=== PATIENT | male | born 1950 | race Caucasian/White ===

== ENCOUNTER 2020-04-06 07:57 | Outpatient (CLI) | payer MEDICARE, OTHER, SELFPAY ==
[2020-04-06 08:41] LABS: Add Urine Microscopic? NO
[2020-04-06 08:52] LABS: Bilirubin Urine Neg (NEGATIVE); Blood Urine Neg (Negative); Glucose Urine UA Norm (Normal); Ketones Urine Negative (Negative); Leukocyte Esterase Urine Negative (Negative); Nitrate Urine Negative (Negative); Protein Urine Neg (Negative); Specific Gravity, Urine 1.015 (1.005-1.030); Urine Appearance Clear (CLEAR); Urine Color Yellow (Yellow); Urobilinogen Urine Norm (Negative)
[2020-04-06 09:04] LABS: Alanine Aminotransferase 20 U/L (0-41); Albumin Level 4.5 g/dL (3.5-5.2); Alkaline Phosphatase 104 IU/L (40-130); Anion Gap 17.5 (5-19); Aspartate Amino Transferase 22 U/L (0-40); Blood Urea Nitrogen 53 mg/dL (8-23); Calcium 9.1 mg/dL (8.5-10.5); Carbon Dioxide 24 mmol/L (22-29); Chloride 107 mmol/L (98-107); Globulin 2.9 g/dL (1.3-4.6); Glucose 94 mg/dL (65-115); Osmolality Calculated 296 mOsm/kg (285-295); Potassium 4.5 mmol/L (3.5-5.1); Sodium 144 mmol/L (136-145); Total Bilirubin 0.4 mg/dL (0.15-1.2); Total Protein 7.4 g/dL (6.6-8.7)
== END 2020-04-06 07:58 | disposition home or self-care (01) ==
LOC: LAB 08:00
PROVIDERS: PCP Internal Medicine; Visit Provider Orthopaedic Surgery
DX: E11.9 Type 2 diabetes mellitus without complications (principal)
CPT/HCPCS: 36415; 80053; 81003

== ENCOUNTER 2020-08-10 07:50 | Outpatient (CLI) | payer MEDICARE, OTHER, SELFPAY ==
[2020-08-10 08:25] LABS: Alanine Aminotransferase 18 U/L (0-41); Albumin Level 4.5 g/dL (3.5-5.2); Alkaline Phosphatase 81 IU/L (40-130); Anion Gap 18.2 (5-19); Aspartate Amino Transferase 17 U/L (0-40); Blood Urea Nitrogen 57 mg/dL (8-23); Calcium 10.1 mg/dL (8.5-10.5); Carbon Dioxide 26 mmol/L (22-29); Chloride 102 mmol/L (98-107); Globulin 2.5 g/dL (1.3-4.6); Glucose 120 mg/dL (65-115); Osmolality Calculated 311 mOsm/kg (285-295); Potassium 4.2 mmol/L (3.5-5.1); Sodium 142 mmol/L (136-145); Total Bilirubin 0.4 mg/dL (0.15-1.2)
== END 2020-08-10 07:51 | disposition home or self-care (01) ==
LOC: LAB 07:54
PROVIDERS: PCP Internal Medicine; Visit Provider Orthopaedic Surgery
DX: E11.9 Type 2 diabetes mellitus without complications (principal)
CPT/HCPCS: 36415; 80053

== ENCOUNTER → 2021-09-13 10:51 | Outpatient (BNVA) | payer MEDICARE, SELFPAY | PROVIDERS: PCP Internal Medicine; Visit Provider Surgery | DX: Z01.818 Encounter for other preprocedural examination (principal); Z20.822 Contact with and (suspected) exposure to COVID-19 | CPT/HCPCS: 87635 ==

== ENCOUNTER 2021-09-16 05:44 | Day surgery (SDC) | payer MEDICARE, OTHER, SELFPAY ==
[2021-09-13 13:59] VITALS: BMI 29.0
--- NOTE | 2021-09-16 06:01 | P.HP_ITS ---
Same Day Surgery H&P Indication for Procedure/HPI DATE OF PROCEDURE: September 16, 2021 CHIEF COMPLAINT/INDICATIONFOR SURGICAL PROCEDURE: Colon polyps PREOP DIAGNOSIS: History of colon polyps PLANNED PROCEDRUE: Operation Date: 09/16/21 07:00 Proposed Procedures p Colonoscopy 27315 Z12.11(Not Applicable) - Sid Dimas MD 08/12/21 This is a pleasant 72 years old gentleman comes today escorted by his as he is referred to me for surveillance colonoscopy in preparation for kidney transplantation due to his chronic renal disease. Patient is getting dialysis Monday and Monday through a distal left forearm AV fistula. Patient denies any other symptoms. Patient did undergo colonoscopy back in 2018 by me and was found to have colon polyps. Interim history 09/16/2021 Patient comes today for surveillance colonoscopy ROS All systems have been reviewed negative except as for the above or per problem list Medications/Allergies* Home Medications Medication Instructions Recorded Confirmed Type allopurinol 100 mg tablet 200 mg PO DAILY tab 08/12/21 09/13/21 History ascorbic acid (vitamin C) 500 mg 500 mg PO DAILY 08/12/21 09/13/21 History tablet aspirin 81 mg tablet,delayed 81 mg PO DAILY 08/12/21 09/13/21 History release cholecalciferol (vitamin D3) 50 50 mcg PO DAILY 08/12/21 09/13/21 History mcg (2,000 unit) capsule citalopram 40 mg tablet 20 mg PO DAILY 08/12/21 09/13/21 History colchicine 0.6 mg tablet 0.3 mg PO DAILY 08/12/21 09/13/21 History insulin glargine 100 unit/mL (3 16 unit SUBCUT .qpm ml 08/12/21 09/13/21 History mL) subcutaneous pen insulin lispro 100 unit/mL 12 unit SUBCUT TID 08/12/21 09/13/21 History subcutaneous pen cdchdm-xukcsdkm-irogpvg 1 cap PO TID 08/12/21 09/13/21 History 12,000-38,000-60,000 unit capsule,delayed rel midodrine 5 mg tablet 5 mg PO DAILY 08/12/21 09/13/21 History omega 2-pvl-vyz-fish oil 1,000 mg 1 cap PO BID 08/12/21 09/13/21 History (120 mg-180 mg) capsule omeprazole 20 mg capsule,delayed 20 mg PO DAILY 08/12/21 09/13/21 History release simvastatin 80 mg tablet 80 mg PO DAILY 08/12/21 09/13/21 History tamsulosin 0.4 mg capsule 0.4 mg PO DAILY 08/12/21 09/13/21 History tolterodine 2 mg tablet 2 mg PO DAILY 08/12/21 09/13/21 History Allergies/Adverse Reactions Allergy/AdvReac Type Severity Reaction Status Date / Time No Known Allergies Allergy Unverified 08/14/21 14:09 Pertinent History/Comorbid Conditions* Family History (Updated 08/12/21 @ 08:43 by Melissa Adame MA) Diabetes CAD (coronary artery disease) Chronic kidney disease (CKD) Lung disease Cancer Social History Smoking and tobacco status: former smoker Pertinent Exam Findings alert, oriented x 3, regular rate & rhythm and procedure specific exam findings (Abdominal examination nontender nondistended soft) Recommendations Surgery/Procedure today (Colonoscopy) Other Plans: Plan of care; After thorough history and physical examination and reviewing the chart, plan to perform surveillance colonoscopy. I discussed with the patient in details the risks,benefits,alternatives and indications.The risk of aspiration, bleeding, soft tissue injury, perforation of the colon and other potential concomitant complications were explained to the patient in details,also the potential need for Laproscoy/Laparotomy to repair any related complications including but not limited to colectomy and or Closotomy.The patient understood this well and did agree to proceed. Rationale was carefully and clearly discussed with the patient.Appropriate informed consent have been reviewed and signed All questions have been answered and all concerns have been addressed to patient's satisfaction. Verbal and written Instructions were given to the patient for colonoscopy prep Coding Level of Care Code Acute Offal Icer Poultry for Joseph Manriquez
[2021-09-16 06:11] VITALS: BP 143/67; PULSE 84; RESP 18; TEMP 36.1; O2SAT 95
[2021-09-16] MEDS: sodium chloride 0.9% 1,000 ML 30 ML IV (06:25)
--- NOTE | 2021-09-16 06:41 | ANES.PREANE2 ---
Pre-Anesthetic Assessment Pre-Anesthetic Assessment: Height/Weight: Height 1.7 m Weight 83.915 kg Temp Pulse Resp BP Pulse Ox 97 F L 84 18 143/67 95 09/16/21 06:11 09/16/21 06:11 09/16/21 06:11 09/16/21 06:11 09/16/21 06:11 Preop Diagnosis: History of colon polyps Proposed Procedure: Operation Date: 09/16/21 07:00 Proposed Procedures p Colonoscopy 07951 Z12.11(Not Applicable) - Sid Dimas MD Last intake: Intake Last Liquid Date 09/15/21 Last Liquid Time 22:00 Last Solid Date 09/14/21 Last Solid Time 18:00 Social: Comment: hx smoking quit 10 months ago Exam: Pre-Anes Outpt Exam: alert, oriented x 3, clear to auscultation bilaterally and regular rate & rhythm Airway: Submandibular: WNL Cervical ROM: WNL MP: 3 Pulmonary: Pulmonary: None reported CV/HEM: CV/HEM: None reported : : Chronic renal failure Comments: dialysis since Hepatic: Hepatic: None reported GI: GI: None reported Metabolic: Metabolic: DM Musc/skel: Musc/skel: None reported Neuropsych: Neuropsych: Anxiety, CVA and Depression Anesthetic Plan: ASA status: 3 Anesthesia: Anesthesia Evaluation and MAC Risk of > 500 ml blood loss (7ml/kg in children): No Medications/Allergies Current Medications: Current Medications Generic Name Dose Route Start Last Admin Trade Name Freq PRN Reason Stop Dose Admin Sodium Chloride 1,000 mls @ 30 ml s/hr 09/16/21 06:00 09/16/21 06:25 Sodium Chloride 0.9% IV 30 mls/hr .Q24H CONTRERAS Administration PFSH Anesthesia PFSH: Family History Other CAD (coronary artery disease) Cancer Chronic kidney disease (CKD) Diabetes Lung disease Social History Smoking and tobacco status: former smoker Data Anesthesia Cardiac Studies: No Data to Display
[2021-09-16 07:32] VITALS: BP 90/44; PULSE 79; RESP 18; TEMP 36.5; O2SAT 93
[2021-09-16 07:48] VITALS: BP 98/52; PULSE 72; RESP 20; O2SAT 97
--- NOTE | 2021-09-16 10:03 | ANE.PACU2 ---
Inpatient post-anesthesia follow up: Airway intact: Yes Vital signs: Temperature 97.7 F Pulse Rate 72 Respiratory Rate 20 Blood Pressure 98/52 Pulse Oximetry 97 Oxygen Delivery Me thod Room Air Oxygen Flow Rate Fraction of Inspir ed Oxygen Hydration adequate: Yes Nausea and vomiting: No Pain level: 1 Mental status: Baseline
== END 2021-09-16 08:08 | disposition home or self-care (01) ==
PROVIDERS: PCP Family Medicine; Visit Provider Surgery
PROC: 0DJD8ZZ Inspection of Lower Intestinal Tract, Via Natural or Artificial Opening Endoscopic (ICD-10-PCS; CPT 45378; principal; 2021-09-16 07:00)
DX: Z12.11 Encounter for screening for malignant neoplasm of colon (principal); Z86.010 Personal history of colon polyps; D12.2 Benign neoplasm of ascending colon; D12.4 Benign neoplasm of descending colon; Z83.3 Family history of diabetes mellitus; Z82.49 Family history of ischemic heart disease and other diseases of the circulatory system; Z87.891 Personal history of nicotine dependence; N18.9 Chronic kidney disease, unspecified; Z99.2 Dependence on renal dialysis; E11.9 Type 2 diabetes mellitus without complications; Z79.4 Long term (current) use of insulin
CPT/HCPCS: 45380; 45385; 88305; J2704; J7030

== ENCOUNTER 2022-05-10 08:19 | Outpatient (RCR) | payer OTHER, MEDICARE, SELFPAY | END 2022-06-03 23:59 | disposition home or self-care (01) | LOC: SPT 08:19 | PROVIDERS: PCP Family Medicine; Visit Provider Family Medicine | DX: M62.81 Muscle weakness (generalized) (principal) | CPT/HCPCS: 97110; 97112; 97162 ==

== ENCOUNTER 2022-06-04 06:00 | Outpatient (RCR) | payer OTHER, SELFPAY | END 2022-07-04 23:59 | disposition home or self-care (01) | LOC: SPT 06:00 | PROVIDERS: PCP Family Medicine; Visit Provider Family Medicine | DX: M62.81 Muscle weakness (generalized) (principal) | CPT/HCPCS: 97110; 97112 ==

== ENCOUNTER 2022-07-07 06:11 | Outpatient (CLI) | payer OTHER, SELFPAY ==
--- NOTE | 2022-07-07 | USR_ITS ---
PROCEDURE INFORMATION: Exam: US Abdomen; Limited Exam date and time: 07/07/2022 6:39 AM Age: 72 years old Clinical indication: Screening exam; Other: Aaa screening TECHNIQUE: Imaging protocol: Real time ultrasound of the abdomen with image documentation. Limited exam focused on the region of clinical interest. COMPARISON: No relevant prior studies available. FINDINGS: Aorta: There is fusiform aneurysmal dilatation of the distal infrarenal abdominal aorta measuring up to 3.6 x 2.8 x 7.2 cm (AP x transverse x length). There is linear echogenic material within the lumen of the aneurysm, suspicious for dissection. Proximal abdominal aorta at 2.6 x 2.7 cm. Mid abdominal aorta 2.0 x 2.1 cm. Common iliac arteries: Left common iliac artery 0.9 x 0.9 cm. Right common iliac artery 1.0 x 0.8 cm. US/[place] [id number] IMPRESSION: Fusiform aneurysmal dilatation of the distal abdominal aorta, with linear echogenic material within the lumen, suspicious for dissection.
== END 2022-07-07 06:12 | disposition home or self-care (01) ==
LOC: RAD 06:11
PROVIDERS: PCP Family Medicine; Visit Provider Family Medicine
DX: Z13.6 Encounter for screening for cardiovascular disorders (principal); I77.811 Abdominal aortic ectasia
CPT/HCPCS: 76706

== ENCOUNTER 2022-07-07 07:36 | Emergency (ER) | payer OTHER, SELFPAY ==
--- NOTE | 2022-07-07 07:39 | XRR_ITS ---
PROCEDURE INFORMATION: Exam: XR Chest Exam date and time: 07/07/2022 7:46 AM Age: 72 years old Clinical indication: Cough and dyspnea; Patient HX: Abnormal aorta on US; Additional info: Dyspnea/cough TECHNIQUE: Imaging protocol: Radiologic exam of the chest. Views: 1 view. COMPARISON: CR XR shoulder RT min 2V* [id number] 10/08/2016 9:48 AM FINDINGS: Lungs: Unremarkable. No consolidation. Pleural spaces: Unremarkable. No pleural effusion. No pneumothorax. Heart/Mediastinum: Unremarkable. No cardiomegaly. Bones/joints: Unremarkable. XR/XR chest 1V portable [id number] IMPRESSION: No acute findings.
--- NOTE | 2022-07-07 07:39 | CT_ITS ---
WS: [id number] CT ANGIOGRAPHY OF THE ABDOMINAL AORTA WITH RUNOFF TO THE ANKLES HISTORY: dissection seen on US TECHNIQUE: Arterial injection is performed during imaging to evaluate the aorta and runoff vessels to the ankles. MIP and volume rendering imaging has also been performed. All images are reviewed. All C T scans at [facility] use at least one of these dose optimization techniques: automated exposu re control; mA and/or kV adjustment per patient size (includes targeted exams where dose is matched t o clinical indication); or iterative reconstruction. Contrast: Omnipaque 350; 100 mL IV. DLP: 646.10 mGy.cm COMPARISON: Prior CT 10/11/2012. Ultrasound 07/07/2022. Abdominal aorta: Extensive atherosclerotic plaque within the abdominal aorta. There is plaque which b ecomes nearly circumferential distally with narrowing of the lumen. Heavy calcification continues int o the iliac arteries bilaterally. Moderate stenosis involving the origins of the celiac axis and SMA. Calcified and noncalcified plaque in the mid to distal SMA. No aortic dissection is identified. There is no periaortic hematoma. Calcified plaque continues into the iliac arteries and femoral arteries bilaterally. RIGHT lower extremity runoff: Moderate plaque in the iliac artery through the internal and external i liac arteries and femoral artery. Focal areas of stenosis. Distal internal iliac artery is occluded. Multifocal areas of stenosis approaching 50% of the femoral artery. Mixed plaque with stenosis at 60% involving the proximal superficial femoral artery. Additional atherosclerotic plaque to the poplitea l artery. Intermittently visualized anterior tibial artery. Limited small vessel runoff to the ankle. LEFT lower extremity arterial system: Moderate plaque throughout the LEFT common iliac artery through the internal and external iliacs. 70% stenosis proximal and mid external iliac artery. Continued mul tifocal areas of stenosis throughout the superficial femoral artery to the popliteal artery. There is heavy calcified plaque. Plaque continues into the popliteal artery with no occlusions. Intermittentl y visualized calcification below the knee. Three-vessel runoff to the ankle and appears more robust t [place] on the RIGHT. Lung bases are clear. Normal size heart. Small hiatal hernia. Prior cholecystectomy. Pancreatic atrop hy. Calcifications through the visualized atrophic pancreas. No adrenal mass. No ischemic changes in the GI tract obstruction. Absent LEFT kidney. Small atrophied RIGHT kidney with acquired cysts. No solid mass identified. Diffu se bladder wall thickening due to underdistention and chronic outlet obstruction. Prostate gland is m ildly enlarged. Appendix has been removed. L4 anterolisthesis by 2 mm. Cystic changes developing in t he RIGHT femoral head. CT/CT angio abd aorta runof [id number] IMPRESSION: 1. No evidence for an aortic dissection or aneurysm. 2. Moderate to severe atherosclerotic disease throughout the aorta, mesenteric arteries and lower extremity arteries. There are areas of stenosis but no occl usions. 3. At least 60% stenosis proximal RIGHT superficial femoral artery. 4. Multifocal areas of 70% stenosis LEFT external iliac artery with additional moderate stenoses throughout the superficial femoral artery. 5. Slightly greater robust runoff to the LEFT ankle is compared to the RIGHT. RIGHT anterior tibial artery is only intermittently visualized. 6. Prior LEFT nephrectomy. 7. Prior appendectomy and cholecystectomy. 8. Atrophic RIGHT kidney with acquired cysts.
[2022-07-07 07:51] VITALS: BP 157/83; PULSE 81; RESP 18; TEMP 36.4; O2SAT 99; BMI 29.2
--- NOTE | 2022-07-07 07:57 | ECG_ITS ---
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 Measurements Intervals [place] Rate: 80 P: 84 LA: 160 QRS: 32 QRSD: 94 T: 65 QT: 394 QTc: 455 Interpretive Statements SINUS RHYTHM WITH SINUS ARRHYTHMIA Compared to ECG 04/18/2019 03:48:59 Sinus bradycardia no longer present Electronically Signed On 07-07-2022 15:03:27 CDT by Lras Dunn M.D. [email or web address] system [id number]
[2022-07-07 08:00] VITALS: BP 149/83; PULSE 79; RESP 18; O2SAT 99
[2022-07-07 08:02] LABS: Basophils # 0.1 10^3/uL (0.0-0.1); Basophils % 0.9 %; Eosinophils # 0.2 10^3/uL (0.0-0.8); Eosinophils % 2.8 %; Hematocrit 36.3 % (42.0-52.0); Hemoglobin 11.4 g/dL (11.7-16.6); Lymphocytes # 1.4 10^3/uL (0.8-4.8); Lymphocytes % 16.9 %; Mean Corpuscular HGB Conc 31.4 g/dL (30.0-36.0); Mean Corpuscular Hemoglobin 31.1 pg (28.0-34.0); Mean Corpuscular Volume 99.2 fl (80-94); Mean Platelet Volume 9.9 fL (7.4-10.4); Monocytes # 0.8 10^3/uL (0.2-0.9); Monocytes % 9.6 %; Neutrophils # 5.55 10^3/uL (1.8-7.7); Neutrophils % 69.3 %; Nucleated Red Blood Cells % 0 %; Platelet Count 183 10^3/cmm (130-400); Red Blood Count 3.66 10^6/uL (4.1-5.3); Red Cell Distribution Width 13.3 % (12.1-15.1)
[2022-07-07 08:15] VITALS: BP 155/80; PULSE 86; O2SAT 99
[2022-07-07 08:16] LABS: INR 0.99 (0.8-1.2); Partial Thromboplastin Time 26.6 SECONDS (23.9-36.7)
[2022-07-07] MEDS: iohexol 350 mg/mL 500 mL Btl (per mL) IV (08:28)
--- NOTE | 2022-07-07 08:32 | W.ED.GENADLT ---
HPI - General Adult General: Chief complaint: General Medical Stated complaint: Sent here after aorta scan Time Seen by Provider: 07/07/22 07:39 Source: patient Mode of arrival: wheelchair History of Present Illness: Ghipyoc-wtoe-nry male is in the x-ray department today getting ultrasound screening for abdominal aortic aneurysm the initial read came back for review read as having a dissection. He is brought emergently to the ER. He is having no symptoms at all. He does have a history of end-stage renal disease and is on dialysis Monday he did receive all his regular dialysis runs this week. He states he otherwise feels fine he is. He has not had any abdominal pain has not had any chest pain he is not had any discomfort with his bowels. No lightheadedness dizziness. Review of systems completely negative. Patient is nondiabetic he has previously had a stroke he has not had any coronary disease to date. Relieving factors: none Exacerbating factors: none Associated symptoms: Deny chest pain, confusion, cough, diaphoresis, decreased appetite, dyspnea, fevers/chills, headache(s), malaise, nausea, rash, palpitations, seizures, short of breath, syncope, vomiting or weakness Review of Systems Const: Denies: fever(s), chills, fatigue, malaise or diaphoresis ENMT: Denies: throat pain, ear or mastoid pain, nasal discharge or nasal congestion Card: Denies: chest pain, palpitations or syncope Resp: Denies: dyspnea GI: Denies: abdominal pain, nausea or vomiting : Denies: flank pain, difficulty urinating, dysuria, urinary frequency or urinary urgency Musc: Denies: back pain Skin/Breast: Denies: rash Neuro: Denies: headache(s) or confusion PFSH ED PFSH: Medical History Diabetes mellitus GERD (gastroesophageal reflux disease) History of bladder cancer History of colon polyps History of stroke 2009 Surgical History History of appendectomy History of cholecystectomy History of colonoscopy History of kidney removal left side Family History Other CAD (coronary artery disease) Cancer Chronic kidney disease (CKD) Diabetes Lung disease Social History Smoking and tobacco status: former smoker Physical Exam Const: GENERAL APPEARANCE: cooperative and comfortable ORIENTATION/CONSCIOUSNESS: Yes awake, Yes oriented to person, Yes oriented to place and Yes oriented to time Resp: COMMON NORMALS: normal respiratory effort, No retractions, No use of accessory muscles and clear to auscultation bilaterally AUSCULTATION: clear to auscultation bilaterally Cardio: COMMON NORMALS: regular rate, regular rhythm and No murmurs present (Cardio) RATE: regular rate RHYTHM: regular rhythm GI: COMMON NORMALS: Soft to palpation and No hepatosplenomegaly present AUSCULTATION: Yes normoactive bowel sounds PALPATION: Yes Soft to palpation, No Tenderness to palpation present (GI), No Guarding due to palpation present (GI) and Yes No hepatosplenomegaly present Extremity: COMMON NORMALS: normal to inspection, capillary refill normal, no clubbing, cyanosis or edema, no calf tenderness and no pedal edema Neuro: SENSORIUM/ORIENTATION: Yes oriented to person, Yes oriented to place and Yes oriented to time Skin: COMMON NORMALS: no rashes or lesions noted GENERAL SKIN EXAM: no rashes or lesions noted Course Vital Signs: Vital signs: Vital Signs Temperature 97.6 F 07/07/22 07:51 Pulse Rate 77 07/07/22 09:38 Respiratory Rate 18 07/07/22 08:00 Blood Pressure 140/84 07/07/22 09:38 Pulse Oximetry 97 07/07/22 09:38 Oxygen Delivery Me thod 07/07/22 08:00 [facility] - General Adult Medical Decision Making CT abdominal aorta does not show any aneurysm or dissection significant arteriosclerosis and significant amount of stenosis in the iliac bilaterally patient is sick has pretty noticeable intermittent claudication particularly of the left leg which correlates to the CT findings. At this point I think he can be discharged home and there is no evidence of aortic dissection or critical stenosis however he does have potentially limb threatening stenosis distally he is fine while at rest and has had intermittent claudication with activity this is been an ongoing issue. Encouraged him to follow-up with his primary care doctor for referral for further vascular evaluation and consideration of intervention. Medical Records I reviewed the patient's medical records. Lab Data I reviewed the patient's lab results. : 07/07/22 07:55 Radiology Impressions Aorta w/Runoff CTA 07/07/22 07:39 IMPRESSION: 1. No evidence for an aortic dissection or aneurysm. 2. Moderate to severe atherosclerotic disease throughout the aorta, mesenteric arteries and lower extremity arteries. There are areas of stenosis but no occlusions. 3. At least 60% stenosis proximal RIGHT superficial femoral artery. 4. Multifocal areas of 70% stenosis LEFT external iliac artery with additional moderate stenoses throughout the superficial femoral artery. 5. Slightly greater robust runoff to the LEFT ankle is compared to the RIGHT. RIGHT anterior tibial artery is only intermittently visualized. 6. Prior LEFT nephrectomy. 7. Prior appendectomy and cholecystectomy. 8. Atrophic RIGHT kidney with acquired cysts. Chest X-Ray 07/07/22 07:39 IMPRESSION: No acute findings. Laboratory Results WBC 8.0 10^3/uL (4.0-10.0) 07/07/22 07:55 RBC 3.66 10^6/uL (4.1-5.3) L 07/07/22 07:55 Hgb 11.4 g/dL (11.7-16.6) L 07/07/22 07:55 Hct 36.3 % (42.0-52.0) L 07/07/22 07:55 MCV 99.2 fl (80-94) H 07/07/22 07:55 MCH 31.1 pg (28.0-34.0) 07/07/22 07:55 MCHC 31.4 g/dL (30.0-36.0) 07/07/22 07:55 RDW 13.3 % (12.1-15.1) 07/07/22 07:55 Plt Count 183 10^3/cmm (130-400) 07/07/22 07:55 MPV 9.9 fL (7.4-10.4) 07/07/22 07:55 Neut % (Auto) 69.3 % 07/07/22 07:55 Lymph % (Auto) 16.9 % 07/07/22 07:55 [place] % (Auto) 9.6 % 07/07/22 07:55 Eos % (Auto) 2.8 % 07/07/22 07:55 Baso % (Auto) 0.9 % 07/07/22 07:55 Neut # (Auto) 5.55 10^3/uL (1.8-7.7) 07/07/22 07:55 Lymph # (Auto) 1.4 10^3/uL (0.8-4.8) 07/07/22 07:55 [place] # (Auto) 0.8 10^3/uL (0.2-0.9) 07/07/22 07:55 Eos # (Auto) 0.2 10^3/uL (0.0-0.8) 07/07/22 07:55 Baso # (Auto) 0.1 10^3/uL (0.0-0.1) 07/07/22 07:55 Nucleated RBC % (auto) 0 % 07/07/22 07:55 Nucleated RBCs # 0.0 /100WBC 07/07/22 07:55 PT 13.40 SECONDS (12.1-14.9) 07/07/22 07:55 INR 0.99 (0.8-1.2) 07/07/22 07:55 APTT 26.6 SECONDS (23.9-36.7) 07/07/22 07:55 Blood Type B Positive 07/07/22 08:21 Rho(D) Type Positive 07/07/22 08:21 Antibody Screen Negative 07/07/22 08:21 Discharge Plan Discharge Patient Disposition: Home Clinical Impression: Arteriosclerosis of abdominal aorta, Claudication, intermittent, Iliac artery stenosis, left Condition: Stable Prescriptions: No Action Lantus Solostar U-100 Insulin 100 unit/mL (3 mL) insulin pen 16 unit SUBCUT BEDTIME Label Comments: bedtime omega 2-uwp-uxw-fish oil [Fish Oil] 1,000 mg (120 mg-180 mg) capsule 1 cap PO BID cholecalciferol (vitamin D3) 50 mcg (2,000 unit) capsule 50 mcg PO QPM midodrine 5 mg tablet 5 mg PO TID Rx Instructions: do not give last dose of day after 6PM or within 4 hrs of bedtime omeprazole 20 mg capsule,delayed release(DR/EC) 20 mg PO DAILY citalopram 40 mg tablet 20 mg PO DAILY colchicine [Colcrys] 0.6 mg tablet See Rx Instructions .ROUTE .COMPLEX Rx Instructions: 0.3 mg orally TWO TIMES A WEEK- MONDAY AND MONDAY aspirin 81 mg tablet,delayed release (DR/EC) 81 mg PO DAILY Hold Instructions: Resume on 09/21/21. tolterodine [Detrol] 2 mg tablet 2 mg PO DAILY ascorbic acid (vitamin C) 500 mg tablet 1,000 mg PO BID allopurinol 100 mg tablet 200 mg PO DAILY simvastatin 80 mg tablet 40 mg PO QPM tamsulosin 0.4 mg capsule 0.4 mg PO DAILY Creon 12,000-38,000 -60,000 unit capsule,delayed release(DR/EC) 3 cap PO TID Rx Instructions: administer with meals and/or snacks bupropion HCl 150 mg tablet extended release 24 hr 150 mg PO QAM insulin lispro [Humalog KwikPen Insulin] 100 unit/mL insulin pen See Rx Instructions .ROUTE .COMPLEX Rx Instructions: SLIDING SCALE oxybutynin chloride 5 mg tablet 5 mg PO TID vit B comp no.9-mzsaf-M-biotin 1-60-300 mg-mg-mcg tablet 1 tab PO DAILY sevelamer HCl 800 mg tablet 800 mg PO TID Rx Instructions: must administer with a meal/food sodium bicarbonate 650 mg tablet 650 mg PO TID lanthanum 750 mg Tablet,Chewable 750 mg PO TID Rx Instructions: administer with food; chew thoroughly before swallowing Daily-Oliva Tablet 1 tab PO QAM Discharge Orders: Discharge ED (Routine); Ordered 07/07/22 Ordered By: Gomez Acuna Referrals: Annmarie Jacobson MD [Primary Care Provider] - Discharge Diet: Usual diet Discharge Activity: Increase activity as tolerated Patient Instructions: Opioid Safety, Pain Management Activity Restrictions/Additional Instructions: Follow-up with your primary care provider regarding the stenosis to the arteries in the legs for further evaluation and consideration of possible intervention. Coding Level of Care Code ED Turbine Engineer for Manfredg Fwd Exam Detailed
[2022-07-07 09:00] VITALS: BP 151/100; PULSE 77; O2SAT 99
[2022-07-07 09:38] VITALS: BP 140/84; PULSE 77; O2SAT 97
[2022-07-07 10:30] LABS: Adenovirus Not Detected (NOT DETECT); Chlamydia Pneumoniae Not Detected (NOT DETECT); Coronavirus 229E,HKU1,NL63,OC4 Not Detected (NOT DETECT); Human Metapneumovirus Not Detected (NOT DETECT); Human Rhinovirus/Enterovirus Not Detected (NOT DETECT); Influenza A Not Detected (NOT DETECT); Influenza A H1 Not Detected (NOT DETECT); Influenza A H1-2009 Not Detected (NOT DETECT); Influenza A H3 Not Detected (NOT DETECT); Influenza B Not Detected (NOT DETECT); Mycoplasma Pneumoniae Not Detected (NOT DETECT); Parainfluenza Virus Type 1 Not Detected (NOT DETECT); Parainfluenza Virus Type 2 Not Detected (NOT DETECT); Parainfluenza Virus Type 3 Not Detected (NOT DETECT); Parainfluenza Virus Type 4 Not Detected (NOT DETECT); Respiratory Syncytial Virus A Not Detected (NOT DETECT); Respiratory Syncytial Virus B Not Detected (NOT DETECT); SARS-COV-2 Not Detected (NOT DETECT)
== END 2022-07-07 09:40 | disposition home or self-care (01) ==
PROVIDERS: Emergency Provider Family Medicine; PCP Family Medicine
DX: I70.0 Atherosclerosis of aorta (principal); I70.212 Atherosclerosis of native arteries of extremities with intermittent claudication, left leg; Z79.82 Long term (current) use of aspirin; Z79.4 Long term (current) use of insulin; E11.9 Type 2 diabetes mellitus without complications; Z85.51 Personal history of malignant neoplasm of bladder; Z86.73 Personal history of transient ischemic attack (TIA), and cerebral infarction without residual deficits; Z90.5 Acquired absence of kidney; Z87.891 Personal history of nicotine dependence; Z20.822 Contact with and (suspected) exposure to COVID-19
CPT/HCPCS: 71045; 75635; 85025; 85610; 85730; 86850; 86900; 87635; 93005; 99285; Q9967

== ENCOUNTER 2022-07-29 10:50 | Inpatient (IN) | payer OTHER, SELFPAY ==
[2022-07-29 11:18] VITALS: PULSE 107; RESP 16; TEMP 37.9; O2SAT 97
[2022-07-29 12:47] LABS: Basophils % 0.3 %; Eosinophils % 0.3 %; Hematocrit 32.4 % (42.0-52.0); Hemoglobin 10.3 g/dL (11.7-16.6); Lymphocytes # 0.7 10^3/uL (0.8-4.8); Lymphocytes % 6.2 %; Mean Corpuscular HGB Conc 31.8 g/dL (30.0-36.0); Mean Corpuscular Hemoglobin 30.8 pg (28.0-34.0); Mean Platelet Volume 9.7 fL (7.4-10.4); Monocytes # 1.2 10^3/uL (0.2-0.9); Monocytes % 9.8 %; Neutrophils # 9.86 10^3/uL (1.8-7.7); Neutrophils % 83.1 %; Nucleated Red Blood Cells % 0 %; Platelet Count 174 10^3/cmm (130-400); Red Blood Count 3.34 10^6/uL (4.1-5.3); Red Cell Distribution Width 14.4 % (12.1-15.1); White Blood Count 11.9 10^3/uL (4.0-10.0)
--- NOTE | 2022-07-29 13:03 | ECG_ITS ---
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 Measurements Intervals [place] Rate: 104 P: 58 AK: 156 QRS: 7 QRSD: 99 T: 96 QT: 382 QTc: 503 Interpretive Statements SINUS TACHYCARDIA NONSPECIFIC T-WAVE ABNORMALITY Compared to ECG 07/07/2022 07:57:38 T-wave abnormality now present Sinus rhythm no longer present Sinus arrhythmia no longer present Electronically Signed On 07-30-2022 11:02:13 FIELD RING ASSEMBLER by Ross Campbell M.D. [email or web address] [email or web address] health [email or web address] hospital.[email or web address]/store/[id number]
[2022-07-29 13:05] LABS: Alanine Aminotransferase 14 U/L (0-41); Albumin Level 4.5 g/dL (3.5-5.2); Alkaline Phosphatase 91 U/L (40-130); Anion Gap 13.6 (5-19); Aspartate Amino Transferase 12 U/L (0-40); Blood Urea Nitrogen 16 mg/dL (8-23); Carbon Dioxide 37 mmol/L (22-29); Chloride 93 mmol/L (98-107); Globulin 2.9 g/dL (1.3-4.6); Glucose 77 mg/dL (65-115); Osmolality Calculated 290 mOsm/kg (285-295); Potassium 3.6 mmol/L (3.5-5.1); Sodium 140 mmol/L (136-145); Total Bilirubin 0.7 mg/dL (0.15-1.2); Total Protein 7.4 g/dL (6.6-8.7)
[2022-07-29 13:08] LABS: Glucose Point of Care 85 mg/dL (70-110)
--- NOTE | 2022-07-29 13:18 | PC.NURSE ---
PT PLACED ON CONTINUOUS NIBP, SPO2, AND CM
[2022-07-29 13:20] VITALS: BP 101/60; PULSE 102; RESP 16; O2SAT 96
[2022-07-29 13:22] LABS: Lactic Sepsis W/Reflex 1.6 mmol/L (0.5-2.2)
--- NOTE | 2022-07-29 13:25 | ED_ITS ---
HPI - Fever General: Chief Complaint: Fever Stated Complaint: Weakness, bump on rearend Time Seen by Provider: 07/29/22 13:00 Source: patient Mode of arrival: ambulatory History of Present Illness: 72-year-old male who presents emergency room with complaint of weakness describes a lump in the gluteal cleft area. He has had a low-grade fever as well. Is been red and irritated and inflamed. He had a full course of dialysis today he has been a little bit confused at times he is slightly tachycardic. No drainage from the wound. No vomiting no dysuria urgency or frequency he does still does have urine production. MD elicited complaint: fever, malaise and weakness Pertinent past history: other (End-stage renal disease) Exacerbating factors: nothing Relieving factors: nothing Associated symptoms: Reports chills and confusion; Deny abdominal pain, flank pain, chest pain, cough, diarrhea, dysuria, extremity pain, headache(s), myalgias, nasal congestion, nausea, night sweats, rash, rhinorrhea, short of breath, sinus pain, stiffness, sore throat, vomiting or weight loss Treatments prior to arrival fever: none Review of Systems Const: Reports: fever(s), chills, fatigue and malaise; Denies: night sweats ENMT: Denies: nasal congestion or sinus pain Card: Denies: chest pain, palpitations or irregular heart rhythm Resp: Denies: dyspnea, productive cough or non-productive cough GI: Denies: abdominal pain, nausea, vomiting or diarrhea : Denies: flank pain or dysuria Musc: Denies: extremity pain Skin/Breast: Reports: erythema, skin tenderness and skin swelling Neuro: Reports: confusion; Denies: headache(s) PFSH ED PFSH: Medical History Acute metabolic encephalopathy Anxiety BPH (benign prostatic hyperplasia) Depression Diabetes mellitus ESRD (end stage renal disease) ESRD on dialysis GERD (gastroesophageal reflux disease) Gout History of bladder cancer History of colon polyps History of stroke 2010 Flor-rectal abscess Surgical History History of appendectomy History of cholecystectomy History of colonoscopy History of kidney removal left side Family History Other CAD (coronary artery disease) Cancer Chronic kidney disease (CKD) Diabetes Lung disease Social History Smoking and tobacco status: former smoker Alcohol intake: never Physical Exam Const: GENERAL APPEARANCE: cooperative and comfortable ORIENTATION/CONSCIOUSNESS: Yes awake HENMT: COMMON NORMALS: normocephalic, atraumatic and hearing grossly normal bilaterally HEAD & SCALP: normocephalic and atraumatic Lymph: LYMPHATIC: no lymphadenopathy noted and no lymphedema noted Resp: COMMON NORMALS: normal respiratory effort, No retractions, No use of accessory muscles and clear to auscultation bilaterally AUSCULTATION: clear to auscultation bilaterally Cardio: COMMON NORMALS: regular rate, regular rhythm and No murmurs present (Cardio) RATE: regular rate RHYTHM: regular rhythm GI: COMMON NORMALS: Soft to palpation and No hepatosplenomegaly present AUSCULTATION: Yes normoactive bowel sounds PALPATION: Yes Soft to palpation, No Tenderness to palpation present (GI), No Guarding due to palpation present (GI) and Yes No hepatosplenomegaly present Extremity: COMMON NORMALS: normal to inspection, capillary refill normal, no clubbing, cyanosis or edema, no calf tenderness and no pedal edema Skin: OTHER: Large indurated pilonidal cyst at the left side of the gluteal cleft. Consistent with on findings on CT. Course Vital Signs: Vital signs: Vital Signs Temperature 97.9 F 08/02/22 14:45 Pulse Rate 69 08/02/22 14:45 Respiratory Rate 17 08/02/22 14:45 Blood Pressure 139/71 08/02/22 14:45 Pulse Oximetry 97 08/02/22 14:45 Oxygen Delivery Me thod 08/01/22 23:33 MDM - Fever Medical Decision Making Large pilonidal cyst on CT Will need surgical incision and drainage will admit to the hospitalist for care of his multiple medical comorbidities consult surgery for incision and drainage discussed with surgery on-call anticipate incision and drainage in the morning. Medical Records I reviewed the patient's medical records. Lab Data I reviewed the patient's lab results. 07/29/22 12:34 07/29/22 12:[address] 07/29/22 13:25 IMPRESSION: 1. New LEFT perianal abscess measures 2.3 x 3.6 cm. There is a small tract that does extend to the LEFT lateral anus from the perineum. 2. Foreign body like object in the ascending colon measuring 18 x 3 mm. Was also present on the study of 11/03/2021. If this is a foreign body there is potent ial for colon perforation. Laboratory Results WBC 11.9 10^3/uL (4.0-10.0) H 07/29/22 12:34 RBC 3.34 10^6/uL (4.1-5.3) L 07/29/22 12:34 Hgb 10.3 g/dL (11.7-16.6) L 07/29/22 12:34 Hct 32.4 % (42.0-52.0) L 07/29/22 12:34 MCV 97.0 fl (80-94) H 07/29/22 12:34 MCH 30.8 pg (28.0-34.0) 07/29/22 12:34 MCHC 31.8 g/dL (30.0-36.0) 07/29/22 12:34 RDW 14.4 % (12.1-15.1) 07/29/22 12:34 Plt Count 174 10^3/cmm (130-400) 07/29/22 12:34 MPV 9.7 fL (7.4-10.4) 07/29/22 12:34 Neut % (Auto) 83.1 % 07/29/22 12:34 Lymph % (Auto) 6.2 % 07/29/22 12:34 Kimball % (Auto) 9.8 % 07/29/22 12:34 Eos % (Auto) 0.3 % 07/29/22 12:34 Baso % (Auto) 0.3 % 07/29/22 12:34 Neut # (Auto) 9.86 10^3/uL (1.8-7.7) H 07/29/22 12:34 Lymph # (Auto) 0.7 10^3/uL (0.8-4.8) L 07/29/22 12:34 Kimball # (Auto) 1.2 10^3/uL (0.2-0.9) H 07/29/22 12:34 Eos # (Auto) 0.0 10^3/uL (0.0-0.8) 07/29/22 12:34 Baso # (Auto) 0.0 10^3/uL (0.0-0.1) 07/29/22 12:34 Nucleated RBC % (auto) 0 % 07/29/22 12:34 Nucleated RBCs # 0.0 /100WBC 07/29/22 12:34 Sodium 140 mmol/L (136-145) 07/29/22 12:34 Potassium 3.6 mmol/L (3.5-5.1) 07/29/22 12:34 Chloride 93 mmol/L (98-107) L 07/29/22 12:34 Carbon Dioxide 37 mmol/L (22-29) H 07/29/22 12:34 Anion Gap 13.6 (5-19) 07/29/22 12:34 BUN 16 mg/dL (8-23) 07/29/22 12:34 Creatinine 3.0 mg/dL (0.7-1.2) H 07/29/22 12:34 GFR Calculation Not Reportable 07/29/22 12:34 Glucose 77 mg/dL (65-115) 07/29/22 12:34 POC Glucose 85 mg/dL (70-110) 07/29/22 13:05 Calculated Osmolality 290 mOsm/kg (285-295) 07/29/22 12:34 Lactic Acid 1.6 mmol/L (0.5-2.2) 07/29/22 12:34 Calcium 10.0 mg/dL (8.5-10.5) 07/29/22 12:34 Total Bilirubin 0.7 mg/dL (0.15-1.2) 07/29/22 12:34 AST 12 U/L (0-40) 07/29/22 12:34 ALT 14 U/L (0-41) 07/29/22 12:34 Alkaline Phosphatase 91 U/L (40-130) 07/29/22 12:34 Total Protein 7.4 g/dL (6.6-8.7) 07/29/22 12:34 Albumin 4.5 g/dL (3.5-5.2) 07/29/22 12:34 Globulin 2.9 g/dL (1.3-4.6) 07/29/22 12:34 Discharge Plan Discharge Patient Disposition: Placed in Observation Admit Provider: Red Granados Clinical Impression: Flor-rectal abscess, ESRD on dialysis Coding Level of Care Code ED Agricultural Economics Teacher for Joseph Manriquez
--- NOTE | 2022-07-29 13:25 | CT_ITS ---
WS: [id number] CT PELVIS WITH CONTRAST. HISTORY: perirectal abscess TECHNIQUE: Contiguous imaging is performed of the pelvis with contrast. Coronal and sagittal reformat s are reviewed. All CT scans at [facility] use at least one of these dose optimization techni ques: automated exposure control; mA and/or kV adjustment per patient size (includes targeted exams w here dose is matched to clinical indication); or iterative reconstruction. DLP: 407.21 mGy.cm Contrast: Omnipaque 350; 100 mL IV. COMPARISON: 07/07/2022 New LEFT perianal abscess with enhancing wall and adjacent soft tissue inflammation is now identified . The abscess cavity measures 2.3 x 3.6 cm. Moderate amount of soft tissue inflammation extends into the LEFT perineum and along the posterior gluteal cleft. There is a small tract that does extend ante riorly towards the very LEFT lateral anus. Extensive calcification in the distal aorta and iliac arteries. There is no free fluid or adenopathy within the pelvis. Urinary bladder is normal. Mild prostate gland enlargement. Linear hyperdense stru cture is noted within the RIGHT colon. This measures 18 x 3 mm and was also present on the recent CT although slightly different angle on today's examination. This could represent a foreign body within the colon and the patient may be a risk for perforation. May be something the patient ingested. Soft tissue thickening over the RIGHT lateral pelvis may be an area of hematoma or focal edema. CT/CT pelvis w con* [id number] IMPRESSION: 1. New LEFT perianal abscess measures 2.3 x 3.6 cm. There is a small tract tayler t does extend to the LEFT lateral anus from the perineum. 2. Foreign body like object in the ascending colon measuring 18 x 3 mm. Was al so present on the study of 11/03/2021. If this is a foreign body there is potenti al for colon perforation.
[2022-07-29] MEDS: ondansetron 2 mg/ML SDV 2 mL 4 MG IVP (13:33)
[2022-07-29] MEDS: sodium chloride 0.9% 1,000 ML 999 ML IV (13:33)
[2022-07-29] MEDS: iohexol 350 mg/mL 500 mL Btl (per mL) IV (13:43)
[2022-07-29 14:00] VITALS: BP 124/58; PULSE 102; RESP 24; O2SAT 94
[2022-07-29 14:30] VITALS: BP 135/67; PULSE 103; RESP 23; O2SAT 93
--- NOTE | 2022-07-29 15:03 | PM.HP ---
Providers/Chief Complaint Admitting Physician: Red Granados MD Primary Care Provider: Annmarie Jacobson MD Chief Complaint: Weakness, bump on rearend History of Present Illness Alonso Delgado is a 72 year old male with a past medical history significant for type 2 diabetes mellitus, GERD, bladder cancer, stroke, and ESRD on hemodialysis who presents to the emergency department with fever and gluteal pain x3 days. Patient endorses intermittent fevers for the past three days. Reports growing gluteal cleft mass which has been progressively growing he first noticed three days ago. Describes the mass as painful. Spouse is present and states he has had intermittent confusion, worse than his baseline confusion from his stroke several years ago. She states the worsening in his confusion happened about three days ago. In the ED, patient was found to have perianal abscess on exam. CT imaging revealed a left-sided perianal abscess measuring 2.3 x 3.6 cm with a small tract extending lateral to the anus from the perineum. There was also redemonstration of a incidental radiographic foreign body measuring 18 x 3 mm. Patient denies chest pain, shortness of breath, nausea, or emesis. Review of Systems Narrative: A complete review of systems was obtained and is negative except as stated in HPI. Medications/Allergies Home Medications Medication Instructions Recorded Confirmed Last Taken Type allopurinol 100 mg tablet 200 mg PO DAILY 08/12/21 07/29/22 07/29/22 History ascorbic acid (vitamin C) 500 mg 1,000 mg PO BID 08/12/21 07/07/22 07/29/22 History tablet aspirin 81 mg tablet,delayed 81 mg PO DAILY 08/12/21 07/07/22 07/29/22 History release cholecalciferol (vitamin D3) 50 50 mcg PO QPM 08/12/21 07/07/22 07/29/22 History mcg (2,000 unit) capsule citalopram 40 mg tablet 20 mg PO DAILY 08/12/21 07/07/22 07/29/22 History colchicine 0.6 mg tablet (Colcrys) See Rx Instructions .Route .COMPLEX 08/12/21 07/07/22 07/29/22 History insulin glargine 100 unit/mL (3 16 unit SUBCUT BEDTIME 08/12/21 07/07/22 07/28/22 History mL) subcutaneous pen (Lantus Solostar U-100 Insulin) [id number] 3 cap PO TID 08/12/21 07/07/22 07/29/22 History 12,000-38,000-60,000 unit capsule,delayed rel (Creon) midodrine 5 mg tablet 5 mg PO TID 08/12/21 07/07/22 07/29/22 History omega 4-bcy-tvz-fish oil 1,000 mg 1 cap PO BID 08/12/21 07/07/22 07/29/22 History (120 mg-180 mg) capsule (Fish Oil) omeprazole 20 mg capsule,delayed 20 mg PO DAILY 08/12/21 07/07/22 07/29/22 History release simvastatin 80 mg tablet 40 mg PO QPM 08/12/21 07/07/22 07/29/22 History tamsulosin 0.4 mg capsule 0.4 mg PO DAILY 08/12/21 07/07/22 07/29/22 History tolterodine 2 mg tablet (Detrol) 2 mg PO DAILY 08/12/21 07/07/22 07/29/22 History bupropion HCl 150 mg 24 hr tablet, 150 mg PO QAM 01/03/22 07/07/22 07/29/22 History extended release insulin lispro 100 unit/mL See Rx Instructions .Route .COMPLEX 01/03/22 07/07/22 07/29/22 History subcutaneous pen (Humalog KwikPen (U-100) Insulin) oxybutynin chloride 5 mg tablet 5 mg PO TID 01/03/22 07/07/22 07/29/22 History vitamin B comp no.3-folic acid 1 1 tab PO DAILY 01/03/22 07/07/22 07/06/22 History mg-vit C 60 mg-biotin 300 mcg tablet sevelamer HCl 800 mg tablet 800 mg PO TID 06/14/22 07/07/22 07/29/22 History sodium bicarbonate 650 mg tablet 650 mg PO TID 06/14/22 07/07/22 07/29/22 History multivitamin (Daily-Oliva tablet) 1 tab PO QAM 07/07/22 07/07/22 07/29/22 History Allergies Allergy/AdvReac Type Severity Reaction Status Date / Time No Known Allergies Allergy Verified 07/29/22 15:22 PFSH Acute PFSH: Medical History (Updated 07/29/22 @ 15:44 by Red Granados MD) Diabetes mellitus ESRD (end stage renal disease) GERD (gastroesophageal reflux disease) History of bladder cancer History of colon polyps History of stroke 2009 Surgical History History of appendectomy History of cholecystectomy History of colonoscopy History of kidney removal left side Family History Other CAD (coronary artery disease) Cancer Chronic kidney disease (CKD) Diabetes Lung disease Social History (Updated 07/29/22 @ 15:06 by Red Granados MD) Smoking and tobacco status: former smoker Alcohol intake: never Substance/Drug Use: never Vitals/I&O/Wt Last Vital Signs Temp 100.2 F H 07/29/22 11:18 Pulse 102 H 07/29/22 13:20 Resp 16 07/29/22 13:20 BP 101/60 07/29/22 13:20 Pulse Ox 96 07/29/22 13:20 Weight last 48 hrs Weight 82.1 kg Physical Exam Narrative: General: Patient is awake. Head: Normocephalic. Atraumatic. EOM intact. Neck: No JVD. Cardiovascular: No gallops. No murmurs. Tachycardic. Lower extremity edema bilaterally. Lungs: Clear to auscultation, no use of accessory muscles, no crackles or wheezes. Skin: No jaundice. No rashes. Abdomen: Normal bowel sounds, abdomen soft and nontender. Genito Urinary: Genital exam not performed since complaints not related. Rectal: There is palpable mass on left gluteal cleft that is red and tender to palpation. Extremities: No cyanosis or clubbing. Musculoskeletal: No swollen or erythematous joints. Neurological: Moves all 4 extremities. No myoclonus. Data 07/29/22 12:34 07/29/22 12:34 Micro: Microbiology 07/29/22 13:24 Blood Culture - Preliminary Blood SPECIMEN COLLECTED 07/29/22 13:18 Blood Culture - Preliminary Blood SPECIMEN COLLECTED A&P Assessment and plan (1) Flor-rectal abscess: General surgery consulted Start Zosyn Wound care (2) Acute metabolic encephalopathy: Secondary to infection Treat underlying infection Frequent reorientation (3) ESRD on dialysis: Will need nephro consult if he stays through weekend Continue Sevelamer Continue Na bicarb Continue midodrine Renally dose medications Avoid nephrotoxins (4) Anxiety: Continue Wellbutrin (5) Depression: Continue Celexa (6) Gout: Continue allopurinol (7) BPH (benign prostatic hyperplasia): Continue Flomax Plan DVT ppx: SCD Code status: Full Code Attestations Medical Necessity Statement*: Patient presents with fevers and altered mental status, found to have left-sided gluteal abscess requiring admission for IV antibiotics and general surgery evaluation with expected hospitalization not to cross two midnights. Coding Level of Care Code Acute Motorcycle Mechanic for g Fwd Diagnoses Flor-rectal abscess K61.1 Acute metabolic encephalopathy G93.41 ESRD on dialysis N18.6; Z99.2 Anxiety F41.9 Depression F32.A Gout M10.9 BPH (benign prostatic hyperplasia) N40.0
[2022-07-29 16:41] LABS: Blood Urine Neg (Negative); Glucose Urine UA 1+ (Normal); Ketones Urine 1+ (Negative); Protein Urine 1+ (Negative); Urine Appearance Clear (CLEAR); Urine Color Yellow (Yellow); pH Urine 9 (5-7)
[2022-07-29 16:42] LABS: Add Urine Microscopic? YES; Bilirubin Urine Neg (Negative); Leukocyte Esterase Urine Negative (Negative); Nitrate Urine Negative (Negative); Sulfosalicylic Acid Urine Positive (Negative); Urobilinogen Urine Norm (Negative)
[2022-07-29 16:48] LABS: Add Urine Culture? No; Bacteria Urine TRACE /hpf; RBC Urine 0-4 /hpf (0-2); Squamous Epithelial Cell Urine 0-4 /hpf (0-5)
[2022-07-29 16:49] LABS: Glucose Point of Care 96 mg/dL (70-110)
[2022-07-29 16:51] VITALS: BMI 28.3
[2022-07-29] MEDS: vancomycin 1,000 MG in sodium chloride 0.9% 250 ML 250 MG IV (17:13)
[2022-07-29] MEDS: atorvastatin 40 mg Tablet PO (17:14)
[2022-07-29] MEDS: sevelamer 800 mg Tablet PO (18:18)
[2022-07-29] MEDS: piperacillin-tazobactam 2.25 GM in sodium chloride 0.9% (plus) 50 ML IV (18:19)
[2022-07-29 20:00] VITALS: BP 112/67; PULSE 102; RESP 18; TEMP 36.8; O2SAT 91
[2022-07-29 20:54] LABS: Glucose Point of Care 206 mg/dL (70-110)
[2022-07-29] MEDS: sodium bicarbonate 650 mg Tablet PO (21:29)
[2022-07-29] MEDS: oxybutynin 5 mg Tablet PO (21:29)
[2022-07-29] MEDS: insulin lispro 100 unit/1 mL SUBCUT (21:29)
[2022-07-29] MEDS: midodrine 5 mg TABLET PO (21:29)
[2022-07-29] MEDS: insulin glargine 100 units/1 mL 16 UNIT SUBCUT (21:29)
[2022-07-30] VITALS: BP 114/64; PULSE 93; RESP 17; TEMP 37.1; O2SAT 92
[2022-07-30] MEDS: piperacillin-tazobactam 3.375 GM in sodium chloride 0.9% (plus) 50 ML IV ×3 (01:18→17:36)
[2022-07-30 04:00] VITALS: BP 124/60; PULSE 87; RESP 16; TEMP 36.7; O2SAT 90
[2022-07-30 05:02] LABS: Basophils # 0.1 10^3/uL (0.0-0.1); Basophils % 0.7 %; Eosinophils # 0.1 10^3/uL (0.0-0.8); Eosinophils % 0.7 %; Hematocrit 28.7 % (42.0-52.0); Hemoglobin 9.1 g/dL (11.7-16.6); Lymphocytes # 0.7 10^3/uL (0.8-4.8); Lymphocytes % 8.7 %; Mean Corpuscular HGB Conc 31.7 g/dL (30.0-36.0); Mean Corpuscular Hemoglobin 31.3 pg (28.0-34.0); Mean Corpuscular Volume 98.6 fl (80-94); Mean Platelet Volume 10.2 fL (7.4-10.4); Monocytes # 0.8 10^3/uL (0.2-0.9); Monocytes % 9.3 %; Neutrophils # 6.43 10^3/uL (1.8-7.7); Neutrophils % 80.2 %; Nucleated Red Blood Cells % 0 %; Platelet Count 145 10^3/cmm (130-400); Red Blood Count 2.91 10^6/uL (4.1-5.3); Red Cell Distribution Width 14.6 % (12.1-15.1)
[2022-07-30 05:32] LABS: Anion Gap 11.8 (5-19); Blood Urea Nitrogen 25 mg/dL (8-23); Calcium 9.2 mg/dL (8.5-10.5); Carbon Dioxide 30 mmol/L (22-29); Chloride 94 mmol/L (98-107); Glucose 72 mg/dL (65-115); Magnesium 1.7 mg/dL (1.7-2.3); Osmolality Calculated 277 mOsm/kg (285-295); Phosphorus 2.4 mg/dL (2.5-4.5); Potassium 3.8 mmol/L (3.5-5.1); Sodium 132 mmol/L (136-145)
--- NOTE | 2022-07-30 06:04 | PM.CONSULT ---
Providers/Reason For Consult Consulting Physician/Specialty*: Dr. Edvin Nelson, DO/General surgery Reason for Consult*: Perirectal abscess Attending Physician: Red Granados MD Primary Care Provider: Annmarie Jacobson MD History of Present Illness History of Present Illness Alonso Delgado is a 72 year old male who presented to the hospital with a 3-day history of left buttock pain. According the notes family reported that he was more confused than normal. This morning he is not confused at all. Awake alert and oriented x3. He has a left buttock abscess that is open and easily draining. He reports left perirectal pain for the last 3 days. Denies any fever or chills. Pain does not radiate. Pain is sharp. Palpation makes pain worse. Nothing seems to make the pain better. He is a dialysis patient and last got dialysis yesterday. Review of Systems General: Reports: 10 or more systems reviewed and unremarkable except in HPI and below Medications/Allergies Home Medications Medication Instructions Recorded Confirmed Last Taken Type allopurinol 100 mg tablet 200 mg PO DAILY 08/12/21 07/29/22 07/29/22 History ascorbic acid (vitamin C) 500 mg 1,000 mg PO BID 08/12/21 07/29/22 07/29/22 History tablet aspirin 81 mg tablet,delayed 81 mg PO DAILY 08/12/21 07/29/22 07/29/22 History release cholecalciferol (vitamin D3) 50 50 mcg PO QPM 08/12/21 07/29/22 07/29/22 History mcg (2,000 unit) capsule citalopram 40 mg tablet 20 mg PO DAILY 08/12/21 07/29/22 07/29/22 History colchicine 0.6 mg tablet (Colcrys) See Rx Instructions .Route .COMPLEX 08/12/21 07/29/22 07/29/22 History insulin glargine 100 unit/mL (3 16 unit SUBCUT BEDTIME 08/12/21 07/29/22 07/28/22 History mL) subcutaneous pen (Lantus Solostar U-100 Insulin) [id number] 3 cap PO TID 08/12/21 07/29/22 07/29/22 History 12,000-38,000-60,000 unit capsule,delayed rel (Creon) midodrine 5 mg tablet 5 mg PO TID 08/12/21 07/29/22 07/29/22 History omega 2-psn-rkv-fish oil 1,000 mg 1 cap PO BID 08/12/21 07/29/22 07/29/22 History (120 mg-180 mg) capsule (Fish Oil) omeprazole 20 mg capsule,delayed 20 mg PO DAILY 08/12/21 07/29/22 07/29/22 History release simvastatin 80 mg tablet 40 mg PO QPM 08/12/21 07/29/22 07/29/22 History tamsulosin 0.4 mg capsule 0.4 mg PO DAILY 08/12/21 07/29/22 07/29/22 History tolterodine 2 mg tablet (Detrol) 2 mg PO DAILY 08/12/21 07/29/22 07/29/22 History bupropion HCl 150 mg 24 hr tablet, 150 mg PO QAM 01/03/22 07/29/22 07/29/22 History extended release insulin lispro 100 unit/mL See Rx Instructions .Route .COMPLEX 01/03/22 07/29/22 07/29/22 History subcutaneous pen (Humalog KwikPen (U-100) Insulin) oxybutynin chloride 5 mg tablet 5 mg PO TID 01/03/22 07/29/22 07/29/22 History vitamin B comp no.3-folic acid 1 1 tab PO DAILY 01/03/22 07/29/22 07/29/22 History mg-vit C 60 mg-biotin 300 mcg tablet sevelamer HCl 800 mg tablet 800 mg PO TID 06/14/22 07/29/22 07/29/22 History sodium bicarbonate 650 mg tablet 650 mg PO TID 06/14/22 07/29/22 07/29/22 History multivitamin (Daily-Oliva tablet) 1 tab PO QAM 07/07/22 07/29/22 07/29/22 History Allergies Allergy/AdvReac Type Severity Reaction Status Date / Time No Known Allergies Allergy Verified 07/29/22 15:22 Current Medications Generic Name Dose Route Start Last Admin Trade Name Freq PRN Reason Stop Dose Admin Atorvastatin Calcium 40 mg 07/29/22 18:00 07/29/22 17:14 Atorvastatin 40 Mg Tablet PO 40 mg QPM CONTRERAS Administration Piperacillin Sod/Tazobactam 50 mls @ 12.5 mls/hr 07/30/22 01:00 07/30/22 05:32 Sod 3.375 gm/ Sodium Chloride IV Infused Q8H CONTRERAS Infusion Insulin Glargine 16 unit 07/29/22 21:00 07/29/22 21:29 Insulin Glargine 100 Units/1 Ml SUBCUT 16 unit BEDTIME CONTRERAS Administration Insulin Human Lispro 0 unit 07/29/22 18:00 07/29/22 21:29 Insulin Lispro 100 Unit/1 Ml SUBCUT 6 unit WM&BEDTIME CONTRERAS Administration Protocol Midodrine 5 mg 07/29/22 21:00 07/29/22 21:29 Midodrine 5 Mg Tablet PO 5 mg TID CONTRERAS Administration Non-Formulary Medication 3 cap 07/29/22 21:00 07/29/22 21:30 [id number]-[id number]-[id number] [Creon] PO 3 cap TID CONTRERAS Administration Oxybutynin Chloride 5 mg 07/29/22 21:00 07/29/22 21:29 Oxybutynin 5 Mg Tablet PO 5 mg TID CONTRERAS Administration Sevelamer Carbonate 800 mg 07/29/22 17:30 07/29/22 18:18 Sevelamer 800 Mg Tablet PO 800 mg AC CONTRERAS Administration Sodium Bicarbonate 650 mg 07/29/22 21:00 07/29/22 21:29 Sodium Bicarbonate 650 Mg Tablet PO 650 mg TID CONTRERAS Administration PFSH Acute PFSH: Medical History Diabetes mellitus ESRD (end stage renal disease) GERD (gastroesophageal reflux disease) History of bladder cancer History of colon polyps History of stroke 2009 Surgical History History of appendectomy History of cholecystectomy History of colonoscopy History of kidney removal left side Family History Other CAD (coronary artery disease) Cancer Chronic kidney disease (CKD) Diabetes Lung disease Social History Smoking and tobacco status: former smoker Alcohol intake: never Substance/Drug Use: never Vitals/I&O/Wt Last Vital Signs Temp 98.1 F 07/30/22 04:00 Pulse 87 07/30/22 04:00 Resp 16 07/30/22 04:00 BP 124/60 07/30/22 04:00 Pulse Ox 90 07/30/22 04:00 O2 Del Method 07/29/22 16:51 07/29/22 07/29/22 07/30/22 14:59 22:59 06:59 Intake Total 1480 / 1480 50 / 1530 Output Total 400 / 401 Balance 1479 / 1479 -350 / 1129 Weight last 48 hrs Weight 181 lb Weight 181 lb Physical Exam Narrative: General : Patient is well developed , no acute distress, oriented x3 Head : Normal cephalic, a-traumatic. Ears : Pinnae and external canal are normal. Hearing is normal. Eyes : PERRLA, Sclera and injection are normal. No conjunctival discharge. Nose : Mucous membranes are without erythema. Throat : buccal mucosa is normal, gums are without significant recession or hypertrophy. Lungs : Equal chest rise bilaterally, no use of accessory muscles, trachea is midline. Cor : Rate and rhythm are normal. Abdomen : Soft, ND, NT, no g/r/m Skin: Purulent drainage from a left perirectal abscess which is minimally tender. Extremities : No edema, no cyanosis or clubbing, dorsalis pedis pulses are present bilaterally, non-tender to palpation of calves. Upper extremities are normal bilaterally. Data 07/30/22 04:31 07/30/22 04:31 Micro: Microbiology 07/29/22 13:24 Blood Culture - Preliminary Blood SPECIMEN COLLECTED 07/29/22 13:18 Blood Culture - Preliminary Blood SPECIMEN COLLECTED A&P Assessment and plan (1) Flor-rectal abscess: Plan N.p.o. after midnight To the OR tomorrow for incision and drainage of left perirectal abscess Risk and benefits of procedure, including but not limited to, bleeding, infection, damage surrounding structures, scar, numbness, pain, recurrence, need for further surgery because of fistula, or explained to the patient. He is understand the risks and wishes to proceed. Coding Level of Care Code Acute Green Chain Offbearer for Joseph Manriquez Diagnoses Flor-rectal abscess K61.1
[2022-07-30 06:18] LABS: Glucose Point of Care 107 mg/dL (70-110)
[2022-07-30 08:00] VITALS: BP 109/66; PULSE 91; RESP 16; TEMP 37.2; O2SAT 90
--- NOTE | 2022-07-30 08:03 | PC.NURSE ---
Fistula to left forearm, bruit ascultated and thrill palpated.
--- NOTE | 2022-07-30 08:13 | PM.PN ---
Subjective Subjective: Patient states improvement in his gluteal pain. Wound is now spontaneously draining. Endorses subjective fevers overnight. Reports good appetite. Denies nausea, emesis, chest pain or shortness of breath. Spouse is bedside and updated on plan of care. Medications: Reviewed: Yes Vitals/I&O/Wt Last Vital Signs Temp 98.1 F 07/30/22 04:00 Pulse 87 07/30/22 04:00 Resp 16 07/30/22 04:00 BP 124/60 07/30/22 04:00 Pulse Ox 90 07/30/22 04:00 O2 Del Method 07/29/22 16:51 07/29/22 07/30/22 07/30/22 22:59 06:59 14:59 Intake Total 1480 / 1480 50 / 1530 Output Total 400 / 401 Balance 1479 / 1479 -350 / 1129 Weight last 48 hrs Weight 89.222 kg Weight 82.1 kg Weight 82.1 kg Physical Exam Narrative: General: Patient is awake. Alert. Head: Normocephalic. Atraumatic. EOMI. Neck: No JVD. Cardiovascular: No gallops. No murmurs. Lower extremity edema bilaterally similar to prior exam. Lungs: Clear to auscultation, no use of accessory muscles, no crackles or wheezes. Skin: No jaundice. No rashes. Abdomen: Normal bowel sounds, abdomen soft and nontender. Genito Urinary: Genital exam not performed since complaints not related. Rectal: Left gluteal cleft abscess is draining. Extremities: No cyanosis or clubbing. Musculoskeletal: No swollen or erythematous joints. Neurological: Moves all 4 extremities. No myoclonus. Data 07/30/22 04:31 07/30/22 04:31 Micro: Microbiology 07/29/22 13:24 Blood Culture - Preliminary Blood SPECIMEN COLLECTED 07/29/22 13:18 Blood Culture - Preliminary Blood SPECIMEN COLLECTED A&P Assessment and plan (1) Flor-rectal abscess: General surgery following, anticipating surgical intervention on 07/31 NPO after midnight Continue Zosyn (07/29-p) Wound care Multimodal pain control (2) Acute metabolic encephalopathy: Mentation is improving Secondary to infection Treat underlying infection Frequent reorientation as needed Encourage family participation in care, spouse is bedside (3) ESRD on dialysis: Will need nephro consult if he stays through weekend, will plan on 07/31 Continue Sevelamer Continue Na bicarb Continue midodrine Renally dose medications Avoid nephrotoxins (4) Anxiety: Continue Wellbutrin (5) Depression: Continue Celexa (6) Gout: Continue allopurinol (7) BPH (benign prostatic hyperplasia): Continue Flomax Plan DVT ppx: SCD Code status: Full Code Attestations Medical Necessity Statement*: Patient requires ongoing hospitalization for surgical intervention on 07/31, IV antibiotics, wound care, and supportive care with expected hospitalization now expected to cross 2 midnights. Coding Level of Care Code Acute Measurement Specialist for Chg Fwd Diagnoses Flor-rectal abscess K61.1 Acute metabolic encephalopathy G93.41 ESRD on dialysis N18.6; Z99.2 Anxiety F41.9 Depression F32.A Gout M10.9 BPH (benign prostatic hyperplasia) N40.0
[2022-07-30] MEDS: tamsulosin 0.4 mg Capsule PO (09:09)
[2022-07-30] MEDS: tolterodine 2 mg Tablet PO (09:09)
[2022-07-30] MEDS: allopurinol 100 mg Tablet 200 MG PO (09:09)
[2022-07-30] MEDS: oxybutynin 5 mg Tablet PO ×3 (09:09→21:07)
[2022-07-30] MEDS: pantoprazole DR 40 mg Tablet PO (09:09)
[2022-07-30] MEDS: aspirin 81 mg EC Tablet PO (09:09)
[2022-07-30] MEDS: sodium bicarbonate 650 mg Tablet PO ×3 (09:09→21:07)
[2022-07-30] MEDS: midodrine 5 mg TABLET PO ×3 (09:09→21:07)
[2022-07-30] MEDS: citalopram 20 mg Tablet PO (09:10)
[2022-07-30] MEDS: sevelamer 800 mg Tablet PO ×3 (09:13→17:38)
[2022-07-30] MEDS: buPROPion XL (24 HR) 150 mg Tablet PO (09:13)
[2022-07-30] MEDS: insulin lispro 100 unit/1 mL SUBCUT ×3 (11:15→21:07)
[2022-07-30 11:18] VITALS: BP 115/66; PULSE 89; RESP 16; TEMP 36.8; O2SAT 91
[2022-07-30 11:18] LABS: Glucose Point of Care 379 mg/dL (70-110)
[2022-07-30 15:25] VITALS: BP 121/69; PULSE 86; RESP 16; TEMP 36.4; O2SAT 93
[2022-07-30 17:00] LABS: Glucose Point of Care 266 mg/dL (70-110)
[2022-07-30] MEDS: atorvastatin 40 mg Tablet PO (17:38)
[2022-07-30 20:00] VITALS: BP 121/61; PULSE 85; RESP 17; TEMP 37.4; O2SAT 91
[2022-07-30 20:34] LABS: Glucose Point of Care 301 mg/dL (70-110)
[2022-07-30] MEDS: insulin glargine 100 units/1 mL 16 UNIT SUBCUT (21:07)
--- NOTE | 2022-07-30 21:22 | PC.NURSE ---
Perirectal abcess is draining rodriguez colored drainage with a slight odor to it. Wound is open to air and patient is wearing briefs that are being changed as needed.
[2022-07-31] VITALS (10 sets, daily range): BP systolic 104–145; BP diastolic 55–74; PULSE 63–82; RESP 16–18; TEMP 36.1–36.9; O2SAT 87–96
[2022-07-31] MEDS: piperacillin-tazobactam 3.375 GM in sodium chloride 0.9% (plus) 50 ML IV ×2 (00:28→14:01)
[2022-07-31 05:36] LABS: Basophils % 0.7 %; Eosinophils # 0.2 10^3/uL (0.0-0.8); Eosinophils % 3.8 %; Hematocrit 30.3 % (42.0-52.0); Hemoglobin 9.5 g/dL (11.7-16.6); Lymphocytes # 0.7 10^3/uL (0.8-4.8); Lymphocytes % 13.1 %; Mean Corpuscular HGB Conc 31.4 g/dL (30.0-36.0); Mean Corpuscular Hemoglobin 31.3 pg (28.0-34.0); Mean Corpuscular Volume 99.7 fl (80-94); Mean Platelet Volume 10.3 fL (7.4-10.4); Monocytes # 0.8 10^3/uL (0.2-0.9); Neutrophils # 3.73 10^3/uL (1.8-7.7); Nucleated Red Blood Cells % 0 %; Platelet Count 145 10^3/cmm (130-400); Red Blood Count 3.04 10^6/uL (4.1-5.3); Red Cell Distribution Width 14.5 % (12.1-15.1); White Blood Count 5.5 10^3/uL (4.0-10.0)
[2022-07-31 05:56] LABS: Albumin Level 3.4 g/dL (3.5-5.2); Anion Gap 14.8 (5-19); Blood Urea Nitrogen 44 mg/dL (8-23); Calcium 9.6 mg/dL (8.5-10.5); Carbon Dioxide 26 mmol/L (22-29); Chloride 93 mmol/L (98-107); Glucose 54 mg/dL (65-115); Potassium 3.8 mmol/L (3.5-5.1); Sodium 130 mmol/L (136-145)
[2022-07-31 06:21] LABS: Glucose Point of Care 138 mg/dL (70-110)
[2022-07-31 06:42] LABS: Glucose Point of Care 118 mg/dL (70-110)
--- NOTE | 2022-07-31 07:58 | W.PM.OPSUD ---
Surgery/Procedure H&P Update DATE OF PROCEDURE: July 31, 2022 DATE H&P PERFORMED: 09/16/21 PREOP DIAGNOSIS: PERIRECTAL ASCESS PLANNED PROCEDURE: Operation Date: 07/31/22 08:10 Proposed Procedures p Incision And Drainage(Not Applicable) - Edvin Nelson DO
--- NOTE | 2022-07-31 08:01 | ANES.PREANE2 ---
Pre-Anesthetic Assessment Height/Weight: Height 1.7 m Weight 88.541 kg Temp Pulse Resp BP Pulse Ox O2 Del Method 97.1 F L 72 16 139/68 93 07/31/22 07:31 07/31/22 07:31 07/31/22 07:31 07/31/22 07:31 07/31/22 07:31 07/31/22 07:31 Preop Diagnosis: PERIRECTAL ASCESS Operation Date: 07/31/22 08:10 Proposed Procedures p Incision And Drainage(Not Applicable) - Edvin Nelson DO Familial anesthetic complications: none Was Beta Delia taken within 24 hours: N/A Was Clonidine taken within 24 hours: N/A Last intake: Intake Last Liquid Date 07/30/22 Last Liquid Time 22:00 Last Solid Date 07/30/22 Last Solid Time 20:00 Social No alcohol and No tobacco (h/o smoking) Exam alert, oriented x 3, clear to auscultation bilaterally and regular rate & rhythm Airway Submandibular: within normal limits Cervical ROM: within normal limits Mallampati: Class II Dentition: full Pulmonary Chronic Obstructive Pulmonary Disease CV/HEM Anemia and Hypertension Chronic Renal Failure GI Gastroesophageal Reflux Disease Metabolic Diabetes Mellitus, Hyperlipidemia and Morbid Obesity Neuropsych Anxiety and Depression Anesthetic Plan ASA status: 3 Anesthesia: Choice Medications/Allergies Home Medications Medication Instructions Recorded Confirmed Last Taken Type allopurinol 100 mg tablet 200 mg PO DAILY 08/12/21 07/29/22 07/29/22 History ascorbic acid (vitamin C) 500 mg 1,000 mg PO BID 08/12/21 07/29/22 07/29/22 History tablet aspirin 81 mg tablet,delayed 81 mg PO DAILY 08/12/21 07/29/22 07/29/22 History release cholecalciferol (vitamin D3) 50 50 mcg PO QPM 08/12/21 07/29/22 07/29/22 History mcg (2,000 unit) capsule citalopram 40 mg tablet 20 mg PO DAILY 08/12/21 07/29/22 07/29/22 History colchicine 0.6 mg tablet (Colcrys) See Rx Instructions .Route .COMPLEX 08/12/21 07/29/22 07/29/22 History insulin glargine 100 unit/mL (3 16 unit SUBCUT BEDTIME 08/12/21 07/29/22 07/28/22 History mL) subcutaneous pen (Lantus Solostar U-100 Insulin) [id number]-[id number]-[id number] 3 cap PO TID 08/12/21 07/29/22 07/29/22 History 12,000-38,000-60,000 unit capsule,delayed rel (Creon) midodrine 5 mg tablet 5 mg PO TID 08/12/21 07/29/22 07/29/22 History omega 4-ejr-por-fish oil 1,000 mg 1 cap PO BID 08/12/21 07/29/22 07/29/22 History (120 mg-180 mg) capsule (Fish Oil) omeprazole 20 mg capsule,delayed 20 mg PO DAILY 08/12/21 07/29/22 07/29/22 History release simvastatin 80 mg tablet 40 mg PO QPM 08/12/21 07/29/22 07/29/22 History tamsulosin 0.4 mg capsule 0.4 mg PO DAILY 08/12/21 07/29/22 07/29/22 History tolterodine 2 mg tablet (Detrol) 2 mg PO DAILY 08/12/21 07/29/22 07/29/22 History bupropion HCl 150 mg 24 hr tablet, 150 mg PO QAM 01/03/22 07/29/22 07/29/22 History extended release insulin lispro 100 unit/mL See Rx Instructions .Route .COMPLEX 01/03/22 07/29/22 07/29/22 History subcutaneous pen (Humalog KwikPen (U-100) Insulin) oxybutynin chloride 5 mg tablet 5 mg PO TID 01/03/22 07/29/22 07/29/22 History vitamin B comp no.3-folic acid 1 1 tab PO DAILY 01/03/22 07/29/22 07/29/22 History mg-vit C 60 mg-biotin 300 mcg tablet sevelamer HCl 800 mg tablet 800 mg PO TID 06/14/22 07/29/22 07/29/22 History sodium bicarbonate 650 mg tablet 650 mg PO TID 06/14/22 07/29/22 07/29/22 History multivitamin (Daily-Oliva tablet) 1 tab PO QAM 07/07/22 07/29/22 07/29/22 History Allergies Allergy/AdvReac Type Severity Reaction Status Date / Time No Known Allergies Allergy Verified 07/29/22 15:22 Current Medications Generic Name Dose Route Start Last Admin Trade Name Peewee GILL Reason Stop Dose Admin Allopurinol 200 mg 07/30/22 09:00 07/30/22 09:09 Allopurinol 100 Mg Tablet PO 200 mg DAILY CONTRERAS Administration Aspirin 81 mg 07/30/22 09:00 07/30/22 09:09 Aspirin 81 Mg Ec Tablet PO 81 mg DAILY CONTRERAS Administration Atorvastatin Calcium 40 mg 07/29/22 18:00 07/30/22 17:38 Atorvastatin 40 Mg Tablet PO 40 mg QPM CONTRERAS Administration Bupropion HCl 150 mg 07/30/22 06:00 07/30/22 09:13 Bupropion Xl (24 Hr) 150 Mg Tablet PO 150 mg QAM CONTRERAS Administration Citalopram Hydrobromide 20 mg 07/30/22 09:00 07/30/22 09:10 Citalopram 20 Mg Tablet PO 20 mg DAILY CONTRERAS Administration Insulin Glargine 16 unit 07/29/22 21:00 07/30/22 21:07 Insulin Glargine 100 Units/1 Ml SUBCUT 16 unit BEDTIME CONTRERAS Administration Insulin Human Lispro 0 unit 07/29/22 18:00 07/31/22 07:20 Insulin Lispro 100 Unit/1 Ml SUBCUT Not Given WM&BEDTIME CONTRERAS Protocol Midodrine 5 mg 07/29/22 21:00 07/30/22 21:07 Midodrine 5 Mg Tablet PO 5 mg TID CONTRERAS Administration Non-Formulary Medication 3 cap 07/29/22 21:00 07/30/22 17:40 Ckbbgo-Ruxymrhy-Mkqplaa [Creon] PO 3 cap TID CONTRERAS Administration Oxybutynin Chloride 5 mg 07/29/22 21:00 07/30/22 21:07 Oxybutynin 5 Mg Tablet PO 5 mg TID CONTRERAS Administration Pantoprazole Sodium 40 mg 07/30/22 09:00 07/30/22 09:[address] 40 Mg Tablet PO 40 mg DAILY CONTRERAS Administration Sevelamer Carbonate 800 mg 07/29/22 17:30 07/30/22 17:38 Sevelamer 800 Mg Tablet PO 800 mg AC CONTRERAS Administration Sodium Bicarbonate 650 mg 07/29/22 21:00 07/30/22 21:07 Sodium Bicarbonate 650 Mg Tablet PO 650 mg TID CONTRERAS Administration Tamsulosin HCl 0.4 mg 07/30/22 09:00 07/30/22 09:09 Tamsulosin 0.4 Mg Capsule PO 0.4 mg DAILY CONTRERAS Administration Tolterodine Tartrate 2 mg 07/30/22 09:00 07/30/22 09:09 Tolterodine 2 Mg Tablet PO 2 mg DAILY CONTRERAS Administration [facility] Anesthesia Medical History Diabetes mellitus ESRD (end stage renal disease) GERD (gastroesophageal reflux disease) History of bladder cancer History of colon polyps History of stroke 2009 Surgical History History of appendectomy History of cholecystectomy History of colonoscopy History of kidney removal left side Family History Other CAD (coronary artery disease) Cancer Chronic kidney disease (CKD) Diabetes Lung disease Social History Smoking and tobacco status: former smoker Alcohol intake: never Substance/Drug Use: never Data Anesthesia 07/31/22 04:35 07/31/22 04:35 Short CBC 07/29/22 07/30/22 07/31/22 Range/Units 12:34 04:31 04:35 WBC 11.9 H 8.0 5.5 (4.0-10.0) 10^3/uL Hgb 10.3 L 9.1 L 9.5 L (11.7-16.6) g/dL Hct 32.4 L 28.7 L 30.3 L (42.0-52.0) % MCV 97.0 H 98.6 H 99.7 H (80-94) fl Plt Count 174 145 145 (130-400) 10^3/cmm Neut % (Auto) 83.1 80.2 68.0 % Neut # (Auto) 9.86 H 6.43 3.73 (1.8-7.7) 10^3/uL BMP 07/29/22 07/30/22 07/31/22 12:34 04:31 04:35 Sodium 140 132 L 130 L Potassium 3.6 3.8 3.8 Chloride 93 L 94 L 93 L Carbon Dioxide 37 H 30 H 26 BUN 16 25 H 44 H Creatinine 3.0 H 4.3 H 5.8 H* Glucose 77 72 54 L Calcium 10.0 9.2 9.6 Liver Function 07/29/22 07/31/22 Range/Units 12:34 04:35 Total Bilirubin 0.7 (0.15-1.2) mg/dL AST 12 (0-40) U/L ALT 14 (0-41) U/L Alkaline Phosphatase 91 (40-130) U/L Albumin 4.5 3.4 L (3.5-5.2) g/dL Urine 07/29/22 Range/Units 15:56 Urine Color Yellow (Yellow) Urine Appearance Clear (CLEAR) Urine pH 9 H (5-7) Ur Specific [place] 1.010 (1.005-1.030) Urine Protein 1+ H (Negative) Urine Glucose (UA) 1+ H (Normal) Urine Ketones 1+ H (Negative) Urine Nitrate Negative (Negative) Urine Bilirubin Neg (Negative) Ur Leukocyte Esterase Negative (Negative) Urine RBC 0-4 H (0-2) /hpf Urine WBC 10-15 H (0-5) /hpf Microbiology 07/29/22 13:24 Blood Culture - Preliminary Blood NEGATIVE TO DATE 07/29/22 13:18 Blood Culture - Preliminary Blood NEGATIVE TO DATE Cardiac Studies: No Data to Display
--- NOTE | 2022-07-31 08:02 | P.PN_ITS ---
Subjective Subjective: Patient reports he feels better. Endorses being NPO for I&D of abscess today. Reports continued drainage from gluteal abscess site. Denies fevers, chills, chest pain or shortness of breath. Medications: Reviewed: Yes Vitals/I&O/Wt Last Vital Signs Temp 97.1 F L 07/31/22 07:31 Pulse 72 07/31/22 07:31 Resp 16 07/31/22 07:31 BP 139/68 07/31/22 07:31 Pulse Ox 93 07/31/22 07:31 O2 Del Method 07/31/22 07:31 07/30/22 07/31/22 07/31/22 22:59 06:59 14:59 Intake Total 530 / 1180 50 / 1230 Output Total 950 / 950 Balance 530 / 1180 -900 / 280 Weight last 48 hrs Weight 88.541 kg Weight 89.222 kg Weight 82.1 kg Weight 82.1 kg Physical Exam Narrative: General: Patient is awake and alert. Pleasant. Head: Normocephalic. Atraumatic. EOMI. Neck: No JVD. Cardiovascular: No gallops. No murmurs. 1+ lower extremity edema bilaterally. Lungs: Clear to auscultation, no use of accessory muscles, no crackles or wheezes. Skin: No jaundice. No rashes. Abdomen: Normal bowel sounds, abdomen soft and nontender. Genito Urinary: Genital exam not performed since complaints not related. Rectal: Left gluteal cleft abscess present. Extremities: No cyanosis or clubbing. Musculoskeletal: No swollen or erythematous joints. Neurological: Moves all 4 extremities. No myoclonus. Data 07/31/22 04:35 07/31/22 04:35 Micro: Microbiology 07/29/22 13:24 Blood Culture - Preliminary Blood NEGATIVE TO DATE 07/29/22 13:18 Blood Culture - Preliminary Blood NEGATIVE TO DATE A&P Assessment and plan (1) Flor-rectal abscess: General surgery following Plan for I&D 07/31 NPO for procedure Continue Zosyn (07/29-p) Wound care, will likely need home health for ongoing wound care ([facility]) Multimodal pain control (2) Acute metabolic encephalopathy: Mentation appears to be close to baseline Secondary to infection Treat underlying infection Frequent reorientation as needed Encourage family participation in care (3) ESRD on dialysis: Usual HD scheduled is MWF Continue Sevelamer Continue Na bicarb Continue midodrine Renally dose medications Avoid nephrotoxins Nephrology consulted (4) Anxiety: Continue Wellbutrin (5) Depression: Continue Celexa (6) Gout: Continue allopurinol (7) BPH (benign prostatic hyperplasia): Continue Flomax Plan DVT ppx: SCD Code status: Full Code Attestations Medical Necessity Statement*: Patient requires ongoing hospitalization for surgical intervention on 07/31, IV antibiotics, wound care, dialysis, and supportive care. Coding Level of Care Code Acute Academic Coordinator for Chg Fwd Diagnoses Flor-rectal abscess K61.1 Acute metabolic encephalopathy G93.41 ESRD on dialysis N18.6; Z99.2 Anxiety F41.9 Depression F32.A Gout M10.9 BPH (benign prostatic hyperplasia) N40.0
--- NOTE | 2022-07-31 08:27 | PM.OP ---
Operative Report Date of procedure: July 31, 2022 Pre-op diagnosis: Preop Diagnosis PERIRECTAL ASCESS Post-op diagnosis: same Procedure done: Incision and drainage of perirectal abscess Specimens removed/disposition: Cultures Surgeon: Dr. Edvin Nelson DO Anesthesia: MAC Estimated blood loss (mL): 5 Complications: None apparent Brief History: This is a very pleasant 72-year-old gentleman who came in with a perirectal abscess. Incision and drainage was indicated. The risks and benefits were explained and documented. Procedure: The buttocks was inspected prepped and draped in usual sterile fashion. A timeout was performed all present were in agreement. 1% lidocaine with epinephrine was used to anesthetize the area of induration over the left buttocks. A 10 blade scalpel was then used to make a 1.5 cm incision. Minimal purulence was expelled. Abscess cavities were probed with hemostats. Cultures were taken. The wound was then irrigated with normal saline. Wound was packed with half-inch iodoform. Sterile dressing was applied. Patient tolerated procedure well.
--- NOTE | 2022-07-31 08:39 | ANE.PACU2 ---
Inpatient post-anesthesia follow up: Airway intact: Yes Vital signs: Temperature 97.0 F Pulse Rate 72 Respiratory Rate 16 Blood Pressure 104/56 Pulse Oximetry 88 Oxygen Delivery Me thod Room Air Oxygen Flow Rate Fraction of Inspir ed Oxygen Hydration adequate: Yes Nausea and vomiting: No Pain level: 3 Additional Comments: sedate
[2022-07-31] MEDS: sodium chloride 0.9% 1,000 ML 100 ML IV ×2 (09:33→17:25)
[2022-07-31] MEDS: sevelamer 800 mg Tablet PO ×2 (09:51→17:22)
[2022-07-31 11:58] LABS: Glucose Point of Care 350 mg/dL (70-110)
[2022-07-31] MEDS: insulin lispro 100 unit/1 mL SUBCUT ×3 (12:54→21:21)
[2022-07-31] MEDS: sodium bicarbonate 650 mg Tablet PO ×2 (14:59→21:22)
[2022-07-31] MEDS: oxybutynin 5 mg Tablet PO ×2 (14:59→21:22)
[2022-07-31] MEDS: midodrine 5 mg TABLET PO ×2 (14:59→21:22)
[2022-07-31 17:06] LABS: Glucose Point of Care 372 mg/dL (70-110)
[2022-07-31] MEDS: atorvastatin 40 mg Tablet PO (17:22)
[2022-07-31 20:58] LABS: Glucose Point of Care 286 mg/dL (70-110)
--- NOTE | 2022-07-31 21:13 | PM.CONSULT ---
Providers/Reason For Consult Consulting Physician/Specialty*: CECILIA KLINE /NEPHROLOGY Reason for Consult*: ESRD Requesting Physician: ER Attending Physician: Red Granados MD Primary Care Provider: Annmarie Jacobson MD History of Present Illness History of Present Illness Patient is a 72-year-old male with past medical history of hypertension, diabetes, gastroesophageal reflux disease, bladder cancer, prior CVA, end-stage renal disease on hemodialysis per Monday schedule as outpatient presented to the emergency department complaining of fever and pain in the gluteal area for about 3 days. In the emergency department CT scan has revealed a left-sided perianal abscess. General surgery has seen patient and he underwent I&D. Patient having his last dialysis on Monday. Currently he is on room air and denies any complaints. Review of Systems Narrative: 12 POINT ROS NEGATIVE Medications/Allergies Home Medications Medication Instructions Recorded Confirmed Last Taken Type allopurinol 100 mg tablet 200 mg PO DAILY 08/12/21 07/29/22 07/29/22 History ascorbic acid (vitamin C) 500 mg 1,000 mg PO BID 08/12/21 07/29/22 07/29/22 History tablet aspirin 81 mg tablet,delayed 81 mg PO DAILY 08/12/21 07/29/22 07/29/22 History release cholecalciferol (vitamin D3) 50 50 mcg PO QPM 08/12/21 07/29/22 07/29/22 History mcg (2,000 unit) capsule citalopram 40 mg tablet 20 mg PO DAILY 08/12/21 07/29/22 07/29/22 History colchicine 0.6 mg tablet (Colcrys) See Rx Instructions .Route .COMPLEX 08/12/21 07/29/22 07/29/22 History insulin glargine 100 unit/mL (3 16 unit SUBCUT BEDTIME 08/12/21 07/29/22 07/28/22 History mL) subcutaneous pen (Lantus Solostar U-100 Insulin) jkdwwl-uhnbkrsx-bjwhuxl 3 cap PO TID 08/12/21 07/29/22 07/29/22 History 12,000-38,000-60,000 unit capsule,delayed rel (Creon) midodrine 5 mg tablet 5 mg PO TID 08/12/21 07/29/22 07/29/22 History omega 3-esu-knm-fish oil 1,000 mg 1 cap PO BID 08/12/21 07/29/22 07/29/22 History (120 mg-180 mg) capsule (Fish Oil) omeprazole 20 mg capsule,delayed 20 mg PO DAILY 08/12/21 07/29/22 07/29/22 History release simvastatin 80 mg tablet 40 mg PO QPM 08/12/21 07/29/22 07/29/22 History tamsulosin 0.4 mg capsule 0.4 mg PO DAILY 08/12/21 07/29/22 07/29/22 History tolterodine 2 mg tablet (Detrol) 2 mg PO DAILY 08/12/21 07/29/22 07/29/22 History bupropion HCl 150 mg 24 hr tablet, 150 mg PO QAM 01/03/22 07/29/22 07/29/22 History extended release insulin lispro 100 unit/mL See Rx Instructions .Route .COMPLEX 01/03/22 07/29/22 07/29/22 History subcutaneous pen (Humalog KwikPen (U-100) Insulin) oxybutynin chloride 5 mg tablet 5 mg PO TID 01/03/22 07/29/22 07/29/22 History vitamin B comp no.3-folic acid 1 1 tab PO DAILY 01/03/22 07/29/22 07/29/22 History mg-vit C 60 mg-biotin 300 mcg tablet sevelamer HCl 800 mg tablet 800 mg PO TID 06/14/22 07/29/22 07/29/22 History sodium bicarbonate 650 mg tablet 650 mg PO TID 06/14/22 07/29/22 07/29/22 History multivitamin (Daily-Oliva tablet) 1 tab PO QAM 07/07/22 07/29/22 07/29/22 History Allergies Allergy/AdvReac Type Severity Reaction Status Date / Time No Known Allergies Allergy Verified 07/29/22 15:22 Current Medications Generic Name Dose Route Start Last Admin Trade Name Peewee PRN Reason Stop Dose Admin Allopurinol 200 mg 07/30/22 09:00 07/30/22 09:09 Allopurinol 100 Mg Tablet PO 200 mg DAILY CONTRERAS Administration Aspirin 81 mg 07/30/22 09:00 07/30/22 09:09 Aspirin 81 Mg Ec Tablet PO 81 mg DAILY CONTRERAS Administration Atorvastatin Calcium 40 mg 07/29/22 18:00 07/31/22 17:22 Atorvastatin 40 Mg Tablet PO 40 mg QPM CONTRERAS Administration Bupropion HCl 150 mg 07/30/22 06:00 07/30/22 09:13 Bupropion Xl (24 Hr) 150 Mg Tablet PO 150 mg QAM CONTRERAS Administration Citalopram Hydrobromide 20 mg 07/30/22 09:00 07/30/22 09:10 Citalopram 20 Mg Tablet PO 20 mg DAILY CONTRERAS Administration Sodium Chloride 1,000 mls @ 100 mls/hr 07/31/22 08:00 07/31/22 17:25 Sodium Chloride 0.9% IV 08/01/22 07:59 100 mls/hr .Q10H CONTRERAS Administration Sodium Chloride 1,000 mls @ 30 mls/hr 07/31/22 08:00 07/31/22 09:06 Sodium Chloride 0.9% IV 08/01/22 07:59 Not Given .Q24H CONTRERAS Piperacillin Sod/Tazobactam 50 mls @ 12.5 mls/hr 07/31/22 13:30 07/31/22 14:02 Sod 3.375 gm/ Sodium Chloride IV Not Given Q12H CONTRERAS Insulin Glargine 16 unit 07/29/22 21:00 07/30/22 21:07 Insulin Glargine 100 Units/1 Ml SUBCUT 16 unit BEDTIME CONTRERAS Administration Insulin Human Lispro 0 unit 07/29/22 18:00 07/31/22 17:23 Insulin Lispro 100 Unit/1 Ml SUBCUT 14 unit WM&BEDTIME CONTRERAS Administration Protocol Midodrine 5 mg 07/29/22 21:00 07/31/22 14:59 Midodrine 5 Mg Tablet PO 5 mg TID CONTRERAS Administration Non-Formulary Medication 3 cap 07/31/22 18:00 07/31/22 17:25 Dryjox-Itowmesq-Caglbkm [Creon] PO Not Given TIDWM CONTRERAS Oxybutynin Chloride 5 mg 07/29/22 21:00 07/31/22 14:59 Oxybutynin 5 Mg Tablet PO 5 mg TID CONTRERAS Administration Pantoprazole Sodium 40 mg 07/30/22 09:00 07/30/22 09:[address] 40 Mg Tablet PO 40 mg DAILY CONTRERAS Administration Sevelamer Carbonate 800 mg 07/29/22 17:30 07/31/22 17:22 Sevelamer 800 Mg Tablet PO 800 mg AC CONTRERAS Administration Sodium Bicarbonate 650 mg 07/29/22 21:00 07/31/22 14:59 Sodium Bicarbonate 650 Mg Tablet PO 650 mg TID CONTRERAS Administration Tamsulosin HCl 0.4 mg 07/30/22 09:00 07/30/22 09:09 Tamsulosin 0.4 Mg Capsule PO 0.4 mg DAILY CONTRERAS Administration Tolterodine Tartrate 2 mg 07/30/22 09:00 07/30/22 09:09 Tolterodine 2 Mg Tablet PO 2 mg DAILY CONTRERAS Administration PFSH Acute PFSH: Medical History Diabetes mellitus ESRD (end stage renal disease) GERD (gastroesophageal reflux disease) History of bladder cancer History of colon polyps History of stroke 2010 Surgical History History of appendectomy History of cholecystectomy History of colonoscopy History of kidney removal left side Family History Other CAD (coronary artery disease) Cancer Chronic kidney disease (CKD) Diabetes Lung disease Social History Smoking and tobacco status: former smoker Alcohol intake: never Substance/Drug Use: never Vitals/I&O/Wt Last Vital Signs Temp 97.7 F 07/31/22 20:00 Pulse 73 07/31/22 20:00 Resp 17 07/31/22 20:00 BP 119/58 07/31/22 20:00 Pulse Ox 96 07/31/22 20:00 O2 Del Method 07/31/22 12:22 07/31/22 07/31/22 07/31/22 06:59 14:59 22:59 Intake Total 50 / 1230 480 / 480 1316.667 / 1796.667 Output Total 950 / 950 602 / 602 Balance -900 / 280 -122 / -122 1316.667 / 1194.667 Weight last 48 hrs Weight 88.541 kg Weight 89.222 kg Physical Exam Narrative: General: Patient is awake and alert. Pleasant. Head: Normocephalic. Atraumatic. EOMI. Neck: No JVD. Cardiovascular: No gallops. No murmurs. 1+ lower extremity edema bilaterally.- PER REPORT Lungs: Clear to auscultation, no use of accessory muscles, no crackles or wheezes.- PER REPORT Skin: No jaundice. No rashes. . Data 07/31/22 04:35 07/31/22 04:35 Micro: Microbiology 07/31/22 09:13 Gram Stain - Final Other Source A&P Assessment and plan (1) ESRD on dialysis: Plan 1. End-stage renal disease: On hemodialysis per Monday schedule as outpatient, plan for hemodialysis in a.m. 2. Hypertension: Restart all home medications, blood pressure control 3. Gluteal abscess: Status post I&D by general surgery 4. Anemia: Continue to monitor hemoglobin, transfuse if hemoglobin less than 7 Patient evaluated using audiovisual cart. Time spent 35 minutes Consult Attestations Medical Necessity Statement: NEEDS INPT STAY Coding Level of Care Code Acute Calender Machine Operator for Manfredg Fwd Diagnoses ESRD on dialysis N18.6; Z99.2
[2022-07-31] MEDS: insulin glargine 100 units/1 mL 16 UNIT SUBCUT (21:22)
[2022-08-01] VITALS (9 sets, daily range): BP systolic 125–161; BP diastolic 57–79; PULSE 64–81; RESP 16–18; TEMP 36.4–37.1; O2SAT 94–97
[2022-08-01] MEDS: piperacillin-tazobactam 3.375 GM in sodium chloride 0.9% (plus) 50 ML IV ×2 (01:52→13:10)
[2022-08-01] MEDS: sodium chloride 0.9% 1,000 ML 100 ML IV (05:53)
[2022-08-01] MEDS: buPROPion XL (24 HR) 150 mg Tablet PO (05:55)
[2022-08-01] MEDS: sevelamer 800 mg Tablet PO ×3 (05:56→17:15)
[2022-08-01 06:34] LABS: Glucose Point of Care 63 mg/dL (70-110)
[2022-08-01 08:22] LABS: Glucose Point of Care 124 mg/dL (70-110)
[2022-08-01 08:52] LABS: Basophils # 0.1 10^3/uL (0.0-0.1); Basophils % 0.9 %; Eosinophils # 0.3 10^3/uL (0.0-0.8); Eosinophils % 4.2 %; Hematocrit 30.6 % (42.0-52.0); Hemoglobin 9.8 g/dL (11.7-16.6); Lymphocytes % 15.1 %; Mean Corpuscular Hemoglobin 30.8 pg (28.0-34.0); Mean Corpuscular Volume 96.2 fl (80-94); Mean Platelet Volume 9.9 fL (7.4-10.4); Monocytes # 0.8 10^3/uL (0.2-0.9); Neutrophils # 4.73 10^3/uL (1.8-7.7); Neutrophils % 68.4 %; Nucleated Red Blood Cells % 0 %; Platelet Count 176 10^3/cmm (130-400); Red Blood Count 3.18 10^6/uL (4.1-5.3); Red Cell Distribution Width 14.4 % (12.1-15.1); White Blood Count 6.9 10^3/uL (4.0-10.0)
[2022-08-01 09:08] LABS: Anion Gap 17.5 (5-19); Blood Urea Nitrogen 50 mg/dL (8-23); Calcium 9.3 mg/dL (8.5-10.5); Carbon Dioxide 22 mmol/L (22-29); Chloride 104 mmol/L (98-107); Glucose 116 mg/dL (65-115); Osmolality Calculated 302 mOsm/kg (285-295); Potassium 4.5 mmol/L (3.5-5.1); Sodium 139 mmol/L (136-145)
[2022-08-01] MEDS: citalopram 20 mg Tablet PO (10:42)
[2022-08-01] MEDS: aspirin 81 mg EC Tablet PO (10:42)
[2022-08-01] MEDS: tolterodine 2 mg Tablet PO (10:42)
[2022-08-01] MEDS: allopurinol 100 mg Tablet 200 MG PO (10:42)
[2022-08-01] MEDS: tamsulosin 0.4 mg Capsule PO (10:43)
[2022-08-01] MEDS: sodium bicarbonate 650 mg Tablet PO ×2 (10:43→21:30)
[2022-08-01] MEDS: pantoprazole DR 40 mg Tablet PO (10:43)
[2022-08-01] MEDS: oxybutynin 5 mg Tablet PO ×2 (10:43→21:30)
[2022-08-01] MEDS: midodrine 5 mg TABLET PO ×2 (10:43→21:30)
--- NOTE | 2022-08-01 10:55 | PC.SOCIAL ---
IMM Update pg 2 of IMM updated and reviewed w/ patient. Copy provided and Copy dated, initialed and placed in chart.
--- NOTE | 2022-08-01 11:06 | PM.PN ---
Subjective Subjective: Patient reports minimal perirectal pain. He is due to have dialysis this more Vitals/I&O/Wt Last Vital Signs Temp 98.1 F 08/01/22 08:00 Pulse 81 08/01/22 08:00 Resp 18 08/01/22 08:00 BP 136/57 08/01/22 08:00 Pulse Ox 96 08/01/22 08:00 O2 Del Method 08/01/22 08:00 07/31/22 08/01/22 08/01/22 22:59 06:59 14:59 Intake Total 2036.667 / 2516.667 938.333 / 3455.000 240 / 240 Output Total 200 / 802 350 / 1152 Balance 1836.667 / 1714.667 588.333 / 2303.000 240 / 240 Weight last 48 hrs Weight 191 lb 9.6 oz Weight 195 lb 3.2 oz Physical Exam Narrative: General: No acute distress, awake alert and oriented x3 Skin: Some amount of induration left of the anus with minimal exudate. Data 08/01/22 08:39 08/01/22 08:39 Micro: Microbiology 07/31/22 09:13 Gram Stain - Final Other Source Wound Culture - Preliminary Gram Negative Rods A&P Assessment and plan (1) Flor-rectal abscess: Plan Postoperative day #1 status post incision and drainage of left perirectal abscess Daily dressing changes with plain packing gauze Complete course of antibiotics as an outpatient Follow-up in my office in 2 weeks Surgically stable for discharge Attestations Medical Necessity Statement*: Further hospitalization per hospitalist Coding Level of Care Code Acute Policy Loan Calculator for Joseph Manriquez Diagnoses Flor-rectal abscess K61.1
--- NOTE | 2022-08-01 11:34 | PM.PN ---
Subjective Subjective: no new complaints Medications: Reviewed: Yes Vitals/I&O/Wt Last Vital Signs Temp 98.1 F 08/01/22 08:00 Pulse 81 08/01/22 08:00 Resp 18 08/01/22 08:00 BP 136/57 08/01/22 08:00 Pulse Ox 96 08/01/22 08:00 O2 Del Method 08/01/22 08:00 07/31/22 08/01/22 08/01/22 22:59 06:59 14:59 Intake Total 2036.667 / 2516.667 938.333 / 3455.000 240 / 240 Output Total 200 / 802 350 / 1152 Balance 1836.667 / 1714.667 588.333 / 2303.000 240 / 240 Weight last 48 hrs Weight 86.908 kg Weight 88.541 kg Physical Exam Const: COMMON NORMALS: no acute distress, alert and well nourished HENMT: COMMON NORMALS: normocephalic and oropharynx normal HEAD & SCALP: normocephalic Eye: COMMON NORMALS: Equal, round and reactive pupils present and EOMs intact bilaterally PUPIL: Yes Equal, round and reactive pupils present Neck/C-Spine: COMMON NORMALS: full ROM Chest: COMMONS NORMALS: normal inspection of the chest Resp: COMMON NORMALS: normal respiratory effort Extremity: COMMON NORMALS: normal to inspection, full ROM and no pedal edema Neuro: SENSORIUM/ORIENTATION: Yes alert Data 08/01/22 08:39 08/01/22 08:39 Micro: Microbiology 07/31/22 09:13 Gram Stain - Final Other Source Wound Culture - Preliminary Gram Negative Rods A&P Assessment and plan (1) ESRD on dialysis: [place] [address] Consult Note Signed Patient: Alonso Delgado MR#: [id number] : 1950 Age/Sex: 72 / M ADM Date: 07/29/22 Loc: [facility]? Room/Bed: [facility] Encounter Date: 07/31/[address]: Red Granados MD Report Number: [id number] Providers/Reason For Consult Consulting Physician/Specialty*:?? CECILIA KLINE /NEPHROLOGY Reason for Consult*:?? ESRD Requesting Physician:?? ER Attending Physician:?? Red Granados MD ? Primary Care Provider:?? Annmarie Jacobson MD ? History of Present Illness History of Present Illness ?Patient is a 72-year-old male with past medical history of hypertension, diabetes, gastroesophageal reflux disease, bladder cancer, prior CVA, end-stage renal disease on hemodialysis per Monday schedule as outpatient presented to the emergency department complaining of fever and pain in the gluteal area for about 3 days.? In the emergency department CT scan has revealed a left-sided perianal abscess.? General surgery has seen patient and he underwent I&D.? Patient having his last dialysis on Monday.? Currently he is on room air and denies any complaints. Review of Systems Narrative:?? 12 POINT ROS NEGATIVE Medications/Allergies Home Medications ?Medication ?Instructions ?Recorded ?Confirmed ?Last Taken ?Type allopurinol 100 mg tablet 200 mg PO DAILY 08/12/21 07/29/22 07/29/22 History ascorbic acid (vitamin C) 500 mg 1,000 mg PO BID 08/12/21 07/29/22 07/29/22 History tablet ? aspirin 81 mg tablet,delayed 81 mg PO DAILY 08/12/21 07/29/22 07/29/22 History release ? cholecalciferol (vitamin D3) 50 50 mcg PO QPM 08/12/21 07/29/22 07/29/22 History mcg (2,000 unit) capsule ? citalopram 40 mg tablet 20 mg PO DAILY 08/12/21 07/29/22 07/29/22 History colchicine 0.6 mg tablet (Colcrys) See Rx Instructions .Route .COMPLEX 08/12/21 07/29/22 07/29/22 History insulin glargine 100 unit/mL (3 16 unit SUBCUT BEDTIME 08/12/21 07/29/22 07/28/22 History mL) subcutaneous pen (Lantus ? Solostar U-100 Insulin) ? theelt-pjopfrwy-lasmjzl 3 cap PO TID 08/12/21 07/29/22 07/29/22 History 12,000-38,000-60,000 unit ? capsule,delayed rel (Creon) ? midodrine 5 mg tablet 5 mg PO TID 08/12/21 07/29/22 07/29/22 History omega 0-zdq-mal-fish oil 1,000 mg 1 cap PO BID 08/12/21 07/29/22 07/29/22 History (120 mg-180 mg) capsule (Fish Oil) ? omeprazole 20 mg capsule,delayed 20 mg PO DAILY 08/12/21 07/29/22 07/29/22 History release ? simvastatin 80 mg tablet 40 mg PO QPM 08/12/21 07/29/22 07/29/22 History tamsulosin 0.4 mg capsule 0.4 mg PO DAILY 08/12/21 07/29/22 07/29/22 History tolterodine 2 mg tablet (Detrol) 2 mg PO DAILY 08/12/21 07/29/22 07/29/22 History bupropion HCl 150 mg 24 hr tablet, 150 mg PO QAM 01/03/22 07/29/22 07/29/22 History extended release ? insulin lispro 100 unit/mL See Rx Instructions .Route .COMPLEX 01/03/22 07/29/22 07/29/22 History subcutaneous pen (Humalog KwikPen ? (U-100) Insulin) ? oxybutynin chloride 5 mg tablet 5 mg PO TID 01/03/22 07/29/22 07/29/22 History vitamin B comp no.3-folic acid 1 1 tab PO DAILY 01/03/22 07/29/22 07/29/22 History mg-vit C 60 mg-biotin 300 mcg ? tablet ? sevelamer HCl 800 mg tablet 800 mg PO TID 06/14/22 07/29/22 07/29/22 History sodium bicarbonate 650 mg tablet 650 mg PO TID 06/14/22 07/29/22 07/29/22 History multivitamin (Daily-Oliva tablet) 1 tab PO QAM 07/07/22 07/29/22 07/29/22 History Allergies Allergy/AdvReac Type Severity Reaction Status Date / Time No Known Allergies Allergy ? ? Verified 07/29/22 15:22 Current Medications Generic Name Dose Route Start Last Admin ? Trade Name Freq? PRN Reason Stop Dose Admin Allopurinol ?200 mg ?07/30/22 09:00 ?07/30/22 09:09 ? Allopurinol 100 Mg Tablet ?PO ? ?200 mg ? ?DAILY CONTRERAS ? ?Administration Aspirin ?81 mg ?07/30/22 09:00 ?07/30/22 09:09 ? Aspirin 81 Mg Ec Tablet ?PO ? ?81 mg ? ?DAILY CONTRERAS ? ?Administration Atorvastatin Calcium ?40 mg ?07/29/22 18:00 ?07/31/22 17:22 ? Atorvastatin 40 Mg Tablet ?PO ? ?40 mg ? ?QPM CONTRERAS ? ?Administration Bupropion HCl ?150 mg ?07/30/22 06:00 ?07/30/22 09:13 ? Bupropion Xl (24 Hr) 150 Mg Tablet ?PO ? ?150 mg ? ?QAM CONTRERAS ? ?Administration Citalopram Hydrobromide ?20 mg ?07/30/22 09:00 ?07/30/22 09:10 ? Citalopram 20 Mg Tablet ?PO ? ?20 mg ? ?DAILY CONTRERAS ? ?Administration Sodium Chloride ?1,000 mls @ 100 mls/hr ?07/31/22 08:00 ?07/31/22 17:25 ? Sodium Chloride 0.9% ?IV ?08/01/22 07:59 ?100 mls/hr ? ?.Q10H CONTRERAS ? ?Administration Sodium Chloride ?1,000 mls @ 30 mls/hr ?07/31/22 08:00 ?07/31/22 09:06 ? Sodium Chloride 0.9% ?IV ?08/01/22 07:59 ?Not Given ? ?.Q24H CONTRERAS ? ? Piperacillin Sod/Tazobactam ?50 mls @ 12.5 mls/hr ?07/31/22 13:30 ?07/31/22 14:02 ? Sod 3.375 gm/ Sodium Chloride ?IV ? ?Not Given ? ?Q12H CONTRERAS ? ? Insulin Glargine ?16 unit ?07/29/22 21:00 ?07/30/22 21:07 ? Insulin Glargine 100 Units/1 Ml ?SUBCUT ? ?16 unit ? ?BEDTIME CONTRERAS ? ?Administration Insulin Human Lispro ?0 unit ?07/29/22 18:00 ?07/31/22 17:23 ? Insulin Lispro 100 Unit/1 Ml ?SUBCUT ? ?14 unit ? ?WM&BEDTIME CONTRERAS ? ?Administration ? ?Protocol ? ? Midodrine ?5 mg ?07/29/22 21:00 ?07/31/22 14:59 ? Midodrine 5 Mg Tablet ?PO ? ?5 mg ? ?TID CONTRERAS ? ?Administration Non-Formulary Medication ?3 cap ?07/31/22 18:00 ?07/31/22 17:25 ? Jsrsfb-Ncnagbzs-Lpfvucc [Creon] ?PO ? ?Not Given ? ?TIDWM CONTRERAS ? ? Oxybutynin Chloride ?5 mg ?07/29/22 21:00 ?07/31/22 14:59 ? Oxybutynin 5 Mg Tablet ?PO ? ?5 mg ? ?TID CONTRERAS ? ?Administration Pantoprazole Sodium ?40 mg ?07/30/22 09:00 ?07/30/22 09:09 ? Pantoprazole Dr 40 Mg Tablet ?PO ? ?40 mg ? ?DAILY CONTRERAS ? ?Administration Sevelamer Carbonate ?800 mg ?07/29/22 17:30 ?07/31/22 17:22 ? Sevelamer 800 Mg Tablet ?PO ? ?800 mg ? ?AC CONTRERAS ? ?Administration Sodium Bicarbonate ?650 mg ?07/29/22 21:00 ?07/31/22 14:59 ? Sodium Bicarbonate 650 Mg Tablet ?PO ? ?650 mg ? ?TID CONTRERAS ? ?Administration Tamsulosin HCl ?0.4 mg ?07/30/22 09:00 ?07/30/22 09:09 ? Tamsulosin 0.4 Mg Capsule ?PO ? ?0.4 mg ? ?DAILY CONTRERAS ? ?Administration Tolterodine Tartrate ?2 mg ?07/30/22 09:00 ?07/30/22 09:09 ? Tolterodine 2 Mg Tablet ?PO ? ?2 mg ? ?DAILY CONTRERSA ? ?Administration PFSH Acute PFSH:?? Medical History? Diabetes mellitus ESRD (end stage renal disease) GERD (gastroesophageal reflux disease) History of bladder cancer History of colon polyps History of stroke 2009 ??Surgical History? History of appendectomy History of cholecystectomy History of colonoscopy History of kidney removal left side ??Family History? Other CAD (coronary artery disease)CancerChronic kidney disease (CKD)DiabetesLung disease ? Social History? Smoking and tobacco status:? former smoker Alcohol intake:? never Substance/Drug Use:? never ? Vitals/I&O/Wt Last Vital Signs Temp ?97.7 F ?07/31/22 20:00 Pulse ?73 ?07/31/22 20:00 Resp ?17 ?07/31/22 20:00 BP ?119/58 ?07/31/22 20:00 Pulse Ox ?96 ?07/31/22 20:00 O2 Del Method ? ?07/31/22 12:22 ? 07/31/22 07/31/22 07/31/22 ? 06:59 14:59 22:59 Intake Total 50 / 1230 480 / 480 1316.667 / 1796.667 Output Total 950 / 950 602 / 602 ? Balance -900 / 280 -122 / -122 1316.667 / 1194.667 Weight last 48 hrs Weight? 88.541 kg ? Weight? 89.222 kg ? Physical Exam Narrative:?? General: Patient is awake and alert.? Pleasant. Head:? Normocephalic. Atraumatic. EOMI. Neck: No JVD. Cardiovascular: No gallops. No murmurs. 1+ lower extremity edema bilaterally.- PER REPORT Lungs: Clear to auscultation, no use of accessory muscles, no crackles or wheezes.- PER REPORT Skin: No jaundice. No rashes. . Data 07/31/22 04:35? 07/31/22 04:35? Micro: Microbiology ?07/31/22 09:13 Gram Stain - Final ?Other Source ? A&P Assessment and plan (1) ESRD on dialysis: Plan 1.? End-stage renal disease: On hemodialysis per Monday schedule as outpatient, plan for hemodialysis today 2.? Hypertension: Restart all home medications, blood pressure control 3.? Gluteal abscess: Status post I&D by general surgery 4.? Anemia: Continue to monitor hemoglobin, transfuse if hemoglobin less than 7 Patient evaluated using audiovisual cart.? 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
[2022-08-01 12:08] LABS: Glucose Point of Care 283 mg/dL (70-110)
[2022-08-01] MEDS: insulin lispro 100 unit/1 mL SUBCUT ×2 (13:09→21:30)
--- NOTE | 2022-08-01 14:12 | P.PN_ITS ---
Subjective Subjective: Patient was seen and examined this morning has been afebrile, overall doing better. Medications: Reviewed: Yes Medication Review Details: Generic Name Dose Route Start Last Admin Trade Name Peewee GILL Reason Stop Dose Admin Allopurinol 200 mg 07/30/22 09:00 08/01/22 10:42 Allopurinol 100 Mg Tablet PO 200 mg DAILY CONTRERAS Administration Aspirin 81 mg 07/30/22 09:00 08/01/22 10:42 Aspirin 81 Mg Ec Tablet PO 81 mg DAILY CONTRERAS Administration Atorvastatin Calci um 40 mg 07/29/22 18:00 07/31/22 17:22 Atorvastatin 40 Mg Tablet PO 40 mg QPM CONTRERAS Administration Bupropion HCl 150 mg 07/30/22 06:00 08/01/22 05:55 Bupropion Xl (24 Hr) 150 Mg Tablet PO 150 mg QAM CONTRERAS Administration Citalopram Hydrobr omide 20 mg 07/30/22 09:00 08/01/22 10:42 Citalopram 20 Mg Tablet PO 20 mg DAILY CONTRERAS Administration Piperacillin Sod/T azobactam 50 mls @ 12.5 mls /hr 07/31/22 13:30 08/01/22 13:10 Sod 3.375 gm/ So dium Chloride IV 12.5 mls/hr Q12H CONTRERAS Administration Insulin Glargine 16 unit 07/29/22 21:00 07/31/22 21:22 Insulin Glargine 100 Units/1 Ml SUBCUT 16 unit BEDTIME CONTRERAS Administration Insulin Human Lisp ro 0 unit 07/29/22 18:00 08/01/22 13:09 Insulin Lispro 1 00 Unit/1 Ml SUBCUT 10 unit WM&BEDTIME CONTRERAS Administration Protocol Midodrine 5 mg 07/29/22 21:00 08/01/22 10:43 Midodrine 5 Mg T ablet PO 5 mg TID CONTRERAS Administration Non-Formulary Medi cation 3 cap 07/31/22 18:00 08/01/22 13:10 Lipase-Protease- Amylase [Creon] PO 3 cap TIDWM CONTRERAS Administration Oxybutynin Chlorid e 5 mg 07/29/22 21:00 08/01/22 10:43 Oxybutynin 5 Mg Tablet PO 5 mg TID CONTRERAS Administration Pantoprazole Sodiu m 40 mg 07/30/22 09:00 08/01/22 10:[address] 40 Mg Tablet PO 40 mg DAILY CONTRERAS Administration Sevelamer Carbonat e 800 mg 07/29/22 17:30 08/01/22 10:51 Sevelamer 800 Mg Tablet PO 800 mg AC CONTRERAS Administration Sodium Bicarbonate 650 mg 07/29/22 21:00 08/01/22 10:43 Sodium Bicarbona te 650 Mg Tablet PO 650 mg TID CONTRERAS Administration Tamsulosin HCl 0.4 mg 07/30/22 09:00 08/01/22 10:43 Tamsulosin 0.4 M g Capsule PO 0.4 mg DAILY CONTRERAS Administration Tolterodine Tartra te 2 mg 07/30/22 09:00 08/01/22 10:42 Tolterodine 2 Mg Tablet PO 2 mg DAILY CONTRERAS Administration Vitals/I&O/Wt Last Vital Signs Temp 97.7 F 08/01/22 12:00 Pulse 73 08/01/22 12:00 Resp 16 08/01/22 12:00 BP 161/71 08/01/22 12:00 Pulse Ox 97 08/01/22 12:00 O2 Del Method 08/01/22 12:00 07/31/22 08/01/22 08/01/22 22:59 06:59 14:59 Intake Total 2036.667 / 2516.667 938.333 / 3455.000 540 / 540 Output Total 200 / 802 350 / 1152 900 / 900 Balance 1836.667 / 1714.667 588.333 / 2303.000 -360 / -360 Weight last 48 hrs Weight 86.908 kg Weight 88.541 kg Physical Exam Resp: COMMON NORMALS: normal respiratory effort, No retractions, No use of accessory muscles and clear to auscultation bilaterally EFFORT & INSPECTION: Yes symmetric chest movement AUSCULTATION: clear to auscultation bilaterally Cardio: COMMON NORMALS: regular rate, regular rhythm, S1 normal heart sound present, S2 normal heart sound present, No gallops present (Cardio), No murmurs present (Cardio), No rub (Cardio) and Peripheral pulses 2+ throughout RATE: regular rate RHYTHM: regular rhythm HEART SOUNDS: S1 normal heart sound present and S2 normal heart sound present PERIPHERAL PULSES: Peripheral pulses 2+ throughout GI: COMMON NORMALS: Normal to inspection, nondistended, normoactive bowel sounds present, Soft to palpation, non-tender, No hepatosplenomegaly present and no masses AUSCULTATION: Yes normoactive bowel sounds PALPATION: Yes Soft to palpation and Yes No hepatosplenomegaly present RECTAL EXAM: Yes deferred Extremity: COMMON NORMALS: no clubbing, cyanosis or edema and no pedal edema Data 08/01/22 08:39 08/01/22 08:39 Micro: Microbiology 07/31/22 09:13 Gram Stain - Final Other Source Anaerobic Culture - Preliminary Wound Culture - Preliminary Gram Negative Rods A&P Assessment and plan (1) Flor-rectal abscess: General surgery following s/p I&D 07/31 On Zosyn (07/29-p) Wound care, will likely need home health for ongoing wound care ([facility] patient) pain control (2) Acute metabolic encephalopathy: Mentation appears to be close to baseline Secondary to infection Treat underlying infection Frequent reorientation as needed Encourage family participation in care (3) ESRD on dialysis: Usual HD scheduled is MWF Continue Sevelamer Continue Na bicarb Continue midodrine Renally dose medications Avoid nephrotoxins Nephrology consulted (4) Anxiety: Continue Wellbutrin (5) Depression: Continue Celexa (6) Gout: Continue allopurinol (7) BPH (benign prostatic hyperplasia): Continue Flomax Plan DVT ppx: SCD Code status: Full Code Attestations Medical Necessity Statement*: Patient is to be in hospital for management of perirectal abscess, need for IV antibiotics. Coding Level of Care Code Acute Developmental Specialist for [facility] Fwd Diagnoses Flor-rectal abscess K61.1 Acute metabolic encephalopathy G93.41 ESRD on dialysis N18.6; Z99.2 Anxiety F41.9 Depression F32.A Gout M10.9 BPH (benign prostatic hyperplasia) N40.0
[2022-08-01] MEDS: atorvastatin 40 mg Tablet PO (17:15)
[2022-08-01 17:22] LABS: Glucose Point of Care 120 mg/dL (70-110)
--- NOTE | 2022-08-01 18:06 | PC.NURSE ---
Patient resting in bed, returned from dialysis, at bedside, VSS during time on floor, dressing changed twice during shift. AAOx4, minimal c/o pain, OOBTC, good UOP, tolerating diet, no new events, no needs at this time. Room clean and clutter free with call light in reach. All questions and concerns addressed throughout shift.
[2022-08-01] MEDS: heparin, porcine 1,000 unit/mL INJ 10 mL HE (18:29)
[2022-08-01 20:25] LABS: Glucose Point of Care 297 mg/dL (70-110)
[2022-08-01] MEDS: insulin glargine 100 units/1 mL 16 UNIT SUBCUT (21:30)
[2022-08-01 21:52] LABS: Hepatitis A Antibody IgM Non-Reactive (Nonreactive); Hepatitis B Core AB, Total Non-Reactive (Nonreactive); Hepatitis B Surface AB 105.4 (11.5-1000); Hepatitis B Surface Antigen Non-Reactive (Nonreactive); Hepatitis C Virus Antibody Non-Reactive (Nonreactive)
[2022-08-02] MEDS: piperacillin-tazobactam 3.375 GM in sodium chloride 0.9% (plus) 50 ML IV (02:25)
[2022-08-02 04:00] VITALS: BP 161/68; PULSE 71; RESP 17; TEMP 36.5; O2SAT 95
[2022-08-02 05:35] LABS: Basophils # 0.1 10^3/uL (0.0-0.1); Basophils % 1.1 %; Eosinophils # 0.2 10^3/uL (0.0-0.8); Eosinophils % 4.2 %; Hematocrit 28.1 % (42.0-52.0); Hemoglobin 8.9 g/dL (11.7-16.6); Lymphocytes # 1.3 10^3/uL (0.8-4.8); Lymphocytes % 23.4 %; Mean Corpuscular HGB Conc 31.7 g/dL (30.0-36.0); Mean Corpuscular Hemoglobin 30.9 pg (28.0-34.0); Mean Corpuscular Volume 97.6 fl (80-94); Mean Platelet Volume 10.2 fL (7.4-10.4); Monocytes # 0.8 10^3/uL (0.2-0.9); Monocytes % 13.7 %; Neutrophils # 3.12 10^3/uL (1.8-7.7); Neutrophils % 57.2 %; Nucleated Red Blood Cells % 0 %; Platelet Count 182 10^3/cmm (130-400); Red Blood Count 2.88 10^6/uL (4.1-5.3); Red Cell Distribution Width 14.2 % (12.1-15.1); White Blood Count 5.5 10^3/uL (4.0-10.0)
[2022-08-02 06:00] VITALS: PULSE 76
[2022-08-02 06:18] LABS: Anion Gap 15.1 (5-19); Blood Urea Nitrogen 31 mg/dL (8-23); Calcium 9.5 mg/dL (8.5-10.5); Carbon Dioxide 26 mmol/L (22-29); Chloride 106 mmol/L (98-107); Glucose 53 mg/dL (65-115); Osmolality Calculated 300 mOsm/kg (285-295); Potassium 4.1 mmol/L (3.5-5.1); Sodium 143 mmol/L (136-145)
[2022-08-02] MEDS: sevelamer 800 mg Tablet PO ×2 (06:22→12:53)
[2022-08-02] MEDS: buPROPion XL (24 HR) 150 mg Tablet PO (06:22)
[2022-08-02 06:33] LABS: Glucose Point of Care 49 mg/dL (70-110)
[2022-08-02 08:00] VITALS: BP 162/96; PULSE 81; RESP 17; TEMP 36.6; O2SAT 99
[2022-08-02] MEDS: tolterodine 2 mg Tablet PO (08:55)
[2022-08-02] MEDS: tamsulosin 0.4 mg Capsule PO (08:56)
[2022-08-02] MEDS: sodium bicarbonate 650 mg Tablet PO (08:56)
[2022-08-02] MEDS: pantoprazole DR 40 mg Tablet PO (08:56)
[2022-08-02] MEDS: aspirin 81 mg EC Tablet PO (08:56)
[2022-08-02] MEDS: allopurinol 100 mg Tablet 200 MG PO (08:56)
[2022-08-02] MEDS: midodrine 5 mg TABLET PO (08:57)
[2022-08-02] MEDS: citalopram 20 mg Tablet PO (08:57)
[2022-08-02] MEDS: oxybutynin 5 mg Tablet PO (08:57)
--- NOTE | 2022-08-02 11:18 | P.DS_ITS ---
Discharge Providers Date of Admission: 07/29/22 15:50 Date of Discharge: August 02, 2022 Attending Provider at Admission: Red Granados MD Attending Provider at Discharge: Rolo Tinoco MD Primary Care Provider: Annmarie Jacobson MD Diagnoses at Discharge Discharge Diagnosis (1) Flor-rectal abscess: Status: Acute (2) Acute metabolic encephalopathy: Status: Acute (3) ESRD on dialysis: Status: Acute (4) Anxiety: Status: Acute (5) Depression: Status: Acute (6) Gout: Status: Acute (7) BPH (benign prostatic hyperplasia): Status: Acute Reason for Visit Reason for Visit: Weakness, bump on rearend Hospital Course Hospital Course Alonso Deglado is a 72 year old male with a past medical history significant for type 2 diabetes mellitus, GERD, bladder cancer, stroke, and ESRD on hemodialysis who presents to the emergency department with fever and gluteal pain x3 days. Admitted for the management of perirectal abscess, underwent incision and drainage, was kept on broad-spectrum antibiotics, wound dressing was done, surgery was on board. He was discharged on p.o. Augmentin for 14 days as well as doxycycline for 10 days, he was continued on routine hemodialysis. Blood culture was negative, wound culture was growing gram-negative rods. Patient responded well to above medical management and was discharged in stable condition to home. Patient will follow surgery as outpatient. Physical Exam Resp: COMMON NORMALS: normal respiratory effort, No retractions, No use of accessory muscles and clear to auscultation bilaterally EFFORT & INSPECTION: Yes symmetric chest movement AUSCULTATION: clear to auscultation bilaterally Cardio: COMMON NORMALS: regular rate, regular rhythm, S1 normal heart sound present, S2 normal heart sound present, No gallops present (Cardio), No murmurs present (Cardio), No rub (Cardio) and Peripheral pulses 2+ throughout RATE: regular rate RHYTHM: regular rhythm HEART SOUNDS: S1 normal heart sound present and S2 normal heart sound present PERIPHERAL PULSES: Peripheral pulses 2+ throughout GI: COMMON NORMALS: Normal to inspection, nondistended, normoactive bowel sounds present, Soft to palpation, non-tender, No hepatosplenomegaly present and no masses AUSCULTATION: Yes normoactive bowel sounds PALPATION: Yes Soft to palpation and Yes No hepatosplenomegaly present RECTAL EXAM: Yes deferred Extremity: COMMON NORMALS: no clubbing, cyanosis or edema and no pedal edema Discharge Data Studies Completed and Pending Completed Studies During Hospitalization Category Date Time Status CT pelvis w con* [id number] Stat Cat Scan 07/29/22 13:25 Completed Pending at discharge Category Date Time Status Anaerobic Culture Routine Lab 07/31/22 09:13 Results BMP [Basic Metabolic Panel] AM LABS Lab 08/03/22 04:00 Ordered BMP [Basic Metabolic Panel] AM LABS Lab 08/04/22 04:00 Ordered Blood Culture Stat Lab 07/29/22 13:24 Results CBC Auto Diff [Complete Blood Count w/Auto] AM LABS Lab 08/03/22 04:00 Ordered CBC Auto Diff [Complete Blood Count w/Auto] AM LABS Lab 08/04/22 04:00 Ordered Wound Culture and Gram Stain Routine Lab 07/31/22 09:13 Results Radiology Impressions Pelvis CT 07/29/22 13:25 IMPRESSION: 1. New LEFT perianal abscess measures 2.3 x 3.6 cm. There is a small tract that does extend to the LEFT lateral anus from the perineum. 2. Foreign body like object in the ascending colon measuring 18 x 3 mm. Was also present on the study of 11/03/2021. If this is a foreign body there is potential for colon perforation. Laboratory Results WBC 5.5 10^3/uL (4.0-10.0) 08/02/22 04:25 RBC 2.88 10^6/uL (4.1-5.3) L 08/02/22 04:25 Hgb 8.9 g/dL (11.7-16.6) L 08/02/22 04:25 Hct 28.1 % (42.0-52.0) L 08/02/22 04:25 MCV 97.6 fl (80-94) H 08/02/22 04:25 MCH 30.9 pg (28.0-34.0) 08/02/22 04:25 MCHC 31.7 g/dL (30.0-36.0) 08/02/22 04:25 RDW 14.2 % (12.1-15.1) 08/02/22 04:25 Plt Count 182 10^3/cmm (130-400) 08/02/22 04:25 MPV 10.2 fL (7.4-10.4) 08/02/22 04:25 Neut % (Auto) 57.2 % 08/02/22 04:25 Lymph % (Auto) 23.4 % 08/02/22 04:25 [place] % (Auto) 13.7 % 08/02/22 04:25 Eos % (Auto) 4.2 % 08/02/22 04:25 Baso % (Auto) 1.1 % 08/02/22 04:25 Neut # (Auto) 3.12 10^3/uL (1.8-7.7) 08/02/22 04:25 Lymph # (Auto) 1.3 10^3/uL (0.8-4.8) 08/02/22 04:25 [place] # (Auto) 0.8 10^3/uL (0.2-0.9) 08/02/22 04:25 Eos # (Auto) 0.2 10^3/uL (0.0-0.8) 08/02/22 04:25 Baso # (Auto) 0.1 10^3/uL (0.0-0.1) 08/02/22 04:25 Nucleated RBC % (auto) 0 % 08/02/22 04:25 Nucleated RBCs # 0.0 /100WBC 08/02/22 04:25 Sodium 143 mmol/L (136-145) 08/02/22 04:25 Potassium 4.1 mmol/L (3.5-5.1) 08/02/22 04:25 Chloride 106 mmol/L (98-107) 08/02/22 04:25 Carbon Dioxide 26 mmol/L (22-29) 08/02/22 04:25 Anion Gap 15.1 (5-19) 08/02/22 04:25 BUN 31 mg/dL (8-23) H 08/02/22 04:25 Creatinine 4.3 mg/dL (0.7-1.2) H 08/02/22 04:25 GFR Calculation Not Reportable 08/02/22 04:25 Glucose 53 mg/dL (65-115) L 08/02/22 04:25 POC Glucose 49 mg/dL (70-110) L 08/02/22 06:30 Calculated Osmolality 300 mOsm/kg (285-295) H 08/02/22 04:25 Lactic Acid 1.6 mmol/L (0.5-2.2) 07/29/22 12:34 Calcium 9.5 mg/dL (8.5-10.5) 08/02/22 04:25 Phosphorus 3.0 mg/dL (2.5-4.5) 07/31/22 04:35 Magnesium 1.7 mg/dL (1.7-2.3) 07/30/22 04:31 Total Bilirubin 0.7 mg/dL (0.15-1.2) 07/29/22 12:34 AST 12 U/L (0-40) 07/29/22 12:34 ALT 14 U/L (0-41) 07/29/22 12:34 Alkaline Phosphatase 91 U/L (40-130) 07/29/22 12:34 Total Protein 7.4 g/dL (6.6-8.7) 07/29/22 12:34 Albumin 3.4 g/dL (3.5-5.2) L 07/31/22 04:35 Globulin 2.9 g/dL (1.3-4.6) 07/29/22 12:34 Urine Color Yellow (Yellow) 07/29/22 15:56 Urine Appearance Clear (CLEAR) 07/29/22 15:56 Urine pH 9 (5-7) H 07/29/22 15:56 Ur Specific [place] 1.010 (1.005-1.030) 07/29/22 15:56 Urine Protein 1+ (Negative) H 07/29/22 15:56 Urine Glucose (UA) 1+ (Normal) H 07/29/22 15:56 Urine Ketones 1+ (Negative) H 07/29/22 15:56 Urine Blood Neg (Negative) 07/29/22 15:56 Urine Nitrate Negative (Negative) 07/29/22 15:56 Urine Bilirubin Neg (Negative) 07/29/22 15:56 Prot Sulfosalicylic Acd Positive (Negative) 07/29/22 15:56 Urine Urobilinogen Norm mg/dL (Negative) 07/29/22 15:56 Ur Leukocyte Esterase Negative (Negative) 07/29/22 15:56 Urine RBC 0-4 /hpf (0-2) H 07/29/22 15:56 Urine WBC 10-15 /hpf (0-5) H 07/29/22 15:56 Ur Squamous Epith Cells 0-4 /hpf (0-5) H 07/29/22 15:56 Amorphous Sediment Not Reportable 07/29/22 15:56 Urine Bacteria Trace /hpf (NONE) 07/29/22 15:56 Hepatitis A IgM Ab Non-reactive (Nonreactive) 08/01/22 20:04 Hep Bs Antigen Non-reactive (Nonreactive) 08/01/22 20:04 Hep Bs Antibody 105.4 (11.5-1000) 08/01/22 20:04 Hep B Core Total Ab Non-reactive (Nonreactive) 08/01/22 20:04 Hepatitis C Antibody Non-reactive (Nonreactive) 08/01/22 20:04 Vitals Last Vital Signs Temp 98 F 08/02/22 08:00 Pulse 81 08/02/22 08:00 Resp 17 08/02/22 08:00 BP 162/96 08/02/22 08:00 Pulse Ox 99 08/02/22 08:00 O2 Del Method 08/01/22 23:33 Discharge Plan Discharge Patient Disposition: Home Condition: Stable Prescriptions: New Augmentin 500-125 mg tablet 1 tab PO .on dialysis day 14 Days Qty: 7 0RF Rx Instructions: On Dialysis Day after Dialysis doxycycline monohydrate 100 mg capsule 100 mg PO BID 10 Days Qty: 20 0RF Continued Lantus Solostar U-100 Insulin 100 unit/mL (3 mL) insulin pen 16 unit SUBCUT BEDTIME omega 1-jza-uyx-fish oil [Fish Oil] 1,000 mg (120 mg-180 mg) capsule 1 cap PO BID cholecalciferol (vitamin D3) 50 mcg (2,000 unit) capsule 50 mcg PO QPM midodrine 5 mg tablet 5 mg PO TID Rx Instructions: do not give last dose of day after 6PM or within 4 hrs of bedtime omeprazole 20 mg capsule,delayed release(DR/EC) 20 mg PO DAILY citalopram 40 mg tablet 20 mg PO DAILY colchicine [Colcrys] 0.6 mg tablet See Rx Instructions .ROUTE .COMPLEX Rx Instructions: 0.3 mg orally TWO TIMES A WEEK- MONDAY AND MONDAY aspirin 81 mg tablet,delayed release (DR/EC) 81 mg PO DAILY Hold Instructions: Resume on 09/21/21. tolterodine [Detrol] 2 mg tablet 2 mg PO DAILY ascorbic acid (vitamin C) 500 mg tablet 1,000 mg PO BID allopurinol 100 mg tablet 200 mg PO DAILY simvastatin 80 mg tablet 40 mg PO QPM tamsulosin 0.4 mg capsule 0.4 mg PO DAILY Creon 12,000-38,000 -60,000 unit capsule,delayed release(DR/EC) 3 cap PO TID Rx Instructions: administer with meals and/or snacks bupropion HCl 150 mg tablet extended release 24 hr 150 mg PO QAM insulin lispro [Humalog KwikPen Insulin] 100 unit/mL insulin pen See Rx Instructions .ROUTE .COMPLEX Rx Instructions: SLIDING SCALE oxybutynin chloride 5 mg tablet 5 mg PO TID vit B comp no.9-tyigs-N-biotin 1-60-300 mg-mg-mcg tablet 1 tab PO DAILY sevelamer HCl 800 mg tablet 800 mg PO TID Rx Instructions: must administer with a meal/food sodium bicarbonate 650 mg tablet 650 mg PO TID multivitamin [Daily-Oliva] Tablet 1 tab PO QAM Discharge Orders: Discharge Order (Routine); Ordered 08/02/22 Ordered By: Rolo Tinoco Referrals: Edvin Nelson DO [Physician] - 08/16/22 9:30 am Annmarie Jacobson MD [Primary Care Provider] - 1 week (Please call and schedule your appointment with Dr. Jacobson.) Patient Instructions: Rectal Abscess (DC), Incision and Drainage (DC), Opioid Safety Discharge Attestations Time Spent in Discharge Care*: less than 30 min Quality Metrics Clinical Quality Measures [ No reported AMI, CVA or VTE this stay] Coding Level of Care Code Acute Chg FW DC note Diagnoses Flor-rectal abscess K61.1 Acute metabolic encephalopathy G93.41 ESRD on dialysis N18.6; Z99.2 Anxiety F41.9 Depression F32.A Gout M10.9 BPH (benign prostatic hyperplasia) N40.0
[2022-08-02 12:00] VITALS: BP 139/71; PULSE 69; RESP 17; TEMP 36.6; O2SAT 97
[2022-08-02 12:26] LABS: Glucose Point of Care 293 mg/dL (70-110)
[2022-08-02 12:26] LABS: Glucose Point of Care 250 mg/dL (70-110)
--- NOTE | 2022-08-02 12:41 | P.PN_ITS ---
Subjective Subjective: no new complaints Medications: Reviewed: Yes Vitals/I&O/Wt Last Vital Signs Temp 97.9 F 08/02/22 12:00 Pulse 69 08/02/22 12:00 Resp 17 08/02/22 12:00 BP 139/71 08/02/22 12:00 Pulse Ox 97 08/02/22 12:00 O2 Del Method 08/01/22 23:33 08/01/22 08/02/22 08/02/22 22:59 06:59 14:59 Intake Total 707.083 / 1247.083 50 / 1297.083 240 / 240 Output Total 300 / 1200 200 / 1400 Balance 407.083 / 47.083 -150 / -102.917 240 / 240 Weight last 48 hrs Weight 86.908 kg Weight 86.908 kg Physical Exam Resp: COMMON NORMALS: normal respiratory effort, No retractions, No use of accessory muscles and clear to auscultation bilaterally EFFORT & INSPECTION: Yes symmetric chest movement AUSCULTATION: clear to auscultation bilaterally Extremity: COMMON NORMALS: no pedal edema Data 08/02/22 04:25 08/02/22 04:25 Micro: Microbiology 07/31/22 09:13 Gram Stain - Final Other Source Anaerobic Culture - Preliminary Wound Culture - Preliminary Gram Negative Rods A&P Assessment and plan (1) ESRD on dialysis: Plan 1.? End-stage renal disease: On hemodialysis per Monday schedule as outpatient, plan for hemodialysis tomorrow 2.? Hypertension: Restart all home medications, blood pressure control 3.? Gluteal abscess: Status post I&D by general surgery 4.? Anemia: Continue to monitor hemoglobin, transfuse if hemoglobin less than 7 Patient evaluated using audiovisual cart. Attestations Medical Necessity Statement*: Patient is to be in hospital for management of perirectal abscess, need for IV antibiotics. Coding Level of Care Code Acute Dental Officer for [facility] Fwd Diagnoses ESRD on dialysis N18.6; Z99.2
[2022-08-02] MEDS: insulin lispro 100 unit/1 mL SUBCUT (12:54)
--- NOTE | 2022-08-02 13:17 | PC.CHAP ---
Pastoral Care Encounter/Spiritual Assessment Type of Contact [] Declined district leader visit [] Patient/Family/Request visit [] Outpatient visit [] Follow-up visit [] Physician referral [] Code/Alert [x] Routine visit [] Staff referral [] Actively dying [] Patient sleeping [] Family support [] [] Out of room [] Palliative care [] [] Receiving care in room [] Pre-surgical visit [] Trauma [] Long length of stay [] ICU visit [] Other: Relational/Emotional Strength [x] Patient feels connected with others/family/visitors/staff [] Distress [] Loneliness/isolation [] Abandonment Spirituality of Patient [x] Person of Charis [x] Attends Hoahaoism of their Charis [x] Believes in Prayer [x]x Reads Bible or Church materials [] There are Spiritual issues to be addressed Plumbing Foreman Interventions [x] Prayer [x] Active listening [x] Non-anxious presence [] Spiritual/emotional support [] Crisis/trauma care [] Spiritual counseling [] Bereavement support [] Provided bereavement packet [] Provided Bible/devotional materials [] Provided toy/stuffed animal, coloring book to patient or family member [] Provided Communion [] Anointing/Bono [] Salvation [x] Completed spiritual assessment [] Other: Impact on Illness or Injury [] Angry [] Fearful [] Anxious [] Often cries [] Exhaustion [] Unable to work [] Unable to attend baptism [] Unable to walk/stand [] Unable to read [] Unable to drive [] Unable to eat/drink [] Unable to sleep [] Unable to be with family [] Patient intubated [] Other: Summary Time spent with patient 10 min
--- NOTE | 2022-08-02 14:14 | P.PN_ITS ---
Subjective Subjective: Patient reports minimal perirectal pain. Vitals/I&O/Wt Last Vital Signs Temp 97.9 F 08/02/22 12:00 Pulse 69 08/02/22 12:00 Resp 17 08/02/22 12:00 BP 139/71 08/02/22 12:00 Pulse Ox 97 08/02/22 12:00 O2 Del Method 08/01/22 23:33 08/01/22 08/02/22 08/02/22 22:59 06:59 14:59 Intake Total 707.083 / 1247.083 50 / 1297.083 240 / 240 Output Total 300 / 1200 200 / 1400 Balance 407.083 / 47.083 -150 / -102.917 240 / 240 Weight last 48 hrs Weight 191 lb 9.6 oz Weight 191 lb 9.6 oz Physical Exam 2 Narrative: General: No acute distress, awake alert and oriented x3 Skin: Some amount of induration left of the anus with minimal exudate. Data 08/02/22 04:25 08/02/22 04:25 Micro: Microbiology 07/31/22 09:13 Gram Stain - Final Other Source Anaerobic Culture - Preliminary Wound Culture - Final Escherichia coli A&P Assessment and plan (1) Flor-rectal abscess: Plan Postoperative day #2 status post incision and drainage of left perirectal abscess Daily dressing changes with plain packing gauze Complete course of antibiotics as an outpatient Follow-up in my office in 2 weeks Surgically stable for discharge Attestations Medical Necessity Statement*: Further hospitalization per hospitalist Coding Level of Care Code Acute Customer Success Representative for [facility] Fwd Diagnoses Flor-rectal abscess K61.1
[2022-08-02 14:45] VITALS: BP 139/71; PULSE 69; RESP 17; TEMP 36.6; O2SAT 97
--- NOTE | 2022-08-02 14:47 | PC.NURSE ---
8844 discharge instructions given to patient. Patient voiced understanding. Patient waiting on for ride
--- NOTE | 2022-08-02 14:48 | PC.NURSE ---
1230 wound care demonstrated for who stated she understood concept but refused to perform actual wound care at this time.
== END 2022-08-02 14:20 | disposition home health service (06) | DRG 344 ==
LOC: ER 14:45 → MEDSURG 15:50
PROVIDERS: Hospitalist; Physician Assistant; Surgery; Admitting Provider Internal Medicine; Emergency Provider Family Medicine; PCP Family Medicine; Visit Provider Internal Medicine
PROC: 0D9P0ZX Drainage of Rectum, Open Approach, Diagnostic (ICD-10-PCS; principal; 2022-07-31 08:00)
DX: K61.1 Rectal abscess (principal); G93.41 Metabolic encephalopathy; N18.6 End stage renal disease; E11.22 Type 2 diabetes mellitus with diabetic chronic kidney disease; F41.9 Anxiety disorder, unspecified; F32.A Depression, unspecified; M10.9 Gout, unspecified; N40.0 Benign prostatic hyperplasia without lower urinary tract symptoms; K21.9 Gastro-esophageal reflux disease without esophagitis; J44.9 Chronic obstructive pulmonary disease, unspecified; D63.1 Anemia in chronic kidney disease; I10 Essential (primary) hypertension; E78.5 Hyperlipidemia, unspecified; E66.01 Morbid (severe) obesity due to excess calories; Z68.30 Body mass index [BMI] 30.0-30.9, adult; Z99.2 Dependence on renal dialysis; Z79.4 Long term (current) use of insulin; Z85.51 Personal history of malignant neoplasm of bladder; Z86.73 Personal history of transient ischemic attack (TIA), and cerebral infarction without residual deficits; Z90.5 Acquired absence of kidney
CPT/HCPCS: 12345; 36415; 36416; 72193; 80048; 80053; 80069; 81001; 82962; 83605; 83735; 84100; 85025; 86705; 86706; 86709; 86803; 87040; 87070; 87075; 87077; 87186; 87205; 87340; 90935; 93005; 96361; 96372; 96374; 99285; J1100; J1644; J1815; J2405; J2543; J2704; J3010; J3370; J7030; J7050; Q3014; Q9967

== ENCOUNTER 2022-08-04 10:00 | Outpatient (CLI) | payer OTHER, SELFPAY ==
--- NOTE | 2022-08-04 10:15 | US_ITS ---
WS: [id number] INDICATION: Abscess TECHNIQUE: Ultrasound soft tissue area of concern FINDINGS: Ultrasound soft tissue area of concern rectal abscess. Rectal abscess reportedly has been e vacuated compared to July 29, 2022. This is decreased in size compared to previous with a small r esidual fluid collection measuring 11.5 x 3.0 x 2.1 mm. Associated soft tissue edema. Associated skin thickening. No other suspicious findings. US/US soft tissue head neck [id number] IMPRESSION: Improved rectal abscess compared to July 29, 2022
== END 2022-08-04 10:01 | disposition home or self-care (01) ==
PROVIDERS: PCP Family Medicine; Visit Provider Nurse Practitioner Family
DX: K61.1 Rectal abscess (principal); I96 Gangrene, not elsewhere classified; L98.412 Non-pressure chronic ulcer of buttock with fat layer exposed
CPT/HCPCS: 11042; 76536; 99213

== ENCOUNTER → 2022-08-08 15:10 | Outpatient (BNVA) | payer MEDICARE, OTHER, SELFPAY | PROVIDERS: PCP Family Medicine; Visit Provider Nurse Practitioner Family | DX: I96 Gangrene, not elsewhere classified (principal); L98.422 Non-pressure chronic ulcer of back with fat layer exposed | CPT/HCPCS: 11042; A6212 ==

== ENCOUNTER → 2022-08-15 13:53 | Outpatient (BNVA) | payer MEDICARE, OTHER, SELFPAY | PROVIDERS: PCP Family Medicine; Visit Provider Nurse Practitioner Family | DX: L02.31 Cutaneous abscess of buttock (principal) | CPT/HCPCS: 99213 ==

== ENCOUNTER → 2022-08-16 08:53 | Outpatient (BNVA) | payer MEDICARE, OTHER, SELFPAY | PROVIDERS: PCP Family Medicine; Visit Provider Surgery | DX: K61.1 Rectal abscess (principal) | CPT/HCPCS: 99213 ==

== ENCOUNTER → 2022-08-22 14:46 | Outpatient (BNVA) | payer MEDICARE, OTHER, SELFPAY | PROVIDERS: PCP Family Medicine; Visit Provider Thoracic Surgery (Cardiothoracic Vascular Surgery) | DX: Z09 Encounter for follow-up examination after completed treatment for conditions other than malignant neoplasm (principal) | CPT/HCPCS: 99212 ==

== ENCOUNTER 2022-11-07 15:03 | Emergency (ER) | payer OTHER, SELFPAY ==
[2022-11-07 15:24] VITALS: BP 116/84; PULSE 75; RESP 15; TEMP 36.3; O2SAT 98; BMI 29.0
--- NOTE | 2022-11-07 15:44 | ED_ITS ---
HPI - Fall General: Chief Complaint: Fall Stated Complaint: fall/head injury Time Seen by Provider: 11/07/22 15:31 Source: patient Mode of arrival: ambulatory Limitations: no limitations History of Present Illness: Patient is a very nice 72-year-old male who presents to ED today along with his after he was sent to the [place] for CT head imaging. According to patient he has problems with his equilibrium ever since a stroke back in 2009. He states because of which she falls often. He states he fell yesterday and struck his frontal region. No LOC. Patient is on Plavix. He does not complain of a headache. No neck pain. No other injuries related to the fall. Tetanus UTD. complaint: fall Onset (ago): day(s) Fall from: standing Fall witnessed: yes, by family Place fall occurred: home Loss of consciousness: None Prolonged down time: no Symptoms prior to fall: lightheadedness Location of injury: head Associated symptoms-after fall: Reports no associated symptoms; Denies chest pain, confusion, headache(s), neck pain or vertigo Review of Systems Eyes: Denies: change in vision, blurry vision, floaters or seeing flashes Card: Denies: chest pain, palpitations, syncope or pre-syncope GI: Denies: nausea or vomiting Musc: Denies: neck pain, back pain, extremity pain or joint pain Skin/Breast: Reports: other (forehead abrasion) Neuro: Denies: headache(s), numbness in extremities, weakness in extremities, sensory changes, vertigo, confusion, behavioral changes, difficulty commun icating thoughts or seizure-like activity [facility] ED PFSH: Medical History Acute metabolic encephalopathy Anxiety BPH (benign prostatic hyperplasia) Depression Diabetes mellitus ESRD (end stage renal disease) ESRD on dialysis GERD (gastroesophageal reflux disease) Gout History of bladder cancer History of colon polyps History of stroke 2010 Flor-rectal abscess Surgical History History of appendectomy History of cholecystectomy History of colonoscopy History of kidney removal left side Family History Other CAD (coronary artery disease) Cancer Chronic kidney disease (CKD) Diabetes Lung disease Social History Smoking and tobacco status: former smoker Alcohol intake: never Physical Exam Const: COMMON NORMALS: no acute distress, average body habitus, patient oriented x3, no limitations, healthy appearing, alert and well nourished ORIENTATION/CONSCIOUSNESS: Yes awake, Yes oriented to person, Yes oriented to place and Yes oriented to time HENMT: COMMON NORMALS: normocephalic HEAD & SCALP: normal to inspection, normocephalic and other (central forehead abrasion; no hematoma) FACE & SINUS: normal facial exam Eye: GENERAL EYE: appearance normal, both eyes and all related structures Neck/C-Spine: COMMON NORMALS: full ROM GENERAL: Yes normal visual inspection CERVICAL SPINE: No pain with cervical ROM, No Cervical spine tenderness and No step off deformity Resp: COMMON NORMALS: normal respiratory effort Cardio: COMMON NORMALS: regular rate and regular rhythm RATE: regular rate RHYTHM: regular rhythm Back/Pelvis: COMMON NORMALS: thoracic and lumbar spine normal to inspection, no thoracic nor lumbar tenderness and thoraco-lumbar ROM normal Extremity: GENERAL: Yes normal exam except as noted Neuro: ELISABET COMA SCALE: document GCS findings Elisabet coma scale eye opening: Spontaneous Elisabet coma scale verbal response: Orientated Elisabet coma scale motor response: Obey commands Baker coma scale total score: 15 COMMON NORMALS: patient oriented x3, CN's II-XII intact bilaterally, moves all extremities, no focal motor deficits and no sensory deficits noted SENSORIUM/ORIENTATION: Yes alert, Yes oriented to person, Yes oriented to place and Yes oriented to time Skin: NARRATIVE SKIN EXAM: forehead abrasion?otherwise normal skin exam Course Vital Signs: Vital signs: Vital Signs Temperature 97.4 F L 11/07/22 15:24 Pulse Rate 75 11/07/22 15:24 Respiratory Rate 15 11/07/22 15:24 Blood Pressure 116/84 11/07/22 15:24 Pulse Oximetry 98 11/07/22 15:24 Oxygen Delivery Me thod 11/07/22 15:24 MDM - Fall Medical Decision Making CT head negative. He will be allowed discharge. Return to ED precautions given. Lab Data Radiology Impressions Head CT 11/07/22 15:47 IMPRESSION: 1. No acute intracranial abnormalities. 2. Multiple old infarcts left cerebral hemisphere and diffuse chronic white matter microvascular changes. Discharge Plan Discharge Patient Disposition: Home Clinical Impression: Fall Qualifiers: Encounter type: initial encounter Qualified Code(s): W19.XXXA - Unspecified fall, initial encounter Forehead contusion Qualifiers: Encounter type: initial encounter Qualified Code(s): S00.83XA - Contusion of other part of head, initial encounter Condition: Stable Prescriptions: No Action Lantus Solostar U-100 Insulin 100 unit/mL (3 mL) insulin pen 16 unit SUBCUT BEDTIME omega 8-skf-bmy-fish oil [Fish Oil] 1,000 mg (120 mg-180 mg) capsule 1 cap PO BID cholecalciferol (vitamin D3) 50 mcg (2,000 unit) capsule 50 mcg PO QPM midodrine 5 mg tablet 5 mg PO TID Rx Instructions: do not give last dose of day after 6PM or within 4 hrs of bedtime omeprazole 20 mg capsule,delayed release(DR/EC) 20 mg PO DAILY citalopram 40 mg tablet 20 mg PO DAILY colchicine [Colcrys] 0.6 mg tablet See Rx Instructions .ROUTE .COMPLEX Rx Instructions: 0.3 mg orally TWO TIMES A WEEK- MONDAY AND MONDAY tolterodine [Detrol] 2 mg tablet 2 mg PO DAILY ascorbic acid (vitamin C) 500 mg tablet 1,000 mg PO BID allopurinol 100 mg tablet 200 mg PO DAILY simvastatin 80 mg tablet 40 mg PO QPM tamsulosin 0.4 mg capsule 0.4 mg PO DAILY Creon 12,000-38,000 -60,000 unit capsule,delayed release(DR/EC) 3 cap PO TID Rx Instructions: administer with meals and/or snacks bupropion HCl 150 mg tablet extended release 24 hr 150 mg PO QAM insulin lispro [Humalog KwikPen Insulin] 100 unit/mL insulin pen See Rx Instructions .ROUTE .COMPLEX Rx Instructions: SLIDING SCALE oxybutynin chloride 5 mg tablet 5 mg PO TID vit B comp no.2-daiav-O-biotin 1-60-300 mg-mg-mcg tablet 1 tab PO DAILY sevelamer HCl 800 mg tablet 800 mg PO TID Rx Instructions: must administer with a meal/food sodium bicarbonate 650 mg tablet 650 mg PO TID clopidogrel [Plavix] 75 mg tablet 75 mg PO DAILY multivitamin [Daily-Oliva] Tablet 1 tab PO QAM Discharge Orders: Discharge ED (Routine); Ordered 11/07/22 Ordered By: Yaona Redd Referrals: Annmarie Jacobson MD [Primary Care Provider] - Coding Level of Care Code ED Bar Tacker Sewing Machine for [facility]
--- NOTE | 2022-11-07 15:47 | CTR_ITS ---
PROCEDURE INFORMATION: Exam: CT Head Without Contrast Exam date and time: 11/07/2022 3:57 PM Age: 72 years old Clinical indication: Injury or trauma; Fall; Blunt trauma (contusions or hematomas); Without loss of consciousness; Injury date: 11/07/2022; Injury details: Blunt trauma to frontal bone today; Additional info: Fall/injury TECHNIQUE: Imaging protocol: Computed tomography of the head without contrast. Radiation optimization: All CT scans at this facility use at least one of these dose optimization techniques: automated exposure control; mA and/or kV adjustment per patient size (includes targeted exams where dose is matched to clinical indication); or iterative reconstruction. REPORTING DATA: Count of CT and Cardiac NM exams in prior 12 months: This patient has received 2 known CTs and 0 known cardiac nuclear medicine studies in the 12 months prior to the current study. COMPARISON: US soft tissue head neck [id number] 08/04/2022 10:42 AM RADIATION DOSE METRICS: Total DLP (mGy-cm): 1140.18 FINDINGS: Brain: There is no evidence of intracranial hemorrhage. There are multiple infarct old infarcts involving the left frontal, parietal and occipital lobes. There is also focal area of atrophy and cystic encephalomalacia along the anterior inferior aspect of the left temporal lobe likely secondary to old infarct. No evidence of acute infarct. There are diffuse vague areas of decreased attenuation throughout the periventricular white matter attributed to chronic microvascular changes. Cerebral ventricles: Unremarkable for age. Paranasal sinuses: Visualized sinuses are unremarkable. No fluid levels. Mastoid air cells: Visualized mastoid air cells are well aerated. Bones/joints: Unremarkable. No acute fracture. Soft tissues: Unremarkable. CT/CT head wo con* [id number] IMPRESSION: 1. No acute intracranial abnormalities. 2. Multiple old infarcts left cerebral hemisphere and diffuse chronic white matter microvascular changes.
== END 2022-11-07 16:29 | disposition home or self-care (01) ==
PROVIDERS: Emergency Provider Physician Assistant; PCP Family Medicine
DX: S00.83XA Contusion of other part of head, initial encounter (principal); Z79.02 Long term (current) use of antithrombotics/antiplatelets; Z79.4 Long term (current) use of insulin; W19.XXXA Unspecified fall, initial encounter
CPT/HCPCS: 70450; 96361; 96374; 99284; 99285

== ENCOUNTER 2023-01-02 13:19 | Outpatient (RCR) | payer OTHER, SELFPAY | END 2023-02-01 23:59 | disposition home or self-care (01) | LOC: CR 13:19 | PROVIDERS: PCP Family Medicine; Referring Provider Family Medicine; Visit Provider Family Medicine | DX: Z95.1 Presence of aortocoronary bypass graft (principal) | CPT/HCPCS: 93798 ==

== ENCOUNTER 2023-02-03 10:31 | Outpatient (RCR) | payer OTHER, SELFPAY | END 2023-03-03 23:59 | disposition home or self-care (01) | LOC: CR 10:31 | PROVIDERS: PCP Family Medicine; Referring Provider Family Medicine; Visit Provider Family Medicine | DX: Z95.1 Presence of aortocoronary bypass graft (principal) | CPT/HCPCS: 93798 ==

== ENCOUNTER → 2023-02-16 09:18 | Outpatient (BNVA) | payer MEDICARE, OTHER, SELFPAY | PROVIDERS: PCP Family Medicine; Visit Provider Nurse Practitioner Family | DX: L57.0 Actinic keratosis (principal); D69.2 Other nonthrombocytopenic purpura; L81.4 Other melanin hyperpigmentation; D22.5 Melanocytic nevi of trunk; L57.8 Other skin changes due to chronic exposure to nonionizing radiation; L85.3 Xerosis cutis; Z71.89 Other specified counseling; Z85.828 Personal history of other malignant neoplasm of skin; Z87.891 Personal history of nicotine dependence | CPT/HCPCS: 17004; 99213 ==

== ENCOUNTER 2023-03-08 20:00 | Outpatient (CLI) | payer OTHER, SELFPAY | END 2023-03-08 20:01 | disposition home or self-care (01) | LOC: SLEEP 03-09 06:26 | PROVIDERS: PCP Family Medicine; Visit Provider Family Medicine | DX: G47.33 Obstructive sleep apnea (adult) (pediatric) (principal); G47.31 Primary central sleep apnea | CPT/HCPCS: 95811 ==

== ENCOUNTER 2023-03-10 14:47 | Outpatient (RCR) | payer OTHER, SELFPAY | END 2023-04-03 23:59 | disposition home or self-care (01) | LOC: CR 14:47 | PROVIDERS: PCP Family Medicine; Referring Provider Family Medicine; Visit Provider Family Medicine | DX: Z95.1 Presence of aortocoronary bypass graft (principal) | CPT/HCPCS: 93798 ==

== ENCOUNTER 2023-04-04 12:36 | Outpatient (RCR) | payer OTHER, SELFPAY | END 2023-05-04 23:59 | disposition home or self-care (01) | LOC: CR 12:36 | PROVIDERS: PCP Family Medicine; Referring Provider Family Medicine; Visit Provider Family Medicine | DX: Z95.1 Presence of aortocoronary bypass graft (principal) | CPT/HCPCS: 93798 ==

== ENCOUNTER 2023-04-24 15:07 | Outpatient (CLI) | payer OTHER, SELFPAY ==
[2023-04-24 18:13] LABS: Hematocrit 31.3 % (42.0-52.0); Hemoglobin 10.3 g/dL (11.7-16.6); Mean Corpuscular HGB Conc 32.9 g/dL (30.0-36.0); Mean Corpuscular Hemoglobin 30.7 pg (28.0-34.0); Mean Corpuscular Volume 93.4 fl (80-94); Mean Platelet Volume 10.3 fL (7.4-10.4); Platelet Count 157 10^3/cmm (130-400); Red Blood Count 3.35 10^6/uL (4.1-5.3); Red Cell Distribution Width 15.7 % (12.1-15.1); White Blood Count 8.5 10^3/uL (4.0-10.0)
[2023-04-24 18:21] LABS: Absolute Eosinophils 0.4 10^3/cmm (0.0-0.7); Absolute Segmented Neutrophil 6.5 10/cmm (1.6-7.1); Band Neutrophils Absolute 0.2 10^3/cmm (0.0-1.2); Eosinophils 5 %; Lymphocytes 13 %; Monocytes Absolute 0.3 10^3/cmm (0.1-0.6); Segmented Neutrophils 76 %; Total Cells Counted 100 (0-100)
[2023-04-24 18:22] LABS: Absolute Neutrophil 6.6 10^3/cmm (1.4-6.5); Anisocytosis Trace; Platelet Estimate Normal (Normal)
[2023-04-24 18:23] LABS: Lymphocytes Absolute 1.1 10^3/cmm (1.2-3.4)
[2023-04-25 19:34] LABS: Alanine Aminotransferase 12 U/L (0-41); Alkaline Phosphatase 82 U/L (40-130); Anion Gap 18.3 (5-19); Aspartate Amino Transferase 13 U/L (0-40); Blood Urea Nitrogen 26 mg/dL (8-23); Calcium 8.9 mg/dL (8.5-10.5); Carbon Dioxide 31 mmol/L (22-29); Chloride 97 mmol/L (98-107); Globulin 2.1 g/dL (1.3-4.6); Glucose 119 mg/dL (65-115); Osmolality Calculated 298 mOsm/kg (285-295); Potassium 5.3 mmol/L (3.5-5.1); Sodium 141 mmol/L (136-145); Total Bilirubin 0.3 mg/dL (0.15-1.2); Total Protein 6.1 g/dL (6.6-8.7)
== END 2023-04-24 15:08 | disposition home or self-care (01) ==
LOC: LAB 15:11
PROVIDERS: PCP Family Medicine; Visit Provider Family Medicine
DX: N30.00 Acute cystitis without hematuria (principal)
CPT/HCPCS: 80053; 85007; 85027

== ENCOUNTER 2023-05-02 13:21 | Outpatient (CLI) | payer OTHER, SELFPAY ==
[2023-05-02 13:37] LABS: Basophils # 0.1 10^3/uL (0.0-0.1); Basophils % 1.1 %; Eosinophils # 0.4 10^3/uL (0.0-0.8); Eosinophils % 4.4 %; Hematocrit 31.2 % (37-53); Lymphocytes # 1.1 10^3/uL (0.8-4.8); Lymphocytes % 13.9 %; Mean Corpuscular HGB Conc 32.4 g/dL (30-55); Mean Corpuscular Hemoglobin 29.9 pg (27-33); Mean Corpuscular Volume 92.3 fl (82-101); Mean Platelet Volume 10.3 fL (7.4-10.4); Monocytes # 0.7 10^3/uL (0.2-0.9); Monocytes % 9.2 %; Neutrophils # 5.62 10^3/uL (1.8-7.7); Nucleated Red Blood Cells % 0 %; Platelet Count 210 10^3/cmm (157-399); Red Blood Count 3.38 10^6/uL (3.85-5.65); Red Cell Distribution Width 15.2 % (12.1-15.1); White Blood Count 7.92 10^3/uL (3.29-11.43)
[2023-05-02 13:45] LABS: Add Urine Microscopic? YES; Bilirubin Urine Neg (Negative); Blood Urine Neg (Negative); Glucose Urine UA 1+ (Normal); Ketones Urine Negative (Negative); Leukocyte Esterase Urine Negative (Negative); Nitrate Urine Negative (Negative); Protein Urine 1+ (Negative); Sulfosalicylic Acid Urine Negative (Negative); Urine Appearance Clear (CLEAR); Urine Color Straw (Yellow); Urobilinogen Urine Norm (Negative); pH Urine 9 (5-7)
[2023-05-02 13:47] LABS: Add Urine Culture? No; RBC Urine 0-4 /hpf (0-2); Squamous Epithelial Cell Urine 0-4 /hpf (0-5); WBC Urine 0-4 /hpf (0-5)
[2023-05-02 13:56] LABS: Alanine Aminotransferase 19 U/L (0-41); Albumin Level 3.9 g/dL (3.5-5.2); Alkaline Phosphatase 91 U/L (40-130); Anion Gap 16.4 (5-19); Aspartate Amino Transferase 22 U/L (0-40); Blood Urea Nitrogen 22 mg/dL (8-23); Calcium 9.3 mg/dL (8.5-10.5); Carbon Dioxide 31 mmol/L (22-29); Chloride 97 mmol/L (98-107); Globulin 2.1 g/dL (1.3-4.6); Glucose 186 mg/dL (65-115); Osmolality Calculated 298 mOsm/kg (285-295); Potassium 4.4 mmol/L (3.5-5.1); Sodium 140 mmol/L (136-145); Total Bilirubin 0.4 mg/dL (0.15-1.2)
== END 2023-05-02 13:22 | disposition home or self-care (01) ==
LOC: LAB 13:23
PROVIDERS: PCP Family Medicine; Visit Provider Family Medicine
DX: Z01.89 Encounter for other specified special examinations (principal)
CPT/HCPCS: 80053; 81001; 85025

== ENCOUNTER 2023-05-08 10:28 | Emergency (ER) | payer OTHER, SELFPAY ==
[2023-05-08 10:33] VITALS: BP 122/76; PULSE 88; RESP 16; TEMP 36.7; O2SAT 95
--- NOTE | 2023-05-08 10:44 | CTR_ITS ---
PROCEDURE INFORMATION: Exam: CT Head Without Contrast Exam date and time: 05/08/2023 10:54 AM Age: 73 years old Clinical indication: Injury or trauma; Blunt trauma (contusions or hematomas); Consciousness not specified; Injury details: Dizziness with fall following having dialysis; Patient HX: HX of bladder and kidney cancer TECHNIQUE: Imaging protocol: Computed tomography of the head without contrast. Radiation optimization: All CT scans at this facility use at least one of these dose optimization techniques: automated exposure control; mA and/or kV adjustment per patient size (includes targeted exams where dose is matched to clinical indication); or iterative reconstruction. REPORTING DATA: Count of CT and Cardiac NM exams in prior 12 months: This patient has received 3 known CTs and 0 known cardiac nuclear medicine studies in the 12 months prior to the current study. COMPARISON: CT head wo con* [id number] 11/07/2022 3:57 PM RADIATION DOSE METRICS: Total DLP (mGy-cm): 1108.83 FINDINGS: Brain: Redemonstration of multiple old infarcts involving the left frontal lobe, anterior aspect left temporal lobe and left occipital lobe. 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 Diffuse areas of decreased attenuation throughout the periventricular white matter consistent with chronic microvascular changes, stable. No evidence of intracranial hemorrhage. No significant interval changes. Mild age related cerebral volume loss. Cerebral ventricles: Unremarkable for age. Paranasal sinuses: Visualized sinuses are unremarkable. No fluid levels. Mastoid air cells: Visualized mastoid air cells are well aerated. Bones/joints: Unremarkable. No acute fracture. Soft tissues: Unremarkable. CT/CT head wo con* [id number] IMPRESSION: 1. No acute intracranial abnormalities. 2. Stable old infarcts left cerebral hemisphere and chronic white matter microvascular changes.
--- NOTE | 2023-05-08 10:45 | ECG_ITS ---
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 Measurements Intervals [place] Rate: 88 P: 0 MA: 0 QRS: 17 QRSD: 112 T: 89 QT: 416 QTc: 505 Interpretive Statements ATRIAL FIBRILLATION MODERATE INTRAVENTRICULAR CONDUCTION DELAY [110+ ms QRS DURATION] NONSPECIFIC ST & T-WAVE ABNORMALITY PROLONGED QT INTERVAL Compared to ECG 07/29/2022 13:19:36 Intraventricular conduction delay now present Prolonged QT interval now present Sinus tachycardia no longer present T-wave abnormality still present Electronically Signed On 05-08-2023 22:30:12 CDT by Ross Campbell M.D. [email or web address] hospitalZ[facility].[employer]/store/[id number]
[2023-05-08 11:02] LABS: Basophils # 0.1 10^3/uL (0.0-0.1); Basophils % 1.3 %; Eosinophils # 0.3 10^3/uL (0.0-0.8); Eosinophils % 4.7 %; Hematocrit 33.9 % (37-53); Lymphocytes # 1.3 10^3/uL (0.8-4.8); Lymphocytes % 18.3 %; Mean Corpuscular HGB Conc 31.6 g/dL (30-55); Mean Corpuscular Hemoglobin 29.1 pg (27-33); Mean Corpuscular Volume 92.1 fl (82-101); Mean Platelet Volume 10.1 fL (7.4-10.4); Monocytes # 0.5 10^3/uL (0.2-0.9); Monocytes % 7.6 %; Neutrophils # 4.76 10^3/uL (1.8-7.7); Neutrophils % 67.8 %; Nucleated Red Blood Cells % 0 %; Platelet Count 199 10^3/cmm (157-399); Red Blood Count 3.68 10^6/uL (3.85-5.65); White Blood Count 7.01 10^3/uL (3.29-11.43)
--- NOTE | 2023-05-08 11:06 | ED_ITS ---
HPI - Fall General: Chief Complaint: Fall Stated Complaint: fall, dizziness Time Seen by Provider: 05/08/23 10:29 Source: patient Mode of arrival: EMS History of Present Illness: 73-year-old male had a syncopal episode after he left dialysis. They pulled off about 800 mL he felt weak while he is walking out to the car he felt like his legs gave out from underneath him and he fell. He did strike his head no vomiting. MD complaint: fall Associated symptoms-after fall: Denies abdominal pain or chest pain Review of Systems Const: Denies: fever(s), chills, body aches, change in appetite, fatigue or malaise ENMT: Denies: throat pain, ear or mastoid pain, nasal discharge or nasal congestion Card: Denies: chest pain, edema, dyspnea on exertion or orthopnea Resp: Denies: dyspnea, productive cough or non-productive cough GI: Denies: abdominal pain, nausea, vomiting, hematemesis, coffee ground emesis, diarrhea, constipation, bloating, hematochezia or melena : Denies: flank pain, dysuria, urinary frequency or urinary urgency Skin/Breast: Denies: rash or pruritus PFSH ED PFSH: Medical History Acute metabolic encephalopathy Anxiety BPH (benign prostatic hyperplasia) Depression Diabetes mellitus ESRD (end stage renal disease) ESRD on dialysis GERD (gastroesophageal reflux disease) Gout History of bladder cancer History of colon polyps History of stroke 2010 Flor-rectal abscess Surgical History History of appendectomy History of cholecystectomy History of colonoscopy History of kidney removal left side Family History Other CAD (coronary artery disease) Cancer Chronic kidney disease (CKD) Diabetes Lung disease Social History Smoking and tobacco status: former smoker Alcohol intake: never Substance/Drug Use: never Physical Exam Const: GENERAL APPEARANCE: cooperative and comfortable ORIENTATION/CONS CIOUSNESS: Yes awake, Yes oriented to person, Yes oriented to place and Yes oriented to time HENMT: COMMON NORMALS: normocephalic and hearing grossly normal bilaterally HEAD & SCALP: normocephalic OTHER: Superficial abrasion superior aspect of the occiput midline Resp: COMMON NORMALS: normal respiratory effort, No retractions, No use of accessory muscles and clear to auscultation bilaterally AUSCULTATION: clear to auscultation bilaterally Cardio: COMMON NORMALS: regular rate, regular rhythm and No murmurs present ( Cardio) RATE: regular rate RHYTHM: regular rhythm GI: COMMON NORMALS: Soft to palpation and No hepatosplenomegaly present AUSCULTATION: Yes normoactive bowel sounds PALPATION: Yes Soft to palpation, No Tenderness to palpation present (GI), No Guarding due to palpation present (GI) and Yes No hepatosplenomegaly present Extremity: COMMON NORMALS: normal to inspection, capillary refill normal, no clubbing, cyanosis or edema, no calf tenderness and no pedal edema Neuro: SENSORIUM/ORIENTATION: Yes oriented to person, Yes oriented to place and Yes oriented to time Skin: COMMON NORMALS: no rashes or lesions noted GENERAL SKIN EXAM: no rashes or lesions noted Course Vital Signs: Vital signs: Vital Signs Temperature 98.1 F 05/08/23 10:33 Pulse Rate 91 05/08/23 11:49 Respiratory Rate 18 05/08/23 11:49 Blood Pressure 125/69 05/08/23 11:49 Pulse Oximetry 94 05/08/23 11:49 MDM - Fall Medical Decision Making Mild orthostasis on his orthostatics. Normal saline he is feeling somewhat better no acute EKG changes no elevation of troponin on the delta. We will discharge patient home he states he is feeling much better he is Medical Records I reviewed the patient's medical records. Lab Data I reviewed the patient's lab results. 05/08/23 10:43 05/08/23 10:[address] 05/08/23 10:44 IMPRESSION: 1. No acute intracranial abnormalities. 2. Stable old infarcts left cerebral hemisphere and chronic white matter microvascular changes. Laboratory Results WBC 7.01 10^3/uL (3.29-11.43) 05/08/23 10:43 RBC 3.68 10^6/uL (3.85-5.65) L 05/08/23 10:43 Hgb 10.70 g/dL (11.27-16.99) L 05/08/23 10:43 Hct 33.9 % (37-53) L 05/08/23 10:43 MCV 92.1 fl (82-101) 05/08/23 10:43 MCH 29.1 pg (27-33) 05/08/23 10:43 MCHC 31.6 g/dL (30-55) 05/08/23 10:43 RDW 15.0 % (12.1-15.1) 05/08/23 10:43 Plt Count 199 10^3/cmm (157-399) 05/08/23 10:43 MPV 10.1 fL (7.4-10.4) 05/08/23 10:43 Neut % (Auto) 67.8 % 05/08/23 10:43 Lymph % (Auto) 18.3 % 05/08/23 10:43 [place] % (Auto) 7.6 % 05/08/23 10:43 Eos % (Auto) 4.7 % 05/08/23 10:43 Baso % (Auto) 1.3 % 05/08/23 10:43 Neut # (Auto) 4.76 10^3/uL (1.8-7.7) 05/08/23 10:43 Lymph # (Auto) 1.3 10^3/uL (0.8-4.8) 05/08/23 10:43 [place] # (Auto) 0.5 10^3/uL (0.2-0.9) 05/08/23 10:43 Eos # (Auto) 0.3 10^3/uL (0.0-0.8) 05/08/23 10:43 Baso # (Auto) 0.1 10^3/uL (0.0-0.1) 05/08/23 10:43 Nucleated RBC % (auto) 0 % 05/08/23 10:43 Nucleated RBCs # 0.0 /100WBC 05/08/23 10:43 Sodium 142 mmol/L (136-145) 05/08/23 10:43 Potassium 4.0 mmol/L (3.5-5.1) 05/08/23 10:43 Chloride 94 mmol/L (98-107) L 05/08/23 10:43 Carbon Dioxide 37 mmol/L (22-29) H 05/08/23 10:43 Anion Gap 15.0 (5-19) 05/08/23 10:43 BUN 14 mg/dL (8-23) 05/08/23 10:43 Creatinine 2.5 mg/dL (0.7-1.2) H 05/08/23 10:43 GFR Calculation Not Reportable 05/08/23 10:43 Glucose 100 mg/dL (65-115) 05/08/23 10:43 Calculated Osmolality 295 mOsm/kg (285-295) 05/08/23 10:43 Calcium 9.5 mg/dL (8.5-10.5) 05/08/23 10:43 Total Bilirubin 0.5 mg/dL (0.15-1.2) 05/08/23 10:43 AST 19 U/L (0-40) 05/08/23 10:43 ALT 14 U/L (0-41) 05/08/23 10:43 Alkaline Phosphatase 98 U/L (40-130) 05/08/23 10:43 Troponin T Baseline 100 ng/L (0-15) H 05/08/23 10:43 Troponin T 120 Minute 96.34 ng/L (0-15) H 05/08/23 13:22 Delta Troponin T -3.66 ABS# (0-10) L 05/08/23 13:22 Total Protein 6.7 g/dL (6.6-8.7) 05/08/23 10:43 Albumin 4.4 g/dL (3.5-5.2) 05/08/23 10:43 Globulin 2.3 g/dL (1.3-4.6) 05/08/23 10:43 Urine Color Straw (Yellow) 05/08/23 12:31 Urine Appearance Clear (CLEAR) 05/08/23 12:31 Urine pH 9 (5-7) H 05/08/23 12:31 Ur Specific [place] 1.010 (1.005-1.030) 05/08/23 12:31 Urine Protein Neg (Negative) 05/08/23 12:31 Urine Glucose (UA) Norm (Normal) 05/08/23 12:31 Urine Ketones Negative (Negative) 05/08/23 12:31 Urine Blood Neg (Negative) 05/08/23 12:31 Urine Nitrate Negative (Negative) 05/08/23 12:31 Urine Bilirubin Neg (Negative) 05/08/23 12:31 Prot Sulfosalicylic Acd Negative (Negative) 05/08/23 12:31 Urine Urobilinogen Norm mg/dL (Negative) 05/08/23 12:31 Ur Leukocyte Esterase Negative (Negative) 05/08/23 12:31 Discharge Plan Discharge Patient Disposition: Home Clinical Impression: Near syncope, End stage renal disease on dialysis Condition: Stable Prescriptions: No Action Lantus Solostar U-100 Insulin 100 unit/mL (3 mL) insulin pen See Rx Instructions .ROUTE .COMPLEX Rx Instructions: SLIDING SCALE AT BEDTIME cholecalciferol (vitamin D3) 50 mcg (2,000 unit) capsule 50 mcg PO QPM midodrine 5 mg tablet 5 mg PO TID Rx Instructions: do not give last dose of day after 6PM or within 4 hrs of bedtime omeprazole 20 mg capsule,delayed release(DR/EC) 20 mg PO QAM citalopram 40 mg tablet 20 mg PO QAM colchicine (gout) [Colcrys] 0.6 mg tablet See Rx Instructions .ROUTE .COMPLEX Rx Instructions: 0.3 mg orally TWO TIMES A WEEK- MONDAY AND MONDAY ascorbic acid (vitamin C) 500 mg tablet 1,000 mg PO QPM allopurinol 100 mg tablet 200 mg PO QPM simvastatin 80 mg tablet 40 mg PO QPM tamsulosin 0.4 mg capsule 0.8 mg PO QPM Creon 12,000-38,000 -60,000 unit capsule,delayed release(DR/EC) 3 cap PO TID Rx Instructions: administer with meals and/or snacks bupropion HCl 150 mg tablet extended release 24 hr 150 mg PO QAM insulin lispro [Humalog KwikPen Insulin] 100 unit/mL insulin pen See Rx Instructions .ROUTE .COMPLEX Rx Instructions: SLIDING SCALE TID UP TO 12 UNITS Alexandra-Oliva Rx 1-60-300 mg-mg-mcg tablet 1 tab PO QAM sevelamer HCl 800 mg tablet 2,400 mg PO TID Rx Instructions: must administer with a meal/food sodium bicarbonate 650 mg tablet 650 mg PO TID clopidogrel [Plavix] 75 mg tablet 75 mg PO DAILY@12 carvedilol 12.5 mg tablet 12.5 mg PO BID Aspir-81 81 mg Tablet,Delayed Release (Dr/Ec) 81 mg PO QAM Discharge Orders: Discharge ED (Routine); Ordered 05/08/23 Ordered By: Gomez Acuna Referrals: Annmarie Jacobson MD [Primary Care Provider] - Patient Instructions: Opioid Safety, Pain Management Activity Restrictions/Additional Instructions: Follow-up with your primary care doctor within the week Coding Level of Care Code ED Pipelines Supervisor for Joseph Manriquez
--- NOTE | 2023-05-08 11:10 | PC.NURSE ---
PT PLACED ON CONTINUOS NIBP ,SPO2, AND CM
[2023-05-08 11:23] LABS: Troponin(5th) Baseline 100 ng/L (0-15)
[2023-05-08 11:25] LABS: Alanine Aminotransferase 14 U/L (0-41); Albumin Level 4.4 g/dL (3.5-5.2); Alkaline Phosphatase 98 U/L (40-130); Aspartate Amino Transferase 19 U/L (0-40); Blood Urea Nitrogen 14 mg/dL (8-23); Calcium 9.5 mg/dL (8.5-10.5); Carbon Dioxide 37 mmol/L (22-29); Chloride 94 mmol/L (98-107); Globulin 2.3 g/dL (1.3-4.6); Glucose 100 mg/dL (65-115); Osmolality Calculated 295 mOsm/kg (285-295); Sodium 142 mmol/L (136-145); Total Bilirubin 0.5 mg/dL (0.15-1.2); Total Protein 6.7 g/dL (6.6-8.7)
[2023-05-08 11:43] VITALS: BP 120/73; BP 90/45; BP 97/64; PULSE 108; PULSE 90; PULSE 93
[2023-05-08 11:49] VITALS: BP 125/69; PULSE 91; RESP 18; O2SAT 94
[2023-05-08] MEDS: sodium chloride 0.9% 250 ML IV (11:57)
[2023-05-08 12:41] LABS: Add Urine Microscopic? NO; Charge for UA Resulting for Rev
[2023-05-08 13:01] LABS: Bilirubin Urine Neg (Negative); Blood Urine Neg (Negative); Glucose Urine UA Norm (Normal); Ketones Urine Negative (Negative); Leukocyte Esterase Urine Negative (Negative); Nitrate Urine Negative (Negative); Protein Urine Neg (Negative); Sulfosalicylic Acid Urine Negative (Negative); Urine Appearance Clear (CLEAR); Urine Color Straw (Yellow); Urobilinogen Urine Norm (Negative); pH Urine 9 (5-7)
--- NOTE | 2023-05-08 13:08 | ECG_ITS ---
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 Measurements Intervals [place] Rate: 94 P: 0 MO: 0 QRS: 22 QRSD: 101 T: 88 QT: 406 QTc: 510 Interpretive Statements ATRIAL FIBRILLATION NONSPECIFIC ST & T-WAVE ABNORMALITY Compared to ECG 05/08/2023 11:03:47 Intraventricular conduction delay no longer present Prolonged QT interval no longer present T-wave abnormality still present Electronically Signed On 05-08-2023 22:33:06 CDT by Ross Campbell M.D. [id number]
[2023-05-08 14:03] LABS: Troponin 5 2HR 96.34 ng/L (0-15)
--- NOTE | 2023-05-08 14:06 | PC.PHAR ---
PT STATES HIS TAKES CARE OF HIS MEDICATIONS-PTS VERIFIED PTS MEDICATIONS-[facility] CL[facility]08/23 LABOR DAY-PTS STATES SHE PICKED UP ALBUTEROL SOLUTION BUT HAS NO MACHINE FOR THE MEDICATION-ALBUTEROL FILLED 04/18/23
[2023-05-08 14:23] LABS: Troponin 5 2HR Delta -3.66 ABS# (0-10)
[2023-05-09 06:28] LABS: Glucose Point of Care 104 mg/dL (70-110)
== END 2023-05-08 14:56 | disposition home or self-care (01) ==
PROVIDERS: Emergency Provider Family Medicine; PCP Family Medicine
DX: R55 Syncope and collapse (principal); E11.22 Type 2 diabetes mellitus with diabetic chronic kidney disease; N18.6 End stage renal disease; Z99.2 Dependence on renal dialysis; Z86.73 Personal history of transient ischemic attack (TIA), and cerebral infarction without residual deficits; Z85.51 Personal history of malignant neoplasm of bladder; Z87.891 Personal history of nicotine dependence; Z79.4 Long term (current) use of insulin; Z79.02 Long term (current) use of antithrombotics/antiplatelets; Z79.82 Long term (current) use of aspirin
CPT/HCPCS: 36416; 70450; 80053; 81003; 82962; 84484; 85025; 93005; 99285; J7050

== ENCOUNTER 2023-06-13 08:42 | Outpatient (RCR) | payer OTHER, SELFPAY | END 2023-07-04 23:59 | disposition home or self-care (01) | LOC: SPT 08:42 | PROVIDERS: PCP Family Medicine; Visit Provider Family Medicine | DX: R26.9 Unspecified abnormalities of gait and mobility (principal) | CPT/HCPCS: 97110; 97162 ==

== ENCOUNTER → 2023-06-29 09:00 | Outpatient (BNVA) | payer OTHER, SELFPAY | PROVIDERS: PCP Family Medicine; Visit Provider Nurse Practitioner Family | DX: L57.0 Actinic keratosis (principal); D69.2 Other nonthrombocytopenic purpura; L81.4 Other melanin hyperpigmentation; D22.5 Melanocytic nevi of trunk; L57.8 Other skin changes due to chronic exposure to nonionizing radiation; L85.3 Xerosis cutis; Z85.828 Personal history of other malignant neoplasm of skin; L82.1 Other seborrheic keratosis | CPT/HCPCS: 17000; 99213 ==

== ENCOUNTER 2023-07-05 06:00 | Outpatient (RCR) | payer OTHER, SELFPAY | END 2023-08-03 23:59 | disposition home or self-care (01) | LOC: SPT 06:00 | PROVIDERS: PCP Family Medicine; Visit Provider Family Medicine | DX: R26.89 Other abnormalities of gait and mobility (principal) | CPT/HCPCS: 97110; 97530 ==

== ENCOUNTER 2023-09-20 20:00 | Outpatient (CLI) | payer OTHER, SELFPAY | END 2023-09-20 20:01 | disposition home or self-care (01) | LOC: SLEEP 09-21 06:07 | PROVIDERS: PCP Family Medicine; Visit Provider Family Medicine | DX: G47.33 Obstructive sleep apnea (adult) (pediatric) (principal) | CPT/HCPCS: 95811 ==

== ENCOUNTER → 2024-02-20 13:46 | Outpatient (BNVA) | payer OTHER, SELFPAY | PROVIDERS: PCP Family Medicine; Visit Provider Nurse Practitioner Family | DX: D48.5 Neoplasm of uncertain behavior of skin (principal); Z99.2 Dependence on renal dialysis; Z85.820 Personal history of malignant melanoma of skin; L81.4 Other melanin hyperpigmentation; D22.39 Melanocytic nevi of other parts of face | CPT/HCPCS: 11102; 99213 ==

== ENCOUNTER → 2024-06-17 13:38 | Outpatient (BNVA) | payer OTHER, SELFPAY | PROVIDERS: PCP Family Medicine; Visit Provider Dermatology | DX: D48.5 Neoplasm of uncertain behavior of skin (principal) | CPT/HCPCS: 17261 ==

== ENCOUNTER 2024-07-04 08:23 | Outpatient (RCR) | payer OTHER, SELFPAY | END 2024-07-04 23:59 | disposition home or self-care (01) | LOC: SPT 08:23 | PROVIDERS: Visit Provider Family Medicine | DX: R26.9 Unspecified abnormalities of gait and mobility (principal) | CPT/HCPCS: 97161 ==

== ENCOUNTER 2024-07-05 06:00 | Outpatient (RCR) | payer OTHER, SELFPAY | END 2024-08-03 23:59 | disposition home or self-care (01) | LOC: SPT 06:00 | PROVIDERS: Visit Provider Family Medicine | DX: R26.9 Unspecified abnormalities of gait and mobility (principal) | CPT/HCPCS: 97110; 97112 ==

== ENCOUNTER 2024-08-04 06:00 | Outpatient (RCR) | payer OTHER, SELFPAY | END 2024-09-03 23:59 | disposition home or self-care (01) | LOC: SPT 06:00 | PROVIDERS: Visit Provider Family Medicine | DX: R26.89 Other abnormalities of gait and mobility (principal) | CPT/HCPCS: 97110; 97112 ==

== ENCOUNTER 2024-09-04 06:00 | Outpatient (RCR) | payer OTHER, SELFPAY | END 2024-10-04 23:59 | disposition home or self-care (01) | LOC: SPT 06:00 | PROVIDERS: PCP Family Medicine; Visit Provider Family Medicine | DX: R26.9 Unspecified abnormalities of gait and mobility (principal) | CPT/HCPCS: 97110 ==

== ENCOUNTER 2024-09-07 03:35 | Inpatient (IN) | payer OTHER, MEDICARE, SELFPAY ==
[2024-09-07] VITALS (80 sets, daily range): BP systolic 115–187; BP diastolic 64–121; PULSE 60–105; RESP 16–29; TEMP 36.4–36.7; O2SAT 88–100; BMI 28.1; BMI 26.3
[2024-09-07 04:40] LABS: Basophils # 0.1 10^3/uL (0.0-0.1); Basophils % 0.4 %; Eosinophils # 0.1 10^3/uL (0.0-0.8); Eosinophils % 0.6 %; Hematocrit 37.2 % (37-53); Lymphocytes % 6.1 %; Mean Corpuscular HGB Conc 31.7 g/dL (30-55); Mean Corpuscular Hemoglobin 29.4 pg (27-33); Mean Corpuscular Volume 92.5 fl (82-101); Monocytes # 0.8 10^3/uL (0.2-0.9); Monocytes % 4.9 %; Neutrophils # 13.85 10^3/uL (1.8-7.7); Neutrophils % 87.4 %; Nucleated Red Blood Cells % 0 %; Platelet Count 244 10^3/cmm (157-399); Red Blood Count 4.02 10^6/uL (3.85-5.65); Red Cell Distribution Width 15.1 % (12.1-15.1); White Blood Count 15.87 10^3/uL (3.29-11.43)
[2024-09-07 04:50] LABS: Alanine Aminotransferase 17 U/L (0-41); Albumin Level 4.2 g/dL (3.5-5.2); Alkaline Phosphatase 128 U/L (40-130); Aspartate Amino Transferase 16 U/L (0-40); Blood Urea Nitrogen 29 mg/dL (8-23); Calcium 10.1 mg/dL (8.5-10.5); Carbon Dioxide 29 mmol/L (22-29); Chloride 95 mmol/L (98-107); Creatinine Clr Calc Pharmacy 19.2023; Globulin 3.2 g/dL (1.3-4.6); Glucose 72 mg/dL (65-115); Osmolality Calculated 290 mOsm/kg (285-295); Sodium 138 mmol/L (136-145); Total Bilirubin 0.6 mg/dL (0.15-1.2); Total Protein 7.4 g/dL (6.6-8.7)
--- NOTE | 2024-09-07 05:06 | XRR_ITS ---
PROCEDURE INFORMATION: Exam: XR Chest Exam date and time: 09/07/2024 5:13 AM Age: 74 years old Clinical indication: Injury or trauma; Blunt trauma (contusions or hematomas); Prior surgery; Surgery date: 6+ months; Surgery type: Gb. Left nephrectomy; Patient HX: EMS arrival for fall at home. C/O left posterior rib pain. History of renal/bladder cancer. ; Additional info: Dizziness TECHNIQUE: Imaging protocol: Radiologic exam of the chest. Views: 2 views. COMPARISON: CR XR chest 1V portable [id number] 07/07/2022 7:46 AM FINDINGS: Tubes, catheters and devices: Right chest AICD. There are sternal wires consistent with previous sternotomy incision. Lungs: Left lower lobe atelectasis. Pleural spaces: Small left pleural effusion. Heart/Mediastinum: Unremarkable. No cardiomegaly. Vasculature: There are aortic arch calcifications. Bones/joints: There are mild degenerative changes of the glenohumeral joint. The thoracic spine demonstrates moderate degenerative changes at multiple levels. Suspicion of nondisplaced fracture of the lateral arch of the left 8th rib. XR/XR chest 2V* [id number] IMPRESSION: 1. Small left pleural effusion with left lower lobe atelectasis. 2. Suspicion of a nondisplaced fracture of the left 8th rib.
[2024-09-07 05:56] LABS: Bilirubin Urine Negative (Negative); Blood Urine Negative (Negative); Glucose Urine UA Negative (Normal); Ketones Urine Negative (Negative); Leukocyte Esterase Urine 2+ (Negative); Nitrate Urine Negative (Negative); Protein Urine 2+ (Negative); Specific Gravity, Urine 1.011 (1.005-1.030); Urine Appearance Turbid (CLEAR); Urine Color Yellow (Yellow); Urobilinogen Urine 0.2 mg/dL (Negative); pH Urine >=9.0 (5-7)
[2024-09-07 06:01] LABS: Add Urine Microscopic? YES; Bacteria Urine EXCEEDS /hpf; Hyaline Casts Urine 1.21 /lpf; RBC Urine 0-2 /hpf (0-2); Squamous Epithelial Cell Urine 0-5 /hpf (0-5); Universal Test for UA Present (0); WBC Urine >100 /hpf (0-5)
--- NOTE | 2024-09-07 06:07 | XRR_ITS ---
PROCEDURE INFORMATION: Exam: XR Left Ribs Exam date and time: 09/07/2024 6:30 AM Age: 74 years old Clinical indication: Injury or trauma; Rib area, left side; Blunt trauma; Prior surgery; Surgery date: 6+ months; Surgery type: Avr. Pacer; Patient HX: EMS arrival for fall at home. C/O left rib pain. TECHNIQUE: Imaging protocol: Radiologic exam of the left ribs. Views: 2 views. COMPARISON: CR (CHEST, ) 09/07/2024 5:13 AM FINDINGS: Tubes, catheters and devices: There are sternal wires consistent with previous sternotomy incision. Bones/joints: Nondisplaced fracture of the posterior arch of the 9th rib, lateral arch of the 8th rib posterior arch of the 10th rib. Moderate degenerative of the AC and glenohumeral joints. Lungs: There is left lower lobe atelectasis. Pleural space: There is a small left pleural effusion. Vasculature: There are aortic arch calcifications. Soft tissues: Normal. XR/XR ribs LT 2V* [id number] IMPRESSION: Nondisplaced fractures of the left 8th, 9th and 10th ribs. No pneumothorax.
--- NOTE | 2024-09-07 06:07 | XRR_ITS ---
PROCEDURE INFORMATION: Exam: XR Right Elbow Exam date and time: 09/07/2024 6:28 AM Age: 74 years old Clinical indication: Injury or trauma; Blunt trauma (contusions or hematomas); Right; Patient HX: EMS arrival for fall at home. C/O RT elbow pain. Skin tear to posterior aspect. TECHNIQUE: Imaging protocol: Radiologic exam of the right elbow. Views: 3 or more views. COMPARISON: No relevant prior studies available. FINDINGS: Bones/joints: Moderate degenerative disease of the elbow joint. Triceps enthesophytes. Corticated bone fragment around the lateral epicondyle, from prior injury. Soft tissues: Normal. Vasculature: There are vascular calcifications. XR/XR elbow RT min 3V* [id number] IMPRESSION: No acute fracture or dislocation.
--- NOTE | 2024-09-07 06:08 | ED_ITS ---
HPI - Fall 2 General: Chief Complaint: Fall Stated Complaint: FALL Time Seen by Provider: 09/07/24 06:02 History of Present Illness: -year-old male presents emergency room a fter a fall at home. At home twice. Patient previously had a stroke without difficulty of gait since. He is on hemodialysis. He previously had a nephrectomy and then his other kidney failed. We did receive his dialysis yesterday per routine. He frequently does get lightheaded dizzy and unsteady. He gotten up to walk to the bathroom and had a few steps and then fell and hit his left ribs and his right elbow when he fell he denies striking his head there was no loss of consciousness. No abdominal pain. He is complaining of mid back pain. Patient with a history of bladder for 2-year-old checkup with a cystoscopy 2 weeks ago he was treated with prophylactic antibiotics after the cystoscopy which she had completed Associated symptoms-after fall: Reports chest pain; Denies abdominal pain or neck pain Related Data Home Medications Medication Instructions Recorded Confirmed allopurinol 100 mg tablet 200 mg PO QPM 08/12/21 05/08/23 ascorbic acid (vitamin C) 500 mg 1,000 mg PO QPM 08/12/21 05/08/23 tablet cholecalciferol (vitamin D3) 50 50 mcg PO QPM 08/12/21 05/08/23 mcg (2,000 unit) capsule citalopram 40 mg tablet 20 mg PO QAM 08/12/21 05/08/23 colchicine 0.6 mg tablet (Colcrys) See Rx Instructions .Route .COMPLEX 08/12/21 05/08/23 insulin glargine 100 unit/mL (3 See Rx Instructions .Route .COMPLEX 08/12/21 05/08/23 mL) subcutaneous pen (Lantus Solostar U-100 Insulin) [id number] 3 cap PO TID 08/12/21 05/08/23 12,000-38,000-60,000 unit capsule,delayed rel (Creon) midodrine 5 mg tablet 5 mg PO TID 08/12/21 05/08/23 omeprazole 20 mg capsule,delayed 20 mg PO QAM 08/12/21 05/08/23 release simvastatin 80 mg tablet 40 mg PO QPM 08/12/21 05/08/23 tamsulosin 0.4 mg capsule 0.8 mg PO QPM 08/12/21 05/08/23 bupropion HCl 150 mg 24 hr tablet, 150 mg PO QAM 01/03/22 05/08/23 extended release insulin lispro 100 unit/mL See Rx Instructions .Route .COMPLEX 01/03/22 05/08/23 subcutaneous pen (Humalog KwikPen (U-100) Insulin) vitamin B comp no.3-folic acid 1 1 tab PO QAM 01/03/22 05/08/23 mg-vit C 60 mg-biotin 300 mcg tablet (Alexandra-Oliva Rx) sevelamer HCl 800 mg tablet 2,400 mg PO TID 06/14/22 05/08/23 sodium bicarbonate 650 mg tablet 650 mg PO TID 06/14/22 05/08/23 clopidogrel 75 mg tablet (Plavix) 75 mg PO DAILY@12 08/16/22 05/08/23 aspirin 81 mg tablet,delayed 81 mg PO QAM 05/08/23 05/08/23 release carvedilol 12.5 mg tablet 12.5 mg PO BID 05/08/23 05/08/23 Allergies Allergy/AdvReac Type Severity Reaction Status Date / Time No Known Allergies Allergy Verified 05/08/23 13:58 Review of Systems 2 Const: Denies: fever(s) or chills Card: Reports: chest pain Resp: Denies: dyspnea GI: Denies: abdominal pain : Denies: dysuria, urinary frequency or urinary urgency Musc: Denies: neck pain or back pain Skin/Breast: Denies: rash PFSH ED 2 PFSH: Medical History (Updated 09/07/24 @ 07:01 by Gomez Acuna DO) Bladder cancer BPH (benign prostatic hyperplasia) Gout Depression Anxiety Acute metabolic encephalopathy ESRD (end stage renal disease) ESRD on dialysis Flor-rectal abscess History of stroke 2009 Diabetes mellitus History of bladder cancer GERD (gastroesophageal reflux disease) History of colon polyps Surgical History History of appendectomy History of kidney removal left side History of cholecystectomy History of colonoscopy Family History Other CAD (coronary artery disease) Cancer Chronic kidney disease (CKD) Diabetes Lung disease Social History Smoking and tobacco/nicotine status: former use of tobacco/nicotine Alcohol intake: never Substance/Drug Use: never Physical Exam 2 Const: COMMON NORMALS: no acute distress GENERAL APPEARANCE: cooperative ORIENTATION/CONSCIOUSNESS: Yes awake, Yes oriented to person, Yes oriented to place and Yes oriented to time HENMT: COMMON NORMALS: normocephalic, atraumatic and hearing grossly normal bilaterally HEAD & SCALP: normocephalic and atraumatic Chest: OTHER: Left chest wall pain with palpation no crepitus no subcutaneous. No deformity or hematoma Resp: COMMON NORMALS: normal respiratory effort, No retractions, No use of accessory muscles and clear to auscultation bilaterally AUSCULTATION: clear to auscultation bilaterally Cardio: COMMON NORMALS: regular rate, regular rhythm and No murmurs present (Cardio) RATE: regular rate RHYTHM: regular rhythm GI: COMMON NORMALS: Soft to palpation and No hepatosplenomegaly present A USCULTATION: Yes normoactive bowel sounds PALPATION: Yes Soft to palpation, No Tenderness to palpation present (GI), No Guarding due to palpation present (GI) and Yes No hepatosplenomegaly present Extremity: COMMON NORMALS: normal to inspection, capillary refill normal, no clubbing, cyanosis or edema, no calf tenderness and no pedal edema Neuro: SENSORIUM/ORIENTATION: Yes oriented to person, Yes oriented to place and Yes oriented to time Skin: COMMON NORMALS: no rashes or lesions noted GENERAL SKIN EXAM: no rashes or lesions noted Course 2 Vital Signs: Vital signs: Vital Signs Temperature 97.5 F L 09/07/24 03:37 Pulse Rate 60 09/07/24 03:37 Respiratory Rate 20 H 09/07/24 03:37 Blood Pressure 115/64 09/07/24 03:37 Pulse Oximetry 98 09/07/24 03:37 MDM - Fall Medical Decision Making Patient has a left ninth rib fracture laterally. Additionally has leukocytosis with a cystitis suspect he has a pyelonephritis. No previous cultures to gauge outflow. Will start him on Zosyn. Admit to the hospitalist. Orders written. Medical Records I reviewed the patient's medical records. Lab Data I reviewed the patient's lab results. 09/07/24 03:23 09/07/24 03:23 Laboratory Results WBC 15.87 10^3/uL (3.29-11.43) H 09/07/24 03:23 RBC 4.02 10^6/uL (3.85-5.65) 09/07/24 03:23 Hgb 11.80 g/dL (11.27-16.99) 09/07/24 03:23 Hct 37.2 % (37-53) 09/07/24 03:23 MCV 92.5 fl (82-101) 09/07/24 03:23 MCH 29.4 pg (27-33) 09/07/24 03:23 MCHC 31.7 g/dL (30-55) 09/07/24 03:23 RDW 15.1 % (12.1-15.1) 09/07/24 03:23 Plt Count 244 10^3/cmm (157-399) 09/07/24 03:23 MPV 10.0 fL (7.4-10.4) 09/07/24 03:23 Neut % (Auto) 87.4 % 09/07/24 03:23 Lymph % (Auto) 6.1 % 09/07/24 03:23 [place] % (Auto) 4.9 % 09/07/24 03:23 Eos % (Auto) 0.6 % 09/07/24 03:23 Baso % (Auto) 0.4 % 09/07/24 03:23 Neut # (Auto) 13.85 10^3/uL (1.8-7.7) H 09/07/24 03:23 Lymph # (Auto) 1.0 10^3/uL (0.8-4.8) 09/07/24 03:23 [place] # (Auto) 0.8 10^3/uL (0.2-0.9) 09/07/24 03:23 Eos # (Auto) 0.1 10^3/uL (0.0-0.8) 09/07/24 03:23 Baso # (Auto) 0.1 10^3/uL (0.0-0.1) 09/07/24 03:23 Nucleated RBC % (auto) 0 % 09/07/24 03:23 Nucleated RBCs # 0.0 /100WBC 09/07/24 03:23 Sodium 138 mmol/L (136-145) 09/07/24 03:23 Potassium 5.0 mmol/L (3.5-5.1) 09/07/24 03:23 Chloride 95 mmol/L (98-107) L 09/07/24 03:23 Carbon Dioxide 29 mmol/L (22-29) 09/07/24 03:23 Anion Gap 19.0 (5-19) 09/07/24 03:23 BUN 29 mg/dL (8-23) H 09/07/24 03:23 Creatinine 3.4 mg/dL (0.7-1.2) H 09/07/24 03:23 GFR Calculation Not Reportable 09/07/24 03:23 Glucose 72 mg/dL (65-115) 09/07/24 03:23 Calculated Osmolality 290 mOsm/kg (285-295) 09/07/24 03:23 Calcium 10.1 mg/dL (8.5-10.5) 09/07/24 03:23 Total Bilirubin 0.6 mg/dL (0.15-1.2) 09/07/24 03:23 AST 16 U/L (0-40) 09/07/24 03:23 ALT 17 U/L (0-41) 09/07/24 03:23 Alkaline Phosphatase 128 U/L (40-130) 09/07/24 03:23 Total Protein 7.4 g/dL (6.6-8.7) 09/07/24 03:23 Albumin 4.2 g/dL (3.5-5.2) 09/07/24 03:23 Globulin 3.2 g/dL (1.3-4.6) 09/07/24 03:23 Urine Color Yellow (Yellow) 09/07/24 05:42 Urine Appearance Turbid (CLEAR) A 09/07/24 05:42 Urine pH >=9.0 (5-7) A 09/07/24 05:42 Ur Specific [place] 1.011 (1.005-1.030) 09/07/24 05:42 Urine Protein 2+ (Negative) A 09/07/24 05:42 Urine Glucose (UA) Negative (Normal) 09/07/24 05:42 Urine Ketones Negative (Negative) 09/07/24 05:42 Urine Blood Negative (Negative) 09/07/24 05:42 Urine Nitrate Negative (Negative) 09/07/24 05:42 Urine Bilirubin Negative (Negative) 09/07/24 05:42 Urine Urobilinogen 0.2 mg/dL (Negative) 09/07/24 05:42 Ur Leukocyte Esterase 2+ (Negative) A 09/07/24 05:42 Urine RBC 0-2 /hpf (0-2) 09/07/24 05:42 Urine WBC >100 /hpf (0-5) H 09/07/24 05:42 Ur Squamous Epith Cells 0-5 /hpf (0-5) 09/07/24 05:42 Amorphous Sediment Not Reportable 09/07/24 05:42 Urine Bacteria Exceeds /hpf (NONE) 09/07/24 05:42 Hyaline Casts 1.21 /lpf 09/07/24 05:42 All radiology interpretation(s) finalized by discharge Discharge Plan Discharge Patient Disposition: Admitted As Inpatient Clinical Impression: Acute pyelonephritis, Diabetes mellitus, Left rib fracture, End-stage renal disease on hemodialysis Condition: Stable Coding Level of Care Code ED Housekeeper Nanny for Joseph Manriquez
[2024-09-07 06:09] LABS: Add Urine Culture? Yes
--- NOTE | 2024-09-07 06:10 | CTR_ITS ---
PROCEDURE INFORMATION: Exam: CT Thoracic Spine Without Contrast Exam date and time: 09/07/2024 6:23 AM Age: 74 years old Clinical indication: Injury or trauma; Blunt trauma (contusions or hematomas); Prior surgery; Surgery date: 6+ months; Surgery type: Pacer. Avr. Gb. Left nephrectomy. Patient HX: EMS arrival for fall at home. C/O upper and lower back pain. History of renal/bladder cancer. TECHNIQUE: Imaging protocol: Computed tomography of the thoracic spine without contrast. Radiation optimization: All CT scans at this facility use at least one of these dose optimization techniques: automated exposure control; mA and/or kV adjustment per patient size (includes targeted exams where dose is matched to clinical indication); or iterative reconstruction. COMPARISON: CT angio abd aorta runof [id number] 07/07/2022 8:06 AM RADIATION DOSE METRICS: Total DLP (mGy-cm): 754.11 FINDINGS: Tubes, catheters and devices: AICD device in the right chest wall. Bones/joints: Nondisplaced fracture of the posterior arch of the left 10th, posterior arch of the left 11th and posterior arch of the left 12th rib. The thoracic spine demonstrates mild degenerative changes at multiple levels. Mild sagging of the upper endplate of T3. Soft tissues: Unremarkable. Vasculature: Calcified atheromas of the visualized arteries. Lungs: Bilateral lower lobe atelectasis. Pleural spaces: There is a left pleural effusion. Coronary arteries: There is moderate atherosclerotic calcification of the coronary arteries. Kidneys and ureters: Post left nephrectomy. 1.5 cm cyst in the right kidney. CT/CT thoracic spin wo con* [id number] IMPRESSION: 1. Nondisplaced fracture of the posterior arches of the left 10th, 11th and 12th ribs. 2. Small left pleural effusion with left lower lobe atelectasis. 3. Age indeterminate mild compression fracture of the T3 vertebral body to be correlated with point tenderness.
--- NOTE | 2024-09-07 06:10 | CTR_ITS ---
PROCEDURE INFORMATION: Exam: CT Lumbar Spine Without Contrast Exam date and time: 09/07/2024 6:25 AM Age: 74 years old Clinical indication: Injury or trauma; Blunt trauma (contusions or hematomas); Prior surgery; Surgery date: 6+ months; Surgery type: Left nephrectomy. Appy. Patient HX: EMS arrival for fall at home. C/O upper and lower back pain. History of renal/bladder cancer. TECHNIQUE: Imaging protocol: Computed tomography of the lumbar spine without contrast. Radiation optimization: All CT scans at this facility use at least one of these dose optimization techniques: automated exposure control; mA and/or kV adjustment per patient size (includes targeted exams where dose is matched to clinical indication); or iterative reconstruction. COMPARISON: CT thoracic spin wo con* [id number] 09/07/2024 6:23 AM RADIATION DOSE METRICS: Total DLP (mGy-cm): 572.13 FINDINGS: Bones/joints: Demineralization of the visualized bones, limiting sensitivity for nondisplaced fractures. There are mild degenerative changes of the sacroiliac joints. Bilateral L4-L5 facet joint arthropathy with mild anterolisthesis of L4 over L5. Mild bony canal stenosis. Posterior osteophyte disc complex at L3-L4 with mild bony canal stenosis posterior osteophyte disc complex at L5-S1 with mild bony canal stenosis. Moderate degenerative disease of the lumbar spine with moderate stenosis of the right L5-S1 neural foramen. Severe narrowing of bilateral L4-L5 and bilateral L3-L4 neural foramina. Kidneys and ureters: Post left nephrectomy. Hypodense right renal lesions, some of which represent cysts that needs follow-up with ultrasound. 2 mm nonobstructing stone in the interpolar region of the right kidney. Vasculature: Calcified atheromas of the visualized arteries. Soft tissues: Unremarkable. CT/CT lumbar spine wo con* [id number] IMPRESSION: No acute fracture or dislocation. COMMENTS: Consistent with the [employer]'s Incidental Findings Committee white paper (J Am Isauro Radiol 2018): Any incidental renal lesion less than 1 cm or classified as too small to characterize, or any incidental cystic renal lesion characterized as simple-appearing, is likely benign. No follow-up imaging is recommended for these lesions per consensus recommendations based on imaging criteria.
--- NOTE | 2024-09-07 06:16 | ECG_ITS ---
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 Measurements Intervals [place] Rate: 60 P: 45 HI: 134 QRS: 7 QRSD: 110 T: 77 QT: 488 QTc: 489 Interpretive Statements SINUS RHYTHM MINIMAL VOLTAGE CRITERIA FOR LVH, CONSIDER NORMAL VARIANT [MEETS CRITERIA IN ONE OF: R(aVL), S(V1), R(V5), R(V5/V6)+S(V1)] NONSPECIFIC T-WAVE ABNORMALITY PROLONGED QT INTERVAL Compared to ECG 05/08/2023 13:08:46 Prolonged QT interval now present Atrial fibrillation no longer present T-wave abnormality still present Electronically Signed On 09-07-2024 21:26:20 SURGICAL CLINICAL REVIEWER by Blaise Smith M.D. [email or web address]
[2024-09-07 07:24] LABS: Lactic Sepsis W/Reflex 1.4 mmol/L (0.5-2.2)
--- NOTE | 2024-09-07 07:26 | PC.NURSE ---
pt antibiotics delayed d/t needing blood cultures obtained
--- NOTE | 2024-09-07 07:26 | PC.NURSE ---
this patient assumed care at approx @8296
--- NOTE | 2024-09-07 07:46 | P.HP_ITS ---
Providers/Chief Complaint 2 Admitting Physician: José Gan MD Primary Care Provider: Annmarie Jacobson MD Chief Complaint: FALL History of Present Illness Alonso Delgado is a 74 year old male with history of end-stage renal disease, secondary to nephrectomy, bladder cancer in remission, recent cystoscopy 08/18, recurrent falls, diabetes with nephropathy, presented with chief complaint of recurrent falls. Workup in the ER revealed concern related to UTI or pyelonephritis. Patient has been given Zosyn in the ER. He has significant leukocytosis. He has not noticed any fever, nausea or vomiting but stating that he has fallen in the bathroom yesterday and same thing happened today that prompted his visit in the ER. He does have left-sided rib fracture. His last session of dialysis was on Monday. He gets Monday. Patient still makes urine, he only has 1 kidney/right sided. Patient is stating that he always has balance issues, his recurrent falls are not new for him. Never had any syncopal event. Review of Systems 2 Const: Denies: fever(s) Eyes: Denies: change in vision ENMT: Denies: throat pain Card: Denies: chest pain Resp: Reports: dyspnea GI: Denies: abdominal pain Medications/Allergies Home Medications Medication Instructions Recorded Confirmed Last Taken Type allopurinol 100 mg tablet 200 mg PO QPM 08/12/21 09/07/24 09/05/24 History ascorbic acid (vitamin C) 500 mg 1,000 mg PO QPM 08/12/21 09/07/24 09/05/24 History tablet cholecalciferol (vitamin D3) 50 50 mcg PO QPM 08/12/21 09/07/24 09/05/24 History mcg (2,000 unit) capsule colchicine 0.6 mg tablet (Colcrys) See Rx Instructions .Route .COMPLEX 08/12/21 05/08/23 07/29/22 History insulin glargine 100 unit/mL (3 See Rx Instructions .Route .COMPLEX 08/12/21 05/08/23 07/28/22 History mL) subcutaneous pen (Lantus Solostar U-100 Insulin) [id number]-[id number]-[id number] 3 cap PO TID 08/12/21 05/08/23 05/08/23 History 12,000-38,000-60,000 unit capsule,delayed rel (Creon) midodrine 5 mg tablet 5 mg PO TID 08/12/21 05/08/23 05/08/23 05:00 History omeprazole 20 mg capsule,delayed 20 mg PO QAM 08/12/21 05/08/23 05/08/23 History release simvastatin 80 mg tablet 40 mg PO QPM 08/12/21 05/08/23 05/07/23 History tamsulosin 0.4 mg capsule 0.8 mg PO QPM 08/12/21 05/08/23 05/07/23 History insulin lispro 100 unit/mL See Rx Instructions .Route .COMPLEX 01/03/22 05/08/23 07/29/22 History subcutaneous pen (Humalog KwikPen (U-100) Insulin) vitamin B comp no.3-folic acid 1 1 tab PO QAM 01/03/22 05/08/23 07/29/22 History mg-vit C 60 mg-biotin 300 mcg tablet (Alexandra-Oliva Rx) sevelamer HCl 800 mg tablet 2,400 mg PO TID 06/14/22 05/08/23 05/08/23 History sodium bicarbonate 650 mg tablet 650 mg PO TID 06/14/22 05/08/23 05/08/23 05:00 History aspirin 81 mg tablet,delayed 81 mg PO QAM 05/08/23 09/07/24 09/06/24 History release carvedilol 12.5 mg tablet 12.5 mg PO BID 05/08/23 09/07/24 09/06/24 08:00 History bupropion HCl 300 mg 24 hr tablet, 300 mg PO QAM 09/07/24 09/07/24 09/06/24 History extended release Allergies Allergy/AdvReac Type Severity Reaction Status Date / Time No Known Allergies Allergy Verified 05/08/23 13:58 PFSH Acute 2 PFSH: Medical History Bladder cancer BPH (benign prostatic hyperplasia) Gout Depression Anxiety Acute metabolic encephalopathy ESRD (end stage renal disease) ESRD on dialysis Flor-rectal abscess History of stroke 2010 Diabetes mellitus History of bladder cancer GERD (gastroesophageal reflux disease) History of colon polyps Surgical History History of appendectomy History of kidney removal left side History of cholecystectomy History of colonoscopy Family History Other CAD (coronary artery disease) Cancer Chronic kidney disease (CKD) Diabetes Lung disease Social History Smoking and tobacco/nicotine status: former use of tobacco/nicotine Alcohol intake: never Substance/Drug Use: never Vitals/I&O/Wt Last Vital Signs Temp 97.5 F L 09/07/24 03:37 Pulse 60 09/07/24 03:37 Resp 20 H 09/07/24 03:37 BP 115/64 09/07/24 03:37 Pulse Ox 98 09/07/24 03:37 09/06/24 09/07/24 09/07/24 22:59 06:59 14:59 Intake Total 0 / 0 Balance 0 / 0 Weight last 48 hrs Weight 81.647 kg Physical Exam 2 Narrative: Clinical signs of dehydration GCS 15 Nons active focal deficit S1, S2 Pale complexion Currently on room air Hemodynamic stable No active distress at the bedside Lower extremity no significant edema Data 09/07/24 03:23 09/07/24 03:23 Micro: Microbiology 09/07/24 06:57 Blood Culture - Preliminary Blood SPECIMEN COLLECTED 09/07/24 06:55 Blood Culture - Preliminary Blood SPECIMEN COLLECTED A&P Assessment and plan (1) Diabetes mellitus: (2) End-stage renal disease on hemodialysis: (3) Acute pyelonephritis: (4) Left rib fracture: Plan UTI/pyelonephritis I will start patient on ceftriaxone discontinue Zosyn Afebrile, no active nausea vomiting Patient endorsed to episode of vomiting last 48 hours stating that he does get random episodes of emesis without any association with food no previous history of gastroparesis no cyclical vomiting No active fever Patient still makes urine Monday/end-stage renal disease Will consult nephrology for Monday if patient ends up staying until then 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 Patient is describing his falls related to dizziness and he describes dizziness as room spinning around him Monitor for BPPV, vestibular rehab? Renal diet/consistent carb Insulin sliding scale DVT prophylaxis: Heparin Attestations 2 Medical Necessity Statement*: Anticipating discharge within 48 hours if white count trending down Diagnoses Diabetes mellitus E11.9 End-stage renal disease on hemodialysis N18.6; Z99.2 Acute pyelonephritis N10 Left rib fracture S22.32XA
[2024-09-07] MEDS: piperacillin-tazobactam 3.375 GM in sodium chloride 0.9% (plus) 50 ML IV (07:59)
--- NOTE | 2024-09-07 09:22 | USCV_ITS ---
DelgadoAlonso kemp Age: 74 Gender: M : 1950 Exam Date: 09/07/2024 13:37 Ordering Phys: José Gan MD Technologist: Raghu Melton Exam Location: [facility] Indication: falls BP: 173 / 96 HR: 80 Rhythm: Sinus Technical Quality: Adequate MEASUREMENTS (Male / Female) Normal Values 2D ECHO LV Diastolic Diameter PLAX 6.3 cm 4.2 - 5.9 / 3.9 - 5.3 cm IVS Diastolic Thickness 1.3 cm 0.6 - 1.0 / 0.6 - 0.9 cm IVS Systolic Thickness 1.8 cm LVPW Diastolic Thickness 1.7 cm 0.6 - 1.0 / 0.6 - 0.9 cm LVPW Systolic Thickness 1.7 cm LVOT Diameter 2.2 cm LV Ejection Fraction 2D Teich 63.0 % LV Ejection Fraction MOD 4C 45.8 % LV Ejection Fraction MOD 2C 47.7 % LV Ejection Fraction 2C AL 50.1 % LA Diameter 4.8 cm RA Systolic Volume 4C AL 47.9 ml RA Systolic Volume 4C MOD 48.7 ml LA Sys Volume AL 80.1 cm cubed LA Sys Volume Index AL 40.4 cm cubed/m squared Aorta at Sinotubular Diameter 2.6 cm M-MODE LA Ao Ratio MM 2.0 AV Cusp Separation MM 1.6 cm DOPPLER AV Peak Velocity 188.0 cm/s LVOT Peak Velocity 69.0 cm/s AV Area Cont Eq vti 1.6 cm squared AV Area Cont Eq pk 1.4 cm squared MV Peak Velocity 113.0 cm/s MV Area PHT 6.9 cm squared Mitral E to A Ratio 0.9 TV Peak Velocity 358.0 cm/s TR Peak Velocity 359.0 cm/s TR Peak Gradient 51.6 mmHg TR Mean Velocity 300.0 cm/s TR Mean Gradient 37.9 mmHg TR Velocity Time Integral 86.0 cm PV Peak Velocity 85.0 cm/s RV Ejection Time 0.3 s FINDINGS Left Ventricle Normal left ventricular size and systolic function, EF 50%. Mild diffuse hypokinesia of the septum moderate hypokinesia of the basal inferior wall segment. Mild to moderate concentric left-ventricular hypertrophy.Grade I/IV diastolic dysfunction (abnormal relaxation filling pattern), normal to mildly elevated filling pressures. Right Ventricle Catheter/pacemaker wire in the right ventricular cavity. Right Atrium Catheter/pacemaker wire in the right atrial appendage. Left Atrium The left atrium is normal in size. Mitral Valve Thickened mitral valve. Moderate mitral annular calcification. Mild mitral valve regurgitation. Aortic Valve Thickened aortic valve. Aortic valve sclerosis. Tricuspid Valve Trace tricuspid valve regurgitation. Estimated pulmonary artery peak systolic pressure 41 mmHg Pulmonic Valve Pulmonic valve not well visualized. Pericardium No pericardial effusion. Aorta Normal aortic annulus size. IVC Inferior vena cava not visualized. CONCLUSIONS Normal left ventricular size and systolic function, EF 50%. Mild diffuse hypokinesia of the septum moderate hypokinesia of the basal inferior wall segment. Mild to moderate concentric left-ventricular hypertrophy.Grade I/IV diastolic dysfunction (abnormal relaxation filling pattern), normal to mildly elevated filling pressures. Thickened mitral valve. Moderate mitral annular calcification. Mild mitral valve regurgitation. Thickened aortic valve. Aortic valve sclerosis. Trace tricuspid valve regurgitation. Estimated pulmonary artery peak systolic pressure 41 mmHg. There is no pericardial effusion. There are no intracardiac masses. Pacemaker wire was noted in the right atrium and right ventricle No similar previous studies are available for comparison Dr Blaise Smith MD [facility] (Electronically Signed) Final Date: 07 September 2024 19:31 S
[2024-09-07 09:40] LABS: Estmated Average Glucose 140; Hemoglobin A1C 6.5 % (4.0-6.0)
[2024-09-07 09:45] LABS: Glucose Point of Care 135 mg/dL (70-110)
[2024-09-07] MEDS: lipase-protease-amylase Capsule 3 EACH PO ×3 (09:57→18:03)
[2024-09-07] MEDS: sevelamer 800 mg Tablet 2400 MG PO ×3 (09:57→18:03)
[2024-09-07 10:03] LABS: Vitamin B12 864 pg/mL (232-1245)
[2024-09-07] MEDS: cefTRIAXone 1,000 mg SDV 1000 MG IVP (10:40)
[2024-09-07] MEDS: heparin 5,000 unit/mL INJ 1 mL 5000 UNIT SUBCUT ×2 (10:40→20:27)
--- OUTSIDE RECORDS SUMMARY | 2024-09-07 10:49 | XMS_ITS ---
Author Name [facility] [place] [facility] [place] Address [address] [place] [address] Care Team Providers Care Plate And Weld Inspector Name Role Phone DRE ALEX Primary Care Provider Unavailabl e Insurance Providers: All historical and current Section Date Range: From patient's date of to the date document was created. This section includes the names of all active insurance providers for the patient. Insurance Provider Type of Coverage Plan Name Start of Policy Coverage End of Policy Coverage Group Number Member ID Insurance Provider's Telephone Number Policy Rose's Name Patient's Relationship to Policy Rose MEDICARE (WNR) MEDICARE (M) PART A Mar 04, 2012 PART A [id number] LEONARD LEWIS PATIENT MEDICARE (WNR) MEDICARE (M) PART B Mar 04, 2012 PART B [id number] LEONARD LEWIS PATIENT MEDICARE (WNR) MEDICARE (M) PART A Mar 04, 2012 PART A [id number] [phone] LEONARD LEWIS PATIENT MEDICARE (WNR) MEDICARE (M) PART B Mar 04, 2012 PART B [id number] LEONARD LEWIS PATIENT MEDICARE (WNR) MEDICARE (M) PART B Mar 04, 2012 PART B [id number] LEONARD LEWIS PATIENT MEDICARE (WNR) MEDICARE (M) PART A Mar 04, 2012 PART A [id number] [phone] LEONARD LEWIS PATIENT -FO R-LIFE [facility] FOR LIFE WNR Aug 31, 2016 FOR LIFE [id number] [phone] LEONARD LEWIS PATIENT -FO R-LIFE [facility] FOR LIFE WNR Aug 31, 2016 FOR LIFE [id number] LEONARD LEWIS PATIENT Selected Encounter This section includes the information on record at [place] for the Encounter. Date/Time Encounter Type Encounter Description Reason Pro vider Source Oct 09, 2023 02:52 PM Outpatient Encounter ADMIN PAT ACTIVTIES (MASNONCT) IHE Encounter Template Text not used by [place] Plan of Treatment: Future Appointments (+ 6 months) and Future Tests (+/- 45 days) The Plan of Treatment section includes future care activities for the patient from all [place] treatmentfacilities. This section includes future appointments and future orders which are active, pending or scheduled. Future Appointments This section includes appointments that were scheduled to occur 6 months from the date of the Encounter, up to a maximum of 20 appointments. The data comes from all [place] treatment facilities. Appointment Date/Time Appointment Type Appointme nt Facility Name Oct 10, 2023 12:45 PM AMBULATORY - MEDICINE [facility] Oct 31, 2023 01:15 PM AMBULATORY - NONE [facility] Dec 12, 2023 09:40 AM AMBULATORY - MEDICINE [facility] Dec 26, 2023 01:15 PM [facility]ULATORY - MEDICINE [facility] Dec 26, 2023 01:16 PM AMBULATORY - MEDICINE [facility] January 27, 2024 10:30 AM AMBULATORY - MEDICINE [facility] January 30, 2024 12:00 PM AMBULATORY - NONE [facility] January 30, 2024 02:30 PM AMBULATORY - MEDICINE [facility] Mar 05, 2024 12:00 PM AMBULATORY - MEDICINE [facility] Mar 12, 2024 03:30 PM [facility]ULATORY - MEDICINE [facility] Mar 12, 2024 03:31 PM AMBULATORY - MEDICINE [facility] Mar 14, 2024 08:30 AM AMBULATORY - MEDICINE [facility] Advance Directives: All historical and current Section Date Range: From patient's date of to the date document was created. This section includes ALL of a patient's completed or amended VA Advance and Rescinded Directives. The entries below indicate that a directive exists for the patient, but an actual copy is not included with this document. The data comes from all [place] facilities. Date Advance Directives Provider Source May 07, 2014 ADVANCE DIRECTIVE JUAN GILLETTE [facility] Radiology Reports: +/- 30 days of the encounter Radiology Reports For cases when an order for radiology services may have been completed prior to the date of the Encounter, the report list includes the Radiology Reports that were completed up to 30 days before dateof the Encounter. For cases when an order for radiology services may have been completed after the date of the Encounter, the report list also includes the Radiology Reports that were completed up to30 days after date of the Encounter. The data comes from all [place] treatment facilities. Date/Time Radiology Report Provider Source Oct 31, 2023 12:18 PM LDCT LUNG CANCER SCREENING: LEONARD LEWIS [id number] -1950 M Exm Date: OCT 31, 2023@12:18 Req Phys: BRIAN NEWMAN Pat Loc: PB-PHONE LUNG SCREEN (Req'g Lo Img Loc: PB-CT IMAGING Service: Unknown (Case [id number] COMPLETE) LDCT LUNG CANCER SCREENING (CT Detailed) CPT:99394 Reason for Study: no lung nodules- [facility] ldct Clinical History: negative ct thorax 10/27. annual ldct Report Status: Verified Date Reported: NOV 01, 2023 Date Verified: NOV 01, 2023 Clinical Allergist E-Sig: Report: EXAM: LDCT LUNG CANCER SCREENING ADDITIONAL HISTORY: Annual Screening COMPARISON: CT chest 13 October 2022 PROTOCOL: Screening protocol, low dose, non-contrast CT chest was performed at the local [place] facility in accordance with Lung-Rads 2021. Additional coronal and sagittal reconstructions. MIP reconstructions were reviewed. 2098 images were received by the [place] National Teleradiology Program (NTP) for interpretation. RADIATION DOSE: CTDI(vol): 2.8 mGy DLP: 106.8 mGy*cm INDEX NODULE: No suspicious pulmonary nodule. OTHER NODULES: There is a new triangular noncalcified nodule in the left upper lobe series 4 image 82. There is a new 3.3 mm calcified nodule in the posterior lateral left upper lobe series 4 image 104. LUNG/AIRWAY FINDINGS: There is marked volume loss in the left lower lobe. This large area of consolidation in the posterior lateral left lower lobe. There is marked thickening of the bronchi proximal to this region. There is moderate adjacent left pleural effusion which may be loculated. There is a small amount of atelectasis in the lateral inferior left lower lobe. EMPHYSEMA: None HEART, MEDIASTINUM AND LYMPH NODES: There has been interval sternal splitting surgery for coronary artery bypass. There is interval placement of a right sided pacing device with leads extending into the right ventricle. VISUAL CORONARY ARTERY CALCIFICATIONS: Severe UPPER ABDOMEN: The left adrenal gland and left kidney are not visualized. Patient is status post left nephrectomy and adrenalectomy.. BONES, SOFT TISSUES, AND ADDITIONAL FINDINGS: Mild degenerative disc disease. Impression: LUNG-RADS: 0: Incomplete. Marked volume loss with atelectasis and effusion in the left lower lobe and mild atelectasis or scarring in the left upper lobe. Patient has had interval coronary artery bypass surgery and this all may be postoperative. However the left lower lobe cannot be evaluated. Patient does have 2 new left upper lobe nodules.. RECOMMENDATION: [address] follow-up. LUNG-RADS MODIFIER: N/A. READING PHYSICIAN: Guy Kovacs MD -[id number] 11/01/2023 13:20 [facility] National Teleradiology Program [phone] (For Medical Practitioner Use Only) Attention Patients / Veterans: If you have questions or concerns about these test results, please contact your ordering provider or primary care team. Primary Interpreting Staff: RADIOLOGY,OUTSIDE SERVICE, Staff Physician / RADIOLOGY,OUTSIDE SERVICE RICARDO MARQUEZ [facility] Encounter Notes: All associated encounter notes This section contains the clinical notes associated to the Encounter. Date/Time Encounter Note(s) Provider Source Oct 09, 2023 02:52 PM ADMINISTRATIVE NOT E: LOCAL TITLE: ADMINISTRATIVE NOTE PB STANDARD TITLE: ADMINISTRATIVE NOTE DATE OF NOTE: OCT 09, 2023@14:52 ENTRY DATE: OCT 09, 2023@14:52:59 AUTHOR: NOEMI BRADY EXP COSIGNER: URGENCY: STATUS: COMPLETED CALLED PT A REMINDER FOR EYE APPT. LEFT . /sepideh/ PARRISH Woods [facility] Signed: 10/09/2023 14:53 NOEMI BRADY [facility]
--- OUTSIDE RECORDS SUMMARY | 2024-09-07 10:49 | XMS_ITS | Encounter Summary ---
Author Name [facility] [place] Address [address] [place] [id number] Care Team Providers Care Retail Business Manager Name Role Phone DRE ALEX Primary Care [...] Policy Rose MEDICARE (WNR) MEDICARE (M) PART B Mar 04, 2012 PART B [id number] [phone] DO JOSHUAYLE PATIENT MEDICARE (WNR) MEDICARE (M) PART A Mar 04, 2012 PART A [id number] [phone] LEONARD LEWIS PATIENT MEDICARE (WNR) MEDICARE (M) PART A Mar 04, 2012 PART A [id number] DO JOSHUAYLE PATIENT MEDICARE (WNR) MEDICARE (M) PART B Mar 04, 2012 PART B [id number] LEONARD LEWIS PATIENT MEDICARE (WNR) MEDICARE (M) PART A Mar 04, 2012 PART A [id number] LEONARD LEWIS PATIENT MEDICARE (WNR) MEDICARE (M) PART B Mar 04, 2012 PART B [id number] LEONARD LEWIS PATIENT -FO R-LIFE [facility] RE FOR LIFE WNR Aug 31, 2016 FOR LIFE [id number] [phone] LEONARD LEWIS PATIENT -FO R-LIFE [facility] FOR LIFE WNR Aug 31, 2016 FOR LIFE [id number] [phone] LEONARD LEWIS PATIENT Selected Encounter This section includes the information on record at [place] for the Encounter. Date/Time Encounter Type Encounter Description Reason Provider Source Oct 10, 2023 12:45 PM COMPRE OPH EXAM EST PT 1/> OPTOMETRY ICD-10-CM H53.19 Other subjective visual disturbances PABLO,FRED S IHE Encounter Template Text not used by [place] Assessments - Encounter Diagnoses This section includes the primary and secondary diagnoses documented for the Encounter. Date/Time Primary/Secondary Diagnosis Diagnosis Name Provider Source Oct 10, 2023 12:58 PM PRIMARY Other subjective visual disturbances PABLO,FRED S [facility] Oct 10, 2023 12:58 PM SECONDARY Hypermetropia, bilateral PABLO,FRED S [facility] Oct 10, 2023 12:58 PM SECONDARY Presbyopia PABLO,FRED S [facility] Oct 10, 2023 12:58 PM SECONDARY Regular astigmatism, bilateral PABLO,FRED S [facility] Plan of Treatment: Future Appointments (+ 6 months) and Future Tests (+/- 45 days) The Plan of Treatment section includes future care activities for the patient from all [place] treatmentfacilities. This section includes future appointments and future orders which are active, pending or scheduled. Future Appointments This section includes appointments that were scheduled to occur 6 months from the date of the Encounter, up to a maximum of 20 appointments. The data comes from all [place] treatment facilities. Appointment Date/Time Appointment Type Appointme nt Facility Name Oct 31, 2023 01:15 PM AMBULATORY - NONE [facility] Dec 12, 2023 09:40 AM AMBULATORY - MEDICINE [facility] Dec 26, 2023 01:15 PM [facility] Dec 26, 2023 01:16 PM [facility] January 27, 2024 10:30 AM AMBULATORY - MEDICINE [facility] January 30, 2024 12:00 PM AMBULATORY - NONE [facility] January 30, 2024 02:30 PM AMBULATORY - MEDICINE [facility] Mar 05, 2024 12:00 PM AMBULATORY - MEDICINE [facility] Mar 12, 2024 03:30 PM [facility] Mar 12, 2024 03:31 PM [facility]UL[facility]ORY - MEDICINE [facility] Mar 14, 2024 08:30 AM AMBULATORY - MEDICINE [facility] Apr 09, 2024 12:00 PM AMBULATORY - MEDICINE [facility] Social History: Smoking Status (Most current) and Tobacco Use (All prior to encounter date) This section includes the most current, and the historical, smoking and tobacco- related health factors from the [place] facility where the Encounter took place. Current Smoking Status This section includes the most current smoking, or tobacco-related health factor, from the [place] facility where the Encounter took place. Date/Time Current Smoking Status Comment Facil ity Jun 15, 2011 02:49 PM TOBACCO OFFERED PT MEDS (PROVIDE R) [facility] Tobacco Use History This section includes a history of the smoking, or tobacco-related health factors, that were collected on or before the date of the Encounter. The data comes from the [place] facility where the Encounter took place. Date/Time Smoking Status/Tobacco Use Comment F acility Jun 15, 2011 02:49 PM TOBACCO OFFERED PT MEDS (PROVIDE R) [facility] Jun 15, 2011 02:[address] [facility] Advance Directives: All historical and current Section Date Range: From patient's date of to the date document was created. This section includes ALL of a patient's completed or amended VA Advance and Rescinded Directives. The entries below indicate that a directive exists for the patient, but an actual copy is not included with this document. The data comes from all [place] facilities. Date Advance Directives Provider Source May 07, 2014 ADVANCE DIRECTIVE JUAN GILLETTE [facility] [facility] Radiology Reports: +/- 30 days of [...] the Encounter. The data comes from all [place] treatment facilities. Date/Time Radiology Report Provider Source Oct 31, 2023 12:18 PM LDCT LUNG CANCER SCREENING: LEWISLEONARD FIGUEROAA [id number] -1950 M Exm Date: OCT 31, 2023@12:18 Req Phys: BRIAN NEWMAN Pat Loc: PB-PHONE LUNG SCREEN (Req'g Lo Img Loc: PB-CT IMAGING Service: Unknown (Case [id number] COMPLETE) LDCT LUNG CANCER SCREENING (CT Detailed) CPT:21530 Reason for Study: no lung nodules- [facility] ldct Clinical History: negative ct thorax 10/27. annual ldct Report Status: Verified Date Reported: NOV 01, 2023 Date Verified: NOV 01, 2023 Wire Rope Sling Maker E-Sig: Report: EXAM: LDCT LUNG CANCER SCREENING ADDITIONAL HISTORY: Annual Screening COMPARISON: CT chest 13 October 2022 PROTOCOL: Screening protocol, low dose, non-contrast CT chest was performed at the local [place] facility in accordance with Lung-Rads 2. Additional coronal and sagittal reconstructions. MIP reconstructions were reviewed. 8 images were received by the [place] National Teleradiology Program (NTP) for interpretation. RADIATION [...] MODIFIER: N/A. READING PHYSICIAN: Guy Kovacs MD -[id number] 11/01/2023 13:20 [facility] National Teleradiology Program [phone] (For Medical Practitioner Use Only) Attention Patients / Veterans: If you have questions or concerns about these test results, please contact your ordering provider or primary care team. Primary Interpreting Staff: RADIOLOGY,OUTSIDE SERVICE, Staff Physician / RADIOLOGY,OUTSIDE SERVICE [facility] Encounter Notes: All associated encounter notes This section contains the clinical notes associated to the Encounter. Date/Time Encounter Note(s) Provider Source Oct 10, 2023 12:58 PM OPTOMETRY CONSULT: LOCAL TITLE: OPTOMETRY CONSULTS STANDARD TITLE: OPTOMETRY CONSULT DATE OF NOTE: OCT 10, 2023@12:58 ENTRY DATE: OCT 10, 2023@12:58:26 AUTHOR: FRED PABLO EXP COSIGNER: URGENCY: STATUS: COMPLETED HVF 24-2 Today to monitor for changes OD 1. Reliability:poor 2. Analysis:scattered defects 3: Comparison with Previous:stable 4. MD:-4.56 5. VFI:91% OS 1. Reliability:good 2. Analysis:sup and temp defect 3: Comparison with Previous:slightly worsening 4. MD:-6.73 5. VFI:87% Mean Deviation: 0 to -2 (normal), -2 to -6 (mild glaucoma), -6 to -12 (moderate glaucoma), MD is helpful at this stage, <-12 (advanced glaucoma) The VFI represents the entire visual field as a singel percentage of normal, 100% is normal, 0% is perimetrically blind. /sepideh/ Fred Pablo, CARLOS Zinc Skimmer, [facility] Signed: 10/10/2023 12:58 FRED PABLO [facility] Oct 10, 2023 12:23 PM OPHTHALMOLOGY E & M NOTE: LOCAL TITLE: OPHTHALMIC EXAM PB STANDARD TITLE: OPHTHALMOLOGY E & M NOTE DATE OF NOTE: OCT 10, 2023@12:23 ENTRY DATE: OCT 10, 2023@12:23:49 AUTHOR: LEONIDES ENRIQUEZ EXP COSIGNER: URGENCY: STATUS: COMPLETED SUBJECTIVE: 73 year old seen in clinic. CHIEF COMPLAINT: f/u. glasses from last exam here. Last eye exam: 04/11/23 here 04/26 dfe Surgery: none since laast exam here Eye medications: none Lab: Hgb A1C: HGA1C 6.8 H % 05/23/2023 09:15 Diabetic: 2016 iddm type2 ALLERGIES: Patient has answered NKA VISUAL ACUITY OD: 20/25-1 ph: 20-1 OS: 20/30-1 ph: 25-0 With present glasses pupils rapd - WEARING +0.25-1.87o552 +1.25-1.76v838 +2.50 Lens Type: Progressive Hvf 24-2 obtained today ou /sepideh/ LEONIDES ENRIQUEZ [place] Signed: 10/10/2023 12:32 LEONIDES ENRIQUEZ [facility] Oct 10, 2023 07:40 AM OPHTHALMOLOGY E & M NOTE: LOCAL TITLE: OPHTHALMIC EXAM PB STANDARD TITLE: OPHTHALMOLOGY E & M NOTE DATE OF NOTE: OCT 10, 2023@07:40 ENTRY DATE: OCT 10, 2023@07:40:09 AUTHOR: FRED PABLO EXP COSIGNER: URGENCY: STATUS: COMPLETED SUBJECTIVE: 73 year old seen in clinic. CHIEF COMPLAINT: f/u. glasses from last exam here. 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 He reports no change in the symptoms and feels everything is stable OHX: JUAN:as above Hab RX:as above LDFE:04/26 Injuries:- Surgeries:- Oc Meds:+art tears Glc:- DR:- AMD:- +hx of temp OS VF loss secondary to CVA MHX: DM:+ T2 IDDM Last A1c:6.8 05/27 HTN:+ HrtDis:- LungDis:+ Cancer:+kidney, bladder See Cover sheet for complete with allergies FmHx: Glc - AMD - OBJECTIVE: ENTERING: [place]:as above Pupils:as above CVF:FTFC od, sup temp const os EOMs:FROM ou SLEx: Adnexa/Lids/Lashes:mild sup dermatochalasis ou Tear Film:narrow tear film ou Conj:ping n/t ou Cornea:cl ou, -staining ou Sclera:wnl ou Iris:wnl ou, -nvi ou A/C:d/q ou Lens: tr ns prn TA: 13/14 mmHg@1245pm FE: Vitreous:cl ou Maculae:wnl ou, -dme ou Vessels:wnl ou, -dr in pp ou ONH:dist margins ou C/D:0.2/0.2 Periphery:not assessed today HVF 24-2 Today to monitor for changes OD 1. Reliability:poor 2. Analysis:scattered defects 3: Comparison with Previous:stable 4. MD:-4.56 5. VFI:91% OS 1. Reliability:good 2. Analysis:sup and temp defect 3: Comparison with Previous:slightly worsening 4. MD:-6.73 5. VFI:87% Mean Deviation: 0 to -2 (normal), -2 to -6 (mild glaucoma), -6 to -12 (moderate glaucoma), MD is helpful at this stage, <-12 (advanced glaucoma) The VFI represents the entire visual field as a singel percentage of normal, 100% is normal, 0% is perimetrically blind. 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 /sepideh/ Fred Pablo, CARLOS Zinc Skimmer, [facility] Signed: 10/10/2023 13:04 FRED PABLO [facility]
--- OUTSIDE RECORDS SUMMARY | 2024-09-07 10:49 | XMS_ITS | Continuity of Care Document ---
Author Name [facility] Organization [facility] Care Team Providers Care Compliance Analyst Name Role Phone [facility] Unavailable Unavailable Problems Combined list of problems from Department of Defense and Veterans Affairs facilities. It does not include entries that were removed or entered in error. Problem Status Onset Date Problem Type Date of Resolution Comments Source Chronic pancreatitis Active 09/02/20 14 Condition Sep 09, 2014 Entered By: CARLOS GARCIA Comment: per note by Dr. 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 Condition [facility] Acute prostatitis (SNOMED CT 71287589) Active Condition [facility] Anemia Active Condition [facility] Aortic aneurysm screening normal Active Condition Apr 30 Entered By: DRE ALEX Comment: Moderate, [facility], atherosclerosis noted, 03/27/2023 [facility] Biliary calculus (SNOMED CT 969577810) Active Condition [facility] CAD - Coronary Artery Disease (SCT 64350096) Active Condition Oct 21, 2022 Entered By: DER ALEX Comment: CABG anticipated at [facility], positive angiogram [facility] Cardiac defibrillator in situ Active Condition Apr 30, 2023 Entered By: DRE ALEX Comment: placed 04/21/23 [facility] Chronic obstructive airway disease (SNOMED CT 62204308) Active Condition [facility] Dependence on renal dialysis Active Condition Nov 16, 2022 Entered By: DRE ALEX Comment: Patient is using private insurance, nephrology consultations have been DC'd per patient.Dec 26, 2023 Entered By: DRE ALEX Comment: [facility] MWF [facility] disabilty plates Active Condition May 18, 2023 Entered By: DRE ALEX Comment: 05/2023 [facility] Dizziness Active Condition [facility] DM - Diabetes mellitus (SNOMED CT 03129236) Active Condition [facility] Elderly fall Active Condition Sep 02, 2022 Entered By: DRE ALEX Comment: Fracture/pneumoni a versus pulmonary contusion on CT scan08/2022needs follow-up CT scan in 4 to 6 weeks, due by October 2022.Oct 20, 2022 Entered By: DRE ALEX Comment: CT scan 10/2022resolution of concern of consolidation pneumonia versus contusion. [facility] elevated ferritin Active Condition Se 2023 Entered By: DRE ALEX Comment: Highest yet , could be phase reactant, he is on iron for anemia, seen in ED for GI bleed, hematology, lier us and repeat ferritin [facility] Essential hypertension (SNOMED CT 97422493) Active Condition [facility] Exposure to potentially hazardous substance Active Condition [facility] Gout (SNOMED CT 94411308) Active Condition [facility] H/O: Stroke (SCT 505602363) Active Condition Nov 11, 2022 Entered By: DRE ALEX Comment: 2010, equilibrium affected / dizziness [facility] H/O: TIA (SNOMED CT 866001164) Active Condition [facility] Hearing Loss, Sensorineural, Combined Types Active Condition [facility] Hemorrhagic cystitis Active Condition [facility] History of appendectomy Active Condition [facility] History of cholecystectomy Active Condition [facility] History of partial nephrectomy Active Condition [facility] Hyperlipidemia (SNOMED CT 66051652) Active Condition [facility] 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 heart failure Active Condition Jul 11, 2022 Entered By: DRE ALEX Comment: Dialysis [facility] Hypoglycemia Active Condition Dec 26, 2023 Entered By: DRE ALEX Comment: in am bs = 50 ,took too much insulin per [facility] ldct sc rng Active Condition Nov 28, 2022 Entered By: DRE ALEX Comment: fu due 11/2023Feb 2023 Entered By: DRE ALEX Comment: = fu in 3 months 01/31/24May 2023 Entered By: DRE ALEX Comment: 01/2024 - recommends fu in 3 months agian and PULMONARY consult for noduleSep 2023 Entered By: DRE ALEX Comment: 04/2024 ldct copleted , now recommend in 1 year due = 04/2025 [facility] Leg Pain Active Condition [facility] Malignant tumor of urinary bladder (SNOMED CT 420932018) Active Condition [facility] Mood disorder with depressive features due to general medical condition Active Condition [facility] Multiple acquired kidney cysts Active Condition Aug 02, 2022 Entered By: DRE ALEX Comment: Right kidney, only one kidney (left is removed nephrectomy) [facility] Pain in Joint, site unspecified (ICD-9-CM 719.40) Active Condition [facility] Pancreatitis (SNOMED CT 03401243) Active Condition [facility] Peripheral vascular disease Active Condition Oct 20 Entered By: DRE ALEX Comment: Carotids bilaterally 10/2022 = nothing significant less than 50%.Apr 30, 2023 Entered By: DRE ALEX Comment: 03/27/2023, at [facility] no evidence of significant arterial insufficiency. Mild to moderate dense atherosclerosis. Recommends follow-up study in 12 months. [facility] pleural thickening of the bronchi Active Condition Feb 23, 2024 Entered By: DRE ALEX Comment: pulmonary consult [facility] Primary malignant neoplasm of kidney (SNOMED CT 50426703) Active Condition Sep 02, 2022 Entered By: DRE ALEX Comment: History of left nephrectomyFe2022 Entered By: DRE ALEX Comment: Patient is on the inactive transplant for kidney list.Jul 22, 2024 Entered By: DRE ALEX Comment: kidney transplant list, needs colonoscopy done [facility] Renal mass (SNOMED CT 642330443) Active Condition Aug 02, 2022 Entered By: DRE ALEX Comment: Left nephrectomyAug 2022 Entered By: DRE ALEX Comment: Patient his transplant team. [facility] s/p left adrenectomy Active Condition [facility] Tinnitus, NOS Active Condition [facility] Urinary tract infectious disease Active Condition May 03 023 Entered By: DRE ALEX Comment: uti, pneumonia, covid, staph strrep = picc line abx [facility] watchman placed Active Condition [facility] abdnormal diagnostic rdaiological study colon Inactive Condition 10/12/2022 Aug 11, 2022 Entered By: DRE ALEX Comment: possible foreign body vs mass [facility] Perianal abscess Inactive Condition 10/12/2022 No v 2021 Entered By: DRE ALEX Comment: Seen in ED, for growing mass./Wound care consultAug 03, 2022 Entered By: DRE ALEX Comment: [facility] Diagnosis: ICD-10-CM Z00.01 Encounter for general adult medical exam w abnormal findings Active Diagnosis [facility] Diagnosis: ICD-10-CM G47.33 Obstructive sleep apnea (adult) (pediatric) [facility] Diagnosis: ICD-10-CM R91.8 Other nonspecific abnormal finding of lung field Active Diagnosis [facility] Diagnosis: ICD-10-CM R11.0 Nausea Active Diagnosis [facility] Diagnosis: ICD-10-CM Z71.89 Other specified counseling Active Diagnosis [facility] Diagnosis: ICD-10-CM E11.40 Type 2 diabetes mellitus with diabetic neuropathy, unsp Active Diagnosis [facility] Diagnosis: ICD-10-CM R91.1 Solitary pulmonary nodule Active Diagnosis [facility] Diagnosis: ICD-10-CM F06.31 Mood disorder due to known physiol cond w depressv features Active Diagnosis [facility] Diagnosis: ICD-10-CM H53.19 Other subjective visual disturbances Active Diagnosis [facility] Diagnosis: ICD-10-CM Z45.2 Encounter for adjustment and management of VAD Active Diagnosis [facility] Diagnosis: ICD-10-CM Z95.810 Presence of automatic (implantable) cardiac defibrillator Active Diagnosis [facility] Diagnosis: ICD-10-CM R41.82 Altered mental status, unspecified Active Diagnosis [facility] Diagnosis: ICD-10-CM E11.9 Type 2 diabetes mellitus without complications Active Diagnosis [facility] Medications Combined list of outpatient medications from Department of Defense and Veterans Affairs facilities.Medications provided include 1) outpatient medications from the last 15 months, and 2) patient-reported medications. Medication Details Route Status Patient Instructions Prescription Expires Prescription Number Last Dispense Date Ordering Provider Order Date Order Qty Source ALLOPURINOL 100MG TAB TAKE TWO TABLETS BY MOUTH ONCE A DAY FOR GOUT TAKE WITH PLENTY OF WATER. ORAL ACTIVE 12/26/2024 [id number] 4 [facility]ZA ALEX 2023 [facility] ALL[facility] 100MG TAB TAKE TWO TABLETS BY MOUTH ONCE A DAY FOR GOUT. TAKE WITH PLENTY OF WATER. ORAL 10/22/2023 [id number] 3 YARITZA ALEX 2022 180 [facility] amLODIPine 10 mg oral tablet amLODIPi ne 10 mg oral tablet Start Date: 11/13/19 Status: Ordered Ordered No Facilit y Access AMYLASE 60,000UNIT/ LIPASE 12,000UNIT/ PROTEASE 38,000UNIT CAP,EC TAKE 3 CAPSULES BY MOUTH THREE TIMES A DAY BEFORE MEALS FOR PANCREAT IC INSUFFIC IENCY TAKE WITH FOOD DIRECTED . ORAL ACTIVE 01/11/2025 [id number] 4 YARITZA ALEX 2023 900 [facility] AMYLASE 60,000UNIT/ LIPASE 12,000UNIT/ PROTEASE 38,000UNIT CAP,EC TAKE 3 CAPSULES BY MOUTH THREE TIMES A DAY BEFORE MEALS FOR PANCREAT IC ENZYME REPLACEM ENT. TAKE WITH FOOD DIRECTED . ORAL 10/22/2023 [id number] 4 YARITZA ALEX 2022 810 [facility] ASCORBIC ACID 500MG TAB TAKE TWO TABLETS BY MOUTH ONCE A DAY FOR VITAMIN SUPPLEME NTATION. ORAL ACTIVE 12/26/2024 [id number] 4 YARITZA ALEX R 2023 200 [facility] ASCORBIC ACID 500MG TAB TAKE TWO TABLETS BY MOUTH ONCE A DAY FOR VITAMIN SUPPLEME NTATION. ORAL DISCONT INUED 12/02/2023 [id number] 4 YARITZA ALEX R 2022 200 [facility] ASPIRIN 81MG TAB,EC TAKE ONE TABLET BY MOUTH ONCE A DAY FOR HEART OR CIRCULAT ION. TAKE WITH FOOD. ORAL ACTIVE 12/26/2024 [id number] 4 YARITZA ALEX R 2023 120 [facility] ASPIRIN 81MG TAB,EC TAKE ONE TABLET BY MOUTH ONCE A DAY FOR HEART OR CIRCULAT ION. TAKE WITH FOOD. ORAL DISCONT INUED 11/05/2023 [id number] 4 YARITZA ALEX 2022 120 [facility] ATORVASTATI N CA 80MG TAB TAKE ONE-HALF TABLET BY MOUTH EVERY EVENING FOR HIGH CHOLESTE ROL ORAL ACTIVE 12/26/2024 [id number] 4 YARITZA ALEX 2023 45 [facility] AZITHROMYCI N 250MG TAB TAKE TWO TABLETS BY MOUTH EVERY DAY FOR 1 DAY, THEN TAKE ONE TABLET EVERY DAY FOR 4 DAYS FOR PNEUMONI A ORAL 06/01/2024 [id number] 4 DEJON COBURN ICJackson O 2023 6 [facility] BISACODYL 5MG TAB,EC TAKE FOUR TABLETS BY MOUTH ONE TIME FOR BOWEL EMPTYING TAKE AT 3:00PM ON THE DAY PRIOR TO YOUR PROCEDUR E. ORAL 07/03/2024 [id number] 4 YARITZA ALEX 2023 4 [facility] BUPROPION HCL 150MG 24HR TAB,SA TAKE ONE TABLET BY MOUTH ONCE A DAY SWALLOW WHOLE - DO NOT CRUSH OR CHEW. ORAL 12/02/2023 [id number] 4 YARITZA ALEX [address] [place] [address] [facility] BUPROPION HCL 300MG 24HR TAB,SA TAKE ONE TABLET BY MOUTH ONCE A DAY FOR DEPRESSI ON SWALLOW WHOLE - DO NOT CRUSH OR CHEW. ORAL ACTIVE 12/26/2024 [id number] 4 YARITZA ALEX R [address] [place] [address] [facility] calcitriol 0.25 mcg oral capsule calcitri ol 0.25 mcg oral capsule Start Date: 04/18/20 Status: Ordered Ordered No Facilit y Access CARVEDILOL 25MG TAB TAKE ONE-HALF TABLET BY MOUTH TWICE A DAY FOR HIGH BLOOD PRESSURE TAKE WITH FOOD. ORAL ACTIVE 03/13/2025 [id number] 4 YARITZA ALEX R [address] [place] [address] [facility] CARVEDILOL 25MG TAB TAKE ONE-HALF TABLET BY MOUTH TWICE A DAY FOR HIGH BLOOD PRESSURE TAKE WITH FOOD. ORAL DISCONT INUED 04/24/2024 [id number] 4 YARITZA ALEX [address] [place] [address] [facility] CEFDINIR 300MG CAP TAKE ONE CAPSULE BY MOUTH ONCE A DAY FOR PNEUMONI A TAKE UNTIL GONE UNLESS OTHERWIS E DIRECTED . ORAL 06/01/2024 [id number] 4 DEJON COBURN O 2023 7 [facility] CHOLECALCIF ASHLY 50MCG (2,000UNIT) TAB TAKE ONE TABLET BY MOUTH ONCE A DAY FOR VITAMIN D SUPPLEME NTATION ORAL ACTIVE 03/13/2025 [id number] 4 YARITZA ALEX [address] [place] [address] [facility] CHOLECALCIF ASHLY 50MCG (2,000UNIT) TAB TAKE ONE TABLET BY MOUTH ONCE A DAY FOR VITAMIN D SUPPLEME NTATION ORAL DISCONT INUED 04/30/2024 [id number] 4 YARITZA ALEX [address] [place] [address] [facility] CITALOPRAM HYDROBROMID E 40MG TAB TAKE ONE-HALF TABLET BY MOUTH EVERY MORNING FOR DEPRESSI ON ORAL 12/02/2023 [id number] 3 YARITZA ALEX R 2022 45 [facility] CLOPIDOGREL BISULFATE 75MG TAB TAKE ONE TABLET BY MOUTH ONCE A DAY ORAL 04/30/2024 [id number] 4 YARITZA ALEX R 2022 90 [facility] colchicine 0.6 mg oral tablet colchici ne 0.6 mg oral tablet Start Date: 11/13/19 Status: Ordered Ordered No Facilit y Access COLCHICINE 0.6MG TAB TAKE ONE-HALF TABLET BY MOUTH TWO TIMES PER WEEK FOR GOUT (STOP MED AND CONTACT PROVIDER AT FIRST SIGN OF NAUSEA, VOMITING OR DIARRHEA ) ORAL ACTIVE 03/13/2025 [id number] 4 YARITZA ALEX R 2023 12 [facility] COLCHICINE 0.6MG TAB TAKE ONE-HALF TABLET BY MOUTH TWO TIMES PER WEEK FOR GOUT (STOP MED AND CONTACT PROVIDER AT FIRST SIGN OF NAUSEA, VOMITING OR DIARRHEA ) ORAL DISCONT INUED 05/05/2024 [id number] 4 YARITZA ALEX 2022 12 [facility] FERROUS SO4 325MG TAB TAKE ONE TABLET BY MOUTH TWICE A DAY FOR IRON DEFICIEN CY ANEMIA ORAL ACTIVE 03/13/2025 [id number] 4 YARITZA ALEX R 2023 200 [facility] F[facility]OUS SO4 325MG TAB TAKE ONE TABLET BY MOUTH TWICE A DAY FOR IRON DEFICIEN CY ANEMIA ORAL DISCONT INUED 05/30/2024 [id number] 4 YARITZA ALEX 2022 200 [facility] INSULIN,ASP ART,HUMAN (EQV-NOVOLO G) 100 UNIT/ML,FLE XPEN,3ML INJECT 12 UNITS UNDER THE SKIN THREE TIMES A DAY BEFORE MEALS FOR BLOOD SUGAR CONTROL. ADMINIST ER 10 MINUTES BEFORE FOOD DIRECTED . REFRIGER ATE UN-OPENE D PENS. DISCARD CARTRIDG E 28 DAYS AFTER OPENING. SUBCUT ANEOUS ACTIVE 12/26/2024 [id number] 4 YARITZA ALEX R 2023 15 [facility] INSULIN,ASP ART,HUMAN (EQV-NOVOLO G) 100 UNIT/ML,FLE XPEN,3ML INJECT 12 UNITS UNDER THE SKIN THREE TIMES A DAY BEFORE MEALS FOR BLOOD SUGAR CONTROL. ADMINIST ER 10 MINUTES BEFORE FOOD DIRECTED . REFRIGER ATE UN-OPENE D PENS. DISCARD CARTRIDG E 28 DAYS AFTER OPENING. SUBCUT ANEOUS DISCONT INUED 12/02/2023 [id number] 4 YARITZA ALEX R 2022 15 [facility] INSULIN,GLA RGINE-YFGN 100UNIT/ML INJ PEN,3ML INJECT 20 UNITS UNDER THE SKIN ONCE A DAY FOR BLOOD SUGAR CONTROL. ADMINIST ER AT SAME TIME EACH DAY DIRECTED . DISCARD ANY OPEN CARTRIDG E AFTER 28 DAYS. SUBCUT ANEOUS ACTIVE 12/26/2024 [id number] 4 YARITZA ALEX R 2023 10 [facility] INSULIN,GLA RGINE-YFGN 100UNIT/ML INJ PEN,3ML INJECT 20 UNITS UNDER THE SKIN ONCE A DAY FOR BLOOD SUGAR CONTROL. ADMINIST ER AT SAME TIME EACH DAY DIRECTED . DISCARD ANY OPEN CARTRIDG E AFTER 28 DAYS. SUBCUT ANEOUS DISCONT INUED 12/02/2023 [id number] 4 YARITZA ALEX R 2022 10 [facility] LEVOFLOXACI N 500MG TAB TAKE ONE AND ONE-HALF TABLETS BY MOUTH ONE-TIME FOR 1 DAY, THEN TAKE ONE TABLET EVERY 48 HOURS FOR 6 DAYS FOR PNEUMONI A TAKE UNTIL GONE UNLESS OTHERWIS E DIRECTED . SEPARATE FROM ANTACIDS , MULTIVIT AMINS, AND DAIRY PRODUCTS BY 2 HOURS. ORAL 07/03/2024 [id number] 4 YARITZA ALEX R 2023 8 [facility] LIDOCAINE 2.5%/PRILOC ADAN 2.5% CREAM,TOP APPLY LIGHTLY TO AFFECTED AREA(S) DIRECTED NEEDED BEFORE NEEDLE STICK TOPICA L ACTIVE 02/28/2025 [id number] 4 CHRIS NAIK 2023 30 [facility] LIDOCAINE 2.5%/PRILOC ADAN 2.5% CREAM,TOP APPLY LIGHTLY TO AFFECTED AREA(S) DIRECTED NEEDED BEFORE NEEDLE STICK TOPICA L DISCONT INUED 08/25/2024 [id number] 4 CHRIS NAIK Edith 2022 30 [facility] LIDOCAINE 2.5%/PRILOC ADAN 2.5% CREAM,TOP APPLY LIGHTLY TO AFFECTED AREA(S) TD NEEDED BEFORE NEEDLE STICK TOPICA L DISCONT INUED (EDIT) 03/27/2024 [id number] CHRIS NAIK Edith 2022 30 [facility] MIDODRINE HCL 5MG TAB TAKE ONE TABLET BY MOUTH THREE TIMES A DAY FOR LOW BLOOD PRESSURE /DIZZINE SS. ORAL ACTIVE 12/26/2024 [id number] 4 YARITZA ALEX 2023 270 [facility] MIDODRINE HCL 5MG TAB TAKE ONE TABLET BY MOUTH THREE TIMES A DAY FOR LOW BLOOD PRESSURE /DIZZINE SS. ORAL DISCONT INUED 11/17/2023 [id number] 4 YARITZA ALEX 2022 270 [facility] omeprazole 20 mg oral delayed release capsule omeprazo le 20 mg oral delayed release capsule Start Date: 02/21/20 Status: Ordered Ordered No Facilit y Access OMEPRAZOLE 20MG CAP,EC TAKE ONE CAPSULE BY MOUTH TWICE DAILY NEEDED TO LOWER STOMACH ACID. TAKE 30 MINUTES PRIOR TO FOOD. ORAL ACTIVE 07/12/2025 [id number] 4 YARITZA ALEX 2023 180 [facility] OMEPRAZOLE 20MG CAP,EC TAKE ONE CAPSULE BY MOUTH EVERY MORNING BEFORE A MEAL TO LOWER STOMACH ACID. TAKE 30 MINUTES PRIOR TO FOOD. ORAL DISCONT INUED (EDIT) 08/04/2024 [id number] 4 YARITZA ALEX 2023 90 [facility] OMEPRAZOLE 20MG CAP,EC TAKE ONE CAPSULE BY MOUTH EVERY MORNING BEFORE A MEAL TO LOWER STOMACH ACID. TAKE 30 MINUTES PRIOR TO FOOD. ORAL DISCONT INUED 09/24/2023 [id number] 3 YARITZA ALEX R 2022 90 [facility] ONDANSETRON HCL 4MG TAB,ORALLY DISINTEGRAT ING TAKE ONE TABLET UNDER THE TONGUE EVERY EIGHT(8) HOURS NEEDED FOR NAUSEA/V OMITING SUBLIN GUAL 06/01/2024 [id number] 4 DEJON COBURN O 2023 30 [facility] OXYBUTYNIN CL 5MG TAB TAKE ONE TABLET BY MOUTH THREE TIMES A DAY NEEDED FOR BLADDER ORAL ACTIVE 12/26/2024 [id number] 4 YARITZA ALEX R 2023 270 [facility] PANTOPRAZOL E NA 40MG TAB,EC TAKE ONE TABLET BY MOUTH EVERY MORNING BEFORE A MEAL FOR GASTROES OPHAGEAL REFLUX DISEASE TAKE 30 MINUTES BEFORE MEAL(S) ORAL DISCONT INUED BY PROVIDE R 03/13/2025 [id number] 4 YARITZA ALEX R 2023 90 [facility] PANTOPRAZOL E SODIUM (PANTOPRAZO LE SODIUM), 40 MG, TABLET GALA FRAGA MYLAN, 90 ea. BOTTLE Active [id number] 2023 30 Pharmac y Data Trans[facility] tion Service Facilit y PEG-3350/EL ECTROLYTES PWDR MIX AND DRINK 1 [place] BY MOUTH ONE TIME FOR BOWEL EMPTYING FILL WITH WATER TO THE LINE INDICATE D ON CONTAINE R. DRINK DIRECTED . START AT 2:00PM ON THE DAY PRIOR TO YOUR PROCEDUR E. ORAL 07/03/2024 [id number] 4 YARITZA ALEX R 2023 1 [facility] POLYETHYLEN E GLYCOL 3350 PWDR,ORAL MIX AND DRINK 1 CAPFUL BY MOUTH ONCE A DAY NEEDED FOR CONSTIPA TION (MEASURE WITH CAP AND MIX IN 8 OZ OF WATER) ORAL 06/01/2024 [id number] 4 DEJON COBURN O 2023 510 [facility] RENAL MULTIVIT W/1MG OR LESS FOLIC ACID TAB TAKE 1 TABLET BY MOUTH ONCE A DAY FOR NUTRITIO N/DIETAR Y SUPPLEME NTATION ORAL ACTIVE 01/11/2025 [id number] 4 YARITZA ALEX R 2023 100 [facility] RENAL MULTIVIT W/1MG OR LESS FOLIC ACID TAB TAKE 1 TABLET BY MOUTH ONCE A DAY ORAL 10/22/2023 [id number] 4 YARITZA ALEX R 2022 100 [facility] SEVELAMER CARBONATE 800MG TAB TAKE THREE TABLETS BY MOUTH THREE TIMES A DAY WITH MEAL(S) FOR HYPERPHO SPHATEMI A. TAKE WITH FOOD. ORAL ACTIVE 03/13/2025 [id number] 4 YARITZA ALEX R 2023 810 [facility] SEVELAMER CARBONATE 800MG TAB TAKE THREE TABLETS BY MOUTH THREE TIMES A DAY WITH MEAL(S) FOR HYPERPHO SPHATEMI A. TAKE WITH FOOD. ORAL DISCONT INUED 04/30/2024 [id number] 4 YARITZA ALEX R 2022 810 [facility] simvastatin 40 mg oral tablet simvasta tin 40 mg oral tablet Start Date: 11/13/19 Status: Ordered Ordered No Facilit y Access SIMVASTATIN 80MG TAB TAKE ONE-HALF TABLET BY MOUTH EVERY EVENING TO LOWER CHOLESTE ROL ORAL 10/22/2023 [id number] 4 YARITZA ALEX R 2022 45 [facility] SODIUM BICARBONATE 650MG TAB TAKE ONE TABLET BY MOUTH FOUR TIMES A DAY FOR DIALYSIS ORAL ACTIVE 10/20/2024 [id number] 4 YARITZA ALEX R 2023 360 [facility] SODIUM BICARBONATE 650MG TAB TAKE ONE TABLET BY MOUTH THREE TIMES A DAY ORAL DISCONT INUED (EDIT) 10/22/2023 [id number] 4 YARITZA ALEX 2022 270 [facility] SODIUM BIPHOSPHATE 19GM/SODIUM PHOSPHATE 7GM ENEMA INSERT CONTENTS OF 2 ENEMAS RECTALLY ONE TIME ON MORNING BEFORE PROCEDUR E, USE BEFORE LEAVING HOME RECTAL 07/03/2024 [id number] 4 YARITZA ALEX R 2023 2 [facility] TAMSULOSIN HCL 0.4MG CAP TAKE TWO CAPSULES BY MOUTH EVERY EVENING FOR BENIGN PROSTATI C HYPERPLA TASHA APPROXIM ATELY 30 MINUTES AFTER THE SAME MEAL EACH DAY (FOR PROSTATE ) ORAL ACTIVE 03/13/2025 [id number] 4 YARITZA ALEX R 2023 180 [facility] TAMSULOSIN HCL 0.4MG CAP TAKE TWO CAPSULES BY MOUTH EVERY EVENING FOR BENIGN PROSTATI C HYPERPLA TASHA APPROXIM ATELY 30 MINUTES AFTER THE SAME MEAL EACH DAY (FOR PROSTATE ) ORAL DISCONT INUED 04/13/2024 [id number] 4 YARITZA ALEX Ricky 2022 60 [facility] tolterodine 2 mg oral capsule, extended release tolterod ine 2 mg oral capsule, extended release Start Date: 11/13/19 Status: Ordered Ordered No Facilit y Access Allergies, Adverse Reactions, Alerts Combined list of allergies from Department of Defense and Veterans Affairs facilities. It does not include entries that were removed or entered in error. Substance Category Reaction Severity Reaction type Status Date Reported Comments Source No Known Allergies Drug allergy (disorder) active 4 [place], [place] [employer] Propensity to adverse reactions to drug (finding) Nausea and vomiting MODERATE active 4 [facility] Immunizations Combined list of available immunizations from the Department of [facility] and Veterans Affairs facilities. Immunization Series Date Given Administered By Site Reaction Lot Number CVX Code Drug Fibreglass Gun Hand Status Comments Source INFLUENZA, UNSPECIFIED FORMULATION 2023 88 complet ed [facility] TDAP 2022 115 complet [facility] N INFLUENZA, UNSPECIFIED FORMULATION 2021 88 complet ed [facility] ZOSTER RECOMBINANT 2 2020 187 complet ed [facility] ZOSTER RECOMBINANT 1 2018 187 complet ed [facility] [facility] INFLUENZA, INJECTABLE, QUADRIVALENT, PRESERVATIVE FREE 2017 150 complet ed [facility] PNEUMOCOCCAL POLYSACCHARID E [id number] 2016 33 complet ed [facility] INFLUENZA, SEASONAL, INJECTABLE, PRESERVATIVE FREE 2016 140 complet ed [facility] INFLUENZA, SEASONAL, INJECTABLE, PRESERVATIVE FREE 2014 140 complet ed [facility] INFLU[facility], UNSPECIFIED FORMULATION 2014 88 complet ed [facility] PNEUMOCOCCAL CONJUGATE PCV 13 2014 133 complet ed [facility] INFLUENZA, SEASONAL, INJECTABLE, PRESERVATIVE FREE 2013 140 complet ed [facility] TDAP 2012 115 complet ed Right Deltoid [facility] INFLUENZA, UNSPECIFIED FORMULATION 2012 88 complet ed [facility] INFLUENZA, UNSPECIFIED FORMULATION 2011 88 complet ed [facility] ZOSTER [facility]IVE 2011 TOMAS ESTRADA 121 comple t ed [facility] PNEUMOCOCCAL, UNSPECIFIED FORMULATION 2011 109 complet ed [facility] INFLUENZA, UNSPECIFIED FORMULATION 2010 88 complet ed [facility] INFLUENZA (HISTORICAL) 2009 88 complet ed [facility] INFLUENZA, UNSPECIFIED FORMULATION 2008 88 complet ed [facility] Results Combined list of recent chemistry, hematology and other laboratory results from Department of Defense and [employer] Affairs, ranging from 15 months to all on record, depending upon the facility. Order Name Results Value Reference Range Date Interpretation Specimen Comments Source URIC ACID URATE [MASS/VOLUME] IN SERUM OR PLASMA 2.4 mg/dL 3.5 - 7.2 05/23 L Specimen Type: PLASMA No comment entered. Ordering Provider: YARITZA ALEX Report Released Date/Time : May 30, 2023 11:59 AM Reporting Lab: [place] [facility] [address] [place] [address] Performin g Lab: [place] [facility] [address] [place] [address] [facility] FOLATE (PB) FOLATE [MASS/VOLUME] IN SERUM OR PLASMA 17.3 ng/mL 7 - 20 05/23 Specimen Type: SERUM No comment entered. Ordering Provider: YARITZA ALEX Report Released Date/Time : May 30, 2023 11:59 AM Reporting Lab: [place] [facility] [address] [place] [address] 8 Performin g Lab: [place] [facility] [address] [place] [address] [facility] B12 COBALAMIN (VITAMIN B12) [MASS/VOLUME] IN SERUM OR PLASMA 770 pg/mL 213 - 816 05/23 Specimen Type: SERUM No comment entered. Ordering Provider: YARITZA ALEX Report Released Date/Time : May 30, 2023 11:59 AM Reporting Lab: [place] [facility] [address] [place] [address] 8 Performin g Lab: [place] [facility] [address] [place] [address] [facility] HGA1C HEMOGLOBIN A1C/HEMOGLOBI N.TOTAL IN BLOOD 5.7 4.0 - 6.0 05/23 Specimen Type: BLOOD No comment entered. Ordering Provider: YARITZA ALEX Report Released Date/Time : May 30, 2023 11:59 AM Reporting Lab: [place] [facility] [address] [place] [address] 8 Performin g Lab: [place] [facility] [address] [place] [address] [facility] CHOLESTEROL PANEL (PB) CHOLESTEROL [MASS/VOLUME] IN SERUM OR PLASMA 81 mg/dL 0 - 200 05/23 Specimen Type: PLASMA No comment entered. Ordering Provider: YARITZA ALEX Report Released Date/Time : May 30, 2023 11:59 AM Reporting Lab: [place] [facility] [address] [place] [address] 8 Performin g Lab: [place] [facility] [address] [place] [address] [facility] CHOLESTEROL PANEL (PB) TRIGLYCERIDE [MASS/VOLUME] IN SERUM OR PLASMA 115 mg/dL 0 - 150 05/23 Specimen Type: PLASMA No comment entered. Ordering Provider: YARITZA ALEX Report Released Date/Time : May 30, 2023 11:59 AM Reporting Lab: [place] [facility] [address] [place] [address] 8 Performin g Lab: [place] [facility] [address] [place] [address] 8 [facility] CHOLESTEROL PANEL (PB) CHOLESTEROL IN LDL [MASS/VOLUME] IN SERUM OR PLASMA BY CALCULATION 20.7 mg/dL 05/23 Specimen Type: PLASMA No comment entered. Ordering Provider: YARITZA ALEX Report Released Date/Time : May 30, 2023 11:59 AM Reporting Lab: [place] [facility] [address] [place] [address] 8 Performin g Lab: [place] [facility] [address] [place] [address] 8 [facility] CHOLESTEROL PANEL (PB) CHOLESTEROL IN HDL [MASS/VOLUME] IN SERUM OR PLASMA 37.3 mg/dL 40 05/23 L Specimen Type: PLASMA No comment entered. Ordering Provider: YARITZA ALEX Report Released Date/Time : May 30, 2023 11:59 AM Reporting Lab: [place] [facility] [address] [place] [address] 8 Performin g Lab: [place] [facility] [address] [place] [address] 8 [facility] CHOLESTEROL PANEL (PB) CHOLESTEROL IN HDL/CHOLESTER OL.TOTAL [MASS RATIO] IN SERUM OR PLASMA 46.0 25 05/23 Specimen Type: PLASMA No comment entered. Ordering Provider: YARITZA ALEX Report Released Date/Time : May 30, 2023 11:59 AM Reporting Lab: [place] [facility] [address] [place] [address] 8 Performin g Lab: [place] [facility] [address] [place] [address] [facility] TSH (MA-PB) THYROTROPIN [UNITS/VOLUME ] IN SERUM OR PLASMA 1.732 u[IU]/ mL 0.47 - 5 05/23 Specimen Type: SERUM No comment entered. Ordering Provider: YARITZA ALEX Report Released Date/Time : May 30, 2023 11:59 AM Reporting Lab: [place] [facility] [address] [place] [address] 8 Performin g Lab: [place] [facility] [address] [place] [address] [facility] VITAMIN D, 25-HYDROXY 25-HYDROXYVIT KHOURY D3 [MASS/VOLUME] IN SERUM OR PLASMA 75.0 ng/mL 30 - 96 05/23 Specimen Type: SERUM No comment entered. Ordering Provider: YARITZA ALEX Report Released Date/Time : May 30, 2023 11:59 AM Reporting Lab: [place] [facility] [address] [place] [address] 8 Performin g Lab: [place] [facility] [address] [place] [address] [facility] URINE ALBUMIN PROFILE-ih (PB) ALBUMIN [MASS/VOLUME] IN URINE 131.70 mg/L 0 - 30 05/23 H Specimen Type: URINE No comment entered. Ordering Provider: YARITZA ALEX Report Released Date/Time : May 30, 2023 11:59 AM Reporting Lab: [place] [facility] [address] [place] [address] 8 Performin g Lab: [place] [facility] [address] [place] [address] [facility] URINE ALBUMIN PROFILE-ih (PB) ALBUMIN/CREAT ININE [MASS RATIO] IN URINE 398.73 ug/mg 05/23 Specimen Type: URINE No comment entered. Ordering Provider: YARITZA ALEX Report Released Date/Time : May 30, 2023 11:59 AM Reporting Lab: [place] [facility] [address] [place] [address] 8 Performin g Lab: [place] [facility] [address] [place] [address] [facility] URINE ALBUMIN PROFILE-ih (PB) CREATININE [MASS/VOLUME] IN URINE 33.03 mg/dL 05/23 Specimen Type: URINE No comment entered. Ordering Provider: YARITZA ALEX Report Released Date/Time : May 30, 2023 11:59 AM Reporting Lab: [place] [facility] [address] [place] [address] 8 Performin g Lab: [place] [facility] [address] [place] [address] [facility] COMPREHENSI VE METABOLIC PANEL CREATININE [MASS/VOLUME] IN SERUM OR PLASMA 4.38 mg/dL 0.7 - 1.3 05/23 H Specimen Type: PLASMA No comment entered. Ordering Provider: YARITZA ALEX Report Released Date/Time : May 30, 2023 11:59 AM Reporting Lab: [place] [facility] [address] [place] [address] 8 Performin g Lab: [place] [facility] [address] [place] [address] [facility] COMPREHENSI VE METABOLIC PANEL UREA NITROGEN [MASS/VOLUME] IN SERUM OR PLASMA 27 mg/dL 9 - 05/23 H Specimen Type: PLASMA No comment entered. Ordering Provider: YARITZA ALEX Report Released Date/Time : May 30, 2023 11:59 AM Reporting Lab: [place] [facility] [address] [place] [address] 8 Performin g Lab: [place] [facility] [address] [place] [address] 8 [facility] COMPREHENSI VE METABOLIC PANEL GLUCOSE [MASS/VOLUME] IN SERUM OR PLASMA 113 mg/dL 72 - 99 05/23 H Specimen Type: PLASMA No comment entered. Ordering Provider: YARITZA ALEX Report Released Date/Time : May 30, 2023 11:59 AM Reporting Lab: [place] [facility] [address] [place] [address] 8 Performin g Lab: [place] [facility] [address] [place] [address] [facility] COMPREHENSI VE METABOLIC PANEL SODIUM [MOLES/VOLUME ] IN SERUM OR PLASMA 141 meq/L 136 - 145 05/23 Specimen Type: PLASMA No comment entered. Ordering Provider: YARITZA ALEX Report Released Date/Time : May 30, 2023 11:59 AM Reporting Lab: [place] [facility] [address] [place] [address] 8 Performin g Lab: [place] [facility] [address] [place] [address] [place] [facility] COMPREHENSI VE METABOLIC PANEL POTASSIUM [MOLES/VOLUME ] IN SERUM OR PLASMA 4.3 meq/L 3.5 - 5 05/23 Specimen Type: PLASMA No comment entered. Ordering Provider: YARITZA ALEX Report Released Date/Time : May 30, 2023 11:59 AM Reporting Lab: [place] [facility] [address] [place] [address] 8 Performin g Lab: [place] [facility] [address] [place] [address] [facility] COMPREHENSI VE METABOLIC PANEL CHLORIDE [MOLES/VOLUME ] IN SERUM OR PLASMA 97 meq/L 98 - 107 05/23 L Specimen Type: PLASMA No comment entered. Ordering Provider: YARITZA ALEX Report Released Date/Time : May 30, 2023 11:59 AM Reporting Lab: [place] [facility] [address] [place] [address] 8 Performin g Lab: [place] [facility] [address] [place] [address] [facility] COMPREHENSI VE METABOLIC PANEL CARBON DIOXIDE, TOTAL [MOLES/VOLUME ] IN SERUM OR PLASMA 34 meq/L 22 - 31 05/23 H Specimen Type: PLASMA No comment entered. Ordering Provider: YARITZA ALEX Report Released Date/Time : May 30, 2023 11:59 AM Reporting Lab: [place] [facility] [address] [place] [address] 8 Performin g Lab: [place] [facility] [address] [place] [address] [facility] COMPREHENSI VE METABOLIC PANEL CALCIUM [MASS/VOLUME] IN SERUM OR PLASMA 9.4 mg/dL 8.4 - 10.4 05/23 Specimen Type: PLASMA No comment entered. Ordering Provider: YARITZA ALEX Report Released Date/Time : May 30, 2023 11:59 AM Reporting Lab: [place] [facility] [address] [place] [address] 8 Performin g Lab: [place] [facility] [address] [place] [address] [facility] COMPREHENSI VE METABOLIC PANEL PROTEIN [MASS/VOLUME] IN SERUM OR PLASMA 7.0 g/dL 6 - 8.6 05/23 Specimen Type: PLASMA No comment entered. Ordering Provider: YARITZA ALEX Report Released Date/Time : May 30, 2023 11:59 AM Reporting Lab: [place] [facility] [address] [place] [address] 8 Performin g Lab: [place] [facility] [address] [place] [address] [facility] COMPREHENSI VE METABOLIC PANEL ALBUMIN [MASS/VOLUME] IN SERUM OR PLASMA 4.3 g/dL 3.4 - 5 05/23 Specimen Type: PLASMA No comment entered. Ordering Provider: YARITZA ALEX Report Released Date/Time : May 30, 2023 11:59 AM Reporting Lab: [place] [facility] [address] [place] [address] 8 Performin g Lab: [place] [facility] [address] [place] [address] [facility] COMPREHENSI VE METABOLIC PANEL BILIRUBIN.TOT AL [MASS/VOLUME] IN SERUM OR PLASMA 0.7 mg/dL 0.2 - 1.2 05/23 Specimen Type: PLASMA No comment entered. Ordering Provider: YARITZA ALEX Report Released Date/Time : May 30, 2023 11:59 AM Reporting Lab: [place] [facility] [address] [place] [address] 8 Performin g Lab: [place] [facility] [address] [place] [address] [facility] COMPREHENSI VE METABOLIC PANEL ALKALINE PHOSPHATASE [ENZYMATIC ACTIVITY/VOLU ME] IN SERUM OR PLASMA 103 U/L 40 - 150 05/23 Specimen Type: PLASMA No comment entered. Ordering Provider: YARITZA ALEX Report Released Date/Time : May 30, 2023 11:59 AM Reporting Lab: [place] [facility] [address] [place] [address] 8 Performin g [facility]: [place] [facility] [address] [place] [address] [facility] COMPREHENSI VE METABOLIC PANEL ASPARTATE AMINOTRANSFER ASE [ENZYMATIC ACTIVITY/VOLU ME] IN SERUM OR PLASMA 50 U/L 5 - 34 05/23 H Specimen Type: PLASMA No comment entered. Ordering Provider: YARITZA ALEX Report Released Date/Time : May 30, 2023 11:59 AM Reporting Lab: [place] [facility] [address] [place] [address] 8 Performin g Lab: [place] [facility] [address] [place] [address] [facility] COMPREHENSI VE METABOLIC PANEL ALANINE AMINOTRANSFER ASE [ENZYMATIC ACTIVITY/VOLU ME] IN SERUM OR PLASMA 69 U/L 8 - 40 05/23 H Specimen Type: PLASMA No comment entered. Ordering Provider: YARITZA ALEX Report Released Date/Time : May 30, 2023 11:59 AM Reporting Lab: [place] [facility] [address] [place] [address] 8 Performin g Lab: [place] [facility] [address] [place] [address] [facility] COMPREHENSI VE METABOLIC PANEL GLOMERULAR FILTRATION RATE/1.73 SQ M.PREDICTED [VOLUME RATE/AREA] IN SERUM, PLASMA OR BLOOD BY CREATININE-BA SED FORMULA ([id number] 2020) 13 05/23 Specimen Type: PLASMA No comment entered. Ordering Provider: YARITZA ALEX Report Released Date/Time : May 30, 2023 11:59 AM Reporting Lab: [place] [facility] [address] [place] [address] 8 Performin g Lab: [place] [facility] [address] [place] [address] [facility] CBC LEUKOCYTES [#/VOLUME] IN BLOOD BY AUTOMATED COUNT 6.8 10*3/u L 3.6 - 11.2 05/23 Specimen Type: BLOOD No comment entered. Ordering Provider: YARITZA ALEX Report Released Date/Time : May 30, 2023 11:59 AM Reporting Lab: [place] [facility] [address] [place] [address] 8 Performin g Lab: [place] [facility] [address] [place] [address] [facility] CBC ERYTHROCYTES [#/VOLUME] IN BLOOD BY AUTOMATED COUNT 3.66 10*6/u L 4.10 - 5.70 05/23 L Specimen Type: BLOOD No comment entered. Ordering Provider: YARITZA ALEX Report Released Date/Time : May 30, 2023 11:59 AM Reporting Lab: [place] [facility] [address] [place] [address] 8 Performin g Lab: [place] [facility] [address] [place] [address] [facility] CBC HEMOGLOBIN [MASS/VOLUME] IN BLOOD 11.0 g/dL 13.1 - 16.8 05/23 L Specimen Type: BLOOD No comment entered. Ordering Provider: YARITZA ALEX Report Released Date/Time : May 30, 2023 11:59 AM Reporting Lab: [place] [facility] [address] [place] [address] 8 Performin g Lab: [place] [facility] [address] [place] [address] [facility] CBC HEMATOCRIT [VOLUME FRACTION] OF BLOOD 35.1 38.2 - 48.4 05/23 L Specimen Type: BLOOD No comment entered. Ordering Provider: YARITZA ALEX Report Released Date/Time : May 30, 2023 11:59 AM Reporting Lab: [place] [facility] [address] [place] [address] 8 Performin g Lab: [place] [facility] [address] [place] [address] [facility] CBC MCV [ENTITIC VOLUME] BY AUTOMATED COUNT 95.9 fL 80.0 - 100.0 05/23 Specimen Type: BLOOD No comment entered. Ordering Provider: YARITZA ALEX Report Released Date/Time : May 30, 2023 11:59 AM Reporting Lab: [place] [facility] [address] [place] [address] 8 Performin g Lab: [place] [facility] [address] [place] [address] [facility] CBC MCH [ENTITIC MASS] BY AUTOMATED COUNT 30.1 pg 27.0 - 34.0 05/23 Specimen Type: BLOOD No comment entered. Ordering Provider: YARITZA ALEX Report Released Date/Time : May 30, 2023 11:59 AM Reporting Lab: [place] [facility] [address] [place] [address] 8 Performin g Lab: [place] [facility] [address] [place] [address] [facility] CBC MCHC [MASS/VOLUME] BY AUTOMATED COUNT 31.3 g/dL 33.0 - 36.0 05/23 L Specimen Type: BLOOD No comment entered. Ordering Provider: YARITZA ALEX Report Released Date/Time : May 30, 2023 11:59 AM Reporting Lab: [place] [facility] [address] [place] [address] 8 Performin g Lab: [place] [facility] [address] [place] [address] [facility] CBC PLATELETS [#/VOLUME] IN BLOOD BY AUTOMATED COUNT 171 10*3/u L 150 - 400 05/23 Specimen Type: BLOOD No comment entered. Ordering Provider: YARITZA ALEX Report Released Date/Time : May 30, 2023 11:59 AM Reporting Lab: [place] [facility] [address] [place] [address] 8 Performin g Lab: [place] [facility] [address] [place] [address] [facility] CBC PLATELET MEAN VOLUME [ENTITIC VOLUME] IN BLOOD BY AUTOMATED COUNT 11.1 fL 7.5 - 11.2 05/23 Specimen Type: BLOOD No comment entered. Ordering Provider: YARITZA ALEX Report Released Date/Time : May 30, 2023 11:59 AM Reporting Lab: [place] [facility] [address] [place] [address] 8 Performin g Lab: [place] [facility] [address] [place] [address] [facility] CBC ERYTHROCYTE DISTRIBUTION WIDTH [RATIO] BY AUTOMATED COUNT 14.3 11.8 - 15.1 05/23 Specimen Type: BLOOD No comment entered. Ordering Provider: YARITZA ALEX Report Released Date/Time : May 30, 2023 11:59 AM Reporting Lab: [place] [facility] [address] [place] [address] 8 Performin g Lab: [place] [facility] [address] [place] [address] [facility] CBC LYMPHOCYTES/1 00 LEUKOCYTES IN BLOOD BY AUTOMATED COUNT 17.4 05/23 Specimen Type: BLOOD No comment entered. Ordering Provider: YARITZA ALEX Report Released Date/Time : May 30, 2023 11:59 AM Reporting Lab: [place] [facility] [address] [place] [address] 8 Performin g Lab: [place] [facility] [address] [place] [address] [facility] CBC MONOCYTES/100 LEUKOCYTES IN BLOOD BY AUTOMATED COUNT 8.0 05/23 Specimen Type: BLOOD No comment entered. Ordering Provider: YARITZA ALEX Report Released Date/Time : May 30, 2023 11:59 AM Reporting Lab: [place] [facility] [address] [place] [address] 8 Performin g Lab: [place] [facility] [address] [place] [address] [facility] CBC NEUTROPHILS/1 00 LEUKOCYTES IN BLOOD BY AUTOMATED COUNT 70.3 05/23 Specimen Type: BLOOD No comment entered. Ordering Provider: YARITZA ALEX Report Released Date/Time : May 30, 2023 11:59 AM Reporting Lab: [place] [facility] [address] [place] [address] Performin g Lab: [place] [facility] [address] [place] [address] [facility] CBC EOSINOPHILS/1 00 LEUKOCYTES IN BLOOD BY AUTOMATED COUNT 2.7 05/23 Specimen Type: BLOOD No comment entered. Ordering Provider: YARITZA ALEX Report Released Date/Time : May 30, 2023 11:59 AM Reporting Lab: [place] [facility] [address] [place] [address] Performin g Lab: [place] [facility] [address] [place] [address] [facility] CBC BASOPHILS/100 LEUKOCYTES IN BLOOD BY AUTOMATED COUNT 1.3 05/23 Specimen Type: BLOOD No comment entered. Ordering Provider: YARITZA ALEX Report Released Date/Time : May 30, 2023 11:59 AM Reporting Lab: [place] [facility] [address] [place] [address] Performin g Lab: [place] [facility] [address] [place] [address] [facility]INE [facility] CBC LYMPHOCYTES [#/VOLUME] IN BLOOD BY AUTOMATED COUNT 1.18 10*3/u L 0.77 - 4.50 05/23 Specimen Type: BLOOD No comment entered. Ordering Provider: YARITZA ALEX Report Released Date/Time : May 30, 2023 11:59 AM Reporting Lab: [place] [facility] [address] [place] [address] Performin g Lab: [place] [facility] [address] [place] [address] [facility] CBC MONOCYTES [#/VOLUME] IN BLOOD BY AUTOMATED COUNT 0.54 10*3/u L 0.19 - 0.8 05/23 Specimen Type: BLOOD No comment entered. Ordering Provider: YARITZA ALEX Report Released Date/Time : May 30, 2023 11:59 AM Reporting Lab: [place] [facility] [address] [place] [address] Performin g Lab: [place] [facility] [address] [place] [address] [facility] CBC NEUTROPHILS [#/VOLUME] IN BLOOD BY AUTOMATED COUNT 4.77 10*3/u L 2.10 - 8.00 05/23 Specimen Type: BLOOD No comment entered. Ordering Provider: YARITZA ALEX Report Released Date/Time : May 30, 2023 11:59 AM Reporting Lab: [place] [facility] [address] [place] [address] Performin g Lab: [place] [facility] [address] [place] [address] [facility] CBC EOSINOPHILS [#/VOLUME] IN BLOOD BY AUTOMATED COUNT 0.18 10*3/u L 0.00 - 0.60 05/23 Specimen Type: BLOOD No comment entered. Ordering Provider: YARITZA ALEX Report Released Date/Time : May 30, 2023 11:59 AM Reporting Lab: [place] [facility] [address] [place] [address] Performin g Lab: [place] [facility] [address] [place] [address] [facility] CBC BASOPHILS [#/VOLUME] IN BLOOD BY AUTOMATED COUNT 0.09 10*3/u L 0.00 - 0.20 05/23 Specimen Type: BLOOD No comment entered. Ordering Provider: YARITZA ALEX Report Released Date/Time : May 30, 2023 11:59 AM Reporting Lab: [place] [facility] [address] [place] [address] Performin g Lab: [place] [facility] [address] [place] [address] [facility] CBC IMMATURE GRANULOCYTES/ 100 LEUKOCYTES IN BLOOD BY AUTOMATED COUNT 0.3 05/23 Specimen Type: BLOOD No comment entered. Ordering Provider: YARITZA ALEX Report Released Date/Time : May 30, 2023 11:59 AM Reporting Lab: [place] [facility] [address] [place] [address] Performin g Lab: [place] [facility] [address] [place] [address] [facility] [place] [facility] CBC IMMATURE GRANULOCYTES [#/VOLUME] IN BLOOD BY AUTOMATED COUNT 0.02 10*3/u L 0.00 - 0.05 05/23 Specimen Type: BLOOD No comment entered. Ordering Provider: YARITZA ALEX Report Released Date/Time : May 30, 2023 11:59 AM Reporting Lab: [place] [facility] [address] [place] [address] Performin g Lab: [place] [facility] [address] [place] [address] [place] [facility] Vital Signs Combined list of inpatient and outpatient Vital Signs from Department of Defense and Veterans Affairs, ranging from 12 months to all on record, depending upon the facility. Vital Sign Value Date Comments Source No data available for this section Ambulatory Pharm acy SYSTOLIC BLOOD PRESSURE 125 05/30/2024 09:25:00 [facility] DIASTOLIC BLOOD PRESSURE 74 05/30/2024 09:25:00 [facility] PULSE OXIMETRY 96 05/30/2024 [facility]25[facility].6 [facility] 26[facility]/m2 05/30/2024 09:25:00 [facility] PAIN 0 05/30/2024 09:25:00 [facility] HEIGHT 67.0 05/30/2024 09:25:00 [facility] TEMPERATURE 97.3 05/30/2024 09:25:00 [facility] PULSE 64 05/30/2024 09:25:00 [facility] RESPIRATION 18 05/30/2024 09:25:00 [facility] SYSTOLIC BLOOD PRESSURE 122 05/02/2024 09:49:00 [place] [facility] DIASTOLIC BLOOD PRESSURE 62 05/02/2024 09:49:00 [place] [facility] WEIGHT 180 05/02/2024 09:49:00 [place] [facility] BMI 28kg/m2 05/02/2024 09:49:00 [place] [facility] PAIN 0 05/02/2024 09:49:00 [place] [facility] TEMPERATURE 97.7 05/02/2024 09:49:00 [place] [facility] PULSE 66 05/02/2024 09:49:00 [place] [facility] RESPIRATION 18 05/02/2024 09:49:00 [place] [facility] Encounters Combined list of: 1) Encounters from Department of Veterans Affairs facilities [facility]. 2) Encounters from the Department of Defense facilities going back up to 280 months. Location Location Details Encounter Type Encounter Number Reason For Visit Attending Provider ADM Date DC Date Status Disposition Source [facility] Chris Marley [facility] [place], [place]) OUTPATIENT [id number] AMANDO MAX 09/05 Admitted General Chris Marley [facility] [place], [place]) [facility] Chris Marley [facility] [place] ER, DIRECT TO [facility] [id number] ANA LANDRY 09/05 DISCHARGED HOME [facility] Chris Marley [facility] [place] [facility] Chris Wood [facility] [place] ER, DIRECT TO [facility] [id number] NICANOR BLAKE 09/05 CANCELLED ADMISSION [facility] Chris Marley [facility] [place] [facility] [place] [id number] ROMÁN REYES 09/07 Inpatient- Still a Patient General [facility] [place] [facility] [place]) INPATIENT [id number] New onset diabete s GUSTAFSONYANI 09/07 Inpatient- Still a Patient General [facility] [place] [facility] [place] [facility] [place] [place] [place] [facility] [id number] In-Pt BRAD Patel 09/08 Inpatient- Still a Patient [facility] [place] [place] [facility] [place] [address]([facility] OUTPATIENT [id number] Tele Echo DAVID BARNES 09/09 Released w/o Limitations [facility] [place] [address](Aby howard [facility] [place], [place](Health Promotion /Wellness Cent) OUTPATIENT [id number] DIABETE S MANAGEM ENT CLASS WAX, SANTI S 09/11 Inpatient- [facility] a Patient [facility] [place] [place] [place] OUTPATIENT [id number] Diabete s Class YANI GUSTAFSONCHETA 09/11 Inpatient- Still a Patient [place]) [place] OUTPATIENT [id number] consult /booked by manny from case KINZA Hogan 09/17 Released w/o Limitations [facility] [place] OUTPATIENT [id number] rad-ret KINZA Xiong 09/25 Released w/o Limitations [facility] [place] [facility] [place]) OUT[place]IENT [id number] Diabete s mellitu s/pt has taken dm class JUAN F ENGLE 10/08 Released w/o Limitations [facility] [place]) OUTPATIENT [id number] s-retur n KINZA HEALY 03/19 Released w/o Limitations [facility] [place] [facility] [place]) [place] [id number] KINZA HEALY 04/08 Released w/o Limitations [place] OUTPATIENT [id number] s-retur n KINZA HEALY. 09/17 Released w/o Limitations [place]) OUTPATIENT [id number] follow up KINZA HEALY. 12/01 Released w/o Limitations [place]PATIENT [id number] 1 Notes Entered by: ESCOBAR MATHEW 05 Mar 20201941 ------- ------- ------- ------- -- GEMMA ALARCON 03/06 Released w/o Limitations [place]COVI D 19) [facility] Outpatient Encounter [id number] 02/21 [facility] Outpatient Encounter [id number] [id number] 03/08 [facility] Outpatient Encounter [id number] [id number] 03/20 [facility] Outpatient Encounter [id number] [id number] 03/27 [facility] Outpatient Encounter [id number] [id number] 04/05 [facility] Outpatient Encounter [id number] 04/11 [facility] [place] [facility] EYE EXAM&TX ESTAB PT 1/>VST [id number] [id number] Diagnos is: ICD-10- CM E11.9 Type 2 diabete s mellitu s without complic ations< br/> MARTÍNEZ PABLO LA S 04/[address] [place] [facility] Outpatient Encounter [id number] [id number] 04/12 [facility] Outpatient Encounter [id number] [id number] 04/12 [facility] OFF/OP EST JANUARY X REQ PHY/QHP [id number] [id number] Diagnos is: ICD-10- CM R41.82 Altered mental status, unspeci fied
CUSTRED,TO RRI J 04/13 [facility] En[facility] [id number] [id number] 04/14 [facility] Outpatient Encounter [id number] [id number] 04/14 [facility] Outpatient Encounter [id number] [id number] 04/18 [facility] Outpatient Encounter [id number] [id number] 04/19 [facility] Outpatient Encounter [id number] [id number] 04/21 [facility] Outpatient Encounter [id number] [id number] 04/22 [facility] Outpatient Encounter [id number] [id number] 04[facility]22 [facility] [id number] [id number] 04/24 [facility] Outpatient Encounter [id number] [id number] 04/25 [facility] OFFICE O/P EST MOD 30-39 MIN [id number] Diagnos is: ICD-10- CM Z95.810 Presenc e of automat ic (implan table) cardiac defibri llator< br/> DRE ALEX 04/26 [facility] [place] [facility] Outpatient Encounter [id number] [id number] 05/02 [place] [facility] Outpatient Encounter [id number] [id number] 05/03 [facility] OFF/OP EST MAY X REQ PHY/QHP [id number] [id number] Diagnos is: ICD-10- CM Z45.2 Encount er for adjustm ent and managem ent of VAD<br/ > CUSTRED,TO RRI J 05/05 [facility] Encounter [id number] [id number] 05/05 [facility] Outpatient Encounter [id number] [id number] CESAR HOLLOWAY 05/09 [facility] Outpatient Encounter [id number] [id number] DRE ALEX 05/29 [facility] OFFICE O/P EST MOD 30-39 MIN [id number] Diagnos is: ICD-10- CM E11.40 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
DRE ALEX R 05/30 [facility] Outpatient Encounter [id number] [id number] 06/13 [facility] Outpatient Encounter [id number] [id number] 06/23 [facility] Outpatient Encounter [id number] [id number] 06/29 [facility] Outpatient Encounter [id number] [id number] 07/20 [facility] Outpatient Encounter [id number] [id number] 08/03 [facility] Outpatient Encounter [id number] [id number] 08/15 [facility] Outpatient Encounter [id number] [id number] 08/16 [facility] Outpatient Encounter [id number] [id number] 09/20 [facility] Outpatient Encounter [id number] [id number] 10/09 [facility] [place] [facility] COMPRE OPH EXAM EST PT 1/> [id number] [id number] Diagnos is: ICD-10- CM H53.19 Other subject watson visual disturb ances<b r/> MARTÍNEZ PABLO 10/[address] [place] [facility] Outpatient Encounter [id number] [id number] 10/18 [facility] Outpatient Encounter [id number] [id number] 10/18 [facility] Outpatient Encounter [id number] [id number] 10/19 [facility] Outpatient Encounter [id number] [id number] 10/19 [facility] Outpatient Encounter [id number] [id number] 10/31 [facility] Outpatient Encounter [id number] [id number] SANDEE SEPULVEDA A [facility] TELE[facility] FAC[facility] FEE [id number] Diagnos is: ICD-10- CM F06.31 Mood disorde r due to known physiol cond w depress v feature s
CUSTRED,TO RRI J 12/25 [facility] OFFICE O/P EST MOD 30 MIN [id number] Diagnos is: ICD-10- CM F06.31 Mood disorde r due to known physiol cond w depress v feature s
DRE ALEX R 12/25 [facility] SPECIAL SUPPLIES PHYS/QHP [id number] [id number] Diagnos is: ICD-10- CM G47.33 Obstruc tive sleep apnea (adult) (pediat trudy)
POYNOR,ANGEL HELLE B 12/26 [facility] Encounter [id number] [id number] 01/25 [facility] Outpatient Encounter [id number] [id number] 01/29 [facility] Outpatient Encounter [id number] [id number] 01/29 [facility] [place] [facility] OFF/OP EST JANUARY X REQ PHY/QHP [id number] [id number] Diagnos is: ICD-10- CM G47.33 Obstruc tive sleep apnea (adult) (pediat trudy)
MIREYA RAJAN 01/29 [place] [facility] Outpatient Encounter [id number] [id number] Diagnos is: ICD-10- CM R91.8 Other nonspec ific abnorma l finding of lung field<b r/> NICK PORTILLO 01/29 [facility] HC PRO PHONE CALL 11-20 MIN [id number] [id number] Diagnos is: ICD-10- CM R91.1 Solitar y pulmona ry nodule< br/> SANDEE SEPULVEDA 01/[address] [facility] Outpatient Encounter [id number] [id number] 02/27 [facility] Outpatient Encounter [id number] [id number] 02/28 [facility] Outpatient Encounter [id number] [id number] 03/01 [facility] Outpatient Encounter [id number] [id number] 03/04 [facility] [place] [facility] OFF/OP EST MAY X REQ PHY/QHP [id number] [id number] Diagnos is: ICD-10- CM G47.33 Obstruc tive sleep apnea (adult) (pediat trudy)
MIREYA RAJAN 03/05 [place] [facility] OFFICE O/P EST LOW 20 MIN [id number] [id number] Diagnos is: ICD-10- CM E11.40 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
HONGROMEYARITZAAby García 03/12 [facility] TELE[facility]ALTH FACILITY FEE [id number] [id number] Diagnos is: ICD-10- CM E11.40 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
CUSTRED,TO RRI J 03/12 [facility] Outpatient Encounter [id number] [id number] 03/14 [facility] Outpatient Encounter [id number] [id number] 03/21 [facility] Outpatient Encounter [id number] [id number] 03/22 [facility] Outpatient Encounter [id number] [id number] 04/08 [facility] Outpatient Encounter [id number] [id number] 04/08 [facility] [place] [facility] OFF/OP EST MAY X REQ PHY/QHP [id number] [id number] Diagnos is: ICD-10- CM G47.33 Obstruc tive sleep apnea (adult) (pediat trudy)
MIREYA RAJAN 04/09 [place] [facility]-10 MIN [id number] Diagnos is: ICD-10- CM Z71.89 Other specifi ed clinical counselor ing<br/ > JEANA HAHN 04/16 [facility] Outpatient Encounter [id number] [id number] 04/17 [facility] Outpatient Encounter [id number] [id number] 04/18 [facility] Outpatient Encounter [id number] [id number] 3 05/02 [facility] Outpatient Encounter [id number] [id number] 05/02 [facility] OFFICE O/P EST MOD 30 MIN [id number] [id number] Diagnos is: ICD-10- CM R11.0 Nausea< br/> KALYANCaroMEHDIDUKE CK O 05/02 [facility] HC PRO PHONE CALL 11-20 MIN [id number] [id number] Diagnos is: ICD-10- CM R91.8 Other nonspec ific abnorma l finding of lung field<b r/> SANDEE SEPULVEDA A 05/03 [facility] Outpatient Encounter [id number] [id number] SANDEE SEPULVEDA A 05/03 [facility] Encounter 08130-6.65 [id number] 05/09 [facility] Outpatient Encounter [id number] [id number] 05/10 [facility] Outpatient Encounter [id number] [id number] Diagnos is: ICD-10- CM G47.33 Obstruc tive sleep apnea (adult) (pediat trudy)
MIREYA RAJAN 05/10 [facility] OFFICE O/P EST HI 40 MIN [id number] [id number] Diagnos is: ICD-10- CM Z00.01 Encount er for general adult medical exam w abnorma l finding s
DRE ALEX 05/30 [facility] Outpatient Encounter [id number] [id number] 06/17 [facility] Outpatient Encounter [id number] [id number] 06/19 [facility] Outpatient Encounter [id number] [id number] 06/26 [facility] Outpatient Encounter [id number] [id number] 07/04 [facility] Outpatient Encounter [id number] [id number] 07/11 [facility] Outpatient Encounter [id number] [id number] 07/24 [facility] Procedures Combined list of: 1) Procedures from Department of [facility] Affairs facilities going back up to thelast 18 months, not all VA non-surgical procedures are included; 2) All procedures from the Department of Defense facilities. Procedure Procedure Type Code Date Perfomer Comments Sour e No data available for this section Ambulato ry Pharmacy Nutritional counseling, dietitian visit 12/10/19 10 JUAN F ENGLE [facility] Medical Nutrition Therapy Initial A e ment And Intervention Each 15 Minutes Medical Nutrition Therapy Initial Assessment And Intervention Each 15 Minutes [id number] 12/10/19 10 JUAN F ENGLE Medical Nutrition Therapy Group (2 or More Individuals) Each 30 Minutes Medical Nutrition Therapy Group (2 or More Individuals) Each 30 Minutes 26048 09/11/19 10 YANI GUSTAFSON [facility] Echo Congenital Cardiac Defects Transthoracic W/ M-Mode, Spectral, & Color Flow Echo Congenital Cardiac Defects Transthoracic W/ M-Mode, Spectral, & Color Flow 34594 09/11/19 10 DAVID BARNES [facility] Physical Therapy Service Evaluation Physical Therapy Service Evaluation 00767 09/08/19 10 BRAD DONIS [facility] Medical Nutrition Therapy Initial A e ment And Intervention Each 15 Minutes Medical Nutrition Therapy Initial Assessment And Intervention Each 15 Minutes 35529 09/07/19 10 YANI GUSTAFSON [facility] Occupational Therapy Evaluation Occupational Therapy Evaluation 62850 09/07/19 10 ROMÁN REYES [facility] ECHOCARDIOGRAPHY,TRA NSTHORACIC,REAL-TIME W IMAGE DOCUMENTATION (2D),INCLUDES M-MODE RECORDING,WHEN PERFORMED,COMPLETE,W ITH SPECTRAL DOPPLER ECHOCARDIOGRAPHY,AND W COLOR FLOW DOPPLER ECHOCARDIOGRAPHY 09/09/19 10 [facility] NUTRITIONAL COUNSELING, DIETITIAN VISIT 10/08/19 10 [facility] MEDICAL NUTRITION THERAPY; GROUP (2 OR MORE INDIVIDUAL(S)), EACH 30 MINUTES 09/11/19 10 [facility] COMPUTERIZED AXIAL TOMOGRAPHY OF HEAD 09/10/19 10 [facility] DIAGNOSTIC ULTRASOUND OF HEART 09/10/19 10 [facility] MAGNETIC RESONANCE IMAGING OF BRAIN AND BRAIN STEM 09/10/19 10 [facility] ELECTROCARDIOGRAM, ROUTINE ECG WITH AT LEAST 12 LEADS; TRACING ONLY, WITHOUT INTERPRETATION AND REPORT 09/09/19 10 [facility] PHYSICAL THERAPY EVALUATION 09/08/19 10 [facility] MEDICAL NUTRITION THERAPY; INITIAL ASSESSMENT AND INTERVENTION, INDIVIDUAL, [id number] WITH THE PATIENT, EACH 15 MINUTES 09/07/19 10 [facility] OCCUPATIONAL THERAPY EVALUATION 09/07/19 10 [facility] Social History Combined list of available smoking, tobacco, and other social history from Department of Defense and Veterans Affairs facilities. Social History Type Response Date Comment Ermias jolly Tobacco smoking status NHIS VA-TOBACCO QUIT 15 YRS OR MORE 05/30/2024 [place] [facility] History of tobacco use VA-TOBACCO FORMER USER 05/30/2024 [place] [facility] History of tobacco use VA-TOBACCO FORMER USER 04/26/2023 [place] [facility] History of tobacco use VA-TOBACCO FORMER USER 05/26/2022 [facility] History of tobacco use VA-TOBACCO USER EVERY DAY 05/06/2021 [place] [facility] Male 10/14/2020 [facility] History of tobacco use VA-TOBACCO USER EVERY DAY 10/22/2019 [facility] History of tobacco use VA-TOBACCO USE DIRECT OF REAL ESTATE NO 04/18/2019 [facility] History of tobacco use CURRENT TOBACCO USER 03/18/2019 [place] [facility] History of tobacco use CURRENT NON-TOBAC CO USER-HX OF USE 09/18/2018 [facility] History of tobacco use TOBACCO USER OFFE RED MEDS 06/19/2018 [facility] History of tobacco use TOBACCO USER OFFE RED MEDS 03/13/2018 [place] [facility] History of tobacco use TOBACCO USER OFFE RED MEDS 10/04/2017 [facility] History of tobacco use QUIT TOBACCO >7 YEARS AGO 10/02/2015 [facility] History of tobacco use TOBACCO OFFERED [facility] 09/08/2014 [facility] History of tobacco use TOBACCO OFFERED S [facility] 08/21/2013 [facility] History of tobacco use TOBACCO OFFERED P T MEDS (PROVIDER) 01/23/2012 [place] [facility] History of tobacco use TOBACCO OFFERED P T MEDS (PROVIDER) 07/27/2011 [place] [facility] History of tobacco use TOBACCO OFFERED P T MEDS (PROVIDER) 06/15/2011 [place] [facility] History of tobacco use TOBACCO OFFERED P T MEDS (PROVIDER) 05/20/2011 [facility] History of tobacco use TOBACCO OFFERED [facility] 01/17/2011 [facility] History of tobacco use TOBACCO OFFERED P T MEDS (PROVIDER) 07/12/2010 declined [facility] History of tobacco use TOBACCO OFFERED P T MEDS (PROVIDER) 12/09/2009 [facility] Sexual Orientation [facility] Gender identity [facility] This section is an empty social history section. DoD Assessment and Plan Combined list of future care activities from [facility] of Defense and [facility] facilities (e.g., assessment and plan notes, appointments, orders, and referrals). Additional future care activities may be listed in the Plan of Care section. Result Assessment and Plan Date Source Assessment and Plan No data available for this section 09/07/2024 [facility] Plan of Care List of future care activities from [facility] facilities. Additional future care activities may be listed in the Assessment and Plan section. Date/Time Care Activity Care Activity Detail Facili ty 10/30/2024 AMBULATORY - MEDICINE [facility] 11/28/2024 AMBULATORY - MEDICINE AMBULATORY - MEDICI [facility] 07/11/2024 Consult Order COMMUNITY CARE-C OLONOSCOPY SURVEILLANCE [id number] Cons Fermentation Scientist's Choice [facility] Advance Directives List of completed, amended, or rescinded Advance Directives on record at Department of Veterans Affairs facilities. An actual copy of the Directive is not included. Date Advance Directive Provider Source 05/07/2014 ADVANCE DIRECTIVE JUAN GILLETTE [facility] Functional Status Combined list of recent functional and cognitive assessments recorded at Department of Defense and Veterans Affairs (VA).VA Functional Kings Measurement (FIM) Scale: 1 = Total Assistance (Subject = 0% +), 2 = Maximal Assistance (Subject = 25% +), 3 = Moderate Assistance (Subject = 50% +), 4 = Minimal Assistance (Subject = 75% +), 5 = Supervision, 6 = Modified Kings (Device), 7 = Complete Kings (Timely, Safely). Assessment Date/Time Source Assessment Type Assessment Skill Assessment Score Assessment Details No data available for this section
--- OUTSIDE RECORDS SUMMARY | 2024-09-07 10:50 | XMS_ITS | Encounter Summary ---
Author Name [facility] [place] Address [address] [place] [address] Care Team Providers Care Fight Manager Name Role Phone DRE ALEX Primary [...] PART B Mar 04, 2012 PART B [id number] [phone] LEONARD LEWIS PATIENT MEDICARE (WNR) MEDICARE (M) PART A Mar 04, 2012 PART A [id number] LEONARD LEWIS PATIENT MEDICARE (WNR) MEDICARE (M) PART A Mar 04, 2012 PART A [id number] LEONARD LEWIS PATIENT MEDICARE (WNR) MEDICARE (M) PART B Mar 04, 2012 PART B [id number] LEONARD LEWIS PATIENT MEDICARE (WNR) MEDICARE (M) PART A Mar 04, 2012 PART A [id number] LEONARD LEWIS PATIENT MEDICARE (WNR) MEDICARE (M) PART B Mar 04, 2012 PART B [id number] [phone] LEONARD LEWIS PATIENT -FO R-LIFE [facility] WNR Aug 31, 2016 [facility] LIFE [id number] [phone] LEONARD LEWIS PATIENT -FO R-LIFE [facility] WNR Aug 31, 2016 FOR LIFE [id number] [phone] LEONARD LEWIS PATIENT Selected Encounter This section includes the information on record at [place] for the Encounter. Date/Time Encounter Type Encounter Description Reason Pro vider Source Oct 18, 2023 11:05 AM Outpatient Encounter ADMIN PAT ACTIVTIES (MASNONCT) IHE Encounter Template Text not used by [place] Plan of Treatment: Future Appointments (+ 6 months) and Future Tests (+/- 45 days) The Plan of Treatment section includes future care activities for the patient from all [place] treatmentfacilities. This section includes future appointments and future orders which are active, pending or scheduled. Future Appointments This section includes appointments that were scheduled to occur 6 months from the date of the Encounter, up to a maximum of 20 appointments. The data comes from all [place] treatment facilities. Appointment Date/Time Appointment Type Appointme nt Facility Name Oct 31, 2023 01:15 PM AMBULATORY - NONE [facility] Dec 12, 2023 09:40 AM AMBULATORY - MEDICINE [facility] Dec 26, 2023 01:15 PM AMBULATORY - MEDICINE [facility] Dec 26, 2023 01:16 PM AMBULATORY - MEDICINE [facility] January 27, 2024 10:30 AM AMBULATORY - MEDICINE [facility] [facility] January 30, 2024 12:00 PM AMBULATORY - NONE [facility] January 30, 2024 02:30 PM AMBULATORY - MEDICINE [facility] [facility] Mar 05, 2024 12:00 PM AMBULATORY - MEDICINE [facility] [facility] Mar 12, 2024 03:30 PM AMBULATORY - MEDICINE [facility] Mar 12, 2024 03:31 PM AMBULATORY - MEDICINE [facility] Mar 14, 2024 08:30 AM AMBULATORY - MEDICINE [facility] Apr 09, 2024 12:00 PM AMBULATORY - MEDICINE [facility] Advance Directives: All historical and current Section Date Range: From patient's date of to the date document was created. This section includes ALL of a patient's completed or amended VA Advance and Rescinded Directives. The entries below indicate that a directive exists for the patient, but an actual copy is not included with this document. The data comes from all [place] facilities. Date Advance Directives Provider Source May 07, 2014 ADVANCE DIRECTIVE JUAN GILLETTE [facility] Radiology Reports: +/- 30 days of the [...] the Encounter. The data comes from all [place] treatment facilities. Date/Time Radiology Report Provider Source Oct 31, 2023 12:18 PM LDCT LUNG CANCER SCREENING: LEONARD LEWIS [id number] -1950 M Exm Date: OCT 31, 2023@12:18 Req Phys: BRIAN NEWMAN Pat Loc: PB-PHONE LUNG SCREEN (Req'g Lo Img Loc: PB-CT IMAGING Service: Unknown (Case [id number] COMPLETE) LDCT LUNG CANCER SCREENING (CT Detailed) CPT:36017 Reason for Study: no lung nodules- [facility] ldct Clinical History: negative ct thorax 10/27. annual ldct Report Status: Verified Date Reported: NOV 01, 2023 Date Verified: NOV 01, 2023 Mat Machine Tender E-Sig: Report: EXAM: LDCT LUNG CANCER SCREENING ADDITIONAL HISTORY: Annual Screening COMPARISON: CT chest 13 October 2022 PROTOCOL: Screening protocol, low dose, non-contrast CT chest was performed at the local [place] facility in accordance with Lung-Rads 2021. Additional coronal and sagittal reconstructions. MIP reconstructions were reviewed. 2098 images were received by the [place] National Teleradiology Program (NTP) for interpretation. RADIATION [...] MODIFIER: N/A. READING PHYSICIAN: Guy Kovacs MD -[id number] 11/01/2023 13:20 [facility] National Teleradiology Program [phone] (For Medical Practitioner Use Only) Attention Patients / Veterans: If you have questions or concerns about these test results, please contact your ordering provider or primary care team. Primary Interpreting Staff: RADIOLOGY,OUTSIDE SERVICE, Staff Physician / RADIOLOGY,OUTSIDE SERVICE RICARDO MARQUEZ [facility] Encounter Notes: All associated encounter notes This section contains the clinical notes associated to the Encounter. Date/Time Encounter Note(s) Provider Source Oct 18, 2023 11:05 AM ADMINISTRATIVE NOT E: LOCAL TITLE: ADMINISTRATIVE NOTE PB STANDARD TITLE: ADMINISTRATIVE NOTE DATE OF NOTE: OCT 18, 2023@11:05 ENTRY DATE: OCT 18, 2023@11:05:20 AUTHOR: SUSU RODRIGUEZ EXP COSIGNER: URGENCY: STATUS: COMPLETED ADMINISTRATIVE NOTE PB Has ADDENDA rec'd a summons for court and is need of an exemption letter. He is to report 11/15/23. [place] also in need of additional medication: SODIUM BICARBONATE TAB 650MG TAKE ONE TABLET BY MOUTH THREE TIMES A DAY Quantity: 270 Refills: 3 per Dialysis, he is to take 4 tablets per day. /sepideh/ SUSU RODRIGUEZ [place] Signed: 10/18/2023 11:09 Receipt Acknowledged By: 10/19/2023 08:20 /sepideh/ TIFFANY WELLS, ROLAND [place] 10/20/2023 18:33 /sepideh/ DRE ALEX MD 10/18/2023 ADDENDUM STATUS: COMPLETED Requesting jury duty letter, will write letter for and have sign off. will pickle pumper letter monday10/20/23. /sepideh/ TIFFANY WELLS, ROLAND [place] [facility] Signed: 10/18/2023 14:02 SUSU RODRIGUEZ [facility]
--- OUTSIDE RECORDS SUMMARY | 2024-09-07 10:51 | XMS_ITS | Encounter Summary ---
Author Name [place] Address [address] [place] [address] Care Team Providers Care Guest Experience Specialist Name Role Phone DRE ALEX Primary Care [...] PART A Mar 04, 2012 PART A [id number] ALONSO DELGADO PATIENT MEDICARE (WNR) MEDICARE (M) PART B Mar 04, 2012 PART B [id number] [phone] ALONSO DELGADO PATIENT MEDICARE (WNR) MEDICARE (M) PART A Mar 04, 2012 PART A [id number] ALONSO DELGADO PATIENT MEDICARE (WNR) MEDICARE (M) PART B Mar 04, 2012 PART B [id number] ALONSO DELGADO PATIENT MEDICARE (WNR) MEDICARE (M) PART B Mar 04, 2012 PART B [id number] ALONSO DELGADO PATIENT MEDICARE (WNR) MEDICARE (M) PART A Mar 04, 2012 PART A [id number] [phone] ALONSO DELGADO PATIENT -FO R-LIFE [facility] FOR LIFE WNR Aug 31, 2016 FOR LIFE [id number] [phone] ALONSO DELGADO PATIENT -FO R-LIFE [facility] WNR Aug 31, 2016 FOR LIFE [id number] ALONSO DELGADO PATIENT Selected Encounter This section includes the information on record at [place] for the Encounter. Date/Time Encounter Type Encounter Description Reason Pro vider Source Oct 19, 2023 02:09 PM Outpatient Encounter COMMUNITY CARE CONSULT IHE Encounter Template Text not used by [place] Plan of Treatment: Future Appointments (+ 6 months) and Future Tests (+/- 45 days) The Plan of Treatment section includes future care activities for the patient from all [place] treatmentfacilities. This section includes future appointments and future orders which are active, pending or scheduled. Future Appointments This section includes appointments that were scheduled to occur 6 months from the date of the Encounter, up to a maximum of 20 appointments. The data comes from all [place] treatment facilities. Appointment Date/Time Appointment Type Appointme nt Facility Name Oct 31, 2023 01:15 PM AMBULATORY - NONE [facility] Dec 12, 2023 09:40 AM AMBULATORY - MEDICINE [facility] Dec 26, 2023 01:15 PM AMBULATORY - MEDICINE [facility] Dec 26, 2023 01:16 PM AMBULATORY - MEDICINE [facility] January 27, 2024 10:30 AM AMBULATORY - MEDICINE [facility] January 30, 2024 12:00 PM AMBULATORY - NONE [facility] January 30, 2024 02:30 PM AMBULATORY - MEDICINE [facility] Mar 05, 2024 12:00 PM AMBULATORY - MEDICINE [facility] Mar 12, 2024 03:30 PM AMBULATORY - MEDICINE [facility] Mar 12, 2024 03:31 PM AMBULATORY - MEDICINE [facility] Mar 14, 2024 08:30 AM AMBULATORY - MEDICINE [facility] Apr 09, 2024 12:00 PM AMBULATORY - MEDICINE [facility] Apr 18, 2024 01:40 PM AMBULATORY - MEDICINE [facility] Advance Directives: All historical and current Section Date Range: From patient's date of to the date document was created. This section includes ALL of a patient's completed or amended VA Advance and Rescinded Directives. The entries below indicate that a directive exists for the patient, but an actual copy is not included with this document. The data comes from all [place] facilities. Date Advance Directives Provider Source May 07, 2014 ADVANCE DIRECTIVE GILLETTEJUAN [facility] Radiology Reports: +/- 30 days of [...] the Encounter. The data comes from all [place] treatment facilities. Date/Time Radiology Report Provider Source Oct 31, 2023 12:18 PM LDCT LUNG CANCER SCREENING: ALONSO DELGADO [id number] -1950 M Exm Date: OCT 31, 2023@12:18 Req Phys: BRIAN NEWMAN Pat Loc: PB-PHONE LUNG SCREEN (Req'g Lo Img Loc: PB-CT IMAGING Service: Unknown (Case [id number] COMPLETE) LDCT LUNG CANCER SCREENING (CT Detailed) CPT:45154 Reason for Study: no lung nodules- [facility] ldct Clinical History: negative ct thorax 10/27. annual ldct Report Status: Verified Date Reported: NOV 01, 2023 Date Verified: NOV 01, 2023 Transportation Coordinator E-Sig: Report: EXAM: LDCT LUNG CANCER SCREENING ADDITIONAL HISTORY: Annual Screening COMPARISON: CT chest 13 October 2022 PROTOCOL: Screening protocol, low dose, non-contrast CT chest was performed at the local [place] facility in accordance with Lung-Rads 2021. Additional coronal and sagittal reconstructions. MIP reconstructions were reviewed. 2098 images were received by the [place] National Teleradiology Program (NTP) for interpretation. RADIATION [...] MODIFIER: N/A. READING PHYSICIAN: Guy Kovacs MD -[id number] 11/01/2023 13:20 RECREATIONAL ASSISTANT [facility] National Teleradiology Program [phone] (For Medical Practitioner Use Only) Attention Patients / Veterans: If you have questions or concerns about these test results, please contact your ordering provider or primary care team. Primary Interpreting Staff: RADIOLOGY,OUTSIDE SERVICE, Staff Physician / RADIOLOGY,OUTSIDE SERVICE DAMIÁN MARQUEZ [facility] Encounter Notes: All associated encounter notes This section contains the clinical notes associated to the Encounter. Date/Time Encounter Note(s) Provider Source Oct 19, 2023 02:09 PM LETTERS: LOCAL TITLE: COMMUNITY CARE-REFERRAL PB (AUTO-PRINT) STANDARD TITLE: LETTERS DATE OF NOTE: OCT 19, 2023@14:09:29 ENTRY DATE: OCT 19, 2023@14:09:29 AUTHOR: SEMAJ PADILLA COSIGNER: URGENCY: STATUS: COMPLETED Alonso Delgado [address] [facility] [address] [place] [id number] Dear ALONSO DELGADO, Your VA provider has referred you to a provider within the community for care. Your medical care for OPHTHALMOLOGY has been authorized with the Community Care Provider listed below. DO NOT REPORT TO THE [facility] Provider info: An appointment has been scheduled for you on: Dec 12, 2023 09:40 AM Office Name: [facility] Address: [address] Address: [place] [address] Auth #: [id number] Referral Issue Date:2023-10-11 Expiration Date:2024-12-20 If you are unable to keep this appointment or the appointment is no longer needed, please contact the community provider above for notification/rescheduling and then call the [place] Community Care Office at [phone] Ext [phone]. If you need additional care/services not mentioned above, please contact your primary care provider for a new referral. Co-Payments: If you are required to pay a VA co-payment, you will be billed by the VA for each authorized visit that you attend. However, you are NOT REQUIRED to make co-payments to a Community Provider. Prescriptions: Your community provider may write a prescription related to the authorized care. If there is an immediate need for your prescriptions from your community care visit, you may be able to get up to a 14-day fill of your prescription at your own expense for the cost of the medication, and may seek reimbursement from the VA. If you require more than a 14-day supply or if the prescribed medication is not immediately needed, your community provider will send a prescription to a VA pharmacy so that the VA can provide you with your routine medication. In-network locations can be found at https://www.va.gov/find-loc ations/ Medical Devices: Your community provider may recommend that medical devices, adapted equipment, or other items be provided for the treatment or rehabilitation of your medical condition. Veterans are generally required to obtain these items through the Prosthetics and Sensory Aids Service (PSAS) in your referring facility. Emergency/Inpatient Services: You, your community provider, or your family must provide notification within 72hr or ER visit and/or admission by [phone]. Thank you for the opportunity to serve you and for your service to our great nation! [facility] [place] Care in the Community [address] [place] [address] SEMAJ PADILLA [facility]
--- OUTSIDE RECORDS SUMMARY | 2024-09-07 10:51 | XMS_ITS ---
Author Name [facility] [place] [facility] [place] Address [address] [place] [address] Care Team Providers Care Cracking Machine Operator Name Role Phone DRE ALEX Primary Care [...] PART B Mar 04, 2012 PART B [id number] LEONARD LEWIS PATIENT MEDICARE (WNR) MEDICARE (M) PART A Mar 04, 2012 PART A [id number] LEONARD LEWIS PATIENT MEDICARE (WNR) MEDICARE (M) PART A Mar 04, 2012 PART A [id number] [phone] DO JOSHUAYLE PATIENT MEDICARE (WNR) MEDICARE (M) PART B Mar 04, 2012 PART B [id number] [phone] LEONARD LEWIS PATIENT MEDICARE (WNR) MEDICARE (M) PART A Mar 04, 2012 PART A [id number] LEONARD LEWIS PATIENT MEDICARE (WNR) MEDICARE (M) PART B Mar 04, 2012 PART B [id number] [phone] LEONARD LEWIS PATIENT -FO R-LIFE [facility] RE FOR LIFE WNR Aug 31, 2016 FOR LIFE [id number] LEONARD LEWIS PATIENT -FO R-LIFE [facility] RE FOR LIFE WNR Aug 31, 2016 FOR LIFE [id number] [phone] LEONARD LEWIS PATIENT Selected Encounter This section includes the information on record at [place] for the Encounter. Date/Time Encounter Type Encounter Description Reason Provider Source Nov 02, 2023 11:22 AM Outpatient Encounter ADMIN PAT ACTIVTIES (MASNONCT) BRANDON SEPULVEDA Aby Encounter Template Text not used by [place] Plan of Treatment: Future Appointments (+ 6 months) and Future Tests (+/- 45 days) The Plan of Treatment section includes future care activities for the patient from all [place] treatmentfacilities. This section includes future appointments and future orders which are active, pending or scheduled. Future Appointments This section includes appointments that were scheduled to occur 6 months from the date of the Encounter, up to a maximum of 20 appointments. The data comes from all [place] treatment facilities. Appointment Date/Time Appointment Type Appointme nt Facility Name Dec 12, 2023 09:40 AM AMBULATORY - MEDICINE [facility] [facility] Dec 26, 2023 01:15 PM AMBULATORY - MEDICINE [facility] Dec 26, 2023 01:16 PM AMBULATORY - MEDICINE [facility] January 27, 2024 10:30 AM AMBULATORY - MEDICINE [facility] [facility] January 30, 2024 12:00 PM AMBULATORY - NONE [place] [facility] January 30, 2024 02:30 PM AMBULATORY - MEDICINE [facility] [facility] Mar 05, 2024 12:00 PM AMBULATORY - MEDICINE [facility] Mar 12, 2024 03:30 PM AMBULATORY - MEDICINE [facility] Mar 12, 2024 03:31 PM AMBULATORY - MEDICINE [facility] Mar 14, 2024 08:30 AM AMBULATORY - MEDICINE [facility] Apr 09, 2024 12:00 PM AMBULATORY - MEDICINE [facility] HIRAL BONILLA [facility] Apr 18, 2024 01:40 PM AMBULATORY - MEDICINE [facility] [facility] CH[facility] May 02, 2024 09:41 AM AMBULATORY - MEDICINE [facility] May 02, 2024 01:00 PM AMBULATORY - NONE RICARDO CSATAÑEDA [facility] Social History: Smoking Status (Most current) and Tobacco Use (All prior to encounter date) This section includes the most current, and the historical, smoking and tobacco- related health factors from the [place] facility where the Encounter took place. Current Smoking Status This section includes the most current smoking, or tobacco-related health factor, from the [place] facility where the Encounter took place. Date/Time Current Smoking Status Comment Facil ity Jun 15, 2011 02:49 PM TOBACCO OFFERED PT MEDS (PROVIDE R) [facility] Tobacco Use History This section includes a history of the smoking, or tobacco-related health factors, that were collected on or before the date of the Encounter. The data comes from the [place] facility where the Encounter took place. Date/Time Smoking Status/Tobacco Use Comment F acility Jun 15, 2011 02:49 PM TOBACCO OFFERED PT MEDS (PROVIDE R) [facility] Jun 15, 2011 02:[address] [facility]MOKING [facility] Advance Directives: All historical and current Section Date Range: From patient's date of to the date document was created. This section includes ALL of a patient's completed or amended [place] Advance and Rescinded Directives. The entries below indicate that a directive exists for the patient, but an actual copy is not included with this document. The data comes from all [place] facilities. Date Advance Directives Provider Source May 07, 2014 ADVANCE DIRECTIVE JUAN GILLETTE FF [facility] Radiology Reports: +/- 30 days of the [...] the Encounter. The data comes from all [place] treatment facilities. Date/Time Radiology Report Provider Source Oct 31, 2023 12:18 PM LDCT LUNG CANCER SCREENING: LEONARD LEWIS [id number] -1950 M Exm Date: OCT 31, 2023@12:18 Req Phys: BRIAN NEWMAN M Pat Loc: PB-PHONE LUNG SCREEN (Req'g Lo Img Loc: PB-CT IMAGING Service: Unknown (Case [id number] COMPLETE) LDCT LUNG CANCER SCREENING (CT Detailed) CPT:27144 Reason for Study: no lung nodules- [facility] ldct Clinical History: negative ct thorax 10/27. annual ldct Report Status: Verified Date Reported: NOV 01, 2023 Date Verified: NOV 01, 2023 Machine Maintenance Technician E-Sig: Report: EXAM: LDCT LUNG CANCER SCREENING ADDITIONAL HISTORY: Annual Screening COMPARISON: CT chest 13 October 2022 PROTOCOL: Screening protocol, low dose, non-contrast CT chest was performed at the local [place] facility in accordance with Lung-Rads 2021. Additional coronal and sagittal reconstructions. MIP reconstructions were reviewed. 2097 images were received by the [place] National Teleradiology Program (NTP) for interpretation. RADIATION [...] MODIFIER: N/A. READING PHYSICIAN: Guy Kovacs MD -[id number] 11/01/2023 13:20 MANAGER IT TRAINING [facility] National Teleradiology Program [phone] (For Medical Practitioner Use Only) Attention Patients / Veterans: If you have questions or concerns about these test results, please contact your ordering provider or primary care team. Primary Interpreting Staff: RADIOLOGY,OUTSIDE SERVICE, Staff Physician / RADIOLOGY,OUTSIDE SERVICE RICARDO BONILLA [facility] Encounter Notes: All associated encounter notes This section contains the clinical notes associated to the Encounter. Date/Time Encounter Note(s) Provider Source Nov 02, 2023 11:22 AM PRIMARY CARE DIAGN OSTIC STUDY NOTE: LOCAL TITLE: LDCT FOLLOW-UP NOTE PB STANDARD TITLE: PRIMARY CARE DIAGNOSTIC STUDY NOTE DATE OF NOTE: NOV 02, 2023@11:22 ENTRY DATE: NOV 02, 2023@11:22:59 AUTHOR: BRANDON SEPULVEDA EXP COSIGNER: URGENCY: STATUS: COMPLETED 11:35 Phone contact to vet@ . Verified by name/. also airways control specialist with vets permission. Informed LDCT results and radiology recommendation of 3 month f/u LDCT. Educated regarding lung nodules &reviewed risks/benefits of LCS program. Confirmed continues to be smoke free since December 2020 after 1-up to 2ppd starting age 15 yrs. Much congrats provided; reports quit cold turkey...and I never had any withdrawls..It was all God . Tobacco Pack Year History: Quit smoking LESS THAN 15 years. Year the patient quit smoking: Date: December 11, 2020 How many years has the patient smoked? # of years: 55 started age 14 Average number of packs/day over the entire time patient smoked: Packs/day: 1.5 1ppd up to 2ppd, dec to 3-5/cigs day right before quit [place] reports having hx of being told has scarring and some fluid on imaging. denies any shortness of breath, having any congestion or cough, fevers or sweats. Agrees with 3 month f/u plan, pt and/or denies any questions/concerns and informed to f/u with PCP for any interval questions/concerns. Much gratitude expressed for call. Will update LCS platform/order. LUNGRADS CATEGORY 0: Incomplete CT exam. Date of image: Date: October 31, 2023 LDCT Results LungRads category 0: Part or all of lungs cannot be evaluated. Additional lung cancer screening CT image and/or comparison to prior chest CT examinations is needed. Impression: LUNG-RADS: 0: Incomplete. Marked volume loss [...] RECOMMENDATION: [address] follow-up. No incidental findings were noted. Plan: Interval until next LDCT scan is due: 3 months - request to be done on or (order-JIA 5.) Patient Notification of results: Patient contacted by telephone. /sepideh/ BRANDON WELLS RN CHERRY V15 [facility] Spec RNCC Signed: 11/02/2023 11:46 Receipt Acknowledged By: 11/02/2023 12:09 /sepideh/ BRANDON BROOKS MD [facility]
--- OUTSIDE RECORDS SUMMARY | 2024-09-07 10:51 | XMS_ITS | Encounter Summary ---
Author Name [facility] [place] [facility] [place] Address [address] [place] [address] Care Team Providers Care International Trade Teacher Name Role Phone DRE ALEX Primary Care [...] PART B Mar 04, 2012 PART B [id number] [phone] LEONARD LEWIS PATIENT MEDICARE (WNR) MEDICARE (M) PART A Mar 04, 2012 PART A [id number] LEONARD LEWIS PATIENT MEDICARE (WNR) MEDICARE (M) PART A Mar 04, 2012 PART A [id number] LEONARD LEWIS PATIENT MEDICARE (WNR) MEDICARE (M) PART B Mar 04, 2012 PART B [id number] LEONARD LEWIS PATIENT MEDICARE (WNR) MEDICARE (M) PART A Mar 04, 2012 PART A [id number] LEONARD LEWIS PATIENT MEDICARE (WNR) MEDICARE (M) PART B Mar 04, 2012 PART B [id number] LEONARD LEWIS PATIENT -FO R-LIFE TRICA RE FOR LIFE WNR Aug 31, 2016 FOR LIFE [id number] LEONARD LEWIS PATIENT -FO R-LIFE TRICA RE FOR LIFE WNR Aug 31, 2016 FOR LIFE [id number] [phone] LEONARD LEIWS PATIENT Selected Encounter This section includes the information on record at [place] for the Encounter. Date/Time Encounter Type Encounter Description Reason Pro vider Source Oct 31, 2023 12:00 AM Outpatient Encounter EVENT (HISTORICAL) IHE Encounter Template Text not used by [place] Plan of Treatment: Future Appointments (+ 6 months) and Future Tests (+/- 45 days) The Plan of Treatment section includes future care activities for the patient from all [place] treatmentfacilities. This section includes future appointments and future orders which are active, pending or scheduled. Future Appointments This section includes appointments that were scheduled to occur 6 months from the date of the Encounter, up to a maximum of 20 appointments. The data comes from all [place] treatment facilities. Appointment Date/Time Appointment Type Appointme nt Facility Name Dec 12, 2023 09:40 AM AMBULATORY - MEDICINE [facility] [facility] Dec 26, 2023 01:15 PM AMBULATORY - MEDICINE [facility] Dec 26, 2023 01:16 PM AMBULATORY - MEDICINE [facility] January 27, 2024 10:30 AM AMBULATORY - MEDICINE [place] [facility] January 30, 2024 12:00 PM AMBULATORY - NONE [facility] January 30, 2024 02:30 PM AMBULATORY - MEDICINE [facility] Mar 05, 2024 12:00 PM AMBULATORY - MEDICINE [facility] Mar 12, 2024 03:30 PM AMBULATORY - MEDICINE [facility] Mar 12, 2024 03:31 PM AMBULATORY - MEDICINE [facility] Mar 14, 2024 08:30 AM AMBULATORY - MEDICINE [facility] Apr 09, 2024 12:00 PM [facility] Apr 18, 2024 01:40 PM [facility]UL[facility] Advance Directives: All historical and current Section Date Range: From patient's date of to the date document was created. This section includes ALL of a patient's completed or amended [place] Advance and Rescinded Directives. The entries below indicate that a directive exists for the patient, but an actual copy is not included with this document. The data comes from all [place] facilities. Date Advance Directives Provider Source May 07, 2014 ADVANCE DIRECTIVE JUAN GILLETTE [facility] Radiology Reports: +/- 30 days [...] the Encounter. The data comes from all [place] treatment facilities. Date/Time Radiology Report Provider Source Oct 31, 2023 12:18 PM LDCT LUNG CANCER SCREENING: LEONARD LEWIS [id number] -1950 M Exm Date: OCT 31, 2023@12:18 Req Phys: BRIAN NEWMAN Pat Loc: PB-PHONE LUNG SCREEN (Req'g Lo Img Loc: PB-CT IMAGING Service: Unknown (Case [id number] COMPLETE) LDCT LUNG CANCER SCREENING (CT Detailed) CPT:72190 Reason for Study: no lung nodules- [facility] ldct Clinical History: negative ct thorax 10/27. annual ldct Report Status: Verified Date Reported: NOV 01, 2023 Date Verified: NOV 01, 2023 Toe Sewer E-Sig: Report: EXAM: LDCT LUNG CANCER SCREENING ADDITIONAL HISTORY: Annual Screening COMPARISON: CT chest 13 October 2022 PROTOCOL: Screening protocol, low dose, non-contrast CT chest was performed at the local [place] facility in accordance with Lung-Rads 2021. Additional coronal and sagittal reconstructions. MIP reconstructions were reviewed. 2098 images were received by the [place] National Teleradiology Program (NTP) for interpretation. RADIATION [...] MODIFIER: N/A. READING PHYSICIAN: Guy Kovacs MD -[id number] 11/01/2023 13:20 POLICY CHANGE CLERKS SUPERVISOR [facility] National j-Grabradiology Program [phone] (For Medical Practitioner Use Only) Attention Patients / Veterans: If you have questions or concerns about these test results, please contact your ordering provider or primary care team. Primary Interpreting Staff: RADIOLOGY,OUTSIDE SERVICE, Staff Physician / RADIOLOGY,OUTSIDE SERVICE RICARDO MARQUEZ [facility]
--- OUTSIDE RECORDS SUMMARY | 2024-09-07 10:51 | XMS_ITS | Encounter Summary ---
Author Name [facility] [place] Address [address] [place] [address] Care Team Providers Care Biometrics Analyst Name Role Phone DRE ALEX Primary Care [...] PART A Mar 04, 2012 PART A [id number] ALONSO DELGADO PATIENT MEDICARE (WNR) MEDICARE (M) PART B Mar 04, 2012 PART B [id number] [phone] ALONSO DELGADO PATIENT MEDICARE (WNR) MEDICARE (M) PART A Mar 04, 2012 PART A [id number] ALONSO DELGADO PATIENT MEDICARE (WNR) MEDICARE (M) PART B Mar 04, 2012 PART B [id number] ALONSO DELGADO PATIENT MEDICARE (WNR) MEDICARE (M) PART B Mar 04, 2012 PART B [id number] [phone] ALONSO DELGADO PATIENT MEDICARE (WNR) MEDICARE (M) PART A Mar 04, 2012 PART A [id number] ALONSO DELGADO PATIENT -FO R-LIFE TRICA RE FOR LIFE WNR Aug 31, 2016 FOR LIFE [id number] [phone] ALONSO DELGADO PATIENT -FO R-LIFE TRICA RE FOR LIFE WNR Aug 31, 2016 FOR LIFE [id number] [phone] ALONSO DELGADO PATIENT Selected Encounter This section includes the information on record at [place] for the Encounter. Date/Time Encounter Type Encounter Description Reason Pro vider Source Oct 19, 2023 12:10 PM Outpatient Encounter COMMUNITY CARE CONSULT IHE Encounter Template Text not used by [place] Plan of Treatment: Future Appointments (+ 6 months) and Future Tests (+/- 45 days) The Plan of Treatment section includes future care activities for the patient from all [place] treatmentfacilities. This section includes future appointments and future orders which are active, pending or scheduled. Future Appointments This section includes appointments that were scheduled to occur 6 months from the date of the Encounter, up to a maximum of 20 appointments. The data comes from all [place] treatment facilities. Appointment Date/Time Appointment Type Appointme nt Facility Name Oct 31, 2023 01:15 PM AMBULATORY - NONE [facility] Dec 12, 2023 09:40 AM AMBULATORY - MEDICINE [facility] [facility] Dec 26, 2023 01:15 PM AMBULATORY - MEDICINE [facility] Dec 26, 2023 01:16 PM AMBULATORY - MEDICINE [facility] January 27, 2024 10:30 AM AMBULATORY - MEDICINE [facility] January 30, 2024 12:00 PM AMBULATORY - NONE [facility] January 30, 2024 02:30 PM AMBULATORY - MEDICINE [facility] Mar 05, 2024 12:00 PM AMBULATORY - MEDICINE [facility] Mar 12, 2024 03:30 PM AMBULATORY - MEDICINE [facility] Mar 12, 2024 03:31 PM AMBULATORY - MEDICINE [facility] Mar 14, 2024 08:30 AM AMBULATORY - MEDICINE [facility] Apr 09, 2024 12:00 PM AMBULATORY - MEDICINE [facility] BLFLORENTINO [facility] Apr 18, 2024 01:40 PM AMBULATORY - MEDICINE [facility] Advance Directives: All historical and current Section Date Range: From patient's date of to the date document was created. This section includes ALL of a patient's completed or amended [place] Advance and Rescinded Directives. The entries below indicate that a directive exists for the patient, but an actual copy is not included with this document. The data comes from all [place] facilities. Date Advance Directives Provider Source May 07, 2014 ADVANCE DIRECTIVE GILLETTEJUAN [facility] Radiology Reports: +/- 30 days of [...] the Encounter. The data comes from all [place] treatment facilities. Date/Time Radiology Report Provider Source Oct 31, 2023 12:18 PM LDCT LUNG CANCER SCREENING: ALONSO DELGADO [id number] -1950 M Exm Date: OCT 31, 2023@12:18 Req Phys: BRIAN NEWMAN Pat Loc: PB-PHONE LUNG SCREEN (Req'g Lo Img Loc: PB-CT IMAGING Service: Unknown (Case [id number] COMPLETE) LDCT LUNG CANCER SCREENING (CT Detailed) CPT:43264 Reason for Study: no lung nodules- [facility] ldct Clinical History: negative ct thorax 10/27. annual ldct Report Status: Verified Date Reported: NOV 01, 2023 Date Verified: NOV 01, 2023 Fulfillment Specialist E-Sig: Report: EXAM: LDCT LUNG CANCER SCREENING ADDITIONAL HISTORY: Annual Screening COMPARISON: CT chest 13 October 2022 PROTOCOL: Screening protocol, low dose, non-contrast CT chest was performed at the local [place] facility in accordance with Lung-Rads 2021. Additional coronal and sagittal reconstructions. MIP reconstructions were reviewed. 2098 images were received by the [place] National Teleradiology Program (NTP) for interpretation. RADIATION [...] MODIFIER: N/A. READING PHYSICIAN: Guy Kovacs MD -[id number] 11/01/2023 13:20 CHAIN MAKER [facility] National Teleradiology Program [phone] (For Medical Practitioner Use Only) Attention Patients / Veterans: If you have questions or concerns about these test results, please contact your ordering provider or primary care team. Primary Interpreting Staff: RADIOLOGY,OUTSIDE SERVICE, Staff Physician / RADIOLOGY,OUTSIDE SERVICE [facility] Encounter Notes: All associated encounter notes This section contains the clinical notes associated to the Encounter. Date/Time Encounter Note(s) Provider Source Oct 19, 2023 12:10 PM LETTERS: LOCAL TITLE: COMMUNITY CARE-REFERRAL PB (AUTO-PRINT) STANDARD TITLE: LETTERS DATE OF NOTE: OCT 19, 2023@12:10:31 ENTRY DATE: OCT 19, 2023@12:10:31 AUTHOR: SEMAJ PADILLA COSIGNER: URGENCY: STATUS: COMPLETED Alonso Delgado [address] [facility] [address] [place] [address] Dear ALONSO DELGADO, Your VA provider has referred you to a provider within the community for care. Your medical care for OPHTHALMOLOGY has been authorized with the Community Care Provider listed below. DO NOT REPORT TO THE [facility] Provider info: Dr. García An appointment has been scheduled for you on: Dec 21, 2023 09:20 AM Office Name: [facility] Address: [address] [place] [address] Address: [place] [address] Auth #: [id number] Referral Issue Date:2023-10-11 Expiration Date:2024-12-20 If you are unable to keep this appointment or the appointment is no longer needed, please contact the community provider above for notification/rescheduling and then call the [facility] [place] [facility] at [phone] Ext [phone]. If you need additional care/services not mentioned [...] 72hr or ER visit and/or admission by [phone]. Thank you for the opportunity to serve you and for your service to our great nation! [facility] Care in the Community [address] [facility] [place] [address] SEMAJ PADILLA [facility]
--- OUTSIDE RECORDS SUMMARY | 2024-09-07 10:51 | XMS_ITS | Encounter Summary ---
Author Name [facility] [place] Address [address] [place] [address] Care Team Providers Care Steam Press Tender Name Role Phone DRE ALEX Primary Care [...] PART B Mar 04, 2012 PART B [id number] [phone] LEONARD LEWIS PATIENT MEDICARE (WNR) MEDICARE (M) PART A Mar 04, 2012 PART A [id number] [phone] LEONARD LEWIS PATIENT MEDICARE (WNR) MEDICARE (M) PART A Mar 04, 2012 PART A [id number] [phone] LEONARD LEWIS PATIENT MEDICARE (WNR) MEDICARE (M) PART B Mar 04, 2012 PART B [id number] [phone] LEONARD LEWIS PATIENT MEDICARE (WNR) MEDICARE (M) PART A Mar 04, 2012 PART A [id number] [phone] LEONARD LEWIS PATIENT MEDICARE (WNR) MEDICARE (M) PART B Mar 04, 2012 PART B [id number] LEONARD LEWIS PATIENT -FO R-LIFE [facility] FOR LIFE WNR Aug 31, 2016 [facility] LIFE [id number] [phone] LEONARD LEWIS PATIENT -FO R-LIFE [facility] FOR LIFE WNR Aug 31, 2016 FOR LIFE [id number] [phone] LEONARD LEWIS PATIENT Selected Encounter This section includes the information on record at [place] for the Encounter. Date/Time Encounter Type Encounter Description Reason Pro vider Source Sep 20, 2023 12:00 AM Outpatient Encounter EVENT (HISTORICAL) IHE Encounter Template Text not used by [place] Plan of Treatment: Future Appointments (+ 6 months) and Future Tests (+/- 45 days) The Plan of Treatment section includes future care activities for the patient from all [place] treatmentfacilities. This section includes future appointments and future orders which are active, pending or scheduled. Future Appointments This section includes appointments that were scheduled to occur 6 months from the date of the Encounter, up to a maximum of 20 appointments. The data comes from all [place] treatment facilities. Appointment Date/Time Appointment Type Appointme nt Facility Name Oct 10, 2023 12:45 PM AMBULATORY - [place]IC[place] [facility] Oct 31, 2023 01:15 PM AMBULATORY - NONE [place] [facility] Dec 12, 2023 09:40 AM AMBULATORY - MEDIC[place] [facility] Dec 26, 2023 01:15 PM AMBULATORY - MEDICINE [facility] Dec 26, 2023 01:16 PM AMBULATORY - MEDICINE [facility] January 27, 2024 10:30 AM AMBULATORY - MEDICINE [place] [facility] January 30, 2024 12:00 PM AMBULATORY - NONE [place] [facility] January 30, 2024 02:30 PM AMBULATORY - MEDICINE [place] [facility] Mar 05, 2024 12:00 PM AMBULATORY - MEDICINE [place] [facility] Mar 12, 2024 03:30 PM AMBULATORY - MEDICINE [facility] Mar 12, 2024 03:31 PM AMBULATORY - MEDICINE [facility] Mar 14, 2024 08:30 AM AMBULATORY - MEDICINE [place] B[facility]ILL[place] [facility] Advance Directives: All historical and current Section Date Range: From patient's date of to the date document was created. This section includes ALL of a patient's completed or amended [place] Advance and Rescinded Directives. The entries below indicate that a directive exists for the patient, but an actual copy is not included with this document. The data comes from all [place] facilities. Date Advance Directives Provider Source May 07, 2014 ADVANCE DIRECTIVE JUAN GILLETTE [facility] Encounter Notes: All associated encounter notes This section contains the clinical notes associated to the Encounter. Date/Time Encounter Note(s) Provider Source Sep 20, 2023 12:00 AM SCANNED NONVA NOTE : LOCAL TITLE: OUTSIDE MEDICAL RECORD PB STANDARD TITLE: SCANNED NONVA NOTE DATE OF NOTE: SEP 20, 2023 ENTRY DATE: NOV 01, 2023@10:39:04 AUTHOR: MELVIN ENRIQUEZ EXP COSIGNER: URGENCY: STATUS: COMPLETED VistA Imaging - Scanned Document Visit, OZH SCANNED DOCUMENT SIGNATURE NOT REQUIRED Electronically Filed: 11/01/2023 by: MELVIN NEWTON [facility] MELVIN ENRIQUEZ [facility]
--- OUTSIDE RECORDS SUMMARY | 2024-09-07 10:52 | XMS_ITS ---
Author Name [facility] of [place] [place] Organization [facility] [place] Address [address] [place] [address] Care Team Providers Care Home Theater Installer Name Role Phone DRE ALEX Primary Care [...] Member [place] Insurance Provider's Telephone Number Policy Roes's Name Patient's Relationship to Policy Rose MEDICARE (WNR) MEDICARE (M) PART B Mar 04, 2012 PART B [id number] [phone] LEONARD LEWIS PATIENT MEDICARE (WNR) MEDICARE (M) PART A Mar 04, 2012 PART A [id number] [phone] LEONARD LEWIS PATIENT MEDICARE (WNR) MEDICARE (M) PART A Mar 04, 2012 PART A [id number] [phone] LEONARD LEWIS PATIENT MEDICARE (WNR) MEDICARE (M) PART B Mar 04, 2012 PART B [id number] [phone] LEONRAD LEWIS PATIENT MEDICARE (WNR) MEDICARE (M) PART A Mar 04, 2012 PART A [id number] LEONARD LEWIS PATIENT MEDICARE (WNR) MEDICARE (M) PART B Mar 04, 2012 PART B [id number] [phone] LEONARD LEWIS PATIENT -FO R-LIFE [facility] RE FOR LIFE WNR Aug 31, 2016 FOR LIFE [id number] LEONARD LEWIS PATIENT -FO R-LIFE [facility] RE FOR LIFE WNR Aug 31, 2016 FOR LIFE [id number] [phone] LEONARD LEWIS PATIENT Selected Encounter This section includes the information on record at [place] for the Encounter. Date/Time Encounter Type Encounter Description Reason Pro vider Source January 30, 2024 12:00 AM Outpatient Encounter EVENT (HISTORICAL) IHE Encounter Template Text not used by [place] Plan of Treatment: Future Appointments (+ 6 months) and Future Tests (+/- 45 days) The Plan of Treatment section includes future care activities for the patient from all [place] treatmentfacilities. This section includes future appointments and future orders which are active, pending or scheduled. Future Appointments This section includes appointments that were scheduled to occur 6 months from the date of the Encounter, up to a maximum of 20 appointments. The data comes from all [place] treatment facilities. Appointment Date/Time Appointment Type Appointme nt Facility Name Mar 05, 2024 12:00 PM AMBULATORY - [facility]ICINE [place] [facility] Mar 12, 2024 03:30 PM AMBULATORY - MEDICINE [facility] Mar 12, 2024 03:31 PM AMBULATORY - MEDICINE [facility] Mar 14, 2024 08:30 AM AMBULATORY - MEDICINE [place] [facility] Apr 09, 2024 12:00 PM AMBULATORY - MEDICINE [place] [facility] Apr 18, 2024 01:40 PM AMBULATORY - MEDICINE [place] [facility] May 02, 2024 09:41 AM AMBULATORY - MEDICINE [place] [facility] May 02, 2024 01:00 PM AMBULATORY - NONE [place] [facility] May 10, 2024 01:30 PM AMBULATORY - MEDICINE [place] [facility] May 23, 2024 09:00 AM AMBULATORY - MEDICINE [facility] May 30, 2024 09:00 AM [facility]ORY [place]ICINE [facility] Jun 11, 2024 11:30 AM AMBULATORY - NONE [place] [facility] Jul 04, 2024 08:30 AM AMBULATORY - MEDICINE [place] [facility] Lab Results: +/- 30 days of the encounter This section includes the Chemistry and Hematology Lab Results on record with [facility] for the patient. Radiology Reports and Pathology Reports are provided separately, in subsequent sections. Lab Results This section contains the Chemistry/Hematology Results that were resulted 30 days before or 30 daysafter the date of the Encounter. Date/Time Source Result Type Result - Unit Interpretation Reference Range Comment Feb 22, 2024 08:14 AM [facility] HGA1C Specimen Type: BLOOD No comment entered. Ordering Provider: DRE ALEX Report Released Date/Time: Feb 22, 2024 08:13 AM Reporting Lab: [place] [facility] [address] [place] [address] Performing Lab: [place] [facility] [address] [place] [address] HGA1C 5.8 4.0-6.0 Feb 22, 2024 08:14 AM [facility] CHOLESTEROL PANEL (PB) Specimen Type: PLASMA No comment entered. Ordering Provider: DRE ALEX Report Released Date/Time: Feb 22, 2024 08:13 AM Reporting Lab: [place] [facility] [address] [place] [address] Performing Lab: [place] [facility] [address] [place] [address] CHOLESTEROL 86 mg/dL 0-200 TRIGLYCERIDE 71 mg/dL 0-150 CALCULATED LDL 30.8 mg/dL HDL(New) 41.0 mg/dL H >40 HDL % OF TOTAL CHOLESTEROL (PB) 47.7 >25 Feb 22, 2024 08:14 AM [facility] COMPREHENSIVE METABOLIC PANEL Specimen Type: PLASMA No comment entered. Ordering Provider: DRE ALEX Report Released Date/Time: Feb 22, 2024 08:13 AM Reporting Lab: [place] [facility] [address] [place] [address] Performing Lab: [place] [facility] [address] [place] [address] CREATININE 5.13 mg/dL H 0.7-1.3 UREA NITROGEN 31 mg/dL H 9-25 GLUCOSE 101 mg/dL H 72-99 SODIUM 142 meq/L 136-145 POTASSIUM 4.2 meq/L 3.5-5 CHLORIDE 96 meq/L L 98-107 CARBON DIOXIDE 34 meq/L H 22-31 CALCIUM 9.2 mg/dL 8.4-10.4 PROTEIN 6.7 g/dL 6-8.6 ALBUMIN 4.0 g/dL 3.4-5 TOTAL BILIRUBIN 0.6 mg/dL 0.2-1.2 ALKALINE PHOSPHATASE 98 U/L 40-150 AST/SGOT 16 U/L 5-34 ALT/SGPT 28 U/L 8-40 EGFR (CKD-EPI 2020) 11 Advance Directives: All historical and current Section Date Range: From patient's date of to the date document was created. This section includes ALL of a patient's completed or amended [place] Advance and Rescinded Directives. The entries below indicate that a directive exists for the patient, but an actual copy is not included with this document. The data comes from all [place] facilities. Date Advance Directives Provider Source May 07, 2014 ADVANCE DIRECTIVE JUAN GILLETTE [facility] Radiology Reports: +/- 30 days of [...] the Encounter. The data comes from all [place] treatment facilities. Date/Time Radiology Report Provider Source January 30, 2024 10:52 AM LDCT LCS 1, 3 OR 6 MONTH FOLLOW UP: LEONARD LEWIS [id number] -[id number] M Ex Date: JANUARY 30, 2024@10:52 Req Phys: DRE ALEX Loc: PB-ADMIN LUNG SCREENING (Req'g Img Loc: PB-CT IMAGING Service: Unknown LUZ MARIA NEWTON [facility] JIMMY NAM [id number] (Case [id number] COMPLETE) LDCT LCS 1, 3 OR 6 MONTH FOLLOW U(CT Detailed) CPT:95248 Reason for Study: LCS 3 month f/u LRADS 0 Clinical History: 73 yr old smoking hx 1-2ppd since age 15yrs; quit December 2020. LRADS 0 on 10.31.2023 w/rec 3 mo f/u per rad [place] would like exam on or Report Status: Verified Date Reported: JANUARY 30, 2024 Date Verified: JANUARY 30, 2024 Senior Applications Developer E-Sig:/ES/RONI MCKEON Report: EXAM: LDCT LCS 1, 3 OR 6 MONTH FOLLOW UP ADDITIONAL HISTORY: N/A COMPARISON: None PROTOCOL: Screening protocol, low dose, non-contrast CT chest was [facility] the local [facility] in accordance with Lung-Rads 2021. Additional coronal and sagittal reconstructions. MIP reconstructions were reviewed. Secondary computer-aided detection post-processing used. RADIATION DOSE: CTDI(vol): 2.8 mGy DLP: 111.5 mGy*cm INDEX NODULE: Location: Anterior lateral left lung base Series: 8 image: 428 Average diameter: 5.5 mm Volume: 53.5 mm3 Change: Average diameter has increased by 2.6 mm (89.7%) and the volume has increased 41.3 mm3 (338.5%) OTHER NODULES: Previously noted pulmonary nodule in the anterior lateral left lung base has resolved. Pulmonary nodule left upper lung field seen on series 8 image #190 with average diameter of 4.3 mm and volume of 24.2 mm3 without significant change since previous low-dose CT scan. LUNG/AIRWAY FINDINGS: Volume loss left lower lobe similar to previous low-dose CT scan. Area consolidation posterior and lateral left lower lobe appears similar. Exact etiology uncertain. Marked thickening of the bronchi in this area persists. Moderate left pleural effusion which may be loculated without significant change. EMPHYSEMA: Mild HEART, MEDIASTINUM AND LYMPH NODES: Postop changes again seen. VISUAL CORONARY ARTERY CALCIFICATIONS: Severe UPPER ABDOMEN: Status post left nephrectomy and left adrenalectomy. Pancreas small in size. BONES, SOFT TISSUES, AND ADDITIONAL FINDINGS: Degenerative arthritis and degenerative disc disease involving the spine. Impression: LUNG-RADS: 4A: Suspicious. 1. Pulmonary nodules as described above. 2. Volume loss left lower lobe with consolidation posterior and lateral left lower lobe appears similar. Exact etiology uncertain 3. Moderate left pleural effusion which may be loculated without significant change RECOMMENDATION: Pulmonology consult for further evaluation of the findings in the left lower lobe. Follow-up low-dose CT scan in 3 months to reevaluate the pulmonary nodules. LUNG-RADS MODIFIER. S-not related to lung cancer. Marked pleural thickening of the bronchi left lower lobe persists Primary Interpreting Staff: RONI MCKEON, RADIOLOGIST (Senior Applications Developer) /RONI Hi [facility]
--- OUTSIDE RECORDS SUMMARY | 2024-09-07 10:52 | XMS_ITS | Encounter Summary ---
Author Name [facility] [place] Address [address] [place] [address] Care Team Providers Care Panel Maker Name Role Phone DRE ALEX Primary Care [...] PART B Mar 04, 2012 PART B [id number] [phone] LEONARD LEWIS PATIENT MEDICARE (WNR) MEDICARE (M) PART A Mar 04, 2012 PART A [id number] [phone] LEONARD LEWIS PATIENT MEDICARE (WNR) MEDICARE (M) PART A Mar 04, 2012 PART A [id number] LEONARD LEWIS PATIENT MEDICARE (WNR) MEDICARE (M) PART B Mar 04, 2012 PART B [id number] LEONARD LEWIS PATIENT MEDICARE (WNR) MEDICARE (M) PART A Mar 04, 2012 PART A [id number] LEONARD LEWIS PATIENT MEDICARE (WNR) MEDICARE (M) PART B Mar 04, 2012 PART B [id number] [phone] LEONARD LEWIS PATIENT -FO R-LIFE [facility] RE FOR LIFE WNR Aug 31, 2016 FOR LIFE [id number] [phone] LEONARD LEWIS PATIENT -FO R-LIFE TR[facility] RE FOR LIFE WNR Aug 31, 2016 FOR LIFE [id number] [phone] LEONARD LEWIS PATIENT Selected Encounter This section includes the information on record at [place] for the Encounter. Date/Time Encounter Type Encounter Description Reason Provider Source Dec 27, 2023 08:39 AM SPECIAL SUPPLIES PHYS/QHP ADMIN PAT ACTIVTIES (MASNONCT) ICD-10-CM G47.33 Obstructive sleep apnea (adult) (pediatric) VIVIAN BURNETTE IHAby Encounter Template Text not used by [place] Assessments - Encounter Diagnoses This section includes the primary and secondary diagnoses documented for the Encounter. Date/Time Primary/Secondary Diagnosis Diagnosis Name Provider Source Dec 27, 2023 08:40 AM PRIMARY Obstructive sleep apnea (adult) (pediatric) CHANTAL BURNETTE [facility] Plan of Treatment: Future Appointments (+ 6 months) and Future Tests (+/- 45 days) The Plan of Treatment section includes future care activities for the patient from all [place] treatmentfacilities. This section includes future appointments and future orders which are active, pending or scheduled. Future Appointments This section includes appointments that were scheduled to occur 6 months from the date of the Encounter, up to a maximum of 20 appointments. The data comes from all [place] treatment facilities. Appointment Date/Time Appointment Type Appointme nt Facility Name January 27, 2024 10:30 AM AMBULATORY - MEDICINE [place] [facility] January 30, 2024 12:00 PM AMBULATORY - NONE [place] [facility] January 30, 2024 02:30 PM AMBULATORY - MEDICINE [place] [facility] Mar 05, 2024 12:00 PM AMBULATORY - MEDICINE [place] [facility] Mar 12, 2024 03:30 PM AMBULATORY - MEDICINE [facility] Mar 12, 2024 03:31 PM [facility] [place] [facility] Mar 14, 2024 08:30 AM AMBULATORY - MEDICINE [place] [facility] Apr 09, 2024 12:00 PM AMBULATORY - MEDICINE [place] [facility] Apr 18, 2024 01:40 PM AMBULATORY - MEDICINE [place] [facility] May 02, 2024 09:41 AM AMBULATORY - MEDICINE [place] [facility] May 02, 2024 01:00 PM AMBULATORY - NONE [place] [facility] May 10, 2024 01:30 PM AMBULATORY - MEDICINE [place] [facility] May 23, 2024 09:00 AM AMBULATORY - MEDICINE [facility] May 30, 2024 09:00 AM AMBULATORY - MEDICINE [facility] Jun 11, 2024 11:30 AM AMBULATORY - NONE [place] [facility] Social History: Smoking Status (Most current) and Tobacco Use (All prior to encounter date) This section includes the most current, and the historical, smoking and tobacco- related health factors from the [place] facility where the Encounter took place. Current Smoking Status This section includes the most current smoking, or tobacco-related health factor, from the [place] facility where the Encounter took place. Date/Time Current Smoking Status Comment Facil ity Jun 15, 2011 02:49 PM TOBACCO OFFERED PT MEDS (PROVIDE R) [facility] Tobacco Use History This section includes a history of the smoking, or tobacco-related health factors, that were collected on or before the date of the Encounter. The data comes from the [place] facility where the Encounter took place. Date/Time Smoking Status/Tobacco Use Comment F acility Jun 15, 2011 02:49 PM TOBACCO OFFERED PT MEDS (PROVIDE R) [place] [facility] [facility] Jun 15, 2011 02:[address] OP SMOKING CLINIC [facility] Advance Directives: All historical and current Section Date Range: From patient's date of to the date document was created. This section includes ALL of a patient's completed or amended [place] Advance and Rescinded Directives. The entries below indicate that a directive exists for the patient, but an actual copy is not included with this document. The data comes from all [place] facilities. Date Advance Directives Provider Source May 07, 2014 ADVANCE DIRECTIVE JUAN GILLETTEU [facility] Encounter Notes: All associated encounter notes This section contains the clinical notes associated to the Encounter. Date/Time Encounter Note(s) Provider Source Dec 27, 2023 08:39 AM SLEEP MEDICINE NOT E: LOCAL TITLE: CPAP CLINIC NOTE STANDARD TITLE: SLEEP MEDICINE NOTE DATE OF NOTE: DEC 27, 2023@08:39 ENTRY DATE: DEC 27, 2023@08:39:35 AUTHOR: CHANTAL BURNETTE EXP COSIGNER: URGENCY: STATUS: COMPLETED Patient: LEONARD LEWIS ? [id number] Item Delivery Category Quantity Unit Villalta Total Villalta [employer] [id number] HCPCS:[id number] Order #:[id number] Priority 1 1567.50 $1567.50 [employer] [id number] /M/L HCPCS:[id number] Order #:[id number] Priority 1 107.67 $107.67 Totals: 2 $1675.17 Deliver to: Patient Facility [address] [place] [address] [address] [place] [address] Delivery address confirmed /sepideh/ CHANTAL BURNETTE [employer] Signed: 12/27/2023 08:40 CHANTAL BURNETTE [facility]
--- OUTSIDE RECORDS SUMMARY | 2024-09-07 10:52 | XMS_ITS ---
Author Name [facility] Address [address] [place] [address] Care Team Providers Care Cement Finishing Supervisor Name Role Phone DRE ALEX Primary Care [...] PART B Mar 04, 2012 PART B [id number] [facility] LEONARD LEWIS PATIENT MEDICARE (WNR) MEDICARE (M) PART A Mar 04, 2012 PART A [id number] [facility] LEONARD LEWIS PATIENT MEDICARE (WNR) MEDICARE (M) PART B Mar 04, 2012 PART B [id number] [phone] LEONARD LEWIS PATIENT MEDICARE (WNR) MEDICARE (M) PART A Mar 04, 2012 PART A [id number] [facility] [phone] LEONARD LEWIS PATIENT MEDICARE (WNR) MEDICARE (M) PART B Mar 04, 2012 PART B [id number] [phone] LEONARD LEWIS PATIENT MEDICARE (WNR) MEDICARE (M) PART A Mar 04, 2012 PART A [id number] [phone] LEONARD LEWIS PATIENT -FO R-LIFE [facility] RE FOR LIFE WNR Aug 31, 2016 FOR LIFE [id number] [phone] LEONARD LEWIS PATIENT -FO R-LIFE [facility] RE FOR LIFE WNR Aug 31, 2016 FOR LIFE [id number] [phone] LEONARD LEWIS PATIENT Selected Encounter This section includes the information on record at NH for the Encounter. Date/Time Encounter Type Encounter Description Reason Provider Source January 30, 2024 02:30 PM OFF/OP EST JANUARY X REQ PHY/QHP SLEEP MEDICINE ICD-10-CM G47.33 Obstructive sleep apnea (adult) (pediatric) MIREYA RAJAN [facility] Encounter Template Text not used by NH Assessments - Encounter Diagnoses This section includes the primary and secondary diagnoses documented for the Encounter. Date/Time Primary/Secondary Diagnosis Diagnosis Name Provider Source January 30, 2024 02:17 PM PRIMARY Obstructive sleep apnea (adult) (pediatric) MIREYA RAJAN [facility] Plan of Treatment: Future Appointments (+ 6 months) and Future Tests (+/- 45 days) The Plan of Treatment section includes future care activities for the patient from all NH treatmentfacilities. This section includes future appointments and future orders which are active, pending or scheduled. Future Appointments This section includes appointments that were scheduled to occur 6 months from the date of the Encounter, up to a maximum of 20 appointments. The data comes from all [place] treatment facilities. Appointment Date/Time Appointment Type Appointme nt Facility Name Mar 05, 2024 12:00 PM AMBULATORY - [place]IC[facility] [place] [facility] Mar 12, 2024 03:30 PM AMBULATORY - MEDICINE [facility] Mar 12, 2024 03:31 PM AMBULATORY - MEDICINE [facility] Mar 14, 2024 08:30 AM AMBULATORY - [place]IC[place] [facility] Apr 09, 2024 12:00 PM AMBULATORY - [place]IC[place] [facility] Apr 18, 2024 01:40 PM [facility]ORY - [place] [facility] May 02, 2024 09:41 AM AM[facility]AT[facility] - [place] [facility] May 02, 2024 01:00 PM AMBULATORY - NONE [place] [facility] May 10, 2024 01:30 PM AM[facility] [place] [facility] May 23, 2024 09:00 AM AMBULATORY - MEDICINE [facility] May 30, 2024 09:00 AM AMBULATORY - MEDICINE [facility] Jun 11, 2024 11:30 AM AMBULATORY - NONE [place] [facility] Jul 04, 2024 08:30 AM AMBULATORY - MEDIC[place] [facility] Lab Results: +/- 30 days of [...] Range Comment Feb 22, 2024 08:14 [facility] Specimen Type: BLOOD No comment entered. Ordering Provider: DRE ALEX Report Released Date/Time: Feb 22, 2024 08:13 AM Reporting Lab: [place] [facility] [address] [place] [address] Performing Lab: [place] [facility] [address] [place] [address] HGA1C 5.8 4.0-6.0 Feb 22, 2024 08:14 AM [facility] CHOLESTEROL PANEL (PB) Specimen Type: PLASMA No comment entered. Ordering Provider: DRE ALEX Report Released Date/Time: Feb 22, 2024 08:13 AM Reporting Lab: [place] [facility] [address] [place] [address] Performing Lab: [place] [facility] [address] [place] [address] CHOLESTEROL 86 mg/dL 0-200 TRIGLYCERIDE 71 mg/dL 0-150 CALCULATED LDL 30.8 mg/dL HDL(New) 41.0 mg/dL H >40 HDL % OF TOTAL CHOLESTEROL (PB) 47.7 >25 Feb 22, 2024 08:14 AM [facility] COMPREHENSIVE METABOLIC PANEL Specimen Type: PLASMA No comment entered. Ordering Provider: DRE ALEX Report Released Date/Time: Feb 22, 2024 08:13 AM Reporting Lab: [place] [facility] [address] [place] [address] Performing Lab: [place] [facility] [address] [place] [address] CREATININE 5.13 mg/dL H 0.7-1.3 UREA NITROGEN [...] 28 U/L 8-40 EGFR (CKD-EPI 2020) 11 Social History: Smoking Status (Most current) and Tobacco Use (All prior to encounter date) This section includes the most current, and the historical, smoking and tobacco- related health factors from the NH facility where the Encounter took place. Current Smoking Status This section includes the most current smoking, or tobacco-related health factor, from the NH facility where the Encounter took place. Date/Time Current Smoking Status Comment Bobbi dobsony Jun 15, 2011 02:49 PM TOBACCO OFFERED PT MEDS (PROVIDE R) [facility] Tobacco Use History This section includes a history of the smoking, or tobacco-related health factors, that were collected on or before the date of the Encounter. The data comes from the NH facility where the Encounter took place. Date/Time Smoking Status/Tobacco Use Comment Verito acalisha Jun 15, 2011 02:49 PM TOBACCO OFFERED PT MEDS (PROVIDE R) [place] [facility] Jun 15, 2011 02:[address] OP SMOKING CLINIC [facility] Advance Directives: All historical and current Section Date Range: From patient's date of to the date document was created. This section includes ALL of a patient's completed or amended [place] Advance and Rescinded Directives. The entries below indicate that a directive exists for the patient, but an actual copy is not included with this document. The data comes from all NH facilities. Date Advance Directives Provider Source May 07, 2014 ADVANCE DIRECTIVE [facility] [place] [facility] Radiology Reports: +/- 30 days of [...] the Encounter. The data comes from all [place] treatment facilities. Date/Time Radiology Report Provider Source January 30, 2024 10:52 AM LDCT LCS 1, 3 OR 6 MONTH FOLLOW UP: LEONARD LEWIS [facility] [id number] -[id number] M Ex Date: JANUARY 30, 2024@10:52 Req Phys: DRE ALEX Loc: PB-ADMIN LUNG SCREENING (Req'g Img Loc: PB-CT IMAGING Service: Unknown [facility] [place] [address] (Case [id number] COMPLETE) LDCT LCS 1, 3 OR 6 MONTH FOLLOW U(CT Detailed) CPT:89864 Reason for Study: LCS 3 month f/u LRADS 0 Clinical History: 73 yr old smoking hx 1-2ppd since age 15yrs; quit December 2020. LRADS 0 on 10.31.2023 w/rec 3 mo f/u per rad [place] would like exam on or Report Status: Verified Date Reported: JANUARY 30, 2024 Date Verified: JANUARY 30, 2024 Crime Scene Analyst E-Sig:/ES/RONI MCKEON Report: EXAM: LDCT LCS 1, 3 OR 6 MONTH FOLLOW UP ADDITIONAL HISTORY: N/A COMPARISON: None PROTOCOL: Screening protocol, low dose, non-contrast CT chest was performed at the local [place] facility in accordance with Lung-Rads 2021. Additional [...] persists Primary Interpreting Staff: RONI MCKEON, RADIOLOGIST (Crime Scene Analyst) /RONI Hi [facility] Encounter Notes: All associated encounter notes This section contains the clinical notes associated to the Encounter. Date/Time Encounter Note(s) Provider Source January 30, 2024 02:16 PM RESPIRATORY THERAP Y CONSULT: LOCAL TITLE: RESPIRATORY THERAPY ASSESSMENT CONSULT RESULTS UT STANDARD TITLE: RESPIRATORY THERAPY CONSULT DATE OF NOTE: JANUARY 30, 2024@14:16 ENTRY DATE: JANUARY 30, 2024@14:16:06 AUTHOR: MIREYA RAJAN EXP COSIGNER: URGENCY: STATUS: COMPLETED DIAG:DANELLE (Note: Only items marked with X are applicable) Patient educated/demonstration on CPAP/BIPAP regarding: [X] reason [X] use/cleaning/maintenance of equipment [X] safety [X] settings of ASV: EPAP 6-15CM, PS 4-10CM, MAX PRESSURE 25CM AUTO RATE Mask size: Medium FFM Instruction Handout provided. Equipment tested and found to be functional. [X] Patient/Significant other appropriately demonstrated on return ability to setup CPAP/BIPAP, apply mask. [X] Verbalized understanding of instructions Level of Understanding: GOOD RTC for PAP f/u. /es/ MIREYA RAJAN EYEDOTTER REGISTERED RESPIRATORY THERAPIST Signed: 01/30/2024 14:17 MIREYA RAJAN [facility]
--- OUTSIDE RECORDS SUMMARY | 2024-09-07 10:52 | XMS_ITS ---
Author Name [facility] [facility] [place] [facility] [place] [facility] [place] Address [address] [place] [id number] Care Team Providers Care Cio Name Role Phone DRE ALEX Primary Care [...] PART A Mar 04, 2012 PART A [id number] [phone] LEONARD DELGADO PATIENT MEDICARE (WNR) MEDICARE (M) PART B Mar 04, 2012 PART B [id number] LEONARD DELGADO PATIENT MEDICARE (WNR) MEDICARE (M) PART A Mar 04, 2012 PART A [id number] LEONARD DELGADO PATIENT MEDICARE (WNR) MEDICARE (M) PART A Mar 04, 2012 PART A [id number] LEONARD DELGADO PATIENT MEDICARE (WNR) MEDICARE (M) PART B Mar 04, 2012 PART B [id number] [phone] LEONARD DELGADO PATIENT MEDICARE (WNR) MEDICARE (M) PART B Mar 04, 2012 PART B [id number] LEONARD DELGADO PATIENT -FO R-LIFE [facility] RE FOR LIFE WNR Aug 31, 2016 FOR LIFE [id number] [phone] LEONARD DELGADO PATIENT -FO R-LIFE [place] RE FOR LIFE WNR Aug 31, 2016 FOR LIFE [id number] LEONARD DELGADO PATIENT Selected Encounter This section includes the information on record at [place] for the Encounter. Date/Time Encounter Type Encounter Description Reason Provider Source January 31, 2024 08:04 AM HC PRO PHONE CALL 11-20 MIN TELEPHONE/ANCILLAR Y ICD-10-CM R91.1 Solitary pulmonary nodule BRANDON SEPULVEDA Aby Encounter Template Text not used by [place] Assessments - Encounter Diagnoses This section includes the primary and secondary diagnoses documented for the Encounter. Date/Time Primary/Secondary Diagnosis Diagnosis Name Provider Source January 31, 2024 08:04 AM PRIMARY Solitary pulmonary nodule COCOROSENDO MEREDITHMERLIN JAUREGUIAR [facility] Plan of Treatment: Future Appointments (+ [...] PM AMBULATORY - [place]ICINE [place] [facility] Mar 12, 2024 03:30 PM [facility]ATORY - MEDICINE [facility] Mar 12, 2024 03:31 PM AMBULATORY - MEDICINE [facility] Mar 14, 2024 08:30 AM [place]UL[place] [facility] Apr 09, 2024 12:00 PM AMBULATORY - MEDICINE [place] [facility] Apr 18, 2024 01:40 PM AMBULATORY - [place]IC[place] [facility] May 02, 2024 09:41 AM AMBULATORY - [place]IC[place] [facility] May 02, 2024 01:00 PM AMBULATORY - NONE [place] [facility] May 10, 2024 01:30 PM AMBULATORY - [place]ICINE [place] [facility] May 23, 2024 09:00 AM AMBULATORY [place]IC[place] [facility] May 30, 2024 09:00 AM AMBULATORY - MEDICINE [facility] Jun 11, 2024 11:30 AM AMBULATORY - NONE [place] [facility] Jul 04, 2024 08:30 AM AMBULATORY - MEDICINE [place] [facility] Lab Results: +/- 30 days of the encounter This section includes the Chemistry and Hematology Lab Results on record with [place] for the patient. Radiology Reports and Pathology Reports are provided separately, in subsequent sections. Lab Results This section contains the Chemistry/Hematology Results that were resulted 30 days before or 30 daysafter the date of the Encounter. Date/Time Source Result Type Result - Unit Interpretation Reference Range Comment Feb 22, 2024 08:14 AM [facility] HGA1C Specimen Type: BLOOD No comment entered. Ordering Provider: DRE ALEX Report Released Date/Time: Feb 22, 2024 08:13 AM Reporting Lab: [place] [facility] [address] [place] [address] Performing Lab: [place] [facility] [address] [place] [address] HGA1C 5.8 4.0-6.0 Feb 22, 2024 08:14 AM [facility] CB CHOLESTEROL PANEL (PB) Specimen Type: PLASMA No comment entered. Ordering Provider: DRE ALEX Report Released Date/Time: Feb 22, 2024 08:13 AM Reporting Lab: [place] [facility] [address] [place] [address] Performing Lab: [place] [facility] [address] [place] [address] CHOLESTEROL 86 mg/dL 0-200 TRIGLYCERIDE 71 mg/dL 0-150 CALCULATED LDL 30.8 mg/dL HDL(New) 41.0 mg/dL H >40 HDL % OF TOTAL CHOLESTEROL (PB) 47.7 >25 Feb 22, 2024 08:14 AM [facility] COMPREHENSIVE METABOLIC PANEL Specimen Type: PLASMA No comment entered. Ordering Provider: DRE ALEX Report Released Date/Time: Feb 22, 2024 08:13 AM Reporting Lab: [place] [facility] [address] [place] [address] Performing Lab: [place] [facility] [address] [place] [address] CREATININE 5.13 mg/dL H 0.7-1.3 UREA NITROGEN [...] and tobacco- related health factors from the [place] facility where the Encounter took place. Current Smoking Status This section includes the most current smoking, or tobacco-related health factor, from the [place] facility where the Encounter took place. Date/Time Current Smoking Status Comment Facil ity Jun 15, 2011 02:49 PM TOBACCO OFFERED PT MEDS (PROVIDE R) [facility] Tobacco Use History This section includes a history of the smoking, or tobacco-related health factors, that were collected on or before the date of the Encounter. The data comes from the [place] facility where the Encounter took place. Date/Time Smoking Status/Tobacco Use Comment F acility Jun 15, 2011 02:49 PM TOBACCO OFFERED PT MEDS (PROVIDE R) [place] [facility] Jun 15, 2011 02:[address] OP SMOKING CLINIC [facility] Advance Directives: All historical and current [...] May 07, 2014 ADVANCE DIRECTIVE [facility] [place] [facility] Radiology Reports: +/- 30 days [...] the Encounter. The data comes from all [place] treatment facilities. Date/Time Radiology Report Provider Source January 30, 2024 10:52 AM LDCT LCS 1, 3 OR 6 MONTH FOLLOW UP: LEONARD DELGADO [id number] -[id number] M Exm Date: JANUARY 30, 2024@10:52 Req Phys: DRE ALEX Loc: PB-ADMIN LUNG SCREENING (Req'g Img Loc: PB-CT IMAGING Service: Unknown [facility] [id number] (Case [id number] COMPLETE) LDCT LCS 1, 3 OR 6 MONTH FOLLOW U(CT Detailed) CPT:29460 Reason for Study: LCS 3 month f/u LRADS 0 Clinical History: 73 yr old smoking hx 1-2ppd since age 15yrs; quit December 2020. LRADS 0 on 10.31.2023 w/rec 3 mo f/u per rad [place] would like exam on or Report Status: Verified Date Reported: JANUARY 30, 2024 Date Verified: JANUARY 30, 2024 Senior Speech Pathologist E-Sig:/ES/RONI MCKEON Report: EXAM: LDCT LCS 1, 3 OR 6 MONTH FOLLOW UP ADDITIONAL HISTORY: N/A COMPARISON: None PROTOCOL: Screening protocol, low dose, non-contrast CT chest was performed at the local [place] facility in accordance with Lung-Rads 2021. Additional [...] Primary Interpreting Staff: RONI MCKEON, RADIOLOGIST (Senior Speech Pathologist) /RONI Hi [facility] Encounter Notes: All associated encounter notes This section contains the clinical notes associated to the Encounter. Date/Time Encounter Note(s) Provider Source January 31, 2024 11:55 AM ADDENDUM: LOCAL TITLE: Addendum STANDARD TITLE: ADDENDUM DATE OF NOTE: JANUARY 31, 2024@11:55:47 ENTRY DATE: JANUARY 31, 2024@11:55:49 AUTHOR: LARS HOLDER EXP COSIGNER: URGENCY: STATUS: COMPLETED Contacted Dr. Jax Singh, acting as LCS Warehouse Delivery Manager at [facility] regarding econsult recommendations addressing recent LCS LDCT findings. Due to the S findings that refer to ongoing pleural thickening of the bronchi, and not related to the lung cancer screening, a pulmonary consult to address is suggested. Pulmonary nodule tracking and future LCS will stay within [facility] LCS program. PCP to be notified. /es/ Lars Holder RN, MSN, SCHOOL DIRECTOR-C Luz Maria Archerhing [facility] Signed: 01/31/2024 12:02 Receipt Acknowledged By: 02/23/2024 15:54 /es/ DRE ALEX MD --- Original Document --- 01/31/24 LDCT FOLLOW-UP NOTE PB: 73 year old male, former smoker, quit in 2020, reported 1.5ppd x 55 years. has a significant medical hx to include COPD, T2DM, kidney neoplasm (had partial nephrectomy, on transplant list and on dialysis), HTN, CHF, H/O CVA, and PVD. [place] is currently not followed by [facility] Pulmonary. Current LDCT completed 01.30.24, previous 10.31.23, LRAD 0. LCS CLIENT PARTNER E CON to [facility] placed per LCS JAMAL with Y[facility]. Results as follows: [facility] LCS E-Consult Note: NOTE: This is an electronic consult/note performed to aid in the treatment of the patient and is based upon a review of the chart. Under some circumstances, this consult may have been requested by internal protocols. The chart was reviewed in the detail reflected in the note and the recommendations were based on the available information and the specific request. FINDINGS: Reason for request is Lung Rads 4 result/follow up LDCT reviewed: 01-30-2024, 10-31-2023, 10-13-2022, 09-01-2022 1. Left lingular nodule, 2.6 mm -> 5.5 mm (8/428) 2. Remaining subcentimeter pulmonary nodules without substantive change 3. Left basilar pleural-parenchymal effusion and consolidation without substantive change compared to October 2023 IMPRESSION(S): Mr. Delgado is a 73-year-old man with HTN, HLD, CAD, sustained VT s/p ICD, DM, ESRD on HD, DANELLE, PVD, history of left nephrectomy for malignancy, and tobacco use underwent an LDCT that showed a slowly enlarging left lingular nodule. This nodule remains below the threshold for tissue sampling or PET avidity. Recommend repeating LDCT in 3 months to monitor changes and ensure stability. RECOMMENDATION(S): 1. Repeat LDCT in [address] [facility] Thoracic nurse navigators will coordinate these recommendations VISIT TIME: 16 minutes /sepideh/ Chris Singh M.D. Pulmonary/Critical Care Medicine Signed: 01/30/2024 17:06 09:50-10:03 Phone contact to [email or web address] at dialysis; , Doug verified by vet name/. Informed LDCT results and recommendation of 3 month f/u LDCT. Educated regarding lung nodules & reviewed benefits of LCS program. Also educated to LCS services per JAMAL with [facility] LCS Director Internal Audit. Smoking hx: Confirmed continues to refrain from smoking. Quit 2020. Plan: Voiced understanding of all communication, agrees with 3 month f/u plan(Apr 2024); has dialysis M,W,F so Tue or Thur appt for LDCT, denies any questions/concerns and informed to f/u with PCP for any interval questions/concerns. Much gratitude expressed for call. Will update LCS platform/order. FOLLOW-UP TRACKING/SURVEILLANCE of lung nodule that already had initial nodule documentation. Date of most recent follow-up image: Date: January 30, 2024 Follow up LDCT results LRADS 4A Highest risk nodule description: Size in mm: 5.5mm left lung lobe The following incidental findings were noted: Other: pleural thinking of hte bronchi LLL persists I am notifying the Primary Care Provider for information, and for follow-up of incidental findings, if indicated. Plan: Interval until next LDCT scan is due: 3 months Comment: JIA 05.01.24; however, vet has dialysis M,W,F and therefore will request for Thurs 05.02.24 Patient Notification of results: Patient contacted by telephone. Comment: as above /sepideh/ BRANDON LAYTONS BSN RN [facility] V[facility] Spec RNCC Signed: 01/31/2024 10:23 Receipt Acknowledged By: * AWAITING SIGNATURE * DRE ALEX 01/31/2024 11:55 /es/ Lars Holder, RN, MSN, SCHOOL DIRECTOR-C Luz Maria Archerhing [facility] LARS HOLDER [facility] January 31, 2024 08:04 AM PRIMARY CARE DIAGN OSTIC STUDY NOTE: LOCAL TITLE: LDCT FOLLOW-UP NOTE STANDARD TITLE: PRIMARY CARE DIAGNOSTIC STUDY NOTE DATE OF NOTE: JANUARY 31, 2024@08:04 ENTRY DATE: JANUARY 31, 2024@08:04:57 AUTHOR: BRANDON SEPULVEDA EXP COSIGNER: URGENCY: STATUS: COMPLETED LDCT FOLLOW-UP NOTE PB Has ADDENDA 73 year old male, former smoker, quit in 2020, reported 1.5ppd x 55 years. [place] has a significant medical hx to include COPD, T2DM, kidney neoplasm (had partial nephrectomy, on transplant list and on dialysis), HTN, CHF, H/O CVA, and PVD. is currently not followed by [facility] Pulmonary. Current LDCT completed 01.30.24, previous 10.31.23, LRAD 0. LCS CLIENT PARTNER E CON to [facility] placed per LCS JAMAL with [facility]. Results as follows: [facility] LCS E-Consult Note: NOTE: This is an electronic consult/note performed to aid in the treatment of the patient and is based upon a review of the chart. Under some circumstances, this consult may have been requested by internal protocols. The chart was reviewed in the detail reflected in the note and the recommendations were based on the available information and the specific request. FINDINGS: Reason for request is Lung Rads 4 result/follow up LDCT reviewed: 01-30-2024, 10-31-2023, 10-13-2022, 09-01-2022 1. Left lingular nodule, 2.6 mm -> 5.5 mm (8/428) 2. Remaining subcentimeter pulmonary nodules without substantive change 3. Left basilar pleural-parenchymal effusion and consolidation without substantive change compared to October 2023 IMPRESSION(S): Mr. Delgado is a 73-year-old man with HTN, HLD, CAD, sustained VT s/p ICD, DM, ESRD on HD, DANELLE, PVD, history of left nephrectomy for malignancy, and tobacco use underwent an LDCT that showed a slowly enlarging left lingular nodule. This nodule remains below the threshold for tissue sampling or PET avidity. Recommend repeating LDCT in 3 months to monitor changes and ensure stability. RECOMMENDATION(S): 1. Repeat LDCT in [address] [facility] Thoracic nurse navigators will coordinate these recommendations VISIT TIME: 16 minutes /sepideh/ Chris Singh M.D. Pulmonary/Critical Care Medicine Signed: 01/30/2024 17:06 09:50-10:03 Phone contact to [email or web address] at dialysis; , Doug verified by vet name/. Informed LDCT results and recommendation of 3 month f/u LDCT. Educated regarding lung nodules & reviewed benefits of LCS program. Also educated to LCS services per JAMAL with LCS Director Internal Audit. Smoking hx: Confirmed continues to refrain from smoking. Quit 2020. Plan: Voiced understanding of all communication, agrees with 3 month f/u plan(Apr 2024); has dialysis M,W,F so Tue or Thur appt for LDCT, denies any questions/concerns and informed to f/u with PCP for any interval questions/concerns. Much gratitude expressed for call. Will update LCS platform/order. FOLLOW-UP TRACKING/SURVEILLANCE of lung nodule that already had initial nodule documentation. Date of most recent follow-up image: Date: January 30, 2024 Follow up LDCT results LRADS 4A Highest risk nodule description: Size in mm: 5.5mm left lung lobe The following incidental findings were noted: Other: pleural thinking of hte bronchi LLL persists I am notifying the Primary Care Provider for information, and for follow-up of incidental findings, if indicated. Plan: Interval until next LDCT scan is due: 3 months Comment: JIA 8..24; however, vet has dialysis M,W,F and therefore will request for Thurs 824 Patient Notification of results: Patient contacted by telephone. Comment: as above /sepideh/ BRANDON CORDERON RN [facility] V15 [facility] Spec RNCC Signed: 01/31/2024 10:23 Receipt Acknowledged By: 02/23/2024 15:58 /es/ DRE ALEX MD 01/31/2024 11:55 /es/ Lars Holder, RN, MSN, SCHOOL DIRECTOR-C [facility] 03/02/2024 09:59 /es/ TIFFANY WELLS, RN [facility] 01/31/2024 ADDENDUM STATUS: COMPLETED Contacted Dr. Jax Singh, acting as LCS Warehouse Delivery Manager at [facility] regarding econsult recommendations addressing recent LCS LDCT findings. Due to the S findings that refer to ongoing pleural thickening of the bronchi, and not related to the lung cancer screening, a pulmonary consult to address is suggested. Pulmonary nodule tracking and future LCS will stay within [facility] LCS program. PCP to be notified. /sepideh/ Lars Holder, RN, MSN, SCHOOL DIRECTOR-C Luz Maria Newton [facility] Signed: 01/31/2024 12:02 Receipt Acknowledged By: 02/23/2024 15:54 /es/ DRE ALEX MD 02/23/2024 ADDENDUM STATUS: COMPLETED In: Please call the patient and let him know Through LDCT a recommendation for pulmonary consult for pleural thickening of bronchus is recommended. Will place community care consult. /es/ DRE ALEX MD Signed: 02/23/2024 15:56 BRANDON SEPULVEDA [facility]
--- OUTSIDE RECORDS SUMMARY | 2024-09-07 10:52 | XMS_ITS | Encounter Summary ---
Author Name [facility] [place] [facility] [place] [facility] [facility] [place] Address [address] [place] [address] Care Team Providers Care Forensic Science Examiner Name Role Phone DRE ALEX Primary Care [...] PART A Mar 04, 2012 PART A [id number] LEONARD LEWIS PATIENT MEDICARE (WNR) MEDICARE (M) PART B Mar 04, 2012 PART B [id number] [phone] LEONARD LEWIS PATIENT MEDICARE (WNR) MEDICARE (M) PART A Mar 04, 2012 PART A [id number] LEONARD LEWIS PATIENT MEDICARE (WNR) MEDICARE (M) PART B Mar 04, 2012 PART B [id number] [phone] LEONARD LEWIS PATIENT MEDICARE (WNR) MEDICARE (M) PART B Mar 04, 2012 PART B [id number] [phone] LEONARD LEWIS PATIENT MEDICARE (WNR) MEDICARE (M) PART A Mar 04, 2012 PART A [id number] [phone] LEONARD LEWIS PATIENT -FO R-LIFE [facility] RE FOR LIFE WNR Aug 31, 2016 FOR LIFE [id number] [phone] LEONARD LEWIS PATIENT -FO R-LIFE [place] RE FOR LIFE WNR Aug 31, 2016 FOR LIFE [id number] LEONARD LEWIS PATIENT Selected Encounter This section includes the information on record at [place] for the Encounter. Date/Time Encounter Type Encounter Description Reason Pro vider Source January 26, 2024 11:05 AM Outpatient Encounter ADMIN PAT ACTIVTIES (MASNONCT) IHE Encounter Template Text not used by [place] Plan of Treatment: Future Appointments (+ 6 months) and Future Tests (+/- 45 days) The Plan of Treatment section includes future care activities for the patient from all [place] treatmentfacilities. This section includes future appointments and future orders which are active, pending or scheduled. Future Appointments This section includes appointments that were scheduled to occur 6 months from the date of the Encounter, up to a maximum of 20 appointments. The data comes from all [place] treatment facilities. Appointment Date/Time Appointment Type Appointme nt Facility Name January 27, 2024 10:30 AM AMBULATORY [place]IC[place] [facility] January 30, 2024 12:00 PM AMBULATORY - NONE [place] [facility] January 30, 2024 02:30 PM AM[facility]ORY - [place]IC[place] [facility] Mar 05, 2024 12:00 PM AMBULATORY - MEDIC[place] [facility] Mar 12, 2024 03:30 PM AMBULATORY - MEDICINE [facility] Mar 12, 2024 03:31 PM AMBULATORY - MEDICINE [facility] Mar 14, 2024 08:30 AM AMBULATORY - [place]IC[place] [facility] Apr 09, 2024 12:00 PM AMBULATORY - MEDIC[place] [facility] Apr 18, 2024 01:40 PM AMBULATORY - [place]IC[place] [facility] May 02, 2024 09:41 AM AMBULATORY - [place]IC[place] [facility] May 02, 2024 01:00 PM [place] [facility] May 10, 2024 01:30 PM [place] [facility] May 23, 2024 09:00 AM [facility] [place] [facility] [facility] May 30, 2024 09:00 AM [facility] [place] [facility] [facility] Jun 11, 2024 11:30 AM [place]ORY - [place]ONE [place] [facility] Jul 04, 2024 08:30 AM AMB[facility]ATORY - [place]IC[place] [facility] Lab Results: +/- 30 days of the encounter This section includes the Chemistry and Hematology Lab Results on record with [place] for the patient. Radiology Reports and Pathology Reports are provided separately, in subsequent sections. Lab Results This section contains the Chemistry/Hematology Results that were resulted 30 days before or 30 daysafter the date of the Encounter. Date/Time Source Result Type Result - Unit Interpretation Reference Range Comment Feb 22, 2024 08:14 AM [facility] HGA1C Specimen Type: BLOOD No comment entered. Ordering Provider: DRE ALEX Report Released Date/Time: Feb 22, 2024 08:13 AM Reporting Lab: [place] [facility] [address] [place] [address] Performing Lab: [place] [facility] [address] [place] [address] HGA1C 5.8 4.0-6.0 Feb 22, 2024 08:14 AM [facility] CHOLESTEROL PANEL (PB) Specimen Type: PLASMA No comment entered. Ordering Provider: DRE ALEX Report Released Date/Time: Feb 22, 2024 08:13 AM Reporting Lab: [place] [facility] [address] [place] [address] Performing Lab: [place] [facility] [address] [place] [address] CHOLESTEROL 86 mg/dL 0-200 TRIGLYCERIDE 71 mg/dL 0-150 CALCULATED LDL 30.8 mg/dL HDL(New) 41.0 mg/dL H >40 HDL % OF TOTAL CHOLESTEROL (PB) 47.7 >25 Feb 22, 2024 08:14 AM [facility] COMPREHENSIVE METABOLIC PANEL Specimen Type: PLASMA No comment entered. Ordering Provider: DRE ALEX Report Released Date/Time: Feb 22, 2024 08:13 AM Reporting Lab: [facility] [place] [facility] [address] [place] [address] Performing Lab: [facility] [place] [facility] [address] [place] [address] CREATININE 5.13 mg/dL H 0.7-1.3 UREA NITROGEN [...] ALL of a patient's completed or amended [place] Advance and Rescinded Directives. The entries below indicate that a directive exists for the patient, but an actual copy is not included with this document. The data comes from all [place] facilities. Date Advance Directives Provider Source May 07, 2014 ADVANCE DIRECTIVE JUAN GILLETTE [facility] Radiology Reports: +/- 30 days [...] the Encounter. The data comes from all [place] treatment facilities. Date/Time Radiology Report Provider Source January 30, 2024 10:52 AM LDCT L[facility] 1, 3 OR 6 MONTH FOLLOW UP: LEONARD LEWIS [id number] -[id number] M Ex Date: JANUARY 30, 2024@10:52 Req Phys: DRE ALEX Loc: PB-ADMIN LUNG SCREENING (Req'g Img Loc: PB-CT IMAGING Service: Unknown [facility]IA [place] [facility] R[place]ARDO [place], JIMMY [id number] (Case [id number] COMPLETE) LDCT LCS 1, 3 OR 6 MONTH FOLLOW U(CT Detailed) CPT:97957 Reason for Study: LCS 3 month f/u LRADS 0 Clinical History: 73 yr old smoking hx 1-2ppd since age 15yrs; quit December 2020. LRADS 0 on 10.31.2023 w/rec 3 mo f/u per rad [place] would like exam on or Report Status: Verified Date Reported: JANUARY 30, 2024 Date Verified: JANUARY 30, 2024 Detacker E-Sig:/ES/RONI MCKEON Report: EXAM: LDCT LCS 1, 3 OR 6 MONTH FOLLOW UP ADDITIONAL HISTORY: N/A COMPARISON: None PROTOCOL: Screening protocol, low dose, non-contrast CT chest was performed at the local [place] facility in accordance with Lung-Rads 2021. Additional [...] persists Primary Interpreting Staff: RONI MCKEON, RADIOLOGIST (Detacker) /RONI Hi [facility] Encounter Notes: All associated encounter notes This section contains the clinical notes associated to the Encounter. Date/Time Encounter Note(s) Provider Source January 26, 2024 11:05 AM ADMINISTRATIVE NOT E: LOCAL TITLE: ADMINISTRATIVE NOTE PB STANDARD TITLE: ADMINISTRATIVE NOTE DATE OF NOTE: JANUARY 26, 2024@11:05 ENTRY DATE: JANUARY 26, 2024@11:05:57 AUTHOR: BRANDI THOMPSON EXP COSIGNER: URGENCY: STATUS: COMPLETED Left voicemail to remind of CPAP appointment. Appointment Date: 01/30/2024 Appointment Time: 2:30 Notified to check in for appointment on the first floor in [facility]. /sepideh/ BRANDI THOMPSON Signed: 01/26/2024 11:06 BRANDI THOMPSON [facility]
--- OUTSIDE RECORDS SUMMARY | 2024-09-07 10:52 | XMS_ITS | Encounter Summary ---
Author Name [facility] [place] Organization [facility] [place] Address [address] [place] [address] Care Team Providers Care Assembly Inspector Name Role Phone DRE ALEX Primary [...] PART A Mar 04, 2012 PART A [id number] [phone] ALONSO DELGADO PATIENT MEDICARE (WNR) MEDICARE (M) PART B Mar 04, 2012 PART B [id number] [phone] ALONSO DELGADO PATIENT MEDICARE (WNR) MEDICARE (M) PART A Mar 04, 2012 PART A [id number] [phone] ALONSO DELGADO PATIENT MEDICARE (WNR) MEDICARE (M) PART B Mar 04, 2012 PART B [id number] [phone] ALONSO DELGADO PATIENT MEDICARE (WNR) MEDICARE (M) PART B Mar 04, 2012 PART B [id number] ALONSO DELGADO PATIENT MEDICARE (WNR) MEDICARE (M) PART A Mar 04, 2012 PART A [id number] ALONSO DELGADO PATIENT -FO R-LIFE [facility] RE FOR LIFE WNR Aug 31, 2016 FOR LIFE [id number] [phone] ALONSO DELGADO PATIENT -FO R-LIFE [facility] RE FOR LIFE WNR Aug 31, 2016 FOR LIFE [id number] ALONSO DELGADO PATIENT Selected Encounter This section includes the information on record at [place] for the Encounter. 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 This section includes future appointments and future orders which are active, pending or scheduled. Future Appointments This section includes appointments that were scheduled to occur 6 months from the date of the Encounter, up to a maximum of 20 appointments. The data comes from all [place] treatment facilities. Appointment Date/Time Appointment Type Appointme nt Facility Name January 27, 2024 10:30 AM AMBULATORY - MEDICINE [facility] January 30, 2024 12:00 PM AMBULATORY - NONE [facility] January 30, 2024 02:30 PM AMBULATORY - MEDICINE [facility] Mar 05, 2024 12:00 PM AMBULATORY - MEDICINE [facility] Mar 12, 2024 03:30 PM AMBULATORY - MEDICINE [facility] Mar 12, 2024 03:31 PM AMBULATORY - MEDICINE [facility] Mar 14, 2024 08:30 AM AMBULATORY - MEDICINE [facility] Apr 09, 2024 12:00 PM AMBULATORY - MEDICINE [facility] Apr 18, 2024 01:40 PM AMBULATORY - MEDICINE [facility] May 02, 2024 09:41 AM AMBULATORY - MEDICINE [facility] May 02, 2024 01:00 PM AMBULATORY - NONE [facility] May 10, 2024 01:30 PM AMBULATORY - MEDICINE [facility] May 23, 2024 09:00 AM AMBULATORY - MEDICINE [facility] May 30, 2024 09:00 AM AMBULATORY - MEDICINE [facility] Jun 11, 2024 11:30 AM AMBULATORY - NONE [facility] Social History: Smoking Status (Most current) and Tobacco Use (All prior to encounter date) This section includes the most current, and the historical, smoking and tobacco- related health factors from the [place] facility where the Encounter took place. Current Smoking Status This section includes the most current smoking, or tobacco-related health factor, from the [place] facility where the Encounter took place. Date/Time Current Smoking Status Comment Bobbi kemp Apr 26, 2023 02:30 PM VA-TOBACCO FORMER USER [facility] Tobacco Use History This section includes a history of the smoking, or tobacco-related health factors, that were collected on or before the date of the Encounter. The data comes from the [place] facility where the Encounter took place. Date/Time Smoking Status/Tobac co Use Comment Facility Apr 26, 2023 02:30 PM VA-TOBACCO QUIT 1 TO < 5 YRS [facility] May 26, 2022 09:00 AM VA-TOBACCO FORMER USER [facility] May 26, 2022 09:00 AM VA-TOBACCO QUIT 1 TO < 5 YRS [facility] May 06, 2021 10:30 AM VA-TOBACCO USE 30 YEARS OR MORE [facility] May 06, 2021 10:30 AM VA-TOBACCO USE ADVICE [facility] May 06, 2021 10:30 AM VA-TOBACCO USE STRATEGIC BUYER NO [facility] May 06, 2021 10:30 AM VA-TOBACCO USE MED NO [facility] May 06, 2021 10:30 AM VA-TOBACCO USE WI 30 MIN OF WAKEUP [facility] May 06, 2021 10:30 AM VA-TOBACCO USER EVERY DAY [facility] Oct 22, 2019 10:03 AM VA-TOBACCO USE 30 YEARS OR MORE [facility] Oct 22, 2019 10:03 AM VA-TOBACCO USE ADVICE [facility] Oct 22, 2019 10:03 AM VA-TOBACCO USE STRATEGIC BUYER NO [facility] Oct 22, 2019 10:03 AM VA-TOBACCO USE MED NO [facility] Oct 22, 2019 10:03 AM VA-TOBACCO USE WI 30 MIN OF WAKEUP [facility] Oct 22, 2019 10:03 AM VA-TOBACCO USER EVERY DAY [facility] Apr 18, 2019 10:01 AM CURRENT NON-TOBACC O USER-HX OF USE [facility] Apr 18, 2019 10:01 AM CURRENT TOBACCO USER [facility] Apr 18, 2019 10:01 AM VA-TOBACCO USE [address] [facility] Apr 18, 2019 10:01 AM VA-TOBACCO USE ADVICE [facility] Apr 18, 2019 10:01 AM VA-TOBACCO USE STRATEGIC BUYER NO [facility] Apr 18, 2019 10:01 AM VA-TOBACCO USE MED NO [facility] Apr 18, 2019 10:01 AM VA-TOBACCO USE WI 30 MIN OF WAKEUP [facility] Apr 18, 2019 10:01 AM VA-TOBACCO USER EVERY DAY [facility] Mar 18, 2019 10:21 AM CURRENT TOBACCO USER [facility] Sep 18, 2018 09:56 AM CURRENT NON-TOBACC O USER-HX OF USE [facility] Jun 19, 2018 10:55 AM CURRENT TOBACCO USER [facility] Jun 19, 2018 10:55 AM CURRENT TOBACCO US ER (NOT READY TO QUIT) [facility] Jun 19, 2018 10:55 AM TOBACCO CESSATION REFERRAL DECLINED [facility] Jun 19, 2018 10:55 AM TOBACCO MEDS OFFER ED BUT DECLINED [facility] Jun 19, 2018 10:55 AM TOBACCO USER OFFERED MEDS [facility] Mar 13, 2018 11:20 AM CURRENT TOBACCO USER [facility] Mar 13, 2018 11:20 AM CURRENT TOBACCO US ER (NOT READY TO QUIT) [facility] Mar 13, 2018 11:20 AM TOBACCO CESSATION REFERRAL DECLINED [facility] Mar 13, 2018 11:20 AM TOBACCO MEDS OFFER ED BUT DECLINED [facility] Mar 13, 2018 11:20 AM TOBACCO USER OFFERED MEDS [facility] Oct 04, 2017 02:34 PM CURRENT TOBACCO USER [facility] Oct 04, 2017 02:34 PM CURRENT TOBACCO US ER (NOT READY TO QUIT) [facility] Oct 04, 2017 02:34 PM TOBACCO CESSATION REFERRAL DECLINED [facility] Oct 04, 2017 02:34 PM TOBACCO MEDS OFFER ED BUT DECLINED [facility] Oct 04, 2017 02:34 PM TOBACCO USER OFFERED MEDS [facility] Oct 02, 2015 11:06 AM QUIT TOBACCO >7 YEARS AGO [facility] Sep 08, 2014 09:56 AM CURRENT TOBACCO USER [facility] Sep 08, 2014 09:[address] [facility]MO[facility] Aug 21, 2013 08:15 AM CURRENT TOBACCO USER [facility] Aug 21, 2013 08:[address] [facility] January 23, 2012 02:12 PM CURRENT TOBACCO USER [facility] January 23, 2012 02:12 PM TOBACCO MEDS OFFER ED BUT DECLINED [facility] January 23, 2012 02:12 PM TOBACCO OFFERED PT MEDS (PROVIDER) [facility] January 23, 2012 02:[address] [facility] Jul 27, 2011 08:46 AM TOBACCO MEDS OFFER ED BUT DECLINED [facility] Jul 27, 2011 08:46 AM TOBACCO OFFERED PT MEDS (PROVIDER) [facility] Jul 27, 2011 08:[address] [facility] May 20, 2011 11:24 AM TOBACCO MEDS OFFER ED BUT DECLINED [facility] May 20, 2011 11:24 AM TOBACCO OFFERED PT MEDS (PROVIDER) [facility] May 20, 2011 11:[address] [facility]MO[facility] CLINIC [facility] January 17, 2011 08:35 AM CURRENT [facility] January 17, 2011 08:[address] [facility]MOKING CLINIC [facility] Jul 12, 2010 01:47 PM TOB INFO ON NON-VA STOP SMOKING CLINIC will start smoking cessation classes 2010 [facility] Jul 12, 2010 01:47 PM TOBACCO MEDS OFFER ED BUT DECLINED [facility] Jul 12, 2010 01:47 PM TOBACCO OFFERED PT MEDS (PROVIDER) declined [facility] Jul 12, 2010 01:[address] [facility] will start smoking cessation classes, Sep 08, 2010 [facility] Dec 09, 2009 02:09 PM CURRENT TOBACCO USER [facility] Dec 09, 2009 02:09 PM TOBACCO OFFERED PT MEDS (PROVIDER) [facility] Dec 09, 2009 02:[address] [facility]MOKING CLINIC [facility] Dec 09, 2009 02:09 PM TOBACCO OFFERRED P T MEDS (PROVIDER) [facility] Advance Directives: All historical and current Section Date Range: From patient's date of to the date document was created. This section includes ALL of a patient's completed or amended [place] Advance and Rescinded Directives. The entries below indicate that a directive exists for the patient, but an actual copy is not included with this document. The data comes from all [place] facilities. Date Advance Directives Provider Source May 07, 2014 ADVANCE DIRECTIVE JUAN GILLETTE ALDEN [facility] Encounter Notes: All associated encounter notes This section contains the clinical notes associated to the Encounter. Date/Time Encounter Note(s) Provider Source Feb 08, 2024 10:32 AM NURSING PROGRESS N OTE: LOCAL TITLE: NURSING NOTE PB STANDARD TITLE: NURSING PROGRESS NOTE DATE OF NOTE: FEB 08, 2024@10:32 ENTRY DATE: FEB 08, 2024@10:33:01 AUTHOR: TIFFANY LUKE COSIGNER: URGENCY: STATUS: COMPLETED Discussed following test results with . He is requesting a pulmonary provider locally Requests pulmonary consult for HIRAL Donaldson. I will forward to PACT PCP. ALONSO DELGADO [address], [place] [address] Dear Alonso Delgado, I would like to update you on your recent test results. OTHER TEST RESULTS RADIOLOGY (NON-INVASIVE TEST RESULTS): PLAN Please continue your treatment as we discussed during your visit. If you have any questions please call your clinical case manager. I look forward to seeing you at your next clinic appointment. Thank you for choosing the [facility] for your healthcare. I have reviewed your test results and we need to get additional testing done as follows: repeat lcdt in 3 months = due 04/2024 Follow-up low-dose CT scan in 3 months to reevaluate the pulmonary nodules. I have reviewed your test results and we need you to meet with a resume specialist specialist. Pulmonology consult for further evaluation of the findings in the left lower lobe. FUTURE APPOINTMENTS: 02/27/2024 08:30 PB-JT CVT PACT DELTA(PRO 02/27/2024 08:31 PB-JT CVT PACT DELTA(PAT 02/29/2024 12:00 PB-SLEEP MED CPAP 05/23/2024 09:00 [facility] ( 05/30/2024 09:00 PB-JT PACT DELTA PCP Team: Please call the patient and discuss above with him. And can see if he wants to stay in the community or continue with the [facility] for pulmonary consult Sincerely, ALONSO CHOI MD /addie WELLS, [facility] Signed: 02/08/2024 10:37 Receipt Acknowledged By: * AWAITING SIGNATURE * DRE ALEX [facility]OR[facility] Feb 07, 2024 03:36 PM NURSING PROGRESS N OTE: LOCAL TITLE: NURSING NOTE PB STANDARD TITLE: NURSING PROGRESS NOTE DATE OF NOTE: FEB 07, 2024@15:36 ENTRY DATE: FEB 07, 2024@15:36:49 AUTHOR: TIFFANY LUKE EXP COSIGNER: URGENCY: STATUS: COMPLETED Called to discuss test results letter, call goes to [facility]. Left message requesting return call. /addie WELLS, [facility] Signed: 02/07/2024 15:37 TIFFANY LUKE [facility] January 05, 2024 03:10 PM PRIMARY CARE MEDIC ATION MGT NOTE: LOCAL TITLE: MEDICATION RENEWAL/REFILL PB STANDARD TITLE: PRIMARY CARE MEDICATION MGT NOTE DATE OF NOTE: JANUARY 05, 2024@15:10 ENTRY DATE: JANUARY 05, 2024@15:11:02 AUTHOR: TIFFANY LUKE EXP COSIGNER: URGENCY: STATUS: COMPLETED ALONSO DELGADO has contacted the Primary Care Clinic and is requesting that the following prescription(s) be renewed. The patient reports that he/she is currently LOW on his/her supply of medication. He/she is requesting a new supply be mailed by January MEDICATION REQUESTED: NEPHRO-ZIA TAB RENAL MULTIVIT W/1MG OR LESS FA TAB TAKE 1 TABLET BY MOUTH ONCE A DAY Quantity: 100 Refills: 3 PANCRELIPASE (CREON) [id number] CAP,EC CREON 12,000UNIT EC CAP TAKE 3 CAPSULES BY MOUTH THREE TIMES A DAY BEFORE MEALS FOR PANCREATIC ENZYME REPLACEMENT. TAKE WITH FOOD DIRECTED. Quantity: 810 Refills: 3 Recall visit scheduled? Future visits: 01/30/24 12:00 pm PB-CT APPT(NC) [phone] 01/30/24 2:30 pm PB-SLEEP MED CPAP [phone] 02/27/24 8:30 am PB-JT CVT PACT DELTA(MD [phone] 02/27/24 8:31 am PB-JT CVT PACT DELTA(PA [phone] 05/23/24 9:00 am [facility] [phone] 05/30/24 9:00 am PB-JT PACT DELTA PCP [phone] ====== The following is informational only for those patients that are on long-term opiate therapy: Opioid Consent: No data available for: CONSENT FOR LONG-TERM OPIOIDS FOR PAIN No drugs in class: CN101 (OPIOID ANALGESICS) Last UDS: Collection DT Specimen Test Name Result Units Ref Range 11/11/2021 07:59 URINE CREATuF 61.52 mg/dL Benzodiazipines: No drugs in class: CN302 (BENZODIAZEPINE DERIVATIVE SEDATIVES/HYPNOTICS) /sepideh/ TIFFANY LUKE BSRiccardo, RN [facility] Signed: 01/05/2024 15:11 Receipt Acknowledged By: 01/11/2024 09:39 /sepideh/ TIFFANY BRANDON MD [facility] CBEUL[facility]IA Dec 26, 2023 02:05 PM PRIMARY CARE PROGR ESS NOTE: LOCAL TITLE: PRIMARY CARE CLINIC PROGRESS NOTE PB STANDARD TITLE: PRIMARY CARE PROGRESS NOTE DATE OF NOTE: DEC 26, 2023@14:05 ENTRY DATE: DEC 26, 2023@14:05:24 AUTHOR: DRE ALEX COSIGNER: URGENCY: STATUS: COMPLETED PRIMARY CARE CLINIC PROGRESS NOTE PB Has ADDENDA [place] is presenting to the clinic today for his/her Telehealth appointment as scheduled. was assured that the Telehealth visit is a private, confidential clinical encounter and will not be recorded. The Telehealth process, procedures and expectations were explained to the patient, allowing time to voice any concerns. [place] voiced understanding and consented to the Clinic visit. The visit proceeded without difficulty. DATE & TIME:Dec@14:05 CHIEF COMPLAINT: acute depression HISTORY OF PRESENT ILLNESS: stopped it buy another doctor in [place] PAST MEDICAL HISTORY: 1) DM - Diabetes mellitus (SNOMED CT 13840328) 2) Hearing Loss, Sensorineural, Combined Types 3) Tinnitus, NOS 4) Leg Pain 5) Hyperlipidemia (SNOMED CT 08813914) 6) Chronic obstructive airway disease (SNOMED CT 70071572) 7) Pain in Joint, site unspecified (ICD-9-CM 719.40) 8) Gout (SNOMED CT 80149615) 9) Acute prostatitis (SNOMED CT 64528155) 10) Renal mass (SNOMED CT 145288478) 11) Pancreatitis (SNOMED CT 95801902) 12) Biliary calculus (SNOMED CT 924538144) 13) Primary malignant neoplasm of kidney (SNOMED CT 95012610) 14) Malignant tumor of urinary bladder (SNOMED CT 100232567) 15) H/O: TIA (SNOMED CT 134268082) 16) Dizziness 17) Essential hypertension (SNOMED CT 49172240) 18) Chronic pancreatitis 19) 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 heart failure 20) History of partial nephrectomy 21) History of appendectomy 22) History of cholecystectomy 23) Multiple acquired kidney cysts 24) Dependence on renal dialysis 25) Peripheral vascular disease 26) Elderly fall 27) CAD - Coronary Artery Disease (SCT 81323539) 28) H/O: Stroke (SCT 623820255) 29) ldct sc rng 30) elevated ferritin 31) Cardiac defibrillator in situ 32) Hemorrhagic cystitis 33) Aortic aneurysm screening normal 34) Urinary tract infectious disease 35) disabilty plates 36) Anemia 37) Exposure to potentially hazardous substance Allergies: Patient has answered NKA MEDIACTIONS: Active Outpatient Medications (including Supplies): Active Outpatient Medications Status 1) ACCU-CHEK GUIDE (GLUCOSE) TEST STRIP USE 1 STRIP FOR ACTIVE BLOOD TEST FOUR TIMES A DAY FOR BLOOD SUGAR MONITORING 2) ACETAMINOPHEN 325MG TAB TAKE TWO TABLETS BY MOUTH ACTIVE FOUR TIMES A DAY NEEDED FOR PAIN CAUTION: DO NOT EXCEED 4000MG PER DAY ACETAMINOPHEN (APAP) FROM ALL MEDS. 3) ALBUTEROL 90MCG (CFC-F) 200D ORAL INHL INHALE 2 PUFFS ACTIVE ORAL INHALATION FOUR TIMES A DAY NEEDED FOR COPD SHAKE WELL. RINSE MOUTHPIECE FREQUENTLY TO PREVENT CLOGGING. 4) CARVEDILOL 25MG TAB TAKE ONE-HALF TABLET BY MOUTH ACTIVE TWICE A DAY FOR HIGH BLOOD PRESSURE TAKE WITH FOOD. 5) CHOLECALCIF 50MCG (D3-2,000UNIT) TAB TAKE ONE TABLET ACTIVE BY MOUTH ONCE A DAY FOR VITAMIN D SUPPLEMENTATION 6) CLOPIDOGREL BISULFATE 75MG TAB TAKE ONE TABLET BY ACTIVE MOUTH ONCE A DAY 7) COLCHICINE 0.6MG TAB TAKE ONE-HALF TABLET BY MOUTH ACTIVE TWO TIMES PER WEEK FOR GOUT (STOP MED AND CONTACT PROVIDER AT FIRST SIGN OF NAUSEA, VOMITING OR DIARRHEA) 8) FERROUS SULFATE 325MG TAB TAKE ONE TABLET BY MOUTH ACTIVE TWICE A DAY FOR IRON DEFICIENCY ANEMIA 9) LIDOCAINE 2.5/PRILOCAINE 2.5% CREAM APPLY LIGHTLY TO ACTIVE AFFECTED AREA(S) DIRECTED NEEDED BEFORE NEEDLE STICK 10) NEEDLE,PEN 31G,8MM USE 1 NEEDLE UNDER THE SKIN FOUR ACTIVE TIMES A DAY FOR INJECTION 11) OMEPRAZOLE 20MG EC CAP TAKE ONE CAPSULE BY MOUTH ACTIVE EVERY MORNING BEFORE A MEAL TO LOWER STOMACH ACID. TAKE 30 MINUTES PRIOR TO FOOD. 12) SEVELAMER CARBONATE 800MG TAB TAKE THREE TABLETS BY ACTIVE MOUTH THREE TIMES A DAY WITH MEAL(S) FOR HYPERPHOSPHATEMIA. TAKE WITH FOOD. 13) SODIUM BICARBONATE 650MG TAB TAKE ONE TABLET BY MOUTH ACTIVE FOUR TIMES A DAY FOR DIALYSIS 14) TAMSULOSIN HCL 0.4MG CAP TAKE TWO CAPSULES BY MOUTH ACTIVE EVERY EVENING FOR BENIGN PROSTATIC HYPERPLASIA APPROXIMATELY 30 MINUTES AFTER THE SAME MEAL EACH DAY (FOR PROSTATE) REVIEW OF SYSTEMS: Review of Systems Systemic: Denies fatique, fever, chills, or weight loss CV: Denies chest pain, palpitations Pulm: Denies hemoptysis, wheezing GI: Denies constipation, bloody stools. Musculoskeletal: Denies swelling Neuro: Denies slurred speech Skin: Denies abnormal lesions, denies any new rashes PSYCH: Denies SI/HI PHYSICAL ASSESSMENT: VITAL SIGNS Pulse: 66 (05/30/2023 09:19) Blood Pressure: 144/79 (05/30/2023 09:19) Respiratory Rate: 16 (05/30/2023 09:19) Temperature: 97.4 F [36.3 C] (05/30/2023 09:19) Weight: 175 lb [79.38 kg] (05/30/2023 09:19) Height: 67 in [170.2 cm] (05/30/2023 09:19) Pain: 0 (05/30/2023 09:19) GENERAL: Appears in no acute distress. NECK: appearance is normal and without gross masses CARDIAC: Regular rate and rhythm per ROLAND Waldron RESPIRATORY: CTA bilaterally no rhonchi wheezing or rails per ROLAND Waldron. Nonlabored respirations GI: Abdomen normal bowel sounds per ROLAND Waldron MUSCULOSKELETAL: moving extremiteis without difficulty, ambulates without a device SKIN: Appropriate color for ethnicity. NEUROLOGICAL: The [place] is alert and oriented without distress. Gait is at baseline, no device used PSYCHOLOGICAL: depressed mood and affect. No suicidal or homicidal ideation. A/P: ASSESSMENT and PLAN - is present today 1) DM - Diabetes mellitus (SNOMED CT 35622831) 2) Hearing Loss, Sensorineural, Combined Types 3) Tinnitus, NOS 4) Leg Pain 5) Hyperlipidemia (SNOMED CT 00791711) 6) Chronic obstructive airway disease (SNOMED CT 61207730) 7) Pain in Joint, site unspecified (ICD-9-CM 719.40) 8) Gout (SNOMED CT 30012830) 9) Acute prostatitis (SNOMED CT 96372588) 10) Renal mass (SNOMED CT 221182530) 11) Pancreatitis (SNOMED CT 56044695) 12) Biliary calculus (SNOMED CT 558215088) 13) Primary malignant neoplasm of kidney (SNOMED CT 34830413) 14) Malignant tumor of urinary bladder (SNOMED CT 273842937) 15) H/O: TIA (SNOMED CT 501252279) 16) Dizziness 17) Essential hypertension (SNOMED CT 72894341) 18) Chronic pancreatitis 19) 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 heart failure 20) History of partial nephrectomy 21) History of appendectomy 22) History of cholecystectomy 23) Multiple acquired kidney cysts 24) Dependence on renal dialysis 25) Peripheral vascular disease 26) Elderly fall 27) CAD - Coronary Artery Disease (SCT 99271356) 28) H/O: Stroke (SCT 485911607) 29) ldct sc rng 30) elevated ferritin 31) Cardiac defibrillator in situ 32) Hemorrhagic cystitis 33) Aortic aneurysm screening normal 34) Urinary tract infectious disease 35) disabilty plates 36) Anemia 37) Exposure to potentially hazardous substance depression acute on chronic taking buproprion 150 daily, celbrex stopped by other Docotr vinayak is getting depressed about his medial condition and so many medications , reveiwed meds, renewed adjusted as indicated discussed depression nad ways to enhance his life now watchman device to see cardiology in [place] loves to travel - so go travel incresed buproprion to 300 daily, fu in 2 months, offered mental health consutl susan and bahmanselors, declined only wants to see me, and adia lobato if crisi evolves to call crisis line immediately or go to the ED stat, both agree bloodp ressure elevated keep bp log and heart rat log, and bring in in 2 months at visit to review, we may b=need to decreasemidodrine, will continue to monitor Stable. Discussed medications with patient; med rec completed. Continue current regimen as prescribed by PCP and specialists. RTC as needed if developing any new or worsening symptoms. Please notify PACT with medication changes or for orders coordination as needed if seen by a specialist in the future. Discussed with patient that in the event of community imaging / testing being ordered in the future, once the imaging / testing has been completed, please notify PACT of completion at outside facility if not called with results within 1 week by a [facility]CT member; this is due to intermittent lapses in notification of imaging completion within [facility]. -Follow-up with me every may for annual labs and annual exam -Follow-up with me as needed. All questions answered; agrees to plan of care. Follow up as listed above, annually, and as needed. Keep all appointments. Medications Reconciled. /sepideh/ DRE ALEX MD Signed: 12/26/2023 14:43 12/26/2023 ADDENDUM STATUS: COMPLETED HTN Assess for Elevated BP>=140/90: The patient's blood pressure is usually adequately controlled. No medication changes are indicated at this time. Comment: and is evne on low side on midodrine Follow-Up Pos PTSD/Depression: I have reviewed the results of the Mental Health screens and have evaluated the patient. Based on the evaluation, the following disposition plan will be implemented: Patient declines further intervention or evaluation at this time. Contact information and instructions for accessing emergency services provided. Comment: wants me to treat him * Diabetes Lipid Profile: * Lipid profile ordered for patient. /sepideh/ DRE ALEX MD Signed: 12/26/2023 15:15 DRE ALEX [facility]
--- OUTSIDE RECORDS SUMMARY | 2024-09-07 10:52 | XMS_ITS | Encounter Summary ---
Author Name [facility] Address [address] [place] [address] Care Team Providers Care [employer] Clerk Name Role Phone DRE ALEX Primary Care [...] PART A Mar 04, 2012 PART A [id number] ALONSO DELGADO PATIENT MEDICARE (WNR) MEDICARE (M) PART B Mar 04, 2012 PART B [id number] ALONSO DELGADO PATIENT MEDICARE (WNR) MEDICARE (M) PART A Mar 04, 2012 PART A [id number] [phone] ALONSO DELGADO PATIENT MEDICARE (WNR) MEDICARE (M) PART B Mar 04, 2012 PART B [id number] [phone] ALONSO DELGADO PATIENT MEDICARE (WNR) MEDICARE (M) PART B Mar 04, 2012 PART B [id number] ALONSO DELGADO PATIENT MEDICARE (WNR) MEDICARE (M) PART A Mar 04, 2012 PART A [id number] ALONSO DELGADO PATIENT -FO R-LIFE [facility] RE FOR LIFE WNR Aug 31, 2016 FOR LIFE [id number] [phone] ALONSO DELGADO PATIENT -FO R-LIFE [place] RE FOR LIFE WNR Aug 31, 2016 FOR LIFE [id number] ALONSO DELGADO PATIENT Selected Encounter This section includes the information on record at OR for the Encounter. 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 Plan of Treatment: Future Appointments (+ 6 months) and Future Tests (+/- 45 days) The Plan of Treatment section includes future care activities for the patient from all OR treatmentfacilities. This section includes future appointments and future orders which are active, pending or scheduled. Future Appointments This section includes appointments that were scheduled to occur 6 months from the date of the Encounter, up to a maximum of 20 appointments. The data comes from all OR treatment facilities. Appointment Date/Time Appointment Type Appointme [...] 12, 2024 03:30 PM AMBULATORY - MEDICINE [facility] Mar 12, 2024 03:31 PM AMBULATORY - MEDICINE [facility] Mar 14, 2024 08:30 AM AMBULATORY - MEDICINE [place] [facility] Apr 09, 2024 12:00 PM AMBULATORY - MEDICINE [place] [facility] Apr 18, 2024 01:40 PM AMBULATORY - MEDICINE [place] [facility] May 02, 2024 09:41 AM AMBULATORY - MEDICINE [place] [facility] May 02, 2024 01:00 PM AMBULATORY - NONE [place] [facility] May 10, 2024 01:30 PM AMBULATORY - [place]ICINE [place] [facility] May 23, 2024 09:00 AM AMBULATORY - MEDICINE [facility] May 30, 2024 09:00 AM AMBULATORY - MEDICINE [facility] Jun 11, 2024 11:30 AM AMBULATORY - NONE [place] [facility] Social History: Smoking Status (Most current) and Tobacco Use (All prior to encounter date) This section includes the most current, and the historical, smoking and tobacco- related health factors from the OR facility where the Encounter took place. Current Smoking Status This section includes the most current smoking, or tobacco-related health factor, from the OR facility where the Encounter took place. Date/Time Current Smoking Status Comment Bobbi dobson Apr 26, 2023 02:30 PM VA-TOBACCO QUIT 1 TO < 5 YRS [facility] Tobacco Use History This section includes a history of the smoking, or tobacco-related health factors, that were collected on or before the date of the Encounter. The data comes from the OR facility where the Encounter took place. Date/Time Smoking Status/Tobac co Use Comment Facility Apr 26, 2023 02:30 PM VA-TOBACCO QUIT 1 TO < 5 YRS [facility] May 26, 2022 09:00 AM VA-TOBACCO FORMER USER [facility] May 26, 2022 09:00 AM VA-TOBACCO QUIT 1 TO < 5 YRS [facility] May 06, 2021 10:30 AM VA-TOBACCO USE 30 YEARS OR MORE [facility] May 06, 2021 10:30 AM VA-TOBACCO USE ADVICE [facility] May 06, 2021 10:30 AM VA-TOBACCO USE DIRECT MARKETING MANAGER NO [facility] May 06, 2021 10:30 AM VA-TOBACCO USE MED NO [facility] May 06, 2021 10:30 AM VA-TOBACCO USE WI 30 MIN OF WAKEUP [facility] [place] [facility] May 06, 2021 10:30 AM VA-TOBACCO USER EVERY DAY [facility] Oct 22, 2019 10:03 AM VA-TOBACCO USE 30 YEARS OR MORE [facility] Oct 22, 2019 10:03 AM VA-TOBACCO USE ADVICE [facility] Oct 22, 2019 10:03 AM VA-TOBACCO USE DIRECT MARKETING MANAGER NO [facility] Oct 22, 2019 10:03 AM VA-TOBACCO USE MED NO [facility] Oct 22, 2019 10:03 AM VA-TOBACCO USE WI 30 MIN OF WAKEUP [facility] Oct 22, 2019 10:03 AM VA-TOBACCO USER EVERY DAY [facility] Apr 18, 2019 10:01 AM CURRENT NON-TOBACC O USER-HX OF USE [place] [facility] Apr 18, 2019 10:01 AM CURRENT TOBACCO USER [facility] Apr 18, 2019 10:01 AM VA-TOBACCO USE 30 YEARS OR MORE [facility] Apr 18, 2019 10:01 AM VA-TOBACCO USE ADVICE [facility] Apr 18, 2019 10:01 AM VA-TOBACCO USE DIRECT MARKETING MANAGER NO [facility] Apr 18, 2019 10:01 AM VA-TOBACCO USE MED NO [facility] Apr 18, 2019 10:01 AM VA-TOBACCO USE WI 30 MIN OF WAKEUP [facility] Apr 18, 2019 10:01 AM VA-TOBACCO USER EVERY DAY [facility] Mar 18, 2019 10:21 AM CURRENT TOBACCO USER [facility] Sep 18, 2018 09:56 AM CURRENT NON-TOBACC O USER-HX OF USE [place] [facility] Jun 19, 2018 10:55 AM CURRENT TOBACCO USER [facility] Jun 19, 2018 10:55 AM CURRENT TOBACCO US ER (NOT READY TO QUIT) [facility] Jun 19, 2018 10:55 AM TOBACCO CESSATION REFERRAL DECLINED [facility] Jun 19, 2018 10:55 AM TOBACCO MEDS OFFER ED BUT DECLINED [facility] Jun 19, 2018 10:55 AM TOBACCO USER OFFERED MEDS [facility] Mar 13, 2018 11:20 AM CURRENT TOBACCO USER [facility] Mar 13, 2018 11:20 AM CURRENT TOBACCO US ER (NOT READY TO QUIT) [place] [facility] Mar 13, 2018 11:20 AM TOBACCO CESSATION REFERRAL DECLINED [place] [facility] Mar 13, 2018 11:20 AM TOBACCO MEDS OFFER ED BUT DECLINED [place] [facility] Mar 13, 2018 11:20 AM TOBACCO USER OFFERED MEDS [place] [facility] Oct 04, 2017 02:34 PM [...] AM TOBACCO OFFERED ST OP SMOKING CLINIC [facility] Aug 21, 2013 08:15 AM CURRENT TOBACCO USER [place] [facility] Aug 21, 2013 08:[address] OP SMOKING [facility]INIC [facility] January 23, 2012 02:12 PM CURRENT TOBACCO USER [place] [facility] January 23, 2012 02:12 PM TOBACCO MEDS OFFER ED BUT DECLINED [place] [facility] January 23, 2012 02:12 PM TOBACCO OFFERED PT MEDS (PROVIDER) [place] [facility] January 23, 2012 02:[address] [facility]MOKING [facility]INIC [facility] Jul 27, 2011 08:46 AM TOBACCO MEDS OFFER ED BUT DECLINED [place] [facility] Jul 27, 2011 08:46 AM TOBACCO OFFERED PT MEDS (PROVIDER) [place] [facility] Jul 27, 2011 08:[address] [facility]MOKING [facility]INIC [facility] May 20, 2011 11:24 AM TOBACCO MEDS OFFER ED BUT DECLINED [place] [facility] May 20, 2011 11:24 AM TOBACCO OFFERED PT MEDS (PROVIDER) [place] [facility] May 20, 2011 11:[address] [facility] SMOKING [facility]INIC [facility] January 17, 2011 08:35 AM CURRENT TOBACCO USER [place] [facility] January 17, 2011 08:[address] [facility]MOKING CLINIC [facility] Jul 12, 2010 01:47 PM TOB INFO ON NON-VA STOP SMOKING CLINIC will start smoking cessation classes 2010 [facility] Jul 12, 2010 01:47 PM TOBACCO MEDS OFFER ED BUT DECLINED [facility] Jul 12, 2010 01:47 PM TOBACCO OFFERED PT MEDS (PROVIDER) declined [facility] Jul 12, 2010 01:[address] OP SMOKING CLINIC will start smoking cessation classes, Sep 08, 2010 [facility] Dec 09, 2009 02:09 PM CURRENT TOBACCO USER [facility] Dec 09, 2009 02:09 PM TOBACCO OFFERED PT MEDS (PROVIDER) [facility] Dec 09, 2009 02:[address] OP SMOKING CLINIC [facility] Dec 09, 2009 02:09 PM TOBACCO OFFERRED P T MEDS (PROVIDER) [facility] Advance Directives: All historical and current Section Date Range: From patient's date of to the date document was created. This section includes ALL of a patient's completed or amended OR Advance and Rescinded Directives. The entries below indicate that a directive exists for the patient, but an actual copy is not included with this document. The data comes from all OR facilities. Date Advance Directives Provider Source May 07, 2014 ADVANCE DIRECTIVE JUAN GILLETTE [facility] Encounter Notes: All associated encounter notes This section contains the clinical notes associated to the Encounter. Date/Time Encounter Note(s) Provider Source January 31, 2024 09:28 AM PHYSICIAN LETTERS: LOCAL TITLE: TEST RESULT GENERAL LETTER [facility] STANDARD TITLE: PHYSICIAN LETTERS DATE OF NOTE: JANUARY 31, 2024@09:28 ENTRY DATE: JANUARY 31, 2024@09:28:32 AUTHOR: DRE ALEX EXP COSIGNER: URGENCY: STATUS: COMPLETED [facility] [address] [place] [address] JANUARY 31, 2024 ALONSO DELGADO [address] [place], [place] [address] Dear Alonso Delgado, I would like to update you on your recent test results. OTHER TEST RESULTS RADIOLOGY (NON-INVASIVE TEST RESULTS): PLAN Please continue your treatment as we discussed during your visit. If you have any questions please call your case assembler. I look forward to seeing you at your next clinic appointment. Thank you for choosing the [facility] for your healthcare. I have reviewed your test results and we need to get additional testing done as follows: repeat lcdt in 3 months = due 04/2024 Follow-up low-dose CT scan in 3 months to reevaluate the pulmonary nodules. I have reviewed your test results and we need you to meet with a legal document specialist specialist. Pulmonology consult for further evaluation of the findings in the left lower lobe. FUTURE APPOINTMENTS: 02/27/2024 08:30 PB-JT CVT PACT DELTA(PRO 02/27/2024 08:31 PB-JT CVT PACT DELTA(PAT 02/29/2024 12:00 PB-SLEEP MED CPAP 05/23/2024 09:00 PB-[facility] ( 05/30/2024 09:00 PB-TJ PACT DELTA PCP Team: Please call the patient and discuss above with him. And can see if he wants to stay in the community or continue with the VA system for pulmonary consult Sincerely, DRE HESTERALONSO FIGUEROA DRE MCKEON [facility] Dec 26, 2023 01:36 PM PRIMARY CARE MANUELITO WILLARD NOTE: LOCAL TITLE: PRIMARY CARE NURSING PROGRESS NOTE (TEXT) NURSING P STANDARD TITLE: PRIMARY CARE NURSING NOTE DATE OF NOTE: DEC 26, 2023@13:36 ENTRY DATE: DEC 26, 2023@13:37:17 AUTHOR: TIFFANY LUKE COSIGNER: URGENCY: STATUS: COMPLETED PRIMARY CARE NURSING PROGRESS NOTE (TEXT) NURSING PB Has ADDENDA Established Patient ALONSO DELGADO IS A 73 YEAR OLD MALE BEING SEEN IN CLINIC DEC 26, 2023. = = REASON FOR VISIT: physician in [place] stopped celexa and requesting medication for anger/depression, Are you receiving care any where other than the VA? Yes, List: cardiology- Dr. LETICIA Rutherford for possible [facility] Nephrology - [facility] AND SURGICAL HISTORY: Pacer/defib 04/26 Does patient report using home oxygen? No CURRENT ACTIVE MEDICATIONS FOR REVIEW: Allergies/ADRs (Tool #5) FACILITY ALLERGY/ADR -------- No Remote Allergy/ADR Data available for this patient [facility] No Known Allergies Med. Reconciliation (Tool #1) INCLUDED IN THIS LIST: Alphabetical list of active outpatient prescriptions dispensed from this VA (local) and dispensed from another OR or [facility]D facility (remote) as well as inpatient orders (local pending and active), local clinic medications, locally documented non-VA medications, and local prescriptions that have or been discontinued in the past 90 days. Non-VA Meds Last Documented On: May 21, 2020 NOTE The display of VA prescriptions dispensed from another OR or [facility] facility (remote) is limited to active outpatient prescription entries matched to National Drug File at the originating site and may not include some items such as investigational drugs, compounds, etc. NOT INCLUDED IN THIS LIST: Medications self-entered by the patient into personal health records (i.e. [employer]) are NOT included in this list. Non-VA medications documented outside this OR, remote inpatient orders (regardless of status) and remote clinic medications are NOT included in this list. The patient and provider must always discuss medications the patient is taking, regardless of where the medication was dispensed or obtained. OUTPT ACETAMINOPHEN 325MG TAB (Status = Active) TAKE TWO TABLETS BY MOUTH FOUR TIMES A DAY NEEDED FOR PAIN CAUTION: DO NOT EXCEED 4000MG PER DAY ACETAMINOPHEN (APAP) FROM ALL MEDS. Rx# [id number] Last Released: 05/02/23 Qty/Days Supply: 200/25 Rx Expiration Date: 04/30/24 Refills Remainin Indication: FOR PAIN OUTPT ALBUTEROL 90MCG (CFC-F) 200D ORAL INHL (Status = Active) INHALE 2 PUFFS ORAL INHALATION FOUR TIMES A DAY NEEDED FOR COPD SHAKE WELL. RINSE MOUTHPIECE FREQUENTLY TO PREVENT CLOGGING. Rx# [id number] Last Released: 05/02/23 Qty/Days Supply: 3 Rx Expiration Date: 04/30/24 Refills Remainin Indication: FOR COPD OUTPT ALLOPURINOL 100MG TAB (Status = ) TAKE TWO TABLETS BY MOUTH ONCE A DAY FOR GOUT. TAKE WITH PLENTY OF WATER. Rx# [id number] Last Released: 08/29/23 Qty/Days Supply: 180/90 Rx Expiration Date: 10/22/23 Refills Remainin OUTPT ASCORBIC ACID 500MG TAB (Status = ) TAKE TWO TABLETS BY MOUTH ONCE A DAY FOR VITAMIN SUPPLEMENTATION. Rx# [id number] Last Released: 11/17/23 Qty/Days Supply: 200/90 Rx Expiration Date: 12/02/23 Refills Remainin OUTPT ASPIRIN 81MG EC TAB (Status = ) TAKE ONE TABLET BY MOUTH ONCE A DAY FOR HEART OR CIRCULATION. TAKE WITH FOOD. Rx# [id number] Last Released: 10/25/23 Qty/Days Supply: 120/90 Rx Expiration Date: 11/05/23 Refills Remainin OUTPT BUPROPION HCL 150MG 24HR SA TAB (Status = ) TAKE ONE TABLET BY MOUTH ONCE A DAY SWALLOW WHOLE - DO NOT CRUSH OR CHEW. Rx# [id number] Last Released: 10/25/23 Qty/Days Supply: 90/90 Rx Expiration Date: 12/02/23 Refills Remainin OUTPT CARVEDILOL 25MG TAB (Status = Active) TAKE ONE-HALF TABLET BY MOUTH TWICE A DAY FOR HIGH BLOOD PRESSURE TAKE WITH FOOD. Rx# [id number] Last Released: 11/17/23 Qty/Days Supply: 90/90 Rx Expiration Date: 04/24/24 Refills Remainin Indication: FOR HIGH BLOOD PRESSURE OUTPT CHOLECALCIF 50MCG (D3-2,000UNIT) TAB (Status = Active) TAKE ONE TABLET BY MOUTH ONCE A DAY FOR VITAMIN D SUPPLEMENTATION Rx# [id number] Last Released: 10/25/23 Qty/Days Supply: 100/90 Rx Expiration Date: 04/30/24 Refills Remainin Indication: FOR VITAMIN D SUPPLEMENTATION OUTPT CITALOPRAM HYDROBROMIDE 40MG TAB (Status = ) TAKE ONE-HALF TABLET BY MOUTH EVERY MORNING FOR DEPRESSION Rx# [id number] Last Released: 06/07/23 Qty/Days Supply: 45/90 Rx Expiration Date: 12/02/23 Refills Remainin OUTPT CLOPIDOGREL BISULFATE 75MG TAB (Status = Active) TAKE ONE TABLET BY MOUTH ONCE A DAY Rx# [id number] Last Released: 07/12/23 Qty/Days Supply: 90/90 Rx Expiration Date: 04/30/24 Refills Remainin Indication: PAD OUTPT COLCHICINE 0.6MG TAB (Status = Active) TAKE ONE-HALF TABLET BY MOUTH TWO TIMES PER WEEK FOR GOUT (STOP MED AND CONTACT PROVIDER AT FIRST SIGN OF NAUSEA, VOMITING OR DIARRHEA) Rx# [id number] Last Released: 10/25/23 Qty/Days Supply: Rx Expiration Date: 05/05/24 Refills Remainin OUTPT CREON 12,000UNIT EC CAP (Status = ) TAKE 3 CAPSULES BY MOUTH THREE TIMES A DAY BEFORE MEALS FOR PANCREATIC ENZYME REPLACEMENT. TAKE WITH FOOD DIRECTED. Rx# [id number] Last Released: 09/22/23 Qty/Days Supply: 0 Rx Expiration Date: 10/22/23 Refills Remainin OUTPT FERROUS SULFATE 325MG TAB (Status = Active) TAKE ONE TABLET BY MOUTH TWICE A DAY FOR IRON DEFICIENCY ANEMIA Rx# [id number] Last Released: 11/17/23 Qty/Days Supply: 200 Rx Expiration Date: 05/30/24 Refills Remainin Indication: FOR IRON DEFICIENCY ANEMIA OUTPT FISH OIL 1000MG (500MG DHA/EPA) CAP (Status = ) TAKE ONE CAPSULE BY MOUTH TWICE A DAY TO LOWER TRIGLYCERIDES Rx# [id number] Last Released: 03/20/23 Qty/Days Supply: 90 Rx Expiration Date: 10/22/23 Refills Remainin OUTPT INSULIN,ASPART(EQV-NOVLG)100 UN/ML FLXPEN (Status = ) INJECT 12 UNITS UNDER THE SKIN THREE TIMES A DAY BEFORE MEALS FOR BLOOD SUGAR CONTROL. ADMINISTER 10 MINUTES BEFORE FOOD DIRECTED. REFRIGERATE UN-OPENED PENS. DISCARD CARTRIDGE 28 DAYS AFTER OPENING. Rx# [id number] Last Released: 10/18/23 Qty/Days Supply: Rx Expiration Date: 12/02/23 Refills Remainin OUTPT INSULIN,GLARGINE-YFGN 100UNIT/ML PEN 3ML (Status = ) INJECT 20 UNITS UNDER THE SKIN ONCE A DAY FOR BLOOD SUGAR CONTROL. ADMINISTER AT SAME TIME EACH DAY DIRECTED. DISCARD ANY OPEN CARTRIDGE AFTER 28 DAYS. Rx# [id number] Last Released: 10/19/23 Qty/Days Supply: Rx Expiration Date: 12/02/23 Refills Remainin OUTPT LIDOCAINE 2.5/PRILOCAINE 2.5% CREAM (Status = Active) APPLY LIGHTLY TO AFFECTED AREA(S) DIRECTED NEEDED BEFORE NEEDLE STICK Rx# [id number] Last Released: 11/24/23 Qty/Days Supply: Rx Expiration Date: 08/25/24 Refills Remainin Indication: BEFORE NEEDLE STICK OUTPT MIDODRINE HCL 5MG TAB (Status = ) TAKE ONE TABLET BY MOUTH THREE TIMES A DAY FOR LOW BLOOD PRESSURE/DIZZINESS. Rx# [id number] Last Released: 11/17/23 Qty/Days Supply: 270/90 Rx Expiration Date: 11/17/23 Refills Remainin Indication: FOR LOW BLOOD PRESSURE OUTPT OMEPRAZOLE 20MG EC CAP (Status = Active) TAKE ONE CAPSULE BY MOUTH EVERY MORNING BEFORE A MEAL TO LOWER STOMACH ACID. TAKE 30 MINUTES PRIOR TO FOOD. Rx# [id number] Last Released: 11/24/23 Qty/Days Supply: 90/90 Rx Expiration Date: 08/04/24 Refills Remainin OUTPT OXYBUTYNIN CHLORIDE 5MG TAB (Status = ) TAKE ONE TABLET BY MOUTH THREE TIMES A DAY NEEDED FOR BLADDER Rx# [id number] Last Released: 12/06/22 Qty/Days Supply: 270/90 Rx Expiration Date: 12/02/23 Refills Remainin OUTPT RENAL MULTIVIT W/1MG OR LESS FA TAB (Status = ) TAKE 1 TABLET BY MOUTH ONCE A DAY Rx# [id number] Last Released: 09/22/23 Qty/Days Supply: 100/90 Rx Expiration Date: 10/22/23 Refills Remainin OUTPT SEVELAMER CARBONATE 800MG TAB (Status = Active) TAKE THREE TABLETS BY MOUTH THREE TIMES A DAY WITH MEAL(S) FOR HYPERPHOSPHATEMIA. TAKE WITH FOOD. Rx# [id number] Last Released: 11/16/23 Qty/Days Supply: 810/90 Rx Expiration Date: 04/30/24 Refills Remainin OUTPT SIMVASTATIN 80MG TAB (Status = ) TAKE ONE-HALF TABLET BY MOUTH EVERY EVENING TO LOWER CHOLESTEROL Rx# [id number] Last Released: 09/22/23 Qty/Days Supply: 45/90 Rx Expiration Date: 10/22/23 Refills Remainin OUTPT SODIUM BICARBONATE 650MG TAB (Status = Discontinued) TAKE ONE TABLET BY MOUTH THREE TIMES A DAY Rx# [id number] Last Released: 09/20/23 Qty/Days Supply: 270/90 Rx Expiration Date: 10/22/23 Refills Remainin OUTPT SODIUM BICARBONATE 650MG TAB (Status = Active) TAKE ONE TABLET BY MOUTH FOUR TIMES A DAY FOR DIALYSIS Rx# [id number] Last Released: 10/24/23 Qty/Days Supply: 360/90 Rx Expiration Date: 10/20/24 Refills Remainin Indication: FOR DIALYSIS OUTPT TAMSULOSIN HCL 0.4MG CAP (Status = Active) TAKE TWO CAPSULES BY MOUTH EVERY EVENING FOR BENIGN PROSTATIC HYPERPLASIA APPROXIMATELY 30 MINUTES AFTER THE SAME MEAL EACH DAY (FOR PROSTATE) Rx# [id number] Last Released: 11/17/23 Qty/Days Supply: 60/30 Rx Expiration Date: 04/13/24 Refills Remainin Indication: FOR BENIGN PROSTATIC HYPERPLASIA OUTPT TOLTERODINE TARTRATE 2MG SA CAP (Status = ) TAKE ONE CAPSULE BY MOUTH ONCE A DAY FOR OVERACTIVE BLADDER Rx# [id number] Last Released: 02/17/23 Qty/Days Supply: 90 Rx Expiration Date: 11/08/23 Refills Remainin Indication: FOR OVERACTIVE BLADDER SUPPLIES OUTPT ACCU-CHEK GUIDE (GLUCOSE) TEST STRIP (Status = Active) USE 1 STRIP FOR BLOOD TEST FOUR TIMES A DAY FOR BLOOD SUGAR MONITORING Rx# [id number] Last Released: 09/22/23 Qty/Days Supply: 400/90 Rx Expiration Date: 03/20/24 Refills Remainin Indication: FOR BLOOD SUGAR MONITORING OUTPT NEEDLE,PEN 31G,8MM (Status = Active) USE 1 NEEDLE UNDER THE SKIN FOUR TIMES A DAY FOR INJECTION Rx# [id number] Last Released: 07/21/23 Qty/Days Supply: 400/90 Rx Expiration Date: 07/20/24 Refills Remainin Indication: FOR INJECTION PHARMACY TERMS AND POSSIBLE PATIENT ACTIONS INPT = OR inpatient order IV = OR intravenous medication OUTPT = OR outpatient prescription PHARMACY POSSIBLE PATIENT TERMS EXPLANATION ACTIONS -------- ---- ACTIVE A prescription that can be If you have refills, filled at the local [place] pharmacy. you may request a refill of this prescription from your VA pharmacy. CLINIC A medication you received during If you have questions a visit to a OR clinic or about this medication emergency department. contact your VA healthcare team. DISCONTINUED A prescription your provider has Contact your VA stopped. It is no longer healthcare team if you available to be sent to you or need more of this picked up at the OR pharmacy medication. window. A prescription which is too old Contact your VA to fill. This does not refer to healthcare team if you the expiration date of the need more of this medication in the container. medication. NON-VA A medication that came from If this medication someplace other than a VA information is pharmacy. This may be a incorrect or out of prescription from either the VA date, please tell your or non VA providers that was VA healthcare team. filled outside the VA. Or, it may be an suqn-xkn-lyskwmp (OTC), herbal, dietary supplements or sample medication. ON HOLD An active prescription that will Contact your VA not be filled until pharmacy pharmacy when you need resolves the issue. more of this medication. PARKED An active prescription that will Contact your VA not be filled until the patient pharmacy when you need requests it. this medication. PENDING This prescription order has been If you have been sent to the pharmacy for review instructed to start and is not ready yet. this medication now, contact your VA pharmacy. SUSPENDED An active prescription that is Contact your VA not scheduled to be filled yet. pharmacy if you need You should receive it before this medication now. you run out. Patient reports taking meds other than as directed/ordered: no longer taking clopidogrel 75mg , citalopram 40mg stopped, Fish oil stopped, oxybutynin 5mg stopped, . IS PATIENT TAKING ANY OVER THE COUNTER MEDICATIONS, SUCH VITAMINS OR HERBAL SUPPLEMENTS, INCLUDING ANY MEDICATIONS PRESCRIBED BY ANOTHER PHYSICIAN? No ALLERGIES/ADVERSE REACTIONS: Patient has answered NKA Does patient have any new allergies to report since last visit? NO VITALS: TEMPERATURE: 97.4 F [36.3 C] (05/30/2023 09:19) BP: 144/79 (05/30/2023 09:19) RESP: 16 (05/30/2023 09:) PULSE: 66 (05/30/2023 09:19) HT: 67 in [170.2 cm] (05/30/2023 09:19) WT: 175 lb [79.38 kg] (05/30/2023 09:) BMI: 27.5 PAIN ASSESSMENT: (Most Recent Pain Score in Vitals Package: 0 (05/30/2023 09:19) ) The patient indicated that they and their close contacts have not traveled outside of the [place] in the past 21 days. The patient reports the following symptoms: No symptoms present The patient is not immunocompromised. The patient does not report having a history of Multi Drug Resistant Organism (MDRO) within the last five years. The patient does not report having been exposed to measles, chickenpox, or zoster in last 30 days. Patient reports no pain at this visit. Pain Score = 0. STRESS: Thank you for your service. Now let us serve you. At the [facility], we strive to provide you with exceptional health care that improves your health and well-being. Are you feeling sad, empty, or depressed? Yes Do you need to talk about things in your life that worry you or cause you stress? No Do you need to talk about personal problems, family problems, alcohol use, drug use, or mental or emotional illness? No SUICIDE SCREENING: The patient was asked, Over the past two weeks, how often have you been bothered by thoughts that you would be better off or of hurting yourself in some way? Not At All SPIRITUAL ASSESSMENT: Are there oriental orthodox practices or spiritual concerns you want the launch check out, your physician, and other health care team members to immediately know about? No Patient advised to call the clinic for any concerns, questions, or symptoms. Patient and/or caregiver verbalized understanding of plan of care. Sexual Orientation: The patient thinks of their sexual orientation as: Straight or Heterosexual COVID-19 Immunization: Refused Moderna Monovalent COVID-19 vaccine Immunization: COVID-19 (MODERNA), MRNA, LNP-S, PF, 50 MCG/0.5 ML (AGES 12+ YEARS) Refusal Reason: PATIENT DECISION Patient refuses all immunization(s) in the COVID-19 group Date Documented: 12/26/23 13:51 /sepideh/ TIFFANY WELLS RN [facility] Signed: 12/26/2023 13:52 12/26/2023 ADDENDUM STATUS: COMPLETED Depression Screening: Perform PHQ-2 A PHQ-2 screen was performed. The score was 4 which is a positive screen for depression. Over the past two weeks, how often have you been bothered by the following problems? 1. Little interest or pleasure in doing things Nearly every day 2. Feeling down, depressed, or hopeless Several days Licensed Independent Provider notified of positive screen and need for follow-up. Name of provider notified: Dr. Alex Homelessness/Food Insecurity Screen: In the past 2 months, have you been living in stable housing that you own, rent, or stay in as part of a household? Yes - Living in stable housing. Are you worried or concerned that in the next 2 months you may NOT have stable housing that you own, rent, or stay in as part of a household? No - Not worried about housing near future The reports the following: Within the past 12 months, you worried whether your food would run out before you got money to buy more. Never true Within the past 12 months, the food you bought just didn't last and you didn't have money to get more. Never true Advanced Directive Screen/Spring Former: ADVANCE DIRECTIVE SCREENING: I asked if the patient has an advance directive, and determined that: Patient does not have an Advance Directive. Patient was given form to update and return when completed. ADVANCE DIRECTIVE NOTIFICATION I provided the patient with written notification about advance directives. Level of understanding: Good Dementia Safety Assessment: The source of information for the following was: Source(s): Patient Is there a gun in your home (place where you live)? YES Comment: . AMMUNITION for gun(s) is in the home Gun(s) are HANDGUNS Gun(s) are RIFLES, SHOTGUNS OR OTHER GUNS One or more gun(s) are STORED LOADED Do you drive? YES Have you been involved in any motor vehicle accidents or mishaps (such as near-misses, traffic tickets, getting lost while driving etc) in the past year? NO Do you drive alone? Answer: Yes Patient Education Dialog: What was taught: OR 'Firearms and Dementia' pamphlet Weight Control/Nutrition Counseling: * The patient received the following counseling at this encounter: Patient was encouraged to restrict fat, especially saturated fats, in a normal diet. Benefit of a diet high in fiber was discussed. Patient was advised to include 5 or more servings of fruit and vegetables and six or more servings of grains as a well balanced diet. Patient/Nurse Interview: * * Patient stated that adequate information was received regarding the condition and/or treatment. /sepideh/ Ge Waldron RN BSN [facility] Signed: 12/26/2023 13:59 TIFFANY [facility]
--- OUTSIDE RECORDS SUMMARY | 2024-09-07 10:52 | XMS_ITS ---
Author Name [facility] [place] Address [address] [place] [address] Care Team Providers Care Enterprise Analyst Name Role Phone DRE ALEX Primary [...] PART A Mar 04, 2012 PART A [id number] [phone] LEONARD LEWIS PATIENT MEDICARE (WNR) MEDICARE (M) PART B Mar 04, 2012 PART B [id number] LEONARD LEWIS PATIENT MEDICARE (WNR) MEDICARE (M) PART A Mar 04, 2012 PART A [id number] LEONARD LEWIS PATIENT MEDICARE (WNR) MEDICARE (M) PART B Mar 04, 2012 PART B [id number] [phone] LEONARD LEWIS PATIENT MEDICARE (WNR) MEDICARE (M) PART B Mar 04, 2012 PART B [id number] [phone] LEONARD LEWIS PATIENT MEDICARE (WNR) MEDICARE (M) PART A Mar 04, 2012 PART A [id number] [phone] LEONARD LEWIS PATIENT -FO R-LIFE [facility] RE FOR LIFE WNR Aug 31, 2016 FOR LIFE [id number] [phone] LEONARD LEWIS PATIENT -FO R-LIFE [facility] RE FOR LIFE WNR Aug 31, 2016 FOR LIFE [id number] [phone] LEONARD LEWIS PATIENT Selected Encounter This section includes the information on record at [place] for the Encounter. Date/Time Encounter Type Encounter Description Reason Pro vider Source January 30, 2024 02:24 PM Outpatient Encounter ADMIN PAT ACTIVTIES (MASNONCT) IHE Encounter Template Text not used by [place] Plan of Treatment: Future Appointments (+ 6 months) and Future Tests (+/- 45 days) The Plan of Treatment section includes future care activities for the patient from all [place] treatmentfacilities. This section includes future appointments and future orders which are active, pending or scheduled. Future Appointments This section includes appointments that were scheduled to occur 6 months from the date of the Encounter, up to a maximum of 20 appointments. The data comes from all [place] treatment facilities. Appointment Date/Time Appointment Type Appointme nt Facility Name Mar 05, 2024 12:00 PM AM[facility]UL[facility]ORY [place] [facility] Mar 12, 2024 03:30 PM AM[facility]ULATORY - MEDICINE [facility] Mar 12, 2024 03:31 PM AM[facility]ULATORY - MEDICINE [facility] Mar 14, 2024 08:30 AM [facility] [facility] Apr 09, 2024 12:00 PM AM[facility]UL[facility]ORY - [facility] [place] [facility] Apr 18, 2024 01:40 PM [facility] [place] [facility] May 02, 2024 09:41 AM [facility] [facility] May 02, 2024 01:00 PM AM[facility]ULATORY - NONE [place] [facility] May 10, 2024 01:30 PM [facility] [place] [facility] May 23, 2024 09:00 AM AM[facility]ULATORY - MEDICINE [facility] May 30, 2024 09:00 AM AMBULATORY - MEDICINE [facility] Jun 11, 2024 11:30 AM AM[facility]ORY - NONE [place] [facility] Jul 04, 2024 08:30 AM [facility]ORY - [facility]IC[facility] [place] [facility] Lab Results: +/- 30 days of the encounter This section includes the Chemistry and Hematology Lab Results on record with [place] for the patient. Radiology Reports and Pathology Reports are provided separately, in subsequent sections. Lab Results This section contains the Chemistry/Hematology Results that were resulted 30 days before or 30 daysafter the date of the Encounter. Date/Time Source Result Type Result - Unit Interpretation Reference Range Comment Feb 22, 2024 08:14 AM [facility] CB HGA1C Specimen Type: BLOOD No comment entered. Ordering Provider: DRE ALEX Report Released Date/Time: Feb 22, 2024 08:13 AM Reporting Lab: [place] [facility] [address] [place] [address] Performing Lab: [place] [facility] [address] [place] [address] HGA1C 5.8 4.0-6.0 Feb 22, 2024 08:14 AM [facility] CHOLESTEROL PANEL (PB) Specimen Type: PLASMA No comment entered. Ordering Provider: DRE ALEX Report Released Date/Time: Feb 22, 2024 08:13 AM Reporting Lab: [place] [facility] [address] [place] [address] Performing Lab: [place] [facility] [address] [place] [address] CHOLESTEROL 86 mg/dL 0-200 TRIGLYCERIDE 71 mg/dL 0-150 CALCULATED LDL 30.8 mg/dL HDL(New) 41.0 mg/dL H >40 HDL % OF TOTAL CHOLESTEROL (PB) 47.7 >25 Feb 22, 2024 08:14 AM [facility] CB COMPREHENSIVE METABOLIC PANEL Specimen Type: PLASMA No comment entered. Ordering Provider: DRE ALEX Report Released Date/Time: Feb 22, 2024 08:13 AM Reporting Lab: [place] [facility] [address] [place] [address] Performing Lab: [place] [facility] [address] [place] [address] CREATININE 5.13 mg/dL H 0.7-1.3 UREA NITROGEN [...] ALL of a patient's completed or amended [place] Advance and Rescinded Directives. The entries below indicate that a directive exists for the patient, but an actual copy is not included with this document. The data comes from all [place] facilities. Date Advance Directives Provider Source May 07, 2014 ADVANCE DIRECTIVE JUAN GILLETTE [facility] Radiology Reports: +/- 30 days of the [...] the Encounter. The data comes from all [place] treatment facilities. Date/Time Radiology Report Provider Source January 30, 2024 10:52 AM LDCT LCS 1, 3 OR 6 MONTH FOLLOW UP: LEONARD LEWIS [id number] -1950 M Ex Date: JANUARY 30, 2024@10:52 Req Phys: DRE ALEX Loc: PB-ADMIN LUNG SCREENING (Req'g Img Loc: PB-CT IMAGING Service: Unknown [facility] [place] [address] (Case [id number] COMPLETE) LDCT LCS 1, 3 OR 6 MONTH FOLLOW U(CT Detailed) CPT:85550 Reason for Study: LCS 3 month f/u LRADS 0 Clinical History: 73 yr old smoking hx 1-2ppd since age 15yrs; quit December 2020. LRADS 0 on 10.31.2023 w/rec 3 mo f/u per rad [place] would like exam on or Report Status: Verified Date Reported: JANUARY 30, 2024 Date Verified: JANUARY 30, 2024 Metal Finisher E-Sig:/ES/RONI MCKEON Report: EXAM: LDCT LCS 1, [...] persists Primary Interpreting Staff: RONI MCKEON, RADIOLOGIST (Metal Finisher) /RONI Hi [facility] Encounter Notes: All associated encounter notes This section contains the clinical notes associated to the Encounter. Date/Time Encounter Note(s) Provider Source January 30, 2024 02:24 PM ADMINISTRATIVE NOT E: LOCAL TITLE: VERBAL PASSCODE PB STANDARD TITLE: ADMINISTRATIVE NOTE DATE OF NOTE: JANUARY 30, 2024@14:24 ENTRY DATE: JANUARY 30, 2024@14:25:04 AUTHOR: BRANDI THOMPSON EXP COSIGNER: URGENCY: STATUS: COMPLETED The [place]'s passcode is August The allows [place] Staff to discuss following (IF CALLER KNOWS PASSCODE): MAKE OR CONFIRM APPOINTMENTS: Yes HAVE ACCESS TO COMMUNICATION & VERBAL INFORMATION REGARDING TREATMENT: Yes Expiration Date: until revoked /es/ BRANDI THOMPSON Signed: 01/30/2024 14:25 BRANDI THOMPSON [facility]
--- OUTSIDE RECORDS SUMMARY | 2024-09-07 10:53 | XMS_ITS | Encounter Summary ---
Author Name [facility] [place] Address [address] [place] [address] Care Team Providers Care Warehouse Worker Name Role Phone DRE ALEX Primary Care [...] PART A Mar 04, 2012 PART A [id number] [phone] LEONARD DELGADO PATIENT MEDICARE (WNR) MEDICARE (M) PART B Mar 04, 2012 PART B [id number] LEONARD DELGADO PATIENT MEDICARE (WNR) MEDICARE (M) PART A Mar 04, 2012 PART A [id number] LEONARD DELGADO PATIENT MEDICARE (WNR) MEDICARE (M) PART A Mar 04, 2012 PART A [id number] LEONARD DELGADO PATIENT MEDICARE (WNR) MEDICARE (M) PART B Mar 04, 2012 PART B [id number] [phone] LEONARD DELGADO PATIENT MEDICARE (WNR) MEDICARE (M) PART B Mar 04, 2012 PART B [id number] [phone] LEONARD DELGADO PATIENT -FO R-LIFE [facility] RE FOR LIFE WNR Aug 31, 2016 FOR LIFE [id number] [phone] LEONARD DELGADO PATIENT -FO R-LIFE [facility] RE FOR LIFE WNR Aug 31, 2016 FOR LIFE [id number] LEONARD DELGADO PATIENT Selected Encounter This section includes the information on record at [place] for the Encounter. Date/Time Encounter Type Encounter Description Reason Provider Source January 30, 2024 04:52 PM Outpatient Encounter PULMONARY/CHEST ICD-10-CM R91.8 Other nonspecific abnormal finding of lung field QIAN PORTILLO [facility] Encounter Template Text not used by [place] Assessments - Encounter Diagnoses This section includes the primary and secondary diagnoses documented for the Encounter. Date/Time Primary/Secondary Diagnosis Diagnosis Name Provider Source January 30, 2024 05:06 PM PRIMARY Other nonspecific abnormal finding of lung field QIAN PORTILLO [facility] January 30, 2024 05:06 PM SECONDARY Tobacco use QIAN PORTILLO [facility] Plan of Treatment: Future Appointments (+ 6 [...] PM AM[facility] [place] [facility] Mar 12, 2024 03:30 PM [facility]UL[facility] MEDICINE [facility] Mar 12, 2024 03:31 PM AM[facility]ULATORY - MEDICINE [facility] Mar 14, 2024 08:30 AM [facility]IC[facility] [place] [facility] Apr 09, 2024 12:00 PM AM[facility] [place] [facility] Apr 18, 2024 01:40 PM [facility] [facility] May 02, 2024 09:41 AM AM[facility] [place] [facility] May 02, 2024 01:00 PM AMBULATORY - NONE [place] [facility] May 10, 2024 01:30 PM AM[facility] [place] [facility] May 23, 2024 09:00 AM AMBULATORY - MEDICINE [facility] May 30, 2024 09:00 AM AMBULATORY - MEDICINE [facility] Jun 11, 2024 11:30 AM AM[facility]ULATORY - NONE [place] [facility] Jul 04, 2024 08:30 AM [facility]UL[facility] - [facility]IC[facility] [place] [facility] Lab Results: +/- 30 days of the [...] Range Comment Feb 22, 2024 08:14 AM [facility] HGA1C Specimen Type: BLOOD No comment entered. Ordering Provider: DRE ALEX Report Released Date/Time: Feb 22, 2024 08:13 AM Reporting Lab: [place] [facility] [address] [place] [address] Performing Lab: [place] [facility] [address] [place] [address] HGA1C 5.8 4.0-6.0 Feb 22, 2024 08:14 AM [facility] CHOLESTEROL PANEL (PB) Specimen Type: PLASMA No comment entered. Ordering Provider: DRE ALEX Report Released Date/Time: Feb 22, 2024 08:13 AM Reporting Lab: [place] [facility] [address] [place] [address] Performing Lab: [place] [facility] [address] [place] [address] CHOLESTEROL 86 mg/dL 0-200 TRIGLYCERIDE 71 mg/dL 0-150 CALCULATED LDL 30.8 mg/dL HDL(New) 41.0 mg/dL H >40 HDL % OF TOTAL CHOLESTEROL (PB) 47.7 >25 Feb 22, 2024 08:14 AM [facility] COMPREHENSIVE METABOLIC PANEL Specimen Type: PLASMA No comment entered. Ordering Provider: DRE ALEX Report Released Date/Time: Feb 22, 2024 08:13 AM Reporting Lab: [place] [facility] [address] [place] [address] Performing Lab: [place] [facility] [address] [facility] [address] CREATININE 5.13 mg/dL H 0.7-1.3 UREA NITROGEN [...] Source May 07, 2014 ADVANCE DIRECTIVE [facility] Radiology Reports: +/- 30 [...] OR 6 MONTH FOLLOW UP: LEONARD DELGADO [id number] -1950 M Exm Date: JANUARY 30, 2024@10:52 Req Phys: DRE ALEX Loc: PB-ADMIN LUNG SCREENING (Req'g Img Loc: PB-CT IMAGING Service: Unknown LU[facility] [place] [address] (Case [id number] COMPLETE) LDCT LCS 1, 3 OR 6 MONTH FOLLOW U(CT Detailed) CPT:33708 Reason for Study: LCS 3 month f/u LRADS 0 Clinical History: 73 yr old smoking hx 1-2ppd since age 15yrs; quit December 2020. LRADS 0 on 10.31.2023 w/rec 3 mo f/u per rad [place] would like exam on or Report Status: Verified Date Reported: JANUARY 30, 2024 Date Verified: JANUARY 30, 2024 Kitchen Worker E-Sig:/ES/RONI MCKEON Report: EXAM: LDCT LCS 1, [...] persists Primary Interpreting Staff: RONI MCKEON, RADIOLOGIST (Kitchen Worker) /RONI Hi [place] [facility] Encounter Notes: All associated encounter notes This section contains the clinical notes associated to the Encounter. Date/Time Encounter Note(s) Provider Source January 30, 2024 04:53 PM PULMONARY CONSULT: LOCAL TITLE: YRIS-ECONSULT LUNG CANCER SCREENING PULMONARY STANDARD TITLE: PULMONARY CONSULT DATE OF NOTE: JANUARY 30, 2024@16:53 ENTRY DATE: JANUARY 30, 2024@16:53:07 AUTHOR: QIAN PORTILLO EXP COSIGNER: URGENCY: STATUS: COMPLETED KCVA LCS E-Consult Note: NOTE: This is [...] Repeat LDCT in 3 months 2. The [facility] [place]acic nurse navigators will coordinate these recommendations VISIT TIME: 16 minutes /sepideh/ Shabbir Portillo M.D. Pulmonary/Critical Care Medicine Signed: 01/30/2024 17:06 QIAN PORTILLO [facility]
--- OUTSIDE RECORDS SUMMARY | 2024-09-07 10:53 | XMS_ITS | Encounter Summary ---
Author Name [facility] [place] [facility] [place] Address [address] [place] [address] Care Team Providers Care Fisher Eel Spear Name Role Phone DRE ALEX Primary Care [...] PART A Mar 04, 2012 PART A [id number] [phone] LEONARD LEWIS PATIENT MEDICARE (WNR) MEDICARE (M) PART B Mar 04, 2012 PART B [id number] LEONARD LEWIS PATIENT MEDICARE (WNR) MEDICARE (M) PART A Mar 04, 2012 PART A [id number] [phone] LEONARD LEWIS PATIENT MEDICARE (WNR) MEDICARE (M) PART A Mar 04, 2012 PART A [id number] LEONARD LEWIS PATIENT MEDICARE (WNR) MEDICARE (M) PART B Mar 04, 2012 PART B [id number] [phone] LEONARD LEWIS PATIENT MEDICARE (WNR) MEDICARE (M) PART B Mar 04, 2012 PART B [id number] LEONARD LEWIS PATIENT -FO R-LIFE [facility] FOR LIFE WNR Aug 31, 2016 FOR LIFE [id number] [phone] LEONARD LEWIS PATIENT -FO R-LIFE [facility] RE FOR LIFE WNR Aug 31, 2016 FOR LIFE [id number] LEONARD LEWIS PATIENT Selected Encounter This section includes the information on record at [place] for the Encounter. Date/Time Encounter Type Encounter Description Reason Pro vider Source Feb 28, 2024 08:33 AM Outpatient Encounter COMMUNITY CARE CONSULT IHE Encounter Template Text not used by [place] Plan of Treatment: Future Appointments (+ 6 months) and Future Tests (+/- 45 days) The Plan of Treatment section includes future care activities for the patient from all [place] treatmentfacilities. This section includes future appointments and future orders which are active, pending or scheduled. Future Appointments This section includes appointments that were scheduled to occur 6 months from the date of the Encounter, up to a maximum of 20 appointments. The data comes from all [place] treatment facilities. Appointment Date/Time Appointment Type Appointme nt Facility Name Mar 05, 2024 12:00 PM AMBULATORY [place] [facility] Mar 12, 2024 03:30 PM [facility]ORY [facility] Mar 12, 2024 03:31 PM AM[facility]ULATORY - MEDICINE [facility] Mar 14, 2024 08:30 AM [facility]ORY [place] [facility] Apr 09, 2024 12:00 PM AMBULATORY - [place]IC[place] [facility] Apr 18, 2024 01:40 PM AM[facility]ORY [facility] [place]IC[place] [facility] May 02, 2024 09:41 AM AM[facility]ULATORY - [place]IC[place] [facility] May 02, 2024 01:00 PM AMBULATORY - NONE [place] [facility] May 10, 2024 01:30 PM [facility]ORY [place]IC[place] [facility] May 23, 2024 09:00 AM AMBULATORY - MEDICINE [facility] May 30, 2024 09:00 AM AMBULATORY - MEDICINE [facility] Jun 11, 2024 11:30 AM AMBULATORY - NONE [place] [facility] Jul 04, 2024 08:30 AM AM[facility]UL[facility]ORY - [place]IC[place] [facility] Lab Results: +/- 30 days of [...] Range Comment Feb 22, 2024 08:14 AM [facility] HGA1C Specimen Type: BLOOD No comment entered. Ordering Provider: DRE ALEX Report Released Date/Time: Feb 22, 2024 08:13 AM Reporting Lab: [place] [facility] [address] [place] [address] Performing Lab: [place] [facility] [address] [place] [address] HGA1C 5.8 4.0-6.0 Feb 22, 2024 08:14 AM [facility] CHOLESTEROL PANEL (PB) Specimen Type: PLASMA No comment entered. Ordering Provider: DRE ALEX Report Released Date/Time: Feb 22, 2024 08:13 AM Reporting Lab: [place] [facility] [address] [place] [address] Performing Lab: [place] [facility] [address] [place] [address] CHOLESTEROL 86 mg/dL 0-200 TRIGLYCERIDE 71 mg/dL 0-150 CALCULATED LDL 30.8 mg/dL HDL(New) 41.0 mg/dL H >40 HDL % OF TOTAL CHOLESTEROL (PB) 47.7 >25 Feb 22, 2024 08:14 AM [facility] COMPREHENSIVE METABOLIC PANEL Specimen Type: PLASMA No comment entered. Ordering Provider: DRE ALEX Report Released Date/Time: Feb 22, 2024 08:13 AM Reporting Lab: [place] [facility] [address] [place] [address] Performing Lab: [place] [facility] [address] [place] [address] CREATININE 5.13 mg/dL H 0.7-1.3 UREA NITROGEN [...] ALL of a patient's completed or amended [place] Advance and Rescinded Directives. The entries below indicate that a directive exists for the patient, but an actual copy is not included with this document. The data comes from all [place] facilities. Date Advance Directives Provider Source May 07, 2014 ADVANCE DIRECTIVE JUAN GILLETTE [facility] Radiology Reports: +/- 30 days of [...] the Encounter. The data comes from all [place] treatment facilities. Date/Time Radiology Report Provider Source January 30, 2024 10:52 AM LDCT LCS 1, 3 OR 6 MONTH FOLLOW UP: LEONARD LEWIS [id number] -1950 M Ex Date: JANUARY 30, 2024@10:52 Req Phys: DRE ALEX Loc: PB-ADMIN LUNG SCREENING (Req'g Img Loc: PB-CT IMAGING Service: Unknown LUZ MARIA [place] [facility] [place]MY NAM [id number] (Case [id number] COMPLETE) LDCT LCS 1, 3 OR 6 MONTH FOLLOW U(CT Detailed) CPT:05009 Reason for Study: LCS 3 month f/u LRADS 0 Clinical History: 73 yr old smoking hx 1-2ppd since age 15yrs; quit December 2020. LRADS 0 on 10.31.2023 w/rec 3 mo f/u per rad [place] would like exam on or Report Status: Verified Date Reported: JANUARY 30, 2024 Date Verified: JANUARY 30, 2024 Integrative Medicine Physician E-Sig:/SEPIDEH/RONI MCKEON Report: EXAM: LDCT LCS 1, 3 [...] persists Primary Interpreting Staff: RONI MCKEON, RADIOLOGIST (Integrative Medicine Physician) /RONI Hi [facility] Encounter Notes: All associated encounter notes This section contains the clinical notes associated to the Encounter. Date/Time Encounter Note(s) Provider Source Apr 17, 2024 01:56 PM ADDENDUM: LOCAL TITLE: Addendum STANDARD TITLE: ADDENDUM DATE OF NOTE: APR 17, 2024@13:56:45 ENTRY DATE: APR 17, 2024@13:56:47 AUTHOR: VIVIANA CAO EXP COSIGNER: URGENCY: STATUS: COMPLETED ED record DOS 02/27/2024 received via [employer] upload to [employer]. NO PACT assigned. Status changed to Closed- Approved for 170. Referral# [id number]. /sepideh/ VIVIANA CAO LPN Signed: 04/17/2024 13:58 Receipt Acknowledged By: 04/18/2024 14:44 /sepideh/ WILFRIDO NOYOLA RN === --- Original Document --- 02/28/24 [facility] PRESENTING CARE COORD PLAN NOTE: Emergency Notification Intake Date Presenting to the Facility: Feb Method of Contact: Submitted to Centralized Call Center Notification ID: [id number] [facility] Referral #: [facility] [place] Name: Hospital: [facility] Address: City: [place] State: [place] Zip Code: Phone : [facility] Facility Point of Contact: Name: Phone: Chief complaint: throwing up blood Primary Diagnosis: Disposition Admitted Route of Admission: Date of Admission: Feb Admitting Diagnosis: throwing up blood Community Care Provider: Confirm Level of Care: MR to be requested upon DC /sepideh/ DEB MAS MSA Signed: 02/28/2024 08:34 Receipt Acknowledged By: 02/28/2024 11:37 /sepideh/ WILFRIDO NOYOLA RN 02/28/2024 09:23 /sepideh/ VIVIANA CAO LPN 02/28/2024 ADDENDUM STATUS: COMPLETED CONTINUED STAY REVIEW Contact Date: Feb Date of Admission: Feb Date of Procedure: Not applicable Facility Name: [facility] Point of Contact Name: TILA Point of Contact Dept: MAINOR Point of Contact Point of Contact Fax Number: Method of Contact: Phone Call Inpatient level of care required: Observation Spoke with MAINOR Kauffman. Pt through up small ball of blood. Labs stable this morning. No more episodes. Should discharge today. /addie NOYOLA RN Signed: 02/28/2024 09:16 02/28/2024 ADDENDUM STATUS: COMPLETED Pt was treated at [facility] and admitted. Discharged. 1703 CLINICAL REVIEW. /sepideh/ WILFRIDO NOYOLA RN Signed: 02/28/2024 10:52 04/12/2024 ADDENDUM STATUS: COMPLETED MR REQUESTED FOR SECOND TIME /addie NOYOLA RN Signed: 04/12/2024 06:36 04/18/2024 ADDENDUM STATUS: UNSIGNED You may not VIEW this UNSIGNED Addendum. VIVIANA CAO [facility] Feb 28, 2024 08:33 AM NONVA NOTE: LOCAL TITLE: COMMUNITY CARE-YOUNG SELF PRESENTING CARE COORD PLAN STANDARD TITLE: NONVA NOTE DATE OF NOTE: FEB 28, 2024@08:33 ENTRY DATE: FEB 28, 2024@08:34:02 AUTHOR: DEB MAS EXP COSIGNER: URGENCY: STATUS: COMPLETED COMMUNITY CARE-YOUNG SELF PRESENTING CARE COORD PLAN NOTE Has ADDENDA Emergency Notification Intake Date Presenting to the Facility: Feb Method of Contact: Submitted to Centralized Call Center Notification ID: [id number] Name: Hospital: [facility] Address: City: [place] State: [place] Zip Code: Phone : Community Facility Point of Contact: Name: Phone: Chief complaint: throwing up blood Primary Diagnosis: Disposition Admitted Route of Admission: Date of Admission: Feb Admitting Diagnosis: throwing up blood Community Care Provider: Confirm Level of Care: MR to be requested upon DC /addie MAS MSA Signed: 02/28/2024 08:34 Receipt Acknowledged By: 02/28/2024 11:37 /addie NOYOLA RN 02/28/2024 09:23 /sepideh/ VIVIANA CAO LPN 02/28/2024 ADDENDUM STATUS: COMPLETED CONTINUED STAY REVIEW Contact Date: Feb Date of Admission: Feb Date of Procedure: Not applicable Facility Name: [facility] Point of Contact Name: TILA Point of Contact Dept: MAINOR Point of Contact Point of Contact Fax Number: Method of Contact: Phone Call Inpatient level of care required: Observation Spoke with MAINOR Kauffman. Pt through up small ball of blood. Labs stable this morning. No more episodes. Should discharge today. /addie NOYOLA RN Signed: 02/28/2024 09:16 02/28/2024 ADDENDUM STATUS: COMPLETED Pt was treated at [facility] and admitted. Discharged. 1702 CLINICAL REVIEW. /addie NOYOLA RN Signed: 02/28/2024 10:52 04/12/2024 ADDENDUM STATUS: COMPLETED MR REQUESTED FOR SECOND TIME /addie NOYOLA RN Signed: 04/12/2024 06:36 04/17/2024 ADDENDUM STATUS: COMPLETED ED record DOS 02/27/2024 received via efax upload to [employer]. NO PACT assigned. Status changed to Closed- Approved for 1703. Referral# [id number]. /addie CAO LPN Signed: 04/17/2024 13:58 Receipt Acknowledged By: 04/18/2024 14:44 /addie NOYOLA RN 04/18/2024 ADDENDUM STATUS: COMPLETED MR REVIEWED. DIscharged 04/29/2024. Follow-up [facility] PCP next available. No LOCAL PACT assigned. /addie NOYOLA RN Signed: 04/18/2024 14:45 DEB MAS MALIBUHIRAL
--- OUTSIDE RECORDS SUMMARY | 2024-09-07 10:53 | XMS_ITS ---
Author Name [facility] [place] [facility] [place] Address [address] [place] [address] Care Team Providers Care Health Director Name Role Phone DRE ALEX Primary Care [...] PART A Mar 04, 2012 PART A [id number] ALONSO DELGADO PATIENT MEDICARE (WNR) MEDICARE (M) PART B Mar 04, 2012 PART B [id number] ALONSO DELGADO PATIENT MEDICARE (WNR) MEDICARE (M) PART A Mar 04, 2012 PART A [id number] ALONSO DELGADO PATIENT MEDICARE (WNR) MEDICARE (M) PART B Mar 04, 2012 PART B [id number] [phone] ALONSO DELGADO PATIENT MEDICARE (WNR) MEDICARE (M) PART B Mar 04, 2012 PART B [id number] [phone] ALONSO DELGADO PATIENT MEDICARE (WNR) MEDICARE (M) PART A Mar 04, 2012 PART A [id number] [phone] ALONSO DELGADO PATIENT -FO R-LIFE [facility] RE FOR LIFE WNR Aug 31, 2016 FOR LIFE [id number] [phone] ALONSO DELGADO PATIENT -FO R-LIFE TRICA RE FOR LIFE WNR Aug 31, 2016 FOR LIFE [id number] ALONSO DELGADO PATIENT Selected Encounter This section includes the information on record at [place] for the Encounter. Date/Time Encounter Type Encounter Description Reason Pro vider Source Feb 29, 2024 01:18 PM Outpatient Encounter COMMUNITY CARE CONSULT IHE Encounter Template Text not used by [place] Plan of Treatment: Future Appointments (+ 6 months) and Future Tests (+/- 45 days) The Plan of Treatment section includes future care activities for the patient from all [place] treatmentfacilities. This section includes future appointments and future orders which are active, pending or scheduled. Future Appointments This section includes appointments that were scheduled to occur 6 months from the date of the Encounter, up to a maximum of 20 appointments. The data comes from all [place] treatment facilities. Appointment Date/Time Appointment Type Appointme nt Facility Name Mar 05, 2024 12:00 PM AM[facility]ULATORY [place] [facility] Mar 12, 2024 03:30 PM AMBULATORY - MEDICINE [facility] Mar 12, 2024 03:31 PM AMBULATORY - MEDICINE [facility] Mar 14, 2024 08:30 AM AMBULATORY - [place]ICINE [place] [facility] Apr 09, 2024 12:00 PM AMBULATORY - MEDICINE [place] [facility] Apr 18, 2024 01:40 PM AMBULATORY - [place]ICINE [place] [facility] May 02, 2024 09:41 AM AMBULATORY - MEDICINE [place] [facility] May 02, 2024 01:00 PM AMBULATORY - NONE [place] [facility] May 10, 2024 01:30 PM AMBULATORY [place]ICINE [place] [facility] May 23, 2024 09:00 AM AMBULATORY - MEDICINE [facility] May 30, 2024 09:00 AM AMBULATORY - MEDICINE [facility] Jun 11, 2024 11:30 AM AMBULATORY - NONE [place] [facility] Jul 04, 2024 08:30 AM AMBULATORY - MEDICINE [place] [facility] Lab Results: +/- 30 days of [...] Range Comment Feb 22, 2024 08:14 AM [facility] HGA1C Specimen Type: BLOOD No comment entered. Ordering Provider: DRE ALEX Report Released Date/Time: Feb 22, 2024 08:13 AM Reporting Lab: [place] [facility] [address] [place] [address] Performing Lab: [place] [facility] [address] [place] [address] HGA1C 5.8 4.0-6.0 Feb 22, 2024 08:14 AM [facility] CHOLESTEROL PANEL (PB) Specimen Type: PLASMA No comment entered. Ordering Provider: DRE ALEX Report Released Date/Time: Feb 22, 2024 08:13 AM Reporting Lab: [place] [facility] [address] [place] [address] Performing Lab: [place] [facility] [address] [place] [address] CHOLESTEROL 86 mg/dL 0-200 TRIGLYCERIDE 71 mg/dL 0-150 CALCULATED LDL 30.8 mg/dL HDL(New) 41.0 mg/dL H >40 HDL % OF TOTAL CHOLESTEROL (PB) 47.7 >25 Feb 22, 2024 08:14 AM [facility] COMPREHENSIVE METABOLIC PANEL Specimen Type: PLASMA No comment entered. Ordering Provider: DRE ALEX Report Released Date/Time: Feb 22, 2024 08:13 AM Reporting Lab: [place] [facility] [address] [place] [address] Performing Lab: [place] [facility] [address] [place] [address] CREATININE 5.13 mg/dL H 0.7-1.3 UREA NITROGEN [...] ALL of a patient's completed or amended [place] Advance and Rescinded Directives. The entries below indicate that a directive exists for the patient, but an actual copy is not included with this document. The data comes from all [place] facilities. Date Advance Directives Provider Source May 07, 2014 ADVANCE DIRECTIVE JUAN GILLETTE [facility] Radiology Reports: +/- 30 days [...] the Encounter. The data comes from all [place] treatment facilities. Date/Time Radiology Report Provider Source January 30, 2024 10:52 AM LDCT LCS 1, 3 OR 6 MONTH FOLLOW UP: ALONSO DELGADO [id number] -1950 M Ex Date: JANUARY 30, 2024@10:52 Req Phys: DRE ALEX Loc: PB-ADMIN LUNG SCREENING (Req'g Img Loc: PB-CT IMAGING Service: Unknown LUZ MARIA MATA [facility] JIMMY NAM [address] (Case 816 COMPLETE) LDCT LCS 1, 3 OR 6 MONTH FOLLOW U(CT Detailed) CPT:35440 Reason for Study: LCS 3 month f/u LRADS 0 Clinical History: 73 yr old smoking hx 1-2ppd since age 15yrs; quit December 2020. LRADS 0 on 10.31.2023 w/rec 3 mo f/u per rad would like exam on or Report Status: Verified Date Reported: JANUARY 30, 2024 Date Verified: JANUARY 30, 2024 [employer] E-Sig:/ES/RONI MCKEON Report: EXAM: LDCT LCS 1, [...] persists Primary Interpreting Staff: RONI MCKEON, RADIOLOGIST ([employer] Up Helper Banquet) /RONI Hi [facility] Encounter Notes: All associated encounter notes This section contains the clinical notes associated to the Encounter. Date/Time Encounter Note(s) Provider Source Feb 29, 2024 01:18 PM LETTERS: LOCAL TITLE: COMMUNITY CARE-REFERRAL PB (AUTO-PRINT) STANDARD TITLE: LETTERS DATE OF NOTE: FEB 29, 2024@13:18:56 ENTRY DATE: FEB 29, 2024@13:18:56 AUTHOR: ARIELLE CHAPIN COSIGNER: URGENCY: STATUS: COMPLETED Alonso Delgado [address] [place], [place] [address] Feb 29, 2024 Dear ALONSO DELGADO, Your [facility] Health Care Provider has ordered medically necessary health care services that are not available at the [facility]. This medical service (PULMONARY) has been referred to the local Community Care Department to coordinate your care with an outside, in-network provider at [place] expense. Our community Care Team has made attempt(s) to contact you by phone regarding scheduling. Unfortunately, we've been unable to reach you. If you have any questions regarding the referral or would like to schedule these authorized community care services, please contact the [place] Facility Community Care Office at [phone] Ext [phone]. If we do not hear from you within 14 calendar days from the date of this letter, the authorization for these services will be discontinued and returned to your VA provider. Thank you for the opportunity to serve you. Luz Maria Mata [facility] [address] [facility] [address] ARIELLE CHAPIN [facility]
--- OUTSIDE RECORDS SUMMARY | 2024-09-07 10:53 | XMS_ITS | Encounter Summary ---
Author Name [facility] [place] [facility] [place] [facility] [place] Address [address] [place] [address] Care Team Providers Care Head Sampler Name Role Phone DRE ALEX Primary Care [...] PART A Mar 04, 2012 PART A [id number] LEONARD LEWIS PATIENT MEDICARE (WNR) MEDICARE (M) PART B Mar 04, 2012 PART B [id number] LEONARD LEWIS PATIENT MEDICARE (WNR) MEDICARE (M) PART A Mar 04, 2012 PART A [id number] LEONARD LEWIS PATIENT MEDICARE (WNR) MEDICARE (M) PART B Mar 04, 2012 PART B [id number] LEONARD LEWIS PATIENT MEDICARE (WNR) MEDICARE (M) PART B Mar 04, 2012 PART B [id number] [phone] LEONARD LEWIS PATIENT MEDICARE (WNR) MEDICARE (M) PART A Mar 04, 2012 PART A [id number] [phone] LEONARD LEWIS PATIENT -FO R-LIFE [facility] RE FOR LIFE WNR Aug 31, 2016 FOR LIFE [id number] [phone] LEONARD LEWIS PATIENT -FO R-LIFE [place] RE FOR LIFE WNR Aug 31, 2016 FOR LIFE [id number] LEONARD LEWIS PATIENT Selected Encounter This section includes the information on record at [place] for the Encounter. Date/Time Encounter Type Encounter Description Reason Pro vider Source Mar 01, 2024 02:55 PM Outpatient Encounter COMMUNITY CARE CONSULT IHE Encounter Template Text not used by [place] Plan of Treatment: Future Appointments (+ 6 months) and Future Tests (+/- 45 days) The Plan of Treatment section includes future care activities for the patient from all [place] treatmentfacilities. This section includes future appointments and future orders which are active, pending or scheduled. Future Appointments This section includes appointments that were scheduled to occur 6 months from the date of the Encounter, up to a maximum of 20 appointments. The data comes from all [place] treatment facilities. Appointment Date/Time Appointment Type Appointme nt Facility Name Mar 05, 2024 12:00 PM AMBULATORY - [place]IC[place] [facility] Mar 12, 2024 03:30 PM AMBULATORY - MEDICINE [facility] Mar 12, 2024 03:31 PM AMBULATORY - MEDICINE [facility] Mar 14, 2024 08:30 AM AMBULATORY - [place]IC[place] [facility] Apr 09, 2024 12:00 PM AMBULATORY - [place]IC[place] [facility] Apr 18, 2024 01:40 PM AMBULATORY - [place]IC[place] [facility] May 02, 2024 09:41 AM AMBULATORY - [place]IC[place] [facility] May 02, 2024 01:00 PM AMBULATORY - NONE [place] [facility] May 10, 2024 01:30 PM AMBULATORY - [place]IC[place] [facility] May 23, 2024 09:00 AM AMBULATORY - MEDICINE [facility] May 30, 2024 09:00 AM AMBULATORY - MEDICINE [facility] Jun 11, 2024 11:30 AM AMBULATORY - NONE [place] [facility] Jul 04, 2024 08:30 AM AMBULATORY - [place]IC[place] [facility] Lab Results: +/- 30 days of [...] Range Comment Feb 22, 2024 08:14 AM [facility] HGA1C Specimen Type: BLOOD No comment entered. Ordering Provider: DRE ALEX Report Released Date/Time: Feb 22, 2024 08:13 AM Reporting Lab: [place] [facility] [address] [place] [address] Performing Lab: [place] [facility] [address] [place] [address] HGA1C 5.8 4.0-6.0 Feb 22, 2024 08:14 AM [facility] CHOLESTEROL PANEL (PB) Specimen Type: PLASMA No comment entered. Ordering Provider: DRE ALEX Report Released Date/Time: Feb 22, 2024 08:13 AM Reporting Lab: [place] [facility] [address] [place] [address] Performing Lab: [place] [facility] [address] [place] [address] CHOLESTEROL 86 mg/dL 0-200 TRIGLYCERIDE 71 mg/dL 0-150 CALCULATED LDL 30.8 mg/dL HDL(New) 41.0 mg/dL H >40 HDL % OF TOTAL CHOLESTEROL (PB) 47.7 >25 Feb 22, 2024 08:14 AM [facility] COMPREHENSIVE METABOLIC PANEL Specimen Type: PLASMA No comment entered. Ordering Provider: DRE ALEX Report Released Date/Time: Feb 22, 2024 08:13 AM Reporting Lab: [place] [facility] [address] [place] [address] Performing Lab: [place] [facility] [address] [place] [address] CREATININE 5.13 mg/dL H 0.7-1.3 UREA NITROGEN [...] ALL of a patient's completed or amended [place] Advance and Rescinded Directives. The entries below indicate that a directive exists for the patient, but an actual copy is not included with this document. The data comes from all [place] facilities. Date Advance Directives Provider Source May 07, 2014 ADVANCE DIRECTIVE JUAN GILLETTE ALDEN FF [facility] Encounter Notes: All associated encounter notes This section contains the clinical notes associated to the Encounter. Date/Time Encounter Note(s) Provider Source Mar 01, 2024 03:12 PM LETTERS: LOCAL TITLE: COMMUNITY CARE-REQUEST FOR SERVICES (RFS) LETTER PB STANDARD TITLE: LETTERS DATE OF NOTE: MAR 01, 2024@15:12 ENTRY DATE: MAR 01, 2024@15:12:15 AUTHOR: MATT SIMEON COSIGNER: URGENCY: STATUS: COMPLETED Dr Bazan [facility] - [address] [address] Dear Provider, Information: Patient Name: LEONARD LEWIS Date of : Mar A new process is in place and the consult has to be reviewed by the I team to determine the necessity of the request. Upon review, a following determination will be made: If the [place] has been found to be eligible for care in the community, a new authorization will be issued. If found to not be eligible for care in the community, a new authorization will be denied for the [facility] to cover any appointments. IT IS RECOMMENDED NO OFFICE VISITS WITHOUT HAVING A CURRENT AUTHORIZATION IN PLACE. FAILURE TO HAVE A CURRENT AUTHORIZATION AND SEEING A WILL RESULT IN NO PAYMENT FROM THE VA. PRISCILLA Mena wellness spa manager As of 03/15/21, I have been advised that no RFS will be processed unless it is signed by the Provider and includes medical documentation, if documentation has previously been sent please note upon this RFS. Please fax all RFS's to [phone]. For providers to see RFS form: https://www.va.gov/find-for ms/about- cipa-34-59839/ Provider Manual: https://www.[employer]/Co ntent/Provider%20Manual_ _Medicare.pdf Billing Questions? [email or web address]://www.[employer]/sit e/vaccn/main/public/login#/ home MATT SIMEON [facility] Mar 01, 2024 03:08 PM NONVA NOTE: LOCAL TITLE: COMMUNITY CARE-REQUEST FOR SERVICE NOTE PB STANDARD TITLE: NONVA NOTE DATE OF NOTE: MAR 01, 2024@15:08 ENTRY DATE: MAR 01, 2024@15:08:53 AUTHOR: MATT SIMEON EXP COSIGNER: URGENCY: STATUS: COMPLETED COMMUNITY CARE-REQUEST FOR SERVICE NOTE PB Has ADDENDA Request for Services (RFS) documentation has been sent for scanning to [facility] Community Care Consult: COMMUNITY CARE-cardiology Consult Number: [id number] Authorization Number: [id number] Date sent to scanning: Feb A Request for Service (RFS) form [id number] has been received which includes the following: Care Requested:continuation of care with Dr Genesis Tapia on 03/14/24 @ 0830 Hx of Afib (i48.0), CAD (i25.10), Bypass graft (z95.1) ICD-10 Code:i25.10 Procedure Code: 71513 Date [facility] received request: Feb Date service required (PID): Mar Requesting Community Provider Information: Dr Bazan [facility] - [address] [address] alternate fax for [place] Referrals: [phone] /sepideh/ ROLAND Younghing [facility] Signed: 03/01/2024 15:12 02/23/2024 ADDENDUM STATUS: COMPLETED [facility] Scanned Document - Addendum. Community Care Consult: [facility]-card[facility] Consult Number: [id number] Authorization Number: [id number] Date sent to scanning: Feb SCANNED DOCUMENT SIGNATURE NOT REQUIRED Electronically Filed: 03/14/2024 by: RAUL Gironhing [facility] MATT SIMEON [facility]
--- OUTSIDE RECORDS SUMMARY | 2024-09-07 10:54 | XMS_ITS ---
Author Name [facility] Organization [facility] [place] Address [address] [place] [address] Care Team Providers Care Credit Products Officer Name Role Phone DRE ALEX Primary Care [...] PART B Mar 04, 2012 PART B [id number] [phone] ALONSO DELGADO PATIENT MEDICARE (WNR) MEDICARE (M) PART A Mar 04, 2012 PART A [id number] [phone] ALONSO DELGADO PATIENT MEDICARE (WNR) MEDICARE (M) PART A Mar 04, 2012 PART A [id number] [phone] DO JOSHUAYLE PATIENT MEDICARE (WNR) MEDICARE (M) PART B Mar 04, 2012 PART B [id number] ALONSO DELGADO PATIENT MEDICARE (WNR) MEDICARE (M) PART A Mar 04, 2012 PART A [id number] ALONSO DELGADO PATIENT MEDICARE (WNR) MEDICARE (M) PART B Mar 04, 2012 PART B [id number] ALONSO DELGADO PATIENT -FO R-LIFE [facility] RE FOR LIFE WNR Aug 31, 2016 FOR LIFE [id number] ALONSO DELGADO PATIENT -FO R-LIFE [facility] RE FOR LIFE WNR Aug 31, 2016 FOR LIFE [id number] [phone] ALONSO DELGADO PATIENT Selected Encounter This section includes the information on record at MD for the Encounter. Date/Time Encounter Type Encounter Description Reason Provider Source Apr 09, 2024 12:00 PM OFF/OP EST JANUARY X REQ PHY/QHP SLEEP MEDICINE ICD-10-CM G47.33 Obstructive sleep apnea (adult) (pediatric) MIREYA RAJAN [facility] Encounter Template Text not used by MD Assessments - Encounter Diagnoses This section includes the primary and secondary diagnoses documented for the Encounter. Date/Time Primary/Secondary Diagnosis Diagnosis Name Provider Source Apr 09, 2024 11:54 AM PRIMARY Obstructive sleep apnea (adult) (pediatric) MIREYA RAJAN [facility] Plan of Treatment: Future Appointments (+ 6 months) and Future Tests (+/- 45 days) The Plan of Treatment section includes future care activities for the patient from all MD treatmentfacilities. This section includes future appointments and future orders which are active, pending or scheduled. Future Appointments This section includes appointments that were scheduled to occur 6 months from the date of the Encounter, up to a maximum of 20 appointments. The data comes from all MD treatment facilities. Appointment Date/Time Appointment Type Appointme nt Facility Name Apr 18, 2024 01:40 PM AMBULATORY - MEDICINE [place] [facility] May 02, 2024 09:41 AM AMBULATORY - MEDICINE [place] [facility] May 02, 2024 01:00 PM AMBULATORY - NONE [place] May 10, 2024 01:30 PM AMBULATORY - MEDICINE [place] [facility] May 23, 2024 09:00 AM AMBULATORY - MEDICINE [facility] May 30, 2024 09:00 AM [facility] [place] [facility] Jun 11, 2024 11:30 AM AMBULATORY - NONE [place] [facility] Jul 04, 2024 08:30 AM AMBULATORY - MEDICINE [place] [facility] Lab Results: +/- 30 days [...] Result - Unit Interpretation Reference Range Comment May 02, 2024 10:09 AM [facility] MAGNESIUM Specimen Type: PLASMA No comment entered. Ordering Provider: DARRYL COBURN Report Released Date/Time: May 02, 2024 10:01 AM Reporting Lab: [place] [facility] [address] [place] [address] Performing Lab: [place] [facility] [address] [place] [address] MAGNESIUM 1.59 mg/dL L 1.6-2.6 May 02, 2024 10:09 AM [place] [facility] HEPATIC FUNCTION PROFILE (PB) Specimen Type: PLASMA No comment entered. Ordering Provider: DARRYL COBURN Report Released Date/Time: May 02, 2024 10:01 AM Reporting Lab: [place] [facility] [address] [place] [address] Performing Lab: [place] [facility] [address] [place] [address] PROTEIN 6.9 g/dL 6-8.6 ALBUMIN 4.2 g/dL 3.4-5 TOTAL BILIRUBIN 0.7 mg/dL 0.2-1.2 ALKALINE PHOSPHATASE 85 U/L 40-150 AST/SGOT 20 U/L 5-34 ALT/SGPT 27 U/L 8-40 CONJ. BILIRUBIN 0.3 mg/dL 0-0.5 May 02, 2024 10:09 AM [facility] LIP[facility] Specimen Type: PLASMA No comment entered. Ordering Provider: DARRYL COBURN Report Released Date/Time: May 02, 2024 10:01 AM Reporting Lab: [place] [facility] [address] [place] [address] Performing Lab: [place] [facility] [address] [place] [address] LIPASE <4 U/L L 8-78 May 02, 2024 10:09 AM [place] [facility] AMYLASE Specimen Type: PLASMA No comment entered. Ordering Provider: DARRYL COBURN Report Released Date/Time: May 02, 2024 10:01 AM Reporting Lab: [place] [facility] [address] [place] [address] Performing Lab: [place] [facility] [address] [place] [address] AMYLASE 47 U/L 25-125 May 02, 2024 10:09 AM [place] [facility] BASIC METABOLIC PANEL Specimen Type: PLASMA No comment entered. Ordering Provider: DARRYL COBURN Report Released Date/Time: May 02, 2024 10:01 AM Reporting Lab: [place] [facility] [address] [place] [address] Performing Lab: [place] [facility] [address] [place] [address] CREATININE 4.65 mg/dL H 0.7-1.3 UREA NITROGEN 28 mg/dL H 9-25 GLUCOSE 147 mg/dL H 72-99 SODIUM 140 meq/L 136-145 POTASSIUM 4.2 meq/L 3.5-5 CHLORIDE 96 meq/L L 98-107 CARBON DIOXIDE 32 meq/L H 22-31 CALCIUM 9.3 mg/dL 8.4-10.4 EGFR (CKD-EPI 2020) 12 May 02, 2024 10:09 AM [place] [facility] URIC ACID Specimen Type: PLASMA No comment entered. Ordering Provider: DARRYL COBURN Report Released Date/Time: May 02, 2024 10:01 AM Reporting Lab: [place] [facility] [address] [place] [address] Performing Lab: [place] [facility] [address] [place] [address] URIC ACID 2.6 mg/dL L 3.5-7.2 May 02, 2024 10:09 AM [place] [facility] CBC Specimen Type: BLOOD No comment entered. Ordering Provider: DARRYL COBURN Report Released Date/Time: May 02, 2024 10:01 AM Reporting Lab: [place] [place] [facility] [address] [place] [address] Performing Lab: [place] [facility] [address] [address] WBC 7.2 10*3/uL 3.6-11.2 RBC 3.44 10*6/uL L 4.10-5.70 HGB 10.8 g/dL L 13.1-16.8 HCT 33.6 L 38.2-48.4 MCV 97.7 fL 80.0-100.0 MCH 31.4 pg 27.0-34.0 MCHC 32.1 g/dL L 33.0-36.0 PLT 171 10*3/uL 150-400 MPV 9.7 fL 7.5-11.2 RDW 14.9 11.8-15.1 LYMPHOCYTES, AUTO % 15.2 MONOCYTES, AUTO % 7.0 NEUTROPHILS, AUTO % 74.3 EOSINOPHILS, AUTO % 2.4 BASOPHILS, AUTO % 0.7 LYMPHOCYTES, ABSOLUTE 1.09 10*3/uL 0.77-4.50 MONOCYTES, ABSOLUTE 0.50 10*3/uL 0.19-0.8 NEUTROPHILS, ABSOLUTE 5.32 10*3/uL 2.10-8.00 EOSINOPHILS, ABSOLUTE 0.17 10*3/uL 0.00-0.60 BASOPHILS, ABSOLUTE 0.05 10*3/uL 0.00-0.20 IMMATURE GRANS, AUTO % 0.4 IMMATURE GRANS, AUTO ABS 0.03 10*3/uL 0.00-0.05 Social History: Smoking Status (Most current) and Tobacco Use (All prior to encounter date) This section includes the most current, and the historical, smoking and tobacco- related health factors from the MD facility where the Encounter took place. Current Smoking Status This section includes the most current smoking, or tobacco-related health factor, from the MD facility where the Encounter took place. Date/Time Current Smoking Status Comment Facil ity Jun 15, 2011 02:49 PM TOBACCO OFFERED PT MEDS (PROVIDE R) [facility] Tobacco Use History This section includes a history of the smoking, or tobacco-related health factors, that were collected on or before the date of the Encounter. The data comes from the MD facility where the Encounter took place. Date/Time Smoking Status/Tobacco Use Comment F acility Jun 15, 2011 02:49 PM TOBACCO OFFERED PT MEDS (PROVIDE R) [facility] Jun 15, 2011 02:[address] OP SMOKING CLINIC [facility] Advance Directives: All historical and current Section Date Range: From patient's date of to the date document was created. This section includes ALL of a patient's completed or amended MD Advance and Rescinded Directives. The entries below indicate that a directive exists for the patient, but an actual copy is not included with this document. The data comes from all MD facilities. Date Advance Directives Provider Source May 07, 2014 ADVANCE DIRECTIVE JUAN GILLETTE [facility] Radiology Reports: +/- 30 days [...] the Encounter. The data comes from all MD treatment facilities. Date/Time Radiology Report Provider Source May 02, 2024 11:47 AM LDCT LCS 1, 3 OR 6 MONTH FOLLOW UP: ALONSO DELGADO [id number] -1950 M Exm Date: MAY 02, 2024@11:47 Req Phys: GABRIELE WARREN Pat Loc: PB-PHONE LUNG SCREEN (Req'g Lo Img Loc: PB-CT IMAGING Service: [place] [address] (Case [id number] COMPLETE) LDCT LCS 1, 3 OR 6 MONTH FOLLOW U(CT Detailed) CPT:14308 Reason for Study: LCS 3 month f/u Clinical History: 01.30.2024 LRADS 4A; 5.5mm left lobe Smoking hx: 1.5ppd x 55 yrs; quit 2020 [place] has dialysis M,W,F. Please schedule for / Report Status: Verified Date Reported: MAY 03, 2024 Date Verified: MAY 03, 2024 Building Estimator E-Sig: Report: EXAM: LDCT LCS 1, 3 OR 6 MONTH FOLLOW UP ADDITIONAL HISTORY: N/A COMPARISON: CT chest 01/30/2024, 10/31/2023, 04/13/2020 PROTOCOL: Screening protocol, low dose, non-contrast CT chest was performed at the local MD facility in accordance with Lung-Rads 2021. Additional coronal and sagittal reconstructions. MIP reconstructions were reviewed. 2181 images were received by the MD National Teleradiology Program (NTP) for interpretation. RADIATION DOSE: CTDI(vol): 2.8 mGy DLP: 111.0 mGy*cm INDEX NODULE: No suspicious pulmonary nodule. OTHER NODULES: New left upper lobe 2 mm solid nodule (series 3 image 49) and right middle lobe 3 mm solid nodule (image 138). Left upper lobe 3 mm solid nodule (series 3 image 76) and lingular 4 mm solid nodule (image 191) are unchanged compared with January 2024. LUNG/AIRWAY FINDINGS: Small left pleural effusion and pleural thickening is not significantly changed compared with October 2023. Consolidation in the adjacent left lower lobe with associated parenchymal bands is also not significantly changed compared with October 2023. The central airways are patent. EMPHYSEMA: Mild HEART, MEDIASTINUM AND LYMPH NODES: Interval left atrial appendage occlusion device placement. Similar multichamber enlargement of the heart. Dual-chamber cardiac pacing device with leads terminating in the right atrium and right ventricle. There is aortic valve calcification, which can be associated with aortic stenosis. There are mitral annular calcifications. No pericardial effusion. VISUAL CORONARY ARTERY CALCIFICATIONS: CABG UPPER ABDOMEN: Evaluation is limited by low-dose technique. Status post cholecystectomy. The left kidney is not seen. Pancreatic calcifications, likely the sequelae of pancreatitis. BONES, SOFT TISSUES, AND ADDITIONAL FINDINGS: Status post sternotomy. Degenerative changes of the spine. Fractures of the right 6th and 7th ribs, favored subacute. Impression: LUNG-RADS: 2: Benign. New solid nodules measuring up to 3 mm (LUNG-RADS 2 per 2022 criteria). RECOMMENDATION: [address] follow-up, if patient meets screening criteria. LUNG-RADS MODIFIER: S: Findings unrelated to lung cancer. Consolidation in the left lower lobe adjacent to pleural thickening/effusion with associated parenchymal bands and volume loss is also not significantly changed compared with October 2023, favored to reflect atelectasis. READING PHYSICIAN: Luz Maria Alan M.D. -[id number] 05/03/2024 12:31 EDT [facility] National Teleradiology Program [phone] (For Medical Practitioner Use Only) Attention Patients / Veterans: If you have questions or concerns about these test results, please contact your ordering provider or primary care team. Primary Interpreting Staff: RADIOLOGY,OUTSIDE SERVICE, Staff Physician / RADIOLOGY,OUTSIDE SERVICE [facility] May 02, 2024 10:08 AM OBSTRUCTIVE SERIES : ALONSO DELGADO [facility] [id number] -1950 M Exm Date: MAY 02, 2024@10:08 Req Phys: DARRYL COBURN Loc: PB-[facility] [place] (Req'g Loc) Img Loc: PB-RADIOLOGY Service: [place] [address] (Case [id number] COMPLETE) OBSTRUCTIVE SERIES (RAD Detailed) CPT:72230 Reason for Study: nausea, constipation for 6 weeks Clinical History: nausea, constipation for 6 weeks Report Status: Verified Date Reported: MAY 02, 2024 Date Verified: MAY 02, 2024 Building Estimator E-Sig:/ES/RONI MCKEON Report: Obstructive series Chest reveals small left pleural effusion. There appears to be infiltrates and possibly mild consolidative process left lung base. Right lung clear. Emphysematous changes. Heart normal size. Plaque thoracic aorta. Postop changes. Pacemaker noted. Old healed right rib fractures. Supine and erect KUB reveals bowel gas and fecal debris throughout most of the colon including the rectum. Occasional mildly distended air-filled loop of small which is nonspecific. Postop changes right upper quadrant, right and left lower quadrants. No pneumoperitoneum. No definite organomegaly. Plaque in the aorta, splenic artery, renal arteries and iliac arteries. Plaque in the right renal artery versus right renal calcification. Degenerative change involving the spine, sacroiliac joints and hip joints. Impression: 1. COPD 2. Small left pleural effusion 3. Infiltrates and possible mild consolidative process left lung base 4. Nonobstructive bowel gas pattern with large amount bowel gas and fecal debris throughout most the colon. Constipation should be considered 5. Plaque in the right renal artery versus right renal calcification Primary Interpreting Staff: RONI MCKEON, RADIOLOGIST (Building Estimator) /RONI Hi [facility] Encounter Notes: All associated encounter notes This section contains the clinical notes associated to the Encounter. Date/Time Encounter Note(s) Provider Source Apr 09, 2024 07:14 AM SLEEP MEDICINE NOT E: LOCAL TITLE: CPAP CLINIC NOTE STANDARD TITLE: SLEEP MEDICINE NOTE DATE OF NOTE: APR 09, 2024@07:14 ENTRY DATE: APR 09, 2024@07:14:08 AUTHOR: MIREYA RAJAN EXP COSIGNER: URGENCY: STATUS: COMPLETED DIAG:DANELLE Pt came in for PAP f/u. Data was downloaded and reviewed, a copy of which is at the end of this note. The pt is non-compliant and the AHi is elevated at 5.8. He states non-compliance is due to his CPAP mask. A new nasal mask was ordered for the pt in [facility]. RTC for PAP f/u. Alonso Delgado 01/30/2024 - 04/07/2024 : 1950 Age: 74 years [id number] Compliance Report Compliance Payor [facility] Usage 01/30/2024 - 04/07/2024 Usage days 33/69 days (48%) >= 4 hours 29 days (42%) < 4 hours 4 days (6%) Usage hours 227 hours 25 minutes Average usage (total days) 3 hours 18 minutes Average usage (days used) 6 hours 53 minutes Median usage (days used) 7 hours 22 minutes Total used hours (value since last reset - 04/07/2024) 225 hours [employer] 10 ASV Serial number [id number] Mode ASVAuto Min EPAP 6 cmH2O Max EPAP 15 cmH2O Min PS 4 cmH2O Max PS 10 cmH2O Therapy Leaks - L/min Median: 2.6 95th percentile: 33.6 Maximum: 106.0 Events per hour AI: 1.7 HI: 4.1 AHI: 5.8 Usage - hours Printed on 04/09/2024 - [employer] version 4.45.0-4.0 Page 1 of // MIREYA M YOUNG, MARBLE WORKER REGISTERED RESPIRATORY THERAPIST Signed: 04/09/2024 11:56 MIREYA RAJAN [facility]
--- OUTSIDE RECORDS SUMMARY | 2024-09-07 10:54 | XMS_ITS | Encounter Summary ---
Author Name [facility] [place] Organization [place] Address [address] [place] [address] Care Team Providers Care Casino Floor Walker Name Role Phone DRE ALEX Primary Care [...] PART B Mar 04, 2012 PART B [id number] [phone] ALONSO DELGADO PATIENT MEDICARE (WNR) MEDICARE (M) PART A Mar 04, 2012 PART A [id number] [phone] ALONSO DELGADO PATIENT MEDICARE (WNR) MEDICARE (M) PART A Mar 04, 2012 PART A [id number] [phone] ALONSO DELGADO PATIENT MEDICARE (WNR) MEDICARE (M) PART B Mar 04, 2012 PART B [id number] ALONSO DELGADO PATIENT MEDICARE (WNR) MEDICARE (M) PART A Mar 04, 2012 PART A [id number] ALONSO DELGADO PATIENT MEDICARE (WNR) MEDICARE (M) PART B Mar 04, 2012 PART B [id number] ALONSO DELGADO PATIENT -FO R-LIFE [facility] RE FOR LIFE WNR Aug 31, 2016 FOR LIFE [id number] ALONSO DELGADO PATIENT -FO R-LIFE [facility]ICA RE FOR LIFE WNR Aug 31, 2016 FOR LIFE [id number] [phone] ALONSO DELGADO PATIENT Selected Encounter This section includes the information on record at [place] for the Encounter. Date/Time Encounter Type Encounter Description Reason Pro vider Source Apr 08, 2024 10:31 AM Outpatient Encounter COMMUNITY CARE CONSULT IHE [...] Appointment Type Appointme nt Facility Name Apr 09, 2024 12:00 PM [place] [facility] Apr 18, 2024 01:40 PM [facility] [place] [facility] May 02, 2024 09:41 AM [facility] [place] [facility] May 02, 2024 01:00 PM AMBULATORY - NONE [place] [facility] May 10, 2024 01:30 PM [place] [place] [facility] May 23, 2024 09:00 AM AM[facility]ULATORY - MEDICINE [facility] May 30, 2024 09:00 AM AMBULATORY - MEDICINE [facility] Jun 11, 2024 11:30 AM AMBULATORY - NONE [place] [facility] Jul 04, 2024 08:30 AM AM[place]IC[place] [facility] Lab Results: +/- 30 days of the encounter This section includes the Chemistry and Hematology Lab Results on record with [place] for the patient. Radiology Reports and Pathology Reports are provided separately, in subsequent sections. Lab Results This section contains the Chemistry/Hematology Results that were resulted 30 days before or 30 daysafter the date of the Encounter. Date/Time Source Result Type Result - Unit Interpretation Reference Range Comment May 02, 2024 10:09 AM [facility] HEPATIC FUNCTION PROFILE (PB) Specimen Type: PLASMA No comment entered. Ordering Provider: DARRYL COBURN Report Released Date/Time: May 02, 2024 10:01 AM Reporting Lab: [place] [facility] [address] [place] [address] Performing Lab: [place] [facility] [address] [place] [address] PROTEIN 6.9 g/dL 6-8.6 ALBUMIN 4.2 g/dL 3.4-5 TOTAL BILIRUBIN 0.7 mg/dL 0.2-1.2 ALKALINE PHOSPHATASE 85 U/L 40-150 AST/SGOT 20 U/L 5-34 ALT/SGPT 27 U/L 8-40 CONJ. BILIRUBIN 0.3 mg/dL 0-0.5 May 02, 2024 10:09 AM [facility] MAGNESIUM Specimen Type: PLASMA No comment entered. Ordering Provider: DARRYL COBURN Report Released Date/Time: May 02, 2024 10:01 AM Reporting Lab: [place] [facility] [address] [place] [address] Performing Lab: [place] [facility] [address] [place] [address] MAGNESIUM 1.59 mg/dL L 1.6-2.6 May 02, 2024 10:09 AM [place] [facility] AMYLASE Specimen Type: PLASMA No comment entered. Ordering Provider: DARRYL COBURN Report Released Date/Time: May 02, 2024 10:01 AM Reporting Lab: [place] [facility] [address] [place] [address] Performing Lab: [place] [facility] [address] [place] [address] AMYLASE 47 U/L 25-125 May 02, 2024 10:09 AM [facility] LIPASE Specimen Type: PLASMA No comment entered. Ordering Provider: DARRYL COBURN Report Released Date/Time: May 02, 2024 10:01 AM Reporting Lab: [place] [facility] [address] [place] [address] Performing Lab: [place] [facility] [address] [place] [address] LIPASE <4 U/L L 8-78 May 02, 2024 10:09 AM [place] [facility] BASIC METABOLIC PANEL Specimen Type: PLASMA No comment entered. Ordering Provider: DARRYL COBURN Report Released Date/Time: May 02, 2024 10:01 AM Reporting Lab: [place] [facility] [address] [place] [address] Performing Lab: [place] [facility] [address] [place] [address] CREATININE 4.65 mg/dL H 0.7-1.3 UREA NITROGEN 28 mg/dL H 9-25 GLUCOSE 147 mg/dL H 72-99 SODIUM 140 meq/L 136-145 POTASSIUM 4.2 meq/L 3.5-5 CHLORIDE 96 meq/L L 98-107 CARBON DIOXIDE 32 meq/L H 22-31 CALCIUM 9.3 mg/dL 8.4-10.4 EGFR (CKD-EPI 2020) 12 May 02, 2024 10:09 AM [place] [facility] URIC ACID Specimen Type: PLASMA No comment entered. Ordering Provider: DARRYL COBURN Report Released Date/Time: May 02, 2024 10:01 AM Reporting Lab: [place] [facility] [address] [place] [address] Performing Lab: [place] [facility] [address] [place] [address] URIC ACID 2.6 mg/dL L 3.5-7.2 May 02, 2024 10:09 AM [place] [facility] CBC Specimen Type: BLOOD No comment entered. Ordering Provider: DARRYL COBURN Report Released Date/Time: May 02, 2024 10:01 AM Reporting Lab: [place] [facility] [address] [place] [address] Performing Lab: [place] [facility] [address] [place] [address] WBC 7.2 10*3/uL 3.6-11.2 RBC 3.44 10*6/uL [...] IMMATURE GRANS, AUTO ABS 0.03 10*3/uL 0.00-0.05 Advance Directives: All historical and current Section Date Range: From patient's date of to the date document was created. This section includes ALL of a patient's completed or amended [place] Advance and Rescinded Directives. The entries below indicate that a directive exists for the patient, but an actual copy is not included with this document. The data comes from all [place] facilities. Date Advance Directives Provider Source May 07, 2014 ADVANCE DIRECTIVE JUAN GILLETTE [facility] Radiology Reports: +/- 30 days [...] OR 6 MONTH FOLLOW UP: ALONSO DELGADO [id number] -1950 M Exm Date: MAY 02, 2024@11:47 Req Phys: MONIGABRIELE Badillo Pat Loc: PB-PHONE LUNG SCREEN (Req'g Lo Img Loc: PB-CT IMAGING Service: Unknown LUZ MARIA NE[place] [facility] [place] [address] (Case [id number] COMPLETE) LDCT LCS 1, 3 OR 6 MONTH FOLLOW U(CT Detailed) CPT:74661 Reason for Study: LCS 3 month f/u Clinical History: 01.30.2024 LRADS 4A; 5.5mm left lobe Smoking hx: 1.5ppd x 55 yrs; quit 2020 [place] has dialysis M,W,F. Please schedule for / Report Status: Verified Date Reported: MAY 03, 2024 Date Verified: MAY 03, 2024 Criminal Justice Teacher E-Sig: Report: EXAM: LDCT LCS 1, 3 OR 6 MONTH FOLLOW UP ADDITIONAL HISTORY: N/A COMPARISON: CT chest 01/30/2024, 10/31/2023, 04/13/2020 PROTOCOL: Screening protocol, low dose, non-contrast CT chest was performed at the local [place] facility in accordance with Lung-Rads 2. Additional coronal and sagittal reconstructions. MIP reconstructions were reviewed. 2181 images were received by the [place] National [...] up to 3 mm (LUNG-RADS 2 per 2021 criteria). RECOMMENDATION: [address] follow-up, if patient meets screening criteria. LUNG-RADS MODIFIER: S: Findings unrelated to lung cancer. Consolidation in the left lower lobe adjacent to pleural thickening/effusion with associated parenchymal bands and volume loss is also not significantly changed compared with October 2023, favored to reflect atelectasis. READING PHYSICIAN: Luz Maria Alan M.D. -[phone] 05/03/2024 12:31 EDT [facility] National Teleradiology Program [phone] (For Medical Practitioner Use Only) Attention Patients / Veterans: If you have questions or concerns about these test results, please contact your ordering provider or primary care team. Primary Interpreting Staff: RADIOLOGY,OUTSIDE SERVICE, Staff Physician / RADIOLOGY,OUTSIDE SERVICE RICARDO MARQUEZ [facility] May 02, 2024 10:08 AM OBSTRUCTIVE SERIES : ALONSO DELGADO [id number] -1950 M Exm Date: MAY 02, 2024@10:08 Req Phys: DARRYL COBURN Loc: PB-CARLYN WALTON (Req'g Loc) [facility] [place], [place] Loc: PB-RADIOLOGY Service: Unknown LUZ MARIA [facility] [facility] [place] [address] (Case [id number] COMPLETE) OBSTRUCTIVE SERIES (RAD Detailed) CPT:72411 Reason for Study: nausea, constipation for 6 weeks Clinical History: nausea, constipation for 6 weeks Report Status: Verified Date Reported: MAY 02, 2024 Date Verified: MAY 02, 2024 Criminal Justice Teacher E-Sig:/ES/RONI MCKEON Report: Obstructive series Chest reveals [...] calcification Primary Interpreting Staff: RONI MCKEON, RADIOLOGIST (Criminal Justice Teacher) /RONI Hi [facility] Encounter Notes: All associated encounter notes This section contains the clinical notes associated to the Encounter. Date/Time Encounter Note(s) Provider Source Apr 08, 2024 10:31 AM LETTERS: LOCAL TITLE: COMMUNITY CARE-REFERRAL PB (AUTO-PRINT) STANDARD TITLE: LETTERS DATE OF NOTE: APR 08, 2024@10:31:16 ENTRY DATE: APR 08, 2024@10:31:16 AUTHOR: ARIELLE CHAPIN COSIGNER: URGENCY: STATUS: COMPLETED Alonso Delgado [address] [place], [place] [address] Dear ALONSO DELGADO, Your [place] provider has referred you to a provider within the community for care. Your medical care for pulmonary has been authorized with the Community Care Provider listed below. DO NOT REPORT TO THE [facility] Provider info: You Okeefe NP An appointment has been scheduled for you on: Apr 18, 2024 01:40 PM Office Name: [facility] Address: [address], [address] Address: Phone Number: P- [phone] or [phone] Referral Number: [id number] Referral Issue Date: 2024-03-12 Expiration Date: 2024-10-15 If you are unable to keep this appointment or the appointment is no longer needed, please contact the community provider above for notification/rescheduling and then call the [facility] at [phone]. If you need additional care/services not mentioned [...] medication. In-network locations can be found at https://www.va.gov/find-lo cations/ Medical Devices: Your community provider may recommend [...] 72hr or ER visit and/or admission by [phone]. Thank you for the opportunity to serve you and for your service to our great nation! Luz Maria Archerhing [facility] Care in the Community [address] [facility] [place] [address] ARIELLE CHAPIN [facility]
--- OUTSIDE RECORDS SUMMARY | 2024-09-07 10:54 | XMS_ITS ---
Author Name [facility] [place] Address [address] [place] [address] Care Team Providers Care Semiconductor Package Symbol Stamper Name Role Phone DRE ALEX Primary Care [...] Policy Rose's Name Patient's Relationship to Policy Orse MEDICARE (WNR) MEDICARE (M) PART B Mar 04, 2012 PART B [id number] [phone] LEONARD LEWIS PATIENT MEDICARE (WNR) MEDICARE (M) PART A Mar 04, 2012 PART A [id number] [phone] LEONARD LEWIS PATIENT MEDICARE (WNR) MEDICARE (M) PART A Mar 04, 2012 PART A [id number] [phone] LEONARD LEWIS PATIENT MEDICARE (WNR) MEDICARE (M) PART B Mar 04, 2012 PART B [id number] LEONARD LEWIS PATIENT MEDICARE (WNR) MEDICARE (M) PART A Mar 04, 2012 PART A [id number] LEONARD LEWIS PATIENT MEDICARE (WNR) MEDICARE (M) PART B Mar 04, 2012 PART B [id number] [phone] LEONARD LEWIS PATIENT -FO R-LIFE TRICA RE FOR LIFE WNR Aug 31, 2016 FOR LIFE [id number] LEONARD LEWIS PATIENT -FO R-LIFE TRICA RE FOR LIFE WNR Aug 31, 2016 FOR LIFE [id number] [phone] LEONARD LEWIS PATIENT Selected Encounter This section includes the information on record at [place] for the Encounter. Date/Time Encounter Type Encounter Description Reason Pro vider Source Apr 08, 2024 10:22 AM Outpatient Encounter ADMIN PAT ACTIVTIES (MASNONCT) [...] PM AMBULATORY - [place] [facility] Apr 18, 2024 01:40 PM AM[facility]ORY - [place] [facility] May 02, 2024 09:41 AM AMBULATORY - [place]IC[place] [facility] May 02, 2024 01:00 PM AMBULATORY - NONE [place] [facility] May 10, 2024 01:30 PM AMB[place]ATORY - [place]IC[place] [facility] May 23, 2024 09:00 AM AMBULATORY - MEDICINE [facility] May 30, 2024 09:00 AM AMBULATORY - MEDICINE [facility] Jun 11, 2024 11:30 AM AMBULATORY - NONE [place] [facility] Jul 04, 2024 08:30 AM AMBULATORY - [place]IC[place] [facility] Lab Results: +/- 30 days of the encounter This section includes the Chemistry and Hematology Lab Results on record with [place] for the patient. Radiology Reports and Pathology Reports are provided separately, in subsequent sections. Lab Results This section contains the Chemistry/Hematology Results that were resulted 30 days before or 30 daysafter the date of the Encounter. Date/Time Source Result Type Result - Unit Interpretation Reference Range Comment May 02, 2024 10:09 AM [facility] MAGNESIUM Specimen Type: PLASMA No comment entered. Ordering Provider: DARRYL COBURN Report Released Date/Time: May 02, 2024 10:01 AM Reporting Lab: [place] [facility] [address] [place] [address] Performing Lab: [place] [facility] [address] [place] [address] MAGNESIUM 1.59 mg/dL L 1.6-2.6 May 02, 2024 10:09 AM [facility] HEPATIC FUNCTION PROFILE (PB) Specimen Type: PLASMA No comment entered. Ordering Provider: DARRYL COBURN Report Released Date/Time: May 02, 2024 10:01 AM Reporting Lab: [place] [facility] [address] [place] [address] Performing Lab: [place] [facility] [address] [place] [address] PROTEIN 6.9 g/dL 6-8.6 ALBUMIN 4.2 g/dL 3.4-5 TOTAL BILIRUBIN 0.7 mg/dL 0.2-1.2 ALKALINE PHOSPHATASE 85 U/L 40-150 AST/SGOT 20 U/L 5-34 ALT/SGPT 27 U/L 8-40 CONJ. BILIRUBIN 0.3 mg/dL 0-0.5 May 02, 2024 10:09 AM [facility] LIPASE Specimen Type: PLASMA No comment entered. Ordering Provider: DARRYL COBURN Report Released Date/Time: May 02, 2024 10:01 AM Reporting Lab: [place] [facility] [address] [place] [address] Performing Lab: [place] [facility] [address] [place] [address] LIPASE <4 U/L L 8-78 May 02, 2024 10:09 AM [place] [facility] AMYLASE Specimen Type: PLASMA No comment entered. Ordering Provider: DARRYL COBURN Report Released Date/Time: May 02, 2024 10:01 AM Reporting Lab: [place] [facility] [address] [place] [address] Performing Lab: [place] [facility] [address] [place] [address] AMYLASE 47 U/L 25-125 May 02, 2024 10:09 AM [place] [facility] BASIC METABOLIC PANEL Specimen Type: PLASMA No comment entered. Ordering Provider: DARRYL COBURN Report Released Date/Time: May 02, 2024 10:01 AM Reporting Lab: [place] [facility] [address] [place] [address] Performing Lab: [place] [facility] [address] [place] [address] CREATININE 4.65 mg/dL H 0.7-1.3 UREA NITROGEN 28 mg/dL H 9-25 GLUCOSE 147 mg/dL H 72-99 SODIUM 140 meq/L 136-145 POTASSIUM 4.2 meq/L 3.5-5 CHLORIDE 96 meq/L L 98-107 CARBON DIOXIDE 32 meq/L H 22-31 CALCIUM 9.3 mg/dL 8.4-10.4 EGFR (CKD-EPI 2020) 12 May 02, 2024 10:09 AM [place] [facility] Specimen Type: PLASMA No comment entered. Ordering Provider: DARRYL COBURN Report Released Date/Time: May 02, 2024 10:01 AM Reporting Lab: [place] [facility] [address] [place] [address] Performing Lab: [place] [facility] [address] [place] [address] URIC ACID 2.6 mg/dL L 3.5-7.2 May 02, 2024 10:09 AM [place] [facility] CBC Specimen Type: BLOOD No comment entered. Ordering Provider: DARRYL COBURN Report Released Date/Time: May 02, 2024 10:01 AM Reporting Lab: [place] [facility] [address] [place] [address] Performing Lab: [place] [facility] [address] [address] WBC 7.2 10*3/uL 3.6-11.2 RBC 3.44 10*6/uL [...] May 07, 2014 ADVANCE DIRECTIVE JUAN GILLETTE [facility] Radiology Reports: +/- 30 days [...] OR 6 MONTH FOLLOW UP: LEONARD LEWIS [id number] -1950 M Exm Date: MAY 02, 2024@11:47 Req Phys: GABRIELE WARREN Pat Loc: PB-PHONE LUNG SCREEN (Req'g Lo Img Loc: PB-CT IMAGING Service: Unknown LUZ MARIA [place] [facility] [place]AR [place] [address] (Case [id number] COMPLETE) LDCT LCS 1, 3 OR 6 MONTH FOLLOW U(CT Detailed) CPT:38222 Reason for Study: LCS 3 month f/u Clinical History: 01.30.2024 LRADS 4A; 5.5mm left lobe Smoking hx: 1.5ppd x 55 yrs; quit 2020 [place] has dialysis M,W,F. Please schedule for / Report Status: Verified Date Reported: MAY 03, 2024 Date Verified: MAY 03, 2024 Prepress Technician E-Sig: Report: EXAM: LDCT LCS 1, 3 OR 6 MONTH FOLLOW UP ADDITIONAL HISTORY: N/A COMPARISON: CT chest 01/30/2024, 10/31/2023, 04/13/2020 PROTOCOL: Screening protocol, low dose, non-contrast CT chest was performed at the local [place] facility in accordance with Lung-Rads 2. Additional coronal and sagittal reconstructions. MIP reconstructions were reviewed. 2181 images were received by the [place] National Teleradiology Program (NTP) for interpretation. RADIATION [...] atelectasis. READING PHYSICIAN: Luz Maria Alan M.D. -[phone] 05/03/2024 12:31 EDT [facility] National Teleradiology Program [phone] (For Medical Practitioner Use Only) Attention Patients / Veterans: If you have questions or concerns about these test results, please contact your ordering provider or primary care team. Primary Interpreting Staff: RADIOLOGY,OUTSIDE SERVICE, Staff Physician / RADIOLOGY,OUTSIDE SERVICE RICARDO MARQUEZ [facility] May 02, 2024 10:08 AM OBSTRUCTIVE SERIES : LEWISLEONARD FIGUEROA [id number] -1950 M Exm Date: MAY 02, 2024@10:08 Req Phys: DARRYL COBURN Loc: PB-CARLYN WALTON (Req'g Loc) Img Loc: PB-RADIOLOGY Service: Unknown LUZ MARIA [place] [facility] [place] [address] (Case [id number] COMPLETE) OBSTRUCTIVE SERIES (RAD Detailed) CPT:21769 Reason for Study: nausea, constipation for 6 weeks Clinical History: nausea, constipation for 6 weeks Report Status: Verified Date Reported: MAY 02, 2024 Date Verified: MAY 02, 2024 Prepress Technician E-Sig:/ES/RONI MCKEON Report: Obstructive series Chest reveals [...] calcification Primary Interpreting Staff: RONI MCKEON, RADIOLOGIST (Prepress Technician) /RONI Hi [facility] Encounter Notes: All associated encounter notes This section contains the clinical notes associated to the Encounter. Date/Time Encounter Note(s) Provider Source Apr 08, 2024 10:22 AM ADMINISTRATIVE NOT E: LOCAL TITLE: ADMINISTRATIVE NOTE PB STANDARD TITLE: ADMINISTRATIVE NOTE DATE OF NOTE: APR 08, 2024@10:22 ENTRY DATE: APR 08, 2024@10:22:26 AUTHOR: APARNA BAZAN EXP COSIGNER: URGENCY: STATUS: COMPLETED Attempted to contact to confirm PB-SLEEP MED CPAP appointment for tomorrow. Left voicemail on listed number /[email or web address]/ PARRISH MONAE [facility] Signed: 04/08/2024 10:22 APARNA BAZAN [facility]
--- OUTSIDE RECORDS SUMMARY | 2024-09-07 10:54 | XMS_ITS ---
Author Name [facility] [place] [facility] [place] [facility] [place] Address [address] [place] [address] Care Team Providers Care Senior Biostatistician Name Role Phone DRE ALEX Primary Care [...] PART B Mar 04, 2012 PART B [id number] [facility] [phone] ALONSO DELGADO PATIENT MEDICARE (WNR) MEDICARE (M) PART A Mar 04, 2012 PART A [id number] [facility] ALONSO DELGADO PATIENT MEDICARE (WNR) MEDICARE (M) PART B Mar 04, 2012 PART B [id number] ALONSO DELGADO PATIENT MEDICARE (WNR) MEDICARE (M) PART A Mar 04, 2012 PART A [id number] [facility] ALONSO DELGADO PATIENT MEDICARE (WNR) MEDICARE (M) PART B Mar 04, 2012 PART B [id number] [phone] ALONSO DELGADO PATIENT MEDICARE (WNR) MEDICARE (M) PART A Mar 04, 2012 PART A [id number] [phone] ALONSO DELGADO PATIENT -FO R-LIFE [facility] FOR LIFE WNR Aug 31, 2016 FOR LIFE [id number] [phone] ALONSO DELGADO PATIENT -FO R-LIFE [facility] RE FOR LIFE WNR Aug 31, 2016 FOR LIFE [id number] [phone] ALONSO DELGADO PATIENT Selected Encounter This section includes the information on record at [place] for the Encounter. Date/Time Encounter Type Encounter Description Reason Provider Source Mar 05, 2024 12:00 PM OFF/OP EST JANUARY X REQ PHY/QHP SLEEP MEDICINE ICD-10-CM G47.33 Obstructive sleep apnea (adult) (pediatric) MIREYA RAJAN [facility] Encounter Template Text not used by [place] Assessments - Encounter Diagnoses This section includes the primary and secondary diagnoses documented for the Encounter. Date/Time Primary/Secondary Diagnosis Diagnosis Name Provider Source Mar 05, 2024 01:07 PM PRIMARY Obstructive sleep apnea (adult) (pediatric) MIREYA RAJAN [facility] Plan of Treatment: Future Appointments (+ 6 months) and Future Tests (+/- 45 days) The Plan of Treatment section includes future care activities for the patient from all [place] treatmentfacilities. This section includes future appointments and future orders which are active, pending or scheduled. Future Appointments This section includes appointments that were scheduled to occur 6 months from the date of the Encounter, up to a maximum of 20 appointments. The data comes from all [place] treatment facilities. Appointment Date/Time Appointment Type Appointme nt Facility Name Mar 12, 2024 03:30 PM AMBULATORY - MEDICINE [facility] Mar 12, 2024 03:31 PM AMBULATORY - MEDICINE [facility] Mar 14, 2024 08:30 AM AMBULATORY - MEDICINE [place] [facility] Apr 09, 2024 12:00 PM AMBULATORY - MEDICINE [place] [facility] Apr 18, 2024 01:40 PM AMBUL[facility]ORY - MEDICINE [place] [facility] May 02, 2024 09:41 AM [facility] [place] [facility] May 02, 2024 01:00 PM AMBULATORY - NONE [place] [facility] May 10, 2024 01:30 PM [facility] [place]IC[place] [facility] May 23, 2024 09:00 AM [facility] [place]IC[place] [facility] May 30, 2024 09:00 AM AMBULATORY - MEDICINE [facility] Jun 11, 2024 11:30 AM AMBULATORY - NONE [place] [facility] Jul 04, 2024 08:30 AM AMBULATORY - MEDICINE [place] [facility] Lab Results: +/- 30 days of the encounter This section includes the Chemistry and Hematology Lab Results on record with [place] for the patient. Radiology Reports and Pathology Reports are provided separately, in subsequent sections. Lab Results This section contains the Chemistry/Hematology Results that were resulted 30 days before or 30 daysafter the date of the Encounter. Date/Time Source Result Type Result - Unit Interpretation Reference Range Comment Feb 22, 2024 08:14 AM [facility] HGA1C Specimen Type: BLOOD No comment entered. Ordering Provider: DRE ALEX Report Released Date/Time: Feb 22, 2024 08:13 AM Reporting Lab: [place] [facility] [address] [place] [id number] Performing Lab: [place] [facility] [address] [place] [id number] HGA1C 5.8 4.0-6.0 Feb 22, 2024 08:14 AM [facility] CHOLESTEROL PANEL (PB) Specimen Type: PLASMA No comment entered. Ordering Provider: DRE ALEX Report Released Date/Time: Feb 22, 2024 08:13 AM Reporting Lab: [place] [facility] [address] [place] [address] Performing Lab: [place] [facility] [address] [place] [address] CHOLESTEROL 86 mg/dL 0-200 TRIGLYCERIDE 71 mg/dL 0-150 CALCULATED LDL 30.8 mg/dL HDL(New) 41.0 mg/dL H >40 HDL % OF TOTAL CHOLESTEROL (PB) 47.7 >25 Feb 22, 2024 08:14 AM [facility] COMPREHENSIVE METABOLIC PANEL Specimen Type: PLASMA No comment entered. Ordering Provider: DRE ALEX Report Released Date/Time: Feb 22, 2024 08:13 AM Reporting Lab: [facility] [address] [place] [address] Performing Lab: [facility] [address] [place] [address] CREATININE 5.13 mg/dL H 0.7-1.3 UREA NITROGEN [...] and tobacco- related health factors from the [place] facility where the Encounter took place. Current Smoking Status This section includes the most current smoking, or tobacco-related health factor, from the [place] facility where the Encounter took place. Date/Time Current Smoking Status Comment Facil ity Jun 15, 2011 02:49 PM TOBACCO OFFERED PT MEDS (PROVIDE R) [facility] Tobacco Use History This section includes a history of the smoking, or tobacco-related health factors, that were collected on or before the date of the Encounter. The data comes from the [place] facility where the Encounter took place. Date/Time Smoking Status/Tobacco Use Comment F acility Jun 15, 2011 02:49 PM TOBACCO OFFERED PT MEDS (PROVIDE R) [facility] Jun 15, 2011 02:[address] OP SMOKING CLINIC [facility] Advance Directives: All historical and current Section Date Range: From patient's date of to the date document was created. This section includes ALL of a patient's completed or amended [place] Advance and Rescinded Directives. The entries below indicate that a directive exists for the patient, but an actual copy is not included with this document. The data comes from all [place] facilities. Date Advance Directives Provider Source May 07, 2014 ADVANCE DIRECTIVE JUAN GILLETTE [facility] Encounter Notes: All associated encounter notes This section contains the clinical notes associated to the Encounter. Date/Time Encounter Note(s) Provider Source Mar 05, 2024 07:28 AM SLEEP MEDICINE NOT E: LOCAL TITLE: CPAP CLINIC NOTE STANDARD TITLE: SLEEP MEDICINE NOTE DATE OF NOTE: MAR 05, 2024@07:28 ENTRY DATE: MAR 05, 2024@07:28:19 AUTHOR: MIREYA RAJAN COSIGNER: URGENCY: STATUS: COMPLETED DIAG:DANELLE Pt came in for PAP f/u. While the pt is non-compliant, therapy is reducing the AHI to 3.2 when used. The pt is having difficulty with his CPAP mask. The mask was fitted to the pt and I had the pt put on and take off his CPAP mask several times during this visit. He was alos given a SHEKHAR nasal mask and chin strap. RTC for PAP f/u. Alonso Delgado 01/30/2024 - 03/03/2024 : 1950 Age: 73 years [id number] Compliance Report Compliance Payor [place] [facility] Usage 01/30/2024 - 03/03/2024 Usage days 8/34 days (24%) >= 4 hours 7 days (21%) < 4 hours 1 days (3%) Usage hours 46 hours 58 minutes Average usage (total days) 1 hours 23 minutes Average usage (days used) 5 hours 52 minutes Median usage (days used) 5 hours 4 minutes Total used hours (value since last reset - 03/03/2024) 46 hours [employer] 10 ASV Serial number [id number] Mode ASVAuto Min EPAP 6 cmH2O Max EPAP 15 cmH2O Min PS 4 cmH2O Max PS 10 cmH2O Therapy Leaks - L/min Median: 6.9 95th percentile: 47.6 Maximum: 118.1 Events per hour AI: 0.2 HI: 3.0 AHI: 3.2 Usage - hours Printed on 03/05/2024 - [employer] version 4.44.0-5.0 Page 1 of 1 /es/ MIREYA RAJAN MEMBERSHIP COUNSELOR REGISTERED RESPIRATORY THERAPIST Signed: 03/05/2024 13:08 MIREYA RAJAN [facility]
--- OUTSIDE RECORDS SUMMARY | 2024-09-07 10:54 | XMS_ITS | Encounter Summary ---
Author Name [facility] [place] [facility] [place] [facility] [place] Address [address] [place] [address] Care Team Providers Care Second Chef Name Role Phone DRE ALEX Primary Care [...] PART A Mar 04, 2012 PART A [id number] [phone] LEONARD LEWIS PATIENT MEDICARE (WNR) MEDICARE (M) PART B Mar 04, 2012 PART B [id number] LEONARD LEWIS PATIENT MEDICARE (WNR) MEDICARE (M) PART A Mar 04, 2012 PART A [id number] LEONARD LEWIS PATIENT MEDICARE (WNR) MEDICARE (M) PART A Mar 04, 2012 PART A [id number] [id number] LEONARD LEWIS PATIENT MEDICARE (WNR) MEDICARE (M) PART B Mar 04, 2012 PART B [id number] [phone] LEONARD LEWIS PATIENT MEDICARE (WNR) MEDICARE (M) PART B Mar 04, 2012 PART B [id number] [phone] LEONARD LEWIS PATIENT -FO R-LIFE [place] RE FOR LIFE WNR Aug 31, 2016 FOR LIFE [id number] [phone] LEONARD LEWIS PATIENT -FO R-LIFE [place] RE FOR LIFE WNR Aug 31, 2016 FOR LIFE [id number] LEONARD LEWIS PATIENT Selected Encounter This section includes the information on record at [place] for the Encounter. Date/Time Encounter Type Encounter Description Reason Provider Source Mar 12, 2024 03:30 PM OFFICE O/P EST LOW 20 MIN PRIMARY CARE/MEDICINE ICD-10-CM E11.40 Type 2 diabetes mellitus with diabetic neuropathy, DRE Colon Encounter Template Text not used by [place] Assessments - Encounter Diagnoses This section includes the primary and secondary diagnoses documented for the Encounter. Date/Time Primary/Secondary Diagnosis Diagnosis Name Provider Source Mar 12, 2024 04:39 PM PRIMARY Type 2 diabetes mellitus with diabetic neuropathy, DRE Colon [facility] Mar 12, 2024 04:39 PM SECONDARY Anemia, unspecified DRE ALEX [facility] Mar 12, 2024 04:39 PM SECONDARY Hemoptysis DRE ALEX [facility] Mar 12, 2024 04:39 PM SECONDARY Hypoglycemia, unspecified DRE ALEX [facility] Plan of Treatment: Future Appointments (+ [...] Appointment Type Appointme nt Facility Name Mar 14, 2024 08:30 AM AMBULATORY - MEDICINE [place] [facility] Apr 09, 2024 12:00 PM [place] [place] [facility] Apr 18, 2024 01:40 PM AMBULATORY - [place]IC[place] [facility] May 02, 2024 09:41 AM AMBULATORY - [place]IC[place] [facility] May 02, 2024 01:00 PM AMBULATORY - NONE [place] [facility] May 10, 2024 01:30 PM AMBULATORY - [place]IC[place] [facility] May 23, 2024 09:00 AM AMBULATORY - MEDICINE [facility] May 30, 2024 09:00 AM AMBULATORY - MEDICINE [facility] Jun 11, 2024 11:30 AM AMBULATORY - NONE [place] [facility] Jul 04, 2024 08:30 AM AMBULATORY - MEDIC[place] [facility] Lab Results: +/- 30 days [...] Range Comment Feb 22, 2024 08:14 AM [facility] HGA1C Specimen Type: BLOOD No comment entered. Ordering Provider: DRE ALEX Report Released Date/Time: Feb 22, 2024 08:13 AM Reporting Lab: [place] [facility] [address] [place] [address] Performing Lab: [place] [facility] [address] [place] [address] HGA1C 5.8 4.0-6.0 Feb 22, 2024 08:14 AM [facility] CHOLESTEROL PANEL (PB) Specimen Type: PLASMA No comment entered. Ordering Provider: DRE ALEX Report Released Date/Time: Feb 22, 2024 08:13 AM Reporting Lab: [place] [facility] [address] [place] [address] Performing Lab: [place] [facility] [address] [place] [address] CHOLESTEROL 86 mg/dL 0-200 TRIGLYCERIDE 71 mg/dL 0-150 CALCULATED LDL 30.8 mg/dL HDL(New) 41.0 mg/dL H >40 HDL % OF TOTAL CHOLESTEROL (PB) 47.7 >25 Feb 22, 2024 08:14 AM [facility] COMPREHENSIVE METABOLIC PANEL Specimen Type: PLASMA No comment entered. Ordering Provider: DRE ALEX Report Released Date/Time: Feb 22, 2024 08:13 AM Reporting Lab: [place] [facility] [address] [place] [address] Performing Lab: [place] [facility] [address] [place] [address] CREATININE 5.13 mg/dL H 0.7-1.3 UREA NITROGEN [...] and tobacco- related health factors from the [place] facility where the Encounter took place. Current Smoking Status This section includes the most current smoking, or tobacco-related health factor, from the [place] facility where the Encounter took place. Date/Time Current Smoking Status Comment Bobbi dobson Apr 26, 2023 02:30 PM VA-TOBACCO FORMER USER [facility] Tobacco Use History This section includes a history of the smoking, or tobacco-related health factors, that were collected on or before the date of the Encounter. The data comes from the [place] facility where the Encounter took place. Date/Time Smoking Status/Tobac co Use Comment Facility Apr 26, 2023 02:30 PM VA-TOBACCO QUIT 1 TO < 5 YRS [facility] May 26, 2022 09:00 AM VA-TOBACCO FORMER USER [facility] May 26, 2022 09:00 AM VA-TOBACCO QUIT 1 TO < 5 YRS [facility] May 06, 2021 10:30 AM VA-TOBACCO USE 30 YEARS OR MORE [facility] May 06, 2021 10:30 AM VA-TOBACCO USE ADVICE [facility] May 06, 2021 10:30 AM VA-TOBACCO USE CHEMISTRY TUTOR NO [facility] May 06, 2021 10:30 AM VA-TOBACCO USE MED NO [facility] May 06, 2021 10:30 AM VA-TOBACCO USE WI 30 MIN OF WAKEUP [facility] May 06, 2021 10:30 AM VA-TOBACCO USER EVERY DAY [facility] Oct 22, 2019 10:03 AM VA-TOBACCO USE 30 YEARS OR MORE [facility] Oct 22, 2019 10:03 AM VA-TOBACCO USE ADVICE [facility] Oct 22, 2019 10:03 AM VA-TOBACCO USE CHEMISTRY TUTOR NO [facility] Oct 22, 2019 10:03 AM VA-TOBACCO USE MED NO [facility] Oct 22, 2019 10:03 AM VA-TOBACCO USE WI 30 MIN OF WAKEUP [facility] Oct 22, 2019 10:03 AM VA-TOBACCO USER EVERY DAY [facility] Apr 18, 2019 10:01 AM CURRENT NON-TOBACC O USER-HX OF USE [facility] Apr 18, 2019 10:01 AM CURRENT TOBACCO USER [facility] Apr 18, 2019 10:01 AM VA-TOBACCO USE 30 YEARS OR MORE [facility] Apr 18, 2019 10:01 AM VA-TOBACCO USE ADVICE [facility] Apr 18, 2019 10:01 AM VA-TOBACCO USE CHEMISTRY TUTOR NO [facility] Apr 18, 2019 10:01 AM VA-TOBACCO USE MED NO [facility] Apr 18, 2019 10:01 AM VA-TOBACCO USE WI 30 MIN OF WAKEUP [facility] Apr 18, 2019 10:01 AM VA-TOBACCO USER EVERY DAY [facility] Mar 18, 2019 10:21 AM CURRENT TOBACCO USER [facility] Sep 18, 2018 09:56 AM CURRENT NON-TOBACC O USER-HX OF USE [facility] Jun 19, 2018 10:55 AM CURRENT TOBACCO USER [facility] Jun 19, 2018 10:55 AM CURRENT TOBACCO US ER (NOT READY TO QUIT) [facility] Jun 19, 2018 10:55 AM TOBACCO CESSATION REFERRAL DECLINED [facility] Jun 19, 2018 10:55 AM TOBACCO MEDS OFFER ED BUT DECLINED [facility] Jun 19, 2018 10:55 AM TOBACCO USER OFFERED MEDS [facility] Mar 13, 2018 11:20 AM CURRENT TOBACCO USER [facility] Mar 13, 2018 11:20 AM CURRENT TOBACCO US ER (NOT READY TO QUIT) [facility] Mar 13, 2018 11:20 AM TOBACCO CESSATION REFERRAL DECLINED [facility] Mar 13, 2018 11:20 AM TOBACCO MEDS OFFER ED BUT DECLINED [facility] Mar 13, 2018 11:20 AM TOBACCO USER OFFERED MEDS [facility] Oct 04, 2017 [...] 2017 02:34 PM TOBACCO USER OFFERED MEDS [facility] Oct 02, 2015 11:06 AM QUIT TOBACCO >7 YEARS AGO [facility] Sep 08, 2014 09:56 AM CURRENT TOBACCO USER [facility] Sep 08, 2014 09:[address] [facility]MO[facility] Aug 21, 2013 08:15 AM CURRENT TOBACCO USER [facility] Aug 21, 2013 08:[address] [facility]MO[facility] January 23, 2012 02:12 PM CURRENT TOBACCO USER [facility] January 23, 2012 02:12 PM TOBACCO MEDS OFFER ED BUT DECLINED [facility] January 23, 2012 02:12 PM TOBACCO OFFERED PT MEDS (PROVIDER) [facility] January 23, 2012 02:[address] [facility]MO[facility] Jul 27, 2011 08:46 AM TOBACCO MEDS OFFER ED BUT DECLINED [facility] Jul 27, 2011 08:46 AM TOBACCO OFFERED PT MEDS (PROVIDER) [facility] Jul 27, 2011 08:[address] OP SMOKING CLINIC [facility] May 20, 2011 11:24 AM TOBACCO MEDS OFFER ED BUT DECLINED [facility] May 20, 2011 11:24 AM TOBACCO OFFERED PT MEDS (PROVIDER) [facility] May 20, 2011 11:[address] OP SMOKING CLINIC [facility] January 17, 2011 08:35 AM CURRENT TOBACCO USER [facility] January 17, 2011 08:[address] OP SMOKING CLINIC [facility] Jul 12, 2010 01:47 PM TOB INFO ON NON-VA STOP SMOKING CLINIC will start smoking cessation classes 2010 [facility] Jul 12, 2010 01:47 PM TOBACCO MEDS OFFER ED BUT DECLINED [facility] Jul 12, 2010 01:47 PM TOBACCO OFFERED PT MEDS (PROVIDER) declined [facility] Jul 12, 2010 01:[address] [facility]MOKING CLINIC will start smoking cessation classes, Sep 08, 2010 [facility] Dec 09, 2009 02:09 PM CURRENT TOBACCO USER [facility] Dec 09, 2009 02:09 PM TOBACCO OFFERED PT MEDS (PROVIDER) [facility] Dec 09, 2009 02:[address] OP SMOKING CLINIC [facility] Dec 09, 2009 02:09 PM TOBACCO OFFERRED P T MEDS (PROVIDER) [facility] Advance Directives: All historical and current [...] May 07, 2014 ADVANCE DIRECTIVE JUAN GILLETTE [facility] Encounter Notes: All associated encounter notes This section contains the clinical notes associated to the Encounter. Date/Time Encounter Note(s) Provider Source Mar 12, 2024 04:05 PM PRIMARY CARE PROGR ESS NOTE: LOCAL TITLE: PRIMARY CARE CLINIC PROGRESS NOTE PB STANDARD TITLE: PRIMARY CARE PROGRESS NOTE DATE OF NOTE: MAR 12, 2024@16:05 ENTRY DATE: MAR 12, 2024@16:06:02 AUTHOR: KUZAS,DRE R EXP COSIGNER: URGENCY: STATUS: COMPLETED [place] is presenting to the clinic today for his/her Telehealth appointment as scheduled. [place] was assured that the Telehealth visit is a private, confidential clinical encounter and will not be recorded. The Telehealth process, procedures and expectations were explained to the patient, allowing [place] time to voice any concerns. voiced understanding and consented to the Clinic visit. The visit proceeded without difficulty. DATE & TIME:Mar@16:06 CHIEF COMPLAINT: acute visit for gi emesis blood HISTORY OF PRESENT ILLNESS: counts are stbale it was read he was on my call and it was not black or for 1 little spot in the phlegm one watchman procedure monday cabg 3 vessel pacmaker placed dailysisi si still 3 times week PAST MEDICAL HISTORY: 1) DM - Diabetes mellitus (SNOMED CT 00726844) 2) Hearing Loss, Sensorineural, Combined Types 3) Tinnitus, NOS 4) Leg Pain 5) Hyperlipidemia (SNOMED CT 12125295) 6) Chronic obstructive airway disease (SNOMED CT 65354758) 7) Pain in Joint, site unspecified (ICD-9-CM 719.40) 8) Gout (SNOMED CT 10024068) 9) Acute prostatitis (SNOMED CT 88840112) 10) Renal mass (SNOMED CT 828527160) 11) Pancreatitis (SNOMED CT 89153301) 12) Biliary calculus (SNOMED CT 997719074) 13) Primary malignant neoplasm of kidney (SNOMED CT 70011235) 14) Malignant tumor of urinary bladder (SNOMED CT 845522028) 15) H/O: TIA (SNOMED CT 416234482) 16) Dizziness 17) Essential hypertension (SNOMED CT 48938285) 18) Chronic pancreatitis 19) 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 heart failure 20) History of partial nephrectomy 21) History of appendectomy 22) History of cholecystectomy 23) Multiple acquired kidney cysts 24) Dependence on renal dialysis 25) Peripheral vascular disease 26) Elderly fall 27) CAD - Coronary Artery Disease (SCT 98019341) 28) H/O: Stroke (SCT 649900872) 29) ldct sc rng 30) elevated ferritin 31) Cardiac defibrillator in situ 32) Hemorrhagic cystitis 33) Aortic aneurysm screening normal 34) Urinary tract infectious disease 35) disabilty plates 36) Anemia 37) Exposure to potentially hazardous substance 38) Hypoglycemia 39) Mood disorder with depressive features due to general medical condition 40) s/p left adrenectomy 41) pleural thickening of the bronchi SOCIAL HISTORY: Tobacco: Alcohol: Other: FAMILY HISTORY: Allergies: Patient has answered NKA MEDIACTIONS: Active [...] RINSE MOUTHPIECE FREQUENTLY TO PREVENT CLOGGING. 4) ALLOPURINOL 100MG TAB TAKE TWO TABLETS BY MOUTH ONCE ACTIVE A DAY FOR GOUT TAKE WITH PLENTY OF WATER. 5) ASCORBIC ACID 500MG TAB TAKE TWO TABLETS BY MOUTH ACTIVE ONCE A DAY FOR VITAMIN SUPPLEMENTATION. 6) ASPIRIN 81MG EC TAB TAKE ONE TABLET BY MOUTH ONCE A ACTIVE DAY FOR HEART OR CIRCULATION. TAKE WITH FOOD. 7) ATORVASTATIN CALCIUM 80MG TAB TAKE ONE-HALF TABLET BY ACTIVE MOUTH EVERY EVENING FOR HIGH CHOLESTEROL 8) BUPROPION HCL 300MG 24HR SA TAB TAKE ONE TABLET BY ACTIVE MOUTH ONCE A DAY FOR DEPRESSION SWALLOW WHOLE - DO NOT CRUSH OR CHEW. 9) CARVEDILOL 25MG TAB TAKE ONE-HALF TABLET BY MOUTH ACTIVE TWICE A DAY FOR HIGH BLOOD PRESSURE TAKE WITH FOOD. 10) CHOLECALCIF 50MCG (D3-2,000UNIT) TAB TAKE ONE TABLET ACTIVE BY MOUTH ONCE A DAY FOR VITAMIN D SUPPLEMENTATION 11) CLOPIDOGREL BISULFATE 75MG TAB TAKE ONE TABLET BY ACTIVE MOUTH ONCE A DAY 12) COLCHICINE 0.6MG TAB TAKE ONE-HALF TABLET BY MOUTH ACTIVE TWO TIMES PER WEEK FOR GOUT (STOP MED AND CONTACT PROVIDER AT FIRST SIGN OF NAUSEA, VOMITING OR DIARRHEA) 13) CREON 12,000UNIT EC CAP TAKE 3 CAPSULES BY MOUTH ACTIVE THREE TIMES A DAY BEFORE MEALS FOR PANCREATIC INSUFFICIENCY TAKE WITH FOOD DIRECTED. 14) FERROUS SULFATE 325MG TAB TAKE ONE TABLET BY MOUTH ACTIVE TWICE A DAY FOR IRON DEFICIENCY ANEMIA 15) INSULIN,ASPART(EQV-NOVLG)100UN /ML FLXPEN INJECT 12 ACTIVE UNITS UNDER THE SKIN THREE TIMES A DAY BEFORE MEALS FOR BLOOD SUGAR CONTROL. ADMINISTER 10 MINUTES BEFORE FOOD DIRECTED. REFRIGERATE UN-OPENED PENS. DISCARD CARTRIDGE 28 DAYS AFTER OPENING. 16) INSULIN,GLARGINE-YFGN 100UNIT/ML PEN 3ML INJECT 20 ACTIVE UNITS UNDER THE SKIN ONCE A DAY FOR BLOOD SUGAR CONTROL. ADMINISTER AT SAME TIME EACH DAY DIRECTED. DISCARD ANY OPEN CARTRIDGE AFTER 28 DAYS. 17) LIDOCAINE 2.5/PRILOCAINE 2.5% CREAM APPLY LIGHTLY TO ACTIVE AFFECTED AREA(S) DIRECTED NEEDED BEFORE NEEDLE STICK 18) MIDODRINE HCL 5MG TAB TAKE ONE TABLET BY MOUTH THREE ACTIVE TIMES A DAY FOR LOW BLOOD PRESSURE/DIZZINESS. 19) NEEDLE,PEN 31G,8MM USE 1 NEEDLE UNDER THE SKIN FOUR ACTIVE TIMES A DAY FOR INJECTION 20) OMEPRAZOLE 20MG EC CAP TAKE ONE CAPSULE BY MOUTH ACTIVE EVERY MORNING BEFORE A MEAL TO LOWER STOMACH ACID. TAKE 30 MINUTES PRIOR TO FOOD. 21) OXYBUTYNIN CHLORIDE 5MG TAB TAKE ONE TABLET BY MOUTH ACTIVE THREE TIMES A DAY NEEDED FOR BLADDER 22) RENAL MULTIVIT W/1MG OR LESS FA TAB TAKE 1 TABLET BY ACTIVE MOUTH ONCE A DAY FOR NUTRITION/DIETARY SUPPLEMENTATION 23) SEVELAMER CARBONATE 800MG TAB TAKE THREE TABLETS BY ACTIVE MOUTH THREE TIMES A DAY WITH MEAL(S) FOR HYPERPHOSPHATEMIA. TAKE WITH FOOD. 24) SODIUM BICARBONATE 650MG TAB TAKE ONE TABLET BY MOUTH ACTIVE FOUR TIMES A DAY FOR DIALYSIS 25) TAMSULOSIN HCL 0.4MG CAP TAKE TWO CAPSULES [...] 09:19) GENERAL: Appears in no acute distress. HEENT: Conjunctiva are clear without exudate or gross hemorrhage. Sclera nonicteric. EOM are intact. Ear canals without discharge, Tympanic membrane is without acute changes. Oropharynx is normal in appearance and without swelling or exudate NECK: appearance is normal and without gross masses CARDIAC: Regular rate and rhythm. No JVD RESPIRATORY: CTA bilaterally no rhonchi wheezing or rails. Nonlabored respirations GI: Abdomen normal bowel sounds MUSCULOSKELETAL: No joint effusions, moving extremiteis without difficulty SKIN: Appropriate color for ethnicity. NEUROLOGICAL: The is alert and oriented without distress. Gait is at baseline PSYCHOLOGICAL: Appropriate mood and affect. No suicidal or homicidal ideation. A/P: ASSESSMENT and PLAN 1) DM - Diabetes mellitus (SNOMED CT 81013216) 2) Hearing Loss, Sensorineural, Combined Types 3) Tinnitus, NOS 4) Leg Pain 5) Hyperlipidemia (SNOMED CT 95299578) 6) Chronic obstructive airway disease (SNOMED CT 53549304) 7) Pain in Joint, site unspecified (ICD-9-CM 719.40) 8) Gout (SNOMED CT 25182571) 9) Acute prostatitis (SNOMED CT 26363886) 10) Renal mass (SNOMED CT 239940916) 11) Pancreatitis (SNOMED CT 83215981) 12) Biliary calculus (SNOMED CT 166278949) 13) Primary malignant neoplasm of kidney (SNOMED CT 63569843) 14) Malignant tumor of urinary bladder (SNOMED CT 877707723) 15) H/O: TIA (SNOMED CT 238914855) 16) Dizziness 17) Essential hypertension (SNOMED CT 70453408) 18) Chronic pancreatitis 19) 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 heart failure 20) History of partial nephrectomy 21) History of appendectomy 22) History of cholecystectomy 23) Multiple acquired kidney cysts 24) Dependence on renal dialysis 25) Peripheral vascular disease 26) Elderly fall 27) CAD - Coronary Artery Disease (SCT 70643046) 28) H/O: Stroke (SCT 560177172) 29) ldct sc rng 30) elevated ferritin 31) Cardiac defibrillator in situ 32) Hemorrhagic cystitis 33) Aortic aneurysm screening normal 34) Urinary tract infectious disease 35) disabilty plates 36) Anemia 37) Exposure to potentially hazardous substance 38) Hypoglycemia 39) Mood disorder with depressive features due to general medical condition 40) s/p left adrenectomy 41) pleural thickening of the bronchi hemoptysis went to ED, evaluated H&H stable no egd an d [facility], and diabetes doing well -labs reviewed, went yesterday at [facility], will request PACT RN to get results He seen me so you are really got to be so careful okay Patient's ferritin was elevated when he was ill the last time. We will recheck iron studies at upcoming annual exam. Currently on iron for low iron sat. Stable. Discussed medications with patient; med rec [...] every may for annual labs and annual exam, adding iron studies as well. -Follow-up with me as needed. All questions answered; agrees to plan of care. Follow up as listed above, annually, and as needed. Keep all appointments. Medications Reconciled. /es/ DRE ALEX MD Signed: 03/12/2024 16:39 [place] [facility]
--- OUTSIDE RECORDS SUMMARY | 2024-09-07 10:54 | XMS_ITS | Encounter Summary ---
Author Name [facility] Address [address] [place] [address] Care Team Providers Care Management Tech Name Role Phone DRE ALEX Primary Care [...] PART B Mar 04, 2012 PART B [id number] [phone] LEONARD LEWIS PATIENT MEDICARE (WNR) MEDICARE (M) PART A Mar 04, 2012 PART A [id number] LEONARD LEWIS PATIENT MEDICARE (WNR) MEDICARE (M) PART B Mar 04, 2012 PART B [id number] [phone] LEONARD LEWIS PATIENT MEDICARE (WNR) MEDICARE (M) PART A Mar 04, 2012 PART A [id number] [phone] LEONARD LEWIS PATIENT MEDICARE (WNR) MEDICARE (M) PART B Mar 04, 2012 PART B [id number] LEONARD LEWIS PATIENT MEDICARE (WNR) MEDICARE (M) PART A Mar 04, 2012 PART A [id number] LEONARD LEWIS PATIENT -FO R-LIFE [facility] RE FOR LIFE WNR Aug 31, 2016 FOR LIFE [id number] [phone] LEONARD LEWIS PATIENT -FO R-LIFE [facility] RE FOR LIFE WNR Aug 31, 2016 FOR LIFE [id number] LEONARD LEWIS PATIENT Selected Encounter This section includes the information on record at NE for the Encounter. Date/Time Encounter Type Encounter Description Reason Provider Source Mar 12, 2024 03:31 PM TELEHEALTH FACILITY FEE PRIMARY CARE/MEDICINE ICD-10-CM E11.40 Type 2 diabetes mellitus with diabetic neuropathy, unsp CUSTRED,TIFFANY J IHE Encounter Template Text not used by NE Assessments - Encounter Diagnoses This section includes the primary and secondary diagnoses documented for the Encounter. Date/Time Primary/Secondary Diagnosis Diagnosis Name Provider Source Mar 13, 2024 02:11 PM PRIMARY Type 2 diabetes mellitus with diabetic neuropathy, unsp CUSTKHANH,TIFFANY [facility] Plan of Treatment: Future Appointments (+ 6 months) and Future Tests (+/- 45 days) The Plan of Treatment section includes future care activities for the patient from all NE treatmentfacilities. This section includes future appointments and future orders which are active, pending or scheduled. Future Appointments This section includes appointments that were scheduled to occur 6 months from the date of the Encounter, up to a maximum of 20 appointments. The data comes from all [place] treatment facilities. Appointment Date/Time Appointment Type Appointme nt Facility Name Mar 14, 2024 08:30 AM AMBULATORY - [place]IC[place] [facility] Apr 09, 2024 12:00 PM AMBULATORY - [place]IC[place] [facility] Apr 18, 2024 01:40 PM AMBULATORY - MEDIC[place] [facility] May 02, 2024 09:41 AM AMBULATORY - MEDICINE [place] [facility] May 02, 2024 01:00 PM AMBULATORY - NONE [place] [facility] May 10, 2024 01:30 PM AMBULATORY - MEDICINE [place] [facility] May 23, 2024 09:00 AM AMBULATORY - MEDICINE [facility] May 30, 2024 09:00 AM AMBULATORY - MEDICINE [facility] Jun 11, 2024 11:30 AM AMBULATORY - NONE [place] [facility] Jul 04, 2024 08:30 AM AMBULATORY - MEDICINE [place] [facility] Lab Results: +/- 30 days of the encounter This section includes the Chemistry and Hematology Lab Results on record with NE for the patient. Radiology Reports and Pathology Reports are provided separately, in subsequent sections. Lab Results This section contains the Chemistry/Hematology Results that were resulted 30 days before or 30 daysafter the date of the Encounter. Date/Time Source Result Type Result - Unit Interpretation Reference Range Comment Feb 22, 2024 08:14 AM [facility] HGA1C Specimen Type: BLOOD No comment entered. Ordering Provider: DRE ALEX Report Released Date/Time: Feb 22, 2024 08:13 AM Reporting Lab: [place] [facility] [address] [place] [address] Performing Lab: [place] [facility] [address] [place] [address] HGA1C 5.8 4.0-6.0 Feb 22, 2024 08:14 AM [facility] CHOLESTEROL PANEL (PB) Specimen Type: PLASMA No comment entered. Ordering Provider: DRE ALEX Report Released Date/Time: Feb 22, 2024 08:13 AM Reporting Lab: [place] [facility] [address] [place] [address] Performing Lab: [place] [facility] [address] [place] [address] CHOLESTEROL 86 mg/dL 0-200 TRIGLYCERIDE 71 mg/dL 0-150 CALCULATED LDL 30.8 mg/dL HDL(New) 41.0 mg/dL H >40 HDL % OF TOTAL CHOLESTEROL (PB) 47.7 >25 Feb 22, 2024 08:[address] [facility] COMPREHENSIVE METABOLIC PANEL Specimen Type: PLASMA No comment entered. Ordering Provider: DRE ALEX Report Released Date/Time: Feb 22, 2024 08:13 AM Reporting Lab: [place] [facility] [address] [place] [address] Performing Lab: [place] [facility] [address] [place] [address] CREATININE 5.13 mg/dL H 0.7-1.3 UREA NITROGEN [...] and tobacco- related health factors from the NE facility where the Encounter took place. Current Smoking Status This section includes the most current smoking, or tobacco-related health factor, from the NE facility where the Encounter took place. Date/Time Current Smoking Status Comment [facility] Apr 26, 2023 02:30 PM VA-TOBACCO FORMER USER [facility] Tobacco Use History This section includes a history of the smoking, or tobacco-related health factors, that were collected on or before the date of the Encounter. The data comes from the NE facility where the Encounter took place. Date/Time Smoking Status/Tobac co Use Comment Facility Apr 26, 2023 02:30 PM VA-TOBACCO QUIT 1 TO < 5 YRS [facility] May 26, 2022 09:00 AM VA-TOBACCO FORMER USER [facility] May 26, 2022 09:00 AM VA-TOBACCO QUIT 1 TO < 5 YRS [facility] May 06, 2021 10:30 AM VA-TOBACCO USE 30 YEARS OR MORE [facility] May 06, 2021 10:30 AM VA-TOBACCO USE ADVICE [facility] May 06, 2021 10:30 AM VA-TOBACCO USE POLICY WRITER TYPIST NO [facility] May 06, 2021 10:30 AM VA-TOBACCO USE MED NO [facility] May 06, 2021 10:30 AM VA-TOBACCO USE [place] 30 MIN OF WAKEUP [facility] [place] [facility] May 06, 2021 10:30 AM VA-TOBACCO USER EVERY DAY [facility] Oct 22, 2019 10:03 AM VA-TOBACCO USE 30 YEARS OR MORE [facility] Oct 22, 2019 10:03 AM VA-TOBACCO USE ADVICE [facility] Oct 22, 2019 10:03 AM VA-TOBACCO USE POLICY WRITER TYPIST NO [facility] Oct 22, 2019 10:03 AM VA-TOBACCO USE MED NO [facility] Oct 22, 2019 10:03 AM VA-TOBACCO USE WI 30 MIN OF WAKEUP [facility] Oct 22, 2019 10:03 AM VA-TOBACCO USER EVERY DAY [facility] Apr 18, 2019 10:01 AM CURRENT NON-TOBACC O USER-HX OF USE [facility] Apr 18, 2019 10:01 AM CURRENT TOBACCO USER [facility] Apr 18, 2019 10:01 AM VA-TOBACCO USE 30 YEARS OR MORE [facility] Apr 18, 2019 10:01 AM VA-TOBACCO USE ADVICE [facility] Apr 18, 2019 10:01 AM VA-TOBACCO USE POLICY WRITER TYPIST NO [facility] Apr 18, 2019 10:01 AM VA-TOBACCO USE MED NO [facility] Apr 18, 2019 10:01 AM VA-TOBACCO USE WI 30 MIN OF WAKEUP [facility] Apr 18, 2019 10:01 AM VA-TOBACCO USER EVERY DAY [facility] Mar 18, 2019 10:21 AM CURRENT TOBACCO USER [facility] Sep 18, 2018 09:56 AM CURRENT NON-TOBACC O USER-HX OF USE [facility] Jun 19, 2018 10:55 AM CURRENT TOBACCO USER [facility] Jun 19, 2018 10:55 AM CURRENT TOBACCO US ER (NOT READY TO QUIT) [facility] Jun 19, 2018 10:55 AM TOBACCO CESSATION REFERRAL DECLINED [facility] Jun 19, 2018 10:55 AM TOBACCO MEDS OFFER ED BUT DECLINED [facility] Jun 19, 2018 10:55 AM TOBACCO USER OFFERED MEDS [facility] Mar 13, 2018 11:20 AM CURRENT TOBACCO USER [place] [facility] Mar 13, 2018 [...] 02:34 PM TOBACCO CESSATION REFERRAL DECLINED [place] [facility] Oct 04, [...] AM TOBACCO OFFERED ST OP SMOKING CLINIC [facility] Aug 21, 2013 08:15 AM CURRENT TOBACCO USER [place] [facility] Aug 21, 2013 08:[address] OP SMOKING CLINIC [facility] January 23, 2012 02:12 PM CURRENT TOBACCO USER [facility] January 23, 2012 02:12 PM TOBACCO MEDS OFFER ED BUT DECLINED [facility] [place] [facility] January 23, 2012 02:12 PM TOBACCO OFFERED PT MEDS (PROVIDER) [place] [facility] January 23, 2012 02:[address] OP SMOKING CLINIC [facility] Jul 27, 2011 08:46 AM TOBACCO MEDS OFFER ED BUT DECLINED [place] [facility] Jul 27, 2011 08:46 AM TOBACCO OFFERED PT MEDS (PROVIDER) [facility] [place] [facility] Jul 27, 2011 08:[address] OP SMOKING CLINIC [facility] May 20, 2011 11:24 AM TOBACCO MEDS OFFER ED BUT DECLINED [place] [facility] May 20, 2011 11:24 AM TOBACCO OFFERED PT MEDS (PROVIDER) [place] [facility] May 20, 2011 11:[address] OP SMOKING CLINIC [facility] January 17, 2011 08:35 AM CURRENT TOBACCO USER [facility] January 17, 2011 08:[address] OP SMOKING CLINIC [facility] Jul 12, 2010 01:47 PM TOB INFO ON NON-VA STOP SMOKING CLINIC will start smoking cessation classes 2010 [facility] Jul 12, 2010 01:47 PM TOBACCO MEDS OFFER ED BUT DECLINED [facility] Jul 12, 2010 01:47 PM TOBACCO OFFERED PT MEDS (PROVIDER) declined [facility] Jul 12, 2010 01:[address] OP SMOKING CLINIC will start smoking cessation classes, Sep 08, 2010 [facility] Dec 09, 2009 02:09 PM CURRENT TOBACCO USER [facility] Dec 09, 2009 02:09 PM TOBACCO OFFERED PT MEDS (PROVIDER) [facility] Dec 09, 2009 02:[address] OP SMOKING CLINIC [facility] Dec 09, 2009 02:09 PM TOBACCO OFFERRED P T MEDS (PROVIDER) [facility] Advance Directives: All historical and current Section Date Range: From patient's date of to the date document was created. This section includes ALL of a patient's completed or amended NE Advance and Rescinded Directives. The entries below indicate that a directive exists for the patient, but an actual copy is not included with this document. The data comes from all NE facilities. Date Advance Directives Provider Source May 07, 2014 ADVANCE DIRECTIVE JUAN GILLETTE [facility]DEN [facility] Encounter Notes: All associated encounter notes This section contains the clinical notes associated to the Encounter. Date/Time Encounter Note(s) Provider Source Mar 12, 2024 03:54 PM PRIMARY CARE NURSI NG NOTE: LOCAL TITLE: PRIMARY CARE NURSING PROGRESS NOTE (TEXT) NURSING P STANDARD TITLE: PRIMARY CARE NURSING NOTE DATE OF NOTE: MAR 12, 2024@15:54 ENTRY DATE: MAR 12, 2024@15:54:36 AUTHOR: TIFFANY LUKE COSIGNER: URGENCY: STATUS: COMPLETED Established Patient LEONARD LEWIS IS A 74 YEAR OLD MALE BEING SEEN IN CLINIC MAR 12, 2024. = = REASON FOR VISIT: follow up had hospital visit for vomiting blood and bile Are you receiving care any where other than the [facility]? 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 No CURRENT ACTIVE MEDICATIONS FOR REVIEW: Allergies/ADRs (Tool #5) FACILITY ALLERGY/ADR -------- No Remote Allergy/ADR Data available for this patient [facility] No Known Allergies Med. Reconciliation (Tool #1) INCLUDED IN THIS LIST: Alphabetical list of active outpatient prescriptions dispensed from this NE (local) and dispensed from another NE or [facility] facility (remote) as well as inpatient orders (local pending and active), local clinic medications, locally documented non-VA medications, and local prescriptions that have or been discontinued in the past 90 days. Non-VA Meds Last Documented On: May 21, 2020 NOTE The display of VA prescriptions dispensed from another NE or [facility] facility (remote) is limited to active outpatient prescription entries matched to National Drug File at the originating site and may not include some items such as investigational drugs, compounds, etc. NOT INCLUDED IN THIS LIST: Medications self-entered by the patient into personal health records (i.e. [employer]) are NOT included in this list. Non-VA medications documented outside this NE, remote inpatient orders (regardless of status) and [...] DAY ACETAMINOPHEN (APAP) FROM ALL MEDS. Rx# [id number] Last Released: 05/02/23 Qty/Days Supply: 200 Rx Expiration Date: 04/30/24 Refills Remainin Indication: FOR PAIN OUTPT ALBUTEROL 90MCG (CFC-F) 200D ORAL INHL (Status = Active) INHALE 2 PUFFS ORAL INHALATION FOUR TIMES A DAY NEEDED FOR COPD SHAKE WELL. RINSE MOUTHPIECE FREQUENTLY TO PREVENT CLOGGING. Rx# [id number] Last Released: 05/02/23 Qty/Days Supply: Rx Expiration Date: 04/30/24 Refills Remainin Indication: FOR COPD OUTPT ALLOPURINOL 100MG TAB (Status = Active) TAKE TWO TABLETS BY MOUTH ONCE A DAY FOR GOUT TAKE WITH PLENTY OF WATER. Rx# [id number] Last Released: 12/28/23 Qty/Days Supply: 180/ Rx Expiration Date: 12/26/24 Refills Remainin Indication: FOR GOUT OUTPT ASCORBIC ACID 500MG TAB (Status = Active) TAKE TWO TABLETS BY MOUTH ONCE A DAY FOR VITAMIN SUPPLEMENTATION. Rx# [id number] Last Released: 01/26/24 Qty/Days Supply: 200/ Rx Expiration Date: 12/26/24 Refills Remainin OUTPT ASPIRIN 81MG EC TAB (Status = Active) TAKE ONE TABLET BY MOUTH ONCE A DAY FOR HEART OR CIRCULATION. TAKE WITH FOOD. Rx# [id number] Last Released: 01/04/24 Qty/Days Supply: 120/ Rx Expiration Date: 12/26/24 Refills Remainin OUTPT ATORVASTATIN CALCIUM 80MG TAB (Status = Active) TAKE ONE-HALF TABLET BY MOUTH EVERY EVENING FOR HIGH CHOLESTEROL Rx# [id number] Last Released: 12/27/23 Qty/Days Supply: 45/ Rx Expiration Date: 12/26/24 Refills Remainin Indication: FOR HIGH CHOLESTEROL OUTPT BUPROPION HCL 300MG 24HR SA TAB (Status = Active) TAKE ONE TABLET BY MOUTH ONCE A DAY FOR DEPRESSION SWALLOW WHOLE - DO NOT CRUSH OR CHEW. Rx# [id number] Last Released: 12/28/23 Qty/Days Supply: Rx Expiration Date: 12/26/24 Refills Remainin Indication: FOR DEPRESSION OUTPT CARVEDILOL 25MG TAB (Status = Active) TAKE ONE-HALF TABLET BY MOUTH TWICE A DAY FOR HIGH BLOOD PRESSURE TAKE WITH FOOD. Rx# [id number] Last Released: 02/08/24 Qty/Days Supply: Rx Expiration Date: 04/24/24 Refills Remainin Indication: FOR HIGH BLOOD PRESSURE OUTPT CHOLECALCIF 50MCG (D3-2,000UNIT) TAB (Status = Active) TAKE ONE TABLET BY MOUTH ONCE A DAY FOR VITAMIN D SUPPLEMENTATION Rx# [id number] Last Released: 03/05/24 Qty/Days Supply: 100/ Rx Expiration Date: 04/30/24 Refills Remainin Indication: FOR VITAMIN D SUPPLEMENTATION OUTPT CLOPIDOGREL BISULFATE 75MG TAB (Status = Active) TAKE ONE TABLET BY MOUTH ONCE A DAY Rx# [id number] Last Released: 07/12/23 Qty/Days Supply: 90 Rx Expiration Date: 04/30/24 Refills Remainin Indication: PAD OUTPT COLCHICINE 0.6MG TAB (Status = Active) TAKE ONE-HALF TABLET BY MOUTH TWO TIMES PER WEEK FOR GOUT (STOP MED AND CONTACT PROVIDER AT FIRST SIGN OF NAUSEA, VOMITING OR DIARRHEA) Rx# [id number] Last Released: 03/05/24 Qty/Days Supply: Rx Expiration Date: 05/05/24 Refills Remainin OUTPT CREON 12,000UNIT EC CAP (Status = Active) TAKE 3 CAPSULES BY MOUTH THREE TIMES A DAY BEFORE MEALS FOR PANCREATIC INSUFFICIENCY TAKE WITH FOOD DIRECTED. Rx# [id number] Last Released: 01/15/24 Qty/Days Supply: 900/ Rx Expiration Date: 01/11/25 Refills Remainin Indication: FOR PANCREATIC INSUFFICIENCY OUTPT FERROUS SULFATE 325MG TAB (Status = Active) TAKE ONE TABLET BY MOUTH TWICE A DAY FOR IRON DEFICIENCY ANEMIA Rx# [id number] Last Released: 03/11/24 Qty/Days Supply: 200/ Rx Expiration Date: 05/30/24 Refills Remainin Indication: FOR IRON DEFICIENCY ANEMIA OUTPT INSULIN,ASPART(EQV-NOVLG)100 UN/ML FLXPEN (Status = Active) INJECT 12 UNITS UNDER THE SKIN THREE TIMES A DAY BEFORE MEALS FOR BLOOD SUGAR CONTROL. ADMINISTER 10 MINUTES BEFORE FOOD DIRECTED. REFRIGERATE UN-OPENED PENS. DISCARD CARTRIDGE 28 DAYS AFTER OPENING. Rx# [id number] Last Released: 12/28/23 Qty/Days Supply: Rx Expiration Date: 12/26/24 Refills Remainin OUTPT INSULIN,GLARGINE-YFGN 100UNIT/ML PEN 3ML (Status = Active) INJECT 20 UNITS UNDER THE SKIN ONCE A DAY FOR BLOOD SUGAR CONTROL. ADMINISTER AT SAME TIME EACH DAY DIRECTED. DISCARD ANY OPEN CARTRIDGE AFTER 28 DAYS. Rx# [id number] Last Released: 12/28/23 Qty/Days Supply: Rx Expiration Date: 12/26/24 Refills Remainin OUTPT LIDOCAINE 2.5/PRILOCAINE 2.5% CREAM (Status = Discontinued) APPLY LIGHTLY TO AFFECTED AREA(S) DIRECTED NEEDED BEFORE NEEDLE STICK Rx# [id number] Last Released: 01/19/24 Qty/Days Supply: Rx Expiration Date: 08/25/24 Refills Remainin Indication: BEFORE NEEDLE STICK OUTPT LIDOCAINE 2.5/PRILOCAINE 2.5% CREAM (Status = Active) APPLY LIGHTLY TO AFFECTED AREA(S) DIRECTED NEEDED BEFORE NEEDLE STICK Rx# [id number] Last Released: 03/01/24 Qty/Days Supply: Rx Expiration Date: 02/28/25 Refills Remainin Indication: BEFORE NEEDLE STICK OUTPT MIDODRINE HCL 5MG TAB (Status = Active) TAKE ONE TABLET BY MOUTH THREE TIMES A DAY FOR LOW BLOOD PRESSURE/DIZZINESS. Rx# [id number] Last Released: 01/26/24 Qty/Days Supply: Rx Expiration Date: 12/26/24 Refills Remainin Indication: FOR LOW BLOOD PRESSURE OUTPT OMEPRAZOLE 20MG EC CAP (Status = Active) TAKE ONE CAPSULE BY MOUTH EVERY MORNING BEFORE A MEAL TO LOWER STOMACH ACID. TAKE 30 MINUTES PRIOR TO FOOD. Rx# [id number] Last Released: 11/24/23 Qty/Days Supply: Rx Expiration Date: 08/04/24 Refills Remainin OUTPT OXYBUTYNIN CHLORIDE 5MG TAB (Status = Active) TAKE ONE TABLET BY MOUTH THREE TIMES A DAY NEEDED FOR BLADDER Rx# [id number] Last Released: 12/28/23 Qty/Days Supply: 270/90 Rx Expiration Date: 12/26/24 Refills Remainin OUTPT RENAL MULTIVIT W/1MG OR LESS FA TAB (Status = Active) TAKE 1 TABLET BY MOUTH ONCE A DAY FOR NUTRITION/DIETARY SUPPLEMENTATION Rx# [id number] Last Released: 01/15/24 Qty/Days Supply: 100/90 Rx Expiration Date: 01/11/25 Refills Remainin Indication: FOR NUTRITION/DIETARY SUPPLEMENTATION OUTPT SEVELAMER CARBONATE 800MG TAB (Status = Active) TAKE THREE TABLETS BY MOUTH THREE TIMES A DAY WITH MEAL(S) FOR HYPERPHOSPHATEMIA. TAKE WITH FOOD. Rx# [id number] Last Released: 02/08/24 Qty/Days Supply: 810/90 Rx Expiration Date: 04/30/24 Refills Remainin OUTPT SODIUM BICARBONATE 650MG TAB (Status = Active) TAKE ONE TABLET BY MOUTH FOUR TIMES A DAY FOR DIALYSIS Rx# [id number] Last Released: 03/05/24 Qty/Days Supply: 360/90 Rx Expiration Date: 10/20/24 Refills Remainin Indication: FOR DIALYSIS OUTPT TAMSULOSIN HCL 0.4MG CAP (Status = Active) TAKE TWO CAPSULES BY MOUTH EVERY EVENING FOR BENIGN PROSTATIC HYPERPLASIA APPROXIMATELY 30 MINUTES AFTER THE SAME MEAL EACH DAY (FOR PROSTATE) Rx# [id number] Last Released: 03/11/24 Qty/Days Supply: 60/30 Rx Expiration Date: 04/13/24 Refills Remainin Indication: FOR BENIGN PROSTATIC HYPERPLASIA SUPPLIES OUTPT ACCU-CHEK GUIDE (GLUCOSE) TEST STRIP (Status = Discontinued) USE 1 STRIP FOR BLOOD TEST FOUR TIMES A DAY FOR BLOOD SUGAR MONITORING Rx# [id number] Last Released: 09/22/23 Qty/Days Supply: 400/90 Rx Expiration Date: 03/20/24 Refills Remainin Indication: FOR BLOOD SUGAR MONITORING OUTPT ACCU-CHEK GUIDE (GLUCOSE) TEST STRIP (Status = Active) USE 1 STRIP FOR BLOOD TEST FOUR TIMES A DAY FOR BLOOD SUGAR MONITORING Rx# [id number] Last Released: 12/28/23 Qty/Days Supply: 400/90 Rx Expiration Date: 03/25/24 Refills Remainin Indication: FOR BLOOD SUGAR MONITORING OUTPT NEEDLE,PEN 31G,8MM (Status = Active) USE 1 NEEDLE UNDER THE SKIN FOUR TIMES A DAY FOR INJECTION Rx# [id number] Last Released: 12/28/23 Qty/Days Supply: 400/90 Rx Expiration Date: 07/20/24 Refills Remainin Indication: FOR INJECTION PHARMACY TERMS AND POSSIBLE PATIENT ACTIONS INPT = NE inpatient order IV = NE intravenous medication OUTPT = NE outpatient prescription PHARMACY POSSIBLE PATIENT TERMS EXPLANATION ACTIONS -------- ---- ACTIVE A prescription that can be If you have refills, filled at the local NE pharmacy. you may request a refill of this prescription from your NE pharmacy. CLINIC A medication you received during If you have questions a visit to a NE clinic or about this medication emergency department. contact your NE healthcare team. DISCONTINUED A prescription your provider has Contact your VA stopped. It is no longer healthcare team if you available to be sent to you or need more of this picked up at the NE pharmacy medication. window. A prescription which is [...] the VA. Or, it may be an rfwk-fot-aqhsojt (OTC), herbal, dietary supplements or sample medication. [...] An active prescription that is Contact your NE not scheduled to be filled yet. pharmacy if you need You should receive it before this medication now. you run out. Patient reports taking medications as ordered., Patient reports taking meds other than as directed/ordered: Pantaprozole 40mg started in ER Omeprazole stopped IS PATIENT TAKING ANY OVER THE COUNTER MEDICATIONS, SUCH VITAMINS OR HERBAL SUPPLEMENTS, INCLUDING ANY MEDICATIONS PRESCRIBED BY ANOTHER PHYSICIAN? No ALLERGIES/ADVERSE REACTIONS: Patient has answered NKA Does patient have any new allergies to report since last visit? VITALS: TEMPERATURE: 97.4 F [36.3 C] (05/30/2023 09:19) BP: 144/79 (05/30/2023 09:19) RESP: 16 (05/30/2023 09:19) PULSE: 66 (05/30/2023 09:19) HT: 67 in [170.2 cm] (05/30/2023 09:19) WT: 175 lb [79.38 kg] (05/30/2023 09:19) BMI: 27.5 PAIN ASSESSMENT: (Most Recent Pain [...] Now let us serve you. At the [facility], we strive to provide you with exceptional [...] Not At All SPIRITUAL ASSESSMENT: Are there moravian practices or spiritual concerns you want the air quality technician, your physician, and other health care team members to immediately know about? No Patient advised to call the clinic for any concerns, questions, or symptoms. Patient and/or caregiver verbalized understanding of plan of care. Frail/Elderly Screen: ADL Screen - [place] Index of [place] in Activities of Daily Living Bathing: (3 Points) Receives no assistance (gets in and out of tub by self, if tub is usual means of bathing) Dressing: (3 Points) Gets clothes and gets completely dressed without assistance. Toileting: (3 Points) Goes to toilet room , cleans self, and arranges clothes without assistance (may use object for support such as cane, walker, or wheelchair, and may manage own night bedpan or commode, emptying same next morning) Transferring: (3 Points) Moves in and out of bed and in and out of chair without assistance (may be using object for support, such as cane or walker) Continence: (3 Points) Controls urination and bowel movement completely by self Feeding: (3 Points) Feeds self without assistance Total Score: 18 Points 18 = High (patient independent) 6 = Low (patient very dependent) Falls Screen: No falls within the past 12 months. Incontinence Screen: No incontinence. COVID-19 Immunization: Refused Moderna Monovalent COVID-19 vaccine Immunization: COVID-19 (MODERNA), MRNA, LNP-S, PF, 50 MCG/0.5 ML (AGES 12+ YEARS) Refusal Reason: PATIENT DECISION Patient refuses all immunization(s) in the COVID-19 group Date Documented: 03/12/24 16:03 /sepideh/ TIFFANY LUKE BSRiccardo, RN [facility] Signed: 03/12/2024 16:[address] [facility]
--- OUTSIDE RECORDS SUMMARY | 2024-09-07 10:54 | XMS_ITS ---
Author Name [facility] [place] Address [address] [place] [address] Care Team Providers Care Envelope Cutter Name Role Phone DRE ALEX Primary Care [...] PART B Mar 04, 2012 PART B [id number] [phone] LEONARD LEWIS PATIENT MEDICARE (WNR) MEDICARE (M) PART A Mar 04, 2012 PART A [id number] LEONARD LEWIS PATIENT MEDICARE (WNR) MEDICARE (M) PART A Mar 04, 2012 PART A [id number] [phone] LEONARD LEWIS PATIENT MEDICARE (WNR) MEDICARE (M) PART B Mar 04, 2012 PART B [id number] LEONARD LEWIS PATIENT MEDICARE (WNR) MEDICARE (M) PART A Mar 04, 2012 PART A [id number] [phone] LEONARD LEWIS PATIENT MEDICARE (WNR) MEDICARE (M) PART B Mar 04, 2012 PART B [id number] LEONARD LEWIS PATIENT -FO R-LIFE [facility] RE FOR LIFE WNR Aug 31, 2016 FOR LIFE [id number] LEONARD LEWIS PATIENT -FO R-LIFE [facility] RE FOR LIFE WNR Aug 31, 2016 FOR LIFE [id number] [phone] LEONARD LEWIS PATIENT Selected Encounter This section includes the information on record at [place] for the Encounter. Date/Time Encounter Type Encounter Description Reason Pro vider Source Mar 04, 2024 04:27 PM Outpatient Encounter ADMIN PAT ACTIVTIES (MASNONCT) [...] PM AMBULATORY - [place] [facility] Mar 12, 2024 03:30 PM AMBULATORY - MEDICINE [facility] Mar 12, 2024 03:31 PM AMBULATORY - MEDICINE [facility] Mar 14, 2024 08:30 AM [facility] [place] [facility] Apr 09, 2024 12:00 PM [facility]ULATORY [place] [facility] Apr 18, 2024 01:40 PM AM[facility]ULATORY - [place]IC[place] [facility] May 02, 2024 09:41 AM AM[facility]ULATORY - [place]IC[place] [facility] May 02, 2024 01:00 PM AMBULATORY - NONE [place] [facility] May 10, 2024 01:30 PM [facility]UL[facility]ORY [place] [facility] May 23, 2024 09:00 AM AMBULATORY - MEDICINE [facility] May 30, 2024 09:00 AM AMBULATORY - MEDICINE [facility] Jun 11, 2024 11:30 AM AMBULATORY - NONE [place] [facility] Jul 04, 2024 08:30 AM [facility]ORY - [place]IC[place] [facility] Lab Results: +/- 30 days of the encounter This section includes the Chemistry and Hematology Lab Results on record with [place] for the patient. Radiology Reports and Pathology Reports are provided separately, in subsequent sections. Lab Results This section contains the Chemistry/Hematology Results that were resulted 30 days before or 30 daysafter the date of the Encounter. Date/Time Source Result Type Result - Unit Interpretation Reference Range Comment Feb 22, 2024 08:14 AM [facility] HGA1C Specimen Type: BLOOD No comment entered. Ordering Provider: DRE ALEX Report Released Date/Time: Feb 22, 2024 08:13 AM Reporting Lab: [place] [facility] [address] [place] [address] Performing Lab: [place] [facility] [address] [place] [address] HGA1C 5.8 4.0-6.0 Feb 22, 2024 08:14 AM [facility] CHOLESTEROL PANEL (PB) Specimen Type: PLASMA No comment entered. Ordering Provider: DRE ALEX Report Released Date/Time: Feb 22, 2024 08:13 AM Reporting Lab: [place] [facility] [address] [place] [address] Performing Lab: [place] [facility] [address] [place] [address] CHOLESTEROL 86 mg/dL 0-200 TRIGLYCERIDE 71 mg/dL 0-150 CALCULATED LDL 30.8 mg/dL HDL(New) 41.0 mg/dL H >40 HDL % OF TOTAL CHOLESTEROL (PB) 47.7 >25 Feb 22, 2024 08:14 AM [facility] COMPREHENSIVE METABOLIC PANEL Specimen Type: PLASMA No comment entered. Ordering Provider: DRE ALEX Report Released Date/Time: Feb 22, 2024 08:13 AM Reporting Lab: [place] [facility] [address] [place] [address] Performing Lab: [place] [facility] [address] [place] [address] CREATININE 5.13 mg/dL H 0.7-1.3 UREA NITROGEN [...] ALL of a patient's completed or amended [place] Advance and Rescinded Directives. The entries below indicate that a directive exists for the patient, but an actual copy is not included with this document. The data comes from all [place] facilities. Date Advance Directives Provider Source May 07, 2014 ADVANCE DIRECTIVE JUAN GILLETTEU [facility] Encounter Notes: All associated encounter notes This section contains the clinical notes associated to the Encounter. Date/Time Encounter Note(s) Provider Source Mar 04, 2024 04:27 PM ADMINISTRATIVE NOT E: LOCAL TITLE: ADMINISTRATIVE NOTE PB STANDARD TITLE: ADMINISTRATIVE NOTE DATE OF NOTE: MAR 04, 2024@16:27 ENTRY DATE: MAR 04, 2024@16:27:41 AUTHOR: BRANDI THOMPSON EXP COSIGNER: URGENCY: STATUS: COMPLETED Left voicemail to remind of CPAP appointment. Appointment Date: 03/05/2024 Appointment Time: 12:00 Notified to check in for appointment on the first floor in the [facility]. /sepideh/ BRANDI THOMPSON Signed: 03/04/2024 16:28 BRANDI THOMPSON [facility]
--- OUTSIDE RECORDS SUMMARY | 2024-09-07 10:54 | XMS_ITS | Encounter Summary ---
Author Name [facility] [place] Address [address] [place] [address] Care Team Providers Care Tape Machine Tailer Name Role Phone DRE ALEX Primary Care [...] PART B Mar 04, 2012 PART B [id number] [phone] LEONARD LEWIS PATIENT MEDICARE (WNR) MEDICARE (M) PART A Mar 04, 2012 PART A [id number] [phone] LEONARD LEWIS PATIENT MEDICARE (WNR) MEDICARE (M) PART A Mar 04, 2012 PART A [id number] [phone] LEONARD LEWIS PATIENT MEDICARE (WNR) MEDICARE (M) PART B Mar 04, 2012 PART B [id number] [phone] LEONARD LEWIS PATIENT MEDICARE (WNR) MEDICARE (M) PART A Mar 04, 2012 PART A [id number] LEONARD LEWIS PATIENT MEDICARE (WNR) MEDICARE (M) PART B Mar 04, 2012 PART B [id number] LEONARD LEWIS PATIENT -FO R-LIFE TRICA RE FOR LIFE WNR Aug 31, 2016 FOR LIFE [id number] LEONARD LEWIS PATIENT -FO R-LIFE TRICA RE FOR LIFE WNR Aug 31, 2016 FOR LIFE [id number] [phone] LEONARD LEWIS PATIENT Selected Encounter This section includes the information on record at [place] for the Encounter. Date/Time Encounter Type Encounter Description Reason Pro vider Source Mar 21, 2024 06:58 AM Outpatient Encounter COMMUNITY CARE CONSULT IHE [...] AMBULATORY - [place] [facility] Apr 18, 2024 01:40 PM AM[facility]UL[facility]ORY [facility] [place] [facility] May 02, 2024 09:41 AM [facility]ULATORY [facility] [place]IC[place] [facility] May 02, 2024 01:00 PM AMBULATORY - NONE [place] [facility] May 10, 2024 01:30 PM [facility] [place] [facility] May 23, 2024 09:00 AM AMBULATORY - MEDICINE [facility] May 30, 2024 09:00 AM AMBULATORY - MEDICINE [facility] Jun 11, 2024 11:30 AM AMBULATORY - NONE [place] [facility] Jul 04, 2024 08:30 AM AMBULATORY - MEDICINE [place] [facility] Lab Results: +/- 30 days [...] Range Comment Feb 22, 2024 08:14 AM [facility] CB HGA1C Specimen Type: BLOOD No comment entered. Ordering Provider: DRE ALEX Report Released Date/Time: Feb 22, 2024 08:13 AM Reporting Lab: [place] [facility] [address] [place] [address] Performing Lab: [place] [facility] [address] [place] [address] HGA1C 5.8 4.0-6.0 Feb 22, 2024 08:14 AM [facility] CHOLESTEROL PANEL (PB) Specimen Type: PLASMA No comment entered. Ordering Provider: DRE ALEX Report Released Date/Time: Feb 22, 2024 08:13 AM Reporting Lab: [place] [facility] [address] [place] [address] Performing Lab: [place] [facility] [address] [place] [address] CHOLESTEROL 86 mg/dL 0-200 TRIGLYCERIDE 71 mg/dL 0-150 CALCULATED LDL 30.8 mg/dL HDL(New) 41.0 mg/dL H >40 HDL % OF TOTAL CHOLESTEROL (PB) 47.7 >25 Feb 22, 2024 08:14 AM [facility] CB COMPREHENSIVE METABOLIC PANEL Specimen Type: PLASMA No comment entered. Ordering Provider: DRE ALEX Report Released Date/Time: Feb 22, 2024 08:13 AM Reporting Lab: [place] [facility] [address] [place] [address] Performing Lab: [place] [facility] [address] [place] [address] CREATININE 5.13 mg/dL H 0.7-1.3 UREA NITROGEN [...] 2014 ADVANCE DIRECTIVE JUAN GILLETTE [facility] Encounter Notes: All associated encounter notes This section contains the clinical notes associated to the Encounter. Date/Time Encounter Note(s) Provider Source Mar 21, 2024 07:00 AM LETTERS: LOCAL TITLE: COMMUNITY CARE-REQUEST FOR SERVICES (RFS) LETTER [facility] TITLE: LETTERS DATE OF NOTE: MAR 21, 2024@07:00 ENTRY DATE: MAR 21, 2024@07:00:40 AUTHOR: LASHA VENTURA EXP COSIGNER: URGENCY: STATUS: COMPLETED [facility] [address] [place] [address] P: [phone] F: [phone] Dear Provider, Information: Patient Name: LEONARD LEWIS Date of : [address] [facility] has received the request. Upon review, the following determination has been made: A new consult has been entered for the requested services. Once the consult has been signed and processed a new authorization will be faxed to the appropriate office. No further action is required from you at this time. Should you have questions, please contact the pillowcase folder Lasha Ventura RN at [phone] ext [phone]. As a reminder, if applicable, return medical records within 30 days for routine services. Sincerely, LASHA Tmo RN [facility] Mar 21, 2024 06:59 AM NONVA NOTE: LOCAL TITLE: COMMUNITY CARE-REQUEST FOR SERVICE NOTE PB STANDARD TITLE: NONVA NOTE DATE OF NOTE: MAR 21, 2024@06:59 ENTRY DATE: MAR 21, 2024@06:59:14 AUTHOR: LASHA VENTURA COSIGNER: URGENCY: STATUS: COMPLETED COMMUNITY CARE-REQUEST FOR SERVICE NOTE PB Has ADDENDA Request for Services (RFS) documentation has been sent for scanning to [facility] Community Care Consult: COMMUNITY [id number] Consult Number: [id number] Authorization Number: Date sent to scanning: Mar A Request for Service (RFS) form [id number] has been received which includes the following: Care Requested:. RFS received from Dr. Flores Mckeon, [facility] for continuation of care. DX: L57.0, Z85.828,L82.1, L81.4, D22.5, D69.2, L85.3. Next scheduled appointment 01/02/24 @1030 Date VA received request: Mar Date service required (PID): Dec Requesting [facility] Provider Information: Name of Ordering Provider: . [facility] [address] [place] [address] P: [phone] F: [phone] /sepideh/ LASHA VENTURA RN Signed: 03/21/2024 07:00 12/28/2023 ADDENDUM STATUS: COMPLETED [facility] Scanned Document - Addendum. Community Care Consult: COMMUNITY [id number] Consult Number: [id number] Authorization Number: Date sent to scanning: Mar SCANNED DOCUMENT SIGNATURE NOT REQUIRED Electronically Filed: 03/21/2024 by: RAUL Giron [facility] LASHA VENTURA [facility]
--- OUTSIDE RECORDS SUMMARY | 2024-09-07 10:54 | XMS_ITS | Encounter Summary ---
Author Name [facility] [place] Organization [place] Address [address] [place] [address] Care Team Providers Care Performing Artist Name Role Phone DRE ALEX Primary Care [...] PART A Mar 04, 2012 PART A [id number] ALONSO DELGADO PATIENT MEDICARE (WNR) MEDICARE (M) PART B Mar 04, 2012 PART B [id number] [phone] ALONSO DELGADO PATIENT MEDICARE (WNR) MEDICARE (M) PART A Mar 04, 2012 PART A [id number] [phone] ALONSO DELGADO PATIENT MEDICARE (WNR) MEDICARE (M) PART B Mar 04, 2012 PART B [id number] ALONSO DELGADO PATIENT MEDICARE (WNR) MEDICARE (M) PART B Mar 04, 2012 PART B [id number] ALONSO DELGADO PATIENT MEDICARE (WNR) MEDICARE (M) PART A Mar 04, 2012 PART A [id number] ALONSO DELGADO PATIENT -FO R-LIFE TRICA RE FOR LIFE WNR Aug 31, 2016 FOR LIFE [id number] [phone] ALONSO DELGADO PATIENT -FO R-LIFE TRICA RE FOR LIFE WNR Aug 31, 2016 FOR LIFE [id number] [phone] ALONSO DELGADO PATIENT Selected Encounter This section includes the information on record at [place] for the Encounter. Date/Time Encounter Type Encounter Description Reason Pro vider Source Mar 22, 2024 10:14 AM Outpatient Encounter COMMUNITY CARE CONSULT IHE Encounter Template Text not used by [place] Plan of Treatment: Future Appointments (+ 6 months) and Future Tests (+/- 45 days) The Plan of Treatment section includes future care activities for the patient from all [place] treatmentfacilities. This section includes future appointments and future orders which are active, pending or scheduled. Future Appointments This section includes appointments that were scheduled to occur 6 months from the date of the Encounter, up to a maximum of 20 appointments. The data comes from all [place] treatment facilities. Appointment Date/Time Appointment Type Appointme nt Facility Name Apr 09, 2024 12:00 PM [facility]UL[facility]ORY [place] [facility] Apr 18, 2024 01:40 PM AMBULATORY - [place]IC[place] [facility] May 02, 2024 09:41 AM AMBULATORY - [place]IC[place] [facility] May 02, 2024 01:00 PM AMBULATORY - NONE [place] [facility] May 10, 2024 01:30 PM AMBULATORY - MEDICINE [place] [facility] May 23, 2024 09:00 AM AMBULATORY - MEDICINE [facility] May 30, 2024 09:00 AM AMBULATORY - MEDICINE [facility] Jun 11, 2024 11:30 AM AMBULATORY - NONE [place] [facility] Jul 04, 2024 08:30 AM [facility]ULATORY - [place]IC[place] [facility] Lab Results: +/- 30 days of the encounter This section includes the Chemistry and Hematology Lab Results on record with [place] for the patient. Radiology Reports and Pathology Reports are provided separately, in subsequent sections. Lab Results This section contains the Chemistry/Hematology Results that were resulted 30 days before or 30 daysafter the date of the Encounter. Date/Time Source Result Type Result - Unit Interpretation Reference Range Comment Feb 22, 2024 08:14 AM [facility] HGA1C Specimen Type: BLOOD No comment entered. Ordering Provider: DRE ALEX Report Released Date/Time: Feb 22, 2024 08:13 AM Reporting Lab: [place] [facility] [address] [place] [address] Performing Lab: [place] [facility] [address] [place] [address] HGA1C 5.8 4.0-6.0 Feb 22, 2024 08:14 AM [facility] CHOLESTEROL PANEL (PB) Specimen Type: PLASMA No comment entered. Ordering Provider: DRE ALEX Report Released Date/Time: Feb 22, 2024 08:13 AM Reporting Lab: [place] [facility] [address] [place] [address] Performing Lab: [place] [facility] [address] [place] [address] CHOLESTEROL 86 mg/dL 0-200 TRIGLYCERIDE 71 mg/dL 0-150 CALCULATED LDL 30.8 mg/dL HDL(New) 41.0 mg/dL H >40 HDL % OF TOTAL CHOLESTEROL (PB) 47.7 >25 Feb 22, 2024 08:14 AM [facility] COMPREHENSIVE METABOLIC PANEL Specimen Type: PLASMA No comment entered. Ordering Provider: DRE ALEX Report Released Date/Time: Feb 22, 2024 08:13 AM Reporting Lab: [place] [facility] [address] [place] [address] Performing Lab: [place] [facility] [address] [place] [address] CREATININE 5.13 mg/dL H 0.7-1.3 UREA NITROGEN [...] ALL of a patient's completed or amended [place] Advance and Rescinded Directives. The entries below indicate that a directive exists for the patient, but an actual copy is not included with this document. The data comes from all [place] facilities. Date Advance Directives Provider Source May 07, 2014 ADVANCE DIRECTIVE JUAN GILLETTE [facility] Encounter Notes: All associated encounter notes This section contains the clinical notes associated to the Encounter. Date/Time Encounter Note(s) Provider Source Mar 22, 2024 10:14 AM LETTERS: LOCAL TITLE: COMMUNITY CARE-REFERRAL PB (AUTO-PRINT) STANDARD TITLE: LETTERS DATE OF NOTE: MAR 22, 2024@10:14:37 ENTRY DATE: MAR 22, 2024@10:14:37 AUTHOR: KEVIN MARTINEZ COSIGNER: URGENCY: STATUS: COMPLETED Alonso Delgado [address] [place], [place] [address] Dear ALONSO DELGADO, Your VA provider has referred you to a provider within the community for care. Your medical care for DERMATOLOGY has been authorized with the Community Care Provider listed below. DO NOT REPORT TO THE [facility] Provider info: An appointment has been scheduled for you on: Jan 02, 2024 10:30 AM Office Name: [facility] Address: [address] [place] [address] Address: [place] [address] Auth #: [id number] Referral Issue Date: 01/02/2024 Expiration Date: 06/30/2024 If you are unable to keep this appointment or the appointment is no longer needed, please contact the community provider above for notification/rescheduling and then call the [place] Community Care Office at [phone] Ext [phone]. If you need additional care/services not mentioned [...] medication. In-network locations can be found at https://www.va.gov/find-loca tions/ Medical Devices: Your community provider may recommend [...] 72hr or ER visit and/or admission by [phone]. Thank you for the opportunity to serve you and for your service to our great nation! [facility] Care in the Community [address] [facility] [address] KEVIN MARTINEZ [facility]
--- OUTSIDE RECORDS SUMMARY | 2024-09-07 10:55 | XMS_ITS | Encounter Summary ---
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 Role Phone DRE ALEX [...] PART A Mar 04, 2012 PART A [id number] [phone] ALONSO DELGADO PATIENT MEDICARE (WNR) MEDICARE (M) PART B Mar 04, 2012 PART B [id number] ALONSO DELGADO PATIENT MEDICARE (WNR) MEDICARE (M) PART A Mar 04, 2012 PART A [id number] [phone] ALONSO DELGADO PATIENT MEDICARE (WNR) MEDICARE (M) PART B Mar 04, 2012 PART B [id number] ALONSO DELGADO PATIENT MEDICARE (WNR) MEDICARE (M) PART B Mar 04, 2012 PART B [id number] ALONSO DELGADO PATIENT MEDICARE (WNR) MEDICARE (M) PART A Mar 04, 2012 PART A [id number] ALONSO DLEGADO PATIENT -FO R-LIFE [facility] FOR LIFE WNR Aug 31, 2016 FOR LIFE [id number] [phone] ALONSO DELGADO PATIENT -FO R-LIFE [facility] RE FOR LIFE WNR Aug 31, 2016 FOR LIFE [id number] [phone] ALONSO DELGADO PATIENT Selected Encounter This section includes the information on record at [place] for the Encounter. Date/Time Encounter Type Encounter Description Reason Pro vider Source Apr 17, 2024 08:09 AM Outpatient Encounter COMMUNITY CARE CONSULT IHE Encounter Template Text not used by [place] Plan of Treatment: Future Appointments (+ 6 months) and Future Tests (+/- 45 days) The Plan of Treatment section includes future care activities for the patient from all [place] treatmentfacilities. This section includes future appointments and future orders which are active, pending or scheduled. Future Appointments This section includes appointments that were scheduled to occur 6 months from the date of the Encounter, up to a maximum of 20 appointments. The data comes from all [place] treatment facilities. Appointment Date/Time Appointment Type Appointme nt Facility Name Apr 18, 2024 01:40 PM [facility] [place] [facility] May 02, 2024 09:41 AM AM[facility]ORY - [place]IC[place] [facility] May 02, 2024 01:00 PM AMBULATORY - NONE [place] [facility] May 10, 2024 01:30 PM [facility] [place]IC[place] [facility] May 23, 2024 09:00 AM AMBULATORY - MEDICINE [facility] May 30, 2024 09:00 AM AMBULATORY - MEDICINE [facility] Jun 11, 2024 11:30 AM AMBULATORY - NONE [place] [facility] Jul 04, 2024 08:30 AM AMBULATORY - [place]IC[place] [facility] Lab Results: +/- 30 days of the encounter This section includes the Chemistry and Hematology Lab Results on record with [place] for the patient. Radiology Reports and Pathology Reports are provided separately, in subsequent sections. Lab Results This section contains the Chemistry/Hematology Results that were resulted 30 days before or 30 daysafter the date of the Encounter. Date/Time Source Result Type Result - Unit Interpretation Reference Range Comment May 02, 2024 10:09 AM [place] [facility] HEPATIC FUNCTION PROFILE (PB) Specimen Type: PLASMA No comment entered. Ordering Provider: DARRYL COBURN Report Released Date/Time: May 02, 2024 10:01 AM Reporting Lab: [place] [facility] [address] [place] [address] Performing Lab: [place] [facility] [address] [place] [address] PROTEIN 6.9 g/dL 6-8.6 ALBUMIN 4.2 g/dL 3.4-5 TOTAL BILIRUBIN 0.7 mg/dL 0.2-1.2 ALKALINE PHOSPHATASE 85 U/L 40-150 AST/SGOT 20 U/L 5-34 ALT/SGPT 27 U/L 8-40 CONJ. BILIRUBIN 0.3 mg/dL 0-0.5 May 02, 2024 10:09 AM [facility] MAGNESIUM Specimen Type: PLASMA No comment entered. Ordering Provider: DARRYL COBURN Report Released Date/Time: May 02, 2024 10:01 AM Reporting Lab: [place] [facility] [address] [place] [address] Performing Lab: [place] [facility] [address] [place] [address] MAGNESIUM 1.59 mg/dL L 1.6-2.6 May 02, 2024 10:09 AM [facility] LIPASE Specimen Type: PLASMA No comment entered. Ordering Provider: DARRYL COBURN Report Released Date/Time: May 02, 2024 10:01 AM Reporting Lab: [place] [facility] [address] [place] [address] Performing Lab: [place] [facility] [address] [place] [address] LIPASE <4 U/L L 8-78 May 02, 2024 10:09 AM [facility] AMYLASE Specimen Type: PLASMA No comment entered. Ordering Provider: DARRYL COBURN Report Released Date/Time: May 02, 2024 10:01 AM Reporting Lab: [place] [facility] [address] [place] [address] Performing Lab: [place] [facility] [address] [place] [address] AMYLASE 47 U/L 25-125 May 02, 2024 10:09 AM [place] [facility] BASIC METABOLIC PANEL Specimen Type: PLASMA No comment entered. Ordering Provider: DARRYL COBURN Report Released Date/Time: May 02, 2024 10:01 AM Reporting Lab: [place] [facility] [address] [place] [address] Performing Lab: [place] [facility] [address] [place] [address] CREATININE 4.65 mg/dL H 0.7-1.3 UREA NITROGEN 28 mg/dL H 9-25 GLUCOSE 147 mg/dL H 72-99 SODIUM 140 meq/L 136-145 POTASSIUM 4.2 meq/L 3.5-5 CHLORIDE 96 meq/L L 98-107 CARBON DIOXIDE 32 meq/L H 22-31 CALCIUM 9.3 mg/dL 8.4-10.4 EGFR (CKD-EPI 2020) 12 May 02, 2024 10:09 AM [facility] UR[facility] ACID Specimen Type: PLASMA No comment entered. Ordering Provider: DARRYL COBURN Report Released Date/Time: May 02, 2024 10:01 AM Reporting Lab: [place] [facility] [address] [place] [address] Performing Lab: [place] [facility] [address] [place] [address] URIC ACID 2.6 mg/dL L 3.5-7.2 May 02, 2024 10:09 AM [place] [facility] CBC Specimen Type: BLOOD No comment entered. Ordering Provider: DARRYL COBURN Report Released Date/Time: May 02, 2024 10:01 AM Reporting Lab: [place] [facility] [address] [place] [address] Performing Lab: [place] [facility] [address] [place] [address] WBC 7.2 10*3/uL 3.6-11.2 RBC 3.44 10*6/uL [...] ALL of a patient's completed or amended [place] Advance and Rescinded Directives. The entries below indicate that a directive exists for the patient, but an actual copy is not included with this document. The data comes from all [place] facilities. Date Advance Directives Provider Source May 07, 2014 ADVANCE DIRECTIVE JUAN GILLETTE [facility] Radiology Reports: +/- 30 days of [...] the Encounter. The data comes from all [place] treatment facilities. Date/Time Radiology Report Provider Source May 02, 2024 11:47 AM LDCT LCS 1, 3 OR 6 MONTH FOLLOW UP: ALONSO DELGADO [id number] -[id number] M Exm Date: MAY 02, 2024@11:47 Req Phys: GABRIELE WARREN Pat Loc: PB-PHONE LUNG SCREEN (Req'g Lo Img Loc: PB-CT IMAGING Service: Unknown LUZ MARIA [facility] [place] [address] (Case [id number] COMPLETE) LDCT LCS 1, 3 OR 6 MONTH FOLLOW U(CT Detailed) CPT:37516 Reason for Study: LCS 3 month f/u Clinical History: 01.30.2024 LRADS 4A; 5.5mm left lobe Smoking hx: 1.5ppd x 55 yrs; quit 2020 has dialysis M,W,F. Please schedule for / Report Status: Verified Date Reported: MAY 03, 2024 Date Verified: MAY 03, 2024 Line Locator E-Sig: Report: EXAM: LDCT LCS 1, 3 OR 6 MONTH FOLLOW UP ADDITIONAL HISTORY: N/A COMPARISON: CT chest 01/30/2024, 10/31/2023, 04/13/2020 PROTOCOL: Screening protocol, low dose, non-contrast CT chest was performed at the local [place] facility in accordance with Lung-Rads 2021. Additional coronal and sagittal reconstructions. MIP reconstructions were reviewed. 2181 images were received by the [place] National Teleradiology Program (NTP) for interpretation. RADIATION [...] atelectasis. READING PHYSICIAN: Luz Maria Alan M.D. -[id number] 05/03/2024 12:31 EDT [facility] National Teleradiology Program [phone] (For Medical Practitioner Use Only) Attention Patients / Veterans: If you have questions or concerns about these test results, please contact your ordering provider or primary care team. Primary Interpreting Staff: RADIOLOGY,OUTSIDE SERVICE, Staff Physician / RADIOLOGY,OUTSIDE SERVICE RICARDO MARQUEZ [facility] May 02, 2024 10:08 AM OBSTRUCTIVE SERIES : ALONSO DELGADO [facility] [id number] -1950 Ex Date: MAY 02, 2024@10:08 Req Phys: DARRYL COBURN Loc: PB-CARLYN [place] (Req'g Loc) [facility] [place]-RADIOLOGY Service: Unknown LUZ MARIA [facility] [place] [address] (Case [id number] COMPLETE) OBSTRUCTIVE SERIES (RAD Detailed) CPT:30472 Reason for Study: nausea, constipation for 6 weeks Clinical History: nausea, constipation for 6 weeks Report Status: Verified Date Reported: MAY 02, 2024 Date Verified: MAY 02, 2024 Line Locator E-Sig:/ES/RONI MCKEON Report: Obstructive series Chest reveals [...] calcification Primary Interpreting Staff: RONI MCKEON, RADIOLOGIST (Line Locator) /RONI Hi [facility] Encounter Notes: All associated encounter notes This section contains the clinical notes associated to the Encounter. Date/Time Encounter Note(s) Provider Source Apr 17, 2024 08:09 AM LETTERS: LOCAL TITLE: COMMUNITY CARE-REFERRAL PB (AUTO-PRINT) STANDARD TITLE: LETTERS DATE OF NOTE: APR 17, 2024@08:09:23 ENTRY DATE: APR 17, 2024@08:09:23 AUTHOR: KEVIN MARTINEZ COSIGNER: URGENCY: STATUS: COMPLETED Alonso Delgado [address] [place], [place] [address] Dear ALONSO DELGADO, Your [place] provider has referred you to a provider within the community for care. Your medical care for DERMATOLOGY has been authorized with the Community Care Provider listed below. DO NOT REPORT TO THE [facility] Provider info: An appointment has been scheduled for you on: January 27, 2024 10:30 AM Office Name: [facility] Address: [address] [place] [address] Address: [place] [address] Auth #: [id number] Referral Issue Date: 01/02/2024 Expiration Date: 07/25/2024 If you are unable to keep this appointment or the appointment is no longer needed, please contact the community provider above for notification/rescheduling and then call the Luz Maria [facility] Community Care Office at [phone] Ext [phone]. If you need additional care/services not mentioned [...] 72hr or ER visit and/or admission by [phone]. Thank you for the opportunity to serve you and for your service to our great nation! Luz Maria [facility] Care in the Community [address] [place] [address] KEVIN MARTINEZ [facility]
--- OUTSIDE RECORDS SUMMARY | 2024-09-07 10:55 | XMS_ITS ---
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 Phone DRE ALEX Primary Care [...] PART B Mar 04, 2012 PART B [id number] [phone] LEONARD LEWIS PATIENT MEDICARE (WNR) MEDICARE (M) PART A Mar 04, 2012 PART A [id number] [phone] LEONARD LEWIS PATIENT MEDICARE (WNR) MEDICARE (M) PART A Mar 04, 2012 PART A [id number] LEONARD LEWIS PATIENT MEDICARE (WNR) MEDICARE (M) PART B Mar 04, 2012 PART B [id number] [phone] LEONARD LEWIS PATIENT MEDICARE (WNR) MEDICARE (M) PART A Mar 04, 2012 PART A [id number] LEONARD LEWIS PATIENT MEDICARE (WNR) MEDICARE (M) PART B Mar 04, 2012 PART B [id number] LEONARD LEWIS PATIENT -FO R-LIFE [facility] RE FOR LIFE WNR Aug 31, 2016 FOR LIFE [id number] LEONARD LEWIS PATIENT -FO R-LIFE TRICA RE FOR LIFE WNR Aug 31, 2016 FOR LIFE [id number] [phone] LEONARD LEWIS PATIENT Selected Encounter This section includes the information on record at [place] for the Encounter. Date/Time Encounter Type Encounter Description Reason Pro vider Source Mar 14, 2024 12:00 AM Outpatient Encounter EVENT (HISTORICAL) IHE Encounter Template Text not used by [place] Plan of Treatment: Future Appointments (+ 6 months) and Future Tests (+/- 45 days) The Plan of Treatment section includes future care activities for the patient from all [place] treatmentfacilities. This section includes future appointments and future orders which are active, pending or scheduled. Future Appointments This section includes appointments that were scheduled to occur 6 months from the date of the Encounter, up to a maximum of 20 appointments. The data comes from all [place] treatment facilities. Appointment Date/Time Appointment Type Appointme nt Facility Name Apr 09, 2024 12:00 PM [facility] [place] [facility] Apr 18, 2024 01:40 PM [facility] [place]IC[place] [facility] May 02, 2024 09:41 AM AM[facility] [place]IC[place] [facility] May 02, 2024 01:00 PM AMBULATORY - NONE [place] [facility] May 10, 2024 01:30 PM AM[facility]ORY - [place]IC[place] [facility] May 23, 2024 09:00 AM AMBULATORY - MEDICINE [facility] May 30, 2024 09:00 AM AMBULATORY - MEDICINE [facility] Jun 11, 2024 11:30 AM AMBULATORY - NONE [place] [facility] Jul 04, 2024 08:30 AM AMBULATORY - [place]ICINE [place] [facility] Lab Results: +/- 30 days of the encounter This section includes the Chemistry and Hematology Lab Results on record with [place] for the patient. Radiology Reports and Pathology Reports are provided separately, in subsequent sections. Lab Results This section contains the Chemistry/Hematology Results that were resulted 30 days before or 30 daysafter the date of the Encounter. Date/Time Source Result Type Result - Unit Interpretation Reference Range Comment Feb 22, 2024 08:14 AM [facility] HGA1C Specimen Type: BLOOD No comment entered. Ordering Provider: DRE ALEX Report Released Date/Time: Feb 22, 2024 08:13 AM Reporting Lab: [place] [facility] [address] [place] [address] Performing Lab: [place] [facility] [address] [place] [address] HGA1C 5.8 4.0-6.0 Feb 22, 2024 08:14 AM [facility] CHOLESTEROL PANEL (PB) Specimen Type: PLASMA No comment entered. Ordering Provider: DRE ALEX Report Released Date/Time: Feb 22, 2024 08:13 AM Reporting Lab: [place] [facility] [address] [place] [address] Performing Lab: [place] [facility] [address] [place] [address] CHOLESTEROL 86 mg/dL 0-200 TRIGLYCERIDE 71 mg/dL 0-150 CALCULATED LDL 30.8 mg/dL HDL(New) 41.0 mg/dL H >40 HDL % OF TOTAL CHOLESTEROL (PB) 47.7 >25 Feb 22, 2024 08:14 AM [facility] COMPREHENSIVE METABOLIC PANEL Specimen Type: PLASMA No comment entered. Ordering Provider: DRE ALEX Report Released Date/Time: Feb 22, 2024 08:13 AM Reporting Lab: [place] [facility] [address] [place] [address] Performing Lab: [place] [facility] [address] [place] [address] CREATININE 5.13 mg/dL H 0.7-1.3 UREA NITROGEN [...] ALL of a patient's completed or amended [place] Advance and Rescinded Directives. The entries below indicate that a directive exists for the patient, but an actual copy is not included with this document. The data comes from all [place] facilities. Date Advance Directives Provider Source May 07, 2014 ADVANCE DIRECTIVE JUAN GILLETTE [facility] Encounter Notes: All associated encounter notes This section contains the clinical notes associated to the Encounter. Date/Time Encounter Note(s) Provider Source Mar 14, 2024 12:00 AM NONVA CONSULT: LOCAL TITLE: COMMUNITY CARE-CONSULT RESULT NOTE PB STANDARD TITLE: NONVA CONSULT DATE OF NOTE: MAR 14, 2024 ENTRY DATE: APR 13, 2024@01:30:04 AUTHOR: SHIRLEY OWEN EXP COSIGNER: URGENCY: STATUS: COMPLETED VistA Imaging - Scanned Document [id number] LYNNE A POLI CARDIOLOGY VISIT SCANNED DOCUMENT SIGNATURE NOT REQUIRED Electronically Filed: 04/13/2024 by: SHIRLEY MONTOYA [facility]
--- OUTSIDE RECORDS SUMMARY | 2024-09-07 10:55 | XMS_ITS | Encounter Summary ---
Author Name [facility] [place] Organization [facility] [place] Address [address] [place] [address] Care Team Providers Care Tube Man Name Role Phone DRE ALEX Primary Care [...] PART B Mar 04, 2012 PART B [id number] [phone] LEONARD LEWIS PATIENT MEDICARE (WNR) MEDICARE (M) PART A Mar 04, 2012 PART A [id number] [phone] LEONARD LEWIS PATIENT MEDICARE (WNR) MEDICARE (M) PART A Mar 04, 2012 PART A [id number] LEONARD LEWIS PATIENT MEDICARE (WNR) MEDICARE (M) PART B Mar 04, 2012 PART B [id number] LEONARD LEWIS PATIENT MEDICARE (WNR) MEDICARE (M) PART B Mar 04, 2012 PART B [id number] LEONARD LEWIS PATIENT MEDICARE (WNR) MEDICARE (M) PART A Mar 04, 2012 PART A [id number] [phone] LEONARD LEWIS PATIENT -FO R-LIFE [facility] RE FOR LIFE WNR Aug 31, 2016 FOR LIFE [id number] [phone] LEONADR LEWIS PATIENT -FO R-LIFE [facility] RE FOR LIFE WNR Aug 31, 2016 FOR LIFE [id number] [phone] LEONARD LEWIS PATIENT Selected Encounter This section includes the information on record at [place] for the Encounter. Date/Time Encounter Type Encounter Description Reason Pro vider Source Apr 18, 2024 12:00 AM Outpatient Encounter EVENT (HISTORICAL) [...] Date/Time Appointment Type Appointme nt Facility Name May 02, 2024 09:41 AM [facility] [facility] May 02, 2024 01:00 PM [facility] - NONE [place] [facility] May 10, 2024 01:30 PM [facility] [place] [facility] May 23, 2024 09:00 AM AMBULATORY - MEDICINE [facility] May 30, 2024 09:00 AM AMBULATORY - MEDICINE [facility] Jun 11, 2024 11:30 AM AMBULATORY - NONE [place] [facility] Jul 04, 2024 08:30 AM [facility] - [facility]IC[facility] [place] [facility] Lab Results: +/- 30 days of the encounter This section includes the Chemistry and Hematology Lab Results on record with [place] for the patient. Radiology Reports and Pathology Reports are provided separately, in subsequent sections. Lab Results This section contains the Chemistry/Hematology Results that were resulted 30 days before or 30 daysafter the date of the Encounter. Date/Time Source Result Type Result - Unit Interpretation Reference Range Comment May 02, 2024 10:09 AM [place] [facility] HEPATIC FUNCTION PROFILE (PB) Specimen Type: PLASMA No comment entered. Ordering Provider: DARRYL COBURN Report Released Date/Time: May 02, 2024 10:01 AM Reporting Lab: [place] [facility] [address] [place] [address] Performing Lab: [place] [facility] [address] [place] [address] PROTEIN 6.9 g/dL 6-8.6 ALBUMIN 4.2 g/dL 3.4-5 TOTAL BILIRUBIN 0.7 mg/dL 0.2-1.2 ALKALINE PHOSPHATASE 85 U/L 40-150 AST/SGOT 20 U/L 5-34 ALT/SGPT 27 U/L 8-40 CONJ. BILIRUBIN 0.3 mg/dL 0-0.5 May 02, 2024 10:09 AM [facility] MAGNESIUM Specimen Type: PLASMA No comment entered. Ordering Provider: DARRYL CBOURN Report Released Date/Time: May 02, 2024 10:01 AM Reporting Lab: [place] [facility] [address] [place] [address] Performing Lab: [place] [facility] [address] [place] [address] MAGNESIUM 1.59 mg/dL L 1.6-2.6 May 02, 2024 10:09 AM [facility] AMYLASE Specimen Type: PLASMA No comment entered. Ordering Provider: DARRYL COBURN Report Released Date/Time: May 02, 2024 10:01 AM Reporting Lab: [place] [facility] [address] [place] [address] Performing Lab: [place] [facility] [address] [place] [address] AMYLASE 47 U/L 25-125 May 02, 2024 10:09 AM [place] [facility] BASIC METABOLIC PANEL Specimen Type: PLASMA No comment entered. Ordering Provider: DARRYL COBURN Report Released Date/Time: May 02, 2024 10:01 AM Reporting Lab: [place] [facility] [address] [place] [address] Performing Lab: [place] [facility] [address] [place] [address] CREATININE 4.65 mg/dL H 0.7-1.3 UREA NITROGEN 28 mg/dL H 9-25 GLUCOSE 147 mg/dL H 72-99 SODIUM 140 meq/L 136-145 POTASSIUM 4.2 meq/L 3.5-5 CHLORIDE 96 meq/L L 98-107 CARBON DIOXIDE 32 meq/L H 22-31 CALCIUM 9.3 mg/dL 8.4-10.4 EGFR (CKD-EPI 2020) 12 May 02, 2024 10:09 AM [place] [facility] LIPASE Specimen Type: PLASMA No comment entered. Ordering Provider: DARRYL COBURN Report Released Date/Time: May 02, 2024 10:01 AM Reporting Lab: [place] [facility] [address] [place] [address] Performing Lab: [place] [facility] [address] [place] [facility] [id number] LIPASE <4 U/L L 8-78 May 02, 2024 10:09 AM [place] [facility] URIC ACID Specimen Type: PLASMA No comment entered. Ordering Provider: DARRYL COBURN Report Released Date/Time: May 02, 2024 10:01 AM Reporting Lab: [place] [facility] [address] [place] [address] Performing Lab: [place] [facility] [address] [place] [address] URIC ACID 2.6 mg/dL L 3.5-7.2 May 02, 2024 10:09 AM [place] [facility] CBC Specimen Type: BLOOD No comment entered. Ordering Provider: DARRYL COBURN Report Released Date/Time: May 02, 2024 10:01 AM Reporting Lab: [place] [facility] [address] [place] [address] Performing Lab: [place] [facility] [address] [place] [address] WBC 7.2 10*3/uL 3.6-11.2 RBC 3.44 10*6/uL [...] 07, 2014 ADVANCE DIRECTIVE JUAN GILLETTE [facility] Radiology Reports: +/- 30 days of the [...] OR 6 MONTH FOLLOW UP: LEONARD LEWIS [id number] -1950 M Exm Date: MAY 02, 2024@11:47 Req Phys: GABRIELE WARREN W Pat Loc: PB-PHONE LUNG SCREEN (Req'g Lo Img Loc: PB-CT IMAGING Service: Unknown LUZ MARIA [place] [facility] JIMMY NAM [id number] (Case [id number] COMPLETE) LDCT LCS 1, 3 OR 6 MONTH FOLLOW U(CT Detailed) CPT:65777 Reason for Study: LCS 3 month f/u Clinical History: 01.30.2024 LRADS 4A; 5.5mm left lobe Smoking hx: 1.5ppd x 55 yrs; quit 2020 has dialysis M,W,F. Please schedule for / Report Status: Verified Date Reported: MAY 03, 2024 Date Verified: MAY 03, 2024 Salvage Supervisor E-Sig: Report: EXAM: LDCT LCS 1, 3 OR 6 MONTH FOLLOW UP ADDITIONAL HISTORY: N/A COMPARISON: CT chest 01/30/2024, 10/31/2023, 04/13/2020 PROTOCOL: Screening protocol, low dose, non-contrast CT chest was performed at the local [place] facility in accordance with Lung-Rads 2021. Additional coronal and sagittal reconstructions. MIP reconstructions were reviewed. 2181 images were received by the [place] National [...] atelectasis. READING PHYSICIAN: Luz Maria Alan M.D. -[id number] 05/03/2024 12:31 EDT [facility] National Teleradiology Program [phone] (For Medical Practitioner Use Only) Attention Patients / Veterans: If you have questions or concerns about these test results, please contact your ordering provider or primary care team. Primary Interpreting Staff: RADIOLOGY,OUTSIDE SERVICE, Staff Physician / RADIOLOGY,OUTSIDE SERVICE RICARDO MARQUEZ [facility] May 02, 2024 10:08 AM OBSTRUCTIVE SERIES : LEONARD LEWIS [id number] -1950 M Exm Date: MAY 02, 2024@10:08 Req Phys: DARRYL COBURN Loc: PB-CARLYN WALTON (Req'g Loc) Img Loc: PB-RADIOLOGY Service: Unknown LUZ MARIA [place] [facility] JIMMY NAM [id number] (Case [id number] COMPLETE) OBSTRUCTIVE SERIES (RAD Detailed) CPT:67534 Reason for Study: nausea, constipation for 6 weeks Clinical History: nausea, constipation for 6 weeks Report Status: Verified Date Reported: MAY 02, 2024 Date Verified: MAY 02, 2024 Salvage Supervisor E-Sig:/ES/RONI MCKEON Report: Obstructive series Chest reveals [...] calcification Primary Interpreting Staff: RONI MCKEON, RADIOLOGIST (Salvage Supervisor) /RONI Hi [facility] Encounter Notes: All associated encounter notes This section contains the clinical notes associated to the Encounter. Date/Time Encounter Note(s) Provider Source Apr 18, 2024 12:00 AM NONVA CONSULT: LOCAL TITLE: COMMUNITY CARE-CONSULT RESULT NOTE PB STANDARD TITLE: NONVA CONSULT DATE OF NOTE: APR 18, 2024 ENTRY DATE: APR 27, 2024@16:13:11 AUTHOR: ILENE RAJAN COSIGNER: URGENCY: STATUS: COMPLETED VistA Imaging - Scanned Document [id number] PULM- CLINIC NOTES SCANNED DOCUMENT SIGNATURE NOT REQUIRED Electronically Filed: 04/27/2024 by: ILENE PERALTA [facility]
--- OUTSIDE RECORDS SUMMARY | 2024-09-07 10:55 | XMS_ITS | Encounter Summary ---
Author Name [facility] Organization [facility] [place] Address [address] [place] [address] Care Team Providers Care Advertising Operations Manager Name Role Phone DRE ALEX Primary [...] PART B Mar 04, 2012 PART B [id number] [phone] LEONARD LEWIS PATIENT MEDICARE (WNR) MEDICARE (M) PART A Mar 04, 2012 PART A [id number] [phone] LEONARD LEWIS PATIENT MEDICARE (WNR) MEDICARE (M) PART A Mar 04, 2012 PART A [id number] LEONARD LEWIS PATIENT MEDICARE (WNR) MEDICARE (M) PART B Mar 04, 2012 PART B [id number] LEONARD LEWIS PATIENT MEDICARE (WNR) MEDICARE (M) PART A Mar 04, 2012 PART A [id number] [phone] LEONARD LEWIS PATIENT MEDICARE (WNR) MEDICARE (M) PART B Mar 04, 2012 PART B [id number] [phone] LEONARD LEWIS PATIENT -FO R-LIFE [facility] RE FOR LIFE WNR Aug 31, 2016 FOR LIFE [id number] LEONARD LEWIS PATIENT -FO R-LIFE [place] RE FOR LIFE WNR Aug 31, 2016 FOR LIFE [id number] [phone] LEONARD LEWIS PATIENT Selected Encounter This section includes the information on record at [place] for the Encounter. Date/Time Encounter Type Encounter Description Reason Provider Source Apr 16, 2024 10:20 AM PRO PHONE CALL 5-10 MIN TELEPHONE PRIMARY CARE ICD-10-CM Z71.89 Other specified counseling GE WALDRON [facility] Encounter Template Text not used by [place] Assessments - Encounter Diagnoses This section includes the primary and secondary diagnoses documented for the Encounter. Date/Time Primary/Secondary Diagnosis Diagnosis Name Provider Source Apr 16, 2024 10:20 AM PRIMARY Other specified counseling GE WALDRON [facility] Plan of Treatment: Future Appointments (+ 6 months) and Future Tests (+/- 45 days) The Plan of Treatment section includes future care activities for the patient from all [place] treatmentfacilities. This section includes future appointments and future orders which are active, pending or scheduled. Future Appointments This section includes appointments that were scheduled to occur 6 months from the date of the Encounter, up to a maximum of 20 appointments. The data comes from all [place] treatment facilities. Appointment Date/Time Appointment Type Appointme nt Facility Name Apr 18, 2024 01:40 PM AMBULATORY [place]IC[place] [facility] May 02, 2024 09:41 AM [facility] - [place]IC[place] [facility] May 02, 2024 01:00 PM AMBULATORY - NONE [place] [facility] May 10, 2024 01:30 PM [facility] [place]IC[place] [facility] May 23, 2024 09:00 AM AMBULATORY - MEDICINE [facility] May 30, 2024 09:00 AM AMBULATORY - MEDICINE [facility] Jun 11, 2024 11:30 AM AMBULATORY - NONE [place] [facility] Jul 04, 2024 08:30 AM AMBULATORY - MEDIC[place] [facility] Lab Results: +/- 30 days [...] May 02, 2024 10:09 AM [place] [facility] HEPATIC FUNCTION PROFILE (PB) Specimen Type: PLASMA No comment entered. Ordering Provider: DARRYL COBURN Report Released Date/Time: May 02, 2024 10:01 AM Reporting Lab: [place] [facility] [address] [place] [address] Performing Lab: [place] [facility] [address] [place] [address] PROTEIN 6.9 g/dL 6-8.6 ALBUMIN 4.2 g/dL 3.4-5 TOTAL BILIRUBIN 0.7 mg/dL 0.2-1.2 ALKALINE PHOSPHATASE 85 U/L 40-150 AST/SGOT 20 U/L 5-34 ALT/SGPT 27 U/L 8-40 CONJ. BILIRUBIN 0.3 mg/dL 0-0.5 May 02, 2024 10:09 [facility] MAGN[facility] Specimen Type: PLASMA No comment entered. Ordering Provider: DARRYL COBURN Report Released Date/Time: May 02, 2024 10:01 AM Reporting Lab: [place] [facility] [address] [place] [address] Performing Lab: [place] [facility] [address] [place] [address] MAGNESIUM 1.59 mg/dL L 1.6-2.6 May 02, 2024 10:09 AM [place] [facility] AMYLASE Specimen Type: PLASMA No comment entered. Ordering Provider: DARRYL COBURN Report Released Date/Time: May 02, 2024 10:01 AM Reporting Lab: [place] [facility] [address] [place] [address] Performing Lab: [place] [facility] [address] [place] [address] AMYLASE 47 U/L 25-125 May 02, 2024 10:09 AM [place] [facility] LIPASE Specimen Type: PLASMA No comment entered. Ordering Provider: DARRYL COBURN Report Released Date/Time: May 02, 2024 10:01 AM Reporting Lab: [place] [facility] [address] [place] [address] Performing Lab: [place] [facility] [address] [place] [address] LIPASE <4 U/L L 8-78 May 02, 2024 10:09 AM [place] [facility] BASIC METABOLIC PANEL Specimen Type: PLASMA No comment entered. Ordering Provider: DARRYL COBURN Report Released Date/Time: May 02, 2024 10:01 AM Reporting Lab: [place] [facility] [address] [place] [address] Performing Lab: [place] [facility] [address] [place] [address] CREATININE 4.65 mg/dL H 0.7-1.3 UREA NITROGEN 28 mg/dL H 9-25 GLUCOSE 147 mg/dL H 72-99 SODIUM 140 meq/L 136-145 POTASSIUM 4.2 meq/L 3.5-5 CHLORIDE 96 meq/L L 98-107 CARBON DIOXIDE 32 meq/L H 22-31 CALCIUM 9.3 mg/dL 8.4-10.4 EGFR (CKD-EPI 2020) 12 May 02, 2024 10:09 AM [facility] URIC ACID Specimen Type: PLASMA No comment entered. Ordering Provider: DARRYL COBURN Report Released Date/Time: May 02, 2024 10:01 AM Reporting Lab: [place] [facility] [address] [place] [address] Performing Lab: [place] [facility] [address] [place] [facility] URIC ACID 2.6 mg/dL L 3.5-7.2 May 02, 2024 10:09 AM [place] [facility] CBC Specimen Type: BLOOD No comment entered. Ordering Provider: BAZ,DARRYL O Report Released Date/Time: May 02, 2024 10:01 AM Reporting Lab: [place] [facility] [address] [place] [address] Performing Lab[facility] [place] [facility] [address] [place] [address] WBC 7.2 10*3/uL 3.6-11.2 RBC 3.44 10*6/uL [...] and tobacco- related health factors from the [place] facility where the Encounter took place. Current Smoking Status This section includes the most current smoking, or tobacco-related health factor, from the [place] facility where the Encounter took place. Date/Time Current Smoking Status Comment Bobbi kemp Apr 26, 2023 02:30 PM VA-TOBACCO FORMER USER [facility] Tobacco Use History This section includes a history of the smoking, or tobacco-related health factors, that were collected on or before the date of the Encounter. The data comes from the [facility] facility where the Encounter took place. Date/Time Smoking Status/Tobac co Use Comment Facility Apr 26, 2023 02:30 PM VA-TOBACCO QUIT 1 TO < 5 YRS [facility] May 26, 2022 09:00 AM VA-TOBACCO FORMER USER [facility] May 26, 2022 09:00 AM VA-TOBACCO QUIT 1 TO < 5 YRS [facility] May 06, 2021 10:30 AM VA-TOBACCO USE 30 YEARS OR MORE [facility] May 06, 2021 10:30 AM VA-TOBACCO USE ADVICE [facility] May 06, 2021 10:30 AM VA-TOBACCO USE APPLICATION DEVELOPMENT TEAM LEAD NO [facility] May 06, 2021 10:30 AM VA-TOBACCO USE MED NO [facility] May 06, 2021 10:30 AM VA-TOBACCO USE WI 30 MIN OF WAKEUP [facility] May 06, 2021 10:30 AM VA-TOBACCO USER EVERY DAY [facility] Oct 22, 2019 10:03 AM VA-TOBACCO USE 30 YEARS OR MORE [facility] Oct 22, 2019 10:03 AM VA-TOBACCO USE ADVICE [facility] Oct 22, 2019 10:03 AM VA-TOBACCO USE APPLICATION DEVELOPMENT TEAM LEAD NO [facility] Oct 22, 2019 10:03 AM VA-TOBACCO USE MED NO [facility] Oct 22, 2019 10:03 AM VA-TOBACCO USE WI 30 MIN OF WAKEUP [facility] Oct 22, 2019 10:03 AM VA-TOBACCO USER EVERY DAY [facility] Apr 18, 2019 10:01 AM CURRENT NON-TOBACC O USER-HX OF USE [facility] Apr 18, 2019 10:01 AM CURRENT TOBACCO USER [facility] Apr 18, 2019 10:01 AM VA-TOBACCO USE 30 YEARS OR MORE [facility] Apr 18, 2019 10:01 AM VA-TOBACCO USE ADVICE [facility] Apr 18, 2019 10:01 AM VA-TOBACCO USE APPLICATION DEVELOPMENT TEAM LEAD NO [facility] Apr 18, 2019 10:01 AM VA-TOBACCO USE MED NO [facility] Apr 18, 2019 10:01 AM VA-TOBACCO USE WI 30 MIN OF WAKEUP [facility] Apr 18, 2019 10:01 AM VA-TOBACCO USER EVERY DAY [facility] Mar 18, 2019 10:21 AM CURRENT TOBACCO USER [facility] Sep 18, 2018 09:56 AM CURRENT NON-TOBACC O USER-HX OF USE [facility] Jun 19, 2018 10:55 AM CURRENT TOBACCO USER [facility] Jun 19, 2018 10:55 AM CURRENT TOBACCO US ER (NOT READY TO QUIT) [facility] Jun 19, 2018 10:55 AM TOBACCO CESSATION REFERRAL DECLINED [facility] Jun 19, 2018 10:55 AM TOBACCO MEDS OFFER ED BUT DECLINED [facility] Jun 19, 2018 10:55 AM TOBACCO USER OFFERED MEDS [facility] Mar 13, 2018 11:20 AM CURRENT TOBACCO USER [facility] Mar 13, 2018 11:20 AM CURRENT TOBACCO US ER (NOT READY TO QUIT) [facility] Mar 13, 2018 11:20 AM TOBACCO CESSATION REFERRAL DECLINED [facility] Mar 13, 2018 11:20 AM TOBACCO MEDS OFFER ED BUT DECLINED [facility] Mar 13, 2018 11:20 AM TOBACCO USER OFFERED MEDS [facility] Oct 04, 2017 02:34 PM CURRENT TOBACCO USER [facility] Oct 04, 2017 02:34 PM CURRENT TOBACCO US ER (NOT READY TO QUIT) [facility] Oct 04, 2017 02:34 PM TOBACCO CESSATION REFERRAL DECLINED [facility] Oct 04, 2017 02:34 PM TOBACCO MEDS OFFER ED BUT DECLINED [facility] Oct 04, 2017 02:34 PM TOBACCO USER OFFERED MEDS [facility] Oct 02, 2015 11:06 AM QUIT TOBACCO >7 YEARS AGO [facility] Sep 08, 2014 09:56 AM CURRENT TOBACCO USER [facility] Sep 08, 2014 09:[address] [facility] Aug 21, 2013 08:15 AM CURRENT TOBACCO USER [facility] Aug 21, 2013 08:[address] [facility] January 23, 2012 02:12 PM CURRENT TOBACCO USER [facility] January 23, 2012 02:12 PM TOBACCO MEDS OFFER ED BUT DECLINED [facility] January 23, 2012 02:12 PM TOBACCO OFFERED PT MEDS (PROVIDER) [facility] January 23, 2012 02:[address] [facility] Jul 27, 2011 08:46 AM TOBACCO MEDS OFFER ED BUT DECLINED [facility] Jul 27, 2011 08:46 AM TOBACCO OFFERED PT MEDS (PROVIDER) [facility] Jul 27, 2011 08:[address] [facility] May 20, 2011 11:24 AM TOBACCO MEDS OFFER ED BUT DECLINED [facility] May 20, 2011 11:24 AM TOBACCO OFFERED PT MEDS (PROVIDER) [facility] May 20, 2011 11:[address] [facility] January 17, 2011 08:35 AM CURRENT TOBACCO USER [facility] January 17, 2011 08:[address] [facility] Jul 12, 2010 01:47 PM TOB INFO ON NON-VA STOP [facility]MOKING CLINIC will start smoking cessation classes 2010 [facility] Jul 12, 2010 01:47 PM TOBACCO MEDS OFFER ED BUT DECLINED [facility] Jul 12, 2010 01:47 PM TOBACCO OFFERED PT MEDS (PROVIDER) declined [facility] Jul 12, 2010 01:[address] [facility] will start smoking cessation classes, Sep 08, 2010 [facility] Dec 09, 2009 02:09 PM CURRENT TOBACCO USER [facility] Dec 09, 2009 02:09 PM TOBACCO OFFERED PT MEDS (PROVIDER) [facility] Dec 09, 2009 02:[address] [facility] Dec 09, 2009 02:09 PM TOBACCO OFFERRED P T MEDS (PROVIDER) [facility] Advance Directives: All historical and current Section Date Range: From patient's date of to the date document was created. This section includes ALL of a patient's completed or amended [place] Advance and Rescinded Directives. The entries below indicate that a directive exists for the patient, but an actual copy is not included with this document. The data comes from all [place] facilities. Date Advance Directives Provider Source May 07, 2014 ADVANCE DIRECTIVE JUAN GILLETTE [facility] Radiology Reports: +/- 30 days [...] the Encounter. The data comes from all [place] treatment facilities. Date/Time Radiology Report Provider Source May 02, 2024 11:47 AM LDCT LCS 1, 3 OR 6 MONTH FOLLOW UP: LEWIS,DOYLE GEE [id number] -[id number] M Exm Date: MAY 02, 2024@11:47 Req Phys: GABRIELE WARREN Pat Loc: PB-PHONE LUNG SCREEN (Req'g Lo Img Loc: PB-CT IMAGING Service: Unknown [facility] [place] [id number] (Case [id number] COMPLETE) LDCT LCS 1, 3 OR 6 MONTH FOLLOW U(CT Detailed) CPT:71070 Reason for Study: LCS 3 month f/u Clinical History: 01.30.2024 LRADS 4A; 5.5mm left lobe Smoking hx: 1.5ppd x 55 yrs; quit 2020 has dialysis M,W,F. Please schedule for / Report Status: Verified Date Reported: MAY 03, 2024 Date Verified: MAY 03, 2024 Architect Internship E-Sig: Report: EXAM: LDCT LCS 1, 3 OR 6 MONTH FOLLOW UP ADDITIONAL HISTORY: N/A COMPARISON: CT chest 01/30/2024, 10/31/2023, 04/13/2020 PROTOCOL: Screening protocol, low dose, non-contrast CT chest was performed at the local [place] facility in accordance with Lung-Rads 2. Additional coronal and sagittal reconstructions. MIP reconstructions were reviewed. 2181 images were received by the [place] National Teleradiology Program (NTP) for interpretation. RADIATION [...] up to 3 mm (LUNG-RADS 2 per 202 criteria). RECOMMENDATION: [address] follow-up, if patient meets screening criteria. LUNG-RADS MODIFIER: S: Findings unrelated to lung cancer. Consolidation in the left lower lobe adjacent to pleural thickening/effusion with associated parenchymal bands and volume loss is also not significantly changed compared with October 2023, favored to reflect atelectasis. READING PHYSICIAN: Luz Maria Alan M.D. -[id number] 05/03/2024 12:31 EDT [facility] National Teleradiology Program [phone] (For Medical Practitioner Use Only) Attention Patients / Veterans: If you have questions or concerns about these test results, please contact your ordering provider or primary care team. Primary Interpreting Staff: RADIOLOGY,OUTSIDE SERVICE, Staff Physician / RADIOLOGY,OUTSIDE SERVICE [facility] May 02, 2024 10:08 AM OBSTRUCTIVE SERIES : LEONARD LEWIS [id number] -[id number] M Exm Date: MAY 02, 2024@10:08 Req Phys: DARRYL COBURN Pat Loc: PB-CARLYN [place]AL[place] (Req'g Loc) Img Loc: PB-RADIOLOGY Service: Unknown [facility] [place] [id number] (Case [id number] COMPLETE) OBSTRUCTIVE SERIES (RAD Detailed) CPT:16460 Reason for Study: nausea, constipation for 6 weeks Clinical History: nausea, constipation for 6 weeks Report Status: Verified Date Reported: MAY 02, 2024 Date Verified: MAY 02, 2024 Architect Internship E-Sig:/ES/RONI MCKEON Report: Obstructive series Chest reveals [...] calcification Primary Interpreting Staff: RONI MCKEON, RADIOLOGIST (Architect Internship) /RONI Hi [facility] Encounter Notes: All associated encounter notes This section contains the clinical notes associated to the Encounter. Date/Time Encounter Note(s) Provider Source Apr 16, 2024 10:20 AM TELEPHONE ENCOUNTE R NOTE: LOCAL TITLE: TELEPHONE NOTE STANDARD TITLE: TELEPHONE ENCOUNTER NOTE DATE OF NOTE: APR 16, 2024@10:20 ENTRY DATE: APR 16, 2024@10:20:38 AUTHOR: GE WALDRON COSIGNER: URGENCY: STATUS: COMPLETED Dola's Doug called to inform PACT team that Dola had a watchman device placed almost 2 months ago and was placed on clopidogrel 75mg daily. Doug states he will need to be on this medication for a minimum of 6-8 weeks and will be reassessed by ceramist at next appt. Doug is wanting to receive mediation through the [place] mail program and was wanting to see if PACT PCP would order it. Doug states a 1 month supply will get them through till cardiology appt and They have a approx. 1-2 week supply left. Advised Doug Provider would be alerted to this and she would be notified of any further recommendations. Doug voiced understanding and all questions and concerns addressed at this time. /sepideh/ Ge Waldron SALES AND EVENTS COORDINATOR [facility] Signed: 04/16/2024 10:30 Receipt Acknowledged By: 04/16/2024 22:16 /es/ GE ERICKSON MD [facility]
--- OUTSIDE RECORDS SUMMARY | 2024-09-07 10:55 | XMS_ITS | Encounter Summary ---
Author Name [facility] Address [address] [place] [address] Care Team Providers Care Ginger Farmer Name Role Phone DRE ALEX Primary Care [...] PART B Mar 04, 2012 PART B [id number] [phone] LEONARD LEWIS PATIENT MEDICARE (WNR) MEDICARE (M) PART A Mar 04, 2012 PART A [id number] [phone] LEONARD LEWIS PATIENT MEDICARE (WNR) MEDICARE (M) PART A Mar 04, 2012 PART A [id number] [phone] LEONARD LEWIS PATIENT MEDICARE (WNR) MEDICARE (M) PART B Mar 04, 2012 PART B [id number] [phone] LEONARD LEWIS PATIENT MEDICARE (WNR) MEDICARE (M) PART A Mar 04, 2012 PART A [id number] LEONARD LEWIS PATIENT MEDICARE (WNR) MEDICARE (M) PART B Mar 04, 2012 PART B [id number] [phone] LEONARD LEWIS PATIENT -FO R-LIFE TRICA RE FOR LIFE WNR Aug 31, 2016 FOR LIFE [id number] [phone] LEONARD LEWIS PATIENT -FO R-LIFE TRICA RE FOR LIFE WNR Aug 31, 2016 FOR LIFE [id number] [phone] LEONARD LEWIS PATIENT Selected Encounter This section includes the information on record at ME for the Encounter. Date/Time Encounter Type Encounter Description Reason Pro vider Source May 02, 2024 09:41 AM Outpatient Encounter URGENT CARE IHE Encounter Template Text not used by ME Plan of Treatment: Future Appointments (+ 6 months) and Future Tests (+/- 45 days) The Plan of Treatment section includes future care activities for the patient from all [place] treatmentfacilities. This section includes future appointments and future orders which are active, pending or scheduled. Future Appointments This section includes appointments that were scheduled to occur 6 months from the date of the Encounter, up to a maximum of 20 appointments. The data comes from all [place] treatment facilities. Appointment Date/Time Appointment Type Appointme nt Facility Name May 10, 2024 01:30 PM [facility] [place]IC[place] [facility] May 23, 2024 09:00 AM AMBULATORY - MEDICINE [facility] May 30, 2024 09:00 AM AMBULATORY - MEDICINE [facility] Jun 11, 2024 11:30 AM AMBULATORY - NONE [place] [facility] Jul 04, 2024 08:30 AM [facility] - [place]IC[place] [facility] Oct 30, 2024 03:00 PM AMBULATORY - [place]IC[place] [facility] Lab Results: +/- 30 days of the encounter This section includes the Chemistry and Hematology Lab Results on record with [place] for the patient. Radiology Reports and Pathology Reports are provided separately, in subsequent sections. Lab Results This section contains the Chemistry/Hematology Results that were resulted 30 days before or 30 daysafter the date of the Encounter. Date/Time Source Result Type Result - Unit Interpretation Reference Range Comment May 23, 2024 09:01 AM [facility] URIC ACID Specimen Type: PLASMA No comment entered. Ordering Provider: DRE ALEX Report Released Date/Time: May 30, 2023 11:59 AM Reporting Lab: [place] [facility] [address] [place] [address] Performing Lab: [place] [facility] [address] [place] [address] URIC ACID 2.4 mg/dL L 3.5-7.2 May 23, 2024 09:01 AM [facility] B12 Specimen Type: SERUM No comment entered. Ordering Provider: DRE ALEX Report Released Date/Time: May 30, 2023 11:59 AM Reporting Lab: [place] [facility] [address] [place] [address] Performing Lab: [place] [facility] [address] [place] [address] B12 770 pg/mL 213-816 May 23, 2024 09:01 AM [facility] HGA1C Specimen Type: BLOOD No comment entered. Ordering Provider: DRE ALEX Report Released Date/Time: May 30, 2023 11:59 AM Reporting Lab: [place] [facility] [address] [place] [address] Performing Lab: [place] [facility] [address] [place] [address] HGA1C 5.7 4.0-6.0 May 23, 2024 09:01 AM [facility] FOLATE (PB) Specimen Type: SERUM No comment entered. Ordering Provider: DRE ALEX Report Released Date/Time: May 30, 2023 11:59 AM Reporting Lab: [place] [facility] [address] [place] [address] Performing Lab: [place] [facility] [address] [place] [address] FOLATE (PB) 17.3 ng/mL 7-20 May 23, 2024 09:01 AM [facility] CHOLESTEROL PANEL (PB) Specimen Type: PLASMA No comment entered. Ordering Provider: DRE ALEX Report Released Date/Time: May 30, 2023 11:59 AM Reporting Lab: [place] [facility] [address] [place] [address] Performing Lab: [place] [facility] [address] [place] [address] CHOLESTEROL 81 mg/dL 0-200 TRIGLYCERIDE 115 mg/dL 0-150 CALCULATED LDL 20.7 mg/dL HDL(New) 37.3 mg/dL L >40 HDL % OF TOTAL CHOLESTEROL (PB) 46.0 >25 May 23, 2024 09:01 AM [facility] VITAMIN D, 25-HYDROXY Specimen Type: SERUM No comment entered. Ordering Provider: DRE ALEX Report Released Date/Time: May 30, 2023 11:59 AM Reporting Lab: [place] [facility] [address] [place] [address] Performing Lab: [place] [facility] [address] [place] [address] VITAMIN D, 25-HYDROXY 75.0 ng/mL 30-96 May 23, 2024 09:01 AM [facility] TSH (MA-PB) Specimen Type: SERUM No comment entered. Ordering Provider: DRE ALEX Report Released Date/Time: May 30, 2023 11:59 AM Reporting Lab: [place] [facility] [address] [place] [address] Performing Lab: [place] [facility] [address] [place] [address] TSH 1.732 u[IU]/mL 0.47-5 May 23, 2024 09:01 AM [facility] URINE ALBUMIN PROFILE-ih (PB) Specimen Type: URINE No comment entered. Ordering Provider: DRE ALEX Report Released Date/Time: May 30, 2023 11:59 AM Reporting Lab: [place] [facility] [address] [place] [address] Performing Lab: [place] [facility] [address] [place] [address] URINE ALBUMIN (PB-STL) 131.70 mg/L H 0-30 uACR (PB-MA) 398.73 ug/mg CREATININE URINE/OTHERS 33.03 mg/dL May 23, 2024 09:01 AM [facility] COMPREHENSIVE METABOLIC PANEL Specimen Type: PLASMA No comment entered. Ordering Provider: RDE ALEX Report Released Date/Time: May 30, 2023 11:59 AM Reporting Lab: [place] [facility] [address] [place] [address] Performing Lab: [place] [facility] [address] [place] [address] CREATININE 4.38 mg/dL H 0.7-1.3 UREA NITROGEN 27 mg/dL H 9-25 GLUCOSE 113 mg/dL H 72-99 SODIUM 141 meq/L 136-145 POTASSIUM 4.3 meq/L 3.5-5 CHLORIDE 97 meq/L L 98-107 CARBON DIOXIDE 34 meq/L H 22-31 CALCIUM 9.4 mg/dL 8.4-10.4 PROTEIN 7.0 g/dL 6-8.6 ALBUMIN 4.3 g/dL 3.4-5 TOTAL BILIRUBIN 0.7 mg/dL 0.2-1.2 ALKALINE PHOSPHATASE 103 U/L 40-150 AST/SGOT 50 U/L H 5-34 ALT/SGPT 69 U/L H 8-40 EGFR (CKD-EPI 2020) 13 May 23, 2024 09:01 AM [facility] CBC Specimen Type: BLOOD No comment entered. Ordering Provider: DRE ALEX Report Released Date/Time: May 30, 2023 11:59 AM Reporting Lab: [place] [facility] [address] [place] [address] Performing Lab: [place] [facility] [address] [place] [address] WBC 6.8 10*3/uL 3.6-11.2 RBC 3.66 10*6/uL L 4.10-5.70 HGB 11.0 g/dL L 13.1-16.8 HCT 35.1 L 38.2-48.4 MCV 95.9 fL 80.0-100.0 MCH 30.1 pg 27.0-34.0 MCHC 31.3 g/dL L 33.0-36.0 PLT 171 10*3/uL 150-400 MPV 11.1 fL 7.5-11.2 RDW 14.3 11.8-15.1 LYMPHOCYTES, AUTO % 17.4 MONOCYTES, AUTO % 8.0 NEUTROPHILS, AUTO % 70.3 EOSINOPHILS, AUTO % 2.7 BASOPHILS, AUTO % 1.3 LYMPHOCYTES, ABSOLUTE 1.18 10*3/uL 0.77-4.50 MONOCYTES, ABSOLUTE 0.54 10*3/uL 0.19-0.8 NEUTROPHILS, ABSOLUTE 4.77 10*3/uL 2.10-8.00 EOSINOPHILS, ABSOLUTE 0.18 10*3/uL 0.00-0.60 BASOPHILS, ABSOLUTE 0.09 10*3/uL 0.00-0.20 IMMATURE GRANS, AUTO % 0.3 IMMATURE GRANS, AUTO ABS 0.02 10*3/uL 0.00-0.05 May 23, 2024 09:01 AM [facility] FERRITIN Specimen Type: SERUM No comment entered. Ordering Provider: DRE ALEX Report Released Date/Time: Mar 12, 2024 04:29 PM Reporting Lab: [place] [facility] [address] [place] [address] Performing Lab: [place] [facility] [address] [place] [address] FERRITIN 2584 ng/mL H 22-275 May 23, 2024 09:01 AM [facility] IRON/TIBC PROFILE Specimen Type: PLASMA No comment entered. Ordering Provider: DRE ALEX Report Released Date/Time: Mar 12, 2024 04:29 PM Reporting Lab: [place] [facility] [address] [place] [address] Performing Lab: [place] [facility] [address] [place] [address] TIBC 220 mg/dL TRANSFERRIN 176 mg/dL 163-344 IRON SATURATION 30 20-50 IRON 67 ug/dL 65-175 May 02, 2024 10:09 AM [place] [facility] HEPATIC FUNCTION PROFILE (PB) Specimen Type: PLASMA No comment entered. Ordering Provider: MELINDA COBURN Report Released Date/Time: May 02, 2024 10:01 AM Reporting Lab: [place] [facility] [address] [place] [address] Performing Lab: [place] [facility] [address] [place] [address] PROTEIN 6.9 g/dL 6-8.6 ALBUMIN 4.2 g/dL 3.4-5 TOTAL BILIRUBIN 0.7 mg/dL 0.2-1.2 ALKALINE PHOSPHATASE 85 U/L 40-150 AST/SGOT 20 U/L 5-34 ALT/SGPT 27 U/L 8-40 CONJ. BILIRUBIN 0.3 mg/dL 0-0.5 May 02, 2024 10:09 AM [place] [facility] MAGNESIUM Specimen Type: PLASMA No comment entered. Ordering Provider: MELINDA COBURN Report Released Date/Time: May 02, 2024 10:01 AM Reporting Lab: [place] [facility] [address] [place] [address] Performing Lab: [place] [facility] [address] [place] [address] MAGNESIUM 1.59 mg/dL L 1.6-2.6 May 02, 2024 10:09 AM [place] [facility] LIPASE Specimen Type: PLASMA No comment entered. Ordering Provider: MELINDA COBURN Report Released Date/Time: May 02, 2024 10:01 AM Reporting Lab: [place] [facility] [address] [place] [address] Performing Lab: [place] [facility] [address] [place] [address] LIPASE <4 U/L L 8-78 May 02, 2024 10:09 AM [place] [facility] AMYLASE Specimen Type: PLASMA No comment entered. Ordering Provider: MELINDA COBURN Report Released Date/Time: May 02, 2024 10:01 AM Reporting Lab: [place] [facility] [address] [place] [address] Performing Lab: [place] [facility] [address] [place] [address] AMYLASE 47 U/L 25-125 May 02, 2024 10:09 AM [place] [facility] BASIC METABOLIC PANEL Specimen Type: PLASMA No comment entered. Ordering Provider: MELINDA COBURN Report Released Date/Time: May 02, 2024 10:01 AM Reporting Lab: [place] [facility] [address] [place] [address] Performing Lab: [place] [facility] [address] [place] [address] CREATININE 4.65 mg/dL H 0.7-1.3 UREA NITROGEN 28 mg/dL H 9-25 GLUCOSE 147 mg/dL H 72-99 SODIUM 140 meq/L 136-145 POTASSIUM 4.2 meq/L 3.5-5 CHLORIDE 96 meq/L L 98-107 CARBON DIOXIDE 32 meq/L H 22-31 CALCIUM 9.3 mg/dL 8.4-10.4 EGFR (CKD-EPI 2020) 12 May 02, 2024 10:09 AM [facility] [facility] URIC ACID Specimen Type: PLASMA No comment entered. Ordering Provider: MELINDA COBURN Report Released Date/Time: May 02, 2024 10:01 AM Reporting Lab: [place] [facility] [address] [place] [address] Performing Lab: [place] [facility] [address] [place] [address] URIC ACID 2.6 mg/dL L 3.5-7.2 May 02, 2024 10:09 AM [facility] CBC Specimen Type: BLOOD No comment entered. Ordering Provider: MELINDA COBURN Report Released Date/Time: May 02, 2024 10:01 AM Reporting Lab: [place] [facility] [address] [place] [address] Performing Lab: [place] [facility] [address] [place] [address] WBC 7.2 10*3/uL 3.6-11.2 RBC 3.44 10*6/uL [...] ALL of a patient's completed or amended [place] Advance and Rescinded Directives. The entries below indicate that a directive exists for the patient, but an actual copy is not included with this document. The data comes from all [place] facilities. Date Advance Directives Provider Source May 07, 2014 ADVANCE DIRECTIVE [facility] Radiology Reports: +/- 30 days of [...] the Encounter. The data comes from all [place] treatment facilities. Date/Time Radiology Report Provider Source May 30, 2024 10:23 AM OBSTRUCTIVE SERIES : LEONARD LEWIS [id number] -1950 M Exm Date: MAY 30, 2024@10:23 Req Phys: DRE ALEX Loc: PB-JT PACT [place] PCP (Aleksandar'g L Img Loc: PB-XRAY [place] Service: [place] [address] (Case [id number] COMPLETE) OBSTRUCTIVE SERIES (RAD Detailed) CPT:14625 Reason for Study: nausea vomiting Clinical History: x2 months, csardiac work up neg Report Status: Verified Date Reported: MAY 30, 2024 Date Verified: MAY 30, 2024 Silver Buffer E-Sig: Report: Obstructive series Reveals emphysematous changes. Findings left lung base and left costophrenic angle similar previous study. Heart normal size. Plaque thoracic aorta. Postop changes. Pacemaker. Old healed right rib fractures. Supine and erect KUB reveals nonobstructive bowel gas pattern with large amount of bowel gas and fecal debris throughout most of the colon. Constipation should be considered. No pneumoperitoneum. Postop changes right upper quadrant and left lower quadrant. Major soft tissue organs are obscured by the overlying bowel gas and fecal debris. No evidence of pneumoperitoneum. Degenerative change involving spine, sacroiliac joints and hip joints. Plaque in the aorta, splenic artery and right renal artery and iliac arteries. Impression: 1. COPD 2. Findings left lung base persist having the appearance of pneumonia and effusion with associated pleural thickening. Associated scarring cannot be ruled out 3. Nonobstructive bowel gas pattern with large amount bowel gas and fecal debris in the colon. Constipation should be considered 4. Postop changes right upper quadrant left lower quadrant 5. Recommend follow-up CT scan of the chest. If symptoms do not improve recommend CT scan of the abdomen and pelvis and GI consult Primary Interpreting Staff: RONI MCKEON, RADIOLOGIST (Silver Buffer, no e-sig) /rashaad RONI MCKEON [facility] May 02, 2024 11:47 AM LDCT LCS 1, 3 OR 6 MONTH FOLLOW UP: LEONARD LEWIS [id number] -1950 M Exm Date: MAY 02, 2024@11:47 Req Phys: GABRIELE WARREN Loc: PB-PHONE LUNG SCREEN (Req'g Lo Img Loc: PB-CT IMAGING Service: Unknown LUZ MARIA [place] [facility] [place] [id number] (Case [id number] COMPLETE) LDCT LCS 1, 3 OR 6 MONTH FOLLOW U(CT Detailed) CPT:20092 Reason for Study: LCS 3 month f/u Clinical History: 01.30.2024 LRADS 4A; 5.5mm left lobe Smoking hx: 1.5ppd x 55 yrs; quit 2020 [place] has dialysis M,W,F. Please schedule for / Report Status: Verified Date Reported: MAY 03, 2024 Date Verified: MAY 03, 2024 Silver Buffer E-Sig: Report: EXAM: LDCT LCS 1, 3 OR 6 MONTH FOLLOW UP ADDITIONAL HISTORY: N/A COMPARISON: CT chest 01/30/2024, 10/31/2023, 04/13/2020 PROTOCOL: Screening protocol, low dose, non-contrast CT chest was performed at the local [place] facility in accordance with Lung-Rads 2022. Additional coronal and sagittal reconstructions. MIP reconstructions were reviewed. 2181 images were received by the [place] National Teleradiology Program (NTP) for interpretation. RADIATION [...] atelectasis. READING PHYSICIAN: Luz Maria Alan M.D. -[phone] 05/03/2024 12:31 EDT [facility] National Teleradiology Program [phone] (For Medical Practitioner Use Only) Attention Patients / Veterans: If you have questions or concerns about these test results, please contact your ordering provider or primary care team. Primary Interpreting Staff: RADIOLOGY,OUTSIDE SERVICE, Staff Physician / RADIOLOGY,OUTSIDE SERVICE RICARDO BONILLA [facility] May 02, 2024 10:08 AM OBSTRUCTIVE SERIES : LEONARD LEWIS GEE [id number] -1950 M Exm Date: MAY 02, 2024@10:08 Req Phys: DARRYL COBURN Loc: PB-CARLYN [place] (Req'g Loc) Img Loc: PB-RADIOLOGY Service: Unknown [place] [address] (Case [id number] COMPLETE) OBSTRUCTIVE SERIES (RAD Detailed) CPT:75483 Reason for Study: nausea, constipation for 6 weeks Clinical History: nausea, constipation for 6 weeks Report Status: Verified Date Reported: MAY 02, 2024 Date Verified: MAY 02, 2024 Silver Buffer E-Sig:/ES/RONI MCKEON Report: Obstructive series Chest reveals [...] calcification Primary Interpreting Staff: RONI MCKEON, RADIOLOGIST (Silver Buffer) /RONI Hi [facility] Encounter Notes: All associated encounter notes This section contains the clinical notes associated to the Encounter. Date/Time Encounter Note(s) Provider Source May 02, 2024 11:19 AM EDUCATION NOTE: LOCAL TITLE: AFTER VISIT SUMMARY STANDARD TITLE: EDUCATION NOTE DICT DATE: MAY 02, 2024@11:19:26 ENTRY DATE: MAY 02, 2024@11:19:26 DICTATED BY: DARRYL COBUNR EXP COSIGNER: URGENCY: STATUS: COMPLETED The patient was provided with a copy of an after-visit summary at the conclusion of the visit. The after-visit summary includes information pertaining to the patient's encounter, including diagnoses, vital signs, medications, and new orders, as well as a list of any upcoming appointments and information regarding the patient's ongoing care. The patient and/or family/caregiver was provided education on the pain management plan of care. The patient's medications were reviewed with the patient by the provider and were provided to the patient as an updated list of medications. The patient was instructed to inform the provider of any medication changes or discrepancies that were noted. Otherwise, the patient was instructed to continue the medications as prescribed. A copy of the after-visit summary provided to the patient is available in [facility]. SCANNED DOCUMENT SIGNATURE NOT REQUIRED Electronically Filed: 05/02/2024 by: ROLAND MERCADO [facility] DARRYL COBURN [facility]
--- OUTSIDE RECORDS SUMMARY | 2024-09-07 10:55 | XMS_ITS | Encounter Summary ---
Author Name [facility] Organization [facility] Address [address] [place] [id number] Care Team Providers Care Product Development Manager Name Role Phone DRE ALEX Primary [...] PART B Mar 04, 2012 PART B [id number] [phone] LEONARD LEWIS PATIENT MEDICARE (WNR) MEDICARE (M) PART A Mar 04, 2012 PART A [id number] [phone] LEONARD LEWIS PATIENT MEDICARE (WNR) MEDICARE (M) PART A Mar 04, 2012 PART A [id number] JOSHUAYLE PATIENT MEDICARE (WNR) MEDICARE (M) PART B Mar 04, 2012 PART B [id number] [phone] LEONARD LEWIS PATIENT MEDICARE (WNR) MEDICARE (M) PART A Mar 04, 2012 PART A [id number] LEONARD LEWIS PATIENT MEDICARE (WNR) MEDICARE (M) PART B Mar 04, 2012 PART B [id number] LEONARD LEWIS PATIENT -FO R-LIFE TRICA RE FOR LIFE WNR Aug 31, 2016 FOR LIFE [id number] LEONARD LEWIS PATIENT -FO R-LIFE TRICA RE FOR LIFE WNR Aug 31, 2016 FOR LIFE [id number] [phone] LEONARD LEWIS PATIENT Selected Encounter This section includes the information on record at DC for the Encounter. Date/Time Encounter Type Encounter Description Reason Provider Source May 02, 2024 09:41 AM OFFICE O/P EST MOD 30 MIN URGENT CARE ICD-10-CM R11.0 Nausea BAZ,DARRYL O IHE Encounter Template Text not used by DC Assessments - Encounter Diagnoses This section includes the primary and secondary diagnoses documented for the Encounter. Date/Time Primary/Secondary Diagnosis Diagnosis Name Provider Source May 02, 2024 11:25 AM PRIMARY Nausea BAZ,DARRYL O [place] [facility] May 02, 2024 11:25 AM SECONDARY Constipation, unspecified BAZ,DARRYL O [place] [facility] May 02, 2024 11:25 AM SECONDARY Dependence on renal dialysis BAZ,DARRYL O [place] [facility] May 02, 2024 11:25 AM SECONDARY Pneumonia, unspecified organism BAZ,DARRYL O [place] [facility] Plan of Treatment: Future Appointments [...] PM AMBULATORY - MEDICINE [place] [facility] May 23, 2024 09:00 AM AMBULATORY - MEDICINE [facility] May 30, 2024 09:00 AM [facility] Jun 11, 2024 11:30 AM AMBULATORY - NONE [place] [facility] Jul 04, 2024 08:30 AM [facility] - [place]IC[place] [facility] Oct 30, 2024 03:00 PM AMBULATORY - MEDIC[place] [facility] Lab Results: +/- 30 days [...] Range Comment May 23, 2024 09:01 AM [facility] URIC ACID Specimen Type: PLASMA No comment entered. Ordering Provider: DRE ALEX Report Released Date/Time: May 30, 2023 11:59 AM Reporting Lab: [place] [facility] [address] [place] [address] Performing Lab: [place] [facility] [address] [place] [address] URIC ACID 2.4 mg/dL L 3.5-7.2 May 23, 2024 09:01 AM [facility] B12 Specimen Type: SERUM No comment entered. Ordering Provider: DRE ALEX Report Released Date/Time: May 30, 2023 11:59 AM Reporting Lab: [place] [facility] [address] [place] [address] Performing Lab: [place] [facility] [address] [place] [address] B12 770 pg/mL 213-816 May 23, 2024 09:01 AM [facility] FOLATE (PB) Specimen Type: SERUM No comment entered. Ordering Provider: DRE ALEX Report Released Date/Time: May 30, 2023 11:59 AM Reporting Lab: [place] [facility] [address] [place] [address] Performing Lab: [place] [facility] [address] [place] [address] FOLATE (PB) 17.3 ng/mL 7-20 May 23, 2024 09:01 AM [facility] HGA1C Specimen Type: BLOOD No comment entered. Ordering Provider: DRE ALEX Report Released Date/Time: May 30, 2023 11:59 AM Reporting Lab: [place] [facility] [address] [place] [address] Performing Lab: [place] [facility] [address] [place] [address] HGA1C 5.7 4.0-6.0 May 23, 2024 09:01 AM [facility] VITAMIN D, 25-HYDROXY Specimen Type: SERUM No comment entered. Ordering Provider: DRE ALEX Report Released Date/Time: May 30, 2023 11:59 AM Reporting Lab: [place] [facility] [address] [place] [address] Performing Lab: [place] [facility] [address] [place] [address] VITAMIN D, 25-HYDROXY 75.0 ng/mL 30-96 May 23, 2024 09:01 AM [facility] TSH (MA-PB) Specimen Type: SERUM No comment entered. Ordering Provider: DRE ALEX Report Released Date/Time: May 30, 2023 11:59 AM Reporting Lab: [place] [facility] [address] [place] [address] Performing Lab: [place] [facility] [address] [place] [address] TSH 1.732 u[IU]/mL 0.47-5 May 23, 2024 09:01 AM [facility] URINE ALBUMIN PROFILE-ih (PB) Specimen Type: URINE No comment entered. Ordering Provider: DRE ALEX Report Released Date/Time: May 30, 2023 11:59 AM Reporting Lab: [place] [facility] [address] [place] [address] Performing Lab: [place] [facility] [address] [place] [address] URINE ALBUMIN (PB-STL) 131.70 mg/L H 0-30 uACR (PB-MA) 398.73 ug/mg CREATININE URINE/OTHERS 33.03 mg/dL May 23, 2024 09:01 AM [facility] CHOLESTEROL PANEL (PB) Specimen Type: PLASMA No comment entered. Ordering Provider: DRE ALEX Report Released Date/Time: May 30, 2023 11:59 AM Reporting Lab: [place] [facility] [address] [place] [address] Performing Lab: [place] [facility] [address] [place] [address] CHOLESTEROL 81 mg/dL 0-200 TRIGLYCERIDE 115 mg/dL 0-150 CALCULATED LDL 20.7 mg/dL HDL(New) 37.3 mg/dL L >40 HDL % OF TOTAL CHOLESTEROL (PB) 46.0 >25 May 23, 2024 09:01 AM [facility] COMPREHENSIVE METABOLIC PANEL Specimen Type: PLASMA No comment entered. Ordering Provider: DRE ALEX Report Released Date/Time: May 30, 2023 11:59 AM Reporting Lab: [place] [facility] [address] [place] [address] Performing Lab: [place] [facility] [address] [place] [address] CREATININE 4.38 mg/dL H 0.7-1.3 UREA NITROGEN [...] 23, 2024 09:01 AM [facility] CBC Specimen Type: BLOOD No comment entered. Ordering Provider: DRE ALEX Report Released Date/Time: May 30, 2023 11:59 AM Reporting Lab: [place] [facility] [address] [place] [address] Performing Lab: [place] [facility] [address] [place] [address] WBC 6.8 10*3/uL 3.6-11.2 RBC 3.66 10*6/uL [...] 10*3/uL 0.00-0.05 May 23, 2024 09:01 AM [facility] FERRITIN Specimen Type: SERUM No comment entered. Ordering Provider: DRE ALEX Report Released Date/Time: Mar 12, 2024 04:29 PM Reporting Lab: [place] [facility] [address] [place] [address] Performing Lab: [place] [facility] [address] [place] [address] FERRITIN 2584 ng/mL H 22-275 May 23, 2024 09:01 AM [facility] IRON/TIBC PROFILE Specimen Type: PLASMA No comment entered. Ordering Provider: DRE ALEX Report Released Date/Time: Mar 12, 2024 04:29 PM Reporting Lab: [place] [facility] [address] [place] [address] Performing Lab: [place] [facility] [address] [place] [address] TIBC 220 mg/dL TRANSFERRIN 176 mg/dL 163-344 IRON SATURATION 30 20-50 IRON 67 ug/dL 65-175 May 02, 2024 10:09 AM [place] [facility] MAGNESIUM Specimen Type: PLASMA No comment entered. Ordering Provider: MELINDA COBURN Report Released Date/Time: May 02, 2024 10:01 AM Reporting Lab: [place] [facility] [address] [place] [address] Performing Lab: [place] [facility] [address] [place] [address] MAGNESIUM 1.59 mg/dL L 1.6-2.6 May 02, 2024 10:09 AM [facility] (PB) Specimen Type: PLASMA No comment entered. Ordering Provider: MELINDA COBURN Report Released Date/Time: May 02, 2024 10:01 AM Reporting Lab: [place] [facility] [address] [place] [address] Performing Lab: [place] [facility] [address] [place] [address] PROTEIN 6.9 g/dL 6-8.6 ALBUMIN 4.2 g/dL 3.4-5 TOTAL BILIRUBIN 0.7 mg/dL 0.2-1.2 ALKALINE PHOSPHATASE 85 U/L 40-150 AST/SGOT 20 U/L 5-34 ALT/SGPT 27 U/L 8-40 CONJ. BILIRUBIN 0.3 mg/dL 0-0.5 May 02, 2024 10:09 AM [place] [facility] AMYLASE Specimen Type: PLASMA No comment entered. Ordering Provider: MELINDA COBURN Report Released Date/Time: May 02, 2024 10:01 AM Reporting Lab: [place] [facility] [address] [place] [address] Performing Lab: [place] [facility] [address] [place] [address] AMYLASE 47 U/L 25-125 May 02, 2024 10:09 AM [place] [facility] LIPASE Specimen Type: PLASMA No comment entered. Ordering Provider: MELINDA COBURN Report Released Date/Time: May 02, 2024 10:01 AM Reporting Lab: [place] [facility] [address] [place] [address] Performing Lab: [place] [facility] [address] [place] [address] LIPASE <4 U/L L 8-78 May 02, 2024 10:09 AM [place] [facility] URIC ACID Specimen Type: PLASMA No comment entered. Ordering Provider: MELINDA COBURN Report Released Date/Time: May 02, 2024 10:01 AM Reporting Lab: [place] [facility] [address] [place] [address] Performing Lab: [place] [facility] [address] [place] [address] URIC ACID 2.6 mg/dL L 3.5-7.2 May 02, 2024 10:09 AM [facility] METABOLIC PANEL Specimen Type: PLASMA No comment entered. Ordering Provider: MELINDA COBURN Report Released Date/Time: May 02, 2024 10:01 AM Reporting Lab: [place] [facility] [address] [place] [address] Performing Lab: [place] [facility] [address] [place] [address] CREATININE 4.65 mg/dL H 0.7-1.3 UREA NITROGEN 28 mg/dL H 9-25 GLUCOSE 147 mg/dL H 72-99 SODIUM 140 meq/L 136-145 POTASSIUM 4.2 meq/L 3.5-5 CHLORIDE 96 meq/L L 98-107 CARBON DIOXIDE 32 meq/L H 22-31 CALCIUM 9.3 mg/dL 8.4-10.4 EGFR (CKD-EPI 2020) 12 May 02, 2024 10:09 AM [place] [facility] CBC Specimen Type: BLOOD No comment entered. Ordering Provider: MELINDA COBURN Report Released Date/Time: May 02, 2024 10:01 AM Reporting Lab: [place] [facility] [address] [place] [address] Performing Lab: [place] [facility] [address] [place] [place] [address] WBC 7.2 10*3/uL 3.6-11.2 RBC 3.44 10*6/uL [...] IMMATURE GRANS, AUTO ABS 0.03 10*3/uL 0.00-0.05 Vital Signs: All taken on the encounter date This section contains inpatient and outpatient Vital Signs collected on the date of the Encounter. Date/Time Temperature Pulse Blood Pressure Respiratory Rate SP02 Pain Height Weight Body Mass Index Source May 02, 2024 09:49 AM 97.7 66 122/62 18 0 180 28 [facility] Social History: Smoking Status (Most current) and Tobacco Use (All prior to encounter date) This section includes the most current, and the historical, smoking and tobacco- related health factors from the DC facility where the Encounter took place. Current Smoking Status This section includes the most current smoking, or tobacco-related health factor, from the [place] facility where the Encounter took place. Date/Time Current Smoking Status Comment Facil ity Jun 15, 2011 02:49 PM TOBACCO OFFERED PT MEDS (PROVIDE R) [place] [facility] Tobacco Use History This section includes a history of the smoking, or tobacco-related health factors, that were collected on or before the date of the Encounter. The data comes from the DC facility where the Encounter took place. Date/Time Smoking Status/Tobacco Use Comment F acility Jun 15, 2011 02:49 PM TOBACCO OFFERED PT MEDS (PROVIDE R) [facility] Jun 15, 2011 02:[address] OP SMOKING CLINIC [facility] Advance Directives: All historical and current Section [...] May 07, 2014 ADVANCE DIRECTIVE JUAN GILLETTE [facility] Radiology Reports: +/- 30 days of [...] 10:23 AM OBSTRUCTIVE SERIES : LEONARD LEWIS [id number] -1950 M Exm Date: MAY 30, 2024@10:23 Req Phys: DRE ALEX Pat Loc: PB-JT PACT DELTA PCP (Req'g L Img Loc: PB-XRAY [place] Service: [place] [address] (Case [id number] COMPLETE) OBSTRUCTIVE SERIES (RAD Detailed) CPT:48959 Reason for Study: nausea vomiting Clinical History: x2 months, csardiac work up neg Report Status: Verified Date Reported: MAY 30, 2024 Date Verified: MAY 30, 2024 Rubber Flap Tuber Machine Operator E-Sig: Report: Obstructive series Reveals emphysematous changes. [...] consult Primary Interpreting Staff: RONI MCKEON, RADIOLOGIST (Rubber Flap Tuber Machine Operator, no e-sig) /RONI Hi [facility] May 02, 2024 11:47 AM LDCT LCS 1, 3 OR 6 MONTH FOLLOW UP: LEONARD LEWIS [id number] -1950 M Ex Date: MAY 02, 2024@11:47 Req Phys: GABRIELE WARREN Loc: PB-PHONE LUNG SCREEN (Req'g Lo Img Loc: PB-CT IMAGING Service: Unknown [facility] [place] [facility] [place] [address] (Case [id number] COMPLETE) LDCT LCS 1, 3 OR 6 MONTH FOLLOW U(CT Detailed) CPT:36689 Reason for Study: LCS 3 month f/u Clinical History: 01.30.2024 LRADS 4A; 5.5mm left lobe Smoking hx: 1.5ppd x 55 yrs; quit 2020 [place] has dialysis M,W,F. Please schedule for / Report Status: Verified Date Reported: MAY 03, 2024 Date Verified: MAY 03, 2024 Rubber Flap Tuber Machine Operator E-Sig: Report: EXAM: LDCT LCS 1, 3 OR 6 MONTH FOLLOW UP ADDITIONAL HISTORY: N/A COMPARISON: CT chest 01/30/2024, 10/31/2023, 04/13/2020 PROTOCOL: Screening protocol, low dose, non-contrast CT chest was performed at the local [place] facility in accordance with Lung-Rads 2022. Additional [...] atelectasis. READING PHYSICIAN: Luz Maria Alan M.D. -[phone] 05/03/2024 12:31 EDT [facility] National Teleradiology Program [phone] (For Medical Practitioner Use Only) Attention Patients / Veterans: If you have questions or concerns about these test results, please contact your ordering provider or primary care team. Primary Interpreting Staff: RADIOLOGY,OUTSIDE SERVICE, Staff Physician / RADIOLOGY,OUTSIDE SERVICE [facility] May 02, 2024 10:08 AM OBSTRUCTIVE SERIES : LEONARD LEWIS [id number] -1950 M Exm Date: MAY 02, 2024@10:08 Req Phys: DARRYL COBURN Loc: PB-CARLYN [place] (Req'g Loc) Img Loc: PB-RADIOLOGY Service: Unknown [facility] [facility] [place] [address] (Case [id number] COMPLETE) OBSTRUCTIVE SERIES (RAD Detailed) CPT:05693 Reason for Study: nausea, constipation for 6 weeks Clinical History: nausea, constipation for 6 weeks Report Status: Verified Date Reported: MAY 02, 2024 Date Verified: MAY 02, 2024 Rubber Flap Tuber Machine Operator E-Sig:/ES/RONI MCKEON Report: Obstructive series Chest reveals [...] calcification Primary Interpreting Staff: RONI MCKEON, RADIOLOGIST (Rubber Flap Tuber Machine Operator) /RONI Hi [facility] Encounter Notes: All associated encounter notes This section contains the clinical notes associated to the Encounter. Date/Time Encounter Note(s) Provider Source May 02, 2024 09:54 AM URGENT CARE NOTE: LOCAL TITLE: URGENT CARE PROVIDER GENERAL NOTE PB STANDARD TITLE: URGENT CARE NOTE DATE OF NOTE: MAY 02, 2024@09:54 ENTRY DATE: MAY 02, 2024@09:54:52 AUTHOR: DARRYL COBURN EXP COSIGNER: URGENCY: STATUS: COMPLETED Chief Complaint: Nausea, dry heaving intermittently for 6 weeks HISTORY OF PRESENT ILLNESS: LEONARD LEWIS is a 74 years old WHITE MALE came into urgent care here today with complaints of having nausea without vomiting that has been occurring intermittently for the past 6 weeks. Patient has end-stage renal disease on hemodialysis. His last dialysis was yesterday. He was told to check his gallbladder. Patient stated that he is status post cholecystectomy. Patient also has been having intermittent constipation. He denies any coughing, fever, no chills. PAST MEDICAL HISTORY: 1) DM - Diabetes mellitus 2) Hearing Loss, Sensorineural, Combined Types 3) Tinnitus, NOS 4) Leg Pain 5) Hyperlipidemia 6) Chronic obstructive airway disease 7) Pain in Joint, site unspecified 8) Gout 9) Acute prostatitis 10) Renal mass comment: Left nephrectomy comment: Patient his transplant team. 11) Pancreatitis 12) Biliary calculus 13) Primary malignant neoplasm of kidney comment: History of left nephrectomy comment: Patient is on the inactive transplant for kidney list. 14) Malignant tumor of urinary bladder 15) H/O: TIA 16) Dizziness 17) Essential hypertension 18) Chronic pancreatitis comment: per note by Dr. Mckinney of [facility] 19) 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 heart failure comment: Dialysis 20) History of partial nephrectomy 21) History of appendectomy 22) History of cholecystectomy 23) Multiple acquired kidney cysts comment: Right kidney, only one kidney (left is removed nephrectomy) 24) Dependence on renal dialysis comment: Patient is using private insurance, nephrology consultations have comment: [facility] 25) Peripheral vascular disease comment: Carotids bilaterally 10/2022 = nothing significant less than 50%. comment: 03/27/2023, at [facility] no evidence of significant arterial insuffici 26) Elderly fall comment: Fracture/pneumonia versus pulmonary contusion on CT scan08/2022 comment: CT scan 10/2022resolution of concern of consolidation pneumonia v 27) CAD - Coronary Artery Disease (SCT [id number]) comment: CABG anticipated at [facility], positive angiogram 28) H/O: Stroke (SCT [id number]) comment: 2010, equilibrium affected / dizziness 29) ldct sc rng comment: fu due 11/2023 comment: = fu in 3 months 01/31/24 comment: 01/2024 - recommends fu in 3 months agian and PULMONARY consult fo 30) elevated ferritin 31) Cardiac defibrillator in situ comment: placed 04/21/23 32) Hemorrhagic cystitis 33) Aortic aneurysm screening normal comment: Moderate, [facility], atherosclerosis noted, 03/27/2023 34) Urinary tract infectious disease comment: uti, pneumonia, covid, staph strrep = picc line abx 35) disabilty plates comment: 05/2023 36) Anemia 37) Exposure to potentially hazardous substance 38) Hypoglycemia comment: in am bs = 50 ,took too much insulin per 39) Mood disorder with depressive features due to general medical condition 40) s/p left adrenectomy 41) pleural thickening of the bronchi comment: pulmonary consult 42) watchman placed ALLERGIES: Patient has answered NKA MEDICATIONS: 1) ACCU-CHEK GUIDE (GLUCOSE) TEST STRIP USE 1 STRIP FOR ACTIVE BLOOD TEST FOUR TIMES A DAY FOR BLOOD SUGAR MONITORING 2) ALLOPURINOL 100MG TAB TAKE TWO TABLETS BY MOUTH ONCE ACTIVE A DAY FOR GOUT TAKE WITH PLENTY OF WATER. 3) ASCORBIC ACID 500MG TAB TAKE TWO TABLETS BY MOUTH ACTIVE ONCE A DAY FOR VITAMIN SUPPLEMENTATION. 4) ASPIRIN 81MG EC TAB TAKE ONE TABLET BY MOUTH ONCE A ACTIVE DAY FOR HEART OR CIRCULATION. TAKE WITH FOOD. 5) ATORVASTATIN CALCIUM 80MG TAB TAKE ONE-HALF TABLET BY ACTIVE MOUTH EVERY EVENING FOR HIGH CHOLESTEROL 6) BUPROPION HCL 300MG 24HR SA TAB TAKE ONE TABLET BY ACTIVE MOUTH ONCE A DAY FOR DEPRESSION SWALLOW WHOLE - DO NOT CRUSH OR CHEW. 7) CARVEDILOL 25MG TAB TAKE ONE-HALF TABLET BY MOUTH ACTIVE TWICE A DAY FOR HIGH BLOOD PRESSURE TAKE WITH FOOD. 8) CHOLECALCIF 50MCG (D3-2,000UNIT) TAB TAKE ONE TABLET ACTIVE (S) BY MOUTH ONCE A DAY FOR VITAMIN D SUPPLEMENTATION 9) COLCHICINE 0.6MG TAB TAKE ONE-HALF TABLET BY MOUTH ACTIVE TWO TIMES PER WEEK FOR GOUT (STOP MED AND CONTACT PROVIDER AT FIRST SIGN OF NAUSEA, VOMITING OR DIARRHEA) 10) CREON 12,000UNIT EC CAP TAKE 3 CAPSULES BY MOUTH ACTIVE THREE TIMES A DAY BEFORE MEALS FOR PANCREATIC INSUFFICIENCY TAKE WITH FOOD DIRECTED. 11) FERROUS SULFATE 325MG TAB TAKE ONE TABLET BY MOUTH ACTIVE (S) TWICE A DAY FOR IRON DEFICIENCY ANEMIA 12) INSULIN,ASPART(EQV-NOVLG)100 UN/ML FLXPEN INJECT 12 ACTIVE UNITS UNDER THE SKIN THREE TIMES A DAY BEFORE MEALS FOR BLOOD SUGAR CONTROL. ADMINISTER 10 MINUTES BEFORE FOOD DIRECTED. REFRIGERATE UN-OPENED PENS. DISCARD CARTRIDGE 28 DAYS AFTER OPENING. 13) INSULIN,GLARGINE-YFGN 100UNIT/ML PEN 3ML INJECT 20 ACTIVE UNITS UNDER THE SKIN ONCE A DAY FOR BLOOD SUGAR CONTROL. ADMINISTER AT SAME TIME EACH DAY DIRECTED. DISCARD ANY OPEN CARTRIDGE AFTER 28 DAYS. 14) LIDOCAINE 2.5/PRILOCAINE 2.5% CREAM APPLY LIGHTLY TO ACTIVE AFFECTED AREA(S) DIRECTED NEEDED BEFORE NEEDLE STICK 15) MIDODRINE HCL 5MG TAB TAKE ONE TABLET BY MOUTH THREE ACTIVE TIMES A DAY FOR LOW BLOOD PRESSURE/DIZZINESS. 16) OMEPRAZOLE 20MG EC CAP TAKE ONE CAPSULE BY MOUTH HOLD EVERY MORNING BEFORE A MEAL TO LOWER STOMACH ACID. TAKE 30 MINUTES PRIOR TO FOOD. 17) OXYBUTYNIN CHLORIDE 5MG TAB TAKE ONE TABLET BY MOUTH ACTIVE THREE TIMES A DAY NEEDED FOR BLADDER 18) PANTOPRAZOLE NA 40MG EC TAB TAKE ONE TABLET BY MOUTH ACTIVE EVERY MORNING BEFORE A MEAL FOR GASTROESOPHAGEAL REFLUX DISEASE TAKE 30 MINUTES BEFORE MEAL(S) 19) RENAL MULTIVIT W/1MG OR LESS FA TAB TAKE 1 TABLET BY ACTIVE MOUTH ONCE A DAY FOR NUTRITION/DIETARY SUPPLEMENTATION 20) SEVELAMER CARBONATE 800MG TAB TAKE THREE TABLETS BY ACTIVE MOUTH THREE TIMES A DAY WITH MEAL(S) FOR HYPERPHOSPHATEMIA. TAKE WITH FOOD. 21) SODIUM BICARBONATE 650MG TAB TAKE ONE TABLET BY MOUTH ACTIVE FOUR TIMES A DAY FOR DIALYSIS 22) TAMSULOSIN HCL 0.4MG CAP TAKE TWO CAPSULES BY MOUTH ACTIVE EVERY EVENING FOR BENIGN PROSTATIC HYPERPLASIA APPROXIMATELY 30 MINUTES AFTER THE SAME MEAL EACH DAY (FOR PROSTATE) Inactive Outpatient Medications Status 1) ACETAMINOPHEN 325MG TAB TAKE TWO TABLETS BY MOUTH FOUR TIMES A DAY NEEDED FOR PAIN CAUTION: DO NOT EXCEED 4000MG PER DAY ACETAMINOPHEN (APAP) FROM ALL MEDS. 2) ALBUTEROL 90MCG (CFC-F) 200D ORAL INHL INHALE 2 PUFFS ORAL INHALATION FOUR TIMES A DAY NEEDED FOR COPD SHAKE WELL. RINSE MOUTHPIECE FREQUENTLY TO PREVENT CLOGGING. 3) CLOPIDOGREL BISULFATE 75MG TAB TAKE ONE TABLET BY MOUTH ONCE A DAY PHYSICAL EXAMINATION: BP: 122/62 P: 66 R: 18 WT: 180 T: 97.7 HT: 180 lb [81.65 kg] (05/02/2024 09:49) 97% (05/30/2023 09:19) He is conscious, alert, coherent, not in respiratory distress. Skin: no diaphoresis HEENT: no icterisiae. Dry oral mucosa. Neck: supple Lungs: Harsh to auscultation bilaterally. No rhonchi noted. There is no wheezing. No crackles Heart: regular in rate and rhythm Abd: soft, normoactive bowel sounds, no tenderness, no distention Neuro: no focal neurologic deficits LABORATORIES: CBC: WBC 7.2 HGB 10.8 L g/dL HCT 33.6 L % PLT 171 10*3/uL NEUTROPHILS, AUTO % 74.3 % LYMPHOCYTES, AUTO % 15.2 % WBC 8.5 10*3/uL 12/27/2022 13:30 HGB 10.0 L g/dL 12/27/2022 13:30 HCT 32.2 L % 12/27/2022 13:30 PLT 279 10*3/uL 12/27/2022 13:30 NEUTROPHILS, AUTO % 58.6 % 12/27/2022 13:30 LYMPHOCYTES, AUTO % 16.6 % 12/27/2022 13:30 BASIC METABOLIC PANEL: LIPASE <4 L SODIUM 140 POTASSIUM 4.2 CHLORIDE 96 L UREA NITROGEN 28 H CREATININE 4.65 H CALCIUM 9.3 MAGNESIUM 1.59 L PROTEIN 6.9 AMYLASE 47 ALBUMIN 4.2 ALKALINE PHOSPHATASE 85 ALT/SGPT 27 AST/SGOT 20 TOTAL BILIRUBIN 0.7 CONJ. BILIRUBIN 0.3 CARBON DIOXIDE 32 H GLUCOSE 147 H URIC ACID 2.6 L EGFR (CKD-EPI 2020) 12 SODIUM 142 mEq/L 02/22/2024 08:14 POTASSIUM 4.2 mEq/L 02/22/2024 08:14 CHLORIDE 96 L mEq/L 02/22/2024 08:14 UREA NITROGEN 31 H mg/dL 02/22/2024 08:14 CREATININE 5.13 H mg/dL 02/22/2024 08:14 CALCIUM 9.2 mg/dL 02/22/2024 08:14 CARBON DIOXIDE 34 H mEq/L 02/22/2024 08:14 GLUCOSE 101 H mg/dL 02/22/2024 08:14 EGFR (CKD-EPI 2020) 11 02/22/2024 08:14 HEPATIC FUNCTION PROFILE: AKP: 98 (02/22/24 08:14) ALB: 4.0 (02/22/24 08:14) D.BILI: 0.2 (05/23/23 09:15) GOT/AST: 16 (02/22/24 08:14) GPT/ALT: 28 (02/22/24 08:14) T.Prot: 6.7 (02/22/24 08:14) TBIL: 0.6 (02/22/24 08:14) OBSTRUCTIVE SERIES Exm Date: MAY 02, 2024@10:08 Report: Obstructive series Chest reveals small left [...] right renal artery versus right renal calcification ASSESSMENT: 1. Nausea. Question of uremia symptoms 2. Constipation 3. Pneumonia PLANS: Patient will be prescribed the following medications: 1) AZITHROMYCIN 250MG TAB TAKE TWO TABLETS BY MOUTH EVERY DAY FOR 1 DAY, THEN TAKE ONE TABLET EVERY DAY FOR 4 DAYS 2) CEFDINIR 300MG CAP TAKE ONE CAPSULE BY MOUTH ONCE A DAY 3) ONDANSETRON 4MG ORAL DISINTEGRATING TAB TAKE ONE TABLET UNDER THE TONGUE EVERY EIGHT(8) HOURS NEEDED 4) POLYETHYLENE GLYCOL 3350 ORAL PWDR MIX AND DRINK 1 CAPFUL BY MOUTH ONCE A DAY NEEDED Repeat chest x-ray next week. Follow-up with his primary care physician for further evualuation and management if condition is not better. May return to Urgent Care if there is worsening. Please note that this dictation was completed with computer recognition software, often unanticipated grammatical, syntax and other interpretive errors are inadvertently transcribed by the computer software. Please disregard these errors. /es/ DARRYL Montilla [facility] Signed: 05/02/2024 11:24 DARRYL COBURN [facility] May 02, 2024 09:48 AM URGENT CARE TRIAGE NOTE: LOCAL TITLE: URGENT CARE DEPARTMENT TRIAGE NOTE STANDARD TITLE: URGENT CARE TRIAGE NOTE DATE OF NOTE: MAY 02, 2024@09:48 ENTRY DATE: MAY 02, 2024@09:48:28 AUTHOR: OVIDIO ROTHMAN COSIGNER: URGENCY: STATUS: COMPLETED URGENT CARE DEPARTMENT TRIAGE NOTE Has ADDENDA Emergency Department/Urgent Care Center Triage Patient age:74 Sex: MALE On arrival patient was: AMBULATORY Patient phone number: Allergies: Patient has answered NKA Subjective/Chief Complaint: dry heaving off and on for 6 weeks, increased weakness Objective: The patient is a fall risk. Intervention: pt placed on stretcher BP: P: R: WT: T: HT: Temperature 97.7 F (36.5 C) Pulse 66 Respirations 18 Blood Pressure 122/62 Pain scale recorded: 0 Pulse Oximetry 98 Room Air Weight 180 lb (81.8 kg) Sepsis Screening Evaluation Emergency Severity Index (CANDY) level Level 3 Current Medications: Active Outpatient Medications (including Supplies): Active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
--- OUTSIDE RECORDS SUMMARY | 2024-09-07 10:56 | XMS_ITS | Encounter Summary ---
Author Name [facility] [place] [facility] [place] Address [address] [place] [address] Care Team Providers Care Cripple Chaser Name Role Phone DRE ALEX Primary Care [...] PART B Mar 04, 2012 PART B [id number] [phone] ALONSO DELGADO PATIENT MEDICARE (WNR) MEDICARE (M) PART A Mar 04, 2012 PART A [id number] ALONSO DELGADO PATIENT MEDICARE (WNR) MEDICARE (M) PART A Mar 04, 2012 PART A [id number] ALONSO DELGADO PATIENT MEDICARE (WNR) MEDICARE (M) PART B Mar 04, 2012 PART B [id number] [phone] ALONSO DELGADO PATIENT MEDICARE (WNR) MEDICARE (M) PART A Mar 04, 2012 PART A [id number] ALONSO DELGADO PATIENT MEDICARE (WNR) MEDICARE (M) PART B Mar 04, 2012 PART B [id number] ALONSO DELGADO PATIENT -FO R-LIFE TRICA RE FOR LIFE WNR Aug 31, 2016 FOR LIFE [id number] ALONSO DELGADO PATIENT -FO R-LIFE TRICA RE FOR LIFE WNR Aug 31, 2016 FOR LIFE [id number] [phone] ALONSO DELGADO PATIENT Selected Encounter This section includes the information on record at [place] for the Encounter. Date/Time Encounter Type Encounter Description Reason Provider Source May 10, 2024 01:30 PM Outpatient Encounter TELEPHONE/MEDICIN E ICD-10-CM G47.33 Obstructive sleep apnea (adult) (pediatric) MIREYA RAJAN E Encounter Template Text not used by [place] Assessments - Encounter Diagnoses This section includes the primary and secondary diagnoses documented for the Encounter. Date/Time Primary/Secondary Diagnosis Diagnosis Name Provider Source May 10, 2024 01:30 PM PRIMARY Obstructive sleep apnea (adult) (pediatric) MIREYA RAJAN [facility] Plan of Treatment: Future Appointments (+ 6 [...] Appointment Type Appointme nt Facility Name May 23, 2024 09:00 AM AMBULATORY - MEDICINE [facility] May 30, 2024 09:00 AM AMBULATORY - MEDICINE [facility] Jun 11, 2024 11:30 AM AMBULATORY - NONE [place] [facility] Jul 04, 2024 08:30 AM AM[facility] - MEDICINE [place] [facility] Oct 30, 2024 03:00 PM [facility] Lab Results: +/- 30 days of the [...] Range Comment May 23, 2024 09:01 AM [facility] URIC ACID Specimen Type: PLASMA No comment entered. Ordering Provider: DRE ALEX Report Released Date/Time: May 30, 2023 11:59 AM Reporting Lab: [place] [facility] [address] [place] [address] Performing Lab: [place] [facility] [address] [place] [address] URIC ACID 2.4 mg/dL L 3.5-7.2 May 23, 2024 09:01 AM [facility] FOLATE (PB) Specimen Type: SERUM No comment entered. Ordering Provider: DRE ALEX Report Released Date/Time: May 30, 2023 11:59 AM Reporting Lab: [place] [facility] [address] [place] [address] Performing Lab: [place] [facility] [address] [place] [address] FOLATE (PB) 17.3 ng/mL 7-20 May 23, 2024 09:01 AM [facility] B12 Specimen Type: SERUM No comment entered. Ordering Provider: DRE ALXE Report Released Date/Time: May 30, 2023 11:59 AM Reporting Lab: [place] [facility] [address] [place] [address] Performing Lab: [place] [facility] [address] [place] [address] B12 770 pg/mL 213-816 May 23, 2024 09:[address] [facility] HGA1C Specimen Type: BLOOD No comment entered. Ordering Provider: DRE ALEX Report Released Date/Time: May 30, 2023 11:59 AM Reporting Lab: [place] [facility] [address] [place] [address] Performing Lab: [place] [facility] [address] [place] [address] HGA1C 5.7 4.0-6.0 May 23, 2024 09:[address] [facility] TSH (MA-PB) Specimen Type: SERUM No comment entered. Ordering Provider: DRE ALEX Report Released Date/Time: May 30, 2023 11:59 AM Reporting Lab: [place] [facility] [address] [place] [address] Performing Lab: [place] [facility] [address] [place] [address] TSH 1.732 u[IU]/mL 0.47-5 May 23, 2024 09:[address] [facility] CHOLESTEROL PANEL (PB) Specimen Type: PLASMA No comment entered. Ordering Provider: DRE ALEX Report Released Date/Time: May 30, 2023 11:59 AM Reporting Lab: [place] [facility] [address] [place] [address] Performing Lab: [place] [facility] [address] [place] [id number] CHOLESTEROL 81 mg/dL 0-200 TRIGLYCERIDE 115 mg/dL 0-150 CALCULATED LDL 20.7 mg/dL HDL(New) 37.3 mg/dL L >40 HDL % OF TOTAL CHOLESTEROL (PB) 46.0 >25 May 23, 2024 09:[address] [facility] VITAMIN D, 25-HYDROXY Specimen Type: SERUM No comment entered. Ordering Provider: DRE ALEX Report Released Date/Time: May 30, 2023 11:59 AM Reporting Lab: [place] [facility] [address] [place] [address] Performing Lab: [place] [facility] [address] [place] [address] VITAMIN D, 25-HYDROXY 75.0 ng/mL 30-96 May 23, 2024 09:[address] [facility] URINE ALBUMIN PROFILE-ih (PB) Specimen Type: URINE No comment entered. Ordering Provider: DRE ALEX Report Released Date/Time: May 30, 2023 11:59 AM Reporting Lab: [place] [facility] [address] [place] [address] Performing Lab: [place] [facility] [address] [place] [address] URINE ALBUMIN (PB-STL) 131.70 mg/L H 0-30 uACR (PB-MA) 398.73 ug/mg CREATININE URINE/OTHERS 33.03 mg/dL May 23, 2024 09:01 AM [facility] COMPREHENSIVE METABOLIC PANEL Specimen Type: PLASMA No comment entered. Ordering Provider: DRE ALEX Report Released Date/Time: May 30, 2023 11:59 AM Reporting Lab: [place] [facility] [address] [place] [address] Performing Lab: [place] [facility] [address] [place] [address] CREATININE 4.38 mg/dL H 0.7-1.3 UREA NITROGEN [...] 2020) 13 May 23, 2024 09:01 AM [facility] CBC Specimen Type: BLOOD No comment entered. Ordering Provider: DRE ALEX Report Released Date/Time: May 30, 2023 11:59 AM Reporting Lab: [place] [facility] [address] [place] [address] Performing Lab: [place] [facility] [address] [place] [facility] WBC 6.8 10*3/uL 3.6-11.2 RBC 3.66 10*6/uL [...] 10*3/uL 0.00-0.05 May 23, 2024 09:[address] [facility] FERRITIN Specimen Type: SERUM No comment entered. Ordering Provider: DRE ALEX Report Released Date/Time: Mar 12, 2024 04:29 PM Reporting Lab: [place] [facility] [address] [place] [address] Performing Lab: [place] [facility] [address] [place] [address] FERRITIN 2584 ng/mL H 22-275 May 23, 2024 09:[address] [facility] IRON/TIBC PROFILE Specimen Type: PLASMA No comment entered. Ordering Provider: DRE ALEX Report Released Date/Time: Mar 12, 2024 04:29 PM Reporting Lab: [place] [facility] [address] [place] [address] Performing Lab: [place] [facility] [address] [place] [address] TIBC 220 mg/dL TRANSFERRIN 176 mg/dL 163-344 IRON SATURATION 30 20-50 IRON 67 ug/dL 65-175 May 02, 2024 10:09 AM [place] [facility] MAGNESIUM Specimen Type: PLASMA No comment entered. Ordering Provider: MELINDA COBURN Report Released Date/Time: May 02, 2024 10:01 AM Reporting Lab: [place] [facility] [address] [place] [address] Performing Lab: [place] [facility] [address] [place] [address] MAGNESIUM 1.59 mg/dL L 1.6-2.6 May 02, 2024 10:09 AM [place] [facility] HEPATIC FUNCTION PROFILE (PB) Specimen Type: PLASMA No comment entered. Ordering Provider: MELINDA COBURN Report Released Date/Time: May 02, 2024 10:01 AM Reporting Lab: [place] [facility] [address] [place] [address] Performing Lab: [place] [facility] [address] [place] [address] PROTEIN 6.9 g/dL 6-8.6 ALBUMIN 4.2 g/dL 3.4-5 TOTAL BILIRUBIN 0.7 mg/dL 0.2-1.2 ALKALINE PHOSPHATASE 85 U/L 40-150 AST/SGOT 20 U/L 5-34 ALT/SGPT 27 U/L 8-40 CONJ. BILIRUBIN 0.3 mg/dL 0-0.5 May 02, 2024 10:09 AM [place] [facility] LIPASE Specimen Type: PLASMA No comment entered. Ordering Provider: MELINDA COBURN Report Released Date/Time: May 02, 2024 10:01 AM Reporting Lab: [place] [facility] [address] [place] [address] Performing Lab: [place] [facility] [address] [place] [address] LIPASE <4 U/L L 8-78 May 02, 2024 10:09 AM [place] [facility] AMYLASE Specimen Type: PLASMA No comment entered. Ordering Provider: MELINDA COBURN Report Released Date/Time: May 02, 2024 10:01 AM Reporting Lab: [place] [facility] [address] [place] [address] Performing Lab: [place] [facility] [address] [place] [address] AMYLASE 47 U/L 25-125 May 02, 2024 10:09 AM [place] [facility] BASIC METABOLIC PANEL Specimen Type: PLASMA No comment entered. Ordering Provider: MELINDA COBURN Report Released Date/Time: May 02, 2024 10:01 AM Reporting Lab: [place] [facility] [address] [place] [address] Performing Lab: [place] [facility] [address] [place] [address] CREATININE 4.65 mg/dL H 0.7-1.3 UREA NITROGEN 28 mg/dL H 9-25 GLUCOSE 147 mg/dL H 72-99 SODIUM 140 meq/L 136-145 POTASSIUM 4.2 meq/L 3.5-5 CHLORIDE 96 meq/L L 98-107 CARBON DIOXIDE 32 meq/L H 22-31 CALCIUM 9.3 mg/dL 8.4-10.4 EGFR (CKD-EPI 2020) 12 May 02, 2024 10:09 AM [place] [facility] URIC ACID Specimen Type: PLASMA No comment entered. Ordering Provider: MELINDA COBURN Report Released Date/Time: May 02, 2024 10:01 AM Reporting Lab: [place] [facility] [address] [place] [address] Performing Lab: [place] [facility] [address] [place] [address] URIC ACID 2.6 mg/dL L 3.5-7.2 May 02, 2024 10:09 AM [facility] Specimen Type: BLOOD No comment entered. Ordering Provider: MELINDA COBURN Report Released Date/Time: May 02, 2024 10:01 AM Reporting Lab: [place] [facility] [address] [place] [address] Performing Lab: [place] [facility] [address] [place] [address] WBC 7.2 10*3/uL 3.6-11.2 RBC 3.44 10*6/uL [...] and tobacco- related health factors from the [place] facility where the Encounter took place. Current Smoking Status This section includes the most current smoking, or tobacco-related health factor, from the [place] facility where the Encounter took place. Date/Time Current Smoking Status Comment Facil ity Jun 15, 2011 02:49 PM TOBACCO OFFERED PT MEDS (PROVIDE R) [facility] Tobacco Use History This section includes a history of the smoking, or tobacco-related health factors, that were collected on or before the date of the Encounter. The data comes from the [place] facility where the Encounter took place. Date/Time Smoking Status/Tobacco Use Comment F acility Jun 15, 2011 02:49 PM [facility]BACCO [facility] Jun 15, 2011 02:[address] OP SMOKING CLINIC [facility] Advance Directives: All historical and current Section [...] Provider Source May 07, 2014 ADVANCE DIRECTIVE LETAJUAN SILVA [facility] [facility] [place] [facility] Radiology Reports: +/- 30 days of the [...] 30, 2024 10:23 AM OBSTRUCTIVE SERIES : ALONSO DELGADO [facility] [id number] -1950 M Exm Date: MAY 30, 2024@10:23 Req Phys: DRE ALEX Loc: PB-JT PACT DELTA PCP (Req'g L Img Loc: PB-XRAY [place] Service: [place] [address] (Case [id number] COMPLETE) OBSTRUCTIVE SERIES (RAD Detailed) CPT:95926 Reason for Study: nausea vomiting Clinical History: x2 months, csardiac work up neg Report Status: Verified Date Reported: MAY 30, 2024 Date Verified: MAY 30, 2024 Church Worker E-Sig: Report: Obstructive series Reveals emphysematous changes. [...] consult Primary Interpreting Staff: RONI MCKEON, RADIOLOGIST (Church Worker, no e-sig) /RONI Hi [facility] May 02, 2024 11:47 AM LDCT LCS 1, 3 OR 6 MONTH FOLLOW UP: ALONSO DELGADO [id number] -1950 M Exm Date: MAY 02, 2024@11:47 Req Phys: GABRIELE WARREN Pat Loc: PB-PHONE LUNG SCREEN (Req'g Lo Img Loc: PB-CT IMAGING Service: Unknown [facility] [place] [address] (Case [id number] COMPLETE) LDCT LCS 1, 3 OR 6 MONTH FOLLOW U(CT Detailed) CPT:83404 Reason for Study: LCS 3 month f/u Clinical History: 01.30.2024 LRADS 4A; 5.5mm left lobe Smoking hx: 1.5ppd x 55 yrs; quit 2020 [place] has dialysis M,W,F. Please schedule for / Report Status: Verified Date Reported: MAY 03, 2024 Date Verified: MAY 03, 2024 Church Worker E-Sig: Report: EXAM: LDCT LCS 1, 3 OR 6 MONTH FOLLOW UP ADDITIONAL HISTORY: N/A COMPARISON: CT chest 01/30/2024, 10/31/2023, 04/13/2020 PROTOCOL: Screening protocol, low dose, non-contrast CT chest was performed at the local [place] facility in accordance with Lung-Rads 2022. Additional coronal and sagittal reconstructions. MIP reconstructions were reviewed. 2181 images were received by the [place] National T[facility] (NTP) for interpretation. RADIATION [...] atelectasis. READING PHYSICIAN: Luz Maria Alan M.D. -[phone] 05/03/2024 12:31 EDT [facility] National Teleradiology Program [phone] (For Medical Practitioner Use Only) Attention Patients / Veterans: If you have questions or concerns about these test results, please contact your ordering provider or primary care team. Primary Interpreting Staff: RADIOLOGY,OUTSIDE SERVICE, Staff Physician / RADIOLOGY,OUTSIDE SERVICE [facility] May 02, 2024 10:08 AM OBSTRUCTIVE SERIES : ALONSO DELGADO [id number] -1950 M Exm Date: MAY 02, 2024@10:08 Req Phys: DARRYL COBURN Pat Loc: PB-CARLYN [place] (Req'g Loc) Img Loc: PB-RADIOLOGY Service: Unknown [facility] [place] [address] (Case [id number] COMPLETE) OBSTRUCTIVE SERIES (RAD Detailed) CPT:38145 Reason for Study: nausea, constipation for 6 weeks Clinical History: nausea, constipation for 6 weeks Report Status: Verified Date Reported: MAY 02, 2024 Date Verified: MAY 02, 2024 Church Worker E-Sig:/ES/RONI MCKEON Report: Obstructive series Chest reveals [...] calcification Primary Interpreting Staff: RONI MCKEON, RADIOLOGIST (Church Worker) /RONI Hi [facility] Encounter Notes: All associated encounter notes This section contains the clinical notes associated to the Encounter. Date/Time Encounter Note(s) Provider Source May 10, 2024 07:34 AM SLEEP MEDICINE NOT E: LOCAL TITLE: CPAP CLINIC NOTE STANDARD TITLE: SLEEP MEDICINE NOTE DATE OF NOTE: MAY 10, 2024@07:34 ENTRY DATE: MAY 10, 2024@07:34:20 AUTHOR: MIREYA RAJAN EXP COSIGNER: URGENCY: STATUS: COMPLETED DIAG:DANELLE Spoke to the pt on the phone for PAP f/u. The pt is non-compliant and the AHi is elevated at 7.4. He states that his reason for only using his PAP device 52% of the time is due to just not feeling well. I encouraged the pt to increase his PAP use. I also advised the pt NOT to use the N20 mask and use the Padilla mask instead. Pt has cardiac defib implant and N20 mask uses magnets. Remainder of yearly CPAP supplies were ordered for the pt. Alonso Delgado 01/30/2024 - 05/10/2024 : 1950 Age: 74 years [id number]-KpcksoJIMMY Back Compliance Report Compliance Payor [place] [facility] Usage 01/30/2024 - 05/10/2024 Usage days 53/102 days (52%) >= 4 hours 43 days (42%) < 4 hours 10 days (10%) Usage hours 330 hours 1 minutes Average usage (total days) 3 hours 14 minutes Average usage (days used) 6 hours 14 minutes Median usage (days used) 6 hours 28 minutes Total used hours (value since last reset - 05/10/2024) 327 hours [employer] 10 ASV Serial number [id number] Mode ASVAuto Min EPAP 6 cmH2O Max EPAP 15 cmH2O Min PS 4 cmH2O Max PS 10 cmH2O Therapy Leaks - L/min Median: 2.4 95th percentile: 34.9 Maximum: 100.5 Events per hour AI: 2.9 HI: 4.5 AHI: 7.4 Usage - hours Printed on 05/10/2024 - [facility] version 4.46.0-8.0 Page 1 of // MIREYA RAJAN, LOLLYPOP MACHINE OPERATOR REGISTERED RESPIRATORY THERAPIST Signed: 05/10/2024 11:19 MIREYA RAJAN [facility]
--- OUTSIDE RECORDS SUMMARY | 2024-09-07 10:56 | XMS_ITS | Encounter Summary ---
Author Name [facility] [place] [facility] [place] Address [address] [place] [address] Care Team Providers Care Testing Consultant Name Role Phone DRE ALEX Primary Care [...] PART B Mar 04, 2012 PART B [id number] [phone] LEONARD LEWIS PATIENT MEDICARE (WNR) MEDICARE (M) PART A Mar 04, 2012 PART A [id number] [phone] LEONARD LEWIS PATIENT MEDICARE (WNR) MEDICARE (M) PART A Mar 04, 2012 PART A [id number] LEONARD LEWIS PATIENT MEDICARE (WNR) MEDICARE (M) PART B Mar 04, 2012 PART B [id number] LEONARD LEWIS PATIENT MEDICARE (WNR) MEDICARE (M) PART A Mar 04, 2012 PART A [id number] LEONARD LEWIS PATIENT MEDICARE (WNR) MEDICARE (M) PART B Mar 04, 2012 PART B [id number] [phone] LEONARD LEWIS PATIENT -FO R-LIFE TRICA RE FOR LIFE WNR Aug 31, 2016 FOR LIFE [id number] [phone] LEONARD LEWIS PATIENT -FO R-LIFE TRICA RE FOR LIFE WNR Aug 31, 2016 FOR LIFE [id number] [phone] LEONARD LEWIS PATIENT Selected Encounter This section includes the information on record at [place] for the Encounter. Date/Time Encounter Type Encounter Description Reason Provider Source May 03, 2024 11:41 AM HC PRO PHONE CALL 11-20 MIN TELEPHONE/MEDICIN E ICD-10-CM R91.8 Other nonspecific abnormal finding of lung field BRANDON SEPULVEDA Aby Encounter Template Text not used by [place] Assessments - Encounter Diagnoses This section includes the primary and secondary diagnoses documented for the Encounter. Date/Time Primary/Secondary Diagnosis Diagnosis Name Provider Source May 03, 2024 11:41 AM PRIMARY Other nonspecific abnormal finding of lung field BRANDON SEPULVEDA [facility] May 03, 2024 11:41 AM SECONDARY Encntr screen for malignant neoplasm of respiratory organs BRANDON SEPULVEDA [facility] Plan of Treatment: Future Appointments (+ 6 [...] PM AMBULATORY - MEDICINE [place] [facility] May 23, 2024 09:00 AM AMBULATORY - MEDICINE [facility] May 30, 2024 09:00 AM AMBULATORY - MEDICINE [facility] Jun 11, 2024 11:30 AM AMBULATORY - NONE [place] [facility] Jul 04, 2024 08:30 AM [facility] [place] [facility] Oct 30, 2024 03:00 PM [facility]ULATORY - [place]IC[place] [facility] Lab Results: +/- 30 days of the [...] Range Comment May 23, 2024 09:01 AM [facility] URIC ACID Specimen Type: PLASMA No comment entered. Ordering Provider: DRE ALEX Report Released Date/Time: May 30, 2023 11:59 AM Reporting Lab: [place] [facility] [address] [place] [address] Performing Lab: [place] [facility] [address] [place] [address] URIC ACID 2.4 mg/dL L 3.5-7.2 May 23, 2024 09:01 AM [facility] B12 Specimen Type: SERUM No comment entered. Ordering Provider: RDE ALEX Report Released Date/Time: May 30, 2023 11:59 AM Reporting Lab: [place] [facility] [address] [place] [address] Performing Lab: [place] [facility] [address] [place] [address] B12 770 pg/mL 213-816 May 23, 2024 09:01 AM [facility] HGA1C Specimen Type: BLOOD No comment entered. Ordering Provider: DRE ALEX Report Released Date/Time: May 30, 2023 11:59 AM Reporting Lab: [place] [facility] [address] [place] [address] Performing Lab: [place] [facility] [address] [place] [address] HGA1C 5.7 4.0-6.0 May 23, 2024 09:01 AM [facility] FOLATE (PB) Specimen Type: SERUM No comment entered. Ordering Provider: DRE ALEX Report Released Date/Time: May 30, 2023 11:59 AM Reporting Lab: [place] [facility] [address] [place] [address] Performing Lab: [place] [facility] [address] [place] [address] FOLATE (PB) 17.3 ng/mL 7-20 May 23, 2024 09:01 AM [facility] CHOLESTEROL PANEL (PB) Specimen Type: PLASMA No comment entered. Ordering Provider: DRE ALEX Report Released Date/Time: May 30, 2023 11:59 AM Reporting Lab: [place] [facility] [address] [place] [address] Performing Lab: [place] [facility] [address] [place] [address] CHOLESTEROL 81 mg/dL 0-200 TRIGLYCERIDE 115 mg/dL 0-150 CALCULATED LDL 20.7 mg/dL HDL(New) 37.3 mg/dL L >40 HDL % OF TOTAL CHOLESTEROL (PB) 46.0 >25 May 23, 2024 09:01 AM [facility] VITAMIN D, 25-HYDROXY Specimen Type: SERUM No comment entered. Ordering Provider: DRE ALEX Report Released Date/Time: May 30, 2023 11:59 AM Reporting Lab: [place] [facility] [address] [place] [address] Performing Lab: [place] [facility] [address] [place] [address] VITAMIN D, 25-HYDROXY 75.0 ng/mL 30-96 May 23, 2024 09:01 AM [facility] TSH (MA-PB) Specimen Type: SERUM No comment entered. Ordering Provider: DRE ALEX Report Released Date/Time: May 30, 2023 11:59 AM Reporting Lab: [place] [facility] [address] [place] [address] Performing Lab: [place] [facility] [address] [place] [address] TSH 1.732 u[IU]/mL 0.47-5 May 23, 2024 09:01 AM [facility] URINE ALBUMIN PROFILE-ih (PB) Specimen Type: URINE No comment entered. Ordering Provider: DRE ALEX Report Released Date/Time: May 30, 2023 11:59 AM Reporting Lab: [place] [facility] [address] [place] [address] Performing Lab: [place] [facility] [address] [place] [address] URINE ALBUMIN (PB-STL) 131.70 mg/L H 0-30 uACR (PB-MA) 398.73 ug/mg CREATININE URINE/OTHERS 33.03 mg/dL May 23, 2024 09:01 AM [facility] CB COMPREHENSIVE METABOLIC PANEL Specimen Type: PLASMA No comment entered. Ordering Provider: DRE ALEX Report Released Date/Time: May 30, 2023 11:59 AM Reporting Lab: [place] [facility] [address] [place] [address] Performing Lab: [place] [facility] [address] [place] [address] CREATININE 4.38 mg/dL H 0.7-1.3 UREA NITROGEN [...] 2020) 13 May 23, 2024 09:01 AM [facility] CB CBC Specimen Type: BLOOD No comment entered. Ordering Provider: DRE ALEX Report Released Date/Time: May 30, 2023 11:59 AM Reporting Lab: [place] [facility] [address] [place] [address] Performing Lab: [place] [facility] [address] [place] [address] WBC 6.8 10*3/uL 3.6-11.2 RBC 3.66 10*6/uL [...] 10*3/uL 0.00-0.05 May 23, 2024 09:01 AM [facility] FERRITIN Specimen Type: SERUM No comment entered. Ordering Provider: DRE ALEX Report Released Date/Time: Mar 12, 2024 04:29 PM Reporting Lab: [place] [facility] [address] [place] [address] Performing Lab: [place] [facility] [address] [place] [address] FERRITIN 2584 ng/mL H 22-275 May 23, 2024 09:01 AM [facility] IRON/TIBC PROFILE Specimen Type: PLASMA No comment entered. Ordering Provider: DRE ALEX Report Released Date/Time: Mar 12, 2024 04:29 PM Reporting Lab: [place] [facility] [address] [place] [address] Performing Lab: [place] [facility] [address] [place] [address] TIBC 220 mg/dL TRANSFERRIN 176 mg/dL 163-344 IRON SATURATION 30 20-50 IRON 67 ug/dL 65-175 May 02, 2024 10:09 AM [place] [facility] HEPATIC FUNCTION PROFILE (PB) Specimen Type: PLASMA No comment entered. Ordering Provider: MELINDA COBURN Report Released Date/Time: May 02, 2024 10:01 AM Reporting Lab: [place] [facility] [address] [place] [address] Performing Lab: [place] [facility] [address] [place] [address] PROTEIN 6.9 g/dL 6-8.6 ALBUMIN 4.2 g/dL 3.4-5 TOTAL BILIRUBIN 0.7 mg/dL 0.2-1.2 ALKALINE PHOSPHATASE 85 U/L 40-150 AST/SGOT 20 U/L 5-34 ALT/SGPT 27 U/L 8-40 CONJ. BILIRUBIN 0.3 mg/dL 0-0.5 May 02, 2024 10:09 AM [place] [facility] MAGNESIUM Specimen Type: PLASMA No comment entered. Ordering Provider: MELINDA COBURN Report Released Date/Time: May 02, 2024 10:01 AM Reporting Lab: [place] [facility] [address] [place] [address] Performing Lab: [place] [facility] [address] [place] [id number] MAGNESIUM 1.59 mg/dL L 1.6-2.6 May 02, 2024 10:09 AM [place] [facility] LIPASE Specimen Type: PLASMA No comment entered. Ordering Provider: MELINDA COBURN Report Released Date/Time: May 02, 2024 10:01 AM Reporting Lab: [place] [facility] [address] [place] [address] Performing Lab: [place] [facility] [address] [place] [address] LIPASE <4 U/L L 8-78 May 02, 2024 10:09 AM [place] [facility] AMYLASE Specimen Type: PLASMA No comment entered. Ordering Provider: MELINDA COBURN Report Released Date/Time: May 02, 2024 10:01 AM Reporting Lab: [place] [facility] [address] [place] [address] Performing Lab: [place] [facility] [address] [place] [address] AMYLASE 47 U/L 25-125 May 02, 2024 10:09 AM [place] [facility] BASIC METABOLIC PANEL Specimen Type: PLASMA No comment entered. Ordering Provider: MELINDA COBURN Report Released Date/Time: May 02, 2024 10:01 AM Reporting Lab: [place] [facility] [address] [place] [address] Performing Lab: [place] [facility] [address] [place] [address] CREATININE 4.65 mg/dL H 0.7-1.3 UREA NITROGEN 28 mg/dL H 9-25 GLUCOSE 147 mg/dL H 72-99 SODIUM 140 meq/L 136-145 POTASSIUM 4.2 meq/L 3.5-5 CHLORIDE 96 meq/L L 98-107 CARBON DIOXIDE 32 meq/L H 22-31 CALCIUM 9.3 mg/dL 8.4-10.4 EGFR (CKD-EPI 2020) 12 May 02, 2024 10:09 AM [place] [facility] URIC ACID Specimen Type: PLASMA No comment entered. Ordering Provider: MELINDA COBURN Report Released Date/Time: May 02, 2024 10:01 AM Reporting Lab: [place] [facility] [address] [place] [address] Performing Lab: [place] [facility] [address] [place] [address] URIC ACID 2.6 mg/dL L 3.5-7.2 May 02, 2024 10:09 AM [place] [facility] CBC Specimen Type: BLOOD No comment entered. Ordering Provider: MELINDA COBURN Report Released Date/Time: May 02, 2024 10:01 AM Reporting Lab: [place] [facility] [address] [place] [address] Performing Lab: [place] [facility] [address] [place] [address] WBC 7.2 10*3/uL 3.6-11.2 RBC 3.44 10*6/uL [...] May 07, 2014 ADVANCE DIRECTIVE JUAN GILLETTE [facility] Radiology Reports: +/- 30 days of [...] 10:23 AM OBSTRUCTIVE SERIES : LEONARD LEWIS [id number] -1950 M Exm Date: MAY 30, 2024@10:23 Req Phys: DRE ALEX Loc: PB-JT PACT DELTA PCP (Req'g L Img Loc: PB-XRAY [place] Service: [place] [address] (Case [id number] COMPLETE) OBSTRUCTIVE SERIES (RAD Detailed) CPT:78737 Reason for Study: nausea vomiting Clinical History: x2 months, csardiac work up neg Report Status: Verified Date Reported: MAY 30, 2024 Date Verified: MAY 30, 2024 Pressure Tank Operator E-Sig: Report: Obstructive series Reveals emphysematous [...] and GI consult Primary Interpreting Staff: RONI CMKEON, RADIOLOGIST (Pressure Tank Operator, no e-sig) /RONI Hi [facility] May 02, 2024 11:47 AM LDCT LCS 1, 3 OR 6 MONTH FOLLOW UP: LEONARD LEWIS [id number] -1950 M Exm Date: MAY 02, 2024@11:47 Req Phys: GABRIELE WARREN Loc: PB-PHONE LUNG SCREEN (Req'g Lo Img Loc: PB-CT IMAGING Service: Unknown [place] [facility] [place], [place] [address] (Case [id number] COMPLETE) LDCT LCS 1, 3 OR 6 MONTH FOLLOW U(CT Detailed) CPT:47376 Reason for Study: LCS 3 month f/u Clinical History: 01.30.2024 LRADS 4A; 5.5mm left lobe Smoking hx: 1.5ppd x 55 yrs; quit 2020 [place] has dialysis M,W,F. Please schedule for / Report Status: Verified Date Reported: MAY 03, 2024 Date Verified: MAY 03, 2024 Pressure Tank Operator E-Sig: Report: EXAM: LDCT LCS 1, 3 OR 6 MONTH FOLLOW UP ADDITIONAL HISTORY: N/A COMPARISON: CT chest 01/30/2024, 10/31/2023, 04/13/2020 PROTOCOL: Screening protocol, low dose, non-contrast CT chest was performed at the local [place] facility in accordance with Lung-Rads 2021. Additional [...] atelectasis. READING PHYSICIAN: Luz Maria Alan M.D. -[phone] 05/03/2024 12:31 EDT [facility] Teleradiology Program [phone] (For Medical Practitioner Use Only) Attention Patients / Veterans: If you have questions or concerns about these test results, please contact your ordering provider or primary care team. Primary Interpreting Staff: RADIOLOGY,OUTSIDE SERVICE, Staff Physician / RADIOLOGY,OUTSIDE SERVICE [facility] May 02, 2024 10:08 AM OBSTRUCTIVE SERIES : LEWISLEONARD FIGUEROA [id number] -1950 M Exm Date: MAY 02, 2024@10:08 Req Phys: DARRYL COBURN Loc: PB-CARLYN [place] (Req'g Loc) [facility] [place]: PB-RADIOLOGY Service: Unknown [facility] [facility] [place] [place] [address] (Case [id number] COMPLETE) OBSTRUCTIVE SERIES (RAD Detailed) CPT:23690 Reason for Study: nausea, constipation for 6 weeks Clinical History: nausea, constipation for 6 weeks Report Status: Verified Date Reported: MAY 02, 2024 Date Verified: MAY 02, 2024 Pressure Tank Operator E-Sig:/ES/RONI MCKEON Report: Obstructive series Chest [...] calcification Primary Interpreting Staff: RONI MCKEON, RADIOLOGIST (Pressure Tank Operator) /RONI Hi [facility] Encounter Notes: All associated encounter notes This section contains the clinical notes associated to the Encounter. Date/Time Encounter Note(s) Provider Source May 03, 2024 11:41 AM PRIMARY CARE DIAGN OSTIC STUDY NOTE: LOCAL TITLE: LDCT FOLLOW-UP NOTE PB STANDARD TITLE: PRIMARY CARE DIAGNOSTIC STUDY NOTE DATE OF NOTE: MAY 03, 2024@11:41 ENTRY DATE: MAY 03, 2024@11:41:53 AUTHOR: BRANDON SEPULVEDA EXP COSIGNER: URGENCY: STATUS: COMPLETED completed 3 month f/u from LRADS 4A ( left lingular nodule 2.6mm->5.5mm) from 01.30.2024 per rec of radiology as well as [facility] senior director econsult pulm review. Currently categorized on 05.02.2024 LDCT as LRADS 2: INDEX NODULE: No suspicious pulmonary nodule. OTHER NODULES: New left upper lobe 2 mm solid nodule (series 3 image 49) and right middle lobe 3 mm solid nodule (image 138). Left upper lobe 3 mm solid nodule (series 3 image 76) and lingular 4 mm solid nodule (image 191) are unchanged compared with January 2024. LUNG-RADS: 2: Benign. New solid nodules measuring up to 3 mm (LUNG-RADS 2 per 2021 criteria). RECOMMENDATION: [address] follow-up, if patient meets screening criteria LUNG-RADS MODIFIER: S: Findings unrelated to lung cancer. Consolidation in the left lower lobe adjacent to pleural thickening/effusion with associated parenchymal bands and volume loss is also not significantly changed compared with October 2023, favored to reflect atelectasis. Treated by urgent care 05.02.2024: 1) AZITHROMYCIN 250MG TAB TAKE TWO TABLETS [...] CAPFUL BY MOUTH ONCE A DAY NEEDED 11:50-12:10 Phone contact to vet@ . Caregiver Doug, verified vet by name/. Reports she coordinates all his care as he doesn't remember what was told to him...he is sleeping, treated in urgent care yesterdy for pneumonia and consipation...when there for throwing up. Informed LDCT results and radiology recommendation of 12 month f/u LDCT. Educated regarding lung nodules & reviewed risks/benefits of LCS program. Confirms last seen by [facility] pulm on 18 April 2024 (note in vista). Confirms they have NOT been doing any imaging at this time but adds she signed the ESME for all reports and imaging up to yesterday's imaging to be sent. STates they will schedule f/u appt after receiving all imaging. Smoking hx: Confirmed continues refrain from smoking, quiting in 2020 (after 1.5ppd x 55 yrs). Plan: Voiced understanding of all communication, agrees with 12 month f/u plan, denies any questions/concerns and informed to f/u with PCP for any interval questions/concerns. Much gratitude expressed for initial call. Will update LCS platform/order and will alert PCP as to s findings, treated for pneumonia as of yesterday from urgent care after going for c/o emesis x 6 weeks, 3-5x week of bile. Denies every seeing a GI provider. Denies abdominal pain, only emesis. States has PCP appt upcoming next month. TRACKING OF NODULE INDICATED: Date of current image: Date: May 02, 2024 Lung RADS Score: 2 S Code: Yes Incidental Findings: The following *INCIDENTAL FINDINGS* were noted: I am notifying the Primary Care Provider for information, and for follow-up of incidental findings, if indicated. Plan: Interval until next LDCT scan is due: 12 months Patient Notification of results: Patient contacted by telephone. /sepideh/ BRANDON CORDERON RN CHERRY V15 CR[facility] Spec RNCC Signed: 05/03/2024 12:27 Receipt Acknowledged By: 05/07/2024 15:32 /sepideh/ BRANDON BROOKS MD [facility]
--- OUTSIDE RECORDS SUMMARY | 2024-09-07 10:56 | XMS_ITS | Encounter Summary ---
Author Name [facility] [place] [facility] [place] Address [address] [place] [address] Care Team Providers Care Curam Developer Name Role Phone DRE ALEX Primary Care [...] PART A Mar 04, 2012 PART A [id number] [phone] LEONARD LEWIS PATIENT MEDICARE (WNR) MEDICARE (M) PART B Mar 04, 2012 PART B [id number] LEONARD LEWIS PATIENT MEDICARE (WNR) MEDICARE (M) PART A Mar 04, 2012 PART A [id number] LEONARD LEWIS PATIENT MEDICARE (WNR) MEDICARE (M) PART B Mar 04, 2012 PART B [id number] LEONARD LEWIS PATIENT MEDICARE (WNR) MEDICARE (M) PART B Mar 04, 2012 PART B [id number] LEONARD LEWIS PATIENT MEDICARE (WNR) MEDICARE (M) PART A Mar 04, 2012 PART A [id number] LEONARD LEWIS PATIENT -FO R-LIFE [facility] RE FOR LIFE WNR Aug 31, 2016 FOR LIFE [id number] [phone] LEONARD LEWIS PATIENT -FO R-LIFE [facility] RE FOR LIFE WNR Aug 31, 2016 FOR LIFE [id number] [phone] LEONARD LEWIS PATIENT Selected Encounter This section includes the information on record at [place] for the Encounter. Date/Time Encounter Type Encounter Description Reason Pro vider Source May 02, 2024 12:00 AM Outpatient Encounter EVENT (HISTORICAL) IHE Encounter Template Text not used by [place] Plan of Treatment: Future Appointments (+ 6 months) and Future Tests (+/- 45 days) The Plan of Treatment section includes future care activities for the patient from all [place] treatmentfacilities. This section includes future appointments and future orders which are active, pending or scheduled. Future Appointments This section includes appointments that were scheduled to occur 6 months from the date of the Encounter, up to a maximum of 20 appointments. The data comes from all [place] treatment facilities. Appointment Date/Time Appointment Type Appointme nt Facility Name May 10, 2024 01:30 PM [facility] [place] [facility] May 23, 2024 09:00 AM AMBULATORY - MEDICINE [facility] May 30, 2024 09:00 AM AMBULATORY - MEDICINE [facility] Jun 11, 2024 11:30 AM AMBULATORY - NONE [place] [facility] Jul 04, 2024 08:30 AM [facility] - [place] [facility] Oct 30, 2024 03:00 PM [facility] - MEDICINE [place] [facility] Lab Results: +/- 30 days of the encounter This section includes the Chemistry and Hematology Lab Results on record with [place] for the patient. Radiology Reports and Pathology Reports are provided separately, in subsequent sections. Lab Results This section contains the Chemistry/Hematology Results that were resulted 30 days before or 30 daysafter the date of the Encounter. Date/Time Source Result Type Result - Unit Interpretation Reference Range Comment May 23, 2024 09:01 AM [facility] URIC ACID Specimen Type: PLASMA No comment entered. Ordering Provider: DRE ALEX Report Released Date/Time: May 30, 2023 11:59 AM Reporting Lab: [place] [facility] [address] [place] [address] Performing Lab: [place] [facility] [address] [place] [address] URIC ACID 2.4 mg/dL L 3.5-7.2 May 23, 2024 09:01 AM [facility] B12 Specimen Type: SERUM No comment entered. Ordering Provider: DRE ALEX Report Released Date/Time: May 30, 2023 11:59 AM Reporting Lab: [place] [facility] [address] [place] [address] Performing Lab: [place] [facility] [address] [place] [address] B12 770 pg/mL 213-816 May 23, 2024 09:01 AM [facility] FOLATE (PB) Specimen Type: SERUM No comment entered. Ordering Provider: DRE ALEX Report Released Date/Time: May 30, 2023 11:59 AM Reporting Lab: [place] [facility] [address] [place] [address] Performing Lab: [place] [facility] [address] [place] [address] FOLATE (PB) 17.3 ng/mL 7-20 May 23, 2024 09:01 AM [facility] HGA1C Specimen Type: BLOOD No comment entered. Ordering Provider: DRE ALEX Report Released Date/Time: May 30, 2023 11:59 AM Reporting Lab: [place] [facility] [address] [place] [address] Performing Lab: [place] [facility] [address] [place] [address] HGA1C 5.7 4.0-6.0 May 23, 2024 09:01 AM [facility] VITAMIN D, 25-HYDROXY Specimen Type: SERUM No comment entered. Ordering Provider: DRE ALEX Report Released Date/Time: May 30, 2023 11:59 AM Reporting Lab: [place] [facility] [address] [place] [address] Performing Lab: [place] [facility] [address] [place] [address] VITAMIN D, 25-HYDROXY 75.0 ng/mL 30-96 May 23, 2024 09:01 AM [facility] CHOLESTEROL PANEL (PB) Specimen Type: PLASMA No comment entered. Ordering Provider: DRE ALEX Report Released Date/Time: May 30, 2023 11:59 AM Reporting Lab: [place] [facility] [address] [place] [address] Performing Lab: [place] [facility] [address] [place] [address] CHOLESTEROL 81 mg/dL 0-200 TRIGLYCERIDE 115 mg/dL 0-150 CALCULATED LDL 20.7 mg/dL HDL(New) 37.3 mg/dL L >40 HDL % OF TOTAL CHOLESTEROL (PB) 46.0 >25 May 23, 2024 09:01 AM [facility] URINE ALBUMIN PROFILE-ih (PB) Specimen Type: URINE No comment entered. Ordering Provider: DRE ALEX Report Released Date/Time: May 30, 2023 11:59 AM Reporting Lab: [place] [facility] [address] [place] [address] Performing Lab: [place] [facility] [address] [place] [address] URINE ALBUMIN (PB-STL) 131.70 mg/L H 0-30 uACR (PB-MA) 398.73 ug/mg CREATININE URINE/OTHERS 33.03 mg/dL May 23, 2024 09:01 AM [facility] TSH (MA-PB) Specimen Type: SERUM No comment entered. Ordering Provider: DRE ALEX Report Released Date/Time: May 30, 2023 11:59 AM Reporting Lab: [place] [facility] [address] [place] [address] Performing Lab: [place] [facility] [address] [place] [address] TSH 1.732 u[IU]/mL 0.47-5 May 23, 2024 09:01 AM [facility] COMPREHENSIVE METABOLIC PANEL Specimen Type: PLASMA No comment entered. Ordering Provider: DRE ALEX Report Released Date/Time: May 30, 2023 11:59 AM Reporting Lab: [place] [facility] [address] [place] [address] Performing Lab: [place] [facility] [address] [place] [facility] [facility] CREATININE 4.38 mg/dL H 0.7-1.3 UREA NITROGEN [...] 2020) 13 May 23, 2024 09:01 AM [facility] CBC Specimen Type: BLOOD No comment entered. Ordering Provider: DRE ALEX Report Released Date/Time: May 30, 2023 11:59 AM Reporting Lab: [place] [facility] [address] [place] [address] Performing Lab: [place] [facility] [address] [place] [facility] WBC 6.8 10*3/uL 3.6-11.2 RBC 3.66 10*6/uL [...] 10*3/uL 0.00-0.05 May 23, 2024 09:01 AM [facility] FERRITIN Specimen Type: SERUM No comment entered. Ordering Provider: DRE ALEX Report Released Date/Time: Mar 12, 2024 04:29 PM Reporting Lab: [place] [facility] [address] [place] [address] Performing Lab: [place] [facility] [address] [place] [address] FERRITIN 2584 ng/mL H 22-275 May 23, 2024 09:01 AM [facility] IRON/TIBC PROFILE Specimen Type: PLASMA No comment entered. Ordering Provider: DRE ALEX Report Released Date/Time: Mar 12, 2024 04:29 PM Reporting Lab: [place] [facility] [address] [place] [address] Performing Lab: [place] [facility] [address] [place] [address] TIBC 220 mg/dL TRANSFERRIN 176 mg/dL 163-344 IRON SATURATION 30 20-50 IRON 67 ug/dL 65-175 May 02, 2024 10:09 AM [facility] HE[facility] FUNCTION PROFILE (PB) Specimen Type: PLASMA No comment entered. Ordering Provider: MELINDA COBURN Report Released Date/Time: May 02, 2024 10:01 AM Reporting Lab: [place] [facility] [address] [place] [address] Performing Lab: [place] [facility] [address] [place] [address] PROTEIN 6.9 g/dL 6-8.6 ALBUMIN 4.2 g/dL 3.4-5 TOTAL BILIRUBIN 0.7 mg/dL 0.2-1.2 ALKALINE PHOSPHATASE 85 U/L 40-150 AST/SGOT 20 U/L 5-34 ALT/SGPT 27 U/L 8-40 CONJ. BILIRUBIN 0.3 mg/dL 0-0.5 May 02, 2024 10:09 AM [facility] MAGNESIUM Specimen Type: PLASMA No comment entered. Ordering Provider: MELINDA COBURN Report Released Date/Time: May 02, 2024 10:01 AM Reporting Lab: [place] [facility] [address] [place] [address] Performing Lab: [place] [facility] [address] [place] [address] MAGNESIUM 1.59 mg/dL L 1.6-2.6 May 02, 2024 10:09 AM [place] [facility] AMYLASE Specimen Type: PLASMA No comment entered. Ordering Provider: MELINDA COBURN Report Released Date/Time: May 02, 2024 10:01 AM Reporting Lab: [place] [facility] [address] [place] [address] Performing Lab: [place] [facility] [address] [place] [address] AMYLASE 47 U/L 25-125 May 02, 2024 10:09 AM [facility] BASIC METABOLIC PANEL Specimen Type: PLASMA No comment entered. Ordering Provider: MELINDA COBURN Report Released Date/Time: May 02, 2024 10:01 AM Reporting Lab: [place] [facility] [address] [place] [address] Performing Lab: [place] [facility] [address] [place] [address] CREATININE 4.65 mg/dL H 0.7-1.3 UREA NITROGEN 28 mg/dL H 9-25 GLUCOSE 147 mg/dL H 72-99 SODIUM 140 meq/L 136-145 POTASSIUM 4.2 meq/L 3.5-5 CHLORIDE 96 meq/L L 98-107 CARBON DIOXIDE 32 meq/L H 22-31 CALCIUM 9.3 mg/dL 8.4-10.4 EGFR (CKD-EPI 2020) 12 May 02, 2024 10:09 AM [place] [facility] LIPASE Specimen Type: PLASMA No comment entered. Ordering Provider: MELINDA COBURN Report Released Date/Time: May 02, 2024 10:01 AM Reporting Lab: [place] [facility] [address] [place] [address] Performing Lab: [place] [facility] [address] [place] [address] LIPASE <4 U/L L 8-78 May 02, 2024 10:09 AM [place] [facility] URIC ACID Specimen Type: PLASMA No comment entered. Ordering Provider: MELINDA COBURN Report Released Date/Time: May 02, 2024 10:01 AM Reporting Lab: [place] [facility] [address] [place] [address] Performing Lab: [place] [facility] [address] [place] [address] URIC ACID 2.6 mg/dL L 3.5-7.2 May 02, 2024 10:09 AM [place] [facility] CBC Specimen Type: BLOOD No comment entered. Ordering Provider: MELINDA COBURN Report Released Date/Time: May 02, 2024 10:01 AM Reporting Lab: [place] [facility] [address] [place] [address] Performing Lab: [place] [facility] [address] [place] [address] WBC 7.2 10*3/uL 3.6-11.2 RBC 3.44 10*6/uL [...] ALL of a patient's completed or amended [place] Advance and Rescinded Directives. The entries below indicate that a directive exists for the patient, but an actual copy is not included with this document. The data comes from all [place] facilities. Date Advance Directives Provider Source May 07, 2014 ADVANCE DIRECTIVE JUAN GILLETTE [facility] Radiology Reports: +/- 30 days of the [...] the Encounter. The data comes from all [place] treatment facilities. Date/Time Radiology Report Provider Source May 30, 2024 10:23 AM OBSTRUCTIVE SERIES : LEONARD LEWIS [id number] -1950 M Exm Date: MAY 30, 2024@10:23 Req Phys: DRE ALEX Loc: PB-JT PACT DELTA PCP (Aleksandar'g L Img Loc: PB-XRAY [place] Service: [place] [address] (Case [id number] COMPLETE) OBSTRUCTIVE SERIES (RAD Detailed) CPT:55919 Reason for Study: nausea vomiting Clinical History: x2 months, csardiac work up neg Report Status: Verified Date Reported: MAY 30, 2024 Date Verified: MAY 30, 2024 Route Sales Specialist E-Sig: Report: Obstructive series Reveals emphysematous changes. [...] consult Primary Interpreting Staff: RONI MCKEON, RADIOLOGIST (Route Sales Specialist, no e-sig) /RONI Hi [facility] May 02, 2024 11:47 AM LDCT LCS 1, 3 OR 6 MONTH FOLLOW UP: LEONARD LEWIS [id number] -1950 M Ex Date: MAY 02, 2024@11:47 Req Phys: GABRIELE WARREN Loc: PB-PHONE LUNG SCREEN (Req'g Lo Img Loc: PB-CT IMAGING Service: Unknown [place] [facility] [place] [id number] (Case [id number] COMPLETE) LDCT LCS 1, 3 OR 6 MONTH FOLLOW U(CT Detailed) CPT:77709 Reason for Study: LCS 3 month f/u Clinical History: 01.30.2024 LRADS 4A; 5.5mm left lobe Smoking hx: 1.5ppd x 55 yrs; quit 2020 [place] has dialysis M,W,F. Please schedule for /Thurs Report Status: Verified Date Reported: MAY 03, 2024 Date Verified: MAY 03, 2024 Route Sales Specialist E-Sig: Report: EXAM: LDCT LCS 1, 3 OR 6 MONTH FOLLOW UP ADDITIONAL HISTORY: N/A COMPARISON: CT chest 01/30/2024, 10/31/2023, 04/13/2020 PROTOCOL: Screening protocol, low dose, non-contrast CT chest was performed at the local [place] facility in accordance with Lung-Rads 202. Additional coronal and sagittal reconstructions. MIP reconstructions were reviewed. 2181 images were received by the [place] National Teleradiology Program (NTP) for interpretation. RADIATION [...] atelectasis. READING PHYSICIAN: Luz Maria Alan M.D. -[phone] 05/03/2024 12:31 EDT [facility] National Teleradiology Program [phone] (For Medical Practitioner Use Only) Attention Patients / Veterans: If you have questions or concerns about these test results, please contact your ordering provider or primary care team. Primary Interpreting Staff: RADIOLOGY,OUTSIDE SERVICE, Staff Physician / RADIOLOGY,OUTSIDE SERVICE RICARDO BONILLA [facility] May 02, 2024 10:08 AM OBSTRUCTIVE SERIES : LEONARD LEWIS [id number] -1950 M Exm Date: MAY 02, 2024@10:08 Req Phys: DARRYL COBURN Loc: PB-CARLYN [place]ALTON (Req'g Loc) Img Loc: PB-RADIOLOGY Service: [place] [address] (Case [id number] COMPLETE) OBSTRUCTIVE SERIES (RAD Detailed) CPT:08181 Reason for Study: nausea, constipation for 6 weeks Clinical History: nausea, constipation for 6 weeks Report Status: Verified Date Reported: MAY 02, 2024 Date Verified: MAY 02, 2024 Route Sales Specialist E-Sig:/ES/RONI MCKEON Report: Obstructive series Chest reveals [...] calcification Primary Interpreting Staff: RONI MCKEON, RADIOLOGIST (Route Sales Specialist) /RONI Hi [facility]
--- OUTSIDE RECORDS SUMMARY | 2024-09-07 10:56 | XMS_ITS ---
Author Name [facility] [place] [facility] [place] Address [address] [place] [address] Care Team Providers Care Lump Roller Name Role Phone DRE ALEX Primary Care [...] PART B Mar 04, 2012 PART B [id number] [phone] LEONARD LEWIS PATIENT MEDICARE (WNR) MEDICARE (M) PART A Mar 04, 2012 PART A [id number] [phone] LEONARD LEWIS PATIENT MEDICARE (WNR) MEDICARE (M) PART A Mar 04, 2012 PART A [id number] [phone] LEONARD LEWIS PATIENT MEDICARE (WNR) MEDICARE (M) PART B Mar 04, 2012 PART B [id number] LEONARD LEWIS PATIENT MEDICARE (WNR) MEDICARE (M) PART A Mar 04, 2012 PART A [id number] LEONARD LEWIS PATIENT MEDICARE (WNR) MEDICARE (M) PART B Mar 04, 2012 PART B [id number] LEONARD LEWIS PATIENT -FO R-LIFE [facility] RE FOR LIFE WNR Aug 31, 2016 FOR LIFE [id number] [phone] LEONARD LEWIS PATIENT -FO R-LIFE [facility] RE FOR LIFE WNR Aug 31, 2016 FOR LIFE [id number] [phone] LEONARD LEWIS PATIENT Selected Encounter This section includes [place] at [place] for [place] Encounter. Date/Time Encounter Type Encounter Description Reason Pro vider Source May 09, 2024 04:07 PM Outpatient Encounter ADMIN PAT ACTIVTIES (MASNONCT) [...] 01:30 PM AMBULATORY - MEDICINE [place] [facility] May 23, 2024 09:00 AM AMBULATORY - MEDICINE [facility] May 30, 2024 09:00 AM AMBULATORY - MEDICINE [facility] Jun 11, 2024 11:30 AM AMBULATORY - NONE [place] [facility] Jul 04, 2024 08:30 AM [facility] [place] [facility] Oct 30, 2024 03:00 PM AMBULATORY - MEDICINE [place] [facility] Lab Results: +/- 30 days [...] Range Comment May 23, 2024 09:01 AM [facility] URIC ACID Specimen Type: PLASMA No comment entered. Ordering Provider: DRE ALEX Report Released Date/Time: May 30, 2023 11:59 AM Reporting Lab: [place] [facility] [address] [place] [address] Performing Lab: [place] [facility] [address] [place] [address] URIC ACID 2.4 mg/dL L 3.5-7.2 May 23, 2024 09:01 AM [facility] B12 Specimen Type: SERUM No comment entered. Ordering Provider: DRE ALEX Report Released Date/Time: May 30, 2023 11:59 AM Reporting Lab: [place] [facility] [address] [place] [address] Performing Lab: [place] [facility] [address] [place] [address] B12 770 pg/mL 213-816 May 23, 2024 09:01 AM [facility] FOLATE (PB) Specimen Type: SERUM No comment entered. Ordering Provider: RDE ALEX Report Released Date/Time: May 30, 2023 11:59 AM Reporting Lab: [place] [facility] [address] [place] [address] Performing Lab: [place] [facility] [address] [place] [address] FOLATE (PB) 17.3 ng/mL 7-20 May 23, 2024 09:01 AM [facility] HGA1C Specimen Type: BLOOD No comment entered. Ordering Provider: DRE ALEX Report Released Date/Time: May 30, 2023 11:59 AM Reporting Lab: [place] [facility] [address] [place] [address] Performing Lab: [place] [facility] [address] [place] [address] HGA1C 5.7 4.0-6.0 May 23, 2024 09:01 AM [facility] VITAMIN D, 25-HYDROXY Specimen Type: SERUM No comment entered. Ordering Provider: DRE ALEX Report Released Date/Time: May 30, 2023 11:59 AM Reporting Lab: [place] [facility] [address] [place] [address] Performing Lab: [place] [facility] [address] [place] [address] VITAMIN D, 25-HYDROXY 75.0 ng/mL 30-96 May 23, 2024 09:01 AM [facility] TSH (MA-PB) Specimen Type: SERUM No comment entered. Ordering Provider: DRE ALEX Report Released Date/Time: May 30, 2023 11:59 AM Reporting Lab: [place] [facility] [address] [place] [address] Performing Lab: [place] [facility] [address] [place] [address] TSH 1.732 u[IU]/mL 0.47-5 May 23, 2024 09:01 AM [facility] URINE ALBUMIN PROFILE-ih (PB) Specimen Type: URINE No comment entered. Ordering Provider: DRE ALEX Report Released Date/Time: May 30, 2023 11:59 AM Reporting Lab: [place] [facility] [address] [place] [address] Performing Lab: [place] [facility] [address] [place] [address] URINE ALBUMIN (PB-STL) 131.70 mg/L H 0-30 uACR (PB-MA) 398.73 ug/mg CREATININE URINE/OTHERS 33.03 mg/dL May 23, 2024 09:01 AM [facility] CHOLESTEROL PANEL (PB) Specimen Type: PLASMA No comment entered. Ordering Provider: DRE ALEX Report Released Date/Time: May 30, 2023 11:59 AM Reporting Lab: [place] [facility] [address] [place] [address] Performing Lab: [place] [facility] [address] [place] [address] CHOLESTEROL 81 mg/dL 0-200 TRIGLYCERIDE 115 mg/dL 0-150 CALCULATED LDL 20.7 mg/dL HDL(New) 37.3 mg/dL L >40 HDL % OF TOTAL CHOLESTEROL (PB) 46.0 >25 May 23, 2024 09:01 AM [facility] COMPREHENSIVE METABOLIC PANEL Specimen Type: PLASMA No comment entered. Ordering Provider: DRE ALEX Report Released Date/Time: May 30, 2023 11:59 AM Reporting Lab: [place] [facility] [address] [place] [address] Performing Lab: [place] [facility] [address] [place] [address] CREATININE 4.38 mg/dL H 0.7-1.3 UREA NITROGEN [...] 2020) 13 May 23, 2024 09:01 AM [facility] CBC Specimen Type: BLOOD No comment entered. Ordering Provider: DRE ALEX Report Released Date/Time: May 30, 2023 11:59 AM Reporting Lab: [place] [facility] [address] [place] [address] Performing Lab: [place] [facility] [address] [place] [address] WBC 6.8 10*3/uL 3.6-11.2 RBC 3.66 10*6/uL [...] 10*3/uL 0.00-0.05 May 23, 2024 09:01 AM [facility] FERRITIN Specimen Type: SERUM No comment entered. Ordering Provider: DRE ALEX Report Released Date/Time: Mar 12, 2024 04:29 PM Reporting Lab: [place] [facility] [address] [place] [address] Performing Lab: [place] [facility] [address] [place] [address] FERRITIN 2584 ng/mL H 22-275 May 23, 2024 09:01 AM [facility] IRON/TIBC PROFILE Specimen Type: PLASMA No comment entered. Ordering Provider: DRE ALEX Report Released Date/Time: Mar 12, 2024 04:29 PM Reporting Lab: [place] [facility] [address] [place] [address] Performing Lab: [place] [facility] [address] [place] [address] TIBC 220 mg/dL TRANSFERRIN 176 mg/dL 163-344 IRON SATURATION 30 20-50 IRON 67 ug/dL 65-175 May 02, 2024 10:09 AM [facility] [facility] MAGNESIUM Specimen Type: PLASMA No comment entered. Ordering Provider: MELINDA COBURN Report Released Date/Time: May 02, 2024 10:01 AM Reporting Lab: [place] [facility] [address] [place] [address] Performing Lab: [place] [facility] [address] [place] [facility] MAGNESIUM 1.59 mg/dL L 1.6-2.6 May 02, 2024 10:09 AM [place] [facility] HEPATIC FUNCTION PROFILE (PB) Specimen Type: PLASMA No comment entered. Ordering Provider: MELINDA COBURN Report Released Date/Time: May 02, 2024 10:01 AM Reporting Lab: [place] [facility] [address] [place] [id number] Performing Lab: [place] [facility] [address] [place] [id number] PROTEIN 6.9 g/dL 6-8.6 ALBUMIN 4.2 g/dL 3.4-5 TOTAL BILIRUBIN 0.7 mg/dL 0.2-1.2 ALKALINE PHOSPHATASE 85 U/L 40-150 AST/SGOT 20 U/L 5-34 ALT/SGPT 27 U/L 8-40 CONJ. BILIRUBIN 0.3 mg/dL 0-0.5 May 02, 2024 10:09 AM [facility] AMYLASE Specimen Type: PLASMA No comment entered. Ordering Provider: MELINDA COBURN Report Released Date/Time: May 02, 2024 10:01 AM Reporting Lab: [place] [facility] [address] [place] [address] Performing Lab: [place] [facility] [address] [place] [address] AMYLASE 47 U/L 25-125 May 02, 2024 10:09 AM [place] [facility] LIPASE Specimen Type: PLASMA No comment entered. Ordering Provider: MELINDA COBURN Report Released Date/Time: May 02, 2024 10:01 AM Reporting Lab: [place] [facility] [address] [place] [address] Performing Lab: [place] [facility] [address] [place] [phone] LIPASE <4 U/L L 8-78 May 02, 2024 10:09 AM [facility] URIC ACID Specimen Type: PLASMA No comment entered. Ordering Provider: MELINDA COBURN Report Released Date/Time: May 02, 2024 10:01 AM Reporting Lab: [place] [facility] [address] [place] [address] Performing Lab: [place] [facility] [address] [place] [address] URIC ACID 2.6 mg/dL L 3.5-7.2 May 02, 2024 10:09 AM [facility] BASIC METABOLIC PANEL Specimen Type: PLASMA No comment entered. Ordering Provider: MELINDA COBURN Report Released Date/Time: May 02, 2024 10:01 AM Reporting Lab: [place] [facility] [address] [place] [address] Performing Lab: [place] [facility] [address] [place] [facility] CREATININE 4.65 mg/dL H 0.7-1.3 UREA NITROGEN 28 mg/dL H 9-25 GLUCOSE 147 mg/dL H 72-99 SODIUM 140 meq/L 136-145 POTASSIUM 4.2 meq/L 3.5-5 CHLORIDE 96 meq/L L 98-107 CARBON DIOXIDE 32 meq/L H 22-31 CALCIUM 9.3 mg/dL 8.4-10.4 EGFR (CKD-EPI 2020) 12 May 02, 2024 10:09 AM [facility] CBC Specimen Type: BLOOD No comment entered. Ordering Provider: MELINDA COBURN Report Released Date/Time: May 02, 2024 10:01 AM Reporting Lab: [place] [facility] [address] [place] [address] Performing Lab: [place] [facility] [address] [place] [address] WBC 7.2 10*3/uL 3.6-11.2 RBC 3.44 10*6/uL [...] 07, 2014 ADVANCE DIRECTIVE JUAN GILLETTE [facility] Radiology Reports: +/- 30 days of [...] 10:23 AM OBSTRUCTIVE SERIES : LEONARD LEWIS [id number] -1950 M Exm Date: MAY 30, 2024@10:23 Req Phys: DRE ALEX Loc: PB-JT PACT DELTA PCP (Aleksandar'justine Barkley Img Loc: PB-XRAY [place] Service: [place] [address] (Case [id number] COMPLETE) OBSTRUCTIVE SERIES (RAD Detailed) CPT:01564 Reason for Study: nausea vomiting Clinical History: x2 months, csardiac work up neg Report Status: Verified Date Reported: MAY 30, 2024 Date Verified: MAY 30, 2024 Battery Engineer E-Sig: Report: Obstructive series Reveals emphysematous changes. [...] consult Primary Interpreting Staff: RONI MCKEON, RADIOLOGIST (Battery Engineer, no e-sig) /RONI Hi [facility] May 02, 2024 11:47 AM LDCT LCS 1, 3 OR 6 MONTH FOLLOW UP: LEONARD LEWIS [id number] -1950 M Ex Date: MAY 02, 2024@11:47 Req Phys: GABRIELE WARREN Pat Loc: PB-PHONE LUNG SCREEN (Req'g Lo Img Loc: PB-CT IMAGING Service: Unknown [facility] [place] [facility] [place] [address] (Case [id number] COMPLETE) LDCT LCS 1, 3 OR 6 MONTH FOLLOW U(CT Detailed) CPT:36700 Reason for Study: LCS 3 month f/u Clinical History: 01.30.2024 LRADS 4A; 5.5mm left lobe Smoking hx: 1.5ppd x 55 yrs; quit 2020 [facility] has dialysis M,W,F. Please schedule for Tu/ Report Status: Verified Date Reported: MAY 03, 2024 Date Verified: MAY 03, 2024 Battery Engineer E-Sig: Report: EXAM: LDCT LCS 1, 3 OR 6 MONTH FOLLOW UP ADDITIONAL HISTORY: N/A COMPARISON: CT chest 01/30/2024, 10/31/2023, 04/13/2020 PROTOCOL: Screening protocol, low dose, non-contrast CT chest was performed at the local [place] facility in accordance with Lung-Rads 2022. Additional [...] atelectasis. READING PHYSICIAN: Luz Maria Alan M.D. -[phone] 05/03/2024 12:[address] [facility] National Teleradiology Program [phone] (For Medical Practitioner Use Only) Attention Patients / Veterans: If you have questions or concerns about these test results, please contact your ordering provider or primary care team. Primary Interpreting Staff: RADIOLOGY,OUTSIDE SERVICE, Staff Physician / RADIOLOGY,OUTSIDE SERVICE [facility] May 02, 2024 10:08 AM OBSTRUCTIVE SERIES : LEONARD LEWIS [id number] -1950 M Exm Date: MAY 02, 2024@10:08 Req Phys: DARRYL COBURN Pat Loc: PB-[place]N [place] (Req'g Loc) Img Loc: PB-RADIOLOGY Service: [place] [address] (Case [id number] COMPLETE) OBSTRUCTIVE SERIES (RAD Detailed) CPT:92285 Reason for Study: nausea, constipation for 6 weeks Clinical History: nausea, constipation for 6 weeks Report Status: Verified Date Reported: MAY 02, 2024 Date Verified: MAY 02, 2024 Battery Engineer E-Sig:/ES/RONI MCKEON Report: Obstructive series Chest reveals [...] calcification Primary Interpreting Staff: RONI MCKEON, RADIOLOGIST (Battery Engineer) /RONI Hi [facility] Encounter Notes: All associated encounter notes This section contains the clinical notes associated to the Encounter. Date/Time Encounter Note(s) Provider Source May 09, 2024 04:07 PM ADMINISTRATIVE NOT E: LOCAL TITLE: ADMINISTRATIVE NOTE PB STANDARD TITLE: ADMINISTRATIVE NOTE DATE OF NOTE: MAY 09, 2024@16:07 ENTRY DATE: MAY 09, 2024@16:08:01 AUTHOR: BRANDI THOMPSON EXP COSIGNER: URGENCY: STATUS: COMPLETED Called to remind of CPAP phone appointment. Appointment Date: 05/10/2024 Appointment Time: 1:30 /es/ BRANDI THOMPSON Signed: 05/09/2024 16:08 BRANDI THOMPSON [facility]
--- OUTSIDE RECORDS SUMMARY | 2024-09-07 10:57 | XMS_ITS | Encounter Summary ---
Author Name [facility] [place] Organization [facility] [place] Address [address] [place] [address] Care Team Providers Care Specialties Operator Name Role Phone DRE ALEX Primary [...] PART A Mar 04, 2012 PART A [id number] LEONARD LEWIS PATIENT MEDICARE (WNR) MEDICARE (M) PART B Mar 04, 2012 PART B [id number] [facility] LEONARD LEWIS PATIENT MEDICARE (WNR) MEDICARE (M) PART A Mar 04, 2012 PART A [id number] [phone] LEONARD LEWIS PATIENT MEDICARE (WNR) MEDICARE (M) PART B Mar 04, 2012 PART B [id number] [phone] LEONARD LEWIS PATIENT MEDICARE (WNR) MEDICARE (M) PART B Mar 04, 2012 PART B [id number] [phone] LEONARD LEWIS PATIENT MEDICARE (WNR) MEDICARE (M) PART A Mar 04, 2012 PART A [id number] [phone] LEONARD LEWIS PATIENT -FO R-LIFE [facility] RE FOR LIFE WNR Aug 31, 2016 FOR LIFE [id number] [phone] LEONARD LEWIS PATIENT -FO R-LIFE [place] RE FOR LIFE WNR Aug 31, 2016 FOR LIFE [id number] [phone] LEONARD LEWIS PATIENT Selected Encounter This section includes the information on record at [place] for the Encounter. Date/Time Encounter Type Encounter Description Reason Pro vider Source May 10, 2024 12:19 PM Outpatient Encounter ADMIN PAT ACTIVTIES (MASNONCT) IHE Encounter Template Text not used by [place] Plan of Treatment: Future Appointments (+ 6 months) and Future Tests (+/- 45 days) The Plan of Treatment section includes future care activities for the patient from all [place] treatmentfacilities. This section includes future appointments and future orders which are active, pending or scheduled. Future Appointments This section includes appointments that were scheduled to occur 6 months from the date of the Encounter, up to a maximum of 20 appointments. The data comes from all [place] treatment facilities. Appointment Date/Time Appointment Type Appointme nt Facility Name May 23, 2024 09:00 AM AMBULATORY [facility] MED[facility]INE [facility] May 30, 2024 09:00 AM AMBULATORY - MEDICINE [facility] Jun 11, 2024 11:30 AM AMBULATORY - NONE [place] [facility] Jul 04, 2024 08:30 AM [facility] - MEDIC[place] [facility] Oct 30, 2024 03:00 PM AMBULATORY - MEDICINE [place] [facility] Lab Results: +/- 30 days of the encounter This section includes the Chemistry and Hematology Lab Results on record with [place] for the patient. Radiology Reports and Pathology Reports are provided separately, in subsequent sections. Lab Results This section contains the Chemistry/Hematology Results that were resulted 30 days before or 30 daysafter the date of the Encounter. Date/Time Source Result Type Result - Unit Interpretation Reference Range Comment May 23, 2024 09:01 AM [facility] URIC ACID Specimen Type: PLASMA No comment entered. Ordering Provider: DRE ALEX Report Released Date/Time: May 30, 2023 11:59 AM Reporting Lab: [place] [facility] [address] [place] [address] Performing Lab: [place] [facility] [address] [place] [address] URIC ACID 2.4 mg/dL L 3.5-7.2 May 23, 2024 09:01 AM [facility] B12 Specimen Type: SERUM No comment entered. Ordering Provider: DRE ALEX Report Released Date/Time: May 30, 2023 11:59 AM Reporting Lab: [place] [facility] [address] [place] [address] Performing Lab: [place] [facility] [address] [place] [address] B12 770 pg/mL 213-816 May 23, 2024 09:01 AM [facility] FOLATE (PB) Specimen Type: SERUM No comment entered. Ordering Provider: DRE ALEX Report Released Date/Time: May 30, 2023 11:59 AM Reporting Lab: [place] [facility] [address] [place] [address] Performing Lab: [place] [facility] [address] [place] [address] FOLATE (PB) 17.3 ng/mL 7-20 May 23, 2024 09:01 AM [facility] HGA1C Specimen Type: BLOOD No comment entered. Ordering Provider: DRE ALEX Report Released Date/Time: May 30, 2023 11:59 AM Reporting Lab: [place] [facility] [address] [place] [address] Performing Lab: [place] [facility] [address] [place] [address] HGA1C 5.7 4.0-6.0 May 23, 2024 09:01 AM [facility] VITAMIN D, 25-HYDROXY Specimen Type: SERUM No comment entered. Ordering Provider: DRE ALEX Report Released Date/Time: May 30, 2023 11:59 AM Reporting Lab: [place] [facility] [address] [place] [address] Performing Lab: [place] [facility] [address] [place] [address] VITAMIN D, 25-HYDROXY 75.0 ng/mL 30-96 May 23, 2024 09:01 AM [facility] TSH (MA-PB) Specimen Type: SERUM No comment entered. Ordering Provider: DRE ALEX Report Released Date/Time: May 30, 2023 11:59 AM Reporting Lab: [place] [facility] [address] [place] [address] Performing Lab: [place] [facility] [address] [place] [address] TSH 1.732 u[IU]/mL 0.47-5 May 23, 2024 09:01 [facility] ALBUMIN PROFILE-ih (PB) Specimen Type: URINE No comment entered. Ordering Provider: DRE ALEX Report Released Date/Time: May 30, 2023 11:59 AM Reporting Lab: [place] [facility] [address] [place] [address] Performing Lab: [place] [facility] [address] [place] [address] URINE ALBUMIN (PB-STL) 131.70 mg/L H 0-30 uACR (PB-MA) 398.73 ug/mg CREATININE URINE/OTHERS 33.03 mg/dL May 23, 2024 09:01 AM [facility] CHOLESTEROL PANEL (PB) Specimen Type: PLASMA No comment entered. Ordering Provider: DRE ALEX Report Released Date/Time: May 30, 2023 11:59 AM Reporting Lab: [place] [facility] [address] [place] [address] Performing Lab: [place] [facility] [address] [place] [address] CHOLESTEROL 81 mg/dL 0-200 TRIGLYCERIDE 115 mg/dL 0-150 CALCULATED LDL 20.7 mg/dL HDL(New) 37.3 mg/dL L >40 HDL % OF TOTAL CHOLESTEROL (PB) 46.0 >25 May 23, 2024 09:01 AM [facility] COMPREHENSIVE METABOLIC PANEL Specimen Type: PLASMA No comment entered. Ordering Provider: DRE ALEX Report Released Date/Time: May 30, 2023 11:59 AM Reporting Lab: [place] [facility] [address] [place] [address] Performing Lab: [place] [facility] [address] [place] [address] CREATININE 4.38 mg/dL H 0.7-1.3 UREA NITROGEN [...] 2020) 13 May 23, 2024 09:01 AM [facility] CBC Specimen Type: BLOOD No comment entered. Ordering Provider: DRE ALEX Report Released Date/Time: May 30, 2023 11:59 AM Reporting Lab: [place] [facility] [address] [place] [address] Performing Lab: [place] [facility] [address] [place] [address] WBC 6.8 10*3/uL 3.6-11.2 RBC 3.66 10*6/uL [...] 10*3/uL 0.00-0.05 May 23, 2024 09:01 AM [facility] FERRITIN Specimen Type: SERUM No comment entered. Ordering Provider: DRE ALEX Report Released Date/Time: Mar 12, 2024 04:29 PM Reporting Lab: [place] [facility] [address] [place] [address] Performing Lab: [place] [facility] [address] [place] [address] FERRITIN 2584 ng/mL H 22-275 May 23, 2024 09:01 AM [facility] IRON/TIBC PROFILE Specimen Type: PLASMA No comment entered. Ordering Provider: DRE ALEX Report Released Date/Time: Mar 12, 2024 04:29 PM Reporting Lab: [place] [facility] [address] [place] [address] Performing Lab: [place] [facility] [address] [place] [address] TIBC 220 mg/dL TRANSFERRIN 176 mg/dL 163-344 IRON SATURATION 30 20-50 IRON 67 ug/dL 65-175 May 02, 2024 10:09 AM [place] [facility] MAGNESIUM Specimen Type: PLASMA No comment entered. Ordering Provider: MELINDA COBURN Report Released Date/Time: May 02, 2024 10:01 AM Reporting Lab: [place] [facility] [address] [place] [address] Performing Lab: [place] [facility] [address] [place] [address] MAGNESIUM 1.59 mg/dL L 1.6-2.6 May 02, 2024 10:09 AM [place] [facility] HEPATIC FUNCTION PROFILE (PB) Specimen Type: PLASMA No comment entered. Ordering Provider: MELINDA COBURN Report Released Date/Time: May 02, 2024 10:01 AM Reporting Lab: [place] [facility] [address] [place] [facility] Performing Lab: [place] [facility] [address] [place] [facility] PROTEIN 6.9 g/dL 6-8.6 ALBUMIN 4.2 g/dL 3.4-5 TOTAL BILIRUBIN 0.7 mg/dL 0.2-1.2 ALKALINE PHOSPHATASE 85 U/L 40-150 AST/SGOT 20 U/L 5-34 ALT/SGPT 27 U/L 8-40 CONJ. BILIRUBIN 0.3 mg/dL 0-0.5 May 02, 2024 10:09 AM [facility] AMYLASE Specimen Type: PLASMA No comment entered. Ordering Provider: MELINDA COBURN Report Released Date/Time: May 02, 2024 10:01 AM Reporting Lab: [place] [facility] [address] [place] [facility] Performing Lab: [place] [facility] [address] [place] [facility] AMYLASE 47 U/L 25-125 May 02, 2024 10:09 AM [facility] BASIC METABOLIC PANEL Specimen Type: PLASMA No comment entered. Ordering Provider: MELINDA COBURN Report Released Date/Time: May 02, 2024 10:01 AM Reporting Lab: [place] [facility] [address] [place] [facility] Performing Lab: [place] [facility] [address] [place] [facility] CREATININE 4.65 mg/dL H 0.7-1.3 UREA NITROGEN 28 mg/dL H 9-25 GLUCOSE 147 mg/dL H 72-99 SODIUM 140 meq/L 136-145 POTASSIUM 4.2 meq/L 3.5-5 CHLORIDE 96 meq/L L 98-107 CARBON DIOXIDE 32 meq/L H 22-31 CALCIUM 9.3 mg/dL 8.4-10.4 EGFR (CKD-EPI 2020) 12 May 02, 2024 10:09 AM [place] [facility] URIC ACID Specimen Type: PLASMA No comment entered. Ordering Provider: MELINDA COBURN Report Released Date/Time: May 02, 2024 10:01 AM Reporting Lab: [place] [facility] [address] [place] [address] Performing Lab: [place] [facility] [address] [place] [address] URIC ACID 2.6 mg/dL L 3.5-7.2 May 02, 2024 10:09 AM [place] [facility] LIPASE Specimen Type: PLASMA No comment entered. Ordering Provider: MELINDA COBURN Report Released Date/Time: May 02, 2024 10:01 AM Reporting Lab: [place] [facility] [address] [place] [address] Performing Lab: [place] [facility] [address] [place] [address] LIPASE <4 U/L L 8-78 May 02, 2024 10:09 AM [place] [facility] CBC Specimen Type: BLOOD No comment entered. Ordering Provider: MELINDA COBURN Report Released Date/Time: May 02, 2024 10:01 AM Reporting Lab: [place] [facility] [address] [place] [address] Performing Lab: [place] [facility] [address] [place] [address] WBC 7.2 10*3/uL 3.6-11.2 RBC 3.44 10*6/uL [...] and tobacco- related health factors from the [place] facility where the Encounter took place. Current Smoking Status This section includes the most current smoking, or tobacco-related health factor, from the DE facility where the Encounter took place. Date/Time Current Smoking Status Comment Facil ity Jun 15, 2011 02:49 PM TOBACCO OFFERED PT MEDS (PROVIDE R) [facility] Tobacco Use History This section includes a history of the smoking, or tobacco-related health factors, that were collected on or before the date of the Encounter. The data comes from the [place] facility where the Encounter took place. Date/Time Smoking Status/Tobacco Use Comment F acility Jun 15, 2011 02:49 PM TOBACCO OFFERED PT MEDS (PROVIDE R) [facility] Jun 15, 2011 02:[address] OP SMOKING CLINIC [facility] Advance Directives: All historical and current Section Date Range: From patient's date of to the date document was created. This section includes ALL of a patient's completed or amended [place] Advance and Rescinded Directives. The entries below indicate that a directive exists for the patient, but an actual copy is not included with this document. The data comes from all [place] facilities. Date Advance Directives Provider Source May 07, 2014 ADVANCE DIRECTIVE JUAN GILLETTE [facility] Radiology Reports: +/- 30 days [...] the Encounter. The data comes from all [place] treatment facilities. Date/Time Radiology Report Provider Source May 30, 2024 10:23 AM OBSTRUCTIVE SERIES : LEONARD LEWIS [id number] -1950 M Exm Date: MAY 30, 2024@10:23 Req Phys: DRE ALEX Pat Loc: PB-JT PACT DELTA PCP (Req'g L Img Loc: [place]-XRAY [place] Service: [place] [address] (Case [id number] COMPLETE) OBSTRUCTIVE SERIES (RAD Detailed) CPT:45568 Reason for Study: nausea vomiting Clinical History: x2 months, csardiac work up neg Report Status: Verified Date Reported: MAY 30, 2024 Date Verified: MAY 30, 2024 Silvering Applicator E-Sig: Report: Obstructive series Reveals emphysematous changes. [...] consult Primary Interpreting Staff: RONI MCKEON, RADIOLOGIST (Silvering Applicator, no e-sig) /RONI Hi [facility] May 02, 2024 11:47 AM LDCT LCS 1, 3 OR 6 MONTH FOLLOW UP: LEONARD LEWIS [id number] -1950 M Exm Date: MAY 02, 2024@11:47 Req Phys: MONIGABRIELE Badillo Loc: PB-PHONE LUNG SCREEN (Req'g Lo Img Loc: PB-CT IMAGING Service: Unknown [facility] [place] [facility] [place] [address] (Case [id number] COMPLETE) LDCT LCS 1, 3 OR 6 MONTH FOLLOW U(CT Detailed) CPT:66110 Reason for Study: LCS 3 month f/u Clinical History: 01.30.2024 LRADS 4A; 5.5mm left lobe Smoking hx: 1.5ppd x 55 yrs; quit 2020 [place] has dialysis M,W,F. Please schedule for / Report Status: Verified Date Reported: MAY 03, 2024 Date Verified: MAY 03, 2024 Silvering Applicator E-Sig: Report: EXAM: LDCT LCS 1, 3 OR 6 MONTH FOLLOW UP ADDITIONAL HISTORY: N/A COMPARISON: CT chest 01/30/2024, 10/31/2023, 04/13/2020 PROTOCOL: Screening protocol, low dose, non-contrast CT chest was performed at the local [place] facility in accordance with Lung-Rads 2. Additional coronal and sagittal reconstructions. MIP reconstructions were reviewed. 2181 images were received by the [place] National Teleradiology Program (NTP) for interpretation. RADIATION [...] atelectasis. READING PHYSICIAN: Luz Maria Alan M.D. -[phone] 05/03/2024 12:31 EDT [facility] National Teleradiology Program [phone] (For Medical Practitioner Use Only) Attention Patients / Veterans: If you have questions or concerns about these test results, please contact your ordering provider or primary care team. Primary Interpreting Staff: RADIOLOGY,OUTSIDE SERVICE, Staff Physician / RADIOLOGY,OUTSIDE SERVICE RICARDO MARQUEZ [facility] May 02, 2024 10:08 AM OBSTRUCTIVE SERIES : LEONARD LEWIS [id number] -1950 M Exm Date: MAY 02, 2024@10:08 Req Phys: DARRYL COBURN Loc: PB-CARLYN [place] (Req'g Loc) Img Loc: PB-RADIOLOGY Service: Unknown [facility] [place] [address] (Case [id number] COMPLETE) OBSTRUCTIVE SERIES (RAD Detailed) CPT:79175 Reason for Study: nausea, constipation for 6 weeks Clinical History: nausea, constipation for 6 weeks Report Status: Verified Date Reported: MAY 02, 2024 Date Verified: MAY 02, 2024 Silvering Applicator E-Sig:/ES/RONI B MIKE Report: Obstructive series Chest reveals small left [...] calcification Primary Interpreting Staff: RONI MCKEON, RADIOLOGIST (Silvering Applicator) /RONI Hi [facility] Encounter Notes: All associated encounter notes This section contains the clinical notes associated to the Encounter. Date/Time Encounter Note(s) Provider Source May 10, 2024 11:19 AM ADMINISTRATIVE NOT E: LOCAL TITLE: CCC: SCHEDULING ADMINISTRATION STANDARD TITLE: ADMINISTRATIVE NOTE DATE OF NOTE: MAY 10, 2024@11:19:38 ENTRY DATE: MAY 10, 2024@11:19:38 AUTHOR: MILDRED LOPEZ COSIGNER: URGENCY: STATUS: COMPLETED CCC: SCHEDULING ADMINISTRATION Has ADDENDA Patient Demographics Patient Name: LEONARD LEWIS Patient Primary Phone: [phone] Patient Primary Address: [address] [place] [address] Patient : 1950 Patient Age: 74 Caller/Recipient Relation to Patient: Other If Other Describe Relation to Patient: [place] Caller Name: Yary Administrative Administrative Note Reason: Other Administrative Note Comments: Carmela with [facility] calling to alert PC/RN that needing GI consult and placement, please call her at [phone]. Paper IMPORTANT: This note was created by [facility] Clinical Contact Center staff. Please do not alert the staff member by adding them as a signer for future communications. Alerts are not monitored by this user. /sepideh/ MILDRED Roper MSA Signed: 05/10/2024 11:19 Receipt Acknowledged By: 05/17/2024 15:30 /addie BROWN LPN 05/10/2024 ADDENDUM STATUS: COMPLETED Returned call to number provided and received voicemail with person identifying herself as Kelly. Message left that this number was given for return call. Explained that RFS would need to be sent to [facility] for the GI consult. PRovided number and ext for return call if they do not have RFS forms or have questions. /sepideh/ DAVID BROWN LPN Signed: 05/10/2024 16:10 05/14/2024 ADDENDUM STATUS: COMPLETED Second message left at this number asking for a return call to confirm message received and if any questions. 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 /sepideh/ DAVID BROWN LPN Signed: 05/14/2024 12:15 05/17/2024 ADDENDUM STATUS: COMPLETED Have alerted AMSA with [facility] and she has sent email to that office regarding the need for RFS to be sent in. /sepideh/ DAVID BROWN LPN Signed: 05/17/2024 15:30 MILDRED LOPEZ [facility]
--- OUTSIDE RECORDS SUMMARY | 2024-09-07 10:57 | XMS_ITS | Encounter Summary ---
Author Name [facility] [place] [facility] [place] [facility] [place] Address [address] [place] [address] Care Team Providers Care Regulatory Services Consultant Name Role Phone DRE ALEX Primary [...] PART B Mar 04, 2012 PART B [id number] [phone] LEONARD LEWIS PATIENT MEDICARE (WNR) MEDICARE (M) PART A Mar 04, 2012 PART A [id number] [phone] LEONARD LEWIS PATIENT MEDICARE (WNR) MEDICARE (M) PART A Mar 04, 2012 PART A [id number] LEONARD LEWIS PATIENT MEDICARE (WNR) MEDICARE (M) PART B Mar 04, 2012 PART B [id number] LEONARD LEWIS PATIENT MEDICARE (WNR) MEDICARE (M) PART A Mar 04, 2012 PART A [id number] LEONARD LEWIS PATIENT MEDICARE (WNR) MEDICARE (M) PART B Mar 04, 2012 PART B [id number] LEONARD LEWIS PATIENT -FO R-LIFE [facility] RE FOR LIFE WNR Aug 31, 2016 FOR LIFE [id number] LEONARD LEWIS PATIENT -FO R-LIFE [facility] RE FOR LIFE WNR Aug 31, 2016 FOR LIFE [id number] [phone] LEONARD LEWIS PATIENT Selected Encounter This section includes the information on record at [place] for the Encounter. Date/Time Encounter Type Encounter Description Reason Provider Source May 03, 2024 12:25 PM Outpatient Encounter ADMIN PAT ACTIVTIES (MASNONCT) BRANDON SEPULVEDA Encounter Template Text not used by [place] Plan of Treatment: Future Appointments (+ 6 months) and Future Tests (+/- 45 days) The Plan of Treatment section includes future care activities for the patient from all [place] treatmentfacilities. This section includes future appointments and future orders which are active, pending or scheduled. Future Appointments This section includes appointments that were scheduled to occur 6 months from the date of the Encounter, up to a maximum of 20 appointments. The data comes from all [place] treatment facilities. Appointment Date/Time Appointment Type Appointme nt Facility Name May 10, 2024 01:30 PM [facility] May 23, 2024 09:00 AM [facility] MEDICINE [facility] May 30, 2024 09:00 AM AMBULATORY - MEDICINE [facility] Jun 11, 2024 11:30 AM AMBULATORY - NONE [place] [facility] Jul 04, 2024 08:30 AM [facility]ORY - MEDIC[place] [facility] Oct 30, 2024 03:00 PM AMBULATORY - MEDICINE [facility] [facility] Lab Results: +/- 30 days of the encounter This section includes the Chemistry and Hematology Lab Results on record with [place] for the patient. Radiology Reports and Pathology Reports are provided separately, in subsequent sections. Lab Results This section contains the Chemistry/Hematology Results that were resulted 30 days before or 30 daysafter the date of the Encounter. Date/Time Source Result Type Result - Unit Interpretation Reference Range Comment May 23, 2024 09:01 AM [place] [place] [facility] URIC ACID Specimen Type: PLASMA No comment entered. Ordering Provider: DRE ALEX Report Released Date/Time: May 30, 2023 11:59 AM Reporting Lab: [place] [facility] [address] [place] [address] Performing Lab: [place] [facility] [address] [place] [address] URIC ACID 2.4 mg/dL L 3.5-7.2 May 23, 2024 09:01 AM [facility] [place] [facility] FOLATE (PB) Specimen Type: SERUM No comment entered. Ordering Provider: DRE ALEX Report Released Date/Time: May 30, 2023 11:59 AM Reporting Lab: [place] [facility] [address] [place] [address] Performing Lab: [place] [facility] [address] [place] [address] FOLATE (PB) 17.3 ng/mL 7-20 May 23, 2024 09:01 AM [facility] [place] [facility] B12 Specimen Type: SERUM No comment entered. Ordering Provider: DRE ALEX Report Released Date/Time: May 30, 2023 11:59 AM Reporting Lab: [place] [facility] [address] [place] [address] Performing Lab: [place] [facility] [address] [place] [address] B12 770 pg/mL 213-816 May 23, 2024 09:01 AM [facility] [facility] HGA1C Specimen Type: BLOOD No comment entered. Ordering Provider: DRE ALEX Report Released Date/Time: May 30, 2023 11:59 AM Reporting Lab: [place] [facility] [address] [place] [address] Performing Lab: [place] [facility] [address] [place] [address] HGA1C 5.7 4.0-6.0 May 23, 2024 09:01 AM [facility] [place] [facility] TSH ([place]-PB) Specimen Type: SERUM No comment entered. Ordering Provider: DRE ALEX Report Released Date/Time: May 30, 2023 11:59 AM Reporting Lab: [place] [facility] [address] [place] [address] Performing Lab: [place] [facility] [address] [place] [address] TSH 1.732 u[IU]/mL 0.47-5 May 23, 2024 09:01 AM [facility] CHOLESTEROL PANEL (PB) Specimen Type: PLASMA No comment entered. Ordering Provider: DRE ALEX Report Released Date/Time: May 30, 2023 11:59 AM Reporting Lab: [place] [facility] [address] [place] [address] Performing Lab: [place] [facility] [address] [place] [address] CHOLESTEROL 81 mg/dL 0-200 TRIGLYCERIDE 115 mg/dL 0-150 CALCULATED LDL 20.7 mg/dL HDL(New) 37.3 mg/dL L >40 HDL % OF TOTAL CHOLESTEROL (PB) 46.0 >25 May 23, 2024 09:01 AM [facility] VITAMIN D, 25-HYDROXY Specimen Type: SERUM No comment entered. Ordering Provider: DRE ALEX Report Released Date/Time: May 30, 2023 11:59 AM Reporting Lab: [place] [facility] [address] [place] [address] Performing Lab: [place] [facility] [address] [place] [address] VITAMIN D, 25-HYDROXY 75.0 ng/mL 30-96 May 23, 2024 09:01 AM [facility] URINE ALBUMIN PROFILE-ih (PB) Specimen Type: URINE No comment entered. Ordering Provider: DRE ALEX Report Released Date/Time: May 30, 2023 11:59 AM Reporting Lab: [place] [facility] [address] [place] [address] Performing Lab: [place] [facility] [address] [place] [address] URINE ALBUMIN (PB-STL) 131.70 mg/L H 0-30 uACR (PB-MA) 398.73 ug/mg CREATININE URINE/OTHERS 33.03 mg/dL May 23, 2024 09:01 AM [facility] CB COMPREHENSIVE METABOLIC PANEL Specimen Type: PLASMA No comment entered. Ordering Provider: DRE ALEX Report Released Date/Time: May 30, 2023 11:59 AM Reporting Lab: [place] [facility] [address] [place] [address] Performing Lab: [place] [facility] [address] [place] [address] CREATININE 4.38 mg/dL H 0.7-1.3 UREA NITROGEN [...] 2020) 13 May 23, 2024 09:01 AM [facility] CB CBC Specimen Type: BLOOD No comment entered. Ordering Provider: DRE ALEX Report Released Date/Time: May 30, 2023 11:59 AM Reporting Lab: [place] [facility] [address] [place] [address] Performing Lab: [place] [facility] [address] [place] [address] WBC 6.8 10*3/uL 3.6-11.2 RBC 3.66 10*6/uL [...] 10*3/uL 0.00-0.05 May 23, 2024 09:01 AM [facility] FERRITIN Specimen Type: SERUM No comment entered. Ordering Provider: DRE ALEX Report Released Date/Time: Mar 12, 2024 04:29 PM Reporting Lab: [place] [facility] [address] [place] [address] Performing Lab: [place] [facility] [address] [place] [address] FERRITIN 2584 ng/mL H 22-275 May 23, 2024 09:01 AM [facility] IRON/TIBC PROFILE Specimen Type: PLASMA No comment entered. Ordering Provider: DRE ALEX Report Released Date/Time: Mar 12, 2024 04:29 PM Reporting Lab: [place] [facility] [address] [place] [address] Performing Lab: [place] [facility] [address] [place] [address] TIBC 220 mg/dL TRANSFERRIN 176 mg/dL 163-344 IRON SATURATION 30 20-50 IRON 67 ug/dL 65-175 May 02, 2024 10:09 AM [place] [facility] MAGNESIUM Specimen Type: PLASMA No comment entered. Ordering Provider: MELINDA COBURN Report Released Date/Time: May 02, 2024 10:01 AM Reporting Lab: [place] [facility] [address] [place] [address] Performing Lab: [place] [facility] [address] [place] [address] MAGNESIUM 1.59 mg/dL L 1.6-2.6 May 02, 2024 10:09 AM [place] [facility] HEPATIC FUNCTION PROFILE (PB) Specimen Type: PLASMA No comment entered. Ordering Provider: MELINDA COBURN Report Released Date/Time: May 02, 2024 10:01 AM Reporting Lab: [place] [facility] [address] [place] [id number] Performing Lab: [place] [facility] [address] [place] [facility] PROTEIN 6.9 g/dL 6-8.6 ALBUMIN 4.2 g/dL 3.4-5 TOTAL BILIRUBIN 0.7 mg/dL 0.2-1.2 ALKALINE PHOSPHATASE 85 U/L 40-150 AST/SGOT 20 U/L 5-34 ALT/SGPT 27 U/L 8-40 CONJ. BILIRUBIN 0.3 mg/dL 0-0.5 May 02, 2024 10:09 AM [facility] LIPASE Specimen Type: PLASMA No comment entered. Ordering Provider: MELINDA COBURN Report Released Date/Time: May 02, 2024 10:01 AM Reporting Lab: [place] [facility] [address] [place] [facility] Performing Lab: [place] [facility] [address] [place] [address] LIPASE <4 U/L L 8-78 May 02, 2024 10:09 AM [place] [facility] AMYLASE Specimen Type: PLASMA No comment entered. Ordering Provider: MELINDA COBURN Report Released Date/Time: May 02, 2024 10:01 AM Reporting Lab: [place] [facility] [address] [place] [address] Performing Lab: [place] [facility] [address] [place] [phone] AMYLASE 47 U/L 25-125 May 02, 2024 10:09 AM [facility] BASIC METABOLIC PANEL Specimen Type: PLASMA No comment entered. Ordering Provider: MELINDA COBURN Report Released Date/Time: May 02, 2024 10:01 AM Reporting Lab: [place] [facility] [address] [place] [address] Performing Lab: [place] [facility] [address] [place] [address] CREATININE 4.65 mg/dL H 0.7-1.3 UREA NITROGEN 28 mg/dL H 9-25 GLUCOSE 147 mg/dL H 72-99 SODIUM 140 meq/L 136-145 POTASSIUM 4.2 meq/L 3.5-5 CHLORIDE 96 meq/L L 98-107 CARBON DIOXIDE 32 meq/L H 22-31 CALCIUM 9.3 mg/dL 8.4-10.4 EGFR (CKD-EPI 2020) 12 May 02, 2024 10:09 AM [place] [facility] URIC ACID Specimen Type: PLASMA No comment entered. Ordering Provider: MELINDA COBURN Report Released Date/Time: May 02, 2024 10:01 AM Reporting Lab: [place] [facility] [address] [place] [address] Performing Lab: [place] [facility] [address] [place] [address] URIC ACID 2.6 mg/dL L 3.5-7.2 May 02, 2024 10:09 AM [place] [facility] CBC Specimen Type: BLOOD No comment entered. Ordering Provider: MELINDA COBURN Report Released Date/Time: May 02, 2024 10:01 AM Reporting Lab: [place] [facility] [address] [place] [address] Performing Lab: [place] [facility] [address] [place] [address] WBC 7.2 10*3/uL 3.6-11.2 RBC 3.44 10*6/uL [...] ALL of a patient's completed or amended [place] Advance and Rescinded Directives. The entries below indicate that a directive exists for the patient, but an actual copy is not included with this document. The data comes from all [place] facilities. Date Advance Directives Provider Source May 07, 2014 ADVANCE DIRECTIVE JUAN GILLETTE [facility] Radiology Reports: +/- 30 days [...] the Encounter. The data comes from all [place] treatment facilities. Date/Time Radiology Report Provider Source May 30, 2024 10:23 AM OBSTRUCTIVE SERIES : LEONARD LEWIS [id number] -1950 M Exm Date: MAY 30, 2024@10:23 Req Phys: DRE ALEX Loc: PB-JT PACT DELTA PCP (Yandyq'g L Img Loc: PB-XRAY [place] Service: [place] [address] (Case [id number] COMPLETE) OBSTRUCTIVE SERIES (RAD Detailed) CPT:65402 Reason for Study: nausea vomiting Clinical History: x2 months, csardiac work up neg Report Status: Verified Date Reported: MAY 30, 2024 Date Verified: MAY 30, 2024 Design Chief E-Sig: Report: Obstructive series Reveals emphysematous changes. [...] consult Primary Interpreting Staff: RONI MCKEON, RADIOLOGIST (Design Chief, no e-sig) /[facility] RONI MCKEON [facility] May 02, 2024 11:47 AM LDCT LCS 1, 3 OR 6 MONTH FOLLOW UP: LEONARD LEWIS [id number] -1950 M Ex Date: MAY 02, 2024@11:47 Req Phys: GABRIELE WARREN Loc: PB-PHONE LUNG SCREEN (Req'g Lo Img Loc: PB-CT IMAGING Service: Unknown [place] [facility] [place] [address] (Case [id number] COMPLETE) LDCT LCS 1, 3 OR 6 MONTH FOLLOW U(CT Detailed) CPT:60133 Reason for Study: LCS 3 month f/u Clinical History: 01.30.2024 LRADS 4A; 5.5mm left lobe Smoking hx: 1.5ppd x 55 yrs; quit 2020 [place] has dialysis M,W,F. Please schedule for / Report Status: Verified Date Reported: MAY 03, 2024 Date Verified: MAY 03, 2024 Design Chief E-Sig: Report: EXAM: LDCT LCS 1, 3 OR 6 MONTH FOLLOW UP ADDITIONAL HISTORY: N/A COMPARISON: CT chest 01/30/2024, 10/31/2023, 04/13/2020 PROTOCOL: Screening protocol, low dose, non-contrast CT chest was performed at the local [place] facility in accordance with Lung-Rads 2022. Additional coronal and sagittal reconstructions. MIP reconstructions were reviewed. 2181 images were received by the [place] National Teleradiology Program (NTP) for interpretation. RADIATION [...] atelectasis. READING PHYSICIAN: Luz Maria Alan M.D. -[phone] 05/03/2024 12:31 EDT [facility] Teleradiology [facility] [phone] (For Medical Practitioner Use Only) Attention Patients / Veterans: If you have questions or concerns about these test results, please contact your ordering provider or primary care team. Primary Interpreting Staff: RADIOLOGY,OUTSIDE SERVICE, Staff Physician / RADIOLOGY,OUTSIDE SERVICE [facility] May 02, 2024 10:08 AM OBSTRUCTIVE SERIES : LEONARD LEWIS [id number] -1950 M Exm Date: MAY 02, 2024@10:08 Req Phys: DARRYL COBURN Pat Loc: PB-CARLYN [place] (Req'g Loc) Img Loc: PB-RADIOLOGY Service: [place] [address] (Case [id number] COMPLETE) OBSTRUCTIVE SERIES (RAD Detailed) CPT:70015 Reason for Study: nausea, constipation for 6 weeks Clinical History: nausea, constipation for 6 weeks Report Status: Verified Date Reported: MAY 02, 2024 Date Verified: MAY 02, 2024 Design Chief E-Sig:/ES/RONI MCKEON Report: Obstructive series Chest reveals [...] calcification Primary Interpreting Staff: RONI MCKEON, RADIOLOGIST (Design Chief) /RONI Hi [facility] Encounter Notes: All associated encounter notes This section contains the clinical notes associated to the Encounter. Date/Time Encounter Note(s) Provider Source May 03, 2024 12:25 PM GENERAL MEDICINE N OTE: LOCAL TITLE: General Note PB STANDARD TITLE: GENERAL MEDICINE NOTE DATE OF NOTE: MAY 03, 2024@12:25 ENTRY DATE: JUL 09, 2024@15:32:08 AUTHOR: BRANDON SEPULVEDA EXP COSIGNER: URGENCY: STATUS: COMPLETED Note completed as encounter using V15 [facility] phone encounter placed in [facility] tracking vs PB. Repeating by updating on PB ADMIN LUNG SCREENING encounter to place back into PB LCS tracking report. TRACKING OF NODULE INDICATED: Date of current image: Date: May 02, 2024 Lung RADS Score: 2 S Code: Yes Incidental Findings: The following *INCIDENTAL FINDINGS* were noted: Other: Plan: Interval until next LDCT scan is due: 12 months Patient Notification of results: Patient contacted by telephone. /sepideh/ BRANDON MARTIN BSN RN CHERRY V15 [facility] Spec RNCC Signed: 07/09/2024 15:33 BRANDON SEPULVEDA [facility]
--- OUTSIDE RECORDS SUMMARY | 2024-09-07 10:57 | XMS_ITS | Encounter Summary ---
Author Name [facility] [place] Address [address] [place] [address] Care Team Providers Care Manager Housekeeping Name Role Phone DRE ALEX Primary Care [...] PART B Mar 04, 2012 PART B [id number] [phone] LEONARD LEWIS PATIENT MEDICARE (WNR) MEDICARE (M) PART A Mar 04, 2012 PART A [id number] [phone] LEONARD LEWIS PATIENT MEDICARE (WNR) MEDICARE (M) PART B Mar 04, 2012 PART B [id number] LEONARD LEWIS PATIENT MEDICARE (WNR) MEDICARE (M) PART A Mar 04, 2012 PART A [id number] [phone] LEONARD LEWIS PATIENT MEDICARE (WNR) MEDICARE (M) PART A Mar 04, 2012 PART A [id number] LEONARD LEWIS PATIENT MEDICARE (WNR) MEDICARE (M) PART B Mar 04, 2012 PART B [id number] [phone] LEONARD LEWIS PATIENT -FO R-LIFE TRICA RE FOR LIFE WNR Aug 31, 2016 FOR LIFE [id number] LEONARD LEWIS PATIENT -FO R-LIFE TRICA RE FOR LIFE WNR Aug 31, 2016 FOR LIFE [id number] [phone] LEONARD LEWIS PATIENT Selected Encounter This section includes the information on record at [place] for the Encounter. Date/Time Encounter Type Encounter Description Reason Pro vider Source Jul 04, 2024 12:00 AM Outpatient Encounter EVENT (HISTORICAL) IHE Encounter Template Text not used by [place] Plan of Treatment: Future Appointments (+ 6 months) and Future Tests (+/- 45 days) The Plan of Treatment section includes future care activities for the patient from all [place] treatmentfacilities. This section includes future appointments and future orders which are active, pending or scheduled. Future Appointments This section includes appointments that were scheduled to occur 6 months from the date of the Encounter, up to a maximum of 20 appointments. The data comes from all [place] treatment facilities. Appointment Date/Time Appointment Type Appointme nt Facility Name Oct 30, 2024 03:00 PM AMBULATORY - MEDICINE [place] [facility] Nov 28, 2024 08:40 AM AMB[facility]ATORY - MEDICINE [facility] Active, Pending, and Scheduled Orders This section includes a listing of several types of active, pending, and scheduled orders, including clinic medications orders, diagnostic test orders, procedure orders and consult orders; where the start date of the order is 45 days before the date of the Encounter or 45 days after the date of theEncounter. The data comes from all [place] treatment facilities. Test Date/Time Test Type Test Details Facility Name Jul 11, 2024 04:25 PM Consult Order COMMUNITY CARE-COLONOSCOPY SURVEILLANCE [id number] Cons Diet Clerk's Choice [facility] Advance Directives: All historical and current Section Date Range: From patient's date of to the date document was created. This section includes ALL of a patient's completed or amended [place] Advance and Rescinded Directives. The entries below indicate that a directive exists for the patient, but an actual copy is not included with this document. The data comes from all [place] facilities. Date Advance Directives Provider Source May 07, 2014 ADVANCE DIRECTIVE JUAN GILLETTE [place] [facility] Radiology Reports: +/- 30 days of the [...] the Encounter. The data comes from all [place] treatment facilities. Date/Time Radiology Report Provider Source Jun 11, 2024 08:[address] ABDOMEN PELVIS W/O CONTRAST-P: LEONARD LEWIS [id number] -1950 M Exm Date: JUN 11, 2024@08:34 Req Phys: DRE ALEX Loc: PB-JT PACT DELTA PCP (Req'g L Img Loc: PB-CT IMAGING Service: Unknown LUZ MARIA NEWTON [facility] [place] [address] (Case [id number] COMPLETE) CT ABDOMEN AND PELVIS W/O CONTRAS(CT Detailed) CPT:10865 Reason for Study: abdominla pain, fu from AAS Clinical History: Report Status: Verified Date Reported: JUN 11, 2024 Date Verified: JUN 11, 2024 Credit Collections Clerk E-Sig:/ES/MAIKOL HINKLE Report: Procedure: CT chest/abdomen/pelvis HISTORY: Follow-up pleural effusion Contiguous multiplanar CT images of the chest/abdomen/pelvis were obtained following administration of oral contrast, but without IV contrast due to abnormal renal function. There are degenerative skeletal changes with multilevel disc disease and minimal scoliosis, but no appreciable acute osseous abnormality. There are aortic and coronary arterial atherosclerotic calcifications. There is no aortic aneurysm. There is a cardiac pacemaker via the right subclavian vein. There is a small left pleural effusion with a small adjacent LLL infiltrate. No other infiltrate is noted. There is no pulmonary mass. Heart size is normal, with no pericardial effusion. The gallbladder is surgically absent. Otherwise, the liver and biliary tree are normal, as is the spleen. The pancreas is small, and contains numerous calcifications, suggesting previous pancreatitis. There is no direct evidence of active inflammation nor is there appreciable pancreatic mass. There is a tiny stone in the mid right kidney. There is a low density focus compatible with a 2 cm simple cortical cyst in the superior pole of the right kidney. The left kidney and left adrenal gland are not identified, and are presumably surgically absent. The prostate gland and unopacified urinary bladder are normal. There is a large accumulation of stool in the colon with poor opacification of the distal bowel, even on delayed images, however, there is no appreciable specific bowel abnormality. There is no retroperitoneal lymphadenopathy, and there is no abdominal or pelvic ascites. Impression: 1. Chronic findings as noted 2. Left basilar infiltrate/effusion 3. No acute intra-abdominal/intrapelvic process Primary Interpreting Staff: MAIKOL HINKLE, RADIOLOGIST (Credit Collections Clerk) /MAIKOL Hardwick [facility] Jun 11, 2024 08:[address] THORAX, DIAGNOS TIC W/O CONTRAST: LEONARD LEWIS [id number] -1950 M Exm Date: JUN 11, 2024@08:33 Req Phys: DRE ALEX Pat Loc: PB-JT PACT DELTA PCP (Req'g L Img Loc: PB-CT IMAGING Service: Unknown LUZ [facility] [place] [address] (Case [id number] COMPLETE) CT THORAX, DIAGNOSTIC W/O CONTRAS(CT Detailed) CPT:81875 Reason for Study: fu on effusion Clinical History: can do at same time with ct abd pelvis, per Dr Mckeon request Report Status: Verified Date Reported: JUN 11, 2024 Date Verified: JUN 11, 2024 Credit Collections Clerk E-Sig:/ES/MAIKOL HINKLE Report: Procedure: CT chest/abdomen/pelvis HISTORY: Follow-up pleural effusion Contiguous multiplanar CT images of the chest/abdomen/pelvis were obtained following administration of oral contrast, but without IV contrast due to abnormal renal function. There are degenerative skeletal changes with multilevel disc disease and minimal scoliosis, but no appreciable acute osseous abnormality. There are aortic and coronary arterial atherosclerotic calcifications. There is no aortic aneurysm. There is a cardiac pacemaker via the right subclavian vein. There is a small left pleural effusion with a small adjacent LLL infiltrate. No other infiltrate is noted. There is no pulmonary mass. Heart size is normal, with no pericardial effusion. The gallbladder is surgically absent. Otherwise, the liver and biliary tree are normal, as is the spleen. The pancreas is small, and contains numerous calcifications, suggesting previous pancreatitis. There is no direct evidence of active inflammation nor is there appreciable pancreatic mass. There is a tiny stone in the mid right kidney. There is a low density focus compatible with a 2 cm simple cortical cyst in the superior pole of the right kidney. The left kidney and left adrenal gland are not identified, and are presumably surgically absent. The prostate gland and unopacified urinary bladder are normal. There is a large accumulation of stool in the colon with poor opacification of the distal bowel, even on delayed images, however, there is no appreciable specific bowel abnormality. There is no retroperitoneal lymphadenopathy, and there is no abdominal or pelvic ascites. Impression: 1. Chronic findings as noted 2. Left basilar infiltrate/effusion 3. No acute intra-abdominal/intrapelvic process Primary Interpreting Staff: MAIKOL HINKLE RADIOLOGIST (Credit Collections Clerk) /MAIKOL Hardwick [facility] Jun 11, 2024 08:08 AM CHEST X-RAY, 2 VIE WS: LEWIS,DOYLE GEE [id number] -1950 M Ex Date: JUN 11, 2024@08:08 Req Phys: DARRYL COBURN Loc: PB-CARLYN WALTON (Req'g Loc) [facility] Loc: PB-RADIOLOGY Service: Unknown LUZ MARIA NEWTON [facility] [place] [address] (Case [id number] COMPLETE) CHEST X-RAY, 2 VIEWS (RAD Detailed) CPT:63891 Reason for Study: follow-up on infiltrate Clinical History: follow-up on infiltrate Report Status: Verified Date Reported: JUN 11, 2024 Date Verified: JUN 11, 2024 Credit Collections Clerk E-Sig:/ES/RONI MCKEON Report: Chest 2 views. No recent studies available for comparison. There is blunting left costophrenic angle probably due to small effusion. Adhesions and scarring cannot ruled out. There is atelectasis versus scarring left lung base. Pleural thickening left hemithorax. Layering small effusion appears less likely. Right lung is clear. Heart normal size. Plaque thoracic aorta. There is postop changes. Sphincter. Old healed right rib fractures. Degenerative changes thoracic spine. Impression: 1. No recent studies available for comparison 2. Blunting left costophrenic angle probably due to small effusion. Adhesions and scarring cannot ruled out 3. Atelectasis versus scarring left lung base 4. Pleural thickening left hemithorax. Layering small effusion appears less likely 5. Recommend follow-up PA and lateral views of the chest in 7-10 days or sooner if clinically indicated Primary Interpreting Staff: RONI MCKEON, RADIOLOGIST (Credit Collections Clerk) /RONI Hi [facility] Encounter Notes: All associated encounter notes This section contains the clinical notes associated to the Encounter. Date/Time Encounter Note(s) Provider Source Jul 04, 2024 12:00 AM NONVA CONSULT: LOCAL TITLE: COMMUNITY CARE-CONSULT RESULT NOTE PB STANDARD TITLE: NONVA CONSULT DATE OF NOTE: JUL 04, 2024 ENTRY DATE: JUL 08, 2024@11:54:08 AUTHOR: ZAIN WYMAN EXP COSIGNER: URGENCY: STATUS: COMPLETED VistA Imaging - Scanned Document PT INITIAL EVALUATION, [facility], [id number] SCANNED DOCUMENT SIGNATURE NOT REQUIRED Electronically Filed: 07/08/2024 by: ZAIN MORENO,BUSINESS OFFICE ZAIN WYMAN [facility] Jul 04, 2024 12:00 AM NONVA CONSULT: LOCAL TITLE: COMMUNITY CARE-CONSULT RESULT NOTE PB STANDARD TITLE: NONVA CONSULT DATE OF NOTE: JUL 04, 2024 ENTRY DATE: JUL 26, 2024@09:06:17 AUTHOR: ZAIN WYMAN EXP COSIGNER: URGENCY: STATUS: COMPLETED VistA Imaging - Scanned Document PT INITIAL EVALUATION PLAN OF CARE, [id number] SCANNED DOCUMENT SIGNATURE NOT REQUIRED Electronically Filed: 07/26/2024 by: ZAIN MORENO,BUSINESS OFFICE ZAIN WYMAN [facility]
--- OUTSIDE RECORDS SUMMARY | 2024-09-07 10:57 | XMS_ITS | Encounter Summary ---
Author Name [facility] [place] Address [address] [place] [address] Care Team Providers Care Edger Hand Name Role Phone DRE ALEX Primary Care [...] PART A Mar 04, 2012 PART A [id number] LEONARD LEWIS PATIENT MEDICARE (WNR) MEDICARE (M) PART B Mar 04, 2012 PART B [id number] LEONARD LEWIS PATIENT MEDICARE (WNR) MEDICARE (M) PART A Mar 04, 2012 PART A [id number] [phone] LEONARD LEWIS PATIENT MEDICARE (WNR) MEDICARE (M) PART B Mar 04, 2012 PART B [id number] [phone] LEONARD LEWIS PATIENT MEDICARE (WNR) MEDICARE (M) PART B Mar 04, 2012 PART B [id number] LEONARD LEWIS PATIENT MEDICARE (WNR) MEDICARE (M) PART A Mar 04, 2012 PART A [id number] [phone] ELONARD LEWIS PATIENT -FO R-LIFE TRICA RE FOR LIFE WNR Aug 31, 2016 FOR LIFE [id number] [phone] LEONARD LEWIS PATIENT -FO R-LIFE TRICA RE FOR LIFE WNR Aug 31, 2016 FOR LIFE [id number] LEONARD LEWIS PATIENT Selected Encounter This section includes the information on record at [place] for the Encounter. Date/Time Encounter Type Encounter Description Reason Pro vider Source Jun 19, 2024 12:00 AM Outpatient Encounter EVENT (HISTORICAL) IHE Encounter Template Text not used by [place] Plan of Treatment: Future Appointments (+ 6 months) and Future Tests (+/- 45 days) The Plan of Treatment section includes future care activities for the patient [facility] [place] [facility] This section includes future appointments and future orders which are active, pending or scheduled. Future Appointments This section includes appointments that were scheduled to occur 6 months from the date of the Encounter, up to a maximum of 20 appointments. The data comes from all [place] treatment facilities. Appointment Date/Time Appointment Type Appointme nt Facility Name Jul 04, 2024 08:30 AM AMBULATORY - MEDICINE [facility] Oct 30, 2024 03:00 PM AMBULATORY - MEDICINE [facility] Nov 28, 2024 08:40 AM AMBULATORY - MEDICINE [facility] Active, Pending, and Scheduled Orders This section includes a listing of several types of active, pending, and scheduled orders, including clinic medications orders, diagnostic test orders, procedure orders and consult orders; where the start date of the order is 45 days before the date of the Encounter or 45 days after the date of theEncounter. The data comes from all [place] treatment facilities. Test Date/Time Test Type Test Details Facility Name Jul 11, 2024 04:25 PM Consult Order COMMUNITY CARE-COLONOSCOPY SURVEILLANCE [id number] Cons Farmworker Machine's Choice [facility] Lab Results: +/- 30 days of the encounter This section includes the Chemistry and Hematology Lab Results on record with [place] for the patient. Radiology Reports and Pathology Reports are provided separately, in subsequent sections. Lab Results This section contains the Chemistry/Hematology Results that were resulted 30 days before or 30 daysafter the date of the Encounter. Date/Time Source Result Type Result - Unit Interpretation Reference Range Comment May 23, 2024 09:01 AM [facility] [place] [facility] URIC ACID Specimen Type: PLASMA No comment entered. Ordering Provider: DRE ALEX Report Released Date/Time: May 30, 2023 11:59 AM Reporting Lab: [place] [facility] [address] [place] [address] Performing Lab: [place] [facility] [address] [place] [address] URIC ACID 2.4 mg/dL L 3.5-7.2 May 23, 2024 09:01 AM [facility] [place] [facility] B12 Specimen Type: SERUM No comment entered. Ordering Provider: DRE ALEX Report Released Date/Time: May 30, 2023 11:59 AM Reporting Lab: [place] [facility] [address] [place] [address] Performing Lab: [place] [facility] [address] [place] [address] B12 770 pg/mL 213-816 May 23, 2024 09:01 AM [facility] [place] [facility] HGA1C Specimen Type: BLOOD No comment entered. Ordering Provider: DRE ALEX Report Released Date/Time: May 30, 2023 11:59 AM Reporting Lab: [place] [facility] [address] [place] [address] Performing Lab: [place] [facility] [address] [place] [address] HGA1C 5.7 4.0-6.0 May 23, 2024 09:01 AM [facility] [place] [facility] FOLATE (PB) Specimen Type: SERUM No comment entered. Ordering Provider: DRE ALEX Report Released Date/Time: May 30, 2023 11:59 AM Reporting Lab: [place] [facility] [address] [place] [address] Performing Lab: [place] [facility] [address] [place] [address] FOLATE (PB) 17.3 ng/mL 7-20 May 23, 2024 09:01 AM [facility] VITAMIN D, 25-HYDROXY Specimen Type: SERUM No comment entered. Ordering Provider: DRE ALEX Report Released Date/Time: May 30, 2023 11:59 AM Reporting Lab: [place] [facility] [address] [place] [address] Performing Lab: [place] [facility] [address] [place] [id number] VITAMIN D, 25-HYDROXY 75.0 ng/mL 30-96 May 23, 2024 09:01 AM [facility] CHOLESTEROL PANEL (PB) Specimen Type: PLASMA No comment entered. Ordering Provider: DRE ALEX Report Released Date/Time: May 30, 2023 11:59 AM Reporting Lab: [place] [facility] [address] [place] [address] Performing Lab: [place] [facility] [address] [place] [address] CHOLESTEROL 81 mg/dL 0-200 TRIGLYCERIDE 115 mg/dL 0-150 CALCULATED LDL 20.7 mg/dL HDL(New) 37.3 mg/dL L >40 HDL % OF TOTAL CHOLESTEROL (PB) 46.0 >25 May 23, 2024 09:01 AM [facility] URINE ALBUMIN PROFILE-ih (PB) Specimen Type: URINE No comment entered. Ordering Provider: DRE ALEX Report Released Date/Time: May 30, 2023 11:59 AM Reporting Lab: [place] [facility] [address] [place] [address] Performing Lab: [place] [facility] [address] [place] [address] URINE ALBUMIN (PB-STL) 131.70 mg/L H 0-30 uACR (PB-MA) 398.73 ug/mg CREATININE URINE/OTHERS 33.03 mg/dL May 23, 2024 09:01 AM [facility] TSH (MA-PB) Specimen Type: SERUM No comment entered. Ordering Provider: DRE ALEX Report Released Date/Time: May 30, 2023 11:59 AM Reporting Lab: [place] [facility] [address] [place] [address] Performing Lab: [place] [facility] [address] [place] [address] TSH 1.732 u[IU]/mL 0.47-5 May 23, 2024 09:01 AM [facility] COMPREHENSIVE METABOLIC PANEL Specimen Type: PLASMA No comment entered. Ordering Provider: DRE ALEX Report Released Date/Time: May 30, 2023 11:59 AM Reporting Lab: [place] [facility] [address] [place] [address] Performing Lab: [place] [facility] [address] [place] [address] CREATININE 4.38 mg/dL H 0.7-1.3 UREA NITROGEN [...] 2020) 13 May 23, 2024 09:01 AM [facility] CBC Specimen Type: BLOOD No comment entered. Ordering Provider: DRE ALEX Report Released Date/Time: May 30, 2023 11:59 AM Reporting Lab: [place] [facility] [address] [place] [address] Performing Lab: [place] [facility] [address] [place] [address] WBC 6.8 10*3/uL 3.6-11.2 RBC 3.66 10*6/uL [...] 10*3/uL 0.00-0.05 May 23, 2024 09:01 AM [facility] FERRITIN Specimen Type: SERUM No comment entered. Ordering Provider: DRE ALEX Report Released Date/Time: Mar 12, 2024 04:29 PM Reporting Lab: [place] [facility] [address] [place] [address] Performing Lab: [place] [facility] [address] [place] [address] FERRITIN 2584 ng/mL H 22-275 May 23, 2024 09:01 AM [facility] IRON/TIBC PROFILE Specimen Type: PLASMA No comment entered. Ordering Provider: DRE ALEX Report Released Date/Time: Mar 12, 2024 04:29 PM Reporting Lab: [place] [facility] [address] [place] [address] Performing Lab: [place] [facility] [address] [place] [address] TIBC 220 mg/dL TRANSFERRIN 176 mg/dL 163-344 IRON SATURATION 30 20-50 IRON 67 ug/dL 65-175 Immunizations: All administered on the encounter date This section contains immunizations associated to the Encounter. Immunization Series Date Issued Reaction Comments INFLUENZA, UNSPECIFIED FORMULATION Jun 19, 2024 Advance Directives: All historical and current Section Date Range: From patient's date of to the date document was created. This section includes ALL of a patient's completed or amended [place] Advance and Rescinded Directives. The entries below indicate that a directive exists for the patient, but an actual copy is not included with this document. The data comes from all [place] facilities. Date Advance Directives Provider Source May 07, 2014 ADVANCE DIRECTIVE JUAN GILLETTE [facility] Radiology Reports: +/- 30 days [...] CT ABDOMEN PELVIS W/O CONTRAST-P: LEONARD LEWIS [id number] -1950 M Exm Date: JUN 11, 2024@08:34 Req Phys: DRE ALEX Loc: PB-JT PACT DELTA PCP (Aleksandar'justine Barkley Img Loc: PB-CT IMAGING Service: [place] [address] (Case [id number] COMPLETE) CT ABDOMEN AND PELVIS W/O CONTRAS(CT Detailed) CPT:08336 Reason for Study: abdominla pain, fu from AAS Clinical History: Report Status: Verified Date Reported: JUN 11, 2024 Date Verified: JUN 11, 2024 Tool Checker E-Sig:/ES/MAIKOL HINKLE Report: Procedure: CT chest/abdomen/pelvis HISTORY: [...] process Primary Interpreting Staff: MAIKOL HINKLE, RADIOLOGIST (Tool Checker) /MAIKOL Hardwick [facility] Jun 11, 2024 08:[address] THORAX, DIAGNOS TIC W/O CONTRAST: LEONARD LEWIS [id number] -1950 M Exm Date: JUN 11, 2024@08:33 Req Phys: DRE ALEX Loc: PB-JT PACT DELTA PCP (Req'g L Img Loc: PB-CT IMAGING Service: [place] [address] (Case [id number] COMPLETE) CT THORAX, DIAGNOSTIC W/O CONTRAS(CT Detailed) CPT:53550 Reason for Study: fu on effusion Clinical History: can do at same time with ct abd pelvis, per Dr Mckeon request Report Status: Verified Date Reported: JUN 11, 2024 Date Verified: JUN 11, 2024 Tool Checker E-Sig:/ES/MAIKOL HINKLE Report: Procedure: CT chest/abdomen/pelvis HISTORY: [...] process Primary Interpreting Staff: MAIKOL HINKLE RADIOLOGIST (Tool Checker) /MAIKOL Hardwick [facility] Jun 11, 2024 08:08 AM CHEST X-RAY, 2 VIE WS: LEWIS,VALLEMARIA TERESA FLYNN [id number] -1950 M Ex Date: JUN 11, 2024@08:08 Req Phys: DARRYL COBURN Pat Loc: PB-CARLYN WALTON (Req'g Loc) [facility] [place]: PB-RADIOLOGY Service: Unknown LUZ MARIA NEWTON [facility] [place] [address] (Case [id number] COMPLETE) CHEST X-RAY, 2 VIEWS (RAD Detailed) CPT:11735 Reason for Study: follow-up on infiltrate Clinical History: follow-up on infiltrate Report Status: Verified Date Reported: JUN 11, 2024 Date Verified: JUN 11, 2024 Tool Checker E-Sig:/ES/RONI MCKEON Report: Chest 2 views. No [...] indicated Primary Interpreting Staff: RONI MCKEON, RADIOLOGIST (Tool Checker) /RONI Hi [place] [facility] May 30, 2024 10:23 AM OBSTRUCTIVE SERIES : LEONARD LEWIS [id number] -1950 M Exm Date: MAY 30, 2024@10:23 Req Phys: DRE ALEX Pat Loc: PB-JT PACT DELTA PCP (Req'g L Img Loc: PB-XRAY [place] Service: [place] [address] (Case [id number] COMPLETE) OBSTRUCTIVE SERIES (RAD Detailed) CPT:77541 Reason for Study: nausea vomiting Clinical History: x2 months, csardiac work up neg Report Status: Verified Date Reported: MAY 30, 2024 Date Verified: MAY 30, 2024 Tool Checker E-Sig: Report: Obstructive series Reveals emphysematous changes. [...] consult Primary Interpreting Staff: RONI MCKEON, RADIOLOGIST (Tool Checker, no e-sig) /RONI Hi [facility]
--- OUTSIDE RECORDS SUMMARY | 2024-09-07 10:57 | XMS_ITS | Encounter Summary ---
Author Name [facility] [facility] [place] [facility] [place] [facility] [place] Address [address] [place] [address] Care Team Providers Care Framing Carpenter Name Role Phone DRE ALEX Primary Care [...] PART A Mar 04, 2012 PART A [id number] LEONARD LEWIS PATIENT MEDICARE (WNR) MEDICARE (M) PART B Mar 04, 2012 PART B [id number] LEONARD LEWIS PATIENT MEDICARE (WNR) MEDICARE (M) PART A Mar 04, 2012 PART A [id number] LEONARD LEWIS PATIENT MEDICARE (WNR) MEDICARE (M) PART B Mar 04, 2012 PART B [id number] LEONARD LEWIS PATIENT MEDICARE (WNR) MEDICARE (M) PART B Mar 04, 2012 PART B [id number] LEONARD LEWIS PATIENT MEDICARE (WNR) MEDICARE (M) PART A Mar 04, 2012 PART A [id number] [phone] LEONARD LEWIS PATIENT -FO R-LIFE [facility] RE FOR LIFE WNR Aug 31, 2016 FOR LIFE [id number] [phone] LEONARD LEWIS PATIENT -FO R-LIFE [facility] RE FOR LIFE WNR Aug 31, 2016 FOR LIFE [id number] LEONARD LEWIS PATIENT Selected Encounter This section includes the information on record at [place] for the Encounter. Date/Time Encounter Type Encounter Description Reason Pro vider Source Jun 26, 2024 10:17 AM Outpatient Encounter PRIMARY CARE/MEDICINE IHE Encounter Template Text not used by [place] Plan of Treatment: Future Appointments (+ 6 months) and Future Tests (+/- 45 days) The Plan of Treatment section includes future care activities for the [facility] [place] [facility] This section includes future appointments and future orders which are active, pending or scheduled. Future Appointments This section includes appointments that were scheduled to occur 6 months from the date of the Encounter, up to a maximum of 20 appointments. The data comes from all [place] treatment facilities. Appointment Date/Time Appointment Type Appointme nt Facility Name Jul 04, 2024 08:30 AM AMBULATORY - MEDICINE [facility] Oct 30, 2024 03:00 PM AMBULATORY - MEDICINE [facility] Nov 28, 2024 08:40 AM AMBULATORY - MEDICINE [facility] Active, Pending, and Scheduled Orders This section includes a listing of several types of active, pending, and scheduled orders, including clinic medications orders, diagnostic test orders, procedure orders and consult orders; where the start date of the order is 45 days before the date of the Encounter or 45 days after the date of theEncounter. The data comes from all [place] treatment facilities. Test Date/Time Test Type Test Details Facility Name Jul 11, 2024 04:25 PM Consult Order [facility]ONOSCOPY [facility] [id number] Cons Research Professor's Choice [facility] Advance Directives: All historical and current Section Date Range: From patient's date of to the date document was created. This section includes ALL of a patient's completed or amended [place] Advance and Rescinded Directives. The entries below indicate that a directive exists for the patient, but an actual copy is not included with this document. The data comes from all [place] facilities. Date Advance Directives Provider Source May 07, 2014 ADVANCE DIRECTIVE JUAN GILLETTE [facility] [place] [facility] Radiology Reports: +/- 30 days of [...] the Encounter. The data comes from all [place] treatment facilities. Date/Time Radiology Report Provider Source Jun 11, 2024 08:[address] ABDOMEN PELVIS W/O CONTRAST-P: LEONARD LEWIS [facility] [id number] -1950 M Exm Date: JUN 11, 2024@08:34 Req Phys: DRE ALEX Loc: PB-JT PACT DELTA PCP (Req'g L Img Loc: PB-CT IMAGING Service: Unknown LUZ MARIA [place] [facility] [place] [address] (Case [id number] COMPLETE) CT ABDOMEN AND PELVIS W/O CONTRAS(CT Detailed) CPT:91626 Reason for Study: abdominla pain, fu from AAS Clinical History: Report Status: Verified Date Reported: JUN 11, 2024 Date Verified: JUN 11, 2024 Applied Technologist E-Sig:/ES/MAIKOL HINKLE Report: Procedure: CT chest/abdomen/pelvis HISTORY: [...] process Primary Interpreting Staff: MAIKOL HINKLE, RADIOLOGIST (Applied Technologist) /MAIKOL Hardwick [facility] Jun 11, 2024 08:[address] THORAX, DIAGNOS TIC W/O CONTRAST: LEONARD LEWIS [id number] -1950 M Exm Date: JUN 11, 2024@08:33 Req Phys: DRE ALEX Loc: PB-JT PACT DELTA PCP (Aleksandar'g L Img Loc: PB-CT IMAGING Service: Unknown [facility] [place] [address] (Case [id number] COMPLETE) CT THORAX, DIAGNOSTIC W/O CONTRAS(CT Detailed) CPT:96337 Reason for Study: fu on effusion Clinical History: can do at same time with ct abd pelvis, per Dr Mckeon request Report Status: Verified Date Reported: JUN 11, 2024 Date Verified: JUN 11, 2024 Applied Technologist E-Sig:/ES/MAIKOL HINKLE Report: Procedure: CT chest/abdomen/pelvis HISTORY: [...] process Primary Interpreting Staff: MAIKOL HINKLE, RADIOLOGIST (Applied Technologist) /MAIKOL Hardwick [facility] Jun 11, 2024 08:08 AM CHEST X-RAY, 2 VIE WS: LEONARD LEWIS [id number] -1950 [facility] Date: JUN 11, 2024@08:08 Req Phys: DARRYL COBURN Loc: PB-CARLYN WALTON (Req'g Loc) [facility] [place] Loc: PB-RADIOLOGY Service: Unknown LUZ MARIA [facility] RICARDO VASYLJIMMY [place] [address] (Case [id number] COMPLETE) CHEST X-RAY, 2 VIEWS (RAD Detailed) CPT:91953 Reason for Study: follow-up on infiltrate Clinical History: follow-up on infiltrate Report Status: Verified Date Reported: JUN 11, 2024 Date Verified: JUN 11, 2024 Applied Technologist E-Sig:/ES/RONI MCKEON Report: Chest 2 views. No [...] indicated Primary Interpreting Staff: RONI MCKEON, RADIOLOGIST (Applied Technologist) /RONI Hi [facility] May 30, 2024 10:23 AM OBSTRUCTIVE SERIES : LEONARD LEWIS [id number] -1950 M Exm Date: MAY 30, 2024@10:23 Req Phys: DRE ALEX Pat Loc: PB-JT PACT DELTA PCP (Req'g L Img Loc: PB-XRAY [place] Service: [place] [address] (Case [id number] COMPLETE) OBSTRUCTIVE SERIES (RAD Detailed) CPT:00145 Reason for Study: nausea vomiting Clinical History: x2 months, csardiac work up neg Report Status: Verified Date Reported: MAY 30, 2024 Date Verified: MAY 30, 2024 Applied Technologist E-Sig: Report: Obstructive series Reveals emphysematous changes. [...] consult Primary Interpreting Staff: RONI MCKEON, RADIOLOGIST (Applied Technologist, no e-sig) /RONI Hi [facility] Encounter Notes: All associated encounter notes This section contains the clinical notes associated to the Encounter. Date/Time Encounter Note(s) Provider Source Jun 26, 2024 10:17 AM IMMUNIZATION PROGR ESS NOTE: LOCAL TITLE: [facility]IC PB STANDARD TITLE: IMMUNIZATION PROGRESS NOTE DATE OF NOTE: JUN 26, 2024@10:17 ENTRY DATE: JUN 26, 2024@10:17:21 AUTHOR: JASON SALINAS EXP COSIGNER: URGENCY: STATUS: COMPLETED The patient has received the seasonal influenza vaccine for the current season at another location. Documented: INFLUENZA, UNSPECIFIED FORMULATION Historical Date Administered: Jun 19, 2024 Outside [facility] Information Source: FROM PATIENT'S WRITTEN RECORD /sepideh/ PRISCILLA Clement, RN [place] Team RN Signed: 06/26/2024 10:[address] [facility]
--- OUTSIDE RECORDS SUMMARY | 2024-09-07 10:57 | XMS_ITS | Encounter Summary ---
Author Name [facility] ([place]) Organization [facility] [place] Address [address] [place] [address] Care Team Providers Care Leno Sewer Name Role Phone DRE ALEX Primary Care [...] PART B Mar 04, 2012 PART B [id number] [phone] LEONARD LEWIS PATIENT MEDICARE (WNR) MEDICARE (M) PART A Mar 04, 2012 PART A [id number] LEONARD LEWIS PATIENT MEDICARE (WNR) MEDICARE (M) PART A Mar 04, 2012 PART A [id number] LEONARD LEWIS PATIENT MEDICARE (WNR) MEDICARE (M) PART B Mar 04, 2012 PART B [id number] [phone] LEONARD LEWIS PATIENT MEDICARE (WNR) MEDICARE (M) PART A Mar 04, 2012 PART A [id number] LEONARD LEWIS PATIENT MEDICARE (WNR) MEDICARE (M) PART B Mar 04, 2012 PART B [id number] LEONARD LEWIS PATIENT -FO R-LIFE [facility] RE FOR LIFE WNR Aug 31, 2016 FOR LIFE [id number] LEONARD LEWIS PATIENT -FO R-LIFE [place] RE FOR LIFE WNR Aug 31, 2016 FOR LIFE [id number] [phone] LEONARD LEWIS PATIENT Selected Encounter This section includes the information on record at OR for the Encounter. Date/Time Encounter Type Encounter Description Reason Provider Source May 30, 2024 09:00 AM OFFICE O/P EST HI 40 MIN PRIMARY CARE/MEDICINE ICD-10-CM Z00.01 Encounter for general adult medical exam w abnormal findings DRE ALEX Encounter Template Text not used by OR Assessments - Encounter Diagnoses This section includes the primary and secondary diagnoses documented for the Encounter. Date/Time Primary/Secondary Diagnosis Diagnosis Name Provider Source Jun 03, 2024 07:17 AM PRIMARY Encounter for general adult medical exam w abnormal findings DRE ALEX [place] [facility] Jun 03, 2024 07:17 AM SECONDARY Anemia, unspecified DRE ALEX [place] [facility] Jun 03, 2024 07:17 AM SECONDARY Athscl heart disease of [place] coronary artery w/o ang pctrs DRE [place] [facility] Jun 03, 2024 07:17 AM SECONDARY Chronic obstructive pulmonary disease, unspecified [facility] Jun 03, 2024 07:17 AM SECONDARY Dependence on renal dialysis [facility] Jun 03, 2024 07:17 AM SECONDARY Essential (primary) hypertension [facility] Jun 03, 2024 07:17 AM SECONDARY Malignant neoplasm of unspecified renal pelvis [facility] Jun 03, 2024 07:17 AM SECONDARY Other chronic pancreatitis [facility] Jun 03, 2024 07:17 AM SECONDARY Peripheral vascular disease, unspecified [facility]RE [facility]LEX [facility] Jun 03, 2024 07:17 AM SECONDARY Prsnl hx of TIA (TIA), and cereb infrc w/o resid deficits [facility]RE [facility]LEX [facility] Jun 03, 2024 07:17 AM SECONDARY Type 2 diabetes mellitus with diabetic neuropathy, unsp DRE ALEX [facility] Plan of Treatment: Future Appointments (+ 6 months) and Future Tests (+/- 45 days) The Plan of Treatment section includes future care activities for the patient from [facility] [place] [facility] [place] This section includes future appointments and future orders which are active, pending or scheduled. Future Appointments This section includes appointments that were scheduled to occur 6 months from the date of the Encounter, up to a maximum of 20 appointments. The data comes from all [facility] facilities. Appointment Date/Time Appointment Type Appointme nt Facility Name Jun 11, 2024 11:30 AM AMBULATORY - NONE RICARDO CASTAÑEDA [facility] Jul 04, 2024 08:30 AM [facility] Oct 30, 2024 03:00 PM AMBULATORY - MEDICINE [facility] Active, Pending, and Scheduled Orders This section includes a listing of several types of active, pending, and scheduled orders, including clinic medications orders, diagnostic test orders, procedure orders and consult orders; where the start date of the order is 45 days before the date of the Encounter or 45 days after the date of theEncounter. The data comes from all [facility]. Test Date/Time Test Type Test Details Facility Name Jul 11, 2024 04:25 PM Consult Order [facility] [id number] Cons Production Engineer's Choice [facility] Lab Results: +/- 30 days of the encounter This section includes the Chemistry and Hematology Lab Results on record with OR for the patient. Radiology Reports and Pathology Reports are provided separately, in subsequent sections. Lab Results This section contains the Chemistry/Hematology Results that were resulted 30 days before or 30 daysafter the date of the Encounter. Date/Time Source Result Type Result - Unit Interpretation Reference Range Comment May 23, 2024 09:01 AM [facility] URIC ACID Specimen Type: PLASMA No comment entered. Ordering Provider: DRE ALEX Report Released Date/Time: May 30, 2023 11:59 AM Reporting Lab: [place] [facility] [address] [place] [address] Performing Lab: [place] [facility] [address] [place] [address] URIC ACID 2.4 mg/dL L 3.5-7.2 May 23, 2024 09:01 AM [place] [facility] FOLATE (PB) Specimen Type: SERUM No comment entered. Ordering Provider: DRE ALEX Report Released Date/Time: May 30, 2023 11:59 AM Reporting Lab: [place] [facility] [address] [place] [address] Performing Lab: [place] [facility] [address] [place] [address] FOLATE (PB) 17.3 ng/mL 7-20 May 23, 2024 09:01 AM [place] [facility] B12 Specimen Type: SERUM No comment entered. Ordering Provider: DRE ALEX Report Released Date/Time: May 30, 2023 11:59 AM Reporting Lab: [place] [facility] [address] [place] [address] Performing Lab: [place] [facility] [address] [place] [address] B12 770 pg/mL 213-816 May 23, 2024 09:01 AM [facility] HGA1C Specimen Type: BLOOD No comment entered. Ordering Provider: DRE ALEX Report Released Date/Time: May 30, 2023 11:59 AM Reporting Lab: [place] [facility] [address] [place] [address] Performing Lab: [place] [facility] [address] [place] [address] HGA1C 5.7 4.0-6.0 May 23, 2024 09:01 AM [place] [facility] TSH (MA-PB) Specimen Type: SERUM No comment entered. Ordering Provider: DRE ALEX Report Released Date/Time: May 30, 2023 11:59 AM Reporting Lab: [place] [facility] [address] [place] [address] Performing Lab: [place] [facility] [address] [place] [address] TSH 1.732 u[IU]/mL 0.47-5 May 23, 2024 09:01 AM [facility] CHOLESTEROL PANEL (PB) Specimen Type: PLASMA No comment entered. Ordering Provider: DRE ALEX Report Released Date/Time: May 30, 2023 11:59 AM Reporting Lab: [place] [facility] [address] [place] [address] Performing Lab: [place] [facility] [address] [place] [address] CHOLESTEROL 81 mg/dL 0-200 TRIGLYCERIDE 115 mg/dL 0-150 CALCULATED LDL 20.7 mg/dL HDL(New) 37.3 mg/dL L >40 HDL % OF TOTAL CHOLESTEROL (PB) 46.0 >25 May 23, 2024 09:01 AM [facility] VITAMIN D, 25-HYDROXY Specimen Type: SERUM No comment entered. Ordering Provider: DRE ALEX Report Released Date/Time: May 30, 2023 11:59 AM Reporting Lab: [place] [facility] [address] [place] [address] Performing Lab: [place] [facility] [address] [place] [address] VITAMIN D, 25-HYDROXY 75.0 ng/mL 30-96 May 23, 2024 09:01 AM [facility] URINE ALBUMIN PROFILE-ih (PB) Specimen Type: URINE No comment entered. Ordering Provider: DRE ALEX Report Released Date/Time: May 30, 2023 11:59 AM Reporting Lab: [place] [facility] [address] [place] [address] Performing Lab: [place] [facility] [address] [place] [address] URINE ALBUMIN (PB-STL) 131.70 mg/L H 0-30 uACR (PB-MA) 398.73 ug/mg CREATININE URINE/OTHERS 33.03 mg/dL May 23, 2024 09:01 AM [facility] COMPREHENSIVE METABOLIC PANEL Specimen Type: PLASMA No comment entered. Ordering Provider: DRE ALEX Report Released Date/Time: May 30, 2023 11:59 AM Reporting Lab: [place] [facility] [address] [place] [address] Performing Lab: [place] [facility] [address] [place] [address] CREATININE 4.38 mg/dL H 0.7-1.3 UREA NITROGEN [...] 2020) 13 May 23, 2024 09:01 AM [facility] CB CBC Specimen Type: BLOOD No comment entered. Ordering Provider: DRE ALEX Report Released Date/Time: May 30, 2023 11:59 AM Reporting Lab: [place] [facility] [address] [place] [address] Performing Lab: [place] [facility] [address] [place] [address] WBC 6.8 10*3/uL 3.6-11.2 RBC 3.66 10*6/uL [...] 10*3/uL 0.00-0.05 May 23, 2024 09:01 AM [facility] FERRITIN Specimen Type: SERUM No comment entered. Ordering Provider: DRE ALEX Report Released Date/Time: Mar 12, 2024 04:29 PM Reporting Lab: [place] [facility] [address] [place] [address] Performing Lab: [place] [facility] [address] [place] [address] FERRITIN 2584 ng/mL H 22-275 May 23, 2024 09:01 AM [facility] IRON/TIBC PROFILE Specimen Type: PLASMA No comment entered. Ordering Provider: DRE ALEX Report Released Date/Time: Mar 12, 2024 04:29 PM Reporting Lab: [place] [facility] [address] [place] [address] Performing Lab: [place] [facility] [address] [place] [address] TIBC 220 mg/dL TRANSFERRIN 176 mg/dL 163-344 IRON SATURATION 30 20-50 IRON 67 ug/dL 65-175 May 02, 2024 10:09 AM [place] [facility] MAGNESIUM Specimen Type: PLASMA No comment entered. Ordering Provider: MELINDA COBURN Report Released Date/Time: May 02, 2024 10:01 AM Reporting Lab: [place] [facility] [address] [place] [address] Performing Lab: [place] [facility] [address] [place] [address] MAGNESIUM 1.59 mg/dL L 1.6-2.6 May 02, 2024 10:09 AM [place] [facility] HEPATIC FUNCTION PROFILE (PB) Specimen Type: PLASMA No comment entered. Ordering Provider: MELINDA COBURN Report Released Date/Time: May 02, 2024 10:01 AM Reporting Lab: [place] [facility] [address] [place] [address] Performing Lab: [place] [facility] [address] [place] [address] PROTEIN 6.9 g/dL 6-8.6 ALBUMIN 4.2 g/dL 3.4-5 TOTAL BILIRUBIN 0.7 mg/dL 0.2-1.2 ALKALINE PHOSPHATASE 85 U/L 40-150 AST/SGOT 20 U/L 5-34 ALT/SGPT 27 U/L 8-40 CONJ. BILIRUBIN 0.3 mg/dL 0-0.5 May 02, 2024 10:09 AM [place] [facility] LIPASE Specimen Type: PLASMA No comment entered. Ordering Provider: MELINDA COBURN Report Released Date/Time: May 02, 2024 10:01 AM Reporting Lab: [place] [facility] [address] [place] [address] Performing Lab: [place] [facility] [address] [place] [address] LIPASE <4 U/L L 8-78 May 02, 2024 10:09 AM [place] [facility] AMYLASE Specimen Type: PLASMA No comment entered. Ordering Provider: MELINDA COBURN Report Released Date/Time: May 02, 2024 10:01 AM Reporting Lab: [place] [facility] [address] [place] [address] Performing Lab: [place] [facility] [address] [place] [address] AMYLASE 47 U/L 25-125 May 02, 2024 10:09 AM [place] [facility] BASIC METABOLIC PANEL Specimen Type: PLASMA No comment entered. Ordering Provider: MELINDA COBURN Report Released Date/Time: May 02, 2024 10:01 AM Reporting Lab: [place] [facility] [address] [place] [address] Performing Lab: [place] [facility] [address] [place] [address] CREATININE 4.65 mg/dL H 0.7-1.3 UREA NITROGEN 28 mg/dL H 9-25 GLUCOSE 147 mg/dL H 72-99 SODIUM 140 meq/L 136-145 POTASSIUM 4.2 meq/L 3.5-5 CHLORIDE 96 meq/L L 98-107 CARBON DIOXIDE 32 meq/L H 22-31 CALCIUM 9.3 mg/dL 8.4-10.4 EGFR (CKD-EPI 2020) 12 May 02, 2024 10:09 AM [facility] URIC ACID Specimen Type: PLASMA No comment entered. Ordering Provider: MELINDA COBURN Report Released Date/Time: May 02, 2024 10:01 AM Reporting Lab: [place] [facility] [address] [place] [phone] Performing Lab: [facility] [address] [facility] [address] [facility] [place] [phone] URIC ACID 2.6 mg/dL L 3.5-7.2 May 02, 2024 10:09 AM [facility] CBC Specimen Type: BLOOD No comment entered. Ordering Provider: MELINDA COBURN Report Released Date/Time: May 02, 2024 10:01 AM Reporting Lab: [place] [facility] [address] [place] [phone] Performing Lab: [place] [facility] [address] [place] [facility] WBC 7.2 10*3/uL 3.6-11.2 RBC 3.44 10*6/uL [...] Height Weight Body Mass Index Source May 30, 2024 09:25 AM 97.3 64 125/74 18 96 0 67.0 168.6 26 [facility] Social History: Smoking Status (Most [...] took place. Date/Time Current Smoking Status Comment [facility] May 30, 2024 09:00 AM VA-TOBACCO FORMER USER [facility] Tobacco Use History This section includes a history of the smoking, or tobacco-related health factors, that were collected on or before the date of the Encounter. The data comes from the OR facility where the Encounter took place. Date/Time Smoking Status/Tobac co Use Comment Facility May 30, 2024 09:00 AM VA-TOBACCO QUIT 15 YRS OR MORE [facility] Apr 26, 2023 02:30 PM VA-TOBACCO FORMER USER [facility] Apr 26, 2023 02:30 PM VA-TOBACCO QUIT 1 TO < 5 YRS [facility] May 26, 2022 09:00 AM VA-TOBACCO FORMER USER [facility] May 26, 2022 09:00 AM VA-TOBACCO QUIT 1 TO < 5 YRS [facility] May 06, 2021 10:30 AM VA-TOBACCO USE 30 YEARS OR MORE [facility] May 06, 2021 10:30 AM VA-TOBACCO USE ADVICE [place] [facility] May 06, 2021 10:30 AM 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 LEADER 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 NO [place] [facility] May 06, 2021 10:30 AM VA-TOBACCO USE MED NO [place] [facility] May 06, 2021 10:30 AM VA-TOBACCO USE WI 30 MIN OF WAKEUP [place] [facility] May 06, 2021 10:30 AM VA-TOBACCO USER EVERY DAY [place] [facility] Oct 22, 2019 10:03 AM VA-TOBACCO USE 30 YEARS OR MORE [place] [facility] Oct 22, 2019 10:03 AM VA-TOBACCO USE ADVICE [facility] Oct 22, 2019 10:03 AM 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 LEADER 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 NO [facility] Oct 22, 2019 10:03 AM VA-TOBACCO USE MED NO [facility] Oct 22, 2019 10:03 AM VA-TOBACCO USE WI 30 MIN OF WAKEUP [facility] Oct 22, 2019 10:03 AM VA-TOBACCO USER EVERY DAY [facility] Apr 18, 2019 10:01 AM CURRENT NON-TOBACC O USER-HX OF USE [facility] Apr 18, 2019 10:01 AM CURRENT TOBACCO USER [facility] Apr 18, 2019 10:01 AM VA-TOBACCO USE 30 YEARS OR MORE [facility] Apr 18, 2019 10:01 AM VA-TOBACCO USE ADVICE [facility] Apr 18, 2019 10:01 AM 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 LEADER SURGERY NO [facility] Apr 18, 2019 10:01 AM VA-TOBACCO USE MED NO [facility] Apr 18, 2019 10:01 AM VA-TOBACCO USE WI 30 MIN OF WAKEUP [place] [facility] Apr 18, 2019 10:01 AM VA-TOBACCO USER EVERY DAY [facility] Mar 18, 2019 10:21 AM CURRENT TOBACCO USER [facility] Sep 18, 2018 09:56 AM CURRENT NON-TOBACC O USER-HX OF USE [facility] Jun 19, 2018 10:55 AM CURRENT TOBACCO USER [facility] Jun 19, 2018 10:55 AM CURRENT TOBACCO US ER (NOT READY TO QUIT) [place] [facility] Jun 19, 2018 10:55 AM TOBACCO CESSATION REFERRAL DECLINED [facility] Jun 19, 2018 10:55 AM TOBACCO MEDS OFFER ED BUT DECLINED [place] [facility] Jun 19, 2018 10:55 AM TOBACCO USER OFFERED MEDS [place] [facility] Mar 13, 2018 11:20 AM CURRENT TOBACCO USER [place] [facility] Mar 13, 2018 11:20 AM CURRENT TOBACCO US ER (NOT READY TO QUIT) [place] [facility] Mar 13, 2018 [...] AM QUIT TOBACCO >7 YEARS AGO [place] [facility] Sep 08, 2014 09:56 AM CURRENT TOBACCO USER [place] [facility] Sep 08, 2014 09:[address] [facility] SMOKING CLIN[facility] Aug 21, 2013 08:15 AM CURRENT TOBACCO USER [place] [facility] Aug 21, 2013 08:[address] [facility]MOKING [facility] January 23, 2012 02:12 PM CURRENT TOBACCO USER [place] [facility] January 23, 2012 02:12 PM TOBACCO MEDS OFFER ED BUT DECLINED [place] [facility] January 23, 2012 02:12 PM TOBACCO OFFERED PT MEDS (PROVIDER) [facility] January 23, 2012 02:[address] [facility] [place] [facility] Jul 27, 2011 08:46 AM TOBACCO MEDS OFFER ED BUT DECLINED [place] [facility] Jul 27, 2011 08:46 AM TOBACCO OFFERED PT MEDS (PROVIDER) [facility] Jul 27, 2011 08:[address] [facility] [place] [facility] May 20, 2011 11:24 AM TOBACCO MEDS OFFER ED BUT DECLINED [place] [facility] May 20, 2011 11:24 AM TOBACCO OFFERED PT MEDS (PROVIDER) [facility] May 20, 2011 11:[address] OP [facility]MOKING CLINIC [facility] January 17, 2011 08:35 AM [facility] January 17, 2011 08:[address] OP SMOKING CLINIC [facility] Jul 12, 2010 01:47 PM TOB INFO ON NON-VA STOP SMOKING CLINIC will start smoking cessation classes 2010 [facility] Jul 12, 2010 01:47 PM TOBACCO MEDS OFFER ED BUT DECLINED [facility] Jul 12, 2010 01:47 PM TOBACCO OFFERED PT MEDS (PROVIDER) declined [facility] Jul 12, 2010 01:[address] [facility]MOKING CLINIC will start smoking cessation classes, Sep 08, 2010 [facility] Dec 09, 2009 02:09 PM CURRENT TOBACCO USER [facility] Dec 09, 2009 02:09 PM TOBACCO OFFERED PT MEDS (PROVIDER) [facility] Dec 09, 2009 02:[address] OP SMOKING CLINIC [facility] Dec 09, 2009 02:09 PM TOBACCO OFFERRED P T MEDS (PROVIDER) [facility] Advance Directives: All historical [...] 07, 2014 ADVANCE DIRECTIVE JUAN GILLETTE ALDEN [facility] Radiology Reports: +/- 30 days of the [...] the Encounter. The data comes from all [place] treatment facilities. Date/Time Radiology Report Provider Source Jun 11, 2024 08:[address] ABDOMEN PELVIS W/O CONTRAST-P: LEONARD LEWIS [id number] -1950 M Exm Date: JUN 11, 2024@08:34 Req Phys: DRE ALEX Loc: PB-JT PACT DELTA PCP (Enoch Chrisg Loc: PB-CT IMAGING Service: Unknown [facility] [facility] [place] [address] (Case [id number] COMPLETE) CT ABDOMEN AND PELVIS W/O CONTRAS(CT Detailed) CPT:24998 Reason for Study: abdominla pain, fu from AAS Clinical History: Report Status: Verified Date Reported: JUN 11, 2024 Date Verified: JUN 11, 2024 Intake Man E-Sig:/ES/MAIKOL HINKLE Report: Procedure: CT chest/abdomen/pelvis HISTORY: [...] process Primary Interpreting Staff: MAIKOL HINKLE, RADIOLOGIST (Intake Man) /MAIKOL Hardwick [facility] Jun 11, 2024 08:[address] THORAX, DIAGNOS TIC W/O CONTRAST: LEONARD LEWIS [id number] -1950 M Exm Date: JUN 11, 2024@08:33 Req Phys: DRE ALEX Loc: PB-JT PACT DELTA PCP (Req'g L Img Loc: PB-CT IMAGING Service: Unknown [facility] [place] [address] (Case [id number] COMPLETE) CT THORAX, DIAGNOSTIC W/O CONTRAS(CT Detailed) CPT:22969 Reason for Study: fu on effusion Clinical History: can do at same time with ct abd pelvis, per Dr Mckeon request Report Status: Verified Date Reported: JUN 11, 2024 Date Verified: JUN 11, 2024 Intake Man E-Sig:/ES/MAIKOL HINKLE Report: Procedure: CT chest/abdomen/pelvis HISTORY: [...] process Primary Interpreting Staff: MAIKOL HINKLE RADIOLOGIST (Intake Man) /MAIKOL [place] [facility] Jun 11, 2024 08:08 AM CHEST X-RAY, 2 VIE WS: LEONARD LEWISA [id number] -1950 M Exm Date: JUN 11, 2024@08:08 Req Phys: DARRYL COBURN Loc: PB-UC MD (Req'g Loc) Img Loc: PB-RADIOLOGY Service: Unknown [facility] [place] [address] (Case [id number] COMPLETE) CHEST X-RAY, 2 VIEWS (RAD Detailed) CPT:18462 Reason for Study: follow-up on infiltrate Clinical History: follow-up on infiltrate Report Status: Verified Date Reported: JUN 11, 2024 Date Verified: JUN 11, 2024 Intake Man E-Sig:/ES/RONI MCKEON Report: Chest 2 views. No [...] indicated Primary Interpreting Staff: RONI MCKEON, RADIOLOGIST (Intake Man) /RONI Hi [place] [facility] May 30, 2024 10:23 AM OBSTRUCTIVE SERIES : LEONARD LEWISA [id number] -1950 M Exm Date: MAY 30, 2024@10:23 Req Phys: DRE ALEX Loc: PB-JT PACT DELTA PCP (Req'g L Img Loc: PB-XRAY [place] Service: [place] [address] (Case [id number] COMPLETE) OBSTRUCTIVE SERIES (RAD Detailed) CPT:33565 Reason for Study: nausea vomiting Clinical History: x2 months, csardiac work up neg Report Status: Verified Date Reported: MAY 30, 2024 Date Verified: MAY 30, 2024 Intake Man E-Sig: Report: Obstructive series Reveals emphysematous changes. [...] consult Primary Interpreting Staff: RONI MCKEON, RADIOLOGIST (Intake Man, no e-sig) /RONI [place] [facility] May 02, 2024 11:47 AM LDCT LCS 1, 3 OR 6 MONTH FOLLOW UP: LEONARD LEWIS [id number] -1950 M Ex Date: MAY 02, 2024@11:47 Req Phys: GABRIELE WARREN Loc: PB-PHONE LUNG SCREEN (Req'g Lo Img Loc: PB-CT IMAGING Service: Unknown [facility] [place] [address] (Case [id number] COMPLETE) LDCT LCS 1, 3 OR 6 MONTH FOLLOW U(CT Detailed) CPT:24998 Reason for Study: LCS 3 month f/u Clinical History: 01.30.2024 LRADS 4A; 5.5mm left lobe Smoking hx: 1.5ppd x 55 yrs; quit 2020 Orma has dialysis M,W,F. Please schedule for / Report Status: Verified Date Reported: MAY 03, 2024 Date Verified: MAY 03, 2024 Intake Man E-Sig: Report: EXAM: LDCT LCS 1, 3 OR 6 MONTH FOLLOW UP ADDITIONAL HISTORY: N/A COMPARISON: CT chest 01/30/2024, 10/31/2023, 04/13/2020 PROTOCOL: Screening protocol, low dose, non-contrast CT chest [facility] in accordance with Lung-Rads 2021. Additional coronal and sagittal reconstructions. MIP reconstructions were reviewed. 2181 images were received by the [place] [facility] ([facility]) for interpretation. RADIATION [...] atelectasis. READING PHYSICIAN: Luz Maria Alan M.D. -[id number] 05/03/2024 12:31 EDT [facility] [phone] (For Medical Practitioner Use Only) Attention Patients / Veterans: If you have questions or concerns about these test results, please contact your ordering provider or primary care team. Primary Interpreting Staff: RADIOLOGY,OUTSIDE SERVICE, Staff Physician / RADIOLOGY,OUTSIDE SERVICE RICARDO MARQUEZ [facility] May 02, 2024 10:08 AM OBSTRUCTIVE SERIES : [facility] [id number] -[id number] M Ex Date: MAY 02, 2024@10:08 Req Phys: DARRYL COBURN Pat Loc: PB-CARLYN [facility] (Req'g Loc) Img Loc: PB-RADIOLOGY Service: Unknown [facility] [place] [address] (Case [id number] COMPLETE) OBSTRUCTIVE SERIES (RAD Detailed) CPT:24069 Reason for Study: nausea, constipation for 6 weeks Clinical History: nausea, constipation for 6 weeks Report Status: Verified Date Reported: MAY 02, 2024 Date Verified: MAY 02, 2024 Intake Man E-Sig:/ES/RONI MCKEON Report: Obstructive series Chest reveals [...] calcification Primary Interpreting Staff: RONI MCKEON, RADIOLOGIST (Intake Man) /RONI Hi [facility] Encounter Notes: All associated encounter notes This section contains the clinical notes associated to the Encounter. Date/Time Encounter Note(s) Provider Source Jun 28, 2024 03:55 PM NURSING PROGRESS N OTE: LOCAL TITLE: NURSING NOTE PB STANDARD TITLE: NURSING PROGRESS NOTE DATE OF NOTE: JUN 28, 2024@15:55 ENTRY DATE: JUN 28, 2024@15:55:43 AUTHOR: TIFFANY LUKE COSIGNER: URGENCY: STATUS: COMPLETED Veterans spouse stopped into clinic today with a note to PACT team requesting we write for following medication so [facility]. sees a certified nursing assistant Dr. Owen Lazo privately (not consulted through OR) Script presented with letter for Omeprazole 20mg Delayed release 1 tab oral daily. Disp#90 with 3 refills. Stop Pantoprozole. Will forward to PACT PCP for review. /sepideh/ TIFFANY WELLS, ROLAND TAMPA CB Signed: 06/28/2024 16:00 Receipt Acknowledged By: 07/02/2024 12:03 /sepideh/ TIFFANY BRANDON MD [facility] Jun 12, 2024 10:55 AM ADDENDUM: LOCAL TITLE: Addendum STANDARD TITLE: ADDENDUM DATE OF NOTE: JUN 12, 2024@10:55:38 ENTRY DATE: JUN 12, 2024@10:55:39 AUTHOR: DRE ALEX EXP COSIGNER: URGENCY: STATUS: COMPLETED Team please call the patient and let him know that his results did not reveal anything acutely concerning. Definitely just to make sure that he finished the antibiotics that I [facility]. It sometimes does take a little bit longer on the imaging to see that the infiltrate is resolving. There was nothing concerning in his abdomen. That is great news. CT chest abdomen pelvis impression: 1. Chronic findings as noted 2. Left basilar infiltrate/effusion 3. No acute intra-abdominal/intrapelvic process LDCT done 04/2024 just a reminder due again in 12 months. For follow-up which is already scheduled Tell the patient good luck and to get back on the transplant list keep us posted /sepideh/ DRE ALEX MD Signed: 06/12/2024 11:00 Receipt Acknowledged By: 06/14/2024 14:42 /es/ DAVID BROWN LPN --- Original Document --- 05/30/24 PRIMARY CARE CLINIC PROGRESS NOTE PB: DATE & TIME:May@10:11 CHIEF COMPLAINT: annual exam, review labs HISTORY OF PRESENT ILLNESS: Annual visit, lab review. Instability with ambulation leg weakness vomiting 6 times a month for 2 months decreased appitite [facility]. OR dermatology Dr. Mckeon, Cardiology [place], Pulmonology [place], Opthamology [place] Watchman device 03/19/2024, colonoscopy 09/2023 PAST MEDICAL HISTORY: 1) DM - Diabetes mellitus (SNOMED CT 95155804) 2) Hearing Loss, Sensorineural, Combined Types 3) Tinnitus, NOS 4) Leg Pain 5) Hyperlipidemia (SNOMED CT 80964710) 6) Chronic obstructive airway disease (SNOMED CT 96379494) 7) Pain in Joint, site unspecified (ICD-9-CM 719.40) 8) Gout (SNOMED CT 20596279) 9) Acute prostatitis (SNOMED CT 71946677) 10) Renal mass (SNOMED CT 559221749) 11) Pancreatitis (SNOMED CT 66534797) 12) Biliary calculus (SNOMED CT 639871327) 13) Primary malignant neoplasm of kidney (SNOMED CT 22721368) 14) Malignant tumor of urinary bladder (SNOMED CT 011065945) 15) H/O: TIA (SNOMED CT 223060115) 16) Dizziness 17) Essential hypertension (SNOMED CT 77811871) 18) Chronic pancreatitis 19) 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 heart failure 20) History of partial nephrectomy 21) History of appendectomy 22) History of cholecystectomy 23) Multiple acquired kidney cysts 24) Dependence on renal dialysis 25) Peripheral vascular disease 26) Elderly fall 27) CAD - Coronary Artery Disease (SCT 53691417) 28) H/O: Stroke (SCT 364109901) 29) ldct sc rng 30) elevated ferritin 31) Cardiac defibrillator in situ 32) Hemorrhagic cystitis 33) Aortic aneurysm screening normal 34) Urinary tract infectious disease 35) disabilty plates 36) Anemia 37) Exposure to potentially hazardous substance 38) Hypoglycemia 39) Mood disorder with depressive features due to general medical condition 40) s/p left adrenectomy 41) pleural thickening of the bronchi 42) watchman placed SOCIAL HISTORY: Patient is and lives with his . Tobacco: Quit smoking December 11, 2020 Alcohol: Other: no illicit drug use. FAMILY HISTORY: Mom 66 years of age of cancer of the breast and then 1 to let her lungs Dad 67 years of age hip prostate and liver patient. Allergies: Patient has answered NKA MEDIACTIONS: Active [...] MOUTH EVERY EVENING FOR HIGH CHOLESTEROL 6) AZITHROMYCIN 250MG TAB TAKE TWO TABLETS BY MOUTH ACTIVE EVERY DAY FOR 1 DAY, THEN TAKE ONE TABLET EVERY DAY FOR 4 DAYS FOR PNEUMONIA 7) BUPROPION HCL 300MG 24HR SA TAB TAKE ONE TABLET BY ACTIVE MOUTH ONCE A DAY FOR DEPRESSION SWALLOW WHOLE - DO NOT CRUSH OR CHEW. 8) CARVEDILOL 25MG TAB TAKE ONE-HALF TABLET BY MOUTH ACTIVE TWICE A DAY FOR HIGH BLOOD PRESSURE TAKE WITH FOOD. 9) CEFDINIR 300MG CAP TAKE ONE CAPSULE BY MOUTH ONCE A ACTIVE DAY FOR PNEUMONIA TAKE UNTIL GONE UNLESS OTHERWISE DIRECTED. 10) CHOLECALCIF 50MCG (D3-2,000UNIT) TAB TAKE ONE TABLET ACTIVE BY MOUTH ONCE A DAY FOR VITAMIN D SUPPLEMENTATION 11) COLCHICINE 0.6MG TAB TAKE ONE-HALF TABLET BY MOUTH ACTIVE TWO TIMES PER WEEK FOR GOUT (STOP MED AND CONTACT PROVIDER AT FIRST SIGN OF NAUSEA, VOMITING OR DIARRHEA) 12) CREON 12,000UNIT EC CAP TAKE 3 CAPSULES BY MOUTH ACTIVE THREE TIMES A DAY BEFORE MEALS FOR PANCREATIC INSUFFICIENCY TAKE WITH FOOD DIRECTED. 13) FERROUS SULFATE 325MG TAB TAKE ONE TABLET BY MOUTH ACTIVE TWICE A DAY FOR IRON DEFICIENCY ANEMIA 14) INSULIN,ASPART(EQV-NOVLG)100 UN/ML FLXPEN INJECT 12 ACTIVE UNITS UNDER THE SKIN THREE TIMES A DAY BEFORE MEALS FOR BLOOD SUGAR CONTROL. ADMINISTER 10 MINUTES BEFORE FOOD DIRECTED. REFRIGERATE UN-OPENED PENS. DISCARD CARTRIDGE 28 DAYS AFTER OPENING. 15) INSULIN,GLARGINE-YFGN 100UNIT/ML PEN 3ML INJECT 20 ACTIVE UNITS UNDER THE SKIN ONCE A DAY FOR BLOOD SUGAR CONTROL. ADMINISTER AT SAME TIME EACH DAY DIRECTED. DISCARD ANY OPEN CARTRIDGE AFTER 28 DAYS. 16) LIDOCAINE 2.5/PRILOCAINE 2.5% CREAM APPLY LIGHTLY TO ACTIVE AFFECTED AREA(S) DIRECTED NEEDED BEFORE NEEDLE STICK 17) MIDODRINE HCL 5MG TAB TAKE ONE TABLET BY MOUTH THREE ACTIVE TIMES A DAY FOR LOW BLOOD PRESSURE/DIZZINESS. 18) NEEDLE,PEN 31G,8MM USE 1 NEEDLE UNDER THE SKIN FOUR ACTIVE TIMES A DAY FOR INJECTION 19) OMEPRAZOLE 20MG EC CAP TAKE ONE CAPSULE BY MOUTH HOLD EVERY MORNING BEFORE A MEAL TO LOWER STOMACH ACID. TAKE 30 MINUTES PRIOR TO FOOD. 20) ONDANSETRON 4MG ORAL DISINTEGRATING TAB TAKE ONE ACTIVE TABLET UNDER THE TONGUE EVERY EIGHT(8) HOURS NEEDED FOR NAUSEA/VOMITING 21) OXYBUTYNIN CHLORIDE 5MG TAB TAKE ONE TABLET BY MOUTH ACTIVE THREE TIMES A DAY NEEDED FOR BLADDER 22) PANTOPRAZOLE NA 40MG EC TAB TAKE ONE TABLET BY MOUTH ACTIVE EVERY MORNING BEFORE A MEAL FOR GASTROESOPHAGEAL REFLUX DISEASE TAKE 30 MINUTES BEFORE MEAL(S) 23) POLYETHYLENE GLYCOL 3350 ORAL PWDR MIX AND DRINK 1 ACTIVE CAPFUL BY MOUTH ONCE A DAY NEEDED FOR CONSTIPATION (MEASURE WITH CAP AND MIX IN 8 OZ OF WATER) 24) RENAL MULTIVIT W/1MG OR LESS FA TAB TAKE 1 TABLET BY ACTIVE MOUTH ONCE A DAY FOR NUTRITION/DIETARY SUPPLEMENTATION 25) SEVELAMER CARBONATE 800MG TAB TAKE THREE TABLETS BY ACTIVE MOUTH THREE TIMES A DAY WITH MEAL(S) FOR HYPERPHOSPHATEMIA. TAKE WITH FOOD. 26) SODIUM BICARBONATE 650MG TAB TAKE ONE TABLET BY MOUTH ACTIVE FOUR TIMES A DAY FOR DIALYSIS 27) TAMSULOSIN HCL 0.4MG CAP TAKE TWO CAPSULES [...] Denies SI/HI PHYSICAL ASSESSMENT: VITAL SIGNS Pulse: 64 (05/30/2024 09:25) Blood Pressure: 125/74 (05/30/2024 09:25) Respiratory Rate: 18 (05/30/2024 09:25) Temperature: 97.3 F [36.3 C] (05/30/2024 09:25) Weight: 168.6 lb [76.48 kg] (05/30/2024 09:25) Height: 67.0 in [170.2 cm] (05/30/2024 09:25) Pain: 0 (05/30/2024 09:25) GENERAL: Appears in no acute distress. HEENT: Conjunctiva are clear without exudate or hemorrhage. Sclera nonicteric. EOM are intact. Pupils reactive. Ear canals without discharge, Tympanic membrane is without acute changes. Oropharynx is normal in appearanceand without swelling or exudate without exudate NECK: Supple and nontender without adenopathy. Thyroid gland nonpalpable without masses or enlargement CARDIAC: Regular rate and rhythm. No JVD RESPIRATORY: CTA bilaterally no rhonchi wheezing or rails. Nonlabored respirations GI: Abdomen soft, normal bowel sounds, no HSM, no guarding or rebound. MUSCULOSKELETAL: No joint effusions, no gross muscle spasms, nontender to palpation SKIN: [place], warm, dry and intact. Appropriate color for ethnicity. NEUROLOGICAL: The is alert and oriented without distress. DTR's 2/4, motor and sensory grossly intact. PSYCHOLOGICAL: Appropriate mood and affect. No suicidal or homicidal ideation. A/P: ASSESSMENT and PLAN 1) DM - Diabetes mellitus (SNOMED CT 74098070) 2) Hearing Loss, Sensorineural, Combined Types 3) Tinnitus, NOS 4) Leg Pain 5) Hyperlipidemia (SNOMED CT 71885036) 6) Chronic obstructive airway disease (SNOMED CT 92581627) 7) Pain in Joint, site unspecified (ICD-9-CM 719.40) 8) Gout (SNOMED CT 83810284) 9) Acute prostatitis (SNOMED CT 06740963) 10) Renal mass (SNOMED CT 174072709) 11) Pancreatitis (SNOMED CT 03114062) 12) Biliary calculus (SNOMED CT 036536608) 13) Primary malignant neoplasm of kidney (SNOMED CT 21755478) 14) Malignant tumor of urinary bladder (SNOMED CT 047278835) 15) H/O: TIA (SNOMED CT 162162195) 16) Dizziness 17) Essential hypertension (SNOMED CT 44182469) 18) Chronic pancreatitis 19) 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 heart failure 20) History of partial nephrectomy 21) History of appendectomy 22) History of cholecystectomy 23) Multiple acquired kidney cysts 24) Dependence on renal dialysis 25) Peripheral vascular disease 26) Elderly fall 27) CAD - Coronary Artery Disease (SCT 01091978) 28) H/O: Stroke (SCT 029827537) 29) ldct sc rng 30) elevated ferritin 31) Cardiac defibrillator in situ 32) Hemorrhagic cystitis 33) Aortic aneurysm screening normal 34) Urinary tract infectious disease 35) disabilty plates 36) Anemia 37) Exposure to potentially hazardous substance 38) Hypoglycemia 39) Mood disorder with depressive features due to general medical condition 40) s/p left adrenectomy 41) pleural thickening of the bronchi 42) watchman placed Instability with ambulation leg weakness vomiting 6 times a month for 2 months, cardiac workup was recently negative, patient does have a history of anemia. Order acute abdomen series today decreased appitite sees NON OR GI [facility]. OR dermatology Dr. Mckeon, Cardiology [place], Pulmonology [place], Opthamology [place] Watchman device 03/19/2024, colonoscopy 09/2023 -labs reviewed LDCT on 04/2024 RECOMMENDATION: [address] follow-up, if patient meets screening criteria. LUNG-RADS MODIFIER: S: Findings unrelated to lung cancer. Consolidation in the left lower lobe adjacent to pleural thickening/effusion with associated parenchymal bands and volume loss is also not significantly changed compared with October 2023, favored to reflect atelectasis. reviewed pulnmonary consult SCHEDULED 04/08/24 10:29 DRE ALEX,[employer] [facility] [id number] Consult Appt. on 04/18/24 @ 13:40 HSRM, CONSULT [id number] PID=FEB 23, 2024 PER CONSULT, PROVIDER [facility] PSP-'s Scheduled Provider [facility] [address] [place] [address] P- [phone] or [phone] GROUP [id number] Patient is aware he needs to do this LDCT in 1 year 04/2025. Educated patient that is very important he still has issues going on in the lung bronchus area and he needs pulmonary for further evaluation and treatment. Health Maintenance: Discussed preventative health to include diet and exercise including immunizations. Stable. Discussed medications with patient; med rec [...] lapses in notification of imaging completion within [facility]. -Follow-up with me every May for annual labs and annual exam Follow-up every November for 6-month labs -Follow-up with me as needed. All questions answered; agrees to plan of care. Follow up as listed above, annually, and as needed. Keep all appointments. Medications Reconciled. /sepideh/ DRE ALEX MD Signed: 06/03/2024 07:15 06/03/2024 ADDENDUM STATUS: COMPLETED 05/30/2024 acute abdominal serries Impression 1. COPD 2. Findings left lung base [...] the abdomen and pelvis and GI consult Team please call the patient and let him know about his abdomen acute abdominal series results he has same area of pleural thickening and possibly even pneumonia in the area of his lung (patient was just seen by urgent care and treated for pneumonia 05/02/2024 with azithromycin and cefdinir) I will [facility] him a [facility]. He definitely needs to keep following up with pulmonary call them share this result study with them and make another appointment to be seen for this Also has constipation and we need to put him on a bowel regimen. Like for him to clean himself out once with the GI prep for a colonoscopy then he is to start a stool softener daily and MiraLAX adjust up or down 1 capful daily until a soft formed bowel movement daily is obtained. Also I will place a CT scan of the abdomen pelvis and get him a GI consult. Since he is having all these GI symptoms. /sepideh/ DRE ALEX MD Signed: 06/03/2024 07:29 Receipt Acknowledged By: 06/04/2024 09:54 /sepideh/ TIFFANY WELLS RN [facility] 06/03/2024 ADDENDUM STATUS: COMPLETED Spoke with regarding test results. Orma reports he has gastroenterology appointment at [facility] with Dr. Marsha Ledesma on 06/26/24 and will share this information with them. Orma aware of new regimen for antibiotics and states will take them once received. Orma states he will make appointment with assessment manager at [facility]. CT abdomen and pelvis not ordered in system, will alert PCP. Orma states understanding. /sepideh/ TIFFANY WELLS, ROLAND TAMPA CB Signed: 06/03/2024 13:36 Receipt Acknowledged By: 06/04/2024 10:33 /sepideh/ DRE ALEX MD 06/04/2024 ADDENDUM STATUS: COMPLETED Verify that patient received hunting license papers information to be able to find/from vehicle secondary to his medical condition. Also put a copy of this in [facility]. Thank you /sepideh/ DRE ALEX MD Signed: 06/04/2024 10:34 06/04/2024 ADDENDUM STATUS: COMPLETED Continuation of progress note: dialysis left arm fistula in place. No signs of infection thrill palpable Needs to get back on kidney transplant list now that other medical conditions are stabilized. Depressed mood, loves to najera but cannot do it. He states patient really likes to go hunting. But he cannot do that any longer secondary to his condition. I told him I will give a letter to to submit with his hunting license. This will allow him to najera from a vehicle. his mood was improved immediately. Patient is no longer taking his cefdinir, azithromycin. Takes 16 units of glargine insulin orders for 20 so he does not run out. Not taking acetaminophen not taking albuterol is not taking clopidogrel 75 mg. /sepideh/ DRE ALEX MD Signed: 06/04/2024 10:41 06/14/2024 ADDENDUM STATUS: UNSIGNED You may not VIEW this UNSIGNED Addendum. DRE ALEX [facility] Jun 03, 2024 01:32 PM ADDENDUM: LOCAL TITLE: Addendum STANDARD TITLE: ADDENDUM DATE OF NOTE: JUN 03, 2024@13:32:23 ENTRY DATE: JUN 03, 2024@13:32:24 AUTHOR: TIFFANY LUKE EXP COSIGNER: URGENCY: STATUS: COMPLETED Spoke with regarding test results. Orma reports he has gastroenterology appointment at [facility] with Dr. Marsha Ledesma on 06/26/24 and will share this information with them. Orma aware of new regimen for antibiotics and states will take them once received. Orma states he will make appointment with assessment manager at [facility]. CT abdomen and pelvis not ordered in system, will alert PCP. Orma states understanding. /es/ TIFFANY WELLS, RN [facility] Signed: 06/03/2024 13:36 Receipt Acknowledged By: 06/04/2024 10:33 /es/ DRE ALEX MD --- Original Document --- 05/30/24 PRIMARY CARE CLINIC PROGRESS NOTE PB: DATE & TIME:May@10:11 CHIEF COMPLAINT: annual exam, review labs HISTORY OF PRESENT ILLNESS: Annual visit, lab review. Instability with ambulation leg weakness vomiting 6 times a month for 2 months decreased appitite sees NON OR GI [facility]. OR dermatology Dr. Mckeon, Cardiology [place], Pulmonology [place], Opthamology [place] Watchman device 03/19/2024, colonoscopy 09/2023 PAST MEDICAL HISTORY: 1) DM - Diabetes mellitus (SNOMED CT 33831088) 2) Hearing Loss, Sensorineural, Combined Types 3) Tinnitus, NOS 4) Leg Pain 5) Hyperlipidemia (SNOMED CT 83306784) 6) Chronic obstructive airway disease (SNOMED CT 20527625) 7) Pain in Joint, site unspecified (ICD-9-CM 719.40) 8) Gout (SNOMED CT 43521337) 9) Acute prostatitis (SNOMED CT 60419322) 10) Renal mass (SNOMED CT 998028669) 11) Pancreatitis (SNOMED CT 34608497) 12) Biliary calculus (SNOMED CT 289505236) 13) Primary malignant neoplasm of kidney (SNOMED CT 28156598) 14) Malignant tumor of urinary bladder (SNOMED CT 235840713) 15) H/O: TIA (SNOMED CT 519115228) 16) Dizziness 17) Essential hypertension (SNOMED CT 31901663) 18) Chronic pancreatitis 19) 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 heart failure 20) History of partial nephrectomy 21) History of appendectomy 22) History of cholecystectomy 23) Multiple acquired kidney cysts 24) Dependence on renal dialysis 25) Peripheral vascular disease 26) Elderly fall 27) CAD - Coronary Artery Disease (SCT 54899155) 28) H/O: Stroke (SCT 706742893) 29) ldct sc rng 30) elevated ferritin 31) Cardiac defibrillator in situ 32) Hemorrhagic cystitis 33) Aortic aneurysm screening normal 34) Urinary tract infectious disease 35) disabilty plates 36) Anemia 37) Exposure to potentially hazardous substance 38) Hypoglycemia 39) Mood disorder with depressive features due to general medical condition 40) s/p left adrenectomy 41) pleural thickening of the bronchi 42) watchman placed SOCIAL HISTORY: Patient is and lives with his . Tobacco: Quit smoking December 11, 2020 Alcohol: Other: no illicit drug use. FAMILY HISTORY: Mom 66 years of age of cancer of the breast and then 1 to let her lungs Dad 67 years of age hip prostate and liver patient. Allergies: Patient has answered NKA MEDIACTIONS: Active [...] MOUTH EVERY EVENING FOR HIGH CHOLESTEROL 6) AZITHROMYCIN 250MG TAB TAKE TWO TABLETS BY MOUTH ACTIVE EVERY DAY FOR 1 DAY, THEN TAKE ONE TABLET EVERY DAY FOR 4 DAYS FOR PNEUMONIA 7) BUPROPION HCL 300MG 24HR SA TAB TAKE ONE TABLET BY ACTIVE MOUTH ONCE A DAY FOR DEPRESSION SWALLOW WHOLE - DO NOT CRUSH OR CHEW. 8) CARVEDILOL 25MG TAB TAKE ONE-HALF TABLET BY MOUTH ACTIVE TWICE A DAY FOR HIGH BLOOD PRESSURE TAKE WITH FOOD. 9) CEFDINIR 300MG CAP TAKE ONE CAPSULE BY MOUTH ONCE A ACTIVE DAY FOR PNEUMONIA TAKE UNTIL GONE UNLESS OTHERWISE DIRECTED. 10) CHOLECALCIF 50MCG (D3-2,000UNIT) TAB TAKE ONE TABLET ACTIVE BY MOUTH ONCE A DAY FOR VITAMIN D SUPPLEMENTATION 11) COLCHICINE 0.6MG TAB TAKE ONE-HALF TABLET BY MOUTH ACTIVE TWO TIMES PER WEEK FOR GOUT (STOP MED AND CONTACT PROVIDER AT FIRST SIGN OF NAUSEA, VOMITING OR DIARRHEA) 12) CREON 12,000UNIT EC CAP TAKE 3 CAPSULES BY MOUTH ACTIVE THREE TIMES A DAY BEFORE MEALS FOR PANCREATIC INSUFFICIENCY TAKE WITH FOOD DIRECTED. 13) FERROUS SULFATE 325MG TAB TAKE ONE TABLET BY MOUTH ACTIVE TWICE A DAY FOR IRON DEFICIENCY ANEMIA 14) INSULIN,ASPART(EQV-NOVLG)100 UN/ML FLXPEN INJECT 12 ACTIVE UNITS UNDER THE SKIN THREE TIMES A DAY BEFORE MEALS FOR BLOOD SUGAR CONTROL. ADMINISTER 10 MINUTES BEFORE FOOD DIRECTED. REFRIGERATE UN-OPENED PENS. DISCARD CARTRIDGE 28 DAYS AFTER OPENING. 15) INSULIN,GLARGINE-YFGN 100UNIT/ML PEN 3ML INJECT 20 ACTIVE UNITS UNDER THE SKIN ONCE A DAY FOR BLOOD SUGAR CONTROL. ADMINISTER AT SAME TIME EACH DAY DIRECTED. DISCARD ANY OPEN CARTRIDGE AFTER 28 DAYS. 16) LIDOCAINE 2.5/PRILOCAINE 2.5% CREAM APPLY LIGHTLY TO ACTIVE AFFECTED AREA(S) DIRECTED NEEDED BEFORE NEEDLE STICK 17) MIDODRINE HCL 5MG TAB TAKE ONE TABLET BY MOUTH THREE ACTIVE TIMES A DAY FOR LOW BLOOD PRESSURE/DIZZINESS. 18) NEEDLE,PEN 31G,8MM USE 1 NEEDLE UNDER THE SKIN FOUR ACTIVE TIMES A DAY FOR INJECTION 19) OMEPRAZOLE 20MG EC CAP TAKE ONE CAPSULE BY MOUTH HOLD EVERY MORNING BEFORE A MEAL TO LOWER STOMACH ACID. TAKE 30 MINUTES PRIOR TO FOOD. 20) ONDANSETRON 4MG ORAL DISINTEGRATING TAB TAKE ONE ACTIVE TABLET UNDER THE TONGUE EVERY EIGHT(8) HOURS NEEDED FOR NAUSEA/VOMITING 21) OXYBUTYNIN CHLORIDE 5MG TAB TAKE ONE TABLET BY MOUTH ACTIVE THREE TIMES A DAY NEEDED FOR BLADDER 22) PANTOPRAZOLE NA 40MG EC TAB TAKE ONE TABLET BY MOUTH ACTIVE EVERY MORNING BEFORE A MEAL FOR GASTROESOPHAGEAL REFLUX DISEASE TAKE 30 MINUTES BEFORE MEAL(S) 23) POLYETHYLENE GLYCOL 3350 ORAL PWDR MIX AND DRINK 1 ACTIVE CAPFUL BY MOUTH ONCE A DAY NEEDED FOR CONSTIPATION (MEASURE WITH CAP AND MIX IN 8 OZ OF WATER) 24) RENAL MULTIVIT W/1MG OR LESS FA TAB TAKE 1 TABLET BY ACTIVE MOUTH ONCE A DAY FOR NUTRITION/DIETARY SUPPLEMENTATION 25) SEVELAMER CARBONATE 800MG TAB TAKE THREE TABLETS BY ACTIVE MOUTH THREE TIMES A DAY WITH MEAL(S) FOR HYPERPHOSPHATEMIA. TAKE WITH FOOD. 26) SODIUM BICARBONATE 650MG TAB TAKE ONE TABLET BY MOUTH ACTIVE FOUR TIMES A DAY FOR DIALYSIS 27) TAMSULOSIN HCL 0.4MG CAP TAKE TWO CAPSULES [...] Denies SI/HI PHYSICAL ASSESSMENT: VITAL SIGNS Pulse: 64 (05/30/2024 09:25) Blood Pressure: 125/74 (05/30/2024 09:25) Respiratory Rate: 18 (05/30/2024 09:25) Temperature: 97.3 F [36.3 C] (05/30/2024 09:25) Weight: 168.6 lb [76.48 kg] (05/30/2024 09:25) Height: 67.0 in [170.2 cm] (05/30/2024 09:25) Pain: 0 (05/30/2024 09:25) GENERAL: Appears in no acute distress. HEENT: Conjunctiva are clear without exudate or hemorrhage. Sclera nonicteric. EOM are intact. Pupils reactive. Ear canals without discharge, Tympanic membrane is without acute changes. Oropharynx is normal in appearanceand without swelling or exudate without exudate NECK: Supple and nontender without adenopathy. Thyroid gland nonpalpable without masses or enlargement CARDIAC: Regular rate and rhythm. No JVD RESPIRATORY: CTA bilaterally no rhonchi wheezing or rails. Nonlabored respirations GI: Abdomen soft, normal bowel sounds, no HSM, no guarding or rebound. MUSCULOSKELETAL: No joint effusions, no gross muscle spasms, nontender to palpation SKIN: [place], warm, dry and intact. Appropriate color for ethnicity. NEUROLOGICAL: The is alert and oriented without distress. DTR's 2/4, motor and sensory grossly intact. PSYCHOLOGICAL: Appropriate mood and affect. No suicidal or homicidal ideation. A/P: ASSESSMENT and PLAN 1) DM - Diabetes mellitus (SNOMED CT 50605824) 2) Hearing Loss, Sensorineural, Combined Types 3) Tinnitus, NOS 4) Leg Pain 5) Hyperlipidemia (SNOMED CT 19660186) 6) Chronic obstructive airway disease (SNOMED CT 84013178) 7) Pain in Joint, site unspecified (ICD-9-CM 719.40) 8) Gout (SNOMED CT 19639624) 9) Acute prostatitis (SNOMED CT 23606464) 10) Renal mass (SNOMED CT 767580609) 11) Pancreatitis (SNOMED CT 19036409) 12) Biliary calculus (SNOMED CT 715796066) 13) Primary malignant neoplasm of kidney (SNOMED CT 72740854) 14) Malignant tumor of urinary bladder (SNOMED CT 327084470) 15) H/O: TIA (SNOMED CT 727409001) 16) Dizziness 17) Essential hypertension (SNOMED CT 29795228) 18) Chronic pancreatitis 19) 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 heart failure 20) History of partial nephrectomy 21) History of appendectomy 22) History of cholecystectomy 23) Multiple acquired kidney cysts 24) Dependence on renal dialysis 25) Peripheral vascular disease 26) Elderly fall 27) CAD - Coronary Artery Disease (SCT 63695806) 28) H/O: Stroke (SCT 141249407) 29) ldct sc rng 30) elevated ferritin 31) Cardiac defibrillator in situ 32) Hemorrhagic cystitis 33) Aortic aneurysm screening normal 34) Urinary tract infectious disease 35) disabilty plates 36) Anemia 37) Exposure to potentially hazardous substance 38) Hypoglycemia 39) Mood disorder with depressive features due to general medical condition 40) s/p left adrenectomy 41) pleural thickening of the bronchi 42) watchman placed Instability with ambulation leg weakness vomiting 6 times a month for 2 months, cardiac workup was recently negative, patient does have a history of anemia. Order acute abdomen series today decreased appitite sees NON OR GI [facility]. OR dermatology Dr. Mckeon, Cardiology [place], Pulmonology [place], Opthamology [place] Watchman device 03/19/2024, colonoscopy 09/2023 -labs reviewed LDCT on 04/2024 RECOMMENDATION: [address] follow-up, if patient meets screening criteria. LUNG-RADS MODIFIER: S: Findings unrelated to lung cancer. Consolidation in the left lower lobe adjacent to pleural thickening/effusion with associated parenchymal bands and volume loss is also not significantly changed compared with October 2023, favored to reflect atelectasis. reviewed pulnmonary consult SCHEDULED 04/08/24 10:29 DRE ALEX,[employer] [facility]-PULMONARY [id number] Consult Appt. on 04/18/24 @ 13:40 HSRM, CONSULT [id number] PID=FEB 23, 2024 PER CONSULT, PROVIDER [facility] PSP-Orma's Scheduled Provider [facility] [address] [place] [address] P- [phone] or [phone] [phone] GROUP NPI-[id number] Patient is aware he needs to do this LDCT in 1 year 04/2025. Educated patient that is very important he still has issues going on in the lung bronchus area and he needs pulmonary for further evaluation and treatment. Health Maintenance: Discussed preventative health to include diet and exercise including immunizations. Stable. Discussed medications with patient; med rec [...] with results within 1 week by a OR PACT member; this is due to intermittent lapses in notification of imaging completion within CPRS. -Follow-up with me every May for annual labs and annual exam Follow-up every November for 6-month labs -Follow-up with me as needed. All questions answered; agrees to plan of care. Follow up as listed above, annually, and as needed. Keep all appointments. Medications Reconciled. /sepideh/ DRE ALEX MD Signed: 06/03/2024 07:15 06/03/2024 ADDENDUM STATUS: COMPLETED 05/30/2024 acute abdominal serries Impression 1. COPD 2. Findings left lung base [...] the abdomen and pelvis and GI consult Team please call the patient and let him know about his abdomen acute abdominal series results he has same area of pleural thickening and possibly even pneumonia in the area of his lung (patient was just seen by urgent care and treated for pneumonia 05/02/2024 with azithromycin and cefdinir) [facility]. He definitely needs to keep following up with pulmonary call them share this result study with them and make another appointment to be seen for this Also has constipation and we need to put him on a bowel regimen. Like for him to clean himself out once with the GI prep for a colonoscopy then he is to start a stool softener daily and MiraLAX adjust up or down 1 capful daily until a soft formed bowel movement daily is obtained. Also I will place a CT scan of the abdomen pelvis and get him a GI consult. Since he is having all these GI symptoms. /sepideh/ DRE ALEX MD Signed: 06/03/2024 07:29 Receipt Acknowledged By: 06/04/2024 09:54 /sepideh/ TIFFANY WELLS, ROLAND [facility] TIFFANY LUKE T[facility]PA JIMMY ROBLERO Jun 03, 2024 07:17 AM ADDENDUM: LOCAL TITLE: Addendum STANDARD TITLE: ADDENDUM DATE OF NOTE: JUN 03, 2024@07:17:38 ENTRY DATE: JUN 03, 2024@07:17:39 AUTHOR: DRE ALEX EXP COSIGNER: URGENCY: STATUS: COMPLETED 05/30/2024 acute abdominal serries Impression 1. COPD 2. Findings left lung base [...] the abdomen and pelvis and GI consult Team please call the patient and let him know about his abdomen acute abdominal series results he has same area of pleural thickening and possibly even pneumonia in the area of his lung (patient was just seen by urgent care and treated for pneumonia 05/02/2024 with azithromycin and cefdinir) I will send him a stronger course of antibiotics through the [place] to be mailed [facility]. He definitely needs to keep following up with pulmonary call them share this result study with them and make another appointment to be seen for this Also has constipation and we need to put him on a bowel regimen. Like for him to clean himself out once with the GI prep for a colonoscopy then he is to start a stool softener daily and MiraLAX adjust up or down 1 capful daily until a soft formed bowel movement daily is obtained. Also I will place a CT scan of the abdomen pelvis and get him a GI consult. Since he is having all these GI symptoms. /sepideh/ DRE ALEX MD Signed: 06/03/2024 07:29 Receipt Acknowledged By: 06/04/2024 09:54 /sepideh/ TIFFANY WELLS, [facility] --- Original Document --- 05/30/24 PRIMARY CARE CLINIC PROGRESS NOTE PB: DATE & TIME:May@10:11 CHIEF COMPLAINT: annual exam, review labs HISTORY OF PRESENT ILLNESS: Annual visit, lab review. Instability with ambulation leg weakness vomiting 6 times a month for 2 months decreased appitite sees NON OR GI [facility]. OR dermatology Dr. Mckeon, Cardiology [place], Pulmonology [place], Opthamology [place] Watchman device 03/19/2024, colonoscopy 09/2023 PAST MEDICAL HISTORY: 1) DM - Diabetes mellitus (SNOMED CT 42174321) 2) Hearing Loss, Sensorineural, Combined Types 3) Tinnitus, NOS 4) Leg Pain 5) Hyperlipidemia (SNOMED CT 47248057) 6) Chronic obstructive airway disease (SNOMED CT 98909677) 7) Pain in Joint, site unspecified (ICD-9-CM 719.40) 8) Gout (SNOMED CT 87366383) 9) Acute prostatitis (SNOMED CT 37926948) 10) Renal mass (SNOMED CT 443790520) 11) Pancreatitis (SNOMED CT 53052868) 12) Biliary calculus (SNOMED CT 099249062) 13) Primary malignant neoplasm of kidney (SNOMED CT 96667709) 14) Malignant tumor of urinary bladder (SNOMED CT 274171606) 15) H/O: TIA (SNOMED CT 258289592) 16) Dizziness 17) Essential hypertension (SNOMED CT 42157523) 18) Chronic pancreatitis 19) 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 heart failure 20) History of partial nephrectomy 21) History of appendectomy 22) History of cholecystectomy 23) Multiple acquired kidney cysts 24) Dependence on renal dialysis 25) Peripheral vascular disease 26) Elderly fall 27) CAD - Coronary Artery Disease (SCT 95125268) 28) H/O: Stroke (SCT 346771040) 29) ldct sc rng 30) elevated ferritin 31) Cardiac defibrillator in situ 32) Hemorrhagic cystitis 33) Aortic aneurysm screening normal 34) Urinary tract infectious disease 35) disabilty plates 36) Anemia 37) Exposure to potentially hazardous substance 38) Hypoglycemia 39) Mood disorder with depressive features due to general medical condition 40) s/p left adrenectomy 41) pleural thickening of the bronchi 42) watchman placed SOCIAL HISTORY: Patient is and lives with his . Tobacco: Quit smoking December 11, 2020 Alcohol: Other: no illicit drug use. FAMILY HISTORY: Mom 66 years of age of cancer of the breast and then 1 to let her lungs Dad 67 years of age hip prostate and liver patient. Allergies: Patient has answered NKA MEDIACTIONS: Active [...] MOUTH EVERY EVENING FOR HIGH CHOLESTEROL 6) AZITHROMYCIN 250MG TAB TAKE TWO TABLETS BY MOUTH ACTIVE EVERY DAY FOR 1 DAY, THEN TAKE ONE TABLET EVERY DAY FOR 4 DAYS FOR PNEUMONIA 7) BUPROPION HCL 300MG 24HR SA TAB TAKE ONE TABLET BY ACTIVE MOUTH ONCE A DAY FOR DEPRESSION SWALLOW WHOLE - DO NOT CRUSH OR CHEW. 8) CARVEDILOL 25MG TAB TAKE ONE-HALF TABLET BY MOUTH ACTIVE TWICE A DAY FOR HIGH BLOOD PRESSURE TAKE WITH FOOD. 9) CEFDINIR 300MG CAP TAKE ONE CAPSULE BY MOUTH ONCE A ACTIVE DAY FOR PNEUMONIA TAKE UNTIL GONE UNLESS OTHERWISE DIRECTED. 10) CHOLECALCIF 50MCG (D3-2,000UNIT) TAB TAKE ONE TABLET ACTIVE BY MOUTH ONCE A DAY FOR VITAMIN D SUPPLEMENTATION 11) COLCHICINE 0.6MG TAB TAKE ONE-HALF TABLET BY MOUTH ACTIVE TWO TIMES PER WEEK FOR GOUT (STOP MED AND CONTACT PROVIDER AT FIRST SIGN OF NAUSEA, VOMITING OR DIARRHEA) 12) CREON 12,000UNIT EC CAP TAKE 3 CAPSULES BY MOUTH ACTIVE THREE TIMES A DAY BEFORE MEALS FOR PANCREATIC INSUFFICIENCY TAKE WITH FOOD DIRECTED. 13) FERROUS SULFATE 325MG TAB TAKE ONE TABLET BY MOUTH ACTIVE TWICE A DAY FOR IRON DEFICIENCY ANEMIA 14) INSULIN,ASPART(EQV-NOVLG)100 UN/ML FLXPEN INJECT 12 ACTIVE UNITS UNDER THE SKIN THREE TIMES A DAY BEFORE MEALS FOR BLOOD SUGAR CONTROL. ADMINISTER 10 MINUTES BEFORE FOOD DIRECTED. REFRIGERATE UN-OPENED PENS. DISCARD CARTRIDGE 28 DAYS AFTER OPENING. 15) INSULIN,GLARGINE-YFGN 100UNIT/ML PEN 3ML INJECT 20 ACTIVE UNITS UNDER THE SKIN ONCE A DAY FOR BLOOD SUGAR CONTROL. ADMINISTER AT SAME TIME EACH DAY DIRECTED. DISCARD ANY OPEN CARTRIDGE AFTER 28 DAYS. 16) LIDOCAINE 2.5/PRILOCAINE 2.5% CREAM APPLY LIGHTLY TO ACTIVE AFFECTED AREA(S) DIRECTED NEEDED BEFORE NEEDLE STICK 17) MIDODRINE HCL 5MG TAB TAKE ONE TABLET BY MOUTH THREE ACTIVE TIMES A DAY FOR LOW BLOOD PRESSURE/DIZZINESS. 18) NEEDLE,PEN 31G,8MM USE 1 NEEDLE UNDER THE SKIN FOUR ACTIVE TIMES A DAY FOR INJECTION 19) OMEPRAZOLE 20MG EC CAP TAKE ONE CAPSULE BY MOUTH HOLD EVERY MORNING BEFORE A MEAL TO LOWER STOMACH ACID. TAKE 30 MINUTES PRIOR TO FOOD. 20) ONDANSETRON 4MG ORAL DISINTEGRATING TAB TAKE ONE ACTIVE TABLET UNDER THE TONGUE EVERY EIGHT(8) HOURS NEEDED FOR NAUSEA/VOMITING 21) OXYBUTYNIN CHLORIDE 5MG TAB TAKE ONE TABLET BY MOUTH ACTIVE THREE TIMES A DAY NEEDED FOR BLADDER 22) PANTOPRAZOLE NA 40MG EC TAB TAKE ONE TABLET BY MOUTH ACTIVE EVERY MORNING BEFORE A MEAL FOR GASTROESOPHAGEAL REFLUX DISEASE TAKE 30 MINUTES BEFORE MEAL(S) 23) POLYETHYLENE GLYCOL 3350 ORAL PWDR MIX AND DRINK 1 ACTIVE CAPFUL BY MOUTH ONCE A DAY NEEDED FOR CONSTIPATION (MEASURE WITH CAP AND MIX IN 8 OZ OF WATER) 24) RENAL MULTIVIT W/1MG OR LESS FA TAB TAKE 1 TABLET BY ACTIVE MOUTH ONCE A DAY FOR NUTRITION/DIETARY SUPPLEMENTATION 25) SEVELAMER CARBONATE 800MG TAB TAKE THREE TABLETS BY ACTIVE MOUTH THREE TIMES A DAY WITH MEAL(S) FOR HYPERPHOSPHATEMIA. TAKE WITH FOOD. 26) SODIUM BICARBONATE 650MG TAB TAKE ONE TABLET BY MOUTH ACTIVE FOUR TIMES A DAY FOR DIALYSIS 27) TAMSULOSIN HCL 0.4MG CAP TAKE TWO CAPSULES [...] Denies SI/HI PHYSICAL ASSESSMENT: VITAL SIGNS Pulse: 64 (05/30/2024 09:25) Blood Pressure: 125/74 (05/30/2024 09:25) Respiratory Rate: 18 (05/30/2024 09:25) Temperature: 97.3 F [36.3 C] (05/30/2024 09:25) Weight: 168.6 lb [76.48 kg] (05/30/2024 09:25) Height: 67.0 in [170.2 cm] (05/30/2024 09:25) Pain: 0 (05/30/2024 09:25) GENERAL: Appears in no acute distress. HEENT: Conjunctiva are clear without exudate or hemorrhage. Sclera nonicteric. EOM are intact. Pupils reactive. Ear canals without discharge, Tympanic membrane is without acute changes. Oropharynx is normal in appearanceand without swelling or exudate without exudate NECK: Supple and nontender without adenopathy. Thyroid gland nonpalpable without masses or enlargement CARDIAC: Regular rate and rhythm. No JVD RESPIRATORY: CTA bilaterally no rhonchi wheezing or rails. Nonlabored respirations GI: Abdomen soft, normal bowel sounds, no HSM, no guarding or rebound. MUSCULOSKELETAL: No joint effusions, no gross muscle spasms, nontender to palpation SKIN: [place], warm, dry and intact. Appropriate color for ethnicity. NEUROLOGICAL: The Orma is alert and oriented without distress. DTR's 2/4, motor and sensory grossly intact. PSYCHOLOGICAL: Appropriate mood and affect. No suicidal or homicidal ideation. A/P: ASSESSMENT and PLAN 1) DM - Diabetes mellitus (SNOMED CT 98984246) 2) Hearing Loss, Sensorineural, Combined Types 3) Tinnitus, NOS 4) Leg Pain 5) Hyperlipidemia (SNOMED CT 12811531) 6) Chronic obstructive airway disease (SNOMED CT 70110619) 7) Pain in Joint, site unspecified (ICD-9-CM 719.40) 8) Gout (SNOMED CT 33939060) 9) Acute prostatitis (SNOMED CT 22224378) 10) Renal mass (SNOMED CT 605470002) 11) Pancreatitis (SNOMED CT 20477192) 12) Biliary calculus (SNOMED CT 188312042) 13) Primary malignant neoplasm of kidney (SNOMED CT 24109841) 14) Malignant tumor of urinary bladder (SNOMED CT 144175837) 15) H/O: TIA (SNOMED CT 049320258) 16) Dizziness 17) Essential hypertension (SNOMED CT 01673128) 18) Chronic pancreatitis 19) 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 heart failure 20) History of partial nephrectomy 21) History of appendectomy 22) History of cholecystectomy 23) Multiple acquired kidney cysts 24) Dependence on renal dialysis 25) Peripheral vascular disease 26) Elderly fall 27) CAD - Coronary Artery Disease (SCT 65852195) 28) H/O: Stroke (SCT 903665243) 29) ldct sc rng 30) elevated ferritin 31) Cardiac defibrillator in situ 32) Hemorrhagic cystitis 33) Aortic aneurysm screening normal 34) Urinary tract infectious disease 35) disabilty plates 36) Anemia 37) Exposure to potentially hazardous substance 38) Hypoglycemia 39) Mood disorder with depressive features due to general medical condition 40) s/p left adrenectomy 41) pleural thickening of the bronchi 42) watchman placed Instability with ambulation leg weakness vomiting 6 times a month for 2 months, cardiac workup was recently negative, patient does have a history of anemia. Order acute abdomen series today [facility] OR dermatology Dr. Mckeon, Cardiology [place], Pulmonology [place], Opthamology [place] Watchman device 03/19/2024, colonoscopy 09/2023 -labs reviewed LDCT on 04/2024 RECOMMENDATION: [address] follow-up, if patient meets screening criteria. LUNG-RADS MODIFIER: S: Findings unrelated to lung cancer. Consolidation in the left lower lobe adjacent to pleural thickening/effusion with associated parenchymal bands and volume loss is also not significantly changed compared with October 2023, favored to reflect atelectasis. reviewed pulnmonary consult SCHEDULED 04/08/24 10:29 DRE ALEX,[employer] [facility]-PULMONARY [id number] Consult Appt. on 04/18/24 @ 13:40 HSRM, CONSULT [id number] PID=FEB 23, 2024 PER CONSULT, PROVIDER [facility]SP-'s Scheduled Provider [facility] [address] [place] [address] or [phone] [phone] GROUP NPI-[id number] Patient is aware he needs to do this LDCT in 1 year 04/2025. Educated patient that is very important he still has issues going on in the lung bronchus area and he needs pulmonary for further evaluation and treatment. Health Maintenance: Discussed preventative health to include diet and exercise including immunizations. Stable. Discussed medications with patient; med rec [...] completion within CPRS. -Follow-up with me every May for annual labs and annual exam Follow-up every November for 6-month labs -Follow-up with me as needed. All questions answered; agrees to plan of care. Follow up as listed above, annually, and as needed. Keep all appointments. Medications Reconciled. /es/ DRE ALEX MD Signed: 06/03/2024 07:15 06/03/2024 ADDENDUM STATUS: COMPLETED Spoke with regarding test results. Orma reports he has gastroenterology appointment at [facility] with Dr. Marsha Ledesma on 06/26/24 and will share this information with them. aware of new regimen for antibiotics and states will take them once received. Orma states he will make appointment with assessment manager at [facility]. CT abdomen and pelvis not ordered in system, will alert PCP. states understanding. /es/ TIFFANY WELLS, RN [facility] Signed: 06/03/2024 13:36 Receipt Acknowledged By: * AWAITING SIGNATURE * DRE ALEX JANE R [facility] May 30, 2024 09:10 AM PRIMARY CARE PROGR ESS NOTE: LOCAL TITLE: PRIMARY CARE CLINIC PROGRESS NOTE PB STANDARD TITLE: PRIMARY CARE PROGRESS NOTE DATE OF NOTE: MAY 30, 2024@09:10 ENTRY DATE: JUN 01, 2024@19:10:29 AUTHOR: DRE ALEX EXP COSIGNER: URGENCY: STATUS: COMPLETED PRIMARY CARE CLINIC PROGRESS NOTE PB Has ADDENDA DATE & TIME:May@10:11 CHIEF COMPLAINT: annual exam, review labs HISTORY OF PRESENT ILLNESS: Annual visit, lab review. Instability with ambulation leg weakness vomiting 6 times a month for 2 months decreased appitite [facility] dermatology Dr. Mckeon, Cardiology [place], Pulmonology [place], Opthamology [place] Watchman device 03/19/2024, colonoscopy 09/2023 PAST MEDICAL HISTORY: 1) DM - Diabetes mellitus (SNOMED CT 26757057) 2) Hearing Loss, Sensorineural, Combined Types 3) Tinnitus, NOS 4) Leg Pain 5) Hyperlipidemia (SNOMED CT 54117576) 6) Chronic obstructive airway disease (SNOMED CT 37664568) 7) Pain in Joint, site unspecified (ICD-9-CM 719.40) 8) Gout (SNOMED CT 43603834) 9) Acute prostatitis (SNOMED CT 34789943) 10) Renal mass (SNOMED CT 268357375) 11) Pancreatitis (SNOMED CT 58423875) 12) Biliary calculus (SNOMED CT 962683702) 13) Primary malignant neoplasm of kidney (SNOMED CT 27351807) 14) Malignant tumor of urinary bladder (SNOMED CT 041011900) 15) H/O: TIA (SNOMED CT 727717291) 16) Dizziness 17) Essential hypertension (SNOMED CT 44690399) 18) Chronic pancreatitis 19) 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 heart failure 20) History of partial nephrectomy 21) History of appendectomy 22) History of cholecystectomy 23) Multiple acquired kidney cysts 24) Dependence on renal dialysis 25) Peripheral vascular disease 26) Elderly fall 27) CAD - Coronary Artery Disease ([facility] 58727567) 28) H/O: Stroke ([facility] 933913915) 29) ldct sc rng 30) elevated ferritin 31) Cardiac defibrillator in situ 32) Hemorrhagic cystitis 33) Aortic aneurysm screening normal 34) Urinary tract infectious disease 35) disabilty plates 36) Anemia 37) Exposure to potentially hazardous substance 38) Hypoglycemia 39) Mood disorder with depressive features due to general medical condition 40) s/p left adrenectomy 41) pleural thickening of the bronchi 42) watchman placed SOCIAL HISTORY: Patient is and lives with his . Tobacco: Quit smoking December 11, 2020 Alcohol: Other: no illicit drug use. FAMILY HISTORY: Mom 66 years of age of cancer of the breast and then 1 to let her lungs Dad 67 years of age hip prostate and liver patient. Allergies: Patient has answered NKA MEDIACTIONS: Active [...] MOUTH EVERY EVENING FOR HIGH CHOLESTEROL 6) AZITHROMYCIN 250MG TAB TAKE TWO TABLETS BY MOUTH ACTIVE EVERY DAY FOR 1 DAY, THEN TAKE ONE TABLET EVERY DAY FOR 4 DAYS FOR PNEUMONIA 7) BUPROPION HCL 300MG 24HR SA TAB TAKE ONE TABLET BY ACTIVE MOUTH ONCE A DAY FOR DEPRESSION SWALLOW WHOLE - DO NOT CRUSH OR CHEW. 8) CARVEDILOL 25MG TAB TAKE ONE-HALF TABLET BY MOUTH ACTIVE TWICE A DAY FOR HIGH BLOOD PRESSURE TAKE WITH FOOD. 9) CEFDINIR 300MG CAP TAKE ONE CAPSULE BY MOUTH ONCE A ACTIVE DAY FOR PNEUMONIA TAKE UNTIL GONE UNLESS OTHERWISE DIRECTED. 10) CHOLECALCIF 50MCG (D3-2,000UNIT) TAB TAKE ONE TABLET ACTIVE BY MOUTH ONCE A DAY FOR VITAMIN D SUPPLEMENTATION 11) COLCHICINE 0.6MG TAB TAKE ONE-HALF TABLET BY MOUTH ACTIVE TWO TIMES PER WEEK FOR GOUT (STOP MED AND CONTACT PROVIDER AT FIRST SIGN OF NAUSEA, VOMITING OR DIARRHEA) 12) CREON 12,000UNIT EC CAP TAKE 3 CAPSULES BY MOUTH ACTIVE THREE TIMES A DAY BEFORE MEALS FOR PANCREATIC INSUFFICIENCY TAKE WITH FOOD DIRECTED. 13) FERROUS SULFATE 325MG TAB TAKE ONE TABLET BY MOUTH ACTIVE TWICE A DAY FOR IRON DEFICIENCY ANEMIA 14) INSULIN,ASPART(EQV-NOVLG)100 UN/ML FLXPEN INJECT 12 ACTIVE UNITS UNDER THE SKIN THREE TIMES A DAY BEFORE MEALS FOR BLOOD SUGAR CONTROL. ADMINISTER 10 MINUTES BEFORE FOOD DIRECTED. REFRIGERATE UN-OPENED PENS. DISCARD CARTRIDGE 28 DAYS AFTER OPENING. 15) INSULIN,GLARGINE-YFGN 100UNIT/ML PEN 3ML INJECT 20 ACTIVE UNITS UNDER THE SKIN ONCE A DAY FOR BLOOD SUGAR CONTROL. ADMINISTER AT SAME TIME EACH DAY DIRECTED. DISCARD ANY OPEN CARTRIDGE AFTER 28 DAYS. 16) LIDOCAINE 2.5/PRILOCAINE 2.5% CREAM APPLY LIGHTLY TO ACTIVE AFFECTED AREA(S) DIRECTED NEEDED BEFORE NEEDLE STICK 17) MIDODRINE HCL 5MG TAB TAKE ONE TABLET BY MOUTH THREE ACTIVE TIMES A DAY FOR LOW BLOOD PRESSURE/DIZZINESS. 18) NEEDLE,PEN 31G,8MM USE 1 NEEDLE UNDER THE SKIN FOUR ACTIVE TIMES A DAY FOR INJECTION 19) OMEPRAZOLE 20MG EC CAP TAKE ONE CAPSULE BY MOUTH HOLD EVERY MORNING BEFORE A MEAL TO LOWER STOMACH ACID. TAKE 30 MINUTES PRIOR TO FOOD. 20) ONDANSETRON 4MG ORAL DISINTEGRATING TAB TAKE ONE ACTIVE TABLET UNDER THE TONGUE EVERY EIGHT(8) HOURS NEEDED FOR NAUSEA/VOMITING 21) OXYBUTYNIN CHLORIDE 5MG TAB TAKE ONE TABLET BY MOUTH ACTIVE THREE TIMES A DAY NEEDED FOR BLADDER 22) PANTOPRAZOLE NA 40MG EC TAB TAKE ONE TABLET BY MOUTH ACTIVE EVERY MORNING BEFORE A MEAL FOR GASTROESOPHAGEAL REFLUX DISEASE TAKE 30 MINUTES BEFORE MEAL(S) 23) POLYETHYLENE GLYCOL 3350 ORAL PWDR MIX AND DRINK 1 ACTIVE CAPFUL BY MOUTH ONCE A DAY NEEDED FOR CONSTIPATION (MEASURE WITH CAP AND MIX IN 8 OZ OF WATER) 24) RENAL MULTIVIT W/1MG OR LESS FA TAB TAKE 1 TABLET BY ACTIVE MOUTH ONCE A DAY FOR NUTRITION/DIETARY SUPPLEMENTATION 25) SEVELAMER CARBONATE 800MG TAB TAKE THREE TABLETS BY ACTIVE MOUTH THREE TIMES A DAY WITH MEAL(S) FOR HYPERPHOSPHATEMIA. TAKE WITH FOOD. 26) SODIUM BICARBONATE 650MG TAB TAKE ONE TABLET BY MOUTH ACTIVE FOUR TIMES A DAY FOR DIALYSIS 27) TAMSULOSIN HCL 0.4MG CAP TAKE TWO CAPSULES [...] Denies SI/HI PHYSICAL ASSESSMENT: VITAL SIGNS Pulse: 64 (05/30/2024 09:25) Blood Pressure: 125/74 (05/30/2024 09:25) Respiratory Rate: 18 (05/30/2024 09:25) Temperature: 97.3 F [36.3 C] (05/30/2024 09:25) Weight: 168.6 lb [76.48 kg] (05/30/2024 09:25) Height: 67.0 in [170.2 cm] (05/30/2024 09:25) Pain: 0 (05/30/2024 09:25) GENERAL: Appears in no acute distress. HEENT: Conjunctiva are clear without exudate or hemorrhage. Sclera nonicteric. EOM are intact. Pupils reactive. Ear canals without discharge, Tympanic membrane is without acute changes. Oropharynx is normal in appearanceand without swelling or exudate without exudate NECK: Supple and nontender without adenopathy. Thyroid gland nonpalpable without masses or enlargement CARDIAC: Regular rate and rhythm. No JVD RESPIRATORY: CTA bilaterally no rhonchi wheezing or rails. Nonlabored respirations GI: Abdomen soft, normal bowel sounds, no HSM, no guarding or rebound. MUSCULOSKELETAL: No joint effusions, no gross muscle spasms, nontender to palpation SKIN: [place], warm, dry and intact. Appropriate color for ethnicity. NEUROLOGICAL: The is alert and oriented without distress. DTR's 2/4, motor and sensory grossly intact. PSYCHOLOGICAL: Appropriate mood and affect. No suicidal or homicidal ideation. A/P: ASSESSMENT and PLAN 1) DM - Diabetes mellitus (SNOMED CT 75342537) 2) Hearing Loss, Sensorineural, Combined Types 3) Tinnitus, NOS 4) Leg Pain 5) Hyperlipidemia (SNOMED CT 63498593) 6) Chronic obstructive airway disease (SNOMED CT 61511823) 7) Pain in Joint, site unspecified (ICD-9-CM 719.40) 8) Gout (SNOMED CT 97267347) 9) Acute prostatitis (SNOMED CT 26785717) 10) Renal mass (SNOMED CT 681184557) 11) Pancreatitis (SNOMED CT 59589450) 12) Biliary calculus (SNOMED CT 037838806) 13) Primary malignant neoplasm of kidney (SNOMED CT 04695169) 14) Malignant tumor of urinary bladder (SNOMED CT 886059532) 15) H/O: TIA (SNOMED CT 490432254) 16) Dizziness 17) Essential hypertension (SNOMED CT 37275447) 18) Chronic pancreatitis 19) 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 heart failure 20) History of partial nephrectomy 21) History of appendectomy 22) History of cholecystectomy 23) Multiple acquired kidney cysts 24) Dependence on renal dialysis 25) Peripheral vascular disease 26) Elderly fall 27) CAD - Coronary Artery Disease (SCT 30831687) 28) H/O: Stroke (SCT 787678649) 29) ldct sc rng 30) elevated ferritin 31) Cardiac defibrillator in situ 32) Hemorrhagic cystitis 33) Aortic aneurysm screening normal 34) Urinary tract infectious disease 35) disabilty plates 36) Anemia 37) Exposure to potentially hazardous substance 38) Hypoglycemia 39) Mood disorder with depressive features due to general medical condition 40) s/p left adrenectomy 41) pleural thickening of the bronchi 42) watchman placed Instability with ambulation leg weakness vomiting 6 times a month for 2 months, cardiac workup was recently negative, patient does have a history of anemia. Order acute abdomen series today decreased appitite [facility]. OR dermatology Dr. Mckeon, Cardiology [place], Pulmonology [place], Opthamology [place] Watchman device 03/19/2024, colonoscopy 09/2023 -labs reviewed LDCT on 04/2024 RECOMMENDATION: [address] follow-up, if patient meets screening criteria. LUNG-RADS MODIFIER: S: Findings unrelated to lung cancer. Consolidation in the left lower lobe adjacent to pleural thickening/effusion with associated parenchymal bands and volume loss is also not significantly changed compared with October 2023, favored to reflect atelectasis. reviewed pulnmonary consult SCHEDULED 04/08/24 10:29 DRE ALEX,[employer] CARE-PULMONARY [id number] Consult Appt. on 04/18/24 @ 13:40 HSRM, CONSULT [id number] PID=[id number], 2024 PER CONSULT, PROVIDER [facility]-'s Scheduled Provider [facility] [address] [place] [address] P- [phone] or [phone] [phone] GROUP [id number] Patient is aware he needs to do this LDCT in 1 year 04/2025. Educated patient that is very important he still has issues going on in the lung bronchus area and he needs pulmonary for further evaluation and treatment. Health Maintenance: Discussed preventative health to include diet and exercise including immunizations. Stable. Discussed medications with patient; med rec [...] completion within CPR[facility]. -Follow-up with me every May for annual labs and annual exam Follow-up every November for 6-month labs -Follow-up with me as needed. All questions answered; agrees to plan of care. Follow up as listed above, annually, and as needed. Keep all appointments. Medications Reconciled. /es/ DRE ALEX MD Signed: 06/03/2024 07:15 06/03/2024 ADDENDUM STATUS: COMPLETED 05/30/2024 acute abdominal serries Impression 1. COPD 2. Findings left lung base [...] the abdomen and pelvis and GI consult Team please call the patient and let him know about his abdomen acute abdominal series results he has same area of pleural thickening and possibly even pneumonia in the area of his lung (patient was just seen by urgent care and treated for pneumonia 05/02/2024 with azithromycin and cefdinir) I will send him a stronger course of antibiotics through the OR to be mailed SVETLANA. He definitely needs to keep following up with pulmonary call them share this result study with them and make another appointment to be seen for this Also has constipation and we need to put him on a bowel regimen. Like for him to clean himself out once with the GI prep for a colonoscopy then he is to start a stool softener daily and MiraLAX adjust up or down 1 capful daily until a soft formed bowel movement daily is obtained. Also I will place a CT scan of the abdomen pelvis and get him a GI consult. Since he is having all these GI symptoms. /es/ DRE ALEX MD Signed: 06/03/2024 07:29 Receipt Acknowledged By: 06/04/2024 09:54 /es/ TIFFANY WELLS, ROLAND [facility] 06/03/2024 ADDENDUM STATUS: COMPLETED Spoke with regarding test results. Orma reports he has gastroenterology appointment at [facility] with Dr. Marsha Ledesma on 06/26/24 and will share this information with them. aware of new regimen for antibiotics and states will take them once received. Orma states he will make appointment with assessment manager at [facility]. CT abdomen and pelvis not ordered in system, will alert PCP. states understanding. /es/ TIFFANY WELLS, ROLAND [facility] Signed: 06/03/2024 13:36 Receipt Acknowledged By: 06/04/2024 10:33 /sepideh/ DRE ALEX MD 06/04/2024 ADDENDUM STATUS: COMPLETED Verify that patient received hunting license papers information to be able to find/from vehicle secondary to his medical condition. Also put a copy of this in [facility]. Thank you /addie LAEX MD Signed: 06/04/2024 10:34 06/04/2024 ADDENDUM STATUS: COMPLETED Continuation of progress note: dialysis left arm fistula in place. No signs of infection thrill palpable Needs to get back on kidney transplant list now that other medical conditions are stabilized. Depressed mood, loves to [place] but cannot do it. He states patient really likes to go hunting. But he cannot do that any longer secondary to his condition. I told him I will give a letter to to submit with his hunting license. This will allow him to najera from a vehicle. his mood was improved immediately. Patient is no longer taking his cefdinir, azithromycin. Takes 16 units of glargine insulin orders for 20 so he does not run out. Not taking acetaminophen not taking albuterol is not taking clopidogrel 75 mg. /sepideh/ DRE ALEX MD Signed: 06/04/2024 10:41 06/12/2024 ADDENDUM STATUS: COMPLETED Team please call the patient and let him know that his results did not reveal anything acutely concerning. Definitely just to make sure that he finished the antibiotics that [facility]. It sometimes does take a little bit longer on the imaging to see that the infiltrate is resolving. There was nothing concerning in his abdomen. That is great news. CT chest abdomen pelvis impression: 1. Chronic findings as noted 2. Left basilar infiltrate/effusion 3. No acute intra-abdominal/intrapelvic process LDCT done 04/2024 just a reminder due again in 12 months. For follow-up which is already scheduled Tell the patient good luck and to get back on the transplant list keep us posted /addie ALEX MD Signed: 06/12/2024 11:00 Receipt Acknowledged By: 06/14/2024 14:42 /sepideh/ DAVID BROWN LPN 06/14/2024 ADDENDUM STATUS: COMPLETED called to review imaging result and states he is sleeping. She was made aware of results and voiced understanding. She said Orma is taking the antibiotic he was given. Encouraged to call for any concerns or questions. /es/ DAVID BROWN LPN Signed: 06/14/2024 14:43 07/01/2024 ADDENDUM STATUS: COMPLETED certified nursing assistant Dr. Owen Lazo privately (not consulted through [facility]) Script presented with letter for Omeprazole 20mg Delayed release 1 tab oral daily. Disp#90 with 3 refills. Stop Pantoprozole. /es/ DRE ALEX MD Signed: 07/01/2024 23:06 DRE ALEX [facility] May 30, 2024 08:54 AM PRIMARY CARE NURSI MONTSE NOTE: LOCAL TITLE: PRIMARY CARE NURSING PROGRESS NOTE (TEXT) NURSING P STANDARD TITLE: PRIMARY CARE NURSING NOTE DATE OF NOTE: MAY 30, 2024@08:54 ENTRY DATE: MAY 30, 2024@08:54:56 AUTHOR: GE WALDRON EXP COSIGNER: URGENCY: STATUS: COMPLETED PRIMARY CARE NURSING PROGRESS NOTE (TEXT) NURSING PB Has ADDENDA Established Patient LEONARD LEWIS IS A 74 YEAR OLD MALE BEING SEEN IN CLINIC MAY 30, 2024. = = REASON FOR VISIT: Annual visit, lab review. Instability with ambulation leg weakness. vomiting 6 times a month for 2 months. decreased appitite Are you receiving care any where other than the [facility]? Yes, List: NON [facility] GI [facility]. OR dermatology Dr. Mckeon, Cardiology [place], Pulmonology [place], [facility] AND SURGICAL HISTORY: Watchman device 03/19/2024, colonoscopy 09/2023 Does patient report using home oxygen? No CURRENT ACTIVE MEDICATIONS FOR REVIEW: Allergies/ADRs (Tool #5) FACILITY ALLERGY/ADR -------- No Remote Allergy/ADR Data available for this patient [facility] No Known Allergies Med. Reconciliation (Tool #1) INCLUDED IN THIS LIST: Alphabetical list of active outpatient prescriptions dispensed from this OR (local) and dispensed from another OR or [facility] facility (remote) as well as inpatient orders (local pending and active), local clinic medications, locally documented non-VA medications, and local prescriptions that have or been discontinued in the past 90 days. Non-VA Meds Last Documented On: May 21, 2020 NOTE The display of VA prescriptions dispensed from another OR or [facility] facility (remote) is limited to active outpatient prescription entries matched to National Drug File at the originating site and may not include some items such as investigational drugs, compounds, etc. NOT INCLUDED IN THIS LIST: Medications self-entered by the patient into personal health records (i.e. [employer]) are NOT included in this list. Non-VA medications documented outside this OR, remote inpatient orders (regardless of status) and remote clinic medications are NOT included in this list. The patient and provider must always discuss medications the patient is taking, regardless of where the medication was dispensed or obtained. OUTPT ACETAMINOPHEN 325MG TAB (Status = ) TAKE TWO TABLETS BY MOUTH FOUR TIMES A DAY NEEDED FOR PAIN CAUTION: DO NOT EXCEED 4000MG PER DAY ACETAMINOPHEN (APAP) FROM ALL MEDS. Rx# [id number] Last Released: 05/02/23 Qty/Days Supply: 200 Rx Expiration Date: 04/30/24 Refills Remainin Indication: FOR PAIN OUTPT ALBUTEROL 90MCG (CFC-F) 200D ORAL INHL (Status = ) INHALE 2 PUFFS ORAL INHALATION FOUR TIMES A DAY NEEDED FOR COPD SHAKE WELL. RINSE MOUTHPIECE FREQUENTLY TO PREVENT CLOGGING. Rx# [id number] Last Released: 05/02/23 Qty/Days Supply: 3 Rx Expiration Date: 04/30/24 Refills Remainin Indication: FOR COPD OUTPT ALLOPURINOL 100MG TAB (Status = Active) TAKE TWO TABLETS BY MOUTH ONCE A DAY FOR GOUT TAKE WITH PLENTY OF WATER. Rx# [id number] Last Released: 04/22/24 Qty/Days Supply: 180/90 Rx Expiration Date: 12/26/24 Refills Remainin Indication: FOR GOUT OUTPT ASCORBIC ACID 500MG TAB (Status = Active) TAKE TWO TABLETS BY MOUTH ONCE A DAY FOR VITAMIN SUPPLEMENTATION. Rx# [id number] Last Released: 04/22/24 Qty/Days Supply: 200/90 Rx Expiration Date: 12/26/24 Refills Remainin OUTPT ASPIRIN 81MG EC TAB (Status = Active) TAKE ONE TABLET BY MOUTH ONCE A DAY FOR HEART OR CIRCULATION. TAKE WITH FOOD. Rx# [id number] Last Released: 04/22/24 Qty/Days Supply: 120/90 Rx Expiration Date: 12/26/24 Refills Remainin OUTPT ATORVASTATIN CALCIUM 80MG TAB (Status = Active) TAKE ONE-HALF TABLET BY MOUTH EVERY EVENING FOR HIGH CHOLESTEROL Rx# [id number] Last Released: 04/17/24 Qty/Days Supply: 45/ Rx Expiration Date: 12/26/24 Refills Remainin Indication: FOR HIGH CHOLESTEROL OUTPT AZITHROMYCIN 250MG TAB (Status = Active) TAKE TWO TABLETS BY MOUTH EVERY DAY FOR 1 DAY, THEN TAKE ONE TABLET EVERY DAY FOR 4 DAYS FOR PNEUMONIA Rx# [id number] Last Released: 05/02/24 Qty/Days Supply: 6 Rx Expiration Date: 06/01/24 Refills Remainin Indication: FOR PNEUMONIA OUTPT BUPROPION HCL 300MG 24HR SA TAB (Status = Active) TAKE ONE TABLET BY MOUTH ONCE A DAY FOR DEPRESSION SWALLOW WHOLE - DO NOT CRUSH OR CHEW. Rx# [id number] Last Released: 04/22/24 Qty/Days Supply: 90/ Rx Expiration Date: 12/26/24 Refills Remainin Indication: FOR DEPRESSION OUTPT CARVEDILOL 25MG TAB (Status = Discontinued) TAKE ONE-HALF TABLET BY MOUTH TWICE A DAY FOR HIGH BLOOD PRESSURE TAKE WITH FOOD. Rx# [id number] Last Released: 02/08/24 Qty/Days Supply: Rx Expiration Date: 04/24/24 Refills Remainin Indication: FOR HIGH BLOOD PRESSURE OUTPT CARVEDILOL 25MG TAB (Status = Active) TAKE ONE-HALF TABLET BY MOUTH TWICE A DAY FOR HIGH BLOOD PRESSURE TAKE WITH FOOD. Rx# [id number] Last Released: 04/22/24 Qty/Days Supply: Rx Expiration Date: 03/13/25 Refills Remainin Indication: FOR HIGH BLOOD PRESSURE OUTPT CEFDINIR 300MG CAP (Status = Active) TAKE ONE CAPSULE BY MOUTH ONCE A DAY FOR PNEUMONIA TAKE UNTIL GONE UNLESS OTHERWISE DIRECTED. Rx# [id number] Last Released: 05/02/24 Qty/Days Supply: 03/10 Rx Expiration Date: 06/01/24 Refills Remainin Indication: FOR PNEUMONIA OUTPT CHOLECALCIF 50MCG (D3-2,000UNIT) TAB (Status = Discontinued) TAKE ONE TABLET BY MOUTH ONCE A DAY FOR VITAMIN D SUPPLEMENTATION Rx# [id number] Last Released: 03/05/24 Qty/Days Supply: Rx Expiration Date: 04/30/24 Refills Remainin Indication: FOR VITAMIN D SUPPLEMENTATION OUTPT CHOLECALCIF 50MCG (D3-2,000UNIT) TAB (Status = Active) TAKE ONE TABLET BY MOUTH ONCE A DAY FOR VITAMIN D SUPPLEMENTATION Rx# [id number] Last Released: 05/14/24 Qty/Days Supply: Rx Expiration Date: 03/13/25 Refills Remainin Indication: FOR VITAMIN D SUPPLEMENTATION OUTPT CLOPIDOGREL BISULFATE 75MG TAB (Status = ) TAKE ONE TABLET BY MOUTH ONCE A DAY Rx# [id number] Last Released: 04/19/24 Qty/Days Supply: Rx Expiration Date: 04/30/24 Refills Remainin Indication: PAD OUTPT COLCHICINE 0.6MG TAB (Status = Discontinued) TAKE ONE-HALF TABLET BY MOUTH TWO TIMES PER WEEK FOR GOUT (STOP MED AND CONTACT PROVIDER AT FIRST SIGN OF NAUSEA, VOMITING OR DIARRHEA) Rx# [id number] Last Released: 03/05/24 Qty/Days Supply: Rx Expiration Date: 05/05/24 Refills Remainin OUTPT COLCHICINE 0.6MG TAB (Status = Active) TAKE ONE-HALF TABLET BY MOUTH TWO TIMES PER WEEK FOR GOUT (STOP MED AND CONTACT PROVIDER AT FIRST SIGN OF NAUSEA, VOMITING OR DIARRHEA) Rx# [id number] Last Released: 03/13/24 Qty/Days Supply: Rx Expiration Date: 03/13/25 Refills Remainin OUTPT CREON 12,000UNIT EC CAP (Status = Active) TAKE 3 CAPSULES BY MOUTH THREE TIMES A DAY BEFORE MEALS FOR PANCREATIC INSUFFICIENCY TAKE WITH FOOD DIRECTED. Rx# [id number] Last Released: 04/22/24 Qty/Days Supply: Rx Expiration Date: 01/11/25 Refills Remainin Indication: FOR PANCREATIC INSUFFICIENCY OUTPT FERROUS SULFATE 325MG TAB (Status = Discontinued) TAKE ONE TABLET BY MOUTH TWICE A DAY FOR IRON DEFICIENCY ANEMIA Rx# [id number] Last Released: 03/11/24 Qty/Days Supply: 200 Rx Expiration Date: 05/30/24 Refills Remainin Indication: FOR IRON DEFICIENCY ANEMIA OUTPT FERROUS SULFATE 325MG TAB (Status = Active) TAKE ONE TABLET BY MOUTH TWICE A DAY FOR IRON DEFICIENCY ANEMIA Rx# [id number] Last Released: 05/17/24 Qty/Days Supply: 200/90 Rx Expiration Date: 03/13/25 Refills Remainin Indication: FOR IRON DEFICIENCY ANEMIA OUTPT INSULIN,ASPART(EQV-NOVLG)100 UN/ML FLXPEN (Status = Active) INJECT 12 UNITS UNDER THE SKIN THREE TIMES A DAY BEFORE MEALS FOR BLOOD SUGAR CONTROL. ADMINISTER 10 MINUTES BEFORE FOOD DIRECTED. REFRIGERATE UN-OPENED PENS. DISCARD CARTRIDGE 28 DAYS AFTER OPENING. Rx# [id number] Last Released: 12/28/23 Qty/Days Supply: Rx Expiration Date: 12/26/24 Refills Remainin OUTPT INSULIN,GLARGINE-YFGN 100UNIT/ML PEN 3ML (Status = Active) INJECT 20 UNITS UNDER THE SKIN ONCE A DAY FOR BLOOD SUGAR CONTROL. ADMINISTER AT SAME TIME EACH DAY DIRECTED. DISCARD ANY OPEN CARTRIDGE AFTER 28 DAYS. Rx# [id number] Last Released: 12/28/23 Qty/Days Supply: Rx Expiration Date: 12/26/24 Refills Remainin OUTPT LIDOCAINE 2.5/PRILOCAINE 2.5% CREAM (Status = Active) APPLY LIGHTLY TO AFFECTED AREA(S) DIRECTED NEEDED BEFORE NEEDLE STICK Rx# [id number] Last Released: 04/22/24 Qty/Days Supply: Rx Expiration Date: 02/28/25 Refills Remainin Indication: BEFORE NEEDLE STICK OUTPT MIDODRINE HCL 5MG TAB (Status = Active) TAKE ONE TABLET BY MOUTH THREE TIMES A DAY FOR LOW BLOOD PRESSURE/DIZZINESS. Rx# [id number] Last Released: 04/22/24 Qty/Days Supply: Rx Expiration Date: 12/26/24 Refills Remainin Indication: FOR LOW BLOOD PRESSURE OUTPT OMEPRAZOLE 20MG EC CAP (Status = On Hold) TAKE ONE CAPSULE BY MOUTH EVERY MORNING BEFORE A MEAL TO LOWER STOMACH ACID. TAKE 30 MINUTES PRIOR TO FOOD. Rx# [id number] Last Released: 11/24/23 Qty/Days Supply: Rx Expiration Date: 08/04/24 Refills Remainin OUTPT ONDANSETRON 4MG ORAL DISINTEGRATING TAB (Status = Active) TAKE ONE TABLET UNDER THE TONGUE EVERY EIGHT(8) HOURS NEEDED FOR NAUSEA/VOMITING Rx# [id number] Last Released: 05/02/24 Qty/Days Supply: 03/07 Rx Expiration Date: 06/01/24 Refills Remainin Indication: FOR NAUSEA/VOMITING OUTPT OXYBUTYNIN CHLORIDE 5MG TAB (Status = Active) TAKE ONE TABLET BY MOUTH THREE TIMES A DAY NEEDED FOR BLADDER Rx# [id number] Last Released: 04/22/24 Qty/Days Supply: Rx Expiration Date: 12/26/24 Refills Remainin OUTPT PANTOPRAZOLE NA 40MG EC TAB (Status = Active) TAKE ONE TABLET BY MOUTH EVERY MORNING BEFORE A MEAL FOR GASTROESOPHAGEAL REFLUX DISEASE TAKE 30 MINUTES BEFORE MEAL(S) Rx# [id number] Last Released: 03/18/24 Qty/Days Supply: Rx Expiration Date: 03/13/25 Refills Remainin Indication: FOR GASTROESOPHAGEAL REFLUX DISEASE OUTPT POLYETHYLENE GLYCOL 3350 ORAL PWDR (Status = Active) MIX AND DRINK 1 CAPFUL BY MOUTH ONCE A DAY NEEDED FOR CONSTIPATION (MEASURE WITH CAP AND MIX IN 8 OZ OF WATER) Rx# [id number] Last Released: 05/02/24 Qty/Days Supply: 510/30 Rx Expiration Date: 06/01/24 Refills Remainin Indication: FOR CONSTIPATION OUTPT RENAL MULTIVIT W/1MG OR LESS FA TAB (Status = Active) TAKE 1 TABLET BY MOUTH ONCE A DAY FOR NUTRITION/DIETARY SUPPLEMENTATION Rx# [id number] Last Released: 04/22/24 Qty/Days Supply: 100/90 Rx Expiration Date: 01/11/25 Refills Remainin Indication: FOR NUTRITION/DIETARY SUPPLEMENTATION OUTPT SEVELAMER CARBONATE 800MG TAB (Status = Discontinued) TAKE THREE TABLETS BY MOUTH THREE TIMES A DAY WITH MEAL(S) FOR HYPERPHOSPHATEMIA. TAKE WITH FOOD. Rx# [id number] Last Released: 02/08/24 Qty/Days Supply: 810/90 Rx Expiration Date: 04/30/24 Refills Remainin OUTPT SEVELAMER CARBONATE 800MG TAB (Status = Active) TAKE THREE TABLETS BY MOUTH THREE TIMES A DAY WITH MEAL(S) FOR HYPERPHOSPHATEMIA. TAKE WITH FOOD. Rx# [id number] Last Released: 04/25/24 Qty/Days Supply: 810/90 Rx Expiration Date: 03/13/25 Refills Remainin OUTPT SODIUM BICARBONATE 650MG TAB (Status = Active) TAKE ONE TABLET BY MOUTH FOUR TIMES A DAY FOR DIALYSIS Rx# [id number] Last Released: 03/05/24 Qty/Days Supply: 360/90 Rx Expiration Date: 10/20/24 Refills Remainin Indication: FOR DIALYSIS OUTPT TAMSULOSIN HCL 0.4MG CAP (Status = Discontinued) TAKE TWO CAPSULES BY MOUTH EVERY EVENING FOR BENIGN PROSTATIC HYPERPLASIA APPROXIMATELY 30 MINUTES AFTER THE SAME MEAL EACH DAY (FOR PROSTATE) Rx# [id number] Last Released: 03/11/24 Qty/Days Supply: 60/30 Rx Expiration Date: 04/13/24 Refills Remainin Indication: FOR BENIGN PROSTATIC HYPERPLASIA OUTPT TAMSULOSIN HCL 0.4MG CAP (Status = Active) TAKE TWO CAPSULES BY MOUTH EVERY EVENING FOR BENIGN PROSTATIC HYPERPLASIA APPROXIMATELY 30 MINUTES AFTER THE SAME MEAL EACH DAY (FOR PROSTATE) Rx# [id number] Last Released: 03/16/24 Qty/Days Supply: 180/90 Rx Expiration Date: 03/13/25 Refills Remainin Indication: FOR BENIGN PROSTATIC HYPERPLASIA SUPPLIES OUTPT ACCU-CHEK GUIDE (GLUCOSE) TEST STRIP (Status = Discontinued) USE 1 STRIP FOR BLOOD TEST FOUR TIMES A DAY FOR BLOOD SUGAR MONITORING Rx# [id number] Last Released: 12/28/23 Qty/Days Supply: 400/90 Rx Expiration Date: 03/25/24 Refills Remainin Indication: FOR BLOOD SUGAR MONITORING OUTPT ACCU-CHEK GUIDE (GLUCOSE) TEST STRIP (Status = Active) USE 1 STRIP FOR BLOOD TEST FOUR TIMES A DAY FOR BLOOD SUGAR MONITORING Rx# [id number] Last Released: 03/18/24 Qty/Days Supply: 400/90 Rx Expiration Date: 06/10/24 Refills Remainin Indication: FOR BLOOD SUGAR MONITORING OUTPT NEEDLE,PEN 31G,8MM (Status = Active) USE 1 NEEDLE UNDER THE SKIN FOUR TIMES A DAY FOR INJECTION Rx# [id number] Last Released: 12/28/23 Qty/Days Supply: 400/90 Rx Expiration Date: 07/20/24 Refills Remainin Indication: FOR INJECTION PHARMACY TERMS AND POSSIBLE PATIENT ACTIONS INPT = OR inpatient order IV = OR intravenous medication OUTPT = OR outpatient prescription PHARMACY POSSIBLE PATIENT TERMS EXPLANATION ACTIONS -------- ---- ACTIVE A prescription that can be If you have refills, filled at the local [facility] pharmacy. you may request a refill of this prescription from your VA pharmacy. CLINIC A medication you received during If you have questions a visit to a VA clinic or about this medication emergency department. [...] the [facility]. Or, it may be an [id number] (OTC), herbal, dietary supplements or sample medication. [...] An active prescription that is Contact your OR not scheduled to be filled yet. pharmacy if you need You should receive it before this medication now. you run out. Patient reports taking medications as ordered. IS PATIENT TAKING ANY OVER THE COUNTER MEDICATIONS, SUCH VITAMINS OR HERBAL SUPPLEMENTS, INCLUDING ANY MEDICATIONS PRESCRIBED BY ANOTHER PHYSICIAN? No ALLERGIES/ADVERSE REACTIONS: Patient has answered NKA Does patient have any new allergies to report since last visit? NO VITALS: TEMPERATURE: 97.7 F [36.5 C] (05/02/2024 09:49) BP: 122/62 (05/02/2024 09:49) RESP: 18 (05/02/2024 09:49) PULSE: 66 (05/02/2024 09:49) HT: 67 in [170.2 cm] (05/30/2023 09:19) WT: 180 lb [81.65 kg] (05/02/2024 09:49) BMI: 28.3 PAIN ASSESSMENT: (Most Recent Pain Score in Vitals Package: 0 (05/02/2024 09:49) ) The patient indicated that they and their close contacts have not traveled outside of the [place] in the past 21 days. The patient reports the following symptoms: No symptoms present The patient is immunocompromised. Comment: renal failure The patient does not report having a [...] Not At All SPIRITUAL ASSESSMENT: Are there islam practices or spiritual concerns you want the banquet food server, your physician, and other health care team members to immediately know about? No Patient advised to call the clinic for any concerns, questions, or symptoms. Patient and/or caregiver verbalized understanding of plan of care. Frail/Elderly Screen: ADL Screen - [place] Index of [place] in Activities of Daily Living Bathing: (1 Point) Recieves assistance in bathing more than one part of the body (or not bathed) Dressing: (3 Points) Gets clothes and gets [...] Points) Feeds self without assistance Total Score: 16 Points 18 = High (patient independent) 6 = Low (patient very dependent) IADL Screen - David Instrumental Activities of Daily Living Scale Ability to use telephone: (1 point) Operates Telephone on own initiative; looks up and dials numbers. Shopping: (0 points) Needs to be accompanied on any shopping trip. Food preparation: (0 points) Heats and serves prepared meals, or prepares meals but does not maintain adequate diet. Housekeeping: (1 point) Performs light daily tasks, but cannot maintain acceptable level of cleanliness. Laundry: (1 point) Launders small items, rinses socks, stockings, etc. Mode of transportation: (0 points) Travel limited to taxi or automobile with assistance of another. Responsibility for own medications: (0 points) Takes responsibility if medication is prepared in advance in separate dosages. Ability to handle finances: (1 point) Manages financial matters independently (budgets, writes checks, pays rent and bills, goes to bank); collects and keeps track of income. Total score: 4 points 8 = High function, independent 0 = Low function, dependent Falls Screen: Two or more falls within the last 12 months. Incontinence Screen No incontinence. FALL RISK OP PB: LATASHA FALL RISK ASSESSMENT Have you experienced any falls within the last 12 months: 10 = Yes Secondary Dx: 5 = Yes Secondary Dx Ambulatory Aid: 0 = No Gait/Transferrin = Weak Mental status: 0 = Oriented to own ability Medications: 5 = High risk meds TOTAL SCORE: 25 Score <30 - patient IS NOT at risk for falls. No action at this time. Reassess annually or if needed. Fall Documentation Yes - Patient experienced a fall within the last year. Type of fall that occurred: Two or more falls Alcohol Use Screen (AUDIT-C): Alcohol Screen: SCREEN FOR ALCOHOL (AUDIT-C) An alcohol screening test (AUDIT-C) was negative (score=0). 1. How often did you have a drink containing alcohol in the past year? Consider a drink to be a 12 ounce can or bottle of regular beer, 8 ounces of malt liquor, a 5 ounce glass of table wine, or a 1.5 ounce shot of liquor (like scotch, gin, or vodka). Never 2. How many drinks containing alcohol did you have on a typical day when you were drinking in the past year? Response not required due to responses to other questions. 3. How often did you have six or more drinks on one occasion in the past year? Response not required due to responses to other questions. COVID-19 Immunization: Refused Moderna Monovalent COVID-19 vaccine Immunization: COVID-19 (MODERNA), MRNA, LNP-S, PF, 50 MCG/0.5 ML (AGES 12+ YEARS) Refusal Reason: PATIENT DECISION Patient refuses all immunization(s) in the COVID-19 group Date Documented: 05/30/24 09:18 Tobacco Use Screening: The patient is a former tobacco user. The patient quit fifteen or more years ago. Influenza Immunization: Deferral / Refusal The patient declines to receive the recommended dose of seasonal influenza vaccine. Immunization: INFLUENZA, UNSPECIFIED FORMULATION Refusal Reason: PATIENT DECISION Patient refuses all immunization(s) in the FLU group Date Documented: 05/30/24 09:19 Pain Assessment: - PAIN ASSESSMENT: .. Patient reports no pain at this visit. Pain Score = 0. Patient's self identified pain goal: 0 Patient/Nurse Interview: * * Patient stated that adequate information was received regarding the condition and/or treatment. PAVE Foot Check: A complete foot check was completed at this encounter. VISUAL INSPECTION: Includes inspection for skin breaks, deformity, erythema, trauma, pallor on elevation, dependent rubor, nail deformities, extensive callus and pitting edema. Visual exam results: Normal Comment: thickened toenails PEDAL PULSES: Includes palpation of dorsalis and posterior tibial pulses and signs/symptoms of vascular compromise like pain, pallor, parasthesia or paralysis. Present (even if diminished) SENSORY CHECK: Includes 10 gram Monofilament ([place]-Cale) test of sensation. Intact (Greater than or equal to 80% of sites checked) Abnormal (Less than 80% of sites checked): Intact LOW-RISK: LOW RISK INFORMATION PROVIDED: 1. Advised patient not to walk barefoot. 2. Explained the importance of daily foot checks for changes. 3. Stressed the importance of daily foot hygiene, including bathing and complete drying. Depression Screening: Perform PHQ-2 A PHQ-2 screen was performed. The score was 4 which is a positive screen for depression. Over the past two weeks, how often have you been bothered by the following problems? 1. Little interest or pleasure in doing things Several days 2. Feeling down, depressed, or hopeless Nearly every day Licensed Independent Provider notified of positive screen and need for follow-up. Name of provider notified: Dr. Alex /sepideh/ [facility] Signed: 05/30/2024 09:23 05/30/2024 ADDENDUM STATUS: COMPLETED Per [facility] Directive 1605.06, wristband documentation: Patient wristband was removed and destroyed by (staff name) Ge Waldron and placed in the designated SHred-It bin. /sepideh/ [facility] Signed: 05/30/2024 13:28 GE WALDRON [facility]
--- OUTSIDE RECORDS SUMMARY | 2024-09-07 10:58 | XMS_ITS | Encounter Summary ---
Author Name [facility] [place] Address [address] [place] [address] Care Team Providers Care Cataloging Assistant Name Role Phone DRE ALEX Primary Care [...] PART B Mar 04, 2012 PART B [id number] [phone] LEONARD LEWIS PATIENT MEDICARE (WNR) MEDICARE (M) PART A Mar 04, 2012 PART A [id number] [phone] LEONARD LEWIS PATIENT MEDICARE (WNR) MEDICARE (M) PART A Mar 04, 2012 PART A [id number] LEONARD LEWIS PATIENT MEDICARE (WNR) MEDICARE (M) PART B Mar 04, 2012 PART B [id number] LEONARD LEWIS PATIENT MEDICARE (WNR) MEDICARE (M) PART A Mar 04, 2012 PART A [id number] LEONARD LEWIS PATIENT MEDICARE (WNR) MEDICARE (M) PART B Mar 04, 2012 PART B [id number] [phone] LEONARD LEWIS PATIENT -FO R-LIFE TRICA RE FOR LIFE WNR Aug 31, 2016 FOR LIFE [id number] LEONARD LEWIS PATIENT -FO R-LIFE TRICA RE FOR LIFE WNR Aug 31, 2016 FOR LIFE [id number] [phone] LEONARD LEWIS PATIENT Selected Encounter This section includes the information on record at [place] for the Encounter. Date/Time Encounter Type Encounter Description Reason Pro vider Source Jul 11, 2024 10:41 AM Outpatient Encounter ADMIN PAT ACTIVTIES (MASNONCT) IHE Encounter Template Text not used by [place] Plan of Treatment: Future Appointments (+ 6 months) and Future Tests (+/- 45 days) The Plan of Treatment section includes future care activities for the patient from all [place] treatmentfacilities. This section includes future appointments and future orders which are active, pending or scheduled. Future Appointments This section includes appointments that were scheduled to occur 6 months from the date of the Encounter, up to a maximum of 20 appointments. The data comes from all [place] treatment facilities. Appointment Date/Time Appointment Type Appointme nt Facility Name Oct 30, 2024 03:00 PM AMBULATORY - MEDICINE JUVENTINO BONILLA [facility] Nov 28, 2024 08:40 AM AMBULATORY - MEDICINE [facility] Active, Pending, and Scheduled Orders This section includes a listing of several types of active, pending, and scheduled orders, including clinic medications orders, diagnostic test orders, procedure orders and consult orders; where the start date of the order is 45 days before the date of the Encounter or 45 days after the date of theEncounter. The data comes from all [place] treatment facilities. Test Date/Time Test Type Test Details Facility Name Jul 11, 2024 04:25 PM Consult Order COMMUNITY CARE-COLONOSCOPY SURVEILLANCE [id number] Cons Digital Media Coordinator's Choice RICARDO [facility] Advance Directives: All historical and current Section Date Range: From patient's date of to the date document was created. This section includes ALL of a patient's completed or amended [place] Advance and Rescinded Directives. The entries below indicate that a directive exists for the patient, but an actual copy is not included with this document. The data comes from all [place] facilities. Date Advance Directives Provider Source May 07, 2014 ADVANCE DIRECTIVE JUAN GILLETTE [facility] [place] [facility] Radiology Reports: +/- 30 days of [...] the Encounter. The data comes from all [place] treatment facilities. Date/Time Radiology Report Provider Source Jun 11, 2024 08:[address] ABDOMEN PELVIS W/O CONTRAST-P: LEONARD LEWIS [facility] [id number] -1950 M Exm Date: JUN 11, 2024@08:34 Req Phys: DRE ALEX Loc: PB-JT PACT DELTA PCP (Req'g L Img Loc: PB-CT IMAGING Service: Unknown [facility] [place] [address] (Case [id number] COMPLETE) CT ABDOMEN AND PELVIS W/O CONTRAS(CT Detailed) CPT:24214 Reason for Study: abdominla pain, fu from AAS Clinical History: Report Status: Verified Date Reported: JUN 11, 2024 Date Verified: JUN 11, 2024 Iron Pourer E-Sig:/ES/MAIKOL HINKLE Report: Procedure: CT chest/abdomen/pelvis HISTORY: [...] process Primary Interpreting Staff: MAIKOL HINKLE, RADIOLOGIST (Iron Pourer) /MAIKOL Hardwick [facility] Jun 11, 2024 08:[address] THORAX, DIAGNOS TIC W/O CONTRAST: LEONARD LEWIS [id number] -1950 M Exm Date: JUN 11, 2024@08:33 Req Phys: DRE ALEX Loc: PB-JT PACT DELTA PCP (Aleksandar'g Filippo Img Loc: PB-CT IMAGING Service: Unknown [facility] [place] [address] (Case [id number] COMPLETE) CT THORAX, DIAGNOSTIC W/O CONTRAS(CT Detailed) CPT:86061 Reason for Study: fu on effusion Clinical History: can do at same time with ct abd pelvis, per Dr Mckeon request Report Status: Verified Date Reported: JUN 11, 2024 Date Verified: JUN 11, 2024 Iron Pourer E-Sig:/ES/MAIKOL HINKLE Report: Procedure: CT chest/abdomen/pelvis HISTORY: [...] process Primary Interpreting Staff: MAIKOL HINKLE, RADIOLOGIST (Iron Pourer) /MAIKOL Hardwick [facility] Jun 11, 2024 08:08 AM CHEST X-RAY, 2 VIE WS: LEONARD LEWIS [id number] -1950 [facility] Date: JUN 11, 2024@08:08 Req Phys: DARRYL COBURN Loc: PB-CARLYN WALTON (Req'g Loc) [facility] Loc: PB-RADIOLOGY Service: Unknown LUZ MARIA [facility] [place] [address] (Case [id number] COMPLETE) CHEST X-RAY, 2 VIEWS (RAD Detailed) CPT:61278 Reason for Study: follow-up on infiltrate Clinical History: follow-up on infiltrate Report Status: Verified Date Reported: JUN 11, 2024 Date Verified: JUN 11, 2024 Iron Pourer E-Sig:/ES/RONI MCKEON Report: Chest 2 views. No [...] indicated Primary Interpreting Staff: RONI MCKEON, RADIOLOGIST (Iron Pourer) /RONI Hi POPLAR BLU[place] [facility] Encounter Notes: All associated encounter notes This section contains the clinical notes associated to the Encounter. Date/Time Encounter Note(s) Provider Source Jul 11, 2024 11:36 AM ADDENDUM: LOCAL TITLE: Addendum STANDARD TITLE: ADDENDUM DATE OF NOTE: JUL 11, 2024@11:36:24 ENTRY DATE: JUL 11, 2024@11:36:25 AUTHOR: DAVID BROWN EXP COSIGNER: URGENCY: STATUS: COMPLETED reports Lovilia was changed to protonix after his heart surgery but he kept having alot of vomiting of bile. It was decided to change him back to omeprazole and the vomiting stopped and he tolerates the Omeprazole without issues. /sepideh/ DAVID BROWN LPN Signed: 07/11/2024 11:37 Receipt Acknowledged By: 07/18/2024 14:42 /sepideh/ DRE ALEX MD --- Original Document --- 07/11/24 MEDICATION RENEWAL/REFILL PB: LEONARD LEWIS has contacted the [facility] and is requesting that the following prescription(s) be renewed. The patient reports that he/she is currently LOW on his/her supply of medication. He/she is requesting a new supply be mailed by Jul MEDICATION REQUESTED: OMEPRAZOLE CAP,EC 20MG The patients gasterologist would like to increase this medication to twice a day as needed. Please snd in a new prescription as soon as possible. /es/ MINA LAND [facility] Signed: 07/11/2024 10:43 Receipt Acknowledged By: 07/16/2024 12:33 /sepideh/ DAVID BROWN LPN 07/18/2024 14:42 /sepideh/ DRE ALEX MD 07/11/2024 ADDENDUM STATUS: COMPLETED Clarification: the omeprazole needs to be 20mg daily and bid if needed. /sepideh/ DAVID BROWN LPN Signed: 07/11/2024 11:34 Receipt Acknowledged By: * AWAITING SIGNATURE * DRE ALEX SHEILA R POPLAR BLUFF [facility] Jul 11, 2024 11:33 AM ADDENDUM: LOCAL TITLE: Addendum STANDARD TITLE: ADDENDUM DATE OF NOTE: JUL 11, 2024@11:33:35 ENTRY DATE: JUL 11, 2024@11:33:35 AUTHOR: DAVID BROWN EXP COSIGNER: URGENCY: STATUS: COMPLETED Clarification: the omeprazole needs to be 20mg daily and bid if needed. /sepideh/ DAVID BROWN LPN Signed: 07/11/2024 11:34 Receipt Acknowledged By: 07/18/2024 14:43 /sepideh/ DRE ALEX MD --- Original Document --- 07/11/24 MEDICATION RENEWAL/REFILL PB: LEONARD LEWIS has contacted the [facility] and is requesting that the following prescription(s) be renewed. The patient reports that he/she is currently LOW on his/her supply of medication. He/she is requesting a new supply be mailed by Jul MEDICATION REQUESTED: OMEPRAZOLE CAP,EC 20MG The patients gasterologist would like to increase this medication to twice a day as needed. Please snd in a new prescription as soon as possible. /sepideh/ [facility] Signed: 07/11/2024 10:43 Receipt Acknowledged By: 07/16/2024 12:33 /addie BROWN LPN 07/18/2024 14:42 /addie ALEX MD 07/11/2024 ADDENDUM STATUS: COMPLETED reports was changed to protonix after his heart surgery but he kept having alot of vomiting of bile. It was decided to change him back to omeprazole and the vomiting stopped and he tolerates the Omeprazole without issues. /sepideh/ DAVID BROWN LPN Signed: 07/11/2024 11:37 Receipt Acknowledged By: 07/18/2024 14:42 /sepideh/ DAVID GALINDO [place] [facility] Jul 11, 2024 10:45 AM ADMINISTRATIVE NOT E: LOCAL TITLE: ADMINISTRATIVE NOTE PB STANDARD TITLE: ADMINISTRATIVE NOTE DATE OF NOTE: JUL 11, 2024@10:45 ENTRY DATE: JUL 11, 2024@10:45:20 AUTHOR: MINA LAND EXP COSIGNER: URGENCY: STATUS: COMPLETED ADMINISTRATIVE NOTE PB Has ADDENDA Patient is needing a colonoscopy to complete his transplant. Patient would like to have done by Dr Chicas if possible. He would need an appt on a Monday or as he does dialysis on Monday, Monday, and Monday. Please call his Doug with an update as soon as possible at [phone]. The results of the colonoscopy will need sent to his transplant team at [facility] [place], [place]. /sepideh/ MINA LAND [facility] [place] [facility] Signed: 07/11/2024 10:48 Receipt Acknowledged By: 07/11/2024 11:38 /addie BROWN LPN 07/22/2024 14:41 /addie ALEX MD 07/11/2024 ADDENDUM STATUS: COMPLETED Contacted and made aware that DR Chicas is only approved to do colonoscopy at [facility]. voiced understanding and in agreement. Requests to go ahead with Dr Chicas at [facility]. /sepideh/ DAVID BROWN LPN Signed: 07/11/2024 11:33 MINA LAND [facility] Jul 11, 2024 10:42 AM PRIMARY CARE MEDIC ATION MGT NOTE: LOCAL TITLE: MEDICATION RENEWAL/REFILL PB STANDARD TITLE: PRIMARY CARE MEDICATION MGT NOTE DATE OF NOTE: JUL 11, 2024@10:42 ENTRY DATE: JUL 11, 2024@10:42:09 AUTHOR: MINA LAND EXP COSIGNER: URGENCY: STATUS: COMPLETED MEDICATION RENEWAL/REFILL PB Has ADDENDA LEONARD LEWIS has contacted the [facility] and is requesting that the following prescription(s) be renewed. The patient reports that he/she is currently LOW on his/her supply of medication. He/she is requesting a new supply be mailed by Jul MEDICATION REQUESTED: OMEPRAZOLE CAP,EC 20MG The patients gasterologist would like to increase this medication to twice a day as needed. Please snd in a new prescription as soon as possible. /sepideh/ MINA LAND [facility] Signed: 07/11/2024 10:43 Receipt Acknowledged By: 07/16/2024 12:33 /sepideh/ DAVID BROWN LPN 07/18/2024 14:42 /sepideh/ DRE ALEX MD 07/11/2024 ADDENDUM STATUS: COMPLETED Clarification: the omeprazole needs to be 20mg daily and bid if needed. /sepideh/ DAVID BROWN LPN Signed: 07/11/2024 11:34 Receipt Acknowledged By: * AWAITING SIGNATURE * DRE ALEX 07/11/2024 ADDENDUM STATUS: COMPLETED reports was changed to protonix after his heart surgery but he kept having alot of vomiting of bile. It was decided to change him back to omeprazole and the vomiting stopped and he tolerates the Omeprazole without issues. /sepideh/ DAVID BROWN LPN Signed: 07/11/2024 11:37 Receipt Acknowledged By: * AWAITING SIGNATURE * DRE ALEX JESSIKA S POPLAR BLUFF [facility]
--- OUTSIDE RECORDS SUMMARY | 2024-09-07 10:58 | XMS_ITS | Encounter Summary ---
Author Name [facility] [place] Address [address] [place] [address] Care Team Providers Care Senior Sales Representative Name Role Phone DRE ALEX Primary Care [...] PART B Mar 04, 2012 PART B [id number] [phone] ALONSO DELGADO PATIENT MEDICARE (WNR) MEDICARE (M) PART A Mar 04, 2012 PART A [id number] ALONSO DELGADO PATIENT MEDICARE (WNR) MEDICARE (M) PART A Mar 04, 2012 PART A [id number] ALONSO DELGADO PATIENT MEDICARE (WNR) MEDICARE (M) PART B Mar 04, 2012 PART B [id number] ALONSO DELGADO PATIENT MEDICARE (WNR) MEDICARE (M) PART A Mar 04, 2012 PART A [id number] [phone] ALONSO DELGADO PATIENT MEDICARE (WNR) MEDICARE (M) PART B Mar 04, 2012 PART B [id number] ALONSO DELGADO PATIENT -FO R-LIFE TRICA RE FOR LIFE WNR Aug 31, 2016 FOR LIFE [id number] ALONSO DELGADO PATIENT -FO R-LIFE TRICA RE FOR LIFE WNR Aug 31, 2016 FOR LIFE [id number] [phone] ALONSO DELGADO PATIENT Selected Encounter This section includes the information on record at [place] for the Encounter. Date/Time Encounter Type Encounter Description Reason Pro vider Source Jul 24, 2024 01:34 PM Outpatient Encounter COMMUNITY CARE CONSULT IHE [...] 03:00 PM AMBULATORY - MEDICINE [facility]INO [facility]ILLA [facility] Nov 28, 2024 08:40 AM AMBULATORY - MEDICINE [facility] Active, Pending, and Scheduled Orders This section includes a listing of several types of active, pending, and scheduled orders, including clinic medications orders, diagnostic test orders, procedure orders and consult orders; where the start date of the order is 45 days before the date of the Encounter or 45 days after the date of theEncounter. The data comes from all [place] treatment facilities. Test Date/Time Test Type Test Details Facility Name Jul 11, 2024 04:25 PM Consult Order COMMUNITY CARE-COLONOSCOPY SURVEILLANCE [id number] Cons Third Grade Teacher's Choice R[facility]ARDO [facility] Advance Directives: All historical and [...] ADVANCE DIRECTIVE JUAN GILLETTE [place] [facility] [place] [facility] Encounter Notes: All associated encounter notes This section contains the clinical notes associated to the Encounter. Date/Time Encounter Note(s) Provider Source Jul 24, 2024 01:34 PM LETTERS: LOCAL TITLE: COMMUNITY CARE-REFERRAL PB (AUTO-PRINT) STANDARD TITLE: LETTERS DATE OF NOTE: JUL 24, 2024@13:34:02 ENTRY DATE: JUL 24, 2024@13:34:02 AUTHOR: RENEE CARLSON COSIGNER: URGENCY: STATUS: COMPLETED Alonso Delgado [address] [place], [place] [address] Dear ALONSO DELGADO, Your [facility] provider has referred you to a provider within the community for care. Your medical care for GASTROENTEROLOGY has been authorized with the Community Care Provider listed below. DO NOT REPORT TO THE [facility] Provider info: An appointment has been scheduled for you on: Oct 30, 2024 03:00 PM Office Name: [facility] Address: [address] [address] Address: [place], [place] Auth #: [id number] Referral Issue Date: 07/16/2024 Expiration Date: 01/28/2025 If you are unable to keep this appointment or the appointment is no longer needed, please contact the community provider above for notification/rescheduling and then call the [place] [facility] Care Office at [phone] Ext [phone]. If you need additional care/services not mentioned [...] medication. In-network locations can be found at https://www.[place].gov/find-locati [email or web address] Medical Devices: Your community provider may recommend [...] 72hr or ER visit and/or admission by [phone]. Thank you for the opportunity to serve you and for your service to our great nation! Renee Archerhing [facility] Care in the Community [address] [place] [address] RENEE CARLSON [facility]
--- OUTSIDE RECORDS SUMMARY | 2024-09-07 10:58 | XMS_ITS | Encounter Summary ---
Author Name [facility] [place] [facility] [place] Address [address] [place] [address] Care Team Providers Care Customer Service Representative Teacher Name Role Phone DRE ALEX Primary [...] PART B Mar 04, 2012 PART B [id number] [phone] LEONARD LEWIS PATIENT MEDICARE (WNR) MEDICARE (M) PART A Mar 04, 2012 PART A [id number] LEONARD LEWIS PATIENT MEDICARE (WNR) MEDICARE (M) PART B Mar 04, 2012 PART B [id number] LEONARD LEWIS PATIENT MEDICARE (WNR) MEDICARE (M) PART A Mar 04, 2012 PART A [id number] LEONARD LEWIS PATIENT MEDICARE (WNR) MEDICARE (M) PART A Mar 04, 2012 PART A [id number] [phone] LEONARD LEWIS PATIENT MEDICARE (WNR) MEDICARE (M) PART B Mar 04, 2012 PART B [id number] LEONARD LEWIS PATIENT -FO R-LIFE [facility] WNR Aug 31, 2016 [facility] LIFE [id number] [phone] LEONARD LEWIS PATIENT -FO R-LIFE [facility] WNR Aug 31, 2016 [facility] LIFE [id number] [phone] LEONARD LEWIS PATIENT Selected Encounter This section includes the information on record at [place] for the Encounter. Date/Time Encounter Type Encounter Description Reason Pro vider Source Jun 17, 2024 12:00 AM Outpatient Encounter EVENT (HISTORICAL) IHE Encounter Template Text not used by [place] Plan of Treatment: Future Appointments (+ 6 months) and Future Tests (+/- 45 days) The Plan of Treatment section includes future care activities for the [facility] [place] [facility]. This section includes future appointments and future [...] 2024 08:30 AM AMBULATORY - [facility] Oct 30, 2024 03:00 PM AMBULATORY - MEDICINE [facility] Nov 28, 2024 08:40 AM AMBULATORY - MEDICINE [facility] Active, Pending, and Scheduled Orders This section includes a listing of several types of active, pending, and scheduled orders, including clinic medications orders, diagnostic test orders, procedure orders and consult orders; where the start date of the order is 45 days before the date of the Encounter or 45 days after the date of theEncounter. The data comes from all [place] treatment facilities. Test Date/Time Test Type Test Details Facility Name Jul 11, 2024 04:25 PM Consult Order [facility] [id number] Cons [employer] Sales Representative's Choice [facility] Lab Results: +/- 30 days [...] Comment May 23, 2024 09:01 AM [facility] [place] [facility] URIC ACID Specimen Type: PLASMA No comment entered. Ordering Provider: DRE ALEX Report Released Date/Time: May 30, 2023 11:59 AM Reporting Lab: [place] [facility] [address] [place] [address] Performing Lab: [place] [facility] [address] [place] [address] URIC ACID 2.4 mg/dL L 3.5-7.2 May 23, 2024 09:01 AM [facility] [place] [place] [facility] B12 Specimen Type: SERUM No comment entered. Ordering Provider: DRE ALEX Report Released Date/Time: May 30, 2023 11:59 AM Reporting Lab: [place] [facility] [address] [place] [address] Performing Lab: [place] [facility] [address] [place] [address] B12 770 pg/mL 213-816 May 23, 2024 09:01 AM [facility] [place] [facility] FOLATE (PB) Specimen Type: SERUM No comment entered. Ordering Provider: DRE ALEX Report Released Date/Time: May 30, 2023 11:59 AM Reporting Lab: [place] [facility] [address] [place] [address] Performing Lab: [place] [facility] [address] [place] [address] FOLATE (PB) 17.3 ng/mL 7-20 May 23, 2024 09:01 AM [facility] [place] [facility] HGA1C Specimen Type: BLOOD No comment entered. Ordering Provider: DRE ALEX Report Released Date/Time: May 30, 2023 11:59 AM Reporting Lab: [place] [facility] [address] [place] [address] Performing Lab: [place] [facility] [address] [place] [address] HGA1C 5.7 4.0-6.0 May 23, 2024 09:01 AM [facility] CHOLESTEROL PANEL (PB) Specimen Type: PLASMA No comment entered. Ordering Provider: DRE ALEX Report Released Date/Time: May 30, 2023 11:59 AM Reporting Lab: [place] [facility] [address] [place] [address] Performing Lab: [place] [facility] [address] [place] [address] CHOLESTEROL 81 mg/dL 0-200 TRIGLYCERIDE 115 mg/dL 0-150 CALCULATED LDL 20.7 mg/dL HDL(New) 37.3 mg/dL L >40 HDL % OF TOTAL CHOLESTEROL (PB) 46.0 >25 May 23, 2024 09:01 AM [facility] VITAMIN D, 25-HYDROXY Specimen Type: SERUM No comment entered. Ordering Provider: DRE ALEX Report Released Date/Time: May 30, 2023 11:59 AM Reporting Lab: [place] [facility] [address] [place] [id number] Performing Lab: [place] [facility] [address] [place] [phone] VITAMIN D, 25-HYDROXY 75.0 ng/mL 30-96 May 23, 2024 09:01 AM [facility] URINE ALBUMIN PROFILE-ih (PB) Specimen Type: URINE No comment entered. Ordering Provider: DRE ALEX Report Released Date/Time: May 30, 2023 11:59 AM Reporting Lab: [place] [facility] [address] [place] [facility] Performing Lab: [place] [facility] [address] [place] [facility] URINE ALBUMIN (PB-STL) 131.70 mg/L H 0-30 uACR (PB-MA) 398.73 ug/mg CREATININE URINE/OTHERS 33.03 mg/dL May 23, 2024 09:01 AM [facility] TSH (MA-PB) Specimen Type: SERUM No comment entered. Ordering Provider: DRE ALEX Report Released Date/Time: May 30, 2023 11:59 AM Reporting Lab: [place] [facility] [address] [place] [address] Performing Lab: [place] [facility] [address] [place] [address] TSH 1.732 u[IU]/mL 0.47-5 May 23, 2024 09:01 AM [facility] COMPREHENSIVE METABOLIC PANEL Specimen Type: PLASMA No comment entered. Ordering Provider: DRE ALEX Report Released Date/Time: May 30, 2023 11:59 AM Reporting Lab: [place] [facility] [address] [place] [address] Performing Lab: [place] [facility] [address] [place] [address] CREATININE 4.38 mg/dL H 0.7-1.3 UREA NITROGEN [...] 2020) 13 May 23, 2024 09:01 AM [facility] Specimen Type: BLOOD No comment entered. Ordering Provider: DRE ALEX Report Released Date/Time: May 30, 2023 11:59 AM Reporting Lab: [place] [facility] [address] [place] [address] Performing Lab: [place] [facility] [address] [place] [address] WBC 6.8 10*3/uL 3.6-11.2 RBC 3.66 10*6/uL [...] 10*3/uL 0.00-0.05 May 23, 2024 09:01 AM [facility] FERRITIN Specimen Type: SERUM No comment entered. Ordering Provider: DRE ALEX Report Released Date/Time: Mar 12, 2024 04:29 PM Reporting Lab: [place] [facility] [address] [place] [address] Performing Lab: [place] [facility] [address] [place] [address] FERRITIN 2584 ng/mL H 22-275 May 23, 2024 09:01 AM [facility] IRON/TIBC PROFILE Specimen Type: PLASMA No comment entered. Ordering Provider: DRE ALEX Report Released Date/Time: Mar 12, 2024 04:29 PM Reporting Lab: [place] [facility] [address] [place] [address] Performing Lab: [place] [facility] [address] [place] [address] TIBC 220 mg/dL TRANSFERRIN 176 mg/dL 163-344 IRON SATURATION 30 20-50 IRON 67 ug/dL 65-175 Advance Directives: All historical and current Section [...] May 07, 2014 ADVANCE DIRECTIVE JUAN [facility]TT[facility] [place] [facility] Radiology Reports: +/- 30 days of [...] CT ABDOMEN PELVIS W/O CONTRAST-P: LEONARD LEWIS [facility] [id number] -1950 M Exm Date: JUN 11, 2024@08:34 Req Phys: DRE ALEX Loc: PB-JT PACT DELTA PCP (Req'g L Img Loc: PB-CT IMAGING Service: Unknown [facility] [place] [facility] [place] [address] (Case [id number] COMPLETE) CT ABDOMEN AND PELVIS W/O CONTRAS(CT Detailed) CPT:02803 Reason for Study: abdominla pain, fu from AAS Clinical History: Report Status: Verified Date Reported: JUN 11, 2024 Date Verified: JUN 11, 2024 Instructional Technology Coach E-Sig:/ES/MAIKOL HINKLE Report: Procedure: CT chest/abdomen/pelvis HISTORY: [...] process Primary Interpreting Staff: MAIKOL HINKLE, RADIOLOGIST (Instructional Technology Coach) /MAIKOL Hardwick [facility] Jun 11, 2024 08:[address] THORAX, DIAGNOS TIC W/O CONTRAST: LEONARD LEWIS [id number] -1950 M Exm Date: JUN 11, 2024@08:33 Req Phys: DRE ALEX Loc: PB-JT PACT DELTA PCP (Aleksandar'g Filippo Img Loc: PB-CT IMAGING Service: Unknown [facility] [place] [facility] [place] [address] (Case [id number] COMPLETE) CT THORAX, DIAGNOSTIC W/O CONTRAS(CT Detailed) CPT:16618 Reason for Study: fu on effusion Clinical History: can do at same time with ct abd pelvis, per Dr Khalil request Report Status: Verified Date Reported: JUN 11, 2024 Date Verified: JUN 11, 2024 Instructional Technology Coach E-Sig:/ES/MAIKOL HINKLE Report: Procedure: CT chest/abdomen/pelvis HISTORY: [...] process Primary Interpreting Staff: MAIKOL HINKLE, RADIOLOGIST (Instructional Technology Coach) /MAIKOL Hardwick [facility] Jun 11, 2024 08:08 AM CHEST X-RAY, 2 VIE WS: LEONARD LEWIS [id number] -1950 [facility] Date: JUN 11, 2024@08:08 Req Phys: DARRYL COBURN Loc: PB-CARLYN WALTON (Req'g Loc) [facility] Loc: PB-RADIOLOGY Service: Unknown [facility] [place] [facility] [place] [address] (Case [id number] COMPLETE) CHEST X-RAY, 2 VIEWS (RAD Detailed) CPT:38027 Reason for Study: follow-up on infiltrate Clinical History: follow-up on infiltrate Report Status: Verified Date Reported: JUN 11, 2024 Date Verified: JUN 11, 2024 Instructional Technology Coach E-Sig:/ES/RONI KHALIL Report: Chest 2 views. No recent studies [...] if clinically indicated Primary Interpreting Staff: RONI KHALIL, RADIOLOGIST (Instructional Technology Coach) /RONI Hi [place] [facility] May 30, 2024 10:23 AM OBSTRUCTIVE SERIES : LEONARD LEWIS [id number] -1950 M Exm Date: MAY 30, 2024@10:23 Req Phys: DRE ALEX Pat Loc: PB-JT PACT DELTA PCP (Req'g L Img Loc: PB-XRAY [place] Service: [place] [address] (Case [id number] COMPLETE) OBSTRUCTIVE SERIES (RAD Detailed) CPT:68840 Reason for Study: nausea vomiting Clinical History: x2 months, csardiac work up neg Report Status: Verified Date Reported: MAY 30, 2024 Date Verified: MAY 30, 2024 Instructional Technology Coach E-Sig: Report: Obstructive series Reveals emphysematous changes. [...] and GI consult Primary Interpreting Staff: RONI KHALIL, RADIOLOGIST (Instructional Technology Coach, no e-sig) /RONI Hi [facility] Encounter Notes: All associated encounter notes This section contains the clinical notes associated to the Encounter. Date/Time Encounter Note(s) Provider Source Jun 17, 2024 12:00 AM NONVA CONSULT: LOCAL TITLE: [facility]-CONSULT RESULT NOTE PB STANDARD TITLE: NONVA CONSULT DATE OF NOTE: JUN 17, 2024 ENTRY DATE: AUG 08, 2024@00:31:45 AUTHOR: SHIRLEY OWEN EXP COSIGNER: URGENCY: STATUS: COMPLETED VistA Imaging - Scanned Document [id number] [facility] DERMATOLOGY VISIT SCANNED DOCUMENT SIGNATURE NOT REQUIRED Electronically Filed: 08/08/2024 by: SHIRLEY MONTOYA [facility]
--- OUTSIDE RECORDS SUMMARY | 2024-09-07 10:58 | XMS_ITS | Encounter Summary ---
Author Name [facility] [place] Address [address] [place] [address] Care Team Providers Care Track Template Maker Name Role Phone DRE ALEX Primary [...] PART A Mar 04, 2012 PART A [id number] LEONARD LEWIS PATIENT MEDICARE (WNR) MEDICARE (M) PART B Mar 04, 2012 PART B [id number] [phone] LEONARD LEWIS PATIENT MEDICARE (WNR) MEDICARE (M) PART A Mar 04, 2012 PART A [id number] LEONARD LEWIS PATIENT MEDICARE (WNR) MEDICARE (M) PART B Mar 04, 2012 PART B [id number] LEONARD LEWIS PATIENT MEDICARE (WNR) MEDICARE (M) PART B Mar 04, 2012 PART B [id number] LEONARD LEWIS PATIENT MEDICARE (WNR) MEDICARE (M) PART A Mar 04, 2012 PART A [id number] LEONARD LEWIS PATIENT -FO R-LIFE [facility] RE [facility] WNR Aug 31, 2016 [facility] [id number] [phone] LEONARD LEWIS PATIENT -FO R-LIFE [facility] RE [facility] WNR Aug 31, 2016 [facility] LIFE [id number] [phone] LEONARD LEWIS PATIENT Selected Encounter This section includes the information on record at [place] for the Encounter. Date/Time Encounter Type Encounter Description Reason Pro vider Source Oct 18, 2023 12:00 AM Outpatient Encounter EVENT (HISTORICAL) [...] PM AMBULATORY - NONE [place] [facility] Dec 12, 2023 09:40 AM AM[place]ULATORY - [place]IC[place] [facility] Dec 26, 2023 01:15 PM AMBULATORY - MEDICINE [facility] Dec 26, 2023 01:16 PM AMBULATORY - MEDICINE [facility] January 27, 2024 10:30 AM [facility]ORY - MEDIC[place] [facility] January 30, 2024 12:00 PM AMBULATORY - NONE [place] [facility] January 30, 2024 02:30 PM AMBULATORY - MEDICINE [place] [facility] Mar 05, 2024 12:00 PM AMBULATORY - MEDICINE [place] [facility] Mar 12, 2024 03:30 PM AMBULATORY - MEDICINE [facility] Mar 12, 2024 03:31 PM AMBULATORY - MEDICINE [facility] Mar 14, 2024 08:30 AM AM[place]ULATORY - MEDICINE [place] [facility] Apr 09, 2024 12:00 PM AMBULATORY - MEDICINE [facility] Advance Directives: All historical and current Section [...] 2014 ADVANCE DIRECTIVE JUAN GILLETTE [facility] [facility] [facility] Radiology Reports: +/- 30 days of [...] PM LDCT LUNG CANCER SCREENING: LEONARD LEWIS [id number] -1950 M Exm Date: OCT 31, 2023@12:18 Req Phys: BRIAN NEWMAN Pat Loc: PB-PHONE LUNG SCREEN (Req'g Lo Img Loc: PB-CT IMAGING Service: Unknown (Case [id number] COMPLETE) LDCT LUNG CANCER SCREENING (CT Detailed) CPT:96371 Reason for Study: no lung nodules- [facility] ldct Clinical History: negative ct thorax 10/27. annual ldct Report Status: Verified Date Reported: NOV 01, 2023 Date Verified: NOV 01, 2023 Wind Project Manager E-Sig: Report: EXAM: LDCT LUNG CANCER SCREENING [...] MODIFIER: N/A. READING PHYSICIAN: Guy Kovacs MD -[id number] 11/01/2023 13:20 SECURITY PATROL OFFICER [place] [employer] Program [phone] (For Medical Practitioner Use Only) Attention Patients / Veterans: If you have questions or concerns about these test results, please contact your ordering provider or primary care team. Primary Interpreting Staff: RADIOLOGY,OUTSIDE SERVICE, Staff Physician / RADIOLOGY,OUTSIDE SERVICE RICARDO MARQUEZ [facility] Encounter Notes: All associated encounter notes This section contains the clinical notes associated to the Encounter. Date/Time Encounter Note(s) Provider Source Oct 18, 2023 12:00 AM NONVA CONSULT: LOCAL TITLE: COMM[facility]ITY [facility]-CONSULT RESULT NOTE PB STANDARD TITLE: NONVA CONSULT DATE OF NOTE: OCT 18, 2023 ENTRY DATE: JUL 29, 2024@09:51:10 AUTHOR: MELVIN ENRIQUEZ EXP COSIGNER: URGENCY: STATUS: COMPLETED VistA Imaging - Scanned Document Piping Supervisor, [id number], Sangeeta Miller, SCANNED DOCUMENT SIGNATURE NOT REQUIRED Electronically Filed: 07/29/2024 by: MELVIN NEWTON [facility] MELVIN ENRIQUEZ [facility]
--- OUTSIDE RECORDS SUMMARY | 2024-09-07 10:59 | XMS_ITS | Clinical Summary ---
Author Name Unknown Organization Unknown Care Team Providers Care Office Support Clerk Name Role Phone ABI WALTON, DRE Unavailable Unavailable GERRI PT, CJ Unavailable Unavailable JAHAIRA OT, ANN Unavailable Unavailable CLAUDIA RN, ANDRES Unavailable Unavailable JOHN TONG, LUZ MARIA Unavailable Unavailable YAMILET GARCIA Unavailable Unavailab le Payers Payer Name Policy Type Policy Number Effective Date Expira tion Date [facility] OPTUM PROGRAM-PD [id number] MEDICARE - CGS - PD [id number] Problems Condition Name Condition Details Condition Category Status Onset Date Resolution Date Last Treatment Date Treating Clinician Comments ACUTE CYSTITIS WITHOUT HEMATURIA Active 04-24 00:00: 00 ENCNTR FOR SURGICAL AFTCR FOLLOWING SURGERY ON THE RESP SYS Active 09-04 00:00: 00 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 Active 09-04 00:00: 00 CHRONIC COMBINED SYSTOLIC AND DIASTOLIC HRT FAIL Active 09-04 00:00: 00 TYPE 2 DIABETES MELLITUS W DIABETIC CHRONIC KIDNEY DISEASE Active 09-04 00:00: 00 END STAGE RENAL DISEASE Active 09-04 00:00: 00 ATHSCL HEART DISEASE OF [place] CORONARY ARTERY W/O ANG PCTRS Active 09-04 00:00: 00 MIXED HYPERLIPIDEM IA Active - 00:00: 00 TYPE 2 DIABETES W DIABETIC PERIPHERAL ANGIOPATH W/O GANGRENE Active - 00:00: 00 OBSTRUCTIVE SLEEP APNEA (ADULT) (PEDIATRIC) Active 09-04 00:00: 00 COVID-19 Active 09-04 00:00: 00 PNEUMONIA DUE TO CORONAVIRUS DISEASE 2019 Active 09-04 00:00: 00 OTHER CHRONIC PANCREATITIS Active 09-04 00:00: 00 CHR OBSTRUCTIVE PULMON DISEASE WITH (ACUTE) LOWER RESP INFCT Active 09-04 00:00: 00 UNSPECIFIED MOOD [AFFECTIVE] DISORDER Active 09-04 00:00: 00 BENIGN PROSTATIC HYPERPLASIA WITHOUT LOWER URINRY TRACT SYMP Active 09-04 00:00: 00 ANXIETY DISORDER, UNSPECIFIED Active 09-04 00:00: 00 GOUT, UNSPECIFIED Active 09-04 00:00: 00 TYPE 2 DIABETES MELLITUS WITH DIABETIC NEUROPATHY, UNSP Active 09-04 00:00: 00 PRSNL HX OF TIA (TIA), AND CEREB INFRC W/O RESID DEFICITS Active 09-04 00:00: 00 PERSONAL HISTORY OF MALIGNANT NEOPLASM OF BLADDER Active 09-04 00:00: 00 HISTORY OF FALLING Active 09-04 00:00: 00 PRESENCE OF AORTOCORONAR Y BYPASS GRAFT Active 09-04 00:00: 00 PERSONAL HISTORY OF URINARY CALCULI Active 09-04 00:00: 00 PERSONAL HISTORY OF MALIGNANT CARCINOID TUMOR OF KIDNEY Active 09-04 00:00: 00 DEPENDENCE ON RENAL DIALYSIS Active 09-04 00:00: 00 [facility] (CURRENT) USE OF ASPIRIN Active 09-04 00:00: 00 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 Ordering Clinician Indication Dosage Frequency Signature (SIG) Comments Components allopurinol 100 mg tablet 04-24 00:00: 00 Yes [id number] 2 tablet DAILY 2 tablet DAILY (route: oral) Med Classific ation: Gout and Hyperuric emia Therapy ascorbic acid (vitamin C) 500 mg tablet 04-24 00:00: 00 Yes [id number] 2 tablet DAILY 2 tablet DAILY (route: oral) Med Classific ation: Electroly te Balance-N utritiona l Products Aspirin Childrens 81 mg chewable tablet 04-24 00:00: 00 Yes [id number] 1 tablet DAILY 1 tablet DAILY (route: oral) Med Classific ation: Hematolog ical Agents bupropion HCl SR 150 mg tablet,12 hr sustained-r elease 04-24 00:00: 00 Yes [id number] 1 tablet DAILY 1 tablet DAILY (route: oral) Med Classific ation: Central Nervous System Agents carvedilol 12.5 mg tablet 04-24 00:00: 00 Yes [id number] 1 tablet 2 TIMES DAILY 1 tablet 2 TIMES DAILY (route: oral) Med Classific ation: Cardiovas cular Therapy Agents citalopram 40 mg tablet 04-24 00:00: 00 Yes [id number] 0.5 tablet DAILY 0.5 tablet DAILY (route: oral) Med Classific ation: Central Nervous System Agents clopidogrel 75 mg tablet 04-24 00:00: 00 Yes [id number] 1 tablet NOON 1 tablet NOON (route: oral) Med Classific ation: Hematolog ical Agents colchicine 0.6 mg tablet 04-24 00:00: 00 Yes [id number] 0.5 tablet 2 TIMES A WEEK 0.5 tablet 2 TIMES A WEEK (route: oral) Med Classific ation: Gout and Hyperuric emia Therapy Creon 12,000-38,0 00-60,000 unit capsule,del ayed release 04-24 00:00: 00 Yes [id number] 3 capsule 3 TIMES DAILY 3 capsule 3 TIMES DAILY (route: oral) Med Classific ation: Gastroint estinal Therapy Agents Fish Oil 1,000 mg (120 mg-180 mg) capsule 04-24 00:00: 00 Yes [id number] 1 capsule 2 TIMES DAILY 1 capsule 2 TIMES DAILY (route: oral) Med Classific ation: Cardiovas cular Therapy Agents Lantus Solostar U-100 Insulin 100 unit/mL (3 mL) subcutaneou s pen 04-24 00:00: 00 Yes [id number] 16 unit BEDTIME 16 unit BEDTIME (route: subcutaneo us) Med Classific ation: Endocrine midodrine 5 mg tablet 04-24 00:00: 00 Yes [id number] 1 tablet 3 TIMES DAILY 1 tablet 3 TIMES DAILY (route: oral) Med Classific ation: Cardiovas cular Therapy Agents omeprazole 20 mg capsule,del ayed release 04-24 00:00: 00 Yes [id number] 1 capsule DAILY 1 capsule DAILY (route: oral) Med Classific ation: Gastroint estinal Therapy Agents RENAL MULTIVITAMI N 1MG TABLET 04-24 00:00: 00 Yes [id number] 1 tablet DAILY 1 tablet DAILY (route: BY MOUTH) Med Classific ation: MISCELLAN EOUS HERBS AND SUPPLEMEN TS sevelamer HCl 800 mg tablet 04-24 00:00: 00 Yes [id number] 3 tablet 3 TIMES DAILY 3 tablet 3 TIMES DAILY (route: oral) Med Classific ation: Genitouri nary Therapy simvastatin 80 mg tablet 04-24 00:00: 00 Yes [id number] 0.5 tablet EVERY PM 0.5 tablet EVERY PM (route: oral) Med Classific ation: Cardiovas cular Therapy Agents sodium bicarbonate 650 mg tablet 04-24 00:00: 00 Yes [id number] 1 tablet 3 TIMES DAILY 1 tablet 3 TIMES DAILY (route: oral) Med Classific ation: Gastroint estinal Therapy Agents tamsulosin 0.4 mg capsule 04-24 00:00: 00 Yes [id number] 2 capsule EVERY PM 2 capsule EVERY PM (route: oral) Med Classific ation: Genitouri nary Therapy Vitamin D3 50 mcg (2,000 unit) capsule 04-24 00:00: 00 Yes [id number] 1 capsule DAILY 1 capsule DAILY (route: oral) Med Classific ation: Electroly te Balance-N utritiona l Products Unasyn 1.5 gram solution for injection 04-24 00:00: 00 05-02 23:59 :00 No [id number] 1.5 g EVERY 12 HOURS 1.5 g EVERY 12 HOURS (route: injection) Med Classific ation: Anti-Infe ctive Agents Heparin Lock Flush (Porcine) (PF) 100 unit/mL intravenous syringe 04-25 00:00: 00 05-02 23:59 :00 No [id number] 5 mL EVERY 12 HOURS 5 mL EVERY 12 HOURS (route: intravenou s) Med Classific ation: Hematolog ical Agents Normal Saline Flush 0.9 % injection syringe 04-25 00:00: 00 05-02 23:59 :00 No [id number] 10 mL EVERY 12 HOURS 10 mL EVERY 12 HOURS (route: injection) Med Classific ation: Electroly te Balance-N utritiona l Products Vital Signs Vital Name Observation Time Observation Value Commen ts Temperature 2023-05-17 12:45:00.000 97.4 [degF] Temperature 2023-05-16 11:00:00.000 98.2 [degF] Temperature 2023-05-12 13:01:00.000 97.8 [degF] Temperature 2023-05-11 09:44:00.000 98.2 [degF] Temperature 2023-05-09 10:11:00.000 98.2 [degF] Temperature 2023-05-05 16:00:00.000 96.7 [degF] Temperature 2023-05-04 11:19:00.000 98.6 [degF] Temperature 2023-05-03 11:15:00.000 97.7 [degF] Temperature 2023-05-02 14:38:00.000 98.2 [degF] Temperature 2023-05-02 11:55:00.000 98.2 [degF] Temperature 2023-04-28 11:57:00.000 97.6 [degF] Temperature 2023-04-27 12:55:00.000 98.2 [degF] Temperature 2023-04-27 08:45:00.000 98 [degF] Temperature 2023-04-25 12:29:00.000 97.2 [degF] Temperature 2023-04-24 13:54:00.000 98.2 [degF] BMI (%) 2023-04-24 13:54:00.000 27 kg/m2 Height 2023-04-24 13:54:00.000 67 [in_us] Pulse 2023-05-17 12:45:00.000 61 /min Pulse 2023-05-16 11:00:00.000 67 /min Pulse 2023-05-12 13:01:00.000 79 /min Pulse 2023-05-11 09:44:00.000 69 /min Pulse 2023-05-09 10:11:00.000 69 /min Pulse 2023-05-05 16:00:00.000 68 /min Pulse 2023-05-04 11:19:00.000 72 /min Pulse 2023-05-03 11:15:00.000 67 /min Pulse 2023-05-02 14:38:00.000 76 /min Pulse 2023-05-02 11:55:00.000 64 /min Pulse 2023-04-28 11:57:00.000 72 /min Pulse 2023-04-27 12:55:00.000 68 /min Pulse 2023-04-27 08:45:00.000 70 /min Pulse 2023-04-25 12:29:00.000 64 /min Pulse 2023-04-24 13:54:00.000 78 /min O2 Saturation (%) 2023-05-17 12:45:00.000 96 % O2 Saturation (%) 2023-05-12 13:01:00.000 98 % O2 Saturation (%) 2023-05-11 09:44:00.000 96 % O2 Saturation (%) 2023-05-09 10:11:00.000 96 % O2 Saturation (%) 2023-05-04 11:22:00.000 95 % O2 Saturation (%) 2023-05-02 14:39:00.000 96 % O2 Saturation (%) 2023-05-02 11:55:00.000 96 % O2 Saturation (%) 2023-04-27 12:55:00.000 96 % O2 Saturation (%) 2023-04-27 08:45:00.000 96 % O2 Saturation (%) 2023-04-25 12:38:00.000 94 % Pain 2023-05-17 12:45:00.000 0 Pain 2023-05-16 11:00:00.000 0 Pain 2023-05-12 13:01:00.000 0 Pain 2023-05-11 09:44:00.000 0 Pain 2023-05-09 10:11:00.000 0 Pain 2023-05-05 16:00:00.000 0 Pain 2023-05-04 11:19:00.000 0 Pain 2023-05-03 11:15:00.000 2 Pain 2023-05-02 14:38:00.000 0 Pain 2023-05-02 11:55:00.000 0 Pain 2023-04-28 11:57:00.000 0 Pain 2023-04-27 12:55:00.000 0 Pain 2023-04-27 08:45:00.000 0 Pain 2023-04-24 13:54:00.000 0 Respirations 2023-05-17 12:45:00.000 18 /min Respirations 2023-05-16 11:00:00.000 18 /min Respirations 2023-05-12 13:01:00.000 16 /min Respirations 2023-05-11 09:44:00.000 18 /min Respirations 2023-05-09 10:11:00.000 18 /min Respirations 2023-05-05 16:00:00.000 18 /min Respirations 2023-05-04 11:19:00.000 18 /min Respirations 2023-05-03 11:15:00.000 18 /min Respirations 2023-05-02 14:38:00.000 18 /min Respirations 2023-05-02 11:55:00.000 18 /min Respirations 2023-04-28 11:57:00.000 16 /min Respirations 2023-04-27 12:55:00.000 18 /min Respirations 2023-04-27 08:45:00.000 18 /min Respirations 2023-04-25 12:29:00.000 18 /min Respirations 2023-04-24 13:54:00.000 16 /min Weight (lbs) 2023-05-02 11:59:00.000 176 [lb_av] Weight (lbs) 2023-04-24 13:54:00.000 178 [lb_av] Weight (kgs) 2023-04-28 11:59:00.000 80.1 Systolic Blood Pressure 2023-05-17 12:45:00.000 153 mm [Hg] Systolic Blood Pressure 2023-05-16 11:00:00.000 142 mm [Hg] Systolic Blood Pressure 2023-05-12 13:01:00.000 120 mm [Hg] Systolic Blood Pressure 2023-05-11 09:44:00.000 124 mm [Hg] Systolic Blood Pressure 2023-05-09 10:11:00.000 142 mm [Hg] Systolic Blood Pressure 2023-05-05 16:00:00.000 165 mm [Hg] Systolic Blood Pressure 2023-05-04 11:19:00.000 139 mm [Hg] Systolic Blood Pressure 2023-05-03 11:15:00.000 168 mm [Hg] Systolic Blood Pressure 2023-05-02 14:38:00.000 120 mm [Hg] Systolic Blood Pressure 2023-05-02 11:55:00.000 150 mm [Hg] Systolic Blood Pressure 2023-04-28 11:57:00.000 114 mm [Hg] Systolic Blood Pressure 2023-04-27 12:55:00.000 141 mm [Hg] Systolic Blood Pressure 2023-04-27 08:45:00.000 91 mm[ Hg] Systolic Blood Pressure 2023-04-25 12:39:00.000 134 mm [Hg] Systolic Blood Pressure 2023-04-24 13:54:00.000 99 mm[ Hg] Diastolic Blood Pressure 2023-05-17 12:45:00.000 69 mm [Hg] Diastolic Blood Pressure 2023-05-16 11:00:00.000 63 mm [Hg] Diastolic Blood Pressure 2023-05-12 13:01:00.000 60 mm [Hg] Diastolic Blood Pressure 2023-05-11 09:44:00.000 62 mm [Hg] Diastolic Blood Pressure 2023-05-09 10:11:00.000 62 mm [Hg] Diastolic Blood Pressure 2023-05-05 16:00:00.000 91 mm [Hg] Diastolic Blood Pressure 2023-05-04 11:19:00.000 64 mm [Hg] Diastolic Blood Pressure 2023-05-03 11:15:00.000 74 mm [Hg] Diastolic Blood Pressure 2023-05-02 14:38:00.000 64 mm [Hg] Diastolic Blood Pressure 2023-05-02 11:55:00.000 63 mm [Hg] Diastolic Blood Pressure 2023-04-28 11:57:00.000 59 mm [Hg] Diastolic Blood Pressure 2023-04-27 12:55:00.000 64 mm [Hg] Diastolic Blood Pressure 2023-04-27 08:45:00.000 70 mm [Hg] Diastolic Blood Pressure 2023-04-25 12:39:00.000 64 mm [Hg] Diastolic Blood Pressure 2023-04-24 13:54:00.000 44 mm [Hg] Plan of Treatment Planned Activity Planned Date Details Comments Future Scheduled Test SKILLED NU RSE TO EVALUATE PATIENT, IDENTIFY PRIMARY AND CO-MORBID CONDITIONS CODED PER CODING GUIDELINES, AND DEVELOP PATIENT SPECIFIC PLAN OF CARE THAT INCLUDES PATIENT GOAL FOR HOME HEALTH. [code = SKILLED NURSE TO EVALUATE PATIENT, IDENTIFY PRIMARY AND CO-MORBID CONDITIONS CODED PER CODING GUIDELINES, AND DEVELOP PATIENT SPECIFIC PLAN OF CARE THAT INCLUDES PATIENT GOAL FOR HOME HEALTH.] Future Scheduled Test [facility] MAY ACCEPT ORDERS FROM THE FOLLOWING PHYSICIANS: ALL PHYSICIANS INVOLVED IN CARE [code = HOME HEALTH AGENCY MAY ACCEPT ORDERS FROM THE FOLLOWING PHYSICIANS: ALL PHYSICIANS INVOLVED IN CARE ] Future Scheduled Test SKILLED NU RSE TO REVIEW PATIENT MEDICATIONS. INSTRUCT PATIENT/CAREGIVER ON MONITORING OF EFFECTIVENESS, ADVERSE DRUG REACTIONS, SIDE EFFECTS OF ALL MEDICATIONS (PRESCRIPTION/-OTC), AND HOW AND WHEN TO REPORT PROBLEMS. [code = SKILLED NURSE TO REVIEW PATIENT MEDICATIONS. INSTRUCT PATIENT/CAREGIVER ON MONITORING OF EFFECTIVENESS, ADVERSE DRUG REACTIONS, SIDE EFFECTS OF ALL MEDICATIONS (PRESCRIPTION/-OTC), AND HOW AND WHEN TO REPORT PROBLEMS.] Future Scheduled Test SKILLED NU RSE TO ASSESS ANXIETY AND PROVIDE ASSISTANCE TO PATIENT FOR UNDERSTANDING AND MANAGEMENT OF FEELINGS. [code = SKILLED NURSE TO ASSESS ANXIETY AND PROVIDE ASSISTANCE TO PATIENT FOR UNDERSTANDING AND MANAGEMENT OF FEELINGS.] Future Scheduled Test SKILLED NU RSE FOR O/A, TEACHING AND MANAGEMENT OF CYSTITIS, UNSPECIFIED WITHOUT HEMATURIA EARLY IDENTIFICATION OF EXACERBATION OF DISEASE PROCESS [code = SKILLED NURSE FOR O/A, TEACHING AND MANAGEMENT OF CYSTITIS, UNSPECIFIED WITHOUT HEMATURIA EARLY IDENTIFICATION OF EXACERBATION OF DISEASE PROCESS] Future Scheduled Test SKILLED NU RSE TO PERFORM AND RECORD BLOOD SUGAR READING PRN FOR SIGNS AND SYMPTOMS OF HYPO/HYPERGLYCEMIA. [code = SKILLED NURSE TO PERFORM AND RECORD BLOOD SUGAR READING PRN FOR SIGNS AND SYMPTOMS OF HYPO/HYPERGLYCEMIA.] Future Scheduled Test SKILLED NU RSE FOR O/A AND TEACHING OF ENDOCRINE SYSTEM TO IDENTIFY CHANGES ASSOCIATED WITH EXACERBATION OF DM FOR EARLY INTERVENTION OF COMPLICATIONS. [code = SKILLED NURSE FOR O/A AND TEACHING OF ENDOCRINE SYSTEM TO IDENTIFY CHANGES ASSOCIATED WITH EXACERBATION OF DM FOR EARLY INTERVENTION OF COMPLICATIONS.] Future Scheduled Test SKILLED NU RSE TO PROVIDE TEACHING ON SIGNS AND SYMPTOMS AND MANAGEMENT OF HYPERTENSION. [code = SKILLED NURSE TO PROVIDE TEACHING ON SIGNS AND SYMPTOMS AND MANAGEMENT OF HYPERTENSION.] Future Scheduled Test SKILLED NU RSE TO INSTRUCT PATIENT/CAREGIVER ON COPD TO INCLUDE USE OF [facility] SAULT PULMONARY SPECIALTY PROGRAM FOR TEACHING AND SELF-MANAGEMENT RELATED TO COPD DISEASE PROCESS, SIGNS AND SYMPTOMS, AND COMPLICATIONS. [code = SKILLED NURSE TO INSTRUCT PATIENT/CAREGIVER ON COPD TO INCLUDE USE OF [facility] PULMON[facility] SPECIALTY PROGRAM FOR TEACHING AND SELF-MANAGEMENT RELATED TO COPD DISEASE PROCESS, SIGNS AND SYMPTOMS, AND COMPLICATIONS.] Future Scheduled Test SKILLED NU RSE FOR O/A AND TEACHING OF DIABETIC MANAGEMENT INCLUDING PARTICIPATION IN [facility] SPECIALTY PROGRAM, BLOOD SUGAR MONITORING/USE OF GLUCOMETER, DIABETIC DIET, LOWER EXTREMITY SKIN INSPECTION, PROPER SKIN/FOOT CARE, AND SIGNS AND SYMPTOMS HYPO/HYPERGLYCEMIA TO REPORT. [code = SKILLED NURSE FOR O/A AND TEACHING OF DIABETIC MANAGEMENT INCLUDING PARTICIPATION IN [facility] SPECIALTY PROGRAM, BLOOD SUGAR MONITORING/USE OF GLUCOMETER, DIABETIC DIET, LOWER EXTREMITY SKIN INSPECTION, PROPER SKIN/FOOT CARE, AND SIGNS AND SYMPTOMS HYPO/HYPERGLYCEMIA TO REPORT.] Future Scheduled Test SKILLED NU RSE FOR O/A AND TEACHING ON IV SITE CARE, INFUSION PROCEDURE, SIGNS AND SYMPTOMS OF INFECTION/COMPLICATIONS. SKILLED NURSE TO OBTAIN IV ACCESS TO CENTRAL LINE VIA MIDLINE TO RIGHT UPPER ARM. SKILLED NURSE OR TRAINED PATIENT/CAREGIVER TO ADMINISTER IV THERAPY OF UNASYN 1.5GM, 14 DAYS ENDING ON 05/02/23 EVERY 12HOURS VIA PUMP. SN TO TEACH PATIENT/CAREGIVER MEDIATION ADMINISTRATION [facility] 10 ML NS BEFORE IV INFUSION AND 10 ML AFTER IV INFUSION FOLLOWED BY 5 ML HEPARIN CONCENTRATION OF 100 UNITS/ML. SKILLED NURSE TO CHANGE DRESSING WEEKLY AND PRN FOR COMPLICATIONS. REMOVE DRESSING, USING STERILE TECHNIQUE CLEAN SITE WITH CHLORAPREP APPLICATOR, MAY USE CATHETER STABILIZATION DEVICE, COVER WITH TRANSPARENT DRESSING. CHANGE IV CAPS EVERY 5-7 DAYS AND AFTER EVERY BLOOD DRAW [code = SKILLED NURSE FOR O/A AND TEACHING ON IV SITE CARE, INFUSION PROCEDURE, SIGNS AND SYMPTOMS OF INFECTION/COMPLICATIONS. SKILLED NURSE TO OBTAIN IV ACCESS TO CENTRAL LINE VIA MIDLINE TO RIGHT UPPER ARM. SKILLED NURSE OR TRAINED PATIENT/CAREGIVER TO ADMINISTER IV THERAPY OF UNASYN 1.5GM, 14 DAYS ENDING ON 05/02/23 EVERY 12HOURS VIA PUMP. SN TO TEACH PATIENT/CAREGIVER MEDIATION ADMINISTRATION USING [facility] TECHNIQUE OF 10 ML NS BEFORE IV INFUSION AND 10 ML AFTER IV INFUSION FOLLOWED BY 5 ML HEPARIN CONCENTRATION OF 100 UNITS/ML. SKILLED NURSE TO CHANGE DRESSING WEEKLY AND PRN FOR COMPLICATIONS. REMOVE DRESSING, USING STERILE TECHNIQUE CLEAN SITE WITH CHLORAPREP APPLICATOR, MAY USE CATHETER STABILIZATION DEVICE, COVER WITH TRANSPARENT DRESSING. CHANGE IV CAPS EVERY 5-7 DAYS AND AFTER EVERY BLOOD DRAW] Future Scheduled Test SKILLED NU RSE TO OBTAIN BLOOD SPECIMEN VIA MIDLINE FOR LABS ORDERED CBC WEEKLY, OBTAIN LAB RESULTS AND REPORT TO PHYSICIAN. [code = SKILLED NURSE TO OBTAIN BLOOD SPECIMEN VIA MIDLINE FOR LABS ORDERED CBC WEEKLY, OBTAIN LAB RESULTS AND REPORT TO PHYSICIAN.] Future Scheduled Test VIRTUAL SIT FREQUENCY: 1-6 PER WEEK X 3 WEEKS AND 6 PRN VIRTUAL VISITS MAY BE PERFORMED UTILIZING TELECOMMUNICATIONS SYSTEM TO OPTIMIZE SKILLED SERVICES FURNISHED ON THE PLAN OF CARE. SKILLED NURSE TO ESTABLISH SUPPORT MEASURES TO MINIMIZE RISK OF REHOSPITALIZATION, AND INSTRUCT PATIENT/CAREGIVER ON METHODS TO REDUCE AVOIDABLE HOSPITALIZATION. [code = VIRTUAL VISIT FREQUENCY: 1-6 PER WEEK X 3 WEEKS AND 6 PRN VIRTUAL VISITS MAY BE PERFORMED UTILIZING TELECOMMUNICATIONS SYSTEM TO OPTIMIZE SKILLED SERVICES FURNISHED ON THE PLAN OF CARE. SKILLED NURSE TO ESTABLISH SUPPORT MEASURES TO MINIMIZE RISK OF REHOSPITALIZATION, AND INSTRUCT PATIENT/CAREGIVER ON METHODS TO REDUCE AVOIDABLE HOSPITALIZATION.] Future Scheduled Test PATIENT BARBOSA S A RISK OF HOSPITALIZATION AND ED USE. SKILLED NURSE TO ESTABLISH SUPPORT MEASURES TO MINIMIZE RISK OF HOSPITALIZATION AND ED USE, AND INSTRUCT PATIENT/CAREGIVER ON METHODS TO REDUCE AVOIDABLE HOSPITALIZATION AND ED USE. [code = PATIENT HAS A RISK OF HOSPITALIZATION AND ED USE. SKILLED NURSE TO ESTABLISH SUPPORT MEASURES TO MINIMIZE RISK OF HOSPITALIZATION AND ED USE, AND INSTRUCT PATIENT/CAREGIVER ON METHODS TO REDUCE AVOIDABLE HOSPITALIZATION AND ED USE.] Future Scheduled Test SKILLED NU RSE TO PROVIDE INSTRUCTION TO PATIENT/CAREGIVER RELATED TO DISCHARGE PLANNING. [code = SKILLED NURSE TO PROVIDE INSTRUCTION TO PATIENT/CAREGIVER RELATED TO DISCHARGE PLANNING.] Future Scheduled Test SKILLED NU RSE TO PERFORM HOME SAFETY AND FALL ASSESSMENT AND PROVIDE INSTRUCTION TO IMPLEMENT HOME SAFETY AND FALL PREVENTION STRATEGIES. [code = SKILLED NURSE TO PERFORM HOME SAFETY AND FALL ASSESSMENT AND PROVIDE INSTRUCTION TO IMPLEMENT HOME SAFETY AND FALL PREVENTION STRATEGIES.] Future Scheduled Test SKILLED NU RSE FOR OBSERVATION AND ASSESSMENT OF PATIENTS PAIN LEVEL AND EFFECTIVENESS OF PAIN MANAGEMENT REGIMEN. SKILLED NURSE TO INSTRUCT PATIENT/CAREGIVER REGARDING PHARMACOLOGIC AND NON-PHARMACOLOGIC PAIN CONTROL MEASURES. SKILLED NURSE TO REPORT TO PHYSICIAN IF PAIN IS UNCONTROLLED WITH CURRENT PAIN MANAGEMENT REGIMEN. [code = SKILLED NURSE FOR OBSERVATION AND ASSESSMENT OF PATIENTS PAIN LEVEL AND EFFECTIVENESS OF PAIN MANAGEMENT REGIMEN. SKILLED NURSE TO INSTRUCT PATIENT/CAREGIVER REGARDING PHARMACOLOGIC AND NON-PHARMACOLOGIC PAIN CONTROL MEASURES. SKILLED NURSE TO REPORT TO PHYSICIAN IF PAIN IS UNCONTROLLED WITH CURRENT PAIN MANAGEMENT REGIMEN.] Future Scheduled Test SKILLED NU RSE TO PROVIDE ASSESSMENT AND TEACHING/REINFORCEMENT OF MANAGEMENT OF DEPRESSION INCLUDING DISEASE PROCESS, MEDICATION MANAGEMENT, COPING SKILLS AND IDENTIFY CHANGES ASSOCIATED WITH DEPRESSIVE DISORDERS FOR EARLY INTERVENTION. [code = SKILLED NURSE TO PROVIDE ASSESSMENT AND TEACHING/REINFORCEMENT OF MANAGEMENT OF DEPRESSION INCLUDING DISEASE PROCESS, MEDICATION MANAGEMENT, COPING SKILLS AND IDENTIFY CHANGES ASSOCIATED WITH DEPRESSIVE DISORDERS FOR EARLY INTERVENTION. ] Future Scheduled Test PHYSICAL T HERAPIST TO EVALUATE PATIENT SECONDARY TO FUNCTIONAL DEFICITS/SAFETY CONCERNS. PHYSICAL THERAPY TO ESTABLISH /UPGRADE/DOWNGRADE THERAPEUTIC EXERCISE PROGRAM AND INSTRUCT PATIENT/CAREGIVER ON EXERCISE PRECAUTIONS WITH WRITTEN HOME PROGRAM. MAY INCLUDE :AAROM, AROM, RROM APPROPRIATE TO IMPROVE FUNCTIONAL STRENGTH AND RANGE OF MOTION. PHYSICAL THERAPY TO INSTRUCT PATIENT/CAREGIVER ON GAIT TRAINING TECHNIQUES USING APPROPRIATE ASSISTIVE DEVICE, PROPER BODY MECHANICS TO IMPROVE MOBILITY, AND PREVENT INJURY OF PATIENT AND/OR CAREGIVER. PHYSICAL THERAPY TO ASSESS AND RECOMMEND HOME SAFETY ADAPTATIONS AND EDUCATE PATIENT /CAREGIVER ON FALL PREVENTION STRATEGIES. [code = PHYSICAL THERAPIST TO EVALUATE PATIENT SECONDARY TO FUNCTIONAL DEFICITS/SAFETY CONCERNS. PHYSICAL THERAPY TO ESTABLISH /UPGRADE/DOWNGRADE THERAPEUTIC EXERCISE PROGRAM AND INSTRUCT PATIENT/CAREGIVER ON EXERCISE PRECAUTIONS WITH WRITTEN HOME PROGRAM. MAY INCLUDE :AAROM, AROM, RROM APPROPRIATE TO IMPROVE FUNCTIONAL STRENGTH AND RANGE OF MOTION. PHYSICAL THERAPY TO INSTRUCT PATIENT/CAREGIVER ON GAIT TRAINING TECHNIQUES USING APPROPRIATE ASSISTIVE DEVICE, PROPER BODY MECHANICS TO IMPROVE MOBILITY, AND PREVENT INJURY OF PATIENT AND/OR CAREGIVER. PHYSICAL THERAPY TO ASSESS AND RECOMMEND HOME SAFETY ADAPTATIONS AND EDUCATE PATIENT /CAREGIVER ON FALL PREVENTION STRATEGIES.] Goal 2023-05-22 Patient Goal - AVOID HOSPITA LIZATION Goal Provider Goal - A PLAN OF CARE WILL BE ESTABLISHED THAT MEETS PATIENT'S PENITENTIARY NEEDS AND INCLUDES PATIENT GOAL FOR HOME HEALTH. Goal Provider Goal - ADDITIONAL ORDERS WILL BE RECEIVED FROM ALTERNATE PHYSICIAN IN A TIMELY MANNER THROUGHOUT THE CERTIFICATION PERIOD. Goal Provider Goal - PATIENT/CAREGIVER WILL VERBALIZE UNDERSTANDING OF EDUCATION PROVIDED ON MEDICATIONS BY THE END OF THE CERTIFICATION PERIOD. Goal Provider Goal - SYMPTOMS OF ANXIETY ARE IDENTIFIED AND INTERVENTIONS INITIATED TO ENABLE PATIENT TO UNDERSTAND AND MANAGE FEELINGS THROUGHOUT EPISODE. Goal Provider Goal - PATIENT/CAREGIVER WILL VERBALIZE UNDERSTANDING OF CYSTITIS, UNSPECIFIED WITHOUT HEMATURIA AND EXACERBATIONS OF GENITOURINARY DISEASE WILL BE PROMPTLY IDENTIFIED FOR EARLY INTERVENTION THROUGHOUT THE CERTIFICATION PERIOD. Goal Provider Goal - BLOOD SUGAR READING WILL BE OBTAINED ORDERED. Goal Provider Goal - PATIENT/CAREGIVER WILL VERBALIZE SIGNS AND SYMPTOMS OF EXACERBATION OF ENDOCRINE DIAGNOSIS TO REPORT TO NURSE/PHYSICIAN THROUGHOUT THE CERTIFICATION PERIOD. Goal Provider Goal - PATIENT/CAREGIVER WILL VERBALIZE SIGNS AND SYMPTOMS OF HYPERTENSION AND WILL BE ABLE TO DEMONSTRATE ABILITY TO MANAGE EXACERBATION BY END OF THE EPISODE. Goal Provider Goal - PATIENT/CAREGIVER WILL VERBALIZE/DEMONSTRATE UTILIZATION OF TOOLS ASSOCIATED WITH THE [facility] SPECIALTY PROGRAM, AND/OR KNOWLEDGE AND MANAGEMENT OF COPD BY END OF EPISODE. Goal Provider Goal - PATIENT/CAREGIVER WILL VERBALIZE/DEMONSTRATE UTILIZATION OF TOOLS ASSOCIATED WITH THE [facility] SPECIALTY PROGRAM, KNOWLEDGE OF DIABETIC MANAGEMENT. CHANGES IN DIABETIC STATUS WILL BE IDENTIFIED AND REPORTED TO PHYSICIAN FOR PROMPT INTERVENTION THROUGHOUT THE CERTIFICATION PERIOD. Goal Provider Goal - PATIENT WILL VERBALIZE/DEMONSTRATE TOLERANCE TO CENTRAL LINE ACCESS PROCEDURE, IV MEDICATION ADMINISTRATION, AND DRESSING CHANGES ORDERED THROUGH CERTIFICATION PERIOD. Goal Provider Goal - SKILLED NURSE TO PERFORM LAB PROCEDURE AND REPORT RESULTS TO PHYSICIAN. Goal Provider Goal - PATIENT/CAREGIVER WILL UTILIZE VIRTUAL VISITS TO ACHIEVE GOALS OUTLINED ON THE PLAN OF CARE. PATIENT WILL HAVE SUPPORT MEASURES ESTABLISHED TO PREVENT HOSPITALIZATION AND PATIENT/CAREGIVER WILL VERBALIZE/DEMONSTRATE METHODS TO REDUCE AVOIDABLE HOSPITALIZATION THROUGHOUT THE CERTIFICATION PERIOD. Goal Provider Goal - PATIENT WILL HAVE SUPPORT MEASURES ESTABLISHED TO PREVENT HOSPITALIZATION AND ED USE AND PATIENT/CAREGIVER WILL VERBALIZE/DEMONSTRATE METHODS TO REDUCE AVOIDABLE HOSPITALIZATION AND ED USE BY END OF EPISODE. Goal Provider Goal - PATIENT/CAREGIVER WILL VERBALIZE UNDERSTANDING OF DISCHARGE PLANNING INSTRUCTIONS BY DATE OF DISCHARGE. Goal Provider Goal - PATIENT/CAREGIVER WILL VERBALIZE/DEMONSTRATE EFFECTIVE HOME SAFETY AND FALL PREVENTION STRATEGIES THROUGHOUT CERTIFICATION PERIOD. Goal Provider Goal - PATIENT/CAREGIVER WILL DEMONSTRATE UNDERSTANDING OF PHARMACOLOGIC AND NONPHARMACOLOGIC PAIN CONTROL MEASURES AND PATIENT WILL HAVE IMPROVEMENT IN PAIN INTERFERING WITH ACTIVITY EVIDENCED BY PAIN CONTROLLED AT LEVEL OF 5 OR LESS BY END OF CERTIFICATION PERIOD. Goal Provider Goal - PATIENT/CAREGIVER WILL VERBALIZE/DEMONSTRATE UNDERSTANDING OF THE MANAGEMENT OF DEPRESSION THROUGHOUT THE CERTIFICATION PERIOD AND SYMPTOMS ARE IDENTIFIED AND MANAGED TO MAINTAIN PATIENT SAFETY IN THE HOME. Goal Provider Goal - PHYSICAL THERAPY EVALUATION TO BE COMPLETED WITH RECOMMENDATIONS AND/OR WRITTEN TREATMENT PLAN OF CARE ESTABLISHED FOR THE PHYSICIANS SIGNATURE PATIENT/CAREGIVER WILL PERFORM THERAPEUTIC EXERCISE/S AND DEMONSTRATE PARTICIPATION IN A HOME PROGRAM TO IMPROVE FUNCTION OF: STG: PT WILL ACHIEVE 4/5 MMT TO BLES WITHIN 3 WKS IN ORDER TO IMPROVE SAFETY WITH TRANSFERS AND AMBULATION LTG: PT DOUGIE ACHIEVE 4+/5 MMT TO BLES WITHIN 4 WKS IN ORDER TO IMPROVE INDEPENDENCE AND SAFETY WITH FUNCTIONAL MOBILITY AND AMBULATION AT HOME AND COMMUNITY PATIENT/CAREGIVER WILL DEMONSTRATE IMPROVED GAIT TECHNIQUES TO MINIMIZE RISK OF INJURY AND INCREASE FUNCTION OF: STG: PT WILL DEMONSTRATE SBA AMBULATION AT HOME FOR 100 FT X 2 WITH/WITHOUT USE OF AD:---DEMONSTRATING SAFE AND EFFECTIVE GAIT PATTERN TO IMPROVE GAIT ENDURANCE, DECREASE FALL RISK AND IMPROVE MOBILITY WITHIN 3 WKS LTG: PT WILL DEMONSTRATE INDEPENDENT AMBULATION WITH/WITHOUT AD DEMONSTRATING SAFE AND IMPROVED GAIT PATTERN IN ORDER TO REGAIN FUNCTIONAL INDEPENDENCE AT HOME AND COMMUNITY WITHIN 4 WKS PATIENT/CAREGIVER WILL DEMONSTRATE/VERBALIZE UNDERSTANDING OF RECOMMENDATIONS TO INCREASE SAFETY IN THE HOME AND FALL PREVENTION TO IMPROVE FUNCTION Reason for Visit INDEPENDENT WITH USE OF ASSISTIVE DEVICE Encounters Start Date/Time End Date/Time Encounter Type Admission Type Attending [facility] Facility Care Department Encounter ID Discharge Date Discharge Status Discharge Condition Discharge Reason Percent Goals Met 2023-04-24 00:00:00 2023-05-22 00:00:00 Outpatient NEW ADMISSION [facility] [id number] 2023-05-22 00:00:00 DISCHARGE TO HOME OR SELF CARE INDEPENDEN T WITH USE OF ASSISTIVE DEVICE PER CLIENT REQUEST 79.59
--- OUTSIDE RECORDS SUMMARY | 2024-09-07 10:59 | XMS_ITS ---
Author Name Michelle Murillo Address [address] [place] [id number] Phone [phone] Organization [facility] e, NA DOCUMENT DISCLAIMER Multiple document versions may exist, please be sure you review the latest version. The information in the [facility] Progress Note Document represents a providers documented clinical note containing certain health and medical information. It may not contain the complete medical history for the patient and should be independently verified. The represented time in the document is Eastern Time PROVIDER ROUNDING NOTE COMPREHENSIVE Patient:?Alonso?Sandy,?1950,?74y,?M Dialysis?[place] Attending?Senior Care Provider:?Lennie Service?Date:?08/21/2024 Service?Provider:?Michelle?Chidi,? I?met?face?to?face?with?the?patient?today. OVERVIEW The?patient?presented?with?ESRD?on?dialysis Primary?cause?of?renal?failure:?Type?2?diabetes?mellitus&#16 0;with?diabetic?chronic?kidney?disease Comments:?VSS,?seen?on?HD?machine.?? He?has?started?on?PT. Medications?and?labs?reviewed. LAST?HOSPITALIZATION Discharge?Diagnosis:?U07.1?Covid-19 Z45.02?Encounter?for?adjustment?and?management?of?automatic? implantable?cardiac?defibrillator Z95.810?Presence?of?automatic?(implantable)?cardiac?defibrillator Admission?Date?04/13/23 Discharge?Date?04/22/23 TRANSPLANT Comments:?[facility],?wait?listed?for?cardiac?clearance.??Pacemaker ?placed?on?03/23/24.??Questioning?becoming?active,?advised&# 160;by?SW?to?call?transplant?team.? Reports?up?coming?appt?next?month?with?transplant. DIALYSIS?PRESCRIPTION ??IHD?3x?Week?Start?date:?08/19/24 ??Dialyzer:?180NRe?Optiflux ??BFR:?450 ??DFR:?Autoflow?1.5 ??Potassium:?3.0 ??Sodium:?136 ??EDW:?78 ??Duration:?3:30 ??Calcium:?2.5 ??Bicarb:?39 ??Rx?updated?on:?08/19/2024 Comments:?Decrease?bicarb?bath?to?36. TREATMENT?ASSESSMENT Comments:?Stable. BP?Stand?Pre ??08/19/2024:?117/71 ??08/14/2024:?133/76 BP?Sit?Pre ??08/19/2024:?127/81 ??08/16/2024:?106/53 ??08/14/2024:?157/83 BP?Stand?Post ??08/19/2024:?141/86 ??08/16/2024:?111/62 ??08/14/2024:?157/74 BP?Sit?Post ??08/19/2024:?136/93 ??08/16/2024:?104/66 ??08/14/2024:?129/67 Tx?Duration ??08/19/2024:?3:30 ??08/16/2024:?3:34 ??08/14/2024:?3:37 Missed?Treatments 0?-?last?30?days 0?-?last?60?days FLUID?ASSESSMENT Comments:?Stable EDW?(kg) ??08/19/2024:?77.2 ??08/16/2024:?77.2 ??08/14/2024:?77.2 Weight?Pre?(kg) ??08/19/2024:?78.0 ??08/16/2024:?77.3 ??08/14/2024:?77.1 Weight?Post?(kg) ??08/19/2024:?78.0 ??08/16/2024:?76.9 ??08/14/2024:?77.5 PWV?(kg) ??08/19/2024:?0.8 ??08/16/2024:?-0.3 ??08/14/2024:?0.3 UF?Rate?(mL/kg/hr) ??08/19/2024:?0 ??08/16/2024:?1.5 ??08/14/2024:?-1.4 ADEQUACY?ASSESSMENT Comments:?Stable?trend. spKt/V,?URR ??08/07/2024:?1.59,?77.0 ??07/10/2024:?1.6,?77.0 ??06/05/2024:?1.6,?77.0 ACCESS?ASSESSMENT ??Access?Type:?AVFistula ??Access?SubType:?Standard ??Access?Status:?Active?(In?Use)?-?05/12/2021 ??Access?Location:?Left?Forearm ??Created:?02/04/2021 Flow ??07/30/2024:?982 ??06/21/2024:?1315 ??05/20/2024:?930 Vascular?access?reviewed.?Current?access?is?permanent?and?functioning?well. ANEMIA?ASSESSMENT Comments:?On?IV?iron?and?OLIVER?protocol. HGB,?TSAT ??08/14/2024:?11.7,?- ??08/07/2024:?11.0,?34.0 ??07/30/2024:?10.6,?- ?? Ferritin ??08/07/2024:?1434.0 ??05/08/2024:?1070.0 ??02/07/2024:?1436.0 Mircera,?IVP?(mcg) ??08/14/2024:?50 ??07/30/2024:?50 ??07/17/2024:?50 Iron?Sucrose?(Venofer)?(mg) ??08/05/2024:?50 ??08/02/2024:?100 ??07/30/2024:?100 BMM?ASSESSMENT Comments:?Stable?at?goal. PTH,?Intact ??08/07/2024:?142.0 ??05/08/2024:?219.0 ??02/07/2024:?311.0 ?? Calcium,?Phosphorus ??08/07/2024:?9.1,?2.6 ??07/10/2024:?9.4,?2.6 ??06/05/2024:?9.2,?2.7 Vitamin?D?(Calcitriol)?Oral?(mcg) ??08/19/2024:?0.75 ??08/16/2024:?0.75 ??08/14/2024:?0.75 Cinacalcet?(Sensipar)?(mg) ??08/14/2024:?30 ??08/12/2024:?30 ??08/09/2024:?30 NUTRITION?ASSESSMENT Comments:?Stable?at?goal. Potassium,?Albumin ??08/07/2024:?4.5,?3.9 ??07/10/2024:?4.8,?4.1 ??06/05/2024:?4.6,?3.8 ?? eNPCR ??08/07/2024:?0.68 ??07/10/2024:?0.8 ??06/05/2024:?0.74 PHYSICAL?EXAM Exam?Performed.?Vital?Signs?Reviewed.?CV?-?Blood?pressure&#1 60;noted.?EXT?-?No?edema.?EXT?-?No?ulcers.?AVF/AVG Positive?thrill/bruit. DIAGNOSIS Chief?Complaint:?N18.6?End?stage?renal?disease Patient?is?stable. Patient?data?updated?08/21/2024?at?10:50?AM Signed?By:?Chidi,?Michelle,???on?08/21/2024?10:51:55?AM END OF DOCUMENT
--- OUTSIDE RECORDS SUMMARY | 2024-09-07 10:59 | XMS_ITS ---
Author Name Joss, Clinic Address [address] [place] [address] Phone [phone] Organization [facility] e, NA DOCUMENT DISCLAIMER Multiple document versions may exist, please be sure you review the latest version. The information in the [facility] Continuity of Care Document represents a summary of certain health and medical information. It may not contain the complete medical history for the patient and should be independently verified. The represented time in the document is Eastern Time. 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 Active April 29, 2024 Hypomagnesemia E83.42 Active February 09, 2024 Presence of automatic (impla ntable) cardiac defibrillator Z95.810 Active April 29, 2023 Encounter for adjustment and management of automatic implantable cardiac defibrillator Z45.02 Active April 14, 2023 Covid-19 U07.1 Active April 14, 2023 Dependence on renal dialysis Z99.2 Active October 17, 2022 End stage renal disease N18.6 Active Febr uary 2022 Other disorders of phosphorus metabolism E83.39 Active June 13, 2022 Muscle weakness (generalized) M62.81 Active April 13, 2022 Encounter for screening for COVID-19 Z11.52 Acti ve September 22, 2021 Allergy, unspecified, subsequent encounter T78.40XD Active December 15, 2020 Nausea R11.0 Active December 15, 2020 Shortness of breath R06.02 Active December Chest pain, unspecified R07.9 Active Apri l 2020 Cramp and spasm R25.2 Active December 15 Hypotension of hemodialysis I95.3 Active December 15, 2020 Fever, unspecified R50.9 Active December 15, 2020 Pain, unspecified R52 Active December 15, 2020 Encounter for screening for respiratory tuberculosis Z11.1 Active December 15, 2020 Encounter for immunization Z23 Active A pril 2020 Secondary hyperparathyroidism of renal origin N25.81 Active December 15, 2020 Iron deficiency anemia, unspecified D50.9 Activ e December 15, 2020 Anemia in chronic kidney disease D63.1 Active December 15, 2020 Obstructive sleep apnea (adult) (pediatric) G47.33 Active December 15, 2020 Chronic obstructive pulmonary disease, unspecified J44 .9 Active December 15, 2020 Other specified depressive episodes F32.89 Activ e December 15, 2020 Essential (primary) hypertension I10 Active December 15, 2020 Gout, unspecified M10.9 Active December 15, 2020 Hyperlipidemia, unspecified E78.5 Active December 15, 2020 Tobacco use Z72.0 Active December 15, 2020 Personal history of malignant neoplasm of bladder Z85. 51 Active December 15, 2020 Personal history of other ma lignant neoplasm of kidney Z85.528 Active December 15, 2020 Malignant neoplasm of bladder, unspecified C67.9 Active December 15, 2020 Other specified disorders of kidney and ureter N28.89 Active December 15, 2020 Encounter for fitting and ad justment of extracorporeal dialysis catheter Z49.01 Active December 032020 Coagulation defect, unspecified D68.9 Active December 15, 2020 Type 2 diabetes mellitus wit h diabetic chronic kidney disease E11.22 Active December 15, 2020 End stage renal disease N18.6 Active Apri l 2020 ALLERGIES AND ADVERSE REACTIONS No Known Allergies SOCIAL HISTORY Tobacco Use Status Tobacco Type Unknown if ever consumed tobacco - Caregiver Characteristics No Information Available Characteristics of Home environment No Information Available Gender and Sex Information Gender Identity Sexual Orientation Male Decline to answer MEDICATIONS Prescribed Medications for Dialysis Treatments Medication Instructions Dosage Route Start Date End Date Stat us Heparin Sodium (Porcine) 1,000 Units/mL Systemic Bolus, Every Treatment, Total treatment minutes 210 5000 units Intravenous - push April 29, 2024 April 28, 2025 Active Vitamin D (Calcitriol) Oral 3X Week 0.75 mcg Oral November 13, 2023 November 11, 2024 Active Cinacalcet (Sensipar) Post Dialysis, 3X Week 30 mg Oral January 10, 2024 January 08, 2025 Discontinued Mircera During Dialysis, Every 2 weeks 50 mcg Intravenous - push June 19, 2024 June 18, 2025 Discontinued Home Medications Medication Instructions Dosage Route Start Date End Date Stat acetaminophen 325 mg Take by mouth four times a day as needed for pain 2 tablet ORAL July 07, 2023 Active allopurinol 100 mg Take by mouth every night as directed 2 tablet ORAL February 17, 2021 Active ascorbic acid 500 Take by mouth once a day 2 tablet by mouth February 17, 2021 Active aspirin 81 mg Take by mouth once a day as directed 1 tablet ORAL November 19, 2021 Active bupropion HCl 150 mg Take by mouth once a day as directed 2 tablet ORAL March 20, 2024 Active carvedilol 25 mg Take by mouth twice a day as directed 1/2 tablet ORAL July 07, 2023 Active colchicine 0.6 mg Take by mouth twice a week 0.5 tablet ORAL July 08, 2022 Active Creon 12,000-38,000-6 0,000 unit Take by mouth three times a day 3 capsule ORAL November 19, 2021 Active ferrous sulfate 325 mg (65 mg iron) Take by mouth twice a day 1 tablet ORAL March 20, 2024 Active glucose 2 gram Take by mouth three times a day 1 tablet ORAL January 05, 2024 Active Humalog U-100 Insulin 100 unit/mL Inject subcutaneously three times a day with meals SUBCUTANEOUS February 24, 2021 Active Lantus Solostar U-100 Insulin 100 unit/mL (3 mL) Inject subcutaneously every evening 12 unit SUBCUTANEOUS March 16, 2022 Active lidocaine-prilo vicente 2.5-2.5% Apply to affected area as directed 1 a small amount TOPICAL July 07, 2023 Active Lipitor 80 mg Take by mouth every evening 1/2 tablet ORAL May 15, 2024 Active midodrine 5 mg Take by mouth three times a day 1 tablet ORAL November 09, 2022 Active omeprazole 20 mg Take by mouth every morning 1 capsule ORAL November 24, 2023 Active oxybutynin chloride 5 mg Take by mouth three times a day as needed 1 tablet ORAL January 05, 2024 Active Protonix 40 mg Take by mouth once a day 1 tablet ORAL March 18, 2024 Active Renal-Oliva 0.8 mg Take by mouth once a day 1 tablet ORAL September 08, 2023 Active sevelamer carbonate 800 mg Take by mouth three times a day with meals 3 tablet ORAL August 09, 2024 Active sevelamer carbonate 800 mg Take 3 tablet ORAL August 09, 2024 Active sodium bicarbonate 650 mg Take by mouth four times a day 1 tablet ORAL April 08, 2024 Active tamsulosin 0.4 mg Take by mouth every evening 2 capsule ORAL July 07, 2023 Active Vitamin D3 125 mcg (5,000 unit) Take by mouth once a day 1 tablet ORAL June 12, 2024 Active D3-2000 50 mcg (2,000 unit) Take once a day 1 capsule ORAL June 12, 2024 August 09, 2024 Discontinued VITAL SIGNS Post-Treatment Vital Signs Vital Sign Value Date / Time Blood Pressure-sitting 124/64 mmHg September 07:12 AM Blood Pressure-standing 128/80 mmHg September 06, 2024 07:12 AM Heart Rate 81 beats per minute September 06, 2024 07:12 AM Respiratory Rate 18 breaths per minute September 07:12 AM Temperature 97.8 deg. F September 06, 2024 07:12 AM Weight Vital Sign Value Date / Time Estimated Dry Weight 76.9 kg August 11:59 PM Pre-Dialysis 77.40 kg September 06, 2024 07:12 AM Post-Dialysis 77.40 kg September 06, 2024 07:12 AM Other Other Value Date / Time Height 171 cm October 28 12:00 AM Body Mass Index 26.67 kg/m2 August 23 12:23 PM HEALTH CONCERNS Tuberculosis Testing TST Date Administered TST Date Read TST Result 05/10/2021 05/12/2021 Negative (<5) mm LAB RESULTS Hematology Result Type Result Value Relevant Referen ce Range Interpretation Date Neutrophils 68.9 % 40.0 - 75.0 % - April 10, 2024 WBC (No Diff) 6.69 1000/mcL 4.80 - 10.80 1000/mcL - April 10, 2024 Platelets 204 1000/mcL 130 - 400 1000/mcL - 2023 Transferrin Sat. (Calc) 40 % 20 - 55 % - April 10, 2024 TIBC (Calc) 221 mcg/dL 185 - 515 mcg/dL - April 10, 2024 UIBC/TIBC 132 mcg/dL 155 - 355 mcg/dL Low April Transferrin Sat. (Calc) 33 % 20 - 55 % - May 08 Neutrophils 67.4 % 40.0 - 75.0 % - May 08, 2024 WBC (No Diff) 3.96 1000/mcL 4.80 - 10.80 1000/mcL Low May 08, 2024 UIBC/TIBC 164 mcg/dL 155 - 355 mcg/dL - 2023 TIBC (Calc) 244 mcg/dL 185 - 515 mcg/dL - 2023 Ferritin 1070 ng/mL 22 - 322 ng/mL High May 08, 2024 Platelets 113 1000/mcL 130 - 400 1000/mcL Low May WBC (No Diff) 6.09 1000/mcL 4.80 - 10.80 1000/mcL - June 05, 2024 Neutrophils 73.0 % 40.0 - 75.0 % - June Transferrin Sat. (Calc) 37 % 20 - 55 % - June 05, 2024 TIBC (Calc) 229 mcg/dL 185 - 515 mcg/dL - June 05, 2024 Platelets 142 1000/mcL 130 - 400 1000/mcL - 2023 UIBC/TIBC 144 mcg/dL 155 - 355 mcg/dL Low June 05, 2024 Hemoglobin x 3 33.6 % 42.0 - 54.0 % Low June 12, 2024 Hemoglobin x 3 33.3 % 42.0 - 54.0 % Low June 19, 2024 Hemoglobin x 3 33 % 42.0 - 54.0 % Low June 26, 2024 Hemoglobin x 3 33.6 % 42.0 - 54.0 % Low July 03, 2024 WBC (No Diff) 7.65 1000/mcL 4.80 - 10.80 1000/mcL - July 10, 2024 MCHC 32.2 g/dL 30.0 - 36.0 g/dL - July 10, 2024 MCH 30.2 pg 27.0 - 31.0 pg - July RDW 15.4 % 11.5 - 14.5 % High July Basophils 1.4 % 0.0 - 1.5 % - July 10, 2024 Eosinophil 3.3 % 0.0 - 7.0 % - July 10, 2024 KAITLYNN 1.4 % 0.0 - 4.0 % - July 10, 2024 Platelets 156 1000/mcL 130 - 400 1000/mcL - Nove mber 2023 Hemoglobin x 3 33.9 % 42.0 - 54.0 % Low Novembe r 2023 Neutrophils 76.2 % 40.0 - 75.0 % High July Monocytes 4.7 % 3.0 - 10.0 % - July 10, 2024 Lymphocytes 13.1 % 19.0 - 48.0 % Low July Iron 55 mcg/dL 45 - 160 mcg/dL - July 10, 2024 UIBC/TIBC 176 mcg/dL 155 - 355 mcg/dL - July 10, 2024 TIBC (Calc) 231 mcg/dL 185 - 515 mcg/dL - Novembe r 2023 Transferrin Sat. (Calc) 24 % 20 - 55 % - July 10 Hemoglobin x 3 31.8 % 42.0 - 54.0 % Low Novembe r 2023 Hemoglobin x 3 32.4 % 42.0 - 54.0 % Low Novembe r 2023 Hemoglobin x 3 31.8 % 42.0 - 54.0 % Low Novembe r 2023 Hemoglobin x 3 33 % 42.0 - 54.0 % Low Decembe r 2023 Platelets 193 1000/mcL 130 - 400 1000/mcL - Dece mb2023 RDW 16.3 % 11.5 - 14.5 % High August MCH 29.1 pg 27.0 - 31.0 pg - August MCHC 30.9 g/dL 30.0 - 36.0 g/dL - August 07, 2024 WBC (No Diff) 6.03 1000/mcL 4.80 - 10.80 1000/mcL - August 07, 2024 Transferrin Sat. (Calc) 34 % 20 - 55 % - August 07 UIBC/TIBC 133 mcg/dL 155 - 355 mcg/dL Low August 07, 2024 TIBC (Calc) 201 mcg/dL 185 - 515 mcg/dL - 2023 Iron 68 mcg/dL 45 - 160 mcg/dL - August 07, 2024 Ferritin 1434 ng/mL 22 - 322 ng/mL High August KAITLYNN 1.7 % 0.0 - 4.0 % - August 07, 2024 Eosinophil 2.6 % 0.0 - 7.0 % - August 07, 2024 Basophils 1.1 % 0.0 - 1.5 % - August 07, 2024 Lymphocytes 14.2 % 19.0 - 48.0 % Low August Monocytes 5.6 % 3.0 - 10.0 % - August 07, 2024 Neutrophils 74.8 % 40.0 - 75.0 % - August Hemoglobin x 3 35.1 % 42.0 - 54.0 % Low Decee r 2023 HGB 11.7 g/dL 14.0 - 18.0 g/dL Low August 14, 2024 Hemoglobin x 3 31.5 % 42.0 - 54.0 % Low Decembe r 2023 HGB 10.5 g/dL 14.0 - 18.0 g/dL Low August 21, 2024 Ferritin 1314 ng/mL 22 - 322 ng/mL High August 052023 Hemoglobin x 3 33 % 42.0 - 54.0 % [facility] HGB 11.0 g/dL 14.0 - 18.0 g/dL Low August 27, 2024 Metabolic/Renal Result Type Result Value Relevant Referen ce Range Interpretation Date Hemoglobin A1c 5.7 % 4.8 - 5.9 % - May 08, 2024 URR, Calc 77 % 65 - 80 % - July 10, 024 BUN, Post 11 mg/dL 6 - 19 mg/dL - July 10, 2024 BUN 48 mg/dL 6 - 19 mg/dL High July 10, 2024 Creatinine, Serum 5.42 mg/dL 0.60 - 1.30 mg/dL High July 10, 2024 BUN/Creat Ratio 8.9 10.0 - 20.0 Low July 10, 2024 Sodium 141 mEq/L 136 - 145 mEq/L - July 10, 2024 Potassium 4.8 mEq/L 3.5 - 5.1 mEq/L - July 10, 2024 Chloride 102 mEq/L 96 - 108 mEq/L - July Bicarbonate 26 mEq/L 22 - 29 mEq/L - July Hemoglobin A1c 6.6 % 4.8 - 5.9 % High August 07, 2024 BUN/Creat Ratio 7.8 10.0 - 20.0 Low August 07, 2024 Sodium 145 mEq/L 136 - 145 mEq/L - August 07, 2024 BUN 39 mg/dL 6 - 19 mg/dL High August 07, 2024 Creatinine, Serum 5.00 mg/dL 0.60 - 1.30 mg/dL High August 07, 2024 Potassium 4.5 mEq/L 3.5 - 5.1 mEq/L - August 07, 2024 Chloride 106 mEq/L 96 - 108 mEq/L - August Bicarbonate 28 mEq/L 22 - 29 mEq/L - August BUN, Post 9 mg/dL 6 - 19 mg/dL - August 07, 2024 URR, Calc 77 % 65 - 80 % - August 07, 2 024 HD Adequacy Result Type Result Value Relevant Referen ce Range Interpretation Date Krt/V 0.00 No Reference Ran ge Provided - March 13, 2024 Krt/V 0.00 No Reference Ran ge Provided - April 19, 2024 Krt/V 0.00 No Reference Ran ge Provided - May 08, 2024 Krt/V 0.00 No Reference Ran ge Provided - June 05, 2024 wstdKt/V without residual 2.5 No Reference Range Provided - July 10, 2024 spKt/V (Daugirdas II) 1.60 No Reference Range Provided - July 10, 2024 eKt/V ([place]) 1.38 No Reference Range Provided - July 10, 2024 Krt/V 0.00 No Reference Ran ge Provided - July 10, 2024 spKt/V Gotch 1.59 No Reference Ran ge Provided - July 10, 2024 wstdKt/V 2.5 No Reference Ran ge Provided - July 10, 2024 wstdKt/V, residual 0.0 No Reference Range Provided - July 10, 2024 wstdKt/V 2.5 No Reference Ran ge Provided - August 07, 2024 eKt/V ([place]) 1.36 No Reference Range Provided - August 07, 2024 wstdKt/V without residual 2.5 No Reference Range Provided - August 07, 2024 spKt/V Gotch 1.59 No Reference Ran ge Provided - August 07, 2024 spKt/V (Daugirdas II) 1.59 No Reference Range Provided - August 07, 2024 wstdKt/V, residual 0.0 No Reference Range Provided - August 07, 2024 Krt/V 0.00 No Reference Ran ge Provided - August 07, 2024 Bone/Mineral Result Type Result Value Relevant Referen ce Range Interpretation Date Magnesium 1.7 mg/dL 1.6 - 2.6 mg/dL - November 08, 2023 Vitamin D 25 Hydroxy 48.0 ng/mL 30 - 100 ng/mL - November 08, 2023 Magnesium 1.7 mg/dL 1.6 - 2.6 mg/dL - February 07, 2024 Magnesium 2.0 mg/dL 1.6 - 2.6 mg/dL - February 21, 2024 PTH-Intact, Plasma 219 pg/mL 16 - 80 pg/mL High Sep 2023 Magnesium 2.0 mg/dL 1.6 - 2.6 mg/dL - May 08, 2024 Calcium, Total 9.4 mg/dL 8.4 - 10.2 mg/dL - 2023 Phosphorus 2.6 mg/dL 2.6 - 4.5 mg/dL - July 10, 2024 Ca x P Product - July Corrected Ca x P Product - July 10 PTH-Intact, Plasma 142 pg/mL 16 - 80 pg/mL High Dec 2023 Ca x P Product - August Alkaline Phosphatase 84 U/L 40 - 129 U/L - 2023 Calcium, Total 9.1 mg/dL 8.4 - 10.2 mg/dL - 2023 Phosphorus 2.6 mg/dL 2.6 - 4.5 mg/dL - August 07, 2024 Corrected Ca x P Product 0 - August 07 Magnesium 1.9 mg/dL 1.6 - 2.6 mg/dL - August 07, 2024 Liver/Nutrition Result Type Result Value Relevant Referen ce Range Interpretation Date eNPCR 0.80 No Reference Ran ge Provided - July 10, 2024 Total Protein 6.3 g/dL 6.0 - 8.5 g/dL - 2023 Albumin (BCG) 4.1 g/dL 3.5 - 5.2 g/dL - 2023 Globulin (Calc) 2.2 g/dL 2.0 - 4.0 g/dL - [facility] 2023 A/G Ratio 1.9 1.0 - 2.0 - July 10 024 Glucose 152 mg/dL 70 - 100 mg/dL High July eNPCR 0.68 No Reference Ran ge Provided - August 07, 2024 Total Protein 6.2 g/dL 6.0 - 8.5 g/dL - 2023 SGOT (AST) 15 U/L 13 - 39 U/L - August 07, 2024 SGPT (ALT) 22 U/L 7 - 52 U/L - August 07 Albumin (BCG) 3.9 g/dL 3.5 - 5.2 g/dL - 2023 Glucose 128 mg/dL 70 - 100 mg/dL High August Globulin (Calc) 2.3 g/dL 2.0 - 4.0 g/dL - [facility] 2023 A/G Ratio 1.7 1.0 - 2.0 - August 07 024 Cardiovascular Result Type Result Value Relevant Referen ce Range Interpretation Date Creatine Kinase 30 U/L 30 - 223 U/L - 2023 Immunochemistry Result Type Result Value Relevant Referen ce Range Interpretation Date HCV s/co ratio 0.05 0.00 - 0.79 - November 08, 2023 HCV s/co ratio 0.05 0.00 - 0.79 - May 08, 2024 Trace Elements Result Type Result Value Relevant Reference Range Interpre tation Date Aluminum 6 mcg/L 0 - 10 mcg/L - November 07 24 Aluminum 5 mcg/L 0 - 10 mcg/L - May Infectious Diseases Result Type Result Value Relevant Referen ce Range Interpretation Date Hep B Surface Ag (HBsAg) Negative No Reference Range Provided - November 08, 2023 Hep B Surface Ab (anti-HBs) 196 mIU/mL No Reference Range Provided - November 08, 2023 HCV Ab (anti-HCV) Nonreactive No Reference R chuck Provided - May 08, 2024 DIALYSIS PRESCRIPTION Conventional Hemodialysis Data Element Value Order Date/Time September 02, 2024 Frequency 3X Week Treatment Days MonWedFri Dialyzer 180NRe Optiflux Treatment Time (Total Minutes) 210 min Blood Flow Rate (mL/min) 450 mL/min Dialysate Flow Rate Autoflow 1.5 Estimated Dry Weight 76.9 kg Dialysate Concentrate 3.0 K, 2.5 Ca, 1.0 Mg, 100 Dextrose (G3251) Sodium (mEq/L) 136 mEq/L Bicarb Machine Setting (mEq/L) 36 mEq/L Dialysis Access Hemodialysis-AV Fist marino-Standard, Left Forearm, Radial Artery to Cephalic Vein Access Placed on February 04, 2021 Arterial Needle Size 15g1 Venous Needle Size 15g1 IMMUNIZATIONS Vaccine Date Dose Route Status Flu Vaccine - Flucelvax Trivalent June 19, 2024 0.5 mL Intramuscular Completed Flu Vaccine - Flublok Quadrivalent June 19, 2023 0.5 mL Intramuscular Completed [id number], series 4 of June 11, 2021 40.0 mcg Intramuscular Completed [id number] April 14, 2021 40.0 mcg Intramuscular C ompleted PNEUMOVAX March 12, 2021 0.5 mL Intramuscular Comple joel [id number], series 2 of 4 January 15, 2021 40.0 mcg Int ramuscular Completed PREVNAR December 28, 2020 0.5 mL Intramuscular Complet ed [id number]-[id number], series 1 of December 21, 2020 40.0 mcg I ntramuscular Completed TRANSPLANT WAITLIST STATUS Transplant List Type Transplant State/Center Tra nsplant List Status Kidney transplant list [facility] Inactive ADVANCE DIRECTIVES Directive Description Ordered By Effective Date Resuscitation status Full Code Michelle Murillo Apr DIALYSIS TREATMENTS Conventional Hemodialysis Date Pre-Treatment Vitals Post-Treatment Raine ls Duration (hr) BFR (mL/min) Dialysate Dialyzer Dialysis Access Meds Admin Decem 2023 Weight 76.80 kg Weight 76.90 kg 03:33:00 450 3.0 K, 2.5 Ca, 1.0 Mg, 100 Dextrose (G3251) 180nre Optifl ux Blood Pressure-sitting 127/70 mmHg Blood Pressure-sit ting 153/77 mmHg Heart Rate 72 beats per minute Blood Pressure-standi ng 135/78 mmHg Respiratory Rate 18 breaths per minute Heart Rate 81 beats per minute Temperature 97.8 deg. F Respiratory Rate 18 breaths per minute - - Temperature 98.0 deg. F September 03, 2024 Weight 77.00 kg Weight 78.50 kg 03:14:00 460 3.0 K, 2.5 Ca, 1.0 Mg, 100 Dextrose (G3251) 180nre Optiflux Hemodialysis-AV Fistula-Standard, Left Forearm, Radial Artery to Cephalic Vein Access Placed on February 04, 2021 Heparin Sodium (Porcine) 1,000 Units/mL Systemic; 5000units,Intravenous - push Vitamin D (Calcitriol) Oral; 0.75mcg,Oral Blood Pressure-sitting 139/76 mmHg Blood Pressure-sit ting 153/76 mmHg Blood Pressure-standing 106/75 mmHg Blood Pressure-st anding 152/75 mmHg Heart Rate 54 beats per minute Heart Rate 67 beats per minute Respiratory Rate 16 breaths per minute Respiratory Rate 16 breaths per minute Temperature 97.8 deg. F Temperature 97.5 deg. F September 06, 2024 Weight 77.40 kg Weight 77.40 kg 03:35:00 450 3.0 K, 2.5 Ca, 1.0 Mg, 100 Dextrose (G3251) 180nre Optiflux Hemodialysis-AV Fistula-Standard, Left Forearm, Radial Artery to Cephalic Vein Access Placed on February 04, 2021 Heparin Sodium (Porcine) 1,000 Units/mL Systemic; 5000units,Intravenous - push Vitamin D (Calcitriol) Oral; 0.75mcg,Oral Blood Pressure-sitting 134/68 mmHg Blood Pressure-sit ting 124/64 mmHg Blood Pressure-standing 112/65 mmHg Blood Pressure-st anding 128/80 mmHg Heart Rate 72 beats per minute Heart Rate 81 beats per minute Respiratory Rate 18 breaths per minute Respiratory Rate 18 breaths per minute Temperature 97.6 deg. F Temperature 97.8 deg. F
--- OUTSIDE RECORDS SUMMARY | 2024-09-07 10:59 | XMS_ITS ---
Author Name Sera Hooks Address [address] [place] [address] Phone [phone] [facility], NA DOCUMENT DISCLAIMER Multiple document versions may exist, please be sure you review the latest version. The information in the [facility] Progress Note Document represents a providers documented clinical note containing certain health and medical information. It may not contain the complete medical history for the patient and should be independently verified. The represented time in the document is Eastern Time PROVIDER ROUNDING NOTE COMPREHENSIVE Patient:?Alonso?Sandy,?1950,?74y,?M Dialysis?Location:?[place] Attending?Dry Room Attendant:?Lennie Service?Date:?08/12/2024 Service?Provider:?Sera?Jessee,?REFUGE WORKER I?met?face?to?face?with?the?patient?today. OVERVIEW The?patient?presented?with?ESRD?on?dialysis Primary?cause?of?renal?failure:?Type?2?diabetes?mellitus&#16 0;with?diabetic?chronic?kidney?disease Comments:?VSS,?seen?on?HD?machine.?? He?has?started?on?PT Medications?and?labs?reviewed. LAST?HOSPITALIZATION Discharge?Diagnosis:?U07.1?Covid-19 Z45.02?Encounter?for?adjustment?and?management?of?automatic? implantable?cardiac?defibrillator Z95.810?Presence?of?automatic?(implantable)?cardiac?defibrillator Admission?Date?04/13/23 Discharge?Date?04/22/23 TRANSPLANT Comments:?[facility],?wait?listed?for?cardiac?clearance.??Pacemaker ?placed?on?03/23/24.??Questioning?becoming?active,?advised&# 160;by?SW?to?call?transplant?team.? Reports?up?coming?appt?next?month?with?transplant. DIALYSIS?PRESCRIPTION ??IHD?3x?Week?Start?date:?08/07/24 ??Dialyzer:?180NRe?Optiflux ??BFR:?450 ??DFR:?Autoflow?1.5 ??Potassium:?3.0 ??Sodium:?136 ??EDW:?77.2 ??Duration:?3:30 ??Calcium:?2.5 ??Bicarb:?39 ??Rx?updated?on:?08/07/2024 TREATMENT?ASSESSMENT Comments:?Stable. BP?Stand?Pre ??08/07/2024:?113/56 ??08/05/2024:?112/55 BP?Sit?Pre ??08/09/2024:?123/69 ??08/07/2024:?138/77 ??08/05/2024:?115/71 BP?Stand?Post ??08/09/2024:?116/72 ??08/07/2024:?166/87 ??08/05/2024:?109/47 BP?Sit?Post ??08/09/2024:?113/52 ??08/07/2024:?153/86 ??08/05/2024:?163/84 Tx?Duration ??08/09/2024:?3:34 ??08/07/2024:?3:33 ??08/05/2024:?3:31 Missed?Treatments 0?-?last?30?days 0?-?last?60?days FLUID?ASSESSMENT Comments:?Stable EDW?(kg) ??08/09/2024:?77.2 ??08/07/2024:?77.7 ??08/05/2024:?77.7 Weight?Pre?(kg) ??08/09/2024:?76.9 ??08/07/2024:?76.7 ??08/05/2024:?76.5 Weight?Post?(kg) ??08/09/2024:?77.1 ??08/07/2024:?76.9 ??08/05/2024:?77.2 PWV?(kg) ??08/09/2024:?-0.1 ??08/07/2024:?-0.8 ??08/05/2024:?-0.5 UF?Rate?(mL/kg/hr) ??08/09/2024:?-0.7 ??08/07/2024:?-0.7 ??08/05/2024:?-2.6 ADEQUACY?ASSESSMENT Comments:?Stable?trend. Adequacy?target?met.?Prescription?compliance?acceptable.? spKt/V,?URR ??08/07/2024:?1.59,?77.0 ??07/10/2024:?1.6,?77.0 ??06/05/2024:?1.6,?77.0 ACCESS?ASSESSMENT ??Access?Type:?AVFistula ??Access?SubType:?Standard ??Access?Status:?Active?(In?Use)?-?05/12/2021 ??Access?Location:?Left?Forearm ??Created:?02/04/2021 Flow ??07/30/2024:?982 ??06/21/2024:?1315 ??05/20/2024:?930 Vascular?access?reviewed.?Current?access?is?permanent?and?functioning?well. ANEMIA?ASSESSMENT Comments:?On?IV?iron?and?OLIVER?protocol. HGB?at?goal.? HGB,?TSAT ??08/07/2024:?11.0,?34.0 ??07/30/2024:?10.6,?- ??07/24/2024:?10.8,?- ?? Ferritin ??08/07/2024:?1434.0 ??05/08/2024:?1070.0 ??02/07/2024:?1436.0 Mircera,?IVP?(mcg) ??07/30/2024:?50 ??07/17/2024:?50 ??07/03/2024:?50 Iron?Sucrose?(Venofer)?(mg) ??08/05/2024:?50 ??08/02/2024:?100 ??07/30/2024:?100 BMM?ASSESSMENT Comments:?Stable?at?goal. PTH,?Intact ??08/07/2024:?142.0 ??05/08/2024:?219.0 ??02/07/2024:?311.0 ?? Calcium,?Phosphorus ??08/07/2024:?9.1,?2.6 ??07/10/2024:?9.4,?2.6 ??06/05/2024:?9.2,?2.7 Vitamin?D?(Calcitriol)?Oral?(mcg) ??08/09/2024:?0.75 ??08/07/2024:?0.75 ??08/05/2024:?0.75 Cinacalcet?(Sensipar)?(mg) ??08/09/2024:?30 ??08/07/2024:?30 ??08/05/2024:?30 NUTRITION?ASSESSMENT Comments:?Stable?at?goal. Potassium,?Albumin ??08/07/2024:?4.5,?3.9 ??07/10/2024:?4.8,?4.1 ??06/05/2024:?4.6,?3.8 ?? eNPCR ??08/07/2024:?0.68 ??07/10/2024:?0.8 ??06/05/2024:?0.74 PHYSICAL?EXAM Exam?Not?Performed. DIAGNOSIS Chief?Complaint:?N18.6?End?stage?renal?disease Patient?data?updated?08/12/2024?at?7:56?AM Signed?By:?Jessee,?Sera,?REFUGE WORKER??on?08/12/2024?8:00:53 AM END OF DOCUMENT
[2024-09-07 11:22] LABS: Glucose Point of Care 176 mg/dL (70-110)
--- NOTE | 2024-09-07 11:43 | PC.NURSE ---
Three Gold colored rings with clear stones with , wallet with , clothing with , gasses left at bedside.
[2024-09-07] MEDS: insulin lispro 100 unit/1 mL SUBCUT ×2 (13:13→18:03)
[2024-09-07] MEDS: clopidogrel 75 mg Tablet PO (13:13)
--- NOTE | 2024-09-07 14:07 | PM.MISC ---
Miscellaneous Note Note: Seen this morning. Agree with assessment and plan and history physical document. Continue as per document at this time. No changes to be made to plan at this time. Patient seen this morning. Resting comfortably in bed. Having echocardiogram done. Denies chest pain.
[2024-09-07] MEDS: sodium bicarbonate 650 mg Tablet PO ×2 (15:11→20:27)
[2024-09-07 17:13] LABS: Glucose Point of Care 360 mg/dL (70-110)
[2024-09-07] MEDS: allopurinol 100 mg Tablet 200 MG PO (18:03)
[2024-09-07] MEDS: tamsulosin 0.4 mg Capsule 0.8 MG PO (18:03)
--- NOTE | 2024-09-07 19:33 | PC.NURSE ---
Uneventful shift, Patient transferred to [facility] room 261 via wheelchair on room air, Patients aware of room change. Patient had no requests or complaints at the time of transfer. Blue bag with clothing and house shoes left at bedside.
--- NOTE | 2024-09-07 19:35 | PC.NURSE ---
Dr. Gomez made aware of patient's elevated blood pressure, Dr. Gomez requested list of home medications, list sent. No new orders at this time.
[2024-09-07 20:50] LABS: Glucose Point of Care 225 mg/dL (70-110)
[2024-09-07] MEDS: insulin lispro 100 unit/1 mL 8 UNIT SUBCUT (21:33)
[2024-09-07] MEDS: hyDRALAzine 20 mg/mL INJ 1 mL 5 MG IVP (21:51)
[2024-09-08] VITALS (11 sets, daily range): BP systolic 147–169; BP diastolic 73–90; PULSE 89–114; RESP 14–19; TEMP 36.3–36.7; O2SAT 94–97
[2024-09-08 04:48] LABS: Basophils # 0.1 10^3/uL (0.0-0.1); Basophils % 0.6 %; Eosinophils # 0.2 10^3/uL (0.0-0.8); Eosinophils % 1.5 %; Hematocrit 32.9 % (37-53); Lymphocytes # 0.9 10^3/uL (0.8-4.8); Lymphocytes % 6.5 %; Mean Corpuscular HGB Conc 32.2 g/dL (30-55); Mean Corpuscular Hemoglobin 30.2 pg (27-33); Mean Corpuscular Volume 93.7 fl (82-101); Mean Platelet Volume 10.6 fL (7.4-10.4); Monocytes % 6.8 %; Neutrophils % 83.9 %; Nucleated Red Blood Cells % 0 %; Platelet Count 194 10^3/cmm (157-399); Red Blood Count 3.51 10^6/uL (3.85-5.65); Red Cell Distribution Width 15.6 % (12.1-15.1); White Blood Count 14.17 10^3/uL (3.29-11.43)
[2024-09-08 05:06] LABS: Anion Gap 26.9 (5-19); Blood Urea Nitrogen 47 mg/dL (8-23); Carbon Dioxide 25 mmol/L (22-29); Chloride 92 mmol/L (98-107); Creatinine Clr Calc Pharmacy 15.0889; Glucose 50 mg/dL (65-115); Osmolality Calculated 298 mOsm/kg (285-295); Potassium 4.9 mmol/L (3.5-5.1); Sodium 139 mmol/L (136-145)
[2024-09-08] MEDS: pantoprazole DR 40 mg Tablet PO (05:14)
[2024-09-08] MEDS: aspirin 81 mg EC Tablet PO (05:14)
--- NOTE | 2024-09-08 06:21 | P.PN_ITS ---
Subjective 2 Subjective: Seen this morning. No acute events overnight. Urine culture is still pending. He feels better overall. Does have dialysis Monday. Understands that for his rib fracture it would be conservative management. Was seen by physical therapy however he was told that he is not ready to be discharged yet but correction was not recommended. Dizziness has somewhat improved but not completely. PT notes reviewed. He may be discharged home and is good to achieve goals. Vitals/I&O/Wt Last Vital Signs Temp 97.4 F L 09/08/24 04:00 Pulse 100 09/08/24 05:30 Resp 19 H 09/08/24 04:00 BP 161/85 09/08/24 04:00 Pulse Ox 97 09/08/24 04:00 O2 Del Method Room Air 09/08/24 04:00 09/07/24 09/07/24 09/08/24 14:59 22:59 06:59 Intake Total 270 / 270 640 / 910 Output Total 750 / 750 400 / 1150 Balance 270 / 270 -110 / 160 -400 / -240 Weight last 48 hrs Weight 75.041 kg Weight 76.345 kg Weight 81.647 kg Physical Exam 2 Narrative: AO x 3 GCS 15 Nons active focal deficit S1, S2 clear to auscultation Currently on room air Hemodynamic stable No active distress Lower extremity no significant edema Data 09/08/24 03:13 09/08/24 03:13 Micro: Microbiology 09/07/24 06:57 Blood Culture - Preliminary Blood SPECIMEN COLLECTED 09/07/24 06:55 Blood Culture - Preliminary Blood SPECIMEN COLLECTED A&P Assessment and plan (1) Diabetes mellitus: (2) End-stage renal disease on hemodialysis: (3) Acute pyelonephritis: (4) Left rib fracture: Plan UTI/pyelonephritis I will start patient on ceftriaxone discontinue Zosyn Afebrile, no active nausea vomiting Patient endorsed to episode of vomiting last 48 hours stating that he does get random episodes of emesis without any association with food no previous history of gastroparesis no cyclical vomiting No active fever Patient still makes urine Monday/end-stage renal disease Will consult nephrology for Monday if patient ends up staying until then 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 Patient is describing his falls related to dizziness and he describes dizziness as room spinning around him Monitor for BPPV, vestibular rehab? Renal diet/consistent carb Insulin sliding scale DVT prophylaxis: Heparin 09/08/2024 -White count trended down to 14,000. ? Patient on dialysis Monday. ? Vomiting has subsided. IV fluids were given initially. ? Physical therapy has evaluated the patient. Home recommended at discharge ? Urine culture is still pending. ? May be discharged home once urine culture results. Attestations 2 Medical Necessity Statement*: Anticipating discharge within 48 hours if white count trending down Diagnoses Diabetes mellitus E11.9 End-stage renal disease on hemodialysis N18.6; Z99.2 Acute pyelonephritis N10 Left rib fracture S22.32XA
[2024-09-08 06:37] LABS: Glucose Point of Care 129 mg/dL (70-110)
[2024-09-08] MEDS: sodium bicarbonate 650 mg Tablet PO ×3 (09:00→20:08)
[2024-09-08] MEDS: lipase-protease-amylase Capsule 3 EACH PO ×3 (09:00→18:08)
[2024-09-08] MEDS: sevelamer 800 mg Tablet 2400 MG PO ×3 (09:00→18:08)
[2024-09-08] MEDS: heparin 5,000 unit/mL INJ 1 mL 5000 UNIT SUBCUT ×2 (09:00→20:08)
[2024-09-08 10:59] LABS: Glucose Point of Care 342 mg/dL (70-110)
[2024-09-08] MEDS: insulin lispro 100 unit/1 mL SUBCUT ×2 (11:38→18:10)
[2024-09-08] MEDS: cefTRIAXone 1,000 mg SDV 1000 MG IVP (11:38)
[2024-09-08] MEDS: clopidogrel 75 mg Tablet PO (11:38)
[2024-09-08 17:15] LABS: Glucose Point of Care 311 mg/dL (70-110)
[2024-09-08] MEDS: allopurinol 100 mg Tablet 200 MG PO (18:08)
[2024-09-08] MEDS: tamsulosin 0.4 mg Capsule 0.8 MG PO (18:09)
[2024-09-08 20:45] LABS: Glucose Point of Care 208 mg/dL (70-110)
--- NOTE | 2024-09-08 20:49 | P.CONIM_ITS ---
Providers/Reason For Consult 2 Consulting Physician/Specialty*: yvette connors md/ telenephrology Reason for Consult*: ESRD care Requesting Physician: DR Tiffany Gomez Attending Physician: Fatoumata Gomez MD Primary Care Provider: Annmarie Jacobson MD History of Present Illness History of Present Illness Alonso Delgado is a 74 year old male h/o ESRD secondary to DM and a nephrectomy, bladder cancer, DM. Pt is here w/ a UTI and a fall - denies syncope and left sided rib fractures. Renal is called for dialysis. pt has pain by rib fractures Review of Systems 2 Narrative: no syncope. no valentino,. no sob, + pleuritic left sided chest pain. no abd pain. no other complaints Medications/Allergies Home Medications Medication Instructions Recorded Confirmed Last Taken Type allopurinol 100 mg tablet 200 mg PO QPM 08/12/21 09/07/24 09/05/24 History ascorbic acid (vitamin C) 500 mg 1,000 mg PO QPM 08/12/21 09/07/24 09/05/24 History tablet cholecalciferol (vitamin D3) 50 50 mcg PO QPM 08/12/21 09/07/24 09/05/24 History mcg (2,000 unit) capsule colchicine 0.6 mg tablet (Colcrys) See Rx Instructions .Route .COMPLEX 08/12/21 09/07/24 09/06/24 History insulin glargine 100 unit/mL (3 See Rx Instructions .Route .COMPLEX 08/12/21 09/07/24 09/06/24 History mL) subcutaneous pen (Lantus Solostar U-100 Insulin) gnlmeq-jrccilqg-jrypbxd 3 cap PO TID 08/12/21 09/07/24 09/06/24 12:00 History 12,000-38,000-60,000 unit capsule,delayed rel (Creon) midodrine 5 mg tablet 5 mg PO TID 08/12/21 09/07/24 09/06/24 12:00 History omeprazole 20 mg capsule,delayed 20 mg PO QAM 08/12/21 09/07/24 09/06/24 History release tamsulosin 0.4 mg capsule 0.8 mg PO QPM 08/12/21 09/07/24 09/05/24 History insulin lispro 100 unit/mL See Rx Instructions .Route .COMPLEX 01/03/22 09/07/24 09/05/24 History subcutaneous pen (Humalog KwikPen (U-100) Insulin) vitamin B comp no.3-folic acid 1 1 tab PO QAM 01/03/22 09/07/24 09/06/24 History mg-vit C 60 mg-biotin 300 mcg tablet ([facility] Rx) sevelamer HCl 800 mg tablet 2,400 mg PO TID 06/14/22 09/07/24 09/06/24 07:00 History sodium bicarbonate 650 mg tablet 650 mg PO QID 06/14/22 09/07/24 09/06/24 13:00 History aspirin 81 mg tablet,delayed 81 mg PO QAM 05/08/23 09/07/24 09/06/24 History release carvedilol 12.5 mg tablet 12.5 mg PO BID 05/08/23 09/07/24 09/06/24 08:00 History atorvastatin 80 mg tablet 40 mg PO QPM 09/07/24 09/07/24 09/05/24 History bupropion HCl 300 mg 24 hr tablet, 300 mg PO QAM 09/07/24 09/07/24 09/06/24 History extended release ferrous sulfate 325 mg (65 mg 325 mg PO BID 09/07/24 09/07/24 09/06/24 07:00 History iron) tablet oxybutynin chloride 5 mg tablet 5 mg PO TID 09/07/24 09/07/24 09/06/24 07:00 History Allergies Allergy/AdvReac Type Severity Reaction Status Date / Time No Known Allergies Allergy Verified 05/08/23 13:58 Current Medications Generic Name Dose Route Start Last Admin Trade Name Freq PRN Reason Stop Dose Admin Allopurinol 200 mg 09/07/24 18:00 09/08/24 18:08 Allopurinol 100 Mg Tablet PO 200 mg QPM [facility] Administration Lipase/Protease/Amylase 3 each 09/07/24 09:45 09/08/24 18:08 Drktcs-Sikgktul-Ymlkgwm Capsule PO 3 each TIDWM [facility] Administration Aspirin 81 mg 09/08/24 06:00 09/08/24 05:14 Aspirin 81 Mg Ec Tablet PO 81 mg QAM [facility] Administration Ceftriaxone Sodium 1,000 mg 09/07/24 11:00 09/08/24 11:38 Ceftriaxone 1,000 Mg Sdv IVP 1,000 mg Q24H [facility] Administration Protocol Clopidogrel Bisulfate 75 mg 09/07/24 12:00 09/08/24 11:38 Clopidogrel 75 Mg Tablet PO 75 mg DAILY@12 [facility] Administration Heparin Sodium (Porcine) 5,000 unit 09/07/24 09:22 09/08/24 20:08 Heparin 5,000 Unit/Ml Inj 1 Ml SUBCUT 5,000 unit Q12H [facility] Administration Insulin Human Lispro 0 unit 09/07/24 09:22 09/08/24 18:10 Insulin Lispro 100 Unit/1 Ml SUBCUT 12 unit TIDWM [facility] Administration Protocol Pantoprazole Sodium 40 mg 09/08/24 06:00 09/08/24 05:[address] 40 Mg Tablet PO 40 mg QAM [facility] Administration Sevelamer Carbonate 2,400 mg 09/07/24 09:45 09/08/24 18:08 Sevelamer 800 Mg Tablet PO 2,400 mg TIDWM [facility] Administration Sodium Bicarbonate 650 mg 09/07/24 15:00 09/08/24 20:08 Sodium Bicarbonate 650 Mg Tablet PO 650 mg TID [facility] Administration Tamsulosin HCl 0.8 mg 09/07/24 18:00 09/08/24 18:09 Tamsulosin 0.4 Mg Capsule PO 0.8 mg QPM [facility] Administration PFSH Acute 2 PFSH: Medical History Bladder cancer BPH (benign prostatic hyperplasia) Gout Depression Anxiety Acute metabolic encephalopathy ESRD (end stage renal disease) ESRD on dialysis Flor-rectal abscess History of stroke 2009 Diabetes mellitus History of bladder cancer GERD (gastroesophageal reflux disease) History of colon polyps Surgical History History of appendectomy History of kidney removal left side History of cholecystectomy History of colonoscopy Family History Other CAD (coronary artery disease) Cancer Chronic kidney disease (CKD) Diabetes Lung disease Social History Smoking and tobacco/nicotine status: former use of tobacco/nicotine Alcohol intake: never Substance/Drug Use: never Vitals/I&O/Wt Last Vital Signs Temp 97.8 F 09/08/24 19:56 Pulse 91 09/08/24 19:56 Resp 16 09/08/24 19:56 BP 169/84 09/08/24 19:56 Pulse Ox 97 09/08/24 19:56 O2 Del Method Room Air 09/08/24 16:00 09/08/24 09/08/24 09/08/24 06:59 14:59 22:59 Intake Total 320 / 320 320 / 640 Output Total 400 / 1150 Balance -400 / -240 320 / 320 320 / 640 Weight last 48 hrs Weight 75.041 kg Weight 76.345 kg Weight 81.647 kg Physical Exam 2 Narrative: VS noted comfortable in bed, NARD neck supple lungs - dull left base heart reg, + s1, s2 abd soft, nt, ns, + bs ext LUE AVF w/ thrill and bruit no edema neuro- a,a, o x 3, moves all ext Data 09/08/24 03:13 09/08/24 03:13 Micro: Microbiology 09/07/24 06:55 Blood Culture - Preliminary Blood NEGATIVE TO DATE 09/07/24 06:57 Blood Culture - Preliminary Blood NEGATIVE TO DATE A&P Assessment and plan (1) End-stage renal disease on hemodialysis: 1. ESRD- HD MWF 2. rib fractures 3. UTI- await results of urine cx. leukocytosis can also be from rib fx 4. anemia- hgb okay for ESRD 5. calcium 10- check phos and pth 6. htn frpom pain- add amlodipine 7. can d/c sodium bicarbonate as he is on HD seen and examined w/ aide of A/V equipment and a nurse pt consents to hD and telehealth. Plan see above Consult Attestations 2 Medical Necessity Statement: rib fx, uti, esrd Time Spent in Patient Care: Greater than 35 minutes (>than 50% of time spent in counselling and/or direct pt care on unit) . Coding Level of Care Code Acute Code for Chg Fwd Diagnoses End-stage renal disease on hemodialysis N18.6; Z99.2
[2024-09-08 22:35] LABS: Uric Acid 4.1 mg/dL (3.4-7.0)
[2024-09-08 22:40] LABS: Hepatitis B Surface Antigen Non-Reactive (Nonreactive); Hepatitis C Virus Antibody Non-Reactive (Nonreactive)
[2024-09-09] VITALS (11 sets, daily range): BP systolic 90–175; BP diastolic 54–89; PULSE 70–112; RESP 16–18; TEMP 36.2–37; O2SAT 92–96
[2024-09-09 03:10] LABS: Basophils # 0.1 10^3/uL (0.0-0.1); Basophils % 0.6 %; Eosinophils # 0.3 10^3/uL (0.0-0.8); Eosinophils % 2.6 %; Hematocrit 31.9 % (37-53); Lymphocytes # 1.3 10^3/uL (0.8-4.8); Lymphocytes % 10.6 %; Mean Corpuscular Hemoglobin 29.7 pg (27-33); Monocytes % 8.1 %; Neutrophils # 9.26 10^3/uL (1.8-7.7); Neutrophils % 77.5 %; Nucleated Red Blood Cells % 0 %; Platelet Count 187 10^3/cmm (157-399); Red Blood Count 3.43 10^6/uL (3.85-5.65); Red Cell Distribution Width 15.6 % (12.1-15.1); White Blood Count 11.94 10^3/uL (3.29-11.43)
[2024-09-09 03:34] LABS: Alanine Aminotransferase 13 U/L (0-41); Albumin Level 3.5 g/dL (3.5-5.2); Alkaline Phosphatase 96 U/L (40-130); Anion Gap 19.8 (5-19); Aspartate Amino Transferase 11 U/L (0-40); Blood Urea Nitrogen 56 mg/dL (8-23); Carbon Dioxide 21 mmol/L (22-29); Chloride 100 mmol/L (98-107); Creatinine Clr Calc Pharmacy 11.8684; Globulin 3.1 g/dL (1.3-4.6); Glucose 121 mg/dL (65-115); Iron 92 ug/dL (59-158); Magnesium 1.8 mg/dL (1.7-2.3); Osmolality Calculated 299 mOsm/kg (285-295); Percent Saturation 57.5 % (20-50); Potassium 4.8 mmol/L (3.5-5.1); Sodium 136 mmol/L (136-145); Total Bilirubin 0.3 mg/dL (0.15-1.2); Total Iron Binding Capacity 160 mcg/dl; Total Protein 6.6 g/dL (6.6-8.7); Unsaturated Iron Binding 68 ug/dL (112-347)
[2024-09-09 03:46] LABS: Calcium 10.1 mg/dL (8.5-10.5); Parathyroid Hormone 162.7 pg/mL (15-65)
[2024-09-09] MEDS: aspirin 81 mg EC Tablet PO (05:08)
[2024-09-09] MEDS: pantoprazole DR 40 mg Tablet PO (05:08)
[2024-09-09 06:28] LABS: Glucose Point of Care 252 mg/dL (70-110)
[2024-09-09] MEDS: sevelamer 800 mg Tablet 2400 MG PO (08:26)
[2024-09-09] MEDS: lipase-protease-amylase Capsule 3 EACH PO ×3 (08:27→18:41)
[2024-09-09] MEDS: insulin lispro 100 unit/1 mL SUBCUT ×2 (08:27→18:41)
[2024-09-09] MEDS: heparin 5,000 unit/mL INJ 1 mL 5000 UNIT SUBCUT ×2 (08:27→21:56)
[2024-09-09] MEDS: b-complex-vitamin c Tablet 1 EACH PO (08:27)
--- NOTE | 2024-09-09 09:17 | PC.CHAP ---
Pastoral Care Encounter/Spiritual Assessment Type of Contact [] Declined physical design engineer visit [] Patient/Family/Request visit [] Outpatient visit [] Follow-up visit [] Physician referral [] Code/Alert [x] Routine visit [] Staff referral [] Actively dying [] Patient sleeping [] Family support [] [] Out of room [] Palliative care [] [] Receiving care in room [] Pre-surgical visit [] Trauma [] Long length of stay [] ICU visit [] Other: Relational/Emotional Strength [] Patient feels connected with others/family/visitors/staff [] Distress [] Loneliness/isolation [] Abandonment Spirituality of Patient [x] Person of Charis [] Attends Taoism of their Charis [x] Believes in Prayer [] Reads Bible or Hinduism materials [] There are Spiritual issues to be addressed Swimming Pool Servicer Interventions [x] Prayer [x] Active listening [] Non-anxious presence [] Spiritual/emotional support [] Crisis/trauma care [] Spiritual counseling [] Bereavement support [] Provided bereavement packet [x] Provided Bible/devotional materials [] Provided toy/stuffed animal, coloring book to patient or family member [] Provided Communion [] Anointing/Bland [] Salvation [x] Completed spiritual assessment [] Other: Impact on Illness or Injury [] Angry [] Fearful [] Anxious [] Often cries [] Exhaustion [] Unable to work [] Unable to attend scientology [] Unable to walk/stand [] Unable to read [] Unable to drive [] Unable to eat/drink [] Unable to sleep [] Unable to be with family [] Patient intubated [] Other: Summary Time spent with patient 5 min
--- NOTE | 2024-09-09 11:01 | P.PN_ITS ---
Subjective 2 Subjective: seen and examined. no n/v/f/c/valentino. /+CP, rib pain, and SOB Medications: Reviewed: Yes Medication Review Details: Current Medications Acetaminophen (Acetaminophen 500 Mg Tablet) 500 mg PO Q4H PRN PRN Reason: fever Albuterol/Ipratropium (Ipratropium-Albuterol 3 Ml Neb) 3 ml INHALATION Q6H PRN PRN Reason: SHORTNESS OF BREATH Allopurinol (Allopurinol 100 Mg Tablet) 200 mg PO QPM [facility] Last Admin: 09/08/24 18:08 Dose: 200 mg Lipase/Protease/Amylase (Rlkhoq-Rrrlzzbt-Wcqxlsn Capsule) 3 each PO TIDWM [facility] Last Admin: 09/09/24 08:27 Dose: 3 each Aspirin (Aspirin 81 Mg Ec Tablet) 81 mg PO QAM [facility] Last Admin: 09/09/24 05:08 Dose: 81 mg Ceftriaxone Sodium (Ceftriaxone 1,000 Mg Sdv) 1,000 mg IVP Q24H [facility]; Protocol Last Admin: 09/08/24 11:38 Dose: 1,000 mg Clopidogrel Bisulfate (Clopidogrel 75 Mg Tablet) 75 mg PO DAILY@12 [facility] Last Admin: 09/08/24 11:38 Dose: 75 mg Colchicine (Colchicine 0.6 Mg Tablet) 0.3 mg PO TuFr [facility] Glucagon (Glucagon 1 Mg/Ml Kit 1 Ml) 1 mg IM ONCE PRN; Protocol PRN Reason: Adult Acute Hypoglycemia Nursing Prot. Heparin Sodium (Porcine) (Heparin 5,000 Unit/Ml Inj 1 Ml) 5,000 unit SUBCUT Q12H [facility] Last Admin: 09/09/24 08:27 Dose: 5,000 unit Dextrose (D5w) 500 mls @ 0 mls/hr IV ONCE PRN; Protocol PRN Reason: Adult Acute Hypoglycemia Prot Dextrose (D10w) 125 mls @ 750 mls/hr IV PRN PRN; Protocol PRN Reason: Adult Acute Hypoglycemia Nursing Protocol Dextrose (D10w) 250 mls @ 1,000 mls/hr IV PRN PRN; Protocol PRN Reason: Adult Acute Hypoglycemia Nursing Protocol Insulin Human Lispro (Insulin Lispro 100 Unit/1 Ml) 0 unit SUBCUT TIDWM [facility]; Protocol Last Admin: 09/09/24 08:27 Dose: 8 unit Morphine Sulfate (Morphine Ir 15 Mg Tablet) 15 mg PO Q6H PRN PRN Reason: MODERATE PAIN Multivitamins (G-Yglsgvh-Sdeppts C Tablet) 1 each PO DAILY [facility] Last Admin: 09/09/24 08:27 Dose: 1 each Ondansetron HCl (Ondansetron 2 Mg/Ml Sdv 2 Ml) 4 mg IVP Q6H PRN PRN Reason: NAUSEA AND VOMITING Pantoprazole Sodium (Pantoprazole Dr 40 Mg Tablet) 40 mg PO QAM [facility] Last Admin: 09/09/24 05:08 Dose: 40 mg Sevelamer Carbonate (Sevelamer 800 Mg Tablet) 2,400 mg PO TIDWM [facility] Last Admin: 09/09/24 08:26 Dose: 2,400 mg Tamsulosin HCl (Tamsulosin 0.4 Mg Capsule) 0.8 mg PO QPM [facility] Last Admin: 09/08/24 18:09 Dose: 0.8 mg Vitals/I&O/Wt Last Vital Signs Temp 98 F 09/09/24 07:58 Pulse 107 H 09/09/24 10:00 Resp 18 09/09/24 10:00 BP 159/88 09/09/24 07:58 Pulse Ox 94 09/09/24 10:00 O2 Del Method Room Air 09/09/24 10:00 09/08/24 09/09/24 09/09/24 22:59 06:59 14:59 Intake Total 320 / 640 480 / 480 Balance 320 / 640 480 / 480 Weight last 48 hrs Weight 75.251 kg Weight 75.041 kg Weight 76.345 kg Physical Exam 2 Narrative: VS noted sitting up in bed, NARD neck supple lungs - dull left base heart reg, + s1, s2 abd soft, nt, ns, + bs ext LUE AVF w/ thrill and bruit no edema neuro- a,a, o x 3, moves all ext Data 09/09/24 02:47 09/09/24 02:47 Micro: Microbiology 09/07/24 06:55 Blood Culture - Preliminary Blood NEGATIVE TO DATE 09/07/24 06:57 Blood Culture - Preliminary Blood NEGATIVE TO DATE A&P Assessment and plan (1) End-stage renal disease on hemodialysis: 1. ESRD- HD MWF. hD today 2. rib fractures 3. UTI- await results of urine cx. leukocytosis can also be from rib fx 4. anemia- hgb okay for ESRD. high iron sat- no iv iron 5. calcium 10- normal phos and pth 163- no need for vit d analouge lower sevelamer dose 6. htn from pain-improving- monitor w/ HD 7. can d/c sodium bicarbonate as he is on HD seen and examined w/ aide of A/V equipment and a nurse pt consents to hD and telehealth. Plan see above Attestations 2 Medical Necessity Statement*: per medicine Time Spent in Patient Care: 16 - 35 minutes (>than 50% of time sp ent in counselling and/or direct pt care on unit) . Coding Level of Care Code Acute Code for Chg Fwd Diagnoses End-stage renal disease on hemodialysis N18.6; Z99.2
[2024-09-09 11:38] LABS: Glucose Point of Care 163 mg/dL (70-110)
[2024-09-09] MEDS: clopidogrel 75 mg Tablet PO (14:38)
[2024-09-09] MEDS: sevelamer 800 mg Tablet 1600 MG PO ×2 (14:38→18:41)
[2024-09-09] MEDS: cefTRIAXone 1,000 mg SDV 1000 MG IVP (14:39)
[2024-09-09 14:49] LABS: Glucose Point of Care 106 mg/dL (70-110)
[2024-09-09 16:35] LABS: Glucose Point of Care 247 mg/dL (70-110)
--- NOTE | 2024-09-09 17:08 | P.PN_ITS ---
Subjective 2 Subjective: Leukocytosis is improving. Still pending urine culture. He is afebrile. Underwent hemodialysis today. Transient hypotension with blood pressure 90/54 post dialysis. Currently improved at the time of this assessment to 136/80. Tachycardic today, he has not received carvedilol. Medications: Reviewed: Yes Medication Review Details: Current Medications Acetaminophen (Acetaminophen 500 Mg Tablet) 500 mg PO Q4H PRN PRN Reason: fever Albuterol/Ipratropium (Ipratropium-Albuterol 3 Ml Neb) 3 ml INHALATION Q6H PRN PRN Reason: SHORTNESS OF BREATH Allopurinol (Allopurinol 100 Mg Tablet) 200 mg PO QPM [facility] Last Admin: 09/08/24 18:08 Dose: 200 mg Lipase/Protease/Amylase (Temrev-Mfmtnffx-Ftfblky Capsule) 3 each PO TIDWM [facility] Last Admin: 09/09/24 08:27 Dose: 3 each Aspirin (Aspirin 81 Mg Ec Tablet) 81 mg PO QAM [facility] Last Admin: 09/09/24 05:08 Dose: 81 mg Ceftriaxone Sodium (Ceftriaxone 1,000 Mg Sdv) 1,000 mg IVP Q24H [facility]; Protocol Last Admin: 09/08/24 11:38 Dose: 1,000 mg Clopidogrel Bisulfate (Clopidogrel 75 Mg Tablet) 75 mg PO DAILY@12 [facility] Last Admin: 09/08/24 11:38 Dose: 75 mg Colchicine (Colchicine 0.6 Mg Tablet) 0.3 mg PO TuFr [facility] Glucagon (Glucagon 1 Mg/Ml Kit 1 Ml) 1 mg IM ONCE PRN; Protocol PRN Reason: Adult Acute Hypoglycemia Nursing Prot. Heparin Sodium (Porcine) (Heparin 5,000 Unit/Ml Inj 1 Ml) 5,000 unit SUBCUT Q12H [facility] Last Admin: 09/09/24 08:27 Dose: 5,000 unit Dextrose (D5w) 500 mls @ 0 mls/hr IV ONCE PRN; Protocol PRN Reason: Adult Acute Hypoglycemia Prot Dextrose (D10w) 125 mls @ 750 mls/hr IV PRN PRN; Protocol PRN Reason: Adult Acute Hypoglycemia Nursing Protocol Dextrose (D10w) 250 mls @ 1,000 mls/hr IV PRN PRN; Protocol PRN Reason: Adult Acute Hypoglycemia Nursing Protocol Insulin Human Lispro (Insulin Lispro 100 Unit/1 Ml) 0 unit SUBCUT TIDWM [facility]; Protocol Last Admin: 09/09/24 08:27 Dose: 8 unit Morphine Sulfate (Morphine Ir 15 Mg Tablet) 15 mg PO Q6H PRN PRN Reason: MODERATE PAIN Multivitamins (O-Dxarudg-Zlufqht C Tablet) 1 each PO DAILY [facility] Last Admin: 09/09/24 08:27 Dose: 1 each Ondansetron HCl (Ondansetron 2 Mg/Ml Sdv 2 Ml) 4 mg IVP Q6H PRN PRN Reason: NAUSEA AND VOMITING Pantoprazole Sodium (Pantoprazole Dr 40 Mg Tablet) 40 mg PO QAM [facility] Last Admin: 09/09/24 05:08 Dose: 40 mg Sevelamer Carbonate (Sevelamer 800 Mg Tablet) 2,400 mg PO TIDWM [facility] Last Admin: 09/09/24 08:26 Dose: 2,400 mg Tamsulosin HCl (Tamsulosin 0.4 Mg Capsule) 0.8 mg PO QPM [facility] Last Admin: 09/08/24 18:09 Dose: 0.8 mg Vitals/I&O/Wt Last Vital Signs Temp 97.6 F 09/09/24 15:46 Pulse 107 H 09/09/24 15:46 Resp 18 09/09/24 15:46 BP 90/54 09/09/24 15:46 Pulse Ox 96 09/09/24 15:46 O2 Del Method Room Air 09/09/24 15:46 09/09/24 09/09/24 09/09/24 06:59 14:59 22:59 Intake Total 960 / 960 Balance 960 / 960 Weight last 48 hrs Weight 75.251 kg Weight 75.041 kg Physical Exam 2 Narrative: General: No acute distress, AO x3 HEENT: PERRLA, pupils bilaterally equal and reactive, pallors not present Chest: Normal vesicular breath sounds, no added sounds, equal good air entry bilaterally CVS: S1-S2 regular, no murmurs, no tachycardia, no gallops, no rubs Abdomen: Soft, nontender, no organomegaly, bowel sounds present Neuro: No focal deficits, no facial deformity, AO x3, power 5/5 in all limbs Data 09/09/24 02:47 09/09/24 02:47 A&P Assessment and plan (1) Diabetes mellitus: (2) End-stage renal disease on hemodialysis: (3) Acute pyelonephritis: (4) Left rib fracture: Plan UTI/pyelonephritis I will start patient on ceftriaxone discontinue Zosyn Afebrile, no active nausea vomiting Patient endorsed to episode of vomiting last 48 hours stating that he does get random episodes of emesis without any association with food no previous history of gastroparesis no cyclical vomiting No active fever Patient still makes urine Monday/end-stage renal disease Will consult nephrology for Monday if patient ends up staying until then 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 Patient is describing his falls related to dizziness and he describes dizziness as room spinning around him Monitor for BPPV, vestibular rehab? Renal diet/consistent carb Insulin sliding scale DVT prophylaxis: Heparin 09/08/2024 -White count trended down to 14,000. ? Patient on dialysis Monday. ? Vomiting has subsided. IV fluids were given initially. ? Physical therapy has evaluated the patient. Home recommended at discharge ? Urine culture is still pending. ? May be discharged home once urine culture results. September 09, 2024. 74-year-old male with end-stage renal disease on hemodialysis, history of recurrent falls, diabetes with neuropathy, on outpatient physical therapy until recently. Outpatient notes reviewed most recently from September 05, 2024 where there has been no mention of increasing falls at home. He has been feeling increasingly weak and deconditioned at home. His reports that it has been very difficult to take care of him as he needs and assistance at home. OT eval in addition to PT. Add prn meclizine trial for dizziness. Currently presenting with a fall resulting in nondisplaced fractures of the left eighth ninth and 10th ribs. No pneumothorax. Chest x-ray shows small left pleural effusion with left lower lobe atelectasis. Encourage patient to use incentive spirometer to avoid development of pneumonia. Additionally noted L3 fracture which is likely to be the cause of pain affecting his back. WBC count trending down to 11,000. Urine analysis with 2+ leukocyte Estrace, negative nitrate, greater than 100 WBCs. Awaiting urine culture. Patient's reports a previous history of ? Staph infection though unable to specify which culture had isolated the Staph aureus. He was given this diagnosis at the time he was admitted for COVID and pneumonia sometime in [address] [facility]. She reports that he needed a defibrillator to be placed at the same admission therefore highly likely that this was at least not a Staph aureus bloodstream infection. Currently blood cultures are negative. Continue ceftriaxone 1 g IV every 24 hours empirically while awaiting urine cultures. Resume home dose of carvedilol, tachycardia likely related to not having received beta-blockers. transient hyp hypotension postdialysis today. Currently resolved. Attestations 2 Medical Necessity Statement*: awaiting urine cx for discharge planning Coding Level of Care Code Acute Code for g Fwd Diagnoses Diabetes mellitus E11.9 End-stage renal disease on hemodialysis N18.6; Z99.2 Acute pyelonephritis N10 Left rib fracture S22.32XA
[2024-09-09] MEDS: carvedilol 12.5 mg Tablet PO (18:41)
[2024-09-09] MEDS: atorvastatin 40 mg Tablet PO (18:41)
[2024-09-09] MEDS: tamsulosin 0.4 mg Capsule 0.8 MG PO (18:41)
[2024-09-09] MEDS: allopurinol 100 mg Tablet 200 MG PO (18:41)
[2024-09-09 20:58] LABS: Glucose Point of Care 212 mg/dL (70-110)
[2024-09-10] VITALS (9 sets, daily range): BP systolic 96–165; BP diastolic 62–87; PULSE 84–105; RESP 16–18; TEMP 36.4–36.8; O2SAT 95–98
[2024-09-10] MEDS: buPROPion XL (24 HR) 300 mg Tablet PO (05:51)
[2024-09-10] MEDS: pantoprazole DR 40 mg Tablet PO (05:51)
[2024-09-10] MEDS: aspirin 81 mg EC Tablet PO (05:51)
[2024-09-10 06:27] LABS: Basophils # 0.1 10^3/uL (0.0-0.1); Basophils % 0.7 %; Eosinophils # 0.3 10^3/uL (0.0-0.8); Eosinophils % 2.6 %; Lymphocytes # 1.4 10^3/uL (0.8-4.8); Lymphocytes % 11.4 %; Mean Corpuscular HGB Conc 31.1 g/dL (30-55); Mean Corpuscular Hemoglobin 29.5 pg (27-33); Mean Corpuscular Volume 94.6 fl (82-101); Monocytes # 0.7 10^3/uL (0.2-0.9); Monocytes % 5.6 %; Neutrophils # 9.49 10^3/uL (1.8-7.7); Neutrophils % 79.2 %; Nucleated Red Blood Cells % 0 %; Platelet Count 196 10^3/cmm (157-399); Red Cell Distribution Width 15.7 % (12.1-15.1); White Blood Count 11.97 10^3/uL (3.29-11.43)
[2024-09-10 06:50] LABS: Estmated Average Glucose 140; Hemoglobin A1C 6.5 % (4.0-6.0)
[2024-09-10 06:51] LABS: Alanine Aminotransferase 12 U/L (0-41); Albumin Level 3.8 g/dL (3.5-5.2); Alkaline Phosphatase 107 U/L (40-130); Anion Gap 21.6 (5-19); Aspartate Amino Transferase 12 U/L (0-40); Blood Urea Nitrogen 38 mg/dL (8-23); Calcium 9.8 mg/dL (8.5-10.5); Carbon Dioxide 23 mmol/L (22-29); Chloride 101 mmol/L (98-107); Creatinine Clr Calc Pharmacy 14.2499; Globulin 2.9 g/dL (1.3-4.6); Glucose 194 mg/dL (65-115); Osmolality Calculated 306 mOsm/kg (285-295); Phosphorus 2.8 mg/dL (2.5-4.5); Potassium 4.6 mmol/L (3.5-5.1); Sodium 141 mmol/L (136-145); Total Bilirubin 0.5 mg/dL (0.15-1.2); Total Protein 6.7 g/dL (6.6-8.7)
[2024-09-10 06:57] LABS: Creatine Phosphokinase 51 U/L (39-308)
[2024-09-10 07:07] LABS: Troponin T (5th) Once 111 ng/L (0-15)
--- NOTE | 2024-09-10 07:40 | PM.PN ---
Subjective Subjective: still sob w/ minimal exertion. limited fluid removl yesterday on dialysis as pt had hypotension. no n/v/f/c/valentino.d Medications: Reviewed: Yes Medication Review Details: Current Medications Acetaminophen (Acetaminophen 500 Mg Tablet) 500 mg PO Q4H PRN PRN Reason: fever Albuterol/Ipratropium (Ipratropium-Albuterol 3 Ml Neb) 3 ml INHALATION Q6H PRN PRN Reason: SHORTNESS OF BREATH Allopurinol (Allopurinol 100 Mg Tablet) 200 mg PO QPM [facility] Last Admin: 09/09/24 18:41 Dose: 200 mg Lipase/Protease/Amylase (Ijulbl-Nlyrpbts-Hiodzfm Capsule) 3 each PO TIDWM [facility] Last Admin: 09/09/24 18:41 Dose: 3 each Aspirin (Aspirin 81 Mg Ec Tablet) 81 mg PO QAM [facility] Last Admin: 09/10/24 05:51 Dose: 81 mg Atorvastatin Calcium (Atorvastatin 40 Mg Tablet) 40 mg PO QPM [facility] Last Admin: 09/09/24 18:41 Dose: 40 mg Bupropion HCl (Bupropion Xl (24 Hr) 300 Mg Tablet) 300 mg PO QAM [facility] Last Admin: 09/10/24 05:51 Dose: 300 mg Carvedilol (Carvedilol 12.5 Mg Tablet) 12.5 mg PO BID [facility] Last Admin: 09/09/24 18:41 Dose: 12.5 mg Ceftriaxone Sodium (Ceftriaxone 1,000 Mg Sdv) 1,000 mg IVP Q24H [facility]; Protocol Last Admin: 09/09/24 14:39 Dose: 1,000 mg Clopidogrel Bisulfate (Clopidogrel 75 Mg Tablet) 75 mg PO DAILY@12 [facility] Last Admin: 09/09/24 14:38 Dose: 75 mg Colchicine (Colchicine 0.6 Mg Tablet) 0.3 mg PO TuFr [facility] Glucagon (Glucagon 1 Mg/Ml Kit 1 Ml) 1 mg IM ONCE PRN; Protocol PRN Reason: Adult Acute Hypoglycemia Nursing Prot. Heparin Sodium (Porcine) (Heparin 5,000 Unit/Ml Inj 1 Ml) 5,000 unit SUBCUT Q12H [facility] Last Admin: 09/09/24 21:56 Dose: 5,000 unit Dextrose (D5w) 500 mls @ 0 mls/hr IV ONCE PRN; Protocol PRN Reason: Adult Acute Hypoglycemia Prot Dextrose (D10w) 125 mls @ 750 mls/hr IV PRN PRN; Protocol PRN Reason: Adult Acute Hypoglycemia Nursing Protocol Dextrose (D10w) 250 mls @ 1,000 mls/hr IV PRN PRN; Protocol PRN Reason: Adult Acute Hypoglycemia Nursing Protocol Insulin Human Lispro (Insulin Lispro 100 Unit/1 Ml) 0 unit SUBCUT TIDWM [facility]; Protocol Last Admin: 09/09/24 18:41 Dose: 8 unit Meclizine HCl (Meclizine 25 Mg Tablet) 25 mg PO TID PRN PRN Reason: DIZZINESS Multivitamins (P-Vtwmhsj-Pclnehk C Tablet) 1 each PO DAILY [facility] Last Admin: 09/09/24 08:27 Dose: 1 each Ondansetron HCl (Ondansetron 2 Mg/Ml Sdv 2 Ml) 4 mg IVP Q6H PRN PRN Reason: NAUSEA AND VOMITING Pantoprazole Sodium (Pantoprazole Dr 40 Mg Tablet) 40 mg PO QAM [facility] Last Admin: 09/10/24 05:51 Dose: 40 mg Sevelamer Carbonate (Sevelamer 800 Mg Tablet) 1,600 mg PO TIDWM [facility] Last Admin: 09/09/24 18:41 Dose: 1,600 mg Tamsulosin HCl (Tamsulosin 0.4 Mg Capsule) 0.8 mg PO QPM [facility] Last Admin: 09/09/24 18:41 Dose: 0.8 mg Vitals/I&O/Wt Last Vital Signs Temp 98.2 F 09/10/24 04:00 Pulse 93 09/10/24 06:00 Resp 17 09/10/24 04:00 BP 165/87 09/10/24 04:00 Pulse Ox 95 09/10/24 04:00 O2 Del Method Room Air 09/10/24 04:00 09/09/24 09/10/24 09/10/24 22:59 06:59 14:59 Intake Total 788 / 1748 0 / 1748 Output Total 1247 / 1247 75 / 1322 Balance -459 / 501 -75 / 426 Weight last 48 hrs Weight 74.48 kg Weight 73.482 kg Weight 75.251 kg Physical Exam Narrative: VS noted sitting up in bed, SOB w/minimal activity neck supple lungs - dull left base, wheezes heart reg, + s1, s2 abd soft, nt, ns, + bs ext LUE AVF w/ thrill and bruit no edema neuro- a,a, o x 3, moves all ext Data 09/10/24 06:06 09/10/24 06:06 A&P Assessment and plan (1) End-stage renal disease on hemodialysis: 1. ESRD- HD MWF. hD tomorrow 2. rib fractures 3. UTI- provetella and e coli. leukocytosis can also be from rib fx 4. anemia- hgb 10.9 okay for ESRD. high iron sat- no iv iron 5. calcium 10- normal phos and pth 163- no need for vit d analouge lowered sevelamer dose 6. htn from pain-improving- monitor w/ HD 7. sob- give lasix on non hd days seen and examined w/ aide of A/V equipment and a nurse pt consents to hD and telehealth. Plan see above Attestations Medical Necessity Statement*: per medical doctor Time Spent in Patient Care: 16 - 35 minutes (>than 50% of time spent in counselling and/or direct pt care on unit). Coding Level of Care Code Acute Code for Chg Fwd Diagnoses End-stage renal disease on hemodialysis N18.6; Z99.2
[2024-09-10] MEDS: lipase-protease-amylase Capsule 3 EACH PO ×3 (08:23→17:42)
[2024-09-10] MEDS: sevelamer 800 mg Tablet 1600 MG PO ×3 (08:23→17:43)
[2024-09-10] MEDS: heparin 5,000 unit/mL INJ 1 mL 5000 UNIT SUBCUT ×2 (08:24→20:39)
[2024-09-10] MEDS: b-complex-vitamin c Tablet 1 EACH PO (08:24)
[2024-09-10] MEDS: FUROsemide 10 mg/mL SDV 10mL 60 MG IVP (08:24)
[2024-09-10] MEDS: colchicine 0.6 mg Tablet 0.3 MG PO (08:24)
[2024-09-10 08:42] LABS: Troponin 5 2HR Delta -2.4 ABS# (0-10)
[2024-09-10 08:45] LABS: Troponin 5 2HR 108.6 ng/L (0-15)
--- NOTE | 2024-09-10 10:33 | ECG_ITS ---
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 Measurements Intervals [place] Rate: 99 P: 60 NH: 146 QRS: 5 QRSD: 101 T: 87 QT: 381 QTc: 491 Interpretive Statements SINUS RHYTHM WITH OCCASIONAL SUPRAVENTRICULAR PREMATURE COMPLEXES NONSPECIFIC ST & T-WAVE ABNORMALITY Compared to ECG 09/07/2024 06:16:07 Prolonged QT interval no longer present T-wave abnormality still present Electronically Signed On 09-10-2024 21:22:27 BRIDGE ATTACHER by Ross Campbell M.D. [email or web address]
[2024-09-10 11:16] LABS: Glucose Point of Care 306 mg/dL (70-110)
[2024-09-10] MEDS: cefTRIAXone 1,000 mg SDV 1000 MG IVP (11:22)
[2024-09-10] MEDS: clopidogrel 75 mg Tablet PO (11:24)
[2024-09-10] MEDS: insulin lispro 100 unit/1 mL SUBCUT ×2 (11:25→17:42)
[2024-09-10 13:14] LABS: Troponin 5 6HR Delta -3.8 ng/L (0-12)
[2024-09-10 13:15] LABS: Troponin 5 6HR 107.2 ng/L (0-15)
--- NOTE | 2024-09-10 13:30 | ECG_ITS ---
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 Measurements Intervals [place] Rate: 96 P: 53 SC: 136 QRS: -8 QRSD: 100 T: 105 QT: 385 QTc: 487 Interpretive Statements SINUS RHYTHM WITH OCCASIONAL SUPRAVENTRICULAR PREMATURE COMPLEXES NONSPECIFIC ST & T-WAVE ABNORMALITY Compared to ECG 09/10/2024 10:33:17 No significant changes Electronically Signed On 09-10-2024 21:17:43 TUBE WRAPPER by Ross Campbell M.D. [email or web address]
--- NOTE | 2024-09-10 15:50 | P.TS_ITS ---
Transfer Summary Providers Date of Admission: 09/10/24 10:38 Date of Discharge/Transfer: 09/10/24 Attending Provider at Admission: José Gan MD Attending Provider at Transfer: Cherry Tatum MD Primary Care Provider: Annmarie Jacobson MD Transfer Plans: Anticipated date of transfer: 09/10/24 . Diagnoses at Discharge Discharge Diagnosis (1) End-stage renal disease on hemodialysis: Status: Acute (2) UTI (urinary tract infection): Status: Acute (3) Left rib fracture: Status: Acute (4) Recurrent falls: Status: Acute (5) Dizziness: Status: Acute (6) Elevated troponin: Status: Acute Reason for Visit Reason for Visit FALL Hospital Course Hospital Course Alonso Delgado is a 74 year old male with history of end-stage renal disease, recurrent falls, diabetes, on outpatient physical therapy, has been suffering from repeated falls and dizziness chronically for many months. He was brought to the emergency room on September 07, 2024 after having sustained a fall at home twice. His reported that he had previously had a stroke with difficulty of gait ever since. He reported feeling lightheaded and dizzy with concern for presyncope. As a result of his most recent fall he suffered left-sided rib fracture. He had leukocytosis upon admission. He had had cystoscopy middle of August. There was concern for cystitis and possibly pyelonephritis therefore he was admitted to the hospital. He was started on treatment empirically with ceftriaxone 1 g IV every 24 hours. Urine culture has resulted today without any significant growth. He received dialysis per schedule Monday. As part of the presyncope evaluation he underwent orthostatic check with very minimal drops in systolic blood pressure with change in position. Uncertain if this contributed to his falls in any significant way. He also underwent an echocardiogram which showed an LVEF of 50%, mild diffuse hypokinesia of the septum, moderate hypokinesia of the basal inferior wall segment. There was mild to moderate concentric LVH and grade 1 diastolic dysfunction. Estimated PASP of 41 mmHg. There are no prior EKGs to compare these results to. Patient has no active chest pain. EKG shows sinus rhythm without acute ST-T wave changes. Baseline troponin checked this morning showed a baseline troponin of 111, at 2 hours at 108 And then 6 hours at 107. No prior troponin numbers available to compare. Pacemaker check was ordered to assess for any underlying arrhythmias that may be contributing to his recurrent falls. This is pending today. Patient reports a history of coronary artery disease, has undergone CABG in . It appears per history that AICD was placed in early 2023. With downtrending troponins , lack of chest pain, do not suspect an ongoing acute coronary syndrome, however cannot rule out a recent cardiac event which may have contributed to the falls. We discussed with him the need to undergo further cardiology evaluation. Patient and his request not to undergo further cardiac evaluation here, instead they would like to be transferred to [facility] where he has his routine cardiology follow-ups for further assessment. Continuing ASA and carvedilol for now. Call was placed to transfer per patient request. He has been accepted for transfer by hospitalist service. Physical Exam Narrative: General: No acute distress, AO x3 HEENT: PERRLA, pupils bilaterally equal and reactive, pallors not present Chest: Normal vesicular breath sounds, no added sounds, equal good air entry bilaterally CVS: S1-S2 regular, no murmurs, no tachycardia, no gallops, no rubs Abdomen: Soft, nontender, no organomegaly, bowel sounds present Neuro: No focal deficits, no facial deformity, AO x3, power 5/5 in all limbs TS Data Studies Completed and Pending Pending at discharge Category Date Time Status Blood Culture Stat Lab 09/07/24 06:57 Results Complete Blood Count w/Auto AM LABS Lab 09/11/24 04:00 Ordered Comprehensive Metabolic Panel AM LABS Lab 09/11/24 04:00 Ordered Comprehensive Metabolic Panel AM LABS Lab 09/11/24 04:00 Ordered Comprehensive Metabolic Panel AM LABS Lab 09/12/24 04:00 Ordered Comprehensive Metabolic Panel AM LABS Lab 09/13/24 04:00 Ordered Magnesium AM LABS Lab 09/11/24 04:00 Ordered Magnesium AM LABS Lab 09/12/24 04:00 Ordered Magnesium AM LABS Lab 09/13/24 04:00 Ordered Phosphorus AM LABS Lab 09/11/24 04:00 Ordered Phosphorus AM LABS Lab 09/11/24 04:00 Ordered Phosphorus AM LABS Lab 09/12/24 04:00 Ordered Phosphorus AM LABS Lab 09/13/24 04:00 Ordered Completed Studies During Hospitalization Category Date Time Status CT lumbar spine wo con* [id number] Stat Cat Scan 09/07/24 06:[address] thoracic spin wo con* [id number] Stat Cat Scan 09/07/24 06:10 Completed XR chest 2V* [id number] Stat Exams 09/07/24 05:06 Completed XR elbow RT min 3V* [id number] Stat Exams 09/07/24 06:07 Completed XR ribs LT 2V* [id number] Stat Exams 09/07/24 06:07 Completed CV. echo complete* [id number] Routine Ultrasound 09/07/24 09:22 Completed Laboratory Last Values WBC 11.97 10^3/uL (3.29-11.43) H 09/10/24 06:06 RBC 3.70 10^6/uL (3.85-5.65) L 09/10/24 06:06 Hgb 10.90 g/dL (11.27-16.99) L 09/10/24 06:06 Hct 35.0 % (37-53) L 09/10/24 06:06 MCV 94.6 fl (82-101) 09/10/24 06:06 MCH 29.5 pg (27-33) 09/10/24 06:06 MCHC 31.1 g/dL (30-55) 09/10/24 06:06 RDW 15.7 % (12.1-15.1) H 09/10/24 06:06 Plt Count 196 10^3/cmm (157-399) 09/10/24 06:06 MPV 10.0 fL (7.4-10.4) 09/10/24 06:06 Neut % (Auto) 79.2 % 09/10/24 06:06 Lymph % (Auto) 11.4 % 09/10/24 06:06 Ward % (Auto) 5.6 % 09/10/24 06:06 Eos % (Auto) 2.6 % 09/10/24 06:06 Baso % (Auto) 0.7 % 09/10/24 06:06 Neut # (Auto) 9.49 10^3/uL (1.8-7.7) H 09/10/24 06:06 Lymph # (Auto) 1.4 10^3/uL (0.8-4.8) 09/10/24 06:06 Ward # (Auto) 0.7 10^3/uL (0.2-0.9) 09/10/24 06:06 Eos # (Auto) 0.3 10^3/uL (0.0-0.8) 09/10/24 06:06 Baso # (Auto) 0.1 10^3/uL (0.0-0.1) 09/10/24 06:06 Nucleated RBC % (auto) 0 % 09/10/24 06:06 Nucleated RBCs # 0.0 /100WBC 09/10/24 06:06 Sodium 141 mmol/L (136-145) 09/10/24 06:06 Potassium 4.6 mmol/L (3.5-5.1) 09/10/24 06:06 Chloride 101 mmol/L (98-107) 09/10/24 06:06 Carbon Dioxide 23 mmol/L (22-29) 09/10/24 06:06 Anion Gap 21.6 (5-19) H 09/10/24 06:06 BUN 38 mg/dL (8-23) H 09/10/24 06:06 Creatinine 4.4 mg/dL (0.7-1.2) H 09/10/24 06:06 GFR Calculation Not Reportable 09/10/24 06:06 Glucose 194 mg/dL (65-115) H 09/10/24 06:06 POC Glucose 306 mg/dL (70-110) H 09/10/24 11:12 Estimat Average Glucose 140 09/10/24 06:06 Hemoglobin A1c 6.5 % (4.0-6.0) H 09/10/24 06:06 Calculated Osmolality 306 mOsm/kg (285-295) H 09/10/24 06:06 Lactic Acid 1.4 mmol/L (0.5-2.2) 09/07/24 06:55 Uric Acid 4.1 mg/dL (3.4-7.0) 09/08/24 21:40 Calcium 9.8 mg/dL (8.5-10.5) 09/10/24 06:06 Phosphorus 2.8 mg/dL (2.5-4.5) 09/10/24 06:06 Magnesium 1.8 mg/dL (1.7-2.3) 09/09/24 02:47 Iron 92 ug/dL (59-158) 09/09/24 02:47 TIBC 160 mcg/dl 09/09/24 02:47 % Saturation 57.5 % (20-50) H 09/09/24 02:47 Unsat Iron Binding 68 ug/dL (112-347) L 09/09/24 02:47 Total Bilirubin 0.5 mg/dL (0.15-1.2) 09/10/24 06:06 AST 12 U/L (0-40) 09/10/24 06:06 ALT 12 U/L (0-41) 09/10/24 06:06 Alkaline Phosphatase 107 U/L (40-130) 09/10/24 06:06 Creatine Kinase 51 U/L (39-308) 09/10/24 06:06 Troponin T 5th Gen ng/L 111 ng/L (0-15) H* 09/10/24 06:06 Troponin T 120 Minute 108.6 ng/L (0-15) H 09/10/24 08:00 Delta Troponin T -2.4 ABS# (0-10) L 09/10/24 08:00 Troponin T Hi Sens 6Hr 107.2 ng/L (0-15) H 09/10/24 12:20 Troponin T Hi Sens 6Hr Delta -3.8 ng/L (0-12) L 09/10/24 12:20 Total Protein 6.7 g/dL (6.6-8.7) 09/10/24 06:06 Albumin 3.8 g/dL (3.5-5.2) 09/10/24 06:06 Globulin 2.9 g/dL (1.3-4.6) 09/10/24 06:06 Vitamin B12 864 pg/mL (232-1245) 09/07/24 03:23 PTH Intact 162.7 pg/mL (15-65) H 09/09/24 02:47 Calcium (PTH Intact) 10.1 mg/dL (8.5-10.5) 09/09/24 02:47 Urine Color Yellow (Yellow) 09/07/24 05:42 Urine Appearance Turbid (CLEAR) A 09/07/24 05:42 Urine pH >=9.0 (5-7) A 09/07/24 05:42 Ur Specific [place] 1.011 (1.005-1.030) 09/07/24 05:42 Urine Protein 2+ (Negative) A 09/07/24 05:42 Urine Glucose (UA) Negative (Normal) 09/07/24 05:42 Urine Ketones Negative (Negative) 09/07/24 05:42 Urine Blood Negative (Negative) 09/07/24 05:42 Urine Nitrate Negative (Negative) 09/07/24 05:42 Urine Bilirubin Negative (Negative) 09/07/24 05:42 Urine Urobilinogen 0.2 mg/dL (Negative) 09/07/24 05:42 Ur Leukocyte Esterase 2+ (Negative) A 09/07/24 05:42 Urine RBC 0-2 /hpf (0-2) 09/07/24 05:42 Urine WBC >100 /hpf (0-5) H 09/07/24 05:42 Ur Squamous Epith Cells 0-5 /hpf (0-5) 09/07/24 05:42 Amorphous Sediment Not Reportable 09/07/24 05:42 Urine Bacteria Exceeds /hpf (NONE) 09/07/24 05:42 Hyaline Casts 1.21 /lpf 09/07/24 05:42 Hep Bs Antigen Non-reactive (Nonreactive) 09/08/24 21:40 Hep Bs Antibody 350.0 (11.5-1000) 09/08/24 21:40 Hepatitis C Antibody Non-reactive (Nonreactive) 09/08/24 21:40 Radiology Impressions Chest X-Ray 09/07/24 05:06 IMPRESSION: 1. Small left pleural effusion with left lower lobe atelectasis. 2. Suspicion of a nondisplaced fracture of the left 8th rib. Elbow X-Ray 09/07/24 06:07 IMPRESSION: No acute fracture or dislocation. Ribs X-Ray 09/07/24 06:07 IMPRESSION: Nondisplaced fractures of the left 8th, 9th and 10th ribs. No pneumothorax. Lumbar Spine CT 09/07/24 06:10 IMPRESSION: No acute fracture or dislocation. COMMENTS: Consistent with the [employer]'s Incidental Findings Committee white paper (J Am Isauro Radiol 2018): Any incidental renal lesion less than 1 cm or classified as too small to characterize, or any incidental cystic renal lesion characterized as simple-appearing, is likely benign. No follow-up imaging is recommended for these lesions per consensus recommendations based on imaging criteria. Thoracic Spine CT 09/07/24 06:10 IMPRESSION: 1. Nondisplaced fracture of the posterior arches of the left 10th, 11th and 12th ribs. 2. Small left pleural effusion with left lower lobe atelectasis. 3. Age indeterminate mild compression fracture of the T3 vertebral body to be correlated with point tenderness. Recent Clincial Data Last Vital Signs Temp 97.5 F L 09/10/24 10:53 Pulse 96 09/10/24 10:53 Resp 16 09/10/24 08:50 BP 154/83 09/10/24 10:53 Pulse Ox 95 09/10/24 10:53 O2 Del Method Room Air 09/10/24 08:50 Vital Signs Temp Pulse Resp BP Pulse Ox O2 Del Method 09/10/24 10:53 97.5 F L 96 154/83 95 09/10/24 08:50 88 16 95 Room Air 09/10/24 08:00 97.5 F L 95 96/62 96 09/10/24 06:00 93 09/10/24 04:00 98.2 F 84 17 165/87 95 Room Air Intake & Output/Weight 09/08/24 09/09/24 09/10/24 09/11/24 06:59 06:59 06:59 06:59 Intake Total 910 / 910 640 / 640 1748 / 1748 720 / 720 Output Total 1150 / 1150 1322 / 1322 Balance -240 / -240 640 / 640 426 / 426 720 / 720 Weight 75.041 kg 75.251 kg 74.48 kg Vitals Last Vital Signs Temp 97.5 F L 09/10/24 10:53 Pulse 96 09/10/24 10:53 Resp 16 09/10/24 08:50 BP 154/83 09/10/24 10:53 Pulse Ox 95 09/10/24 10:53 O2 Del Method Room Air 09/10/24 08:50 TS Medications Medications Acetaminophen (Acetaminophen 500 Mg Tablet) 500 mg PO Q4H PRN PRN Reason: fever Albuterol/Ipratropium (Ipratropium-Albuterol 3 Ml Neb) 3 ml INHALATION Q6H PRN PRN Reason: SHORTNESS OF BREATH Allopurinol (Allopurinol 100 Mg Tablet) 200 mg PO QPM [facility] Last Admin: 09/09/24 18:41 Dose: 200 mg Lipase/Protease/Amylase (Lldtzc-Vdisqjym-Icjsrtb Capsule) 3 each PO TIDWM [facility] Last Admin: 09/10/24 11:31 Dose: 3 each Aspirin (Aspirin 81 Mg Ec Tablet) 81 mg PO QAM [facility] Last Admin: 09/10/24 05:51 Dose: 81 mg Atorvastatin Calcium (Atorvastatin 40 Mg Tablet) 40 mg PO QPM [facility] Last Admin: 09/09/24 18:41 Dose: 40 mg Bupropion HCl (Bupropion Xl (24 Hr) 300 Mg Tablet) 300 mg PO QAM [facility] Last Admin: 09/10/24 05:51 Dose: 300 mg Carvedilol (Carvedilol 12.5 Mg Tablet) 6.25 mg PO BID [facility] Ceftriaxone Sodium (Ceftriaxone 1,000 Mg Sdv) 1,000 mg IVP Q24H [facility]; Protocol Last Admin: 09/10/24 11:22 Dose: 1,000 mg Clopidogrel Bisulfate (Clopidogrel 75 Mg Tablet) 75 mg PO DAILY@12 [facility] Last Admin: 09/10/24 11:24 Dose: 75 mg Colchicine (Colchicine 0.6 Mg Tablet) 0.3 mg PO TuFr [facility] Last Admin: 09/10/24 08:24 Dose: 0.3 mg Glucagon (Glucagon 1 Mg/Ml Kit 1 Ml) 1 mg IM ONCE PRN; Protocol PRN Reason: Adult Acute Hypoglycemia Nursing Prot. Heparin Sodium (Porcine) (Heparin 5,000 Unit/Ml Inj 1 Ml) 5,000 unit SUBCUT Q 12H [facility] Last Admin: 09/10/24 08:24 Dose: 5,000 unit Dextrose (D5w) 500 mls @ 0 mls/hr IV ONCE PRN; Protocol PRN Reason: Adult Acute Hypoglycemia Prot Dextrose (D10w) 125 mls @ 750 mls/hr IV PRN PRN; Protocol PRN Reason: Adult Acute Hypoglycemia Nursing Protocol Dextrose (D10w) 250 mls @ 1,000 mls/hr IV PRN PRN; Protocol PRN Reason: Adult Acute Hypoglycemia Nursing Protocol Albumin Human (Albumin) 12.5 gm in 50 mls @ 60 mls/hr IV PRN PRN PRN Reason: Hypotension and/or symptomatic Insulin Human Lispro (Insulin Lispro 100 Unit/1 Ml) 0 unit SUBCUT TIDWM [facility]; Protocol Last Admin: 09/10/24 11:25 Dose: 12 unit Lidocaine (Lidocaine 5% Patch) 1 patch TOPICAL [id number] [facility] Meclizine HCl (Meclizine 25 Mg Tablet) 25 mg PO TID PRN PRN Reason: DIZZINESS Multivitamins (B-Ygilcrg-Qjoheyr C Tablet) 1 each PO DAILY [facility] Last Admin: 09/10/24 08:24 Dose: 1 each Ondansetron HCl (Ondansetron 2 Mg/Ml Sdv 2 Ml) 4 mg IVP Q6H PRN PRN Reason: NAUSEA AND VOMITING Pantoprazole Sodium (Pantoprazole Dr 40 Mg Tablet) 40 mg PO QAM [facility] Last Admin: 09/10/24 05:51 Dose: 40 mg Sevelamer Carbonate (Sevelamer 800 Mg Tablet) 1,600 mg PO TIDWM [facility] Last Admin: 09/10/24 11:24 Dose: 1,600 mg Tamsulosin HCl (Tamsulosin 0.4 Mg Capsule) 0.8 mg PO QPM [facility] Last Admin: 09/09/24 18:41 Dose: 0.8 mg Discontinued Medications Carvedilol (Carvedilol 12.5 Mg Tablet) 12.5 mg PO BID [facility] Last Admin: 09/10/24 08:31 Dose: Not Given Furosemide (Furosemide 10 Mg/Ml Sdv 10ml) 60 mg IVP ONCE ONE Stop: 09/10/24 07:45 Last Admin: 09/10/24 08:24 Dose: 60 mg Heparin Sodium (Porcine) (Heparin, Porcine 1,000 Unit/Ml Inj 10 Ml) 1,000 unit IV ONCE ONE Stop: 09/10/24 07:45 Last Admin: 09/10/24 08:32 Dose: Not Given Hydralazine HCl (Hydralazine 20 Mg/Ml Inj 1 Ml) 5 mg IVP ONCE ONE Stop: 09/07/24 21:41 Last Admin: 09/07/24 21:51 Dose: 5 mg Piperacillin Sod/Tazobactam (Sod 3.375 gm/ Sodium Chloride) 50 mls @ 100 mls/hr IV ONCE ONE; Protocol Stop: 09/07/24 06:51 Last Infusion: 09/07/24 08:54 Dose: Infused Insulin Human Lispro (Insulin Lispro 100 Unit/1 Ml) 8 unit SUBCUT NOW ONE Stop: 09/07/24 21:19 Last Admin: 09/07/24 21:33 Dose: 8 unit Midodrine (Midodrine 5 Mg Tablet) 10 mg PO ONCE STA Stop: 09/09/24 16:05 Last Admin: 09/09/24 18:15 Dose: Not Given Morphine Sulfate (Morphine Ir 15 Mg Tablet) 15 mg PO Q6H PRN PRN Reason: MODERATE PAIN Sevelamer Carbonate (Sevelamer 800 Mg Tablet) 2,400 mg PO TIDWM [facility] Last Admin: 09/09/24 08:26 Dose: 2,400 mg Sodium Bicarbonate (Sodium Bicarbonate 650 Mg Tablet) 650 mg PO TID [facility] Last Admin: 09/08/24 20:08 Dose: 650 mg Allergies No Known Allergies Allergy (Verified 05/08/23 13:58) Home Medications allopurinol 100 mg tablet 200 mg PO QPM 08/12/21 [History Confirmed 09/07/24] ascorbic acid (vitamin C) 500 mg tablet 1,000 mg PO QPM 08/12/21 [History Confirmed 09/07/24] cholecalciferol (vitamin D3) 50 mcg (2,000 unit) capsule 50 mcg PO QPM 08/12/21 [History Confirmed 09/07/24] colchicine 0.6 mg tablet (Colcrys) See Rx Instructions .Route .COMPLEX 08/12/21 [History Confirmed 09/07/24] insulin glargine 100 unit/mL (3 mL) subcutaneous pen (Lantus Solostar U-100 Insulin) See Rx Instructions .Route .COMPLEX 08/12/21 [History Confirmed 09/07/24] elmmyp-nixslohr-vdiufyp 12,000-38,000-60,000 unit capsule,delayed rel (Creon) 3 cap PO TID 08/12/21 [History Confirmed 09/07/24] midodrine 5 mg tablet 5 mg PO TID 08/12/21 [History Confirmed 09/07/24] omeprazole 20 mg capsule,delayed release 20 mg PO QAM 08/12/21 [History Confirmed 09/07/24] tamsulosin 0.4 mg capsule 0.8 mg PO QPM 08/12/21 [History Confirmed 09/07/24] insulin lispro 100 unit/mL subcutaneous pen (Humalog KwikPen (U-100) Insulin) See Rx Instructions .Route .COMPLEX 01/03/22 [History Confirmed 09/07/24] vitamin B comp no.3-folic acid 1 mg-vit C 60 mg-biotin 300 mcg tablet (Alexandra-Oliva Rx) 1 tab PO QAM 01/03/22 [History Confirmed 09/07/24] sevelamer HCl 800 mg tablet 2,400 mg PO TID 06/14/22 [History Confirmed 09/07/24] sodium bicarbonate 650 mg tablet 650 mg PO QID 06/14/22 [History Confirmed 09/07/24] aspirin 81 mg tablet,delayed release 81 mg PO QAM 05/08/23 [History Confirmed 09/07/24] carvedilol 12.5 mg tablet 12.5 mg PO BID 05/08/23 [History Confirmed 09/07/24] atorvastatin 80 mg tablet 40 mg PO QPM 09/07/24 [History Confirmed 09/07/24] bupropion HCl 300 mg 24 hr tablet, extended release 300 mg PO QAM 09/07/24 [History Confirmed 09/07/24] ferrous sulfate 325 mg (65 mg iron) tablet 325 mg PO BID 09/07/24 [History Confirmed 09/07/24] oxybutynin chloride 5 mg tablet 5 mg PO TID 09/07/24 [History Confirmed 09/07/24] Discharge Plan Discharge Patient Disposition: Xfer Short-Term Hosp Condition: Stable Prescriptions: No Action Lantus Solostar U-100 Insulin 100 unit/mL (3 mL) insulin pen See Rx Instructions .ROUTE .COMPLEX Rx Instructions: SLIDING SCALE AT BEDTIME cholecalciferol (vitamin D3) 50 mcg (2,000 unit) capsule 50 mcg PO QPM midodrine 5 mg tablet 5 mg PO TID Rx Instructions: do not give last dose of day after 6PM or within 4 hrs of bedtime omeprazole 20 mg capsule,delayed release(DR/EC) 20 mg PO QAM colchicine [Colcrys] 0.6 mg tablet See Rx Instructions .ROUTE .COMPLEX Rx Instructions: 0.3 mg orally TWO TIMES A WEEK- MONDAY AND MONDAY ascorbic acid (vitamin C) 500 mg tablet 1,000 mg PO QPM allopurinol 100 mg tablet 200 mg PO QPM tamsulosin 0.4 mg capsule 0.8 mg PO QPM Creon 12,000-38,000 -60,000 unit capsule,delayed release(DR/EC) 3 cap PO TID Rx Instructions: administer with meals and/or snacks insulin lispro [Humalog KwikPen Insulin] 100 unit/mL insulin pen See Rx Instructions .ROUTE .COMPLEX Rx Instructions: SLIDING SCALE TID UP TO 12 UNITS Alexandra-Oliva Rx 1-60-300 mg-mg-mcg tablet 1 tab PO QAM sevelamer HCl 800 mg tablet 2,400 mg PO TID Rx Instructions: must administer with a meal/food sodium bicarbonate 650 mg tablet 650 mg PO QID carvedilol 12.5 mg tablet 12.5 mg PO BID aspirin [Aspir-81] 81 mg Tablet,Delayed Release (Dr/Ec) 81 mg PO QAM bupropion HCl 300 mg Tablet Extended Release 24 Hr 300 mg PO QAM atorvastatin 80 mg Tablet 40 mg PO QPM ferrous sulfate 325 mg (65 mg iron) Tablet 325 mg PO BID oxybutynin chloride 5 mg Tablet 5 mg PO TID Discharge Orders: Transfer Out of Facility (Order); Ordered 09/10/24 Ordered By: Cherry Tatum Referrals: [facility] [Outside] Annmarie Jacobson MD [Primary Care Provider] - Patient Instructions: Opioid Safety Transfer Attestations Time Spent in Transfer Care: greater than 30 min Quality Metrics Clinical Quality Measures [ No reported AMI, CVA or VTE this stay] Coding Level of Care Code Acute Code for Chg Fwd Diagnoses End-stage renal disease on hemodialysis N18.6; Z99.2 UTI (urinary tract infection) N39.0 Left rib fracture S22.32XA Recurrent falls R29.6 Dizziness R42 Elevated troponin R79.89
[2024-09-10 16:18] LABS: Glucose Point of Care 231 mg/dL (70-110)
[2024-09-10] MEDS: meclizine 25 mg tablet PO (17:43)
[2024-09-10] MEDS: atorvastatin 40 mg Tablet PO (17:43)
[2024-09-10] MEDS: carvedilol 12.5 mg Tablet 6.25 MG PO (17:43)
[2024-09-10] MEDS: tamsulosin 0.4 mg Capsule 0.8 MG PO (17:43)
[2024-09-10] MEDS: allopurinol 100 mg Tablet 200 MG PO (17:43)
[2024-09-10 20:44] LABS: Glucose Point of Care 133 mg/dL (70-110)
[2024-09-11] VITALS: BP 151/88; PULSE 102; RESP 16; TEMP 37.2; O2SAT 96
[2024-09-11 03:49] VITALS: BP 161/89; PULSE 107; RESP 16; TEMP 36.9; O2SAT 96
[2024-09-11] MEDS: buPROPion XL (24 HR) 300 mg Tablet PO (05:35)
[2024-09-11] MEDS: aspirin 81 mg EC Tablet PO (05:35)
[2024-09-11] MEDS: pantoprazole DR 40 mg Tablet PO (05:35)
[2024-09-11 06:00] VITALS: PULSE 117
[2024-09-11 06:28] LABS: Glucose Point of Care 181 mg/dL (70-110)
[2024-09-11 06:50] LABS: Basophils # 0.1 10^3/uL (0.0-0.1); Basophils % 0.4 %; Eosinophils # 0.3 10^3/uL (0.0-0.8); Eosinophils % 2.1 %; Hematocrit 31.8 % (37-53); Lymphocytes # 0.8 10^3/uL (0.8-4.8); Lymphocytes % 6.3 %; Mean Corpuscular HGB Conc 31.4 g/dL (30-55); Mean Corpuscular Hemoglobin 30.3 pg (27-33); Mean Corpuscular Volume 96.4 fl (82-101); Mean Platelet Volume 9.8 fL (7.4-10.4); Monocytes # 0.6 10^3/uL (0.2-0.9); Monocytes % 5.3 %; Neutrophils # 10.27 10^3/uL (1.8-7.7); Neutrophils % 85.5 %; Nucleated Red Blood Cells % 0 %; Platelet Count 160 10^3/cmm (157-399); Red Cell Distribution Width 15.7 % (12.1-15.1); White Blood Count 12.02 10^3/uL (3.29-11.43)
[2024-09-11 07:10] LABS: Alanine Aminotransferase 10 U/L (0-41); Albumin Level 3.5 g/dL (3.5-5.2); Alkaline Phosphatase 98 U/L (40-130); Aspartate Amino Transferase 10 U/L (0-40); Blood Urea Nitrogen 55 mg/dL (8-23); Calcium 9.7 mg/dL (8.5-10.5); Carbon Dioxide 21 mmol/L (22-29); Chloride 98 mmol/L (98-107); Creatinine Clr Calc Pharmacy 11.5019; Globulin 2.6 g/dL (1.3-4.6); Glucose 184 mg/dL (65-115); Magnesium 1.7 mg/dL (1.7-2.3); Osmolality Calculated 302 mOsm/kg (285-295); Phosphorus 2.5 mg/dL (2.5-4.5); Sodium 136 mmol/L (136-145); Total Bilirubin 0.4 mg/dL (0.15-1.2); Total Protein 6.1 g/dL (6.6-8.7)
--- NOTE | 2024-09-11 07:59 | PM.PN ---
Subjective Subjective: feels better. wants to transfer to [facility] for further evaluation. no cp or n/v/f/c/valentino. weak Medications: Reviewed: Yes Medication Review Details: Current Medications Acetaminophen (Acetaminophen 500 Mg Tablet) 500 mg PO Q4H PRN PRN Reason: fever Albuterol/Ipratropium (Ipratropium-Albuterol 3 Ml Neb) 3 ml INHALATION Q6H PRN PRN Reason: SHORTNESS OF BREATH Allopurinol (Allopurinol 100 Mg Tablet) 200 mg PO QPM [facility] Last Admin: 09/10/24 17:43 Dose: 200 mg Lipase/Protease/Amylase (Prtrke-Sbmjdjkn-Yyftqhj Capsule) 3 each PO TIDWM [facility] Last Admin: 09/10/24 17:42 Dose: 3 each Aspirin (Aspirin 81 Mg Ec Tablet) 81 mg PO QAM [facility] Last Admin: 09/11/24 05:35 Dose: 81 mg Atorvastatin Calcium (Atorvastatin 40 Mg Tablet) 40 mg PO QPM [facility] Last Admin: 09/10/24 17:43 Dose: 40 mg Bupropion HCl (Bupropion Xl (24 Hr) 300 Mg Tablet) 300 mg PO QAM [facility] Last Admin: 09/11/24 05:35 Dose: 300 mg Carvedilol (Carvedilol 12.5 Mg Tablet) 6.25 mg PO BID [facility] Last Admin: 09/10/24 17:43 Dose: 6.25 mg Ceftriaxone Sodium (Ceftriaxone 1,000 Mg Sdv) 1,000 mg IVP Q24H [facility]; Protocol Last Admin: 09/10/24 11:22 Dose: 1,000 mg Clopidogrel Bisulfate (Clopidogrel 75 Mg Tablet) 75 mg PO DAILY@12 [facility] Last Admin: 09/10/24 11:24 Dose: 75 mg Colchicine (Colchicine 0.6 Mg Tablet) 0.3 mg PO TuFr [facility] Last Admin: 09/10/24 08:24 Dose: 0.3 mg Glucagon (Glucagon 1 Mg/Ml Kit 1 Ml) 1 mg IM ONCE PRN; Protocol PRN Reason: Adult Acute Hypoglycemia Nursing Prot. Heparin Sodium (Porcine) (Heparin 5,000 Unit/Ml Inj 1 Ml) 5,000 unit SUBCUT Q12H [facility] Last Admin: 09/10/24 20:39 Dose: 5,000 unit Dextrose (D5w) 500 mls @ 0 mls/hr IV ONCE PRN; Protocol PRN Reason: Adult Acute Hypoglycemia Prot Dextrose (D10w) 125 mls @ 750 mls/hr IV PRN PRN; Protocol PRN Reason: Adult Acute Hypoglycemia Nursing Protocol Dextrose (D10w) 250 mls @ 1,000 mls/hr IV PRN PRN; Protocol PRN Reason: Adult Acute Hypoglycemia Nursing Protocol Albumin Human (Albumin) 12.5 gm in 50 mls @ 60 mls/hr IV PRN PRN PRN Reason: Hypotension and/or symptomatic Insulin Human Lispro (Insulin Lispro 100 Unit/1 Ml) 0 unit SUBCUT TIDWM [facility]; Protocol Last Admin: 09/10/24 17:42 Dose: 8 unit Lidocaine (Lidocaine 5% Patch) 1 patch TOPICAL [id number] [facility] Last Admin: 09/10/24 20:48 Dose: Not Given Meclizine HCl (Meclizine 25 Mg Tablet) 25 mg PO TID PRN PRN Reason: DIZZINESS Last Admin: 09/10/24 17:43 Dose: 25 mg Multivitamins (P-Vbwxwog-Qsaaeoh C Tablet) 1 each PO DAILY [facility] Last Admin: 09/10/24 08:24 Dose: 1 each Ondansetron HCl (Ondansetron 2 Mg/Ml Sdv 2 Ml) 4 mg IVP Q6H PRN PRN Reason: NAUSEA AND VOMITING Pantoprazole Sodium (Pantoprazole Dr 40 Mg Tablet) 40 mg PO QAM [facility] Last Admin: 09/11/24 05:35 Dose: 40 mg Sevelamer Carbonate (Sevelamer 800 Mg Tablet) 1,600 mg PO TIDWM [facility] Last Admin: 09/10/24 17:43 Dose: 1,600 mg Tamsulosin HCl (Tamsulosin 0.4 Mg Capsule) 0.8 mg PO QPM [facility] Last Admin: 09/10/24 17:43 Dose: 0.8 mg Vitals/I&O/Wt Last Vital Signs Temp 98.5 F 09/11/24 03:49 Pulse 117 H 09/11/24 06:00 Resp 16 09/11/24 03:49 BP 161/89 09/11/24 03:49 Pulse Ox 96 09/11/24 03:49 O2 Del Method Room Air 09/11/24 03:49 09/10/24 09/11/24 09/11/24 22:59 06:59 14:59 Intake Total 0 / 720 0 / 720 Output Total 100 / 100 Balance -100 / 620 0 / 620 Weight last 48 hrs Weight 72.847 kg Weight 74.48 kg Weight 73.482 kg Physical Exam Narrative: VS noted sitting up in bed, NARD neck supple lungs - dull left base, wheezes heart tachy irreg irreg, + s1, s2 abd soft, nt, ns, + bs ext LUE AVF w/ thrill and bruit no edema neuro- a,a, o x 3, moves all ext Data 09/11/24 06:20 09/11/24 06:20 Micro: Microbiology 09/07/24 05:42 Urine Culture - Final Urine,Clean Catch A&P Assessment and plan (1) End-stage renal disease on hemodialysis: 1. ESRD- HD MWF. if being transferred, can do HD after transfer or we can dialyze this morning 2. rib fractures 3. UTI- provetella and e coli. leukocytosis can also be from rib fx wbc stable 4. anemia- hgb 10 okay for ESRD. high iron sat- no iv iron 5. calcium 9.7- normal phos and pth 163- no need for vit d analouge lower sevelamer dose 6. htn from pain-improving- monitor w/ HD 7. sob- give lasix on non hd days seen and examined w/ aide of A/V equipment and a nurse pt consents to hD and telehealth. Plan see above Attestations Medical Necessity Statement*: chest pain, Dyespnea on exertion Time Spent in Patient Care: 16 - 35 minutes (>than 50% of time spent in counselling and/or direct pt care on unit). Coding Level of Care Code Acute Code for Chg Fwd Diagnoses End-stage renal disease on hemodialysis N18.6; Z99.2
[2024-09-11 08:00] VITALS: BP 125/73; PULSE 115; RESP 14; TEMP 36.7; O2SAT 98
[2024-09-11] MEDS: lipase-protease-amylase Capsule 3 EACH PO (08:22)
[2024-09-11] MEDS: carvedilol 12.5 mg Tablet 6.25 MG PO (08:22)
[2024-09-11] MEDS: b-complex-vitamin c Tablet 1 EACH PO (08:22)
[2024-09-11] MEDS: heparin 5,000 unit/mL INJ 1 mL 5000 UNIT SUBCUT (08:22)
[2024-09-11] MEDS: lidocaine 5% Patch 1 PATCH TOPICAL (08:23)
[2024-09-11] MEDS: insulin lispro 100 unit/1 mL SUBCUT (08:23)
[2024-09-11 09:27] VITALS: BP 114/76; PULSE 79; RESP 17; O2SAT 98
== END 2024-09-11 08:35 | disposition short-term general hospital (02) | DRG 690 ==
LOC: ER 06:27 → ER IP 09:36 → ICU 16:27 → MEDSURG 09-08 04:30 → ICU 09-08 08:25
PROVIDERS: General Practice; Internal Medicine; Internal Medicine Nephrology; Admitting Provider Internal Medicine; Emergency Provider Family Medicine; PCP Family Medicine; Visit Provider Student in an Organized Health Care Education/Training Program
DX: N10 Acute pyelonephritis (principal); S22.42XA Multiple fractures of ribs, left side, initial encounter for closed fracture; E11.22 Type 2 diabetes mellitus with diabetic chronic kidney disease; N18.6 End stage renal disease; R42 Dizziness and giddiness; R79.89 Other specified abnormal findings of blood chemistry; E11.40 Type 2 diabetes mellitus with diabetic neuropathy, unspecified; K21.9 Gastro-esophageal reflux disease without esophagitis; M10.9 Gout, unspecified; N40.0 Benign prostatic hyperplasia without lower urinary tract symptoms; I95.89 Other hypotension; Z90.5 Acquired absence of kidney; Z85.51 Personal history of malignant neoplasm of bladder; Z85.528 Personal history of other malignant neoplasm of kidney; Z99.2 Dependence on renal dialysis; W19.XXXA Unspecified fall, initial encounter; Z86.73 Personal history of transient ischemic attack (TIA), and cerebral infarction without residual deficits; Z95.810 Presence of automatic (implantable) cardiac defibrillator; Z79.02 Long term (current) use of antithrombotics/antiplatelets; Z79.82 Long term (current) use of aspirin; Z79.4 Long term (current) use of insulin
CPT/HCPCS: 36415; 36416; 71046; 71100; 72128; 72131; 73080; 80048; 80053; 81001; 82310; 82550; 82607; 82962; 83036; 83540; 83550; 83605; 83735; 83970; 84100; 84484; 84550; 85025; 86706; 86803; 87040; 87086; 87340; 90935; 93005; 93306; 96372; 96374; 97110; 97116; 97161; 97167; 97530; 99285; G0378; J0360; J0696; J1644; J1815; J1940; J2543; J8597

== ENCOUNTER 2024-10-09 17:11 | Observation (INO) | payer OTHER, MEDICARE, SELFPAY ==
--- NOTE | 2024-10-09 17:16 | XRR_ITS ---
PROCEDURE INFORMATION: Exam: XR Chest Exam date and time: 10/09/2024 7:22 PM Age: 74 years old Clinical indication: Other: Weakness TECHNIQUE: Imaging protocol: Radiologic exam of the chest. Views: 1 view. COMPARISON: CR (CHEST, ) 09/07/2024 5:13 AM FINDINGS: Tubes, catheters and devices: Chronic right chest multi lead defibrillator. There is a chronic metallic intracardiac device, likely for occlusion of the left atrial appendage. Lungs: The lungs are clear. Pleural spaces: Unremarkable. No pleural effusion. No pneumothorax. Heart/Mediastinum: Chronic mediastinal postop changes. Bones/joints: Unremarkable. XR/XR chest 1V portable [id number] IMPRESSION: No acute findings
--- NOTE | 2024-10-09 17:17 | ECG_ITS ---
[facility] Test Date: 2024-10-09 Pat Name: Alonso Delgado Department: Room: Gender: Male Teletype Clerk: : 1950 Requested By: Miki Oden Order Number: [id number] Dioni MD: Ross Campbell M.D. Measurements Intervals [place] Rate: 100 P: 72 [place]: 159 QRS: 14 QRSD: 103 T: 89 QT: 372 QTc: 482 Interpretive Statements SINUS TACHYCARDIA WITH OCCASIONAL SUPRAVENTRICULAR PREMATURE COMPLEXES NONSPECIFIC ST & T-WAVE ABNORMALITY Compared to ECG 09/10/2024 14:49:48 Sinus rhythm no longer present T-wave abnormality still present Electronically Signed On 10-10-2024 21:54:57 CONTRACTS DIRECTOR by Ross Campbell M.D. [email or web address]
[2024-10-09 17:22] VITALS: BP 116/65; PULSE 102; RESP 17; TEMP 36.8; O2SAT 97; BMI 25.8
--- NOTE | 2024-10-09 19:06 | CTR_ITS ---
PROCEDURE INFORMATION: Exam: CT Head Without Contrast Exam date and time: 10/09/2024 7:16 PM Age: 74 years old Clinical indication: Injury or trauma; Fall; Blunt trauma (contusions or hematomas); Without loss of consciousness; Additional info: Fall, head trauma TECHNIQUE: Imaging protocol: Computed tomography of the head without contrast. Radiation optimization: All CT scans at this facility use at least one of these dose optimization techniques: automated exposure control; mA and/or kV adjustment per patient size (includes targeted exams where dose is matched to clinical indication); or iterative reconstruction. COMPARISON: CT head wo con* [id number] 05/08/2023 10:54 AM RADIATION DOSE METRICS: Total DLP (mGy-cm): 1216.78 FINDINGS: Brain: Chronic infarcts in the anterior left temporal lobe and in the left posterior parietal lobe. Severe microangiopathy with accompanying generalized sulcal widening. No CT evidence for acute ischemia, mass or hemorrhage. Cerebral ventricles: Mild age-related enlargement. Paranasal sinuses: Scattered paranasal sinus mucosal thickening. Mastoid air cells: Visualized mastoid air cells are well aerated. Orbital cavities: Chronic deformity of the right medial orbital wall. Bones: Unremarkable. No acute fracture. Soft tissues: Unremarkable. Vasculature: Heavy calcified plaque in the distal internal carotid arteries. CT/CT head wo con* [id number] IMPRESSION: 1. No acute findings. 2. 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 3. Age-related changes and microangiopathy.
--- NOTE | 2024-10-09 19:07 | W.ED.FALL ---
HPI - Fall General: Chief Complaint: Fall Stated Complaint: weakness, Fall Time Seen by Provider: 10/09/24 18:54 History of Present Illness: Patient brought in by EMS for complaints of weakness and a fall x 2. Patient is a dialysis patient had dialysis today. He fell once before dialysis and fell once at dialysis. Hitting his head. Patient has had increased confusion today. Per patient's he has a history of urinary tract infections with the last time being E. coli where he was hospitalized for 4 days then transferred to [place] for 4 more days then had to go to the [facility] for rehab secondary to weakness. He got out there and has been home for about a week but is progressively gone downhill to the point that he is so fatigued and weak he cannot walk. And this is the reason that he has fell twice. says his urine has a very foul odor. They took him to [facility] last night they diagnosed him with another UTI E. coli urinary tract infection and gave him IV antibiotics x 1 and sent him home on antibiotic cefdinir that he took 1 pill of today. Related Data Home Medications ?Medication ?Instructions ?Recorded ?Confirmed allopurinol 100 mg tablet 200 mg PO QPM 08/12/21 09/07/24 ascorbic acid (vitamin C) 500 mg 1,000 mg PO QPM 08/12/21 09/07/24 tablet cholecalciferol (vitamin D3) 50 50 mcg PO QPM 08/12/21 09/07/24 mcg (2,000 unit) capsule colchicine 0.6 mg tablet (Colcrys) See Rx Instructions .Route .COMPLEX 08/12/21 09/07/24 insulin glargine 100 unit/mL (3 See Rx Instructions .Route .COMPLEX 08/12/21 09/07/24 mL) subcutaneous pen (Lantus Solostar U-100 Insulin) azwjmn-ygrpajss-mejtnqp 3 cap PO TID 08/12/21 09/07/24 12,000-38,000-60,000 unit capsule,delayed rel (Creon) midodrine 5 mg tablet 5 mg PO TID 08/12/21 09/07/24 omeprazole 20 mg capsule,delayed 20 mg PO QAM 08/12/21 09/07/24 release tamsulosin 0.4 mg capsule 0.8 mg PO QPM 08/12/21 09/07/24 insulin lispro 100 unit/mL See Rx Instructions .Route .COMPLEX 01/03/22 09/07/24 subcutaneous pen (Humalog KwikPen (U-100) Insulin) vitamin B comp no.3-folic acid 1 1 tab PO QAM 01/03/22 09/07/24 mg-vit C 60 mg-biotin 300 mcg tablet (Alexandra-Oliva Rx) sevelamer HCl 800 mg tablet 2,400 mg PO TID 06/14/22 09/07/24 sodium bicarbonate 650 mg tablet 650 mg PO QID 06/14/22 09/07/24 aspirin 81 mg tablet,delayed 81 mg PO QAM 05/08/23 09/07/24 release carvedilol 12.5 mg tablet 12.5 mg PO BID 05/08/23 09/07/24 atorvastatin 80 mg tablet 40 mg PO QPM 09/07/24 09/07/24 bupropion HCl 300 mg 24 hr tablet, 300 mg PO QAM 09/07/24 09/07/24 extended release ferrous sulfate 325 mg (65 mg 325 mg PO BID 09/07/24 09/07/24 iron) tablet oxybutynin chloride 5 mg tablet 5 mg PO TID 09/07/24 09/07/24 Allergies Allergy/AdvReac Type Severity Reaction Status Date / Time No Known Allergies Allergy Verified 10/09/24 17:27 Review of Systems General: Reports: 10 or more systems reviewed and unremarkable except in HPI and below PFSH ED PFSH: Medical History Bladder cancer BPH (benign prostatic hyperplasia) Gout Depression Anxiety Acute metabolic encephalopathy ESRD (end stage renal disease) ESRD on dialysis Flor-rectal abscess History of stroke 2009 Diabetes mellitus History of bladder cancer GERD (gastroesophageal reflux disease) History of colon polyps Surgical History History of appendectomy History of kidney removal left side History of cholecystectomy History of colonoscopy Family History Other CAD (coronary artery disease) Cancer Chronic kidney disease (CKD) Diabetes Lung disease Social History Smoking and tobacco/nicotine status: former use of tobacco/nicotine Alcohol intake: never Substance/Drug Use: never Physical Exam Const: COMMON NORMALS: no acute distress, average body habitus, patient oriented x3, no limitations, healthy appearing, alert and well nourished HENMT: COMMON NORMALS: normocephalic, atraumatic, hearing grossly normal bilaterally, external ears normal and Normal external nose present HEAD & SCALP: normocephalic and atraumatic NOSE: Normal external nose present EXTERNAL EAR: Yes external ears normal Neck/C-Spine: COMMON NORMALS: full ROM, no lymphadenopathy, supple, no meningeal signs, no JVD and Thyroid normal THYROID: Thyroid normal Chest: COMMONS NORMALS: normal inspection of the chest and normal palpation of entire chest wall Resp: COMMON NORMALS: normal respiratory effort, No retractions, No use of accessory muscles and clear to auscultation bilaterally AUSCULTATION: clear to auscultation bilaterally Cardio: COMMON NORMALS: no JVD, regular rate, regular rhythm, S1 normal heart sound present, S2 normal heart sound present, No gallops present (Cardio), No clicks present (Cardio), No murmurs present (Cardio) and No rub (Cardio) RATE: regular rate RHYTHM: regular rhythm HEART SOUNDS: S1 normal heart sound present and S2 normal heart sound present GI: COMMON NORMALS: Normal to inspection, nondistended, normoactive bowel sounds present, Soft to palpation, non-tender, No hepatosplenomegaly present and no masses PALPATION: Yes Soft to palpation and Yes No hepatosplenomegaly present Neuro: COMMON NORMALS: patient oriented x3 SENSORIUM/ORIENTATION: Yes alert MENINGEAL SIGNS: Yes no meningeal signs Course Vital Signs: Vital signs: Vital Signs Temperature 98.2 F 10/09/24 17:22 Pulse Rate 97 10/09/24 19:50 Respiratory Rate 22 H 10/09/24 19:50 Blood Pressure 137/68 10/09/24 19:50 Pulse Oximetry 98 10/09/24 19:50 Oxygen Delivery Me thod Room Air 10/09/24 17:22 MDM - Fall Medical Decision Making Lab work was reviewed, white count 12.7, BUN/creatinine 17/2.7, head CT and chest x-ray essentially negative. Urinalysis showed 1+ leukocyte Estrace with 51-100 white blood cells. These results was discussed with Dr. Gan who agreed to place patient in for further evaluation treatment and PT eval Medical Records I reviewed the patient's medical records. Lab Data I reviewed the patient's lab results. 10/09/24 19:05 10/09/24 19:05 Radiology Impressions Chest X-Ray 10/09/24 17:16 IMPRESSION: No acute findings Head CT 10/09/24 19:06 IMPRESSION: 1. No acute findings. 2. 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 3. Age-related changes and microangiopathy. Laboratory Results WBC 12.74 10^3/uL (3.29-11.43) H 10/09/24 19:05 RBC 3.04 10^6/uL (3.85-5.65) L 10/09/24 19:05 Hgb 9.50 g/dL (11.27-16.99) L 10/09/24 19:05 Hct 30.2 % (37-53) L 10/09/24 19:05 MCV 99.3 fl (82-101) 10/09/24 19:05 MCH 31.3 pg (27-33) 10/09/24 19:05 MCHC 31.5 g/dL (30-55) 10/09/24 19:05 RDW 16.1 % (12.1-15.1) H 10/09/24 19:05 Plt Count 163 10^3/cmm (157-399) 10/09/24 19:05 MPV 10.0 fL (7.4-10.4) 10/09/24 19:05 Neut % (Auto) 84.8 % 10/09/24 19:05 Lymph % (Auto) 6.0 % 10/09/24 19:05 [place] % (Auto) 7.8 % 10/09/24 19:05 Eos % (Auto) 0.4 % 10/09/24 19:05 Baso % (Auto) 0.4 % 10/09/24 19:05 Neut # (Auto) 10.79 10^3/uL (1.8-7.7) H 10/09/24 19:05 Lymph # (Auto) 0.8 10^3/uL (0.8-4.8) 10/09/24 19:05 [place]ie # (Auto) 1.0 10^3/uL (0.2-0.9) H 10/09/24 19:05 Eos # (Auto) 0.1 10^3/uL (0.0-0.8) 10/09/24 19:05 Baso # (Auto) 0.1 10^3/uL (0.0-0.1) 10/09/24 19:05 Nucleated RBC % (auto) 0 % 10/09/24 19:05 Nucleated RBCs # 0.0 /100WBC 10/09/24 19:05 PT 13.60 SECONDS (12.1-14.9) 10/09/24 19:05 INR 0.97 (0.8-1.2) 10/09/24 19:05 Sodium 138 mmol/L (136-145) 10/09/24 19:05 Potassium 3.7 mmol/L (3.5-5.1) 10/09/24 19:05 Chloride 95 mmol/L (98-107) L 10/09/24 19:05 Carbon Dioxide 33 mmol/L (22-29) H 10/09/24 19:05 Anion Gap 13.7 (5-19) 10/09/24 19:05 BUN 17 mg/dL (8-23) 10/09/24 19:05 Creatinine 2.7 mg/dL (0.7-1.2) H 10/09/24 19:05 GFR Calculation Not Reportable 10/09/24 19:05 Glucose 145 mg/dL (65-115) H 10/09/24 19:05 POC Glucose 140 mg/dL (70-110) H 10/09/24 22:04 Calculated Osmolality 290 mOsm/kg (285-295) 10/09/24 19:05 Calcium 10.0 mg/dL (8.5-10.5) 10/09/24 19:05 Phosphorus 1.7 mg/dL (2.5-4.5) L 10/09/24 19:05 Magnesium 1.9 mg/dL (1.7-2.3) 10/09/24 19:05 Total Bilirubin 0.6 mg/dL (0.15-1.2) 10/09/24 19:05 AST 14 U/L (0-40) 10/09/24 19:05 ALT 12 U/L (0-41) 10/09/24 19:05 Alkaline Phosphatase 141 U/L (40-130) H 10/09/24 19:05 Total Protein 6.7 g/dL (6.6-8.7) 10/09/24 19:05 Albumin 3.9 g/dL (3.5-5.2) 10/09/24 19:05 Globulin 2.8 g/dL (1.3-4.6) 10/09/24 19:05 Lipase 5 U/L (13-60) L 10/09/24 19:05 Urine Color Yellow (Yellow) 10/09/24 21:15 Urine Appearance Clear (CLEAR) 10/09/24 21:15 Urine pH >=9.0 (5-7) A 10/09/24 21:15 Ur Specific [place] 1.010 (1.005-1.030) 10/09/24 21:15 Urine Protein 2+ (Negative) A 10/09/24 21:15 Urine Glucose (UA) Trace (Normal) H 10/09/24 21:15 Urine Ketones Negative (Negative) 10/09/24 21:15 Urine Blood Negative (Negative) 10/09/24 21:15 Urine Nitrate Negative (Negative) 10/09/24 21:15 Urine Bilirubin Negative (Negative) 10/09/24 21:15 Urine Urobilinogen 0.2 mg/dL (Negative) 10/09/24 21:15 Ur Leukocyte Esterase 1+ (Negative) A 10/09/24 21:15 Urine RBC 0-2 /hpf (0-2) 10/09/24 21:15 Urine WBC 51-100 /hpf (0-5) H 10/09/24 21:15 Ur Squamous Epith Cells 0-5 /hpf (0-5) 10/09/24 21:15 Amorphous Sediment Not Reportable 10/09/24 21:15 Urine Bacteria None seen /hpf (NONE) 10/09/24 21:15 Hyaline Casts 0.40 /lpf 10/09/24 21:15 Urine Sperm 1+ /hpf 10/09/24 21:15 Coronavirus (PCR) Negative (Negative) 10/09/24 19:45 Influenza A (PCR) Negative (Negative) 10/09/24 19:45 Influenza Type B (PCR) Negative (Negative) 10/09/24 19:45 RSV (PCR) Negative (Negative) 10/09/24 19:45 All radiology interpretation(s) finalized by discharge Discharge Plan Discharge Patient Disposition: Admitted As Inpatient Clinical Impression: Generalized weakness, ESRD on dialysis UTI (urinary tract infection) Qualifiers: Urinary tract infection type: site unspecified Hematuria presence: with hematuria Qualified Code(s): N39.0 - Urinary tract infection, site not specified Condition: Stable Coding Level of Care Code ED Landscape Artist for Joseph Manriquez
[2024-10-09 19:41] LABS: Basophils # 0.1 10^3/uL (0.0-0.1); Basophils % 0.4 %; Eosinophils # 0.1 10^3/uL (0.0-0.8); Eosinophils % 0.4 %; Hematocrit 30.2 % (37-53); Lymphocytes # 0.8 10^3/uL (0.8-4.8); Mean Corpuscular HGB Conc 31.5 g/dL (30-55); Mean Corpuscular Hemoglobin 31.3 pg (27-33); Mean Corpuscular Volume 99.3 fl (82-101); Monocytes % 7.8 %; Neutrophils # 10.79 10^3/uL (1.8-7.7); Neutrophils % 84.8 %; Nucleated Red Blood Cells % 0 %; Platelet Count 163 10^3/cmm (157-399); Red Blood Count 3.04 10^6/uL (3.85-5.65); Red Cell Distribution Width 16.1 % (12.1-15.1); White Blood Count 12.74 10^3/uL (3.29-11.43)
[2024-10-09 19:50] VITALS: BP 137/68; PULSE 97; RESP 22; O2SAT 98
[2024-10-09 19:55] LABS: INR 0.97 (0.8-1.2)
[2024-10-09 20:00] LABS: Alanine Aminotransferase 12 U/L (0-41); Albumin Level 3.9 g/dL (3.5-5.2); Alkaline Phosphatase 141 U/L (40-130); Anion Gap 13.7 (5-19); Aspartate Amino Transferase 14 U/L (0-40); Blood Urea Nitrogen 17 mg/dL (8-23); Carbon Dioxide 33 mmol/L (22-29); Chloride 95 mmol/L (98-107); Creatinine Clr Calc Pharmacy 23.2707; Globulin 2.8 g/dL (1.3-4.6); Glucose 145 mg/dL (65-115); Lipase 5 U/L (13-60); Magnesium 1.9 mg/dL (1.7-2.3); Osmolality Calculated 290 mOsm/kg (285-295); Phosphorus 1.7 mg/dL (2.5-4.5); Potassium 3.7 mmol/L (3.5-5.1); Sodium 138 mmol/L (136-145); Total Bilirubin 0.6 mg/dL (0.15-1.2); Total Protein 6.7 g/dL (6.6-8.7)
[2024-10-09 20:35] LABS: Influenza A NEGATIVE (Negative); Influenza B NEGATIVE (Negative); Respiratory Syncytial Virus Ce NEGATIVE (Negative); SARS-CoV-2 PCR NEGATIVE (Negative)
[2024-10-09 21:44] LABS: Bilirubin Urine Negative (Negative); Blood Urine Negative (Negative); Glucose Urine UA Trace (Normal); Ketones Urine Negative (Negative); Leukocyte Esterase Urine 1+ (Negative); Nitrate Urine Negative (Negative); Protein Urine 2+ (Negative); Urine Appearance Clear (CLEAR); Urine Color Yellow (Yellow); Urobilinogen Urine 0.2 mg/dL (Negative); pH Urine >=9.0 (5-7)
[2024-10-09 21:49] LABS: Add Urine Microscopic? YES; Bacteria Urine None Seen /hpf; RBC Urine 0-2 /hpf (0-2); Squamous Epithelial Cell Urine 0-5 /hpf (0-5); WBC Urine 51-100 /hpf (0-5)
[2024-10-09 22:09] LABS: Glucose Point of Care 140 mg/dL (70-110)
[2024-10-09 22:21] LABS: UA Slide Review UA Slide Review Perf
[2024-10-09 22:22] LABS: Add Urine Culture? Yes; Sperm Urine 1+ /hpf
--- NOTE | 2024-10-09 22:42 | PM.HP ---
Providers/Chief Complaint Primary Care Provider: Annmarie Jacobson MD Chief Complaint: weakness, Fall History of Present Illness Alonso Delgado is a 74 year old male with history of end-stage renal disease Monday, bladder cancer in remission, recurrent falls, diabetic with nephropathy, was recently transferred to [facility] for evaluation of AICD, as per the patient stayed for about 8 days, cardiac evaluation was unremarkable, he was discharged to a rehab because of generalized weakness, got discharged on 26 September, and last 3 to 4 days he has been very weak and lethargic, has had multiple falls, had 1 fall today as well before dialysis and 1 fall after the dialysis, is not able to take care of him anymore. is stating that they went to [facility] yesterday and he was given ceftriaxone, he was given p.o. antibiotics, they have started p.o. antibiotics today but not able to take care of him at all. Patient endorsing subjective fever no nausea vomiting diarrhea or burning with micturition or pain. Patient wears depends and stating that he stays in wet depends for prolonged period of time. His last dialysis session was today. Workup in the ER consistent with leukocytosis, chronic anemia, significant pyuria creatinine 2.7 patient showing alkalosis he is awake and alert no active sign of confusion. Previous urine culture showed normal norm. Head CT chest x-ray unremarkable respiratory panel unremarkable Review of Systems Const: Reports: fever(s) Eyes: Denies: change in vision ENMT: Denies: throat pain Card: Denies: chest pain Resp: Denies: dyspnea GI: Denies: abdominal pain : Denies: flank pain Medications/Allergies Home Medications ?Medication ?Instructions ?Recorded ?Confirmed ?Last Taken ?Type allopurinol 100 mg tablet 200 mg PO QPM 08/12/21 09/07/24 09/05/24 History ascorbic acid (vitamin C) 500 mg 1,000 mg PO QPM 08/12/21 09/07/24 09/05/24 History tablet cholecalciferol (vitamin D3) 50 50 mcg PO QPM 08/12/21 09/07/24 09/05/24 History mcg (2,000 unit) capsule colchicine 0.6 mg tablet (Colcrys) See Rx Instructions .Route .COMPLEX 08/12/21 09/07/24 09/06/24 History insulin glargine 100 unit/mL (3 See Rx Instructions .Route .COMPLEX 08/12/21 09/07/24 09/06/24 History mL) subcutaneous pen (Lantus Solostar U-100 Insulin) [id number] 3 cap PO TID 08/12/21 09/07/24 09/06/24 12:00 History 12,000-38,000-60,000 unit capsule,delayed rel (Creon) midodrine 5 mg tablet 5 mg PO TID 08/12/21 09/07/24 09/06/24 12:00 History omeprazole 20 mg capsule,delayed 20 mg PO QAM 08/12/21 09/07/24 09/06/24 History release tamsulosin 0.4 mg capsule 0.8 mg PO QPM 08/12/21 09/07/24 09/05/24 History insulin lispro 100 unit/mL See Rx Instructions .Route .COMPLEX 01/03/22 09/07/24 09/05/24 History subcutaneous pen (Humalog KwikPen (U-100) Insulin) vitamin B comp no.3-folic acid 1 1 tab PO QAM 01/03/22 09/07/24 09/06/24 History mg-vit C 60 mg-biotin 300 mcg tablet (Alexandra-Oliva Rx) sevelamer HCl 800 mg tablet 2,400 mg PO TID 06/14/22 09/07/24 09/06/24 07:00 History sodium bicarbonate 650 mg tablet 650 mg PO QID 06/14/22 09/07/24 09/06/24 13:00 History aspirin 81 mg tablet,delayed 81 mg PO QAM 05/08/23 09/07/24 09/06/24 History release carvedilol 12.5 mg tablet 12.5 mg PO BID 05/08/23 09/07/24 09/06/24 08:00 History atorvastatin 80 mg tablet 40 mg PO QPM 09/07/24 09/07/24 09/05/24 History bupropion HCl 300 mg 24 hr tablet, 300 mg PO QAM 09/07/24 09/07/24 09/06/24 History extended release ferrous sulfate 325 mg (65 mg 325 mg PO BID 09/07/24 09/07/24 09/06/24 07:00 History iron) tablet oxybutynin chloride 5 mg tablet 5 mg PO TID 09/07/24 09/07/24 09/06/24 07:00 History Allergies Allergy/AdvReac Type Severity Reaction Status Date / Time No Known Allergies Allergy Verified 10/09/24 17:27 PFSH Acute PFSH: Medical History Bladder cancer BPH (benign prostatic hyperplasia) Gout Depression Anxiety Acute metabolic encephalopathy ESRD (end stage renal disease) ESRD on dialysis Flor-rectal abscess History of stroke 2009 Diabetes mellitus History of bladder cancer GERD (gastroesophageal reflux disease) History of colon polyps Surgical History History of appendectomy History of kidney removal left side History of cholecystectomy History of colonoscopy Family History Other CAD (coronary artery disease) Cancer Chronic kidney disease (CKD) Diabetes Lung disease Social History Smoking and tobacco/nicotine status: former use of tobacco/nicotine Alcohol intake: never Substance/Drug Use: never Vitals/I&O/Wt Last Vital Signs Temp 98.2 F 10/09/24 17:22 Pulse 97 10/09/24 19:50 Resp 22 H 10/09/24 19:50 BP 137/68 10/09/24 19:50 Pulse Ox 98 10/09/24 19:50 O2 Del Method Room Air 10/09/24 17:22 Weight last 48 hrs Weight 74.843 kg Physical Exam Narrative: Awake and alert Euvolemic GCS 15 Nonfocal neuroexam Currently on room air Hemodynamically stable Pleasant and cooperative at the bedside Abdomen soft S1, S2 Currently on room air no audible stridor or wheezing No active distress AOx4 Data 10/09/24 19:05 10/09/24 19:05 A&P Assessment and plan (1) Diabetes mellitus: (2) Kidney transplant candidate: (3) End-stage renal disease on hemodialysis: (4) UTI (urinary tract infection): Qualifiers: Hematuria presence: with hematuria Urinary tract infection type: site unspecified Qualified Code(s): N39.0 - Urinary tract infection, site not specified; R31.9 - Hematuria, unspecified (5) ESRD on dialysis: (6) Bladder cancer: (7) Recurrent falls: (8) Dizziness: (9) Generalized weakness: Plan Generalized weakness and fatigue Concern for pyelonephritis Significant pyuria Start patient on ceftriaxone No active fever With mild leukocytosis noted Previous urine culture showed normal norm Patient has history of bladder cancer Check B12, TSH Likely etiology seems to be underlying bladder cancer and using depends for prolonged period time End-stage renal disease Nephro consulted next session will be on Monday 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 Recent cystoscopy 08/18 did not show recurrence of cancer Diabetes with nephropathy and neuropathy Check B12, TSH Recurrent falls Patient uses a walker and roller aid CABG 2022, status post AICD: As per the patient and family, cardiac valuation was done recently at [place] it was unremarkable Renal diet Insulin sliding scale DVT prophylaxis heparin PDMP PDMP Reviewed: Not Reviewed Attestations Medical Necessity Statement*: Anticipating stress within 48 hours Diagnoses Diabetes mellitus E11.9 Kidney transplant candidate Z76.82 End-stage renal disease on hemodialysis N18.6; Z99.2 UTI (urinary tract infection) N39.0; R31.9 Hematuria presence: with hematuria Urinary tract infection type: site unspecified ESRD on dialysis N18.6; Z99.2 Bladder cancer C67.9 Recurrent falls R29.6 Dizziness R42 Generalized weakness R53.1
[2024-10-09 23:29] VITALS: BMI 25.7
[2024-10-09] MEDS: cefTRIAXone 1,000 mg SDV 1000 MG IVP (23:34)
[2024-10-09 23:50] VITALS: BP 140/70; PULSE 97; O2SAT 97
[2024-10-10] VITALS (8 sets, daily range): BP systolic 133–157; BP diastolic 64–80; PULSE 75–97; RESP 16–18; TEMP 36.4–37.1; O2SAT 93–97
[2024-10-10 00:47] LABS: Thyroid Stimulating Hormone 0.97 uIU/mL (0.27-4.20); Vitamin B12 535 pg/mL (232-1245)
[2024-10-10] MEDS: heparin 5,000 unit/mL INJ 1 mL 5000 UNIT SUBCUT ×2 (05:23→16:55)
[2024-10-10] MEDS: aspirin 81 mg EC Tablet PO (05:23)
[2024-10-10 05:42] LABS: Basophils # 0.1 10^3/uL (0.0-0.1); Basophils % 0.5 %; Eosinophils # 0.1 10^3/uL (0.0-0.8); Eosinophils % 0.9 %; Hematocrit 28.6 % (37-53); Lymphocytes # 0.7 10^3/uL (0.8-4.8); Lymphocytes % 6.4 %; Mean Corpuscular HGB Conc 30.8 g/dL (30-55); Mean Corpuscular Hemoglobin 30.2 pg (27-33); Mean Corpuscular Volume 98.3 fl (82-101); Mean Platelet Volume 10.4 fL (7.4-10.4); Monocytes # 1.1 10^3/uL (0.2-0.9); Monocytes % 9.3 %; Neutrophils # 9.46 10^3/uL (1.8-7.7); Neutrophils % 82.1 %; Nucleated Red Blood Cells % 0 %; Platelet Count 146 10^3/cmm (157-399); Red Blood Count 2.91 10^6/uL (3.85-5.65); Red Cell Distribution Width 15.9 % (12.1-15.1); White Blood Count 11.52 10^3/uL (3.29-11.43)
[2024-10-10 05:55] LABS: Anion Gap 14.5 (5-19); Blood Urea Nitrogen 24 mg/dL (8-23); C Reactive Protein 193.6 mg/L (0.0-4.9); Calcium 9.4 mg/dL (8.5-10.5); Carbon Dioxide 30 mmol/L (22-29); Chloride 98 mmol/L (98-107); Creatinine Clr Calc Pharmacy 20.3472; Glucose 167 mg/dL (65-115); Magnesium 1.9 mg/dL (1.7-2.3); Osmolality Calculated 296 mOsm/kg (285-295); Phosphorus 1.9 mg/dL (2.5-4.5); Potassium 3.5 mmol/L (3.5-5.1); Sodium 139 mmol/L (136-145)
[2024-10-10 06:18] LABS: Glucose Point of Care 163 mg/dL (70-110)
--- NOTE | 2024-10-10 07:06 | PC.PHAR ---
Addendum entered by Carmencita Hill 10/10/24 09:52: No pm meds taken yesterday and spouse will bring in the Creon. Addendum entered by Carmencita Hill 10/10/24 09:51: faxed[facility] at 7am with no response by 9:50am. Verified all medications via Spouse with bottles in front of her at home. Original Note: [facility] 10/10/24 7:06am. [facility] after 8:30am. Will ask pt in room, also.
[2024-10-10] MEDS: insulin lispro 100 unit/1 mL SUBCUT ×2 (07:20→11:26)
[2024-10-10] MEDS: sevelamer 800 mg Tablet 2400 MG PO (07:20)
--- NOTE | 2024-10-10 07:49 | PM.CONSULT ---
Providers/Reason For Consult Consulting Physician/Specialty*: yvette connors md/ telenephrology Reason for Consult*: ESRD care Requesting Physician: DR Eliu Gan Attending Physician: José Gan MD Primary Care Provider: Annmarie Jacobson MD History of Present Illness History of Present Illness Alonso Delgado is a 74 year old male with history of end-stage renal disease Monday, bladder cancer in remission, recurrent falls, diabetes mellitus. He was recently evaluated at [facility] for question of AICD, as per the patient stayed for about 8 days, cardiac evaluation was unremarkable. Over the last 3 to 4 days he has been very weak and lethargic, has had multiple falls, including falling yesterday after dialysis, is not able to take care of him anymore. Per chart they were at [facility] on 10-08-24 and he was given ceftriaxone, and discharged on p.o. antibiotics. He is admitted now for UTI and gneral weakness Review of Systems Narrative: weak, poor appetite, ataxia, falls, urinary difficulty, nausea, poor appetite. headaches. Medications/Allergies Home Medications ?Medication ?Instructions ?Recorded ?Confirmed ?Last Taken ?Type allopurinol 100 mg tablet 200 mg PO QPM 08/12/21 09/07/24 09/05/24 History ascorbic acid (vitamin C) 500 mg 1,000 mg PO QPM 08/12/21 09/07/24 09/05/24 History tablet cholecalciferol (vitamin D3) 50 50 mcg PO QPM 08/12/21 09/07/24 09/05/24 History mcg (2,000 unit) capsule colchicine 0.6 mg tablet (Colcrys) See Rx Instructions .Route .COMPLEX 08/12/21 09/07/24 09/06/24 History insulin glargine 100 unit/mL (3 See Rx Instructions .Route .COMPLEX 08/12/21 09/07/24 09/06/24 History mL) subcutaneous pen (Lantus Solostar U-100 Insulin) [id number] 3 cap PO TID 08/12/21 09/07/24 09/06/24 12:00 History 12,000-38,000-60,000 unit capsule,delayed rel (Creon) midodrine 5 mg tablet 5 mg PO TID 08/12/21 09/07/24 09/06/24 12:00 History omeprazole 20 mg capsule,delayed 20 mg PO QAM 08/12/21 09/07/24 09/06/24 History release tamsulosin 0.4 mg capsule 0.8 mg PO QPM 08/12/21 09/07/24 09/05/24 History insulin lispro 100 unit/mL See Rx Instructions .Route .COMPLEX 01/03/22 09/07/24 09/05/24 History subcutaneous pen (Humalog KwikPen (U-100) Insulin) vitamin B comp no.3-folic acid 1 1 tab PO QAM 01/03/22 09/07/24 09/06/24 History mg-vit C 60 mg-biotin 300 mcg tablet (Alexandra-Oliva Rx) sevelamer HCl 800 mg tablet 2,400 mg PO TID 06/14/22 09/07/24 09/06/24 07:00 History sodium bicarbonate 650 mg tablet 650 mg PO QID 06/14/22 09/07/24 09/06/24 13:00 History aspirin 81 mg tablet,delayed 81 mg PO QAM 05/08/23 09/07/24 09/06/24 History release carvedilol 12.5 mg tablet 12.5 mg PO BID 05/08/23 09/07/24 09/06/24 08:00 History atorvastatin 80 mg tablet 40 mg PO QPM 09/07/24 09/07/24 09/05/24 History bupropion HCl 300 mg 24 hr tablet, 300 mg PO QAM 09/07/24 09/07/24 09/06/24 History extended release ferrous sulfate 325 mg (65 mg 325 mg PO BID 09/07/24 09/07/24 09/06/24 07:00 History iron) tablet oxybutynin chloride 5 mg tablet 5 mg PO TID 09/07/24 09/07/24 09/06/24 07:00 History Allergies Allergy/AdvReac Type Severity Reaction Status Date / Time No Known Allergies Allergy Verified 10/09/24 17:27 Current Medications Generic Name Dose Route Start Last Admin Trade Name Freq PRN Reason Stop Dose Admin Aspirin 81 mg 10/10/24 06:00 10/10/24 05:23 Aspirin 81 Mg Ec Tablet PO 81 mg QAM CONTRERAS Administration Heparin Sodium (Porcine) 5,000 unit 10/10/24 06:00 10/10/24 05:23 Heparin 5,000 Unit/Ml Inj 1 Ml SUBCUT 5,000 unit Q12H CONTRERAS Administration Insulin Human Lispro 0 unit 10/10/24 08:00 10/10/24 07:20 Insulin Lispro 100 Unit/1 Ml SUBCUT 4 unit TIDWM CONTRERAS Administration Protocol Sevelamer Carbonate 2,400 mg 10/10/24 08:00 10/10/24 07:20 Sevelamer 800 Mg Tablet PO 2,400 mg TIDWM CONTRERAS Administration PFSH Acute PFSH: Medical History Bladder cancer BPH (benign prostatic hyperplasia) Gout Depression Anxiety Acute metabolic encephalopathy ESRD (end stage renal disease) ESRD on dialysis Flor-rectal abscess History of stroke 2009 Diabetes mellitus History of bladder cancer GERD (gastroesophageal reflux disease) History of colon polyps Surgical History History of appendectomy History of kidney removal left side History of cholecystectomy History of colonoscopy Family History Other CAD (coronary artery disease) Cancer Chronic kidney disease (CKD) Diabetes Lung disease Social History Smoking and tobacco/nicotine status: former use of tobacco/nicotine Alcohol intake: never Substance/Drug Use: never Vitals/I&O/Wt Last Vital Signs Temp 98.7 F 10/10/24 07:06 Pulse 93 10/10/24 07:34 Resp 16 10/10/24 07:34 BP 135/66 10/10/24 07:06 Pulse Ox 95 10/10/24 07:34 O2 Del Method Room Air 10/10/24 07:34 10/09/24 10/10/24 10/10/24 22:59 06:59 14:59 Intake Total 240 / 240 120 / 120 Balance 240 / 240 120 / 120 Weight last 48 hrs Weight 75.523 kg Weight 74.389 kg Weight 74.843 kg Physical Exam Narrative: comfortable in bed, NARD VSS heent- nc/at, eomi neck supple lungs cler heart reg, + s1, s2 abd soft, + bs ext no edema LUE AVF w/ good thrill and bruit neuro- moves all extremities, a,a, o x 2+ Data 10/10/24 04:46 10/10/24 04:46 A&P Assessment and plan (1) ESRD on dialysis: 1. Q UTI per medicine CRP is 193- +u/a. await ur cx. would consider giving abx - given that he was started on abx on oct 08, 2024 at [facility] 2. eSRD- HD tomorrow 3. anemia- epo and iron studies 4. reduce renvela to 800mg tid 5. PT for weakness 6. no need for sodium bicarb seen and examined using A/V equipment with the aide of a nurse he consents to telehealth visits and to hemodialysis Plan see above PDMP PDMP Reviewed: Not Reviewed Consult Attestations Medical Necessity Statement: per medical team Time Spent in Patient Care: Greater than 35 minutes (>than 50% of time spent in counselling and/or direct pt care on unit). Coding Level of Care Code Acute Code for Chg Fwd Diagnoses ESRD on dialysis N18.6; Z99.2
[2024-10-10] MEDS: carvedilol 12.5 mg Tablet PO (08:25)
[2024-10-10] MEDS: sennosides-docusate Tablet 1 TAB PO (08:25)
[2024-10-10] MEDS: cefTRIAXone 1,000 mg SDV 1000 MG IVP (08:25)
[2024-10-10 09:13] LABS: Iron 15 ug/dL (59-158); Percent Saturation 9.7 % (20-50); Thyroid Stimulating Hormone 0.84 uIU/mL (0.27-4.20); Total Iron Binding Capacity 154 mcg/dl; Unsaturated Iron Binding 139 ug/dL (112-347)
[2024-10-10 09:26] LABS: Ferritin 2223 ng/mL (30-400)
[2024-10-10 11:19] LABS: Glucose Point of Care 231 mg/dL (70-110)
[2024-10-10] MEDS: sevelamer 800 mg Tablet PO ×2 (11:27→16:56)
[2024-10-10 16:40] LABS: Glucose Point of Care 60 mg/dL (70-110)
[2024-10-10] MEDS: allopurinol 100 mg Tablet 50 MG PO (16:55)
[2024-10-10] MEDS: tamsulosin 0.4 mg Capsule 0.8 MG PO (16:56)
[2024-10-10] MEDS: atorvastatin 40 mg Tablet PO (16:56)
--- NOTE | 2024-10-10 17:13 | P.PN_ITS ---
Subjective 2 Subjective: overnight labs and H&P reviewed. No new complaints today Medications: Reviewed: Yes Vitals/I&O/Wt Last Vital Signs Temp 98.3 F 10/10/24 15:11 Pulse 80 10/10/24 15:11 Resp 16 10/10/24 15:11 BP 133/69 10/10/24 15:11 Pulse Ox 97 10/10/24 15:11 O2 Del Method Room Air 10/10/24 15:11 10/10/24 10/10/24 10/10/24 06:59 14:59 22:59 Intake Total 240 / 240 360 / 360 Balance 240 / 240 360 / 360 Weight last 48 hrs Weight 75.523 kg Weight 74.389 kg Weight 74.843 kg Physical Exam 2 Narrative: General: No acute distress, AO x3 HEENT: PERRLA, pupils bilaterally equal and reactive, pallors not present Chest: Normal vesicular breath sounds, no added sounds, equal good air entry bilaterally CVS: S1-S2 regular, no murmurs, no tachycardia, no gallops, no rubs Abdomen: Soft, nontender, no organomegaly, bowel sounds present Neuro: No focal deficits, no facial deformity, AO x3, power 5/5 in all limbs Data 10/11/24 04:06 10/11/24 04:06 A&P Assessment and plan (1) ESRD on dialysis: (2) Recurrent falls: (3) UTI (urinary tract infection): Qualifiers: Hematuria presence: with hematuria Urinary tract infection type: site unspecified Qualified Code(s): N39.0 - Urinary tract infection, site not specified; R31.9 - Hematuria, unspecified Plan 74-year-old male with end-stage renal disease on hemodialysis, history of recurrent falls, diabetes with neuropathy, on outpatient physical therapy and recent SNF stay until recently. He has been feeling increasingly weak and deconditioned at home. His reports that it has been very difficult to take care of him as he needs and assistance at home. He was here in early September with simlar complants and had sustained a fall resulting in rib fractures and was also detected to have an L3 fracture. He has additionally had recurrent UTIs. PEr he had a cystocsopy in Aug 2024 with his urologist in [facility] which was grossly normal. URine cx here from September was without growth. Patient was transferred to [facility] per his request the last time where reports his urine cx had shown E.coli. On oct 10 he was in the ER at [facility] where he was again diagnosed with a UTI and discharged with oral cephalosporins. HIs UA on current admission is +. HE is currently on Ceftriaxone 1g iv every 24h empirically which we will continue. Requesting urine cx from [facility] PDMP PDMP Reviewed: Not Reviewed Attestations 2 Medical Necessity Statement*: UTI, disposition planning. Coding Level of Care Code Acute Code for Chg Fwd Diagnoses ESRD on dialysis N18.6; Z99.2 Recurrent falls R29.6 UTI (urinary tract infection) N39.0; R31.9 Hematuria presence: with hematuria Urinary tract infection type: site unspecified
[2024-10-10 17:43] LABS: Glucose Point of Care 122 mg/dL (70-110)
[2024-10-10 20:41] LABS: Glucose Point of Care 178 mg/dL (70-110)
[2024-10-11] VITALS (9 sets, daily range): BP systolic 121–162; BP diastolic 45–80; PULSE 72–88; RESP 15–18; TEMP 36.4–36.9; O2SAT 94–97
[2024-10-11 04:27] LABS: Basophils # 0.1 10^3/uL (0.0-0.1); Basophils % 0.6 %; Eosinophils # 0.5 10^3/uL (0.0-0.8); Eosinophils % 4.5 %; Hematocrit 27.6 % (37-53); Lymphocytes # 0.9 10^3/uL (0.8-4.8); Lymphocytes % 9.4 %; Mean Corpuscular HGB Conc 31.2 g/dL (30-55); Mean Corpuscular Hemoglobin 30.4 pg (27-33); Mean Corpuscular Volume 97.5 fl (82-101); Mean Platelet Volume 10.4 fL (7.4-10.4); Monocytes # 0.8 10^3/uL (0.2-0.9); Monocytes % 8.4 %; Neutrophils # 7.64 10^3/uL (1.8-7.7); Neutrophils % 76.7 %; Nucleated Red Blood Cells % 0 %; Platelet Count 153 10^3/cmm (157-399); Red Blood Count 2.83 10^6/uL (3.85-5.65); Red Cell Distribution Width 15.5 % (12.1-15.1); White Blood Count 9.97 10^3/uL (3.29-11.43)
[2024-10-11 04:51] LABS: Alanine Aminotransferase 10 U/L (0-41); Albumin Level 3.1 g/dL (3.5-5.2); Alkaline Phosphatase 122 U/L (40-130); Anion Gap 16.5 (5-19); Aspartate Amino Transferase 11 U/L (0-40); Blood Urea Nitrogen 40 mg/dL (8-23); Calcium 9.4 mg/dL (8.5-10.5); Carbon Dioxide 27 mmol/L (22-29); Chloride 97 mmol/L (98-107); Creatinine Clr Calc Pharmacy 15.0728; Glucose 151 mg/dL (65-115); Magnesium 2.1 mg/dL (1.7-2.3); Osmolality Calculated 297 mOsm/kg (285-295); Phosphorus 2.3 mg/dL (2.5-4.5); Potassium 3.5 mmol/L (3.5-5.1); Sodium 137 mmol/L (136-145); Total Bilirubin 0.3 mg/dL (0.15-1.2); Total Protein 6.1 g/dL (6.6-8.7)
[2024-10-11] MEDS: aspirin 81 mg EC Tablet PO (05:51)
[2024-10-11] MEDS: heparin 5,000 unit/mL INJ 1 mL 5000 UNIT SUBCUT ×2 (05:51→17:02)
[2024-10-11 06:33] LABS: Glucose Point of Care 152 mg/dL (70-110)
--- NOTE | 2024-10-11 07:57 | P.PN_ITS ---
Subjective 2 Subjective: no new complaints Medications: Reviewed: Yes Vitals/I&O/Wt Last Vital Signs Temp 98.2 F 10/11/24 04:00 Pulse 87 10/11/24 04:00 Resp 16 10/11/24 04:00 BP 158/72 10/11/24 04:00 Pulse Ox 94 10/11/24 04:00 O2 Del Method Room Air 10/11/24 04:00 10/10/24 10/11/24 10/11/24 22:59 06:59 14:59 Intake Total 360 / 720 0 / 720 Output Total 500 / 500 Balance 360 / 720 -500 / 220 Weight last 48 hrs Weight 76.158 kg Weight 75.523 kg Weight 74.389 kg Weight 74.843 kg Physical Exam 2 Narrative: comfortable in bed, NARD VSS heent- nc/at, eomi neck supple lungs cler heart reg, + s1, s2 abd soft, + bs ext no edema LUE AVF w/ good thrill and bruit neuro- moves all extremities, a,a, o x 2+ Data 10/11/24 04:06 10/11/24 04:06 A&P Assessment and plan (1) ESRD on dialysis: 1. UTI per medicine CRP is 193- +u/a. await ur cx. would consider giving abx - given that he was started on abx on oct 08, 2024 at [facility] 2. eSRD- - on HD per [facility] schedule , HD today 3. anemia- epo and iron studies 4. MBD : reduce renvela to 800mg tid 5. Generalized weakness 6. HTN : controlled seen and examined using A/V equipment with the aide of a nurse he consents to telehealth visits and to hemodialysis Plan see above PDMP PDMP Reviewed: Not Reviewed Attestations 2 Medical Necessity Statement*: per [place] Coding Level of Care Code Acute Code for Chg Fwd Diagnoses ESRD on dialysis N18.6; Z99.2
[2024-10-11] MEDS: sevelamer 800 mg Tablet PO ×3 (08:18→17:02)
[2024-10-11] MEDS: cefTRIAXone 1,000 mg SDV 1000 MG IVP (08:18)
[2024-10-11] MEDS: sennosides-docusate Tablet 1 TAB PO (08:18)
[2024-10-11] MEDS: carvedilol 12.5 mg Tablet PO ×2 (08:19→17:02)
[2024-10-11] MEDS: insulin lispro 100 unit/1 mL SUBCUT ×2 (08:19→11:34)
[2024-10-11] MEDS: ACIDOPHILUS PROBIOTIC 1 EACH PO (08:22)
[2024-10-11 10:47] LABS: Glucose Point of Care 211 mg/dL (70-110)
--- NOTE | 2024-10-11 16:02 | P.PN_ITS ---
Subjective 2 Subjective: seen during HD, denies any complaints Medications: Reviewed: Yes Vitals/I&O/Wt Last Vital Signs Temp 98.1 F 10/11/24 12:42 Pulse 72 10/11/24 12:42 Resp 16 10/11/24 12:42 BP 121/45 10/11/24 12:42 Pulse Ox 97 10/11/24 11:49 O2 Del Method Room Air 10/11/24 11:49 10/11/24 10/11/24 10/11/24 06:59 14:59 22:59 Intake Total 0 / 720 596 / 596 Output Total 500 / 500 Balance -500 / 220 596 / 596 Weight last 48 hrs Weight 76.158 kg Weight 75.523 kg Weight 74.389 kg Weight 74.843 kg Physical Exam 2 Narrative: General: No acute distress, AO x3 HEENT: PERRLA, pupils bilaterally equal and reactive, pallors not present Chest: Normal vesicular breath sounds, no added sounds, equal good air entry bilaterally CVS: S1-S2 regular, no murmurs, no tachycardia, no gallops, no rubs Abdomen: Soft, nontender, no organomegaly, bowel sounds present Neuro: No focal deficits, no facial deformity, AO x3, power 5/5 in all limbs Data 10/11/24 04:06 10/11/24 04:06 Micro: Microbiology 10/09/24 21:15 Urine Culture - Final Urine,Clean Catch A&P Assessment and plan (1) ESRD on dialysis: (2) Recurrent falls: (3) UTI (urinary tract infection): Qualifiers: Hematuria presence: with hematuria Urinary tract infection type: site unspecified Qualified Code(s): N39.0 - Urinary tract infection, site not specified; R31.9 - Hematuria, unspecified Plan 74-year-old male with end-stage renal disease on hemodialysis, history of recurrent falls, diabetes with neuropathy, on outpatient physical therapy and recent SNF stay until recently. He has been feeling increasingly weak and deconditioned at home. His reports that it has been very difficult to take care of him as he needs and assistance at home. He was here in early September with simlar complants and had sustained a fall resulting in rib fractures and was also detected to have an L3 fracture. He has additionally had recurrent UTIs. PEr he had a cystocsopy in Aug 2024 with his urologist in [facility] which was grossly normal. URine cx here from September was without growth. Patient was transferred to [facility] per his request the last time where reports his urine cx had shown E.coli. On oct 10 he was in the ER at [facility] where he was again diagnosed with a UTI and discharged with oral cephalosporins. HIs UA on current admission is +. HE is currently on Ceftriaxone 1g iv every 24h empirically which we will continue. Requesting urine cx from [facility] October 11, 2023: Urine cx taken here on admission thus far with mixed urogenital norm. Urine cx obtained from [facility] with > 100,000 Enterobacter Cloacae resistant to ceftriaxone. Isolate susceptible to cefepime, cipro, gentamicin, levaquin, nitrofuranotin, bactrim. Resistant ceftazidime, zosyn, CTX (likely ESBL). Change to renally dose fluoroquinolones. May need to consider possibility of prostatitis given recurrence of symptoms- reportedly this is 4th episode in one month. PDMP PDMP Reviewed: Not Reviewed Attestations 2 Medical Necessity Statement*: UTi, change abx, disposition planning, exhibiting reduced endurance Coding Level of Care Code Acute Code for Chg Fwd Diagnoses ESRD on dialysis N18.6; Z99.2 Recurrent falls R29.6 UTI (urinary tract infection) N39.0; R31.9 Hematuria presence: with hematuria Urinary tract infection type: site unspecified
[2024-10-11] MEDS: levoFLOXacin 250 mg Tablet PO (17:01)
[2024-10-11] MEDS: atorvastatin 40 mg Tablet PO (17:02)
[2024-10-11] MEDS: tamsulosin 0.4 mg Capsule 0.8 MG PO (17:02)
[2024-10-11 17:08] LABS: Glucose Point of Care 121 mg/dL (70-110)
[2024-10-11 20:59] LABS: Glucose Point of Care 373 mg/dL (70-110)
[2024-10-12 04:23] VITALS: BP 102/65; PULSE 75; RESP 18; TEMP 36.7; O2SAT 92
[2024-10-12 04:40] LABS: Basophils # 0.1 10^3/uL (0.0-0.1); Basophils % 0.7 %; Eosinophils # 0.4 10^3/uL (0.0-0.8); Hematocrit 30.5 % (37-53); Lymphocytes # 0.9 10^3/uL (0.8-4.8); Lymphocytes % 10.6 %; Mean Corpuscular HGB Conc 30.2 g/dL (30-55); Mean Corpuscular Hemoglobin 30.5 pg (27-33); Mean Platelet Volume 10.5 fL (7.4-10.4); Monocytes # 1.1 10^3/uL (0.2-0.9); Monocytes % 12.4 %; Neutrophils % 70.9 %; Nucleated Red Blood Cells % 0 %; Platelet Count 159 10^3/cmm (157-399); Red Blood Count 3.02 10^6/uL (3.85-5.65); Red Cell Distribution Width 15.2 % (12.1-15.1); White Blood Count 8.46 10^3/uL (3.29-11.43)
[2024-10-12 05:04] LABS: Alanine Aminotransferase 12 U/L (0-41); Albumin Level 3.4 g/dL (3.5-5.2); Alkaline Phosphatase 154 U/L (40-130); Anion Gap 17.2 (5-19); Aspartate Amino Transferase 15 U/L (0-40); Blood Urea Nitrogen 27 mg/dL (8-23); Calcium 9.7 mg/dL (8.5-10.5); Carbon Dioxide 22 mmol/L (22-29); Chloride 103 mmol/L (98-107); Creatinine Clr Calc Pharmacy 20.0766; Globulin 2.9 g/dL (1.3-4.6); Glucose 172 mg/dL (65-115); Magnesium 2.1 mg/dL (1.7-2.3); Osmolality Calculated 295 mOsm/kg (285-295); Phosphorus 2.1 mg/dL (2.5-4.5); Potassium 4.2 mmol/L (3.5-5.1); Sodium 138 mmol/L (136-145); Total Bilirubin 0.3 mg/dL (0.15-1.2); Total Protein 6.3 g/dL (6.6-8.7)
[2024-10-12] MEDS: aspirin 81 mg EC Tablet PO (05:20)
[2024-10-12] MEDS: lipase-protease-amylase Capsule 3 EACH PO ×3 (05:21→17:34)
[2024-10-12] MEDS: heparin 5,000 unit/mL INJ 1 mL 5000 UNIT SUBCUT ×2 (05:21→17:35)
[2024-10-12] MEDS: levoFLOXacin 500 mg Tablet 250 MG PO (05:26)
[2024-10-12 06:02] VITALS: BMI 24.5
[2024-10-12 06:31] LABS: Glucose Point of Care 184 mg/dL (70-110)
[2024-10-12 07:51] VITALS: BP 112/72; PULSE 71; RESP 19; TEMP 36.8; O2SAT 99
[2024-10-12] MEDS: sennosides-docusate Tablet 1 TAB PO (08:49)
[2024-10-12] MEDS: sevelamer 800 mg Tablet PO ×3 (08:49→17:34)
[2024-10-12] MEDS: insulin lispro 100 unit/1 mL SUBCUT ×2 (08:49→17:35)
[2024-10-12] MEDS: carvedilol 12.5 mg Tablet PO ×2 (08:49→17:34)
[2024-10-12] MEDS: ACIDOPHILUS PROBIOTIC 1 EACH PO (08:50)
[2024-10-12 08:58] VITALS: PULSE 73; RESP 16; O2SAT 98
--- NOTE | 2024-10-12 09:31 | PM.PN ---
Subjective Subjective: no new complaints Medications: Reviewed: Yes Vitals/I&O/Wt Last Vital Signs Temp 98.3 F 10/12/24 07:51 Pulse 73 10/12/24 08:58 Resp 16 10/12/24 08:58 BP 112/72 10/12/24 07:51 Pulse Ox 98 10/12/24 08:58 O2 Del Method Room Air 10/12/24 08:58 10/11/24 10/12/24 10/12/24 22:59 06:59 14:59 Intake Total 740 / 1336 360 / 360 Output Total 1999 Balance -1260 / -664 360 / 360 Weight last 48 hrs Weight 71.033 kg Weight 73.2 kg Weight 76.158 kg Physical Exam Narrative: comfortable in bed, NARD VSS heent- nc/at, eomi neck supple lungs cler heart reg, + s1, s2 abd soft, + bs ext no edema LUE AVF w/ good thrill and bruit neuro- moves all extremities, a,a, o x 2+ Data 10/12/24 03:20 10/12/24 03:20 Micro: Microbiology 10/09/24 21:15 Urine Culture - Final Urine,Clean Catch A&P Assessment and plan (1) ESRD on dialysis: 1. UTI per medicine CRP is 193- +u/a. await ur cx. would consider giving abx - given that he was started on abx on oct 08, 2024 at [facility] 2. eSRD- - on HD per MWF schedule , 3. anemia- epo and iron studies 4. MBD : reduce renvela to 800mg tid 5. Generalized weakness 6. HTN : controlled 7.Recurrent UTI 's seen and examined using A/V equipment with the aide of a nurse he consents to telehealth visits and to hemodialysis Plan see above PDMP PDMP Reviewed: Not Reviewed Attestations Medical Necessity Statement*: per [place] Coding Level of Care Code Acute Code for Chg Fwd Diagnoses ESRD on dialysis N18.6; Z99.2
[2024-10-12 11:51] LABS: Glucose Point of Care 136 mg/dL (70-110)
[2024-10-12 12:00] VITALS: BP 128/62; PULSE 72; RESP 18; TEMP 36.8; O2SAT 97
[2024-10-12 16:00] VITALS: BP 155/78; PULSE 66; RESP 18; TEMP 36.7; O2SAT 96
[2024-10-12 16:13] LABS: Glucose Point of Care 234 mg/dL (70-110)
--- NOTE | 2024-10-12 16:40 | P.PN_ITS ---
Subjective 2 Subjective: No acute interim events. Participated with physical therapy today. Medications: Reviewed: Yes Vitals/I&O/Wt Last Vital Signs Temp 98.0 F 10/12/24 16:00 Pulse 66 10/12/24 16:00 Resp 18 10/12/24 16:00 BP 155/78 10/12/24 16:00 Pulse Ox 96 10/12/24 16:00 O2 Del Method Room Air 10/12/24 16:00 10/12/24 10/12/24 10/12/24 06:59 14:59 22:59 Intake Total 720 / 720 Balance 720 / 720 Weight last 48 hrs Weight 71.033 kg Weight 73.2 kg Weight 76.158 kg Physical Exam 2 Narrative: General: No acute distress, AO x3 HEENT: PERRLA, pupils bilaterally equal and reactive, pallors not present Chest: Normal vesicular breath sounds, no added sounds, equal good air entry bilaterally CVS: S1-S2 regular, no murmurs, no tachycardia, no gallops, no rubs Abdomen: Soft, nontender, no organomegaly, bowel sounds present Neuro: No focal deficits, no facial deformity, AO x3, power 5/5 in all limbs Data 10/12/24 03:20 10/12/24 03:20 Micro: Microbiology 10/09/24 21:15 Urine Culture - Final Urine,Clean Catch A&P Assessment and plan (1) ESRD on dialysis: (2) Recurrent falls: (3) UTI (urinary tract infection): Qualifiers: Hematuria presence: with hematuria Urinary tract infection type: site unspecified Qualified Code(s): N39.0 - Urinary tract infection, site not specified; R31.9 - Hematuria, unspecified Plan 74-year-old male with end-stage renal disease on hemodialysis, history of recurrent falls, diabetes with neuropathy, on outpatient physical therapy and recent SNF stay until recently. He has been feeling increasingly weak and deconditioned at home. His reports that it has been very difficult to take care of him as he needs and assistance at home. He was here in early September with simlar complants and had sustained a fall resulting in rib fractures and was also detected to have an L3 fracture. He has additionally had recurrent UTIs. PEr he had a cystocsopy in Aug 2024 with his urologist in [facility] which was grossly normal. URine cx here from September was without growth. Patient was transferred to [facility] [place] per his request the last time where reports his urine cx had shown E.coli. On oct 10 he was in the ER at [facility] where he was again diagnosed with a UTI and discharged with oral cephalosporins. HIs UA on current admission is +. HE is currently on Ceftriaxone 1g iv every 24h empirically which we will continue. Requesting urine cx from [facility] October 11, 2023: Urine cx taken here on admission thus far with mixed urogenital norm. Urine cx obtained from [facility] with > 100,000 Enterobacter Cloacae resistant to ceftriaxone. Isolate susceptible to cefepime, cipro, gentamicin, levaquin, nitrofuranotin, bactrim. Resistant ceftazidime, zosyn, CTX (likely ESBL). Change to renally dose fluoroquinolones. May need to consider possibility of prostatitis given recurrence of symptoms- reportedly this is 4th episode in one month. October 12, 2023 No acute interim events. Patient continue to participate with physical therapy. He is awaiting appropriate disposition planning for discharge. Exhibiting reduced endurance. states she would be unable to take care of patient at home. He was recently admitted with recurrent falls in September resulting in rib fracture. He has previously had an L3 compression fracture. Continue oral antibiotics for possible prostatitis. PDMP PDMP Reviewed: Not Reviewed Attestations 2 Medical Necessity Statement*: UTi,, disposition planning, exhibiting reduced endurance Coding Level of Care Code Acute Code for g Fwd Diagnoses ESRD on dialysis N18.6; Z99.2 Recurrent falls R29.6 UTI (urinary tract infection) N39.0; R31.9 Hematuria presence: with hematuria Urinary tract infection type: site unspecified
[2024-10-12] MEDS: allopurinol 100 mg Tablet 50 MG PO (17:34)
[2024-10-12] MEDS: tamsulosin 0.4 mg Capsule 0.8 MG PO (17:34)
[2024-10-12] MEDS: atorvastatin 40 mg Tablet PO (17:34)
[2024-10-12 19:37] VITALS: BP 144/73; PULSE 70; RESP 16; TEMP 36.4; O2SAT 100
[2024-10-13] VITALS (7 sets, daily range): BP systolic 129–190; BP diastolic 64–100; PULSE 68–99; RESP 16–18; TEMP 36.2–36.8; O2SAT 94–100
[2024-10-13] MEDS: levoFLOXacin 500 mg Tablet 250 MG PO (05:11)
[2024-10-13] MEDS: aspirin 81 mg EC Tablet PO (05:11)
[2024-10-13] MEDS: lipase-protease-amylase Capsule 3 EACH PO ×3 (05:11→17:11)
[2024-10-13] MEDS: heparin 5,000 unit/mL INJ 1 mL 5000 UNIT SUBCUT ×2 (05:11→17:11)
[2024-10-13 05:54] LABS: Basophils # 0.1 10^3/uL (0.0-0.1); Basophils % 1.2 %; Eosinophils # 0.4 10^3/uL (0.0-0.8); Eosinophils % 6.7 %; Hematocrit 31.4 % (37-53); Lymphocytes # 0.9 10^3/uL (0.8-4.8); Lymphocytes % 15.1 %; Mean Corpuscular HGB Conc 31.2 g/dL (30-55); Mean Corpuscular Hemoglobin 30.1 pg (27-33); Mean Corpuscular Volume 96.3 fl (82-101); Mean Platelet Volume 10.4 fL (7.4-10.4); Monocytes # 0.9 10^3/uL (0.2-0.9); Monocytes % 15.1 %; Neutrophils # 3.74 10^3/uL (1.8-7.7); Neutrophils % 61.6 %; Nucleated Red Blood Cells % 0 %; Platelet Count 188 10^3/cmm (157-399); Red Blood Count 3.26 10^6/uL (3.85-5.65); Red Cell Distribution Width 15.1 % (12.1-15.1); White Blood Count 6.08 10^3/uL (3.29-11.43)
[2024-10-13 06:13] LABS: Alanine Aminotransferase 17 U/L (0-41); Albumin Level 3.4 g/dL (3.5-5.2); Alkaline Phosphatase 130 U/L (40-130); Anion Gap 20.7 (5-19); Aspartate Amino Transferase 17 U/L (0-40); Blood Urea Nitrogen 44 mg/dL (8-23); Calcium 9.6 mg/dL (8.5-10.5); Carbon Dioxide 20 mmol/L (22-29); Chloride 102 mmol/L (98-107); Creatinine Clr Calc Pharmacy 13.3598; Globulin 2.9 g/dL (1.3-4.6); Glucose 164 mg/dL (65-115); Magnesium 2.1 mg/dL (1.7-2.3); Osmolality Calculated 301 mOsm/kg (285-295); Phosphorus 3.1 mg/dL (2.5-4.5); Potassium 4.7 mmol/L (3.5-5.1); Sodium 138 mmol/L (136-145); Total Bilirubin 0.3 mg/dL (0.15-1.2); Total Protein 6.3 g/dL (6.6-8.7)
[2024-10-13 06:15] LABS: Glucose Point of Care 174 mg/dL (70-110)
--- NOTE | 2024-10-13 10:08 | P.PN_ITS ---
Subjective 2 Subjective: no new complaints Medications: Reviewed: Yes Vitals/I&O/Wt Last Vital Signs Temp 97.6 F 10/13/24 08:00 Pulse 99 10/13/24 08:00 Resp 18 10/13/24 08:00 BP 190/94 10/13/24 08:00 Pulse Ox 97 10/13/24 08:00 O2 Del Method Room Air 10/13/24 08:00 10/12/24 10/13/24 10/13/24 22:59 06:59 14:59 Intake Total 720 / 1440 240 / 240 Output Total 300 / 300 Balance 420 / 1140 240 / 240 Weight last 48 hrs Weight 71.169 kg Weight 71.033 kg Weight 73.2 kg Physical Exam 2 Narrative: comfortable in bed, NARD VSS heent- nc/at, eomi neck supple lungs cler heart reg, + s1, s2 abd soft, + bs ext no edema LUE AVF w/ good thrill and bruit neuro- moves all extremities, a,a, o x 2+ Data 10/13/24 04:56 10/13/24 04:56 A&P Assessment and plan (1) ESRD on dialysis: 1. UTI per medicine CRP is 193- +u/a. await ur cx. would consider giving abx - given that he was started on abx on oct 08, 2024 at [facility] 2. eSRD- - on HD per MW schedule , HD tomorrow 3. anemia- epo and iron studies 4. MBD : reduce renvela to 800mg tid 5. Generalized weakness 6. HTN : controlled 7.Recurrent UTI 's seen and examined using A/V equipment with the aide of a nurse he consents to telehealth visits and to hemodialysis Plan see above PDMP PDMP Reviewed: Not Reviewed Attestations 2 Medical Necessity Statement*: per [place] Coding Level of Care Code Acute Code for Chg Fwd Diagnoses ESRD on dialysis N18.6; Z99.2
[2024-10-13] MEDS: sennosides-docusate Tablet 1 TAB PO (10:23)
[2024-10-13] MEDS: carvedilol 12.5 mg Tablet PO ×2 (10:23→17:11)
[2024-10-13] MEDS: insulin lispro 100 unit/1 mL SUBCUT ×3 (10:23→17:11)
[2024-10-13] MEDS: sevelamer 800 mg Tablet PO ×3 (10:23→17:11)
[2024-10-13] MEDS: ACIDOPHILUS PROBIOTIC 1 EACH PO (10:24)
[2024-10-13 11:57] LABS: Glucose Point of Care 295 mg/dL (70-110)
--- NOTE | 2024-10-13 15:56 | PM.PN ---
Subjective Subjective: No acute interim events. Patient is ambulatory with a walker within the room. States he is slightly better over the last 2 days. Medications: Reviewed: Yes Vitals/I&O/Wt Last Vital Signs Temp 97.8 F 10/13/24 12:00 Pulse 77 10/13/24 12:00 Resp 17 10/13/24 12:00 BP 172/94 10/13/24 12:00 Pulse Ox 97 10/13/24 12:00 O2 Del Method Room Air 10/13/24 12:00 10/13/24 10/13/24 10/13/24 06:59 14:59 22:59 Intake Total 720 / 720 Balance 720 / 720 Weight last 48 hrs Weight 71.169 kg Weight 71.033 kg Weight 73.2 kg Physical Exam Narrative: General: No acute distress, AO x3 HEENT: PERRLA, pupils bilaterally equal and reactive, pallors not present Chest: Normal vesicular breath sounds, no added sounds, equal good air entry bilaterally CVS: S1-S2 regular, no murmurs, no tachycardia, no gallops, no rubs Abdomen: Soft, nontender, no organomegaly, bowel sounds present Neuro: No focal deficits, no facial deformity, AO x3, power 5/5 in all limbs Data 10/13/24 04:56 10/13/24 04:56 Micro: Microbiology 10/09/24 21:15 Urine Culture - Final Urine,Clean Catch A&P Assessment and plan (1) ESRD on dialysis: (2) Recurrent falls: (3) UTI (urinary tract infection): Qualifiers: Hematuria presence: with hematuria Urinary tract infection type: site unspecified Qualified Code(s): N39.0 - Urinary tract infection, site not specified; R31.9 - Hematuria, unspecified Plan 74-year-old male with end-stage renal disease on hemodialysis, history of recurrent falls, diabetes with neuropathy, on outpatient physical therapy and recent SNF stay until recently. He has been feeling increasingly weak and deconditioned at home. His reports that it has been very difficult to take care of him as he needs and assistance at home. He was here in early September with simlar complants and had sustained a fall resulting in rib fractures and was also detected to have an L3 fracture. He has additionally had recurrent UTIs. PEr he had a cystocsopy in Aug 2024 with his urologist in [facility] which was grossly normal. URine cx here from September was without growth. Patient was transferred to [facility] per his request the last time where reports his urine cx had shown E.coli. On oct 10 he was in the ER at [facility] where he was again diagnosed with a UTI and discharged with oral cephalosporins. HIs UA on current admission is +. HE is currently on Ceftriaxone 1g iv every 24h empirically which we will continue. Requesting urine cx from [facility] October 11, 2024: Urine cx taken here on admission thus far with mixed urogenital norm. Urine cx obtained from [facility] with > 100,000 Enterobacter Cloacae resistant to ceftriaxone. Isolate susceptible to cefepime, cipro, gentamicin, levaquin, nitrofuranotin, bactrim. Resistant ceftazidime, zosyn, CTX (likely ESBL). Change to renally dose fluoroquinolones. May need to consider possibility of prostatitis given recurrence of symptoms- reportedly this is 4th episode in one month. October 12, 2024 No acute interim events. Patient continue to participate with physical therapy. He is awaiting appropriate disposition planning for discharge. Exhibiting reduced endurance. states she would be unable to take care of patient at home. He was recently admitted with recurrent falls in September resulting in rib fracture. He has previously had an L3 compression fracture. Continue oral antibiotics for possible prostatitis. October 13, 2024 No acute interim events. He is awaiting appropriate disposition planning. He does not think he will be able to manage independently at home, additionally reports he is having a harder time assisting patient with ADLs at home. We are awaiting disposition planning. Plan to treat with renally dosed levofloxacin for 6 weeks for potential prostatitis since this is patient's fourth episode of UTI in a month. Recommend follow-up with urology as outpatient. He reports he had a recent cystoscopy which was reportedly normal. I do not have results of the cystoscopy available for review currently. Plan hemodialysis tomorrow as per schedule. PDMP PDMP Reviewed: Not Reviewed Attestations Medical Necessity Statement*: UTi,possible prostatitis , disposition planning, exhibiting reduced endurance Coding Level of Care Code Acute Code for [facility] Fwd Diagnoses ESRD on dialysis N18.6; Z99.2 Recurrent falls R29.6 UTI (urinary tract infection) N39.0; R31.9 Hematuria presence: with hematuria Urinary tract infection type: site unspecified
[2024-10-13] MEDS: buPROPion XL (24 HR) 300 mg Tablet PO (16:00)
[2024-10-13 16:59] LABS: Glucose Point of Care 160 mg/dL (70-110)
[2024-10-13] MEDS: tamsulosin 0.4 mg Capsule 0.8 MG PO (17:11)
[2024-10-13] MEDS: atorvastatin 40 mg Tablet PO (17:11)
[2024-10-13 20:56] LABS: Glucose Point of Care 140 mg/dL (70-110)
[2024-10-14 04:19] VITALS: BP 146/85; PULSE 82; RESP 18; TEMP 36.4; O2SAT 98
[2024-10-14] MEDS: lipase-protease-amylase Capsule 3 EACH PO ×2 (05:08→12:33)
[2024-10-14] MEDS: aspirin 81 mg EC Tablet PO (05:08)
[2024-10-14] MEDS: heparin 5,000 unit/mL INJ 1 mL 5000 UNIT SUBCUT (05:09)
[2024-10-14] MEDS: levoFLOXacin 500 mg Tablet 250 MG PO (05:09)
[2024-10-14 05:42] LABS: Basophils # 0.1 10^3/uL (0.0-0.1); Basophils % 1.3 %; Eosinophils # 0.4 10^3/uL (0.0-0.8); Eosinophils % 6.3 %; Hematocrit 32.5 % (37-53); Lymphocytes # 1.1 10^3/uL (0.8-4.8); Lymphocytes % 17.6 %; Mean Corpuscular HGB Conc 31.1 g/dL (30-55); Mean Corpuscular Hemoglobin 30.5 pg (27-33); Mean Corpuscular Volume 98.2 fl (82-101); Mean Platelet Volume 10.2 fL (7.4-10.4); Monocytes # 0.8 10^3/uL (0.2-0.9); Monocytes % 12.3 %; Neutrophils # 3.81 10^3/uL (1.8-7.7); Neutrophils % 61.7 %; Nucleated Red Blood Cells % 0 %; Platelet Count 203 10^3/cmm (157-399); Red Blood Count 3.31 10^6/uL (3.85-5.65); Red Cell Distribution Width 15.1 % (12.1-15.1); White Blood Count 6.18 10^3/uL (3.29-11.43)
[2024-10-14 06:02] LABS: Alanine Aminotransferase 15 U/L (0-41); Albumin Level 3.3 g/dL (3.5-5.2); Alkaline Phosphatase 120 U/L (40-130); Anion Gap 20.8 (5-19); Aspartate Amino Transferase 12 U/L (0-40); Blood Urea Nitrogen 60 mg/dL (8-23); Calcium 9.7 mg/dL (8.5-10.5); Carbon Dioxide 19 mmol/L (22-29); Chloride 102 mmol/L (98-107); Creatinine Clr Calc Pharmacy 12.1559; Globulin 2.8 g/dL (1.3-4.6); Glucose 206 mg/dL (65-115); Osmolality Calculated 307 mOsm/kg (285-295); Potassium 4.8 mmol/L (3.5-5.1); Sodium 137 mmol/L (136-145); Total Bilirubin 0.3 mg/dL (0.15-1.2); Total Protein 6.1 g/dL (6.6-8.7)
[2024-10-14 06:33] LABS: Glucose Point of Care 217 mg/dL (70-110)
[2024-10-14] MEDS: carvedilol 12.5 mg Tablet PO (07:57)
[2024-10-14] MEDS: sevelamer 800 mg Tablet PO ×2 (07:57→12:32)
[2024-10-14] MEDS: ACIDOPHILUS PROBIOTIC 1 EACH PO (07:58)
[2024-10-14] MEDS: sennosides-docusate Tablet 1 TAB PO (07:58)
[2024-10-14] MEDS: insulin lispro 100 unit/1 mL SUBCUT ×2 (07:59→12:33)
[2024-10-14 08:00] VITALS: BP 120/76; PULSE 73; RESP 18; TEMP 36.4; O2SAT 98
--- NOTE | 2024-10-14 08:07 | P.PN_ITS ---
Subjective 2 Subjective: STill lightheaded, dizzy and weak. no n/v/f/c/valentino/d Medications: Reviewed: Yes Medication Review Details: Current Medications Acetaminophen (Acetaminophen 500 Mg Tablet) 500 mg PO Q4H PRN PRN Reason: fever Albuterol/Ipratropium (Ipratropium-Albuterol 3 Ml Neb) 3 ml INHALATION Q6H PRN PRN Reason: SHORTNESS OF BREATH Allopurinol (Allopurinol 100 Mg Tablet) 50 mg PO EVERY OTHER DAY@1800 [facility] Last Admin: 10/12/24 17:34 Dose: 50 mg Lipase/Protease/Amylase (Uobwvo-Rmaigken-Qjpdheg Capsule) 3 each PO 0600,1100,1700 [facility] Last Admin: 10/14/24 05:08 Dose: 3 each Aspirin (Aspirin 81 Mg Ec Tablet) 81 mg PO QAM [facility] Last Admin: 10/14/24 05:08 Dose: 81 mg Atorvastatin Calcium (Atorvastatin 40 Mg Tablet) 40 mg PO QPM [facility] Last Admin: 10/13/24 17:11 Dose: 40 mg Bupropion HCl (Bupropion Xl (24 Hr) 300 Mg Tablet) 300 mg PO DAILY@1200 [facility] Last Admin: 10/13/24 16:00 Dose: 300 mg Carvedilol (Carvedilol 12.5 Mg Tablet) 12.5 mg PO BID [facility] Last Admin: 10/14/24 07:57 Dose: 12.5 mg Colchicine (Colchicine 0.6 Mg Tablet) 0.3 mg PO TuTh [facility] Glucagon (Glucagon 1 Mg/Ml Kit 1 Ml) 1 mg IM ONCE PRN; Protocol PRN Reason: Adult Acute Hypoglycemia Nursing Prot. Heparin Sodium (Porcine) (Heparin 5,000 Unit/Ml Inj 1 Ml) 5,000 unit SUBCUT Q12H [facility] Last Admin: 10/14/24 05:09 Dose: 5,000 unit Dextrose (D5w) 500 mls @ 0 mls/hr IV ONCE PRN; Protocol PRN Reason: Adult Acute Hypoglycemia Prot Dextrose (D10w) 125 mls @ 750 mls/hr IV PRN PRN; Protocol PRN Reason: Adult Acute Hypoglycemia Nursing Protocol Dextrose (D10w) 250 mls @ 1,000 mls/hr IV PRN PRN; Protocol PRN Reason: Adult Acute Hypoglycemia Nursing Protocol Sodium Chloride (Sodium Chloride 0.9%) 1,000 mls @ 0 mls/hr IV .Q0M PRN PRN Reason: hypotension or symptomatic Albumin Human (Albumin) 12.5 gm in 50 mls @ 60 mls/hr IV PRN PRN PRN Reason: Hypotension and/or symptomatic Insulin Human Lispro (Insulin Lispro 100 Unit/1 Ml) 0 unit SUBCUT TIDWM [facility]; Protocol Last Admin: 10/14/24 07:59 Dose: 4 unit Levofloxacin (Levofloxacin 500 Mg Tablet) 250 mg PO DAILY@0600 [facility]; Protocol Last Admin: 10/14/24 05:09 Dose: 250 mg Non-Formulary Medication( Acidophilus Probiotic) 1 each PO DAILY [facility] Last Admin: 10/14/24 07:58 Dose: 1 each Ondansetron HCl (Ondansetron 2 Mg/Ml Sdv 2 Ml) 4 mg IVP Q6H PRN PRN Reason: NAUSEA AND VOMITING Senna/Docusate Sodium (Sennosides-Docusate Tablet) 1 tab PO DAILY [facility] Last Admin: 10/14/24 07:58 Dose: 1 tab Sevelamer Carbonate (Sevelamer 800 Mg Tablet) 800 mg PO TIDWM [facility] Last Admin: 10/14/24 07:57 Dose: 800 mg Tamsulosin HCl (Tamsulosin 0.4 Mg Capsule) 0.8 mg PO QPM [facility] Last Admin: 10/13/24 17:11 Dose: 0.8 mg Vitals/I&O/Wt Last Vital Signs Temp 97.6 F 10/14/24 04:19 Pulse 82 10/14/24 04:19 Resp 18 10/14/24 04:19 BP 146/85 10/14/24 04:19 Pulse Ox 98 10/14/24 04:19 O2 Del Method Room Air 10/14/24 04:19 10/13/24 10/14/24 10/14/24 22:59 06:59 14:59 Intake Total 480 / 1200 180 / 1380 360 / 360 Balance 480 / 1200 180 / 1380 360 / 360 Weight last 48 hrs Weight 72.529 kg Weight 71.169 kg Physical Exam 2 Narrative: comfortable in bed, NARD VSS heent- nc/at, eomi neck supple lungs cler heart reg, + s1, s2 abd soft, + bs ext no edema LUE AVF w/ good thrill and bruit neuro- moves all extremities, a,a, o x 3 Data 10/14/24 04:30 10/14/24 04:30 A&P Assessment and plan (1) ESRD on dialysis: 74 yr old man ESRD on HD MWF, recurrent falls, DM w/ DM neuropathy and nephroapthy. 1. UTI- currently on levaquin for 6 weeks- consern of prostatitis 2. eSRD- - on HD per MWF schedule , HD today 3. htn controlled 4. anemia- epo and iron sat 9.7%, ferritin 2223- no need for iron 5. MBD : monitor phos on reduced dose of renvela 800mg tid seen and examined using A/V equipment with the aide of a nurse he consents to telehealth visits and to hemodialysis Plan see above PDMP PDMP Reviewed: Not Reviewed Attestations 2 Medical Necessity Statement*: esrd, uti- per medical team Time Spent in Patient Care: 16 - 35 minutes (>than 50% of time sp ent in counselling and/or direct pt care on unit) . Coding Level of Care Code Acute Code for Chg Fwd Diagnoses ESRD on dialysis N18.6; Z99.2
--- NOTE | 2024-10-14 10:27 | PC.NURSE ---
patient educated on risk of not using SCD's, refused to wear them.
[2024-10-14 11:52] LABS: Glucose Point of Care 194 mg/dL (70-110)
[2024-10-14 12:00] VITALS: BP 135/74; PULSE 71; RESP 17; TEMP 36.3; O2SAT 97
[2024-10-14] MEDS: buPROPion XL (24 HR) 300 mg Tablet PO (12:32)
--- NOTE | 2024-10-14 13:26 | P.DS_ITS ---
Discharge Providers Date of Admission: 10/09/24 22:43 Date of Discharge: October 14, 2024 Attending Provider at Admission: José Gan MD Attending Provider at Discharge: Fatoumata Gomez MD Primary Care Provider: Annmarie Jacobson MD Diagnoses at Discharge Discharge Diagnosis (1) ESRD on dialysis: Status: Acute Reason for Visit Reason for Visit: weakness, Fall Hospital Course Hospital Course Patient presented to the hospital with history of multiple comorbidities on hemodialysis 3 times a week. He has been having recurrent falls at home. He has had a rib fracture in the past as well as he was admitted here in September. He had elevated troponins at which time he was transferred to [facility] for further evaluation. Cardiac evaluation was negative. Patient presented for generalized weakness. He did have a UTI recently and culture from outside hospital showed Enterobacter which was sensitive to fluoroquinolones. This is patient's fourth episode of UTI in this month therefore we suspect prostatitis and are planning to do 6 weeks of levofloxacin for treatment. He can follow-up with urology as an outpatient. Patient and requesting senior care placement. He has been accepted to senior care today. Will be going to nursing facility after dialysis is complete. Physical Exam Narrative: comfortable in bed, NARD VSS heent- nc/at, eomi neck supple lungs cler heart reg, + s1, s2 abd soft, + bs ext no edema LUE AVF w/ good thrill and bruit neuro- moves all extremities, a,a, o x 3 Discharge Data Studies Completed and Pending Completed Studies During Hospitalization Category Date Time Status CT head wo con* [id number] Stat Cat Scan 10/09/24 19:06 Completed XR chest 1V portable [id number] Stat Exams 10/09/24 17:16 Completed Pending at discharge Category Date Time Status Complete Blood Count w/Auto AM LABS Lab 10/15/24 04:00 Ordered Complete Blood Count w/Auto AM LABS Lab 10/16/24 04:00 Ordered Complete Blood Count w/Auto AM LABS Lab 10/17/24 04:00 Ordered Comprehensive Metabolic Panel AM LABS Lab 10/15/24 04:00 Ordered Comprehensive Metabolic Panel AM LABS Lab 10/16/24 04:00 Ordered Comprehensive Metabolic Panel AM LABS Lab 10/17/24 04:00 Ordered Magnesium AM LABS Lab 10/15/24 04:00 Ordered Magnesium AM LABS Lab 10/16/24 04:00 Ordered Magnesium AM LABS Lab 10/17/24 04:00 Ordered Phosphorus AM LABS Lab 10/15/24 04:00 Ordered Phosphorus AM LABS Lab 10/16/24 04:00 Ordered Phosphorus AM LABS Lab 10/17/24 04:00 Ordered SARS Covid-2 Antigen Stat Lab 10/14/24 12:41 Uncollected Radiology Impressions Chest X-Ray 10/09/24 17:16 IMPRESSION: No acute findings Head CT 10/09/24 19:06 IMPRESSION: 1. No acute findings. 2. 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 3. Age-related changes and microangiopathy. Laboratory Results WBC 6.18 10^3/uL (3.29-11.43) 10/14/24 04:30 RBC 3.31 10^6/uL (3.85-5.65) L 10/14/24 04:30 Hgb 10.10 g/dL (11.27-16.99) L 10/14/24 04:30 Hct 32.5 % (37-53) L 10/14/24 04:30 MCV 98.2 fl (82-101) 10/14/24 04:30 MCH 30.5 pg (27-33) 10/14/24 04:30 MCHC 31.1 g/dL (30-55) 10/14/24 04:30 RDW 15.1 % (12.1-15.1) 10/14/24 04:30 Plt Count 203 10^3/cmm (157-399) 10/14/24 04:30 MPV 10.2 fL (7.4-10.4) 10/14/24 04:30 Neut % (Auto) 61.7 % 10/14/24 04:30 Lymph % (Auto) 17.6 % 10/14/24 04:30 Fannin % (Auto) 12.3 % 10/14/24 04:30 Eos % (Auto) 6.3 % 10/14/24 04:30 Baso % (Auto) 1.3 % 10/14/24 04:30 Neut # (Auto) 3.81 10^3/uL (1.8-7.7) 10/14/24 04:30 Lymph # (Auto) 1.1 10^3/uL (0.8-4.8) 10/14/24 04:30 Fannin # (Auto) 0.8 10^3/uL (0.2-0.9) 10/14/24 04:30 Eos # (Auto) 0.4 10^3/uL (0.0-0.8) 10/14/24 04:30 Baso # (Auto) 0.1 10^3/uL (0.0-0.1) 10/14/24 04:30 Nucleated RBC % (auto) 0 % 10/14/24 04:30 Nucleated RBCs # 0.0 /100WBC 10/14/24 04:30 PT 13.60 SECONDS (12.1-14.9) 10/09/24 19:05 INR 0.97 (0.8-1.2) 10/09/24 19:05 Sodium 137 mmol/L (136-145) 10/14/24 04:30 Potassium 4.8 mmol/L (3.5-5.1) 10/14/24 04:30 Chloride 102 mmol/L (98-107) 10/14/24 04:30 Carbon Dioxide 19 mmol/L (22-29) L 10/14/24 04:30 Anion Gap 20.8 (5-19) H 10/14/24 04:30 BUN 60 mg/dL (8-23) H 10/14/24 04:30 Creatinine 5.1 mg/dL (0.7-1.2) H 10/14/24 04:30 GFR Calculation Not Reportable 10/14/24 04:30 Glucose 206 mg/dL (65-115) H 10/14/24 04:30 POC Glucose 194 mg/dL (70-110) H 10/14/24 11:01 Calculated Osmolality 307 mOsm/kg (285-295) H 10/14/24 04:30 Calcium 9.7 mg/dL (8.5-10.5) 10/14/24 04:30 Phosphorus 3.1 mg/dL (2.5-4.5) 10/13/24 04:56 Magnesium 2.1 mg/dL (1.7-2.3) 10/13/24 04:56 Iron 15 ug/dL (59-158) L 10/10/24 04:46 TIBC 154 mcg/dl 10/10/24 04:46 % Saturation 9.7 % (20-50) L 10/10/24 04:46 Unsat Iron Binding 139 ug/dL (112-347) 10/10/24 04:46 Ferritin 2223 ng/mL (30-400) H 10/10/24 04:46 Total Bilirubin 0.3 mg/dL (0.15-1.2) 10/14/24 04:30 AST 12 U/L (0-40) 10/14/24 04:30 ALT 15 U/L (0-41) 10/14/24 04:30 Alkaline Phosphatase 120 U/L (40-130) 10/14/24 04:30 C-Reactive Protein 193.6 mg/L (0.0-4.9) H 10/10/24 04:46 Total Protein 6.1 g/dL (6.6-8.7) L 10/14/24 04:30 Albumin 3.3 g/dL (3.5-5.2) L 10/14/24 04:30 Globulin 2.8 g/dL (1.3-4.6) 10/14/24 04:30 Lipase 5 U/L (13-60) L 10/09/24 19:05 Vitamin B12 535 pg/mL (232-1245) 10/09/24 19:05 TSH 0.84 uIU/mL (0.27-4.20) 10/10/24 04:46 Urine Color Yellow (Yellow) 10/09/24 21:15 Urine Appearance Clear (CLEAR) 10/09/24 21:15 Urine pH >=9.0 (5-7) A 10/09/24 21:15 Ur Specific Wallace 1.010 (1.005-1.030) 10/09/24 21:15 Urine Protein 2+ (Negative) A 10/09/24 21:15 Urine Glucose (UA) Trace (Normal) H 10/09/24 21:15 Urine Ketones Negative (Negative) 10/09/24 21:15 Urine Blood Negative (Negative) 10/09/24 21:15 Urine Nitrate Negative (Negative) 10/09/24 21:15 Urine Bilirubin Negative (Negative) 10/09/24 21:15 Urine Urobilinogen 0.2 mg/dL (Negative) 10/09/24 21:15 Ur Leukocyte Esterase 1+ (Negative) A 10/09/24 21:15 Urine RBC 0-2 /hpf (0-2) 10/09/24 21:15 Urine WBC 51-100 /hpf (0-5) H 10/09/24 21:15 Ur Squamous Epith Cells 0-5 /hpf (0-5) 10/09/24 21:15 Amorphous Sediment Not Reportable 10/09/24 21:15 Urine Bacteria None seen /hpf (NONE) 10/09/24 21:15 Hyaline Casts 0.40 /lpf 10/09/24 21:15 Urine Sperm 1+ /hpf 10/09/24 21:15 Coronavirus (PCR) Negative (Negative) 10/09/24 19:45 Influenza A (PCR) Negative (Negative) 10/09/24 19:45 Influenza Type B (PCR) Negative (Negative) 10/09/24 19:45 RSV (PCR) Negative (Negative) 10/09/24 19:45 Vitals Last Vital Signs Temp 97.5 F L 10/14/24 08:00 Pulse 73 10/14/24 08:00 Resp 18 10/14/24 08:00 BP 120/76 10/14/24 08:00 Pulse Ox 98 10/14/24 08:00 O2 Del Method Room Air 10/14/24 08:00 Discharge Plan Discharge Patient Disposition: Xfer SNF Condition: Stable Prescriptions: New levofloxacin 500 mg Tablet 250 mg PO DAILY@0600 Qty: 40 0RF Continued Lantus Solostar U-100 Insulin 100 unit/mL (3 mL) insulin pen See Rx Instructions .ROUTE .COMPLEX Rx Instructions: INJECT 8 UNITS PER SLIDING SCALE AT BEDTIME. cholecalciferol (vitamin D3) 50 mcg (2,000 unit) capsule 50 mcg PO .@NOON omeprazole 20 mg capsule,delayed release(DR/EC) 20 mg PO QAM colchicine [Colcrys] 0.6 mg tablet See Rx Instructions .ROUTE .COMPLEX Rx Instructions: 0.3 mg orally TWO TIMES A WEEK- MONDAY AND MONDAY ascorbic acid (vitamin C) 500 mg tablet 1,000 mg PO QPM tamsulosin 0.4 mg capsule 0.8 mg PO QPM Creon 12,000-38,000 -60,000 unit capsule,delayed release(DR/EC) 3 cap PO TID Rx Instructions: administer with meals and/or snacks insulin lispro [Humalog KwikPen Insulin] 100 unit/mL insulin pen See Rx Instructions .ROUTE .COMPLEX Rx Instructions: INJECT PER SLIDING SCALE THREE TIMES DAILY UP TO 12 UNITS. Alexandra-Oliva Rx 1-60-300 mg-mg-mcg tablet 1 tab PO .@NOON sevelamer HCl 800 mg tablet 1,600 mg PO TID Rx Instructions: must administer with a meal/food sodium bicarbonate 650 mg tablet 650 mg PO QID carvedilol 12.5 mg tablet See Rx Instructions .ROUTE .COMPLEX Rx Instructions: Take 12.5 mg by mouth at noon and bedtime. aspirin 81 mg Tablet,Delayed Release (Dr/Ec) 81 mg PO QAM bupropion HCl 300 mg Tablet Extended Release 24 Hr 300 mg PO .@NOON atorvastatin 80 mg Tablet 40 mg PO QPM ferrous sulfate 325 mg (65 mg iron) Tablet 325 mg PO BID oxybutynin chloride 5 mg Tablet 5 mg PO TID Held midodrine 5 mg tablet 5 mg PO TID Hold Instructions: see pcp Rx Instructions: do not give last dose of day after 6PM or within 4 hrs of bedtime Discontinued allopurinol 100 mg tablet 200 mg PO QPM Discharge Orders: Discharge Order (Routine); Ordered 10/14/24 Ordered By: Fatoumata Gomez Referrals: Annmarie Jacobson MD [Primary Care Provider] - 4-7 days Discharge Diet: Usual diet Discharge Activity: As per PT/OT instructions Activity Restrictions/Additional Instructions: Continue to follow-up with urologist in [place] after discharge. Discharge Attestations Time Spent in Discharge Care*: greater than 30 min Quality Metrics Clinical Quality Measures [ No reported AMI, CVA or VTE this stay] Coding Level of Care Code Acute Code for Chg Fwd Diagnoses ESRD on dialysis N18.6; Z99.2
--- NOTE | 2024-10-14 15:10 | PC.NURSE ---
Report called to [facility]
[2024-10-14 15:21] LABS: Influenza A NEGATIVE (Negative); Influenza B NEGATIVE (Negative); Respiratory Syncytial Virus Ce NEGATIVE (Negative); SARS-CoV-2 PCR NEGATIVE (Negative)
[2024-10-14 16:00] VITALS: BP 103/67; PULSE 79; RESP 17; TEMP 36.5; O2SAT 98
[2024-10-14 17:14] VITALS: BP 164/90; PULSE 108; RESP 18; TEMP 36.2
[2024-10-14 17:43] LABS: Glucose Point of Care 183 mg/dL (70-110)
[2024-10-14 18:25] VITALS: BP 140/84; PULSE 90; RESP 18; TEMP 36.2
== END 2024-10-14 18:49 | disposition skilled nursing facility (03) ==
LOC: ER 22:43 → MEDSURG 23:13
PROVIDERS: Emergency Medicine; Internal Medicine Nephrology; Student in an Organized Health Care Education/Training Program; Admitting Provider Internal Medicine; Emergency Provider Emergency Medicine; PCP Family Medicine; Visit Provider Internal Medicine
DX: N39.0 Urinary tract infection, site not specified (principal); R53.1 Weakness; F32.A Depression, unspecified; F41.9 Anxiety disorder, unspecified; K21.9 Gastro-esophageal reflux disease without esophagitis; Z87.440 Personal history of urinary (tract) infections; Z79.899 Other long term (current) drug therapy; Z79.4 Long term (current) use of insulin; Z79.82 Long term (current) use of aspirin; Z85.51 Personal history of malignant neoplasm of bladder; Z90.49 Acquired absence of other specified parts of digestive tract; Z86.0100 Personal history of colon polyps, unspecified; E11.22 Type 2 diabetes mellitus with diabetic chronic kidney disease; N18.6 End stage renal disease; Z99.2 Dependence on renal dialysis; Z86.73 Personal history of transient ischemic attack (TIA), and cerebral infarction without residual deficits; Z87.442 Personal history of urinary calculi; Z87.891 Personal history of nicotine dependence; Z11.52 Encounter for screening for COVID-19; B96.20 Unspecified Escherichia coli [E. coli] as the cause of diseases classified elsewhere; R29.6 Repeated falls; E11.21 Type 2 diabetes mellitus with diabetic nephropathy; R53.83 Other fatigue; E11.40 Type 2 diabetes mellitus with diabetic neuropathy, unspecified; Z90.5 Acquired absence of kidney; Z95.1 Presence of aortocoronary bypass graft; R27.0 Ataxia, unspecified; R51.9 Headache, unspecified; D64.9 Anemia, unspecified; M89.8X9 Other specified disorders of bone, unspecified site
CPT/HCPCS: 36415; 36416; 70450; 71045; 80048; 80053; 81001; 82607; 82728; 82962; 83540; 83550; 83690; 83735; 84100; 84443; 85025; 85610; 86140; 87086; 87637; 90935; 93005; 96372; 96374; 96376; 97110; 97116; 97162; 99285; G0378; J0696; J1644; J1815